=== PATIENT | female | born 1945 | race Caucasian/White ===

== ENCOUNTER → 2018-06-07 14:03 | Outpatient (CLI) | payer MEDICARE, MEDICAID, SELFPAY ==
--- NOTE | 2018-06-07 14:11 | NVE_ITS ---
Venous Exam Indications: 729.5 Pain in limb. IMPRESSIONS 1. There is no evidence of significant Reflux. 2. No evidence of deep or superficial vein thrombosis involving the left lower extremity Left lower extremity venous duplex evaluation. Doppler flow study including spectral analysis, color and chan scale imaging. Location: Vascular laboratory. Patient status: Outpatient. CRITICAL FINDINGS - Reported to: CHANTE - Read back and verified. - 06/07/18 - 0242 - NONE Tables: Venous flow and imaging: + +-------+ + Location Overall Flow properties + +-------+ + Left common femoral Patent Normal phasicity; spontaneous; normal augmentation; compressible + +-------+ + Left saphenofemoral junction Patent Compressible + +-------+ + Left profunda femoral Patent Compressible + +-------+ + Left femoral Patent Normal phasicity; spontaneous; normal augmentation; compressible + +-------+ + Left greater saphenous Patent Normal phasicity; spontaneous; normal augmentation; compressible + +-------+ + Left popliteal Patent Normal phasicity; spontaneous; normal augmentation; compressible + +-------+ + Left posterior tibial Patent Compressible + +-------+ + Left peroneal Patent Compressible + +-------+ + Left gastrocnemius Patent Compressible + +-------+ + Left soleal Patent Compressible + +-------+ + (Report amended ) Electronically signed by: Christophe Truong [id number]
--- NOTE | 2018-06-07 14:32 | XR_ITS ---
XR tibia fibula LT 2V CLINICAL INDICATION: ITS.REASON: LT LEG INJURY, SWELLING ORDERING PHYSICIAN: Lorraine Hunter PATIENT AGE: 72 years Comparison: None FINDINGS: No fracture or dislocation. IMPRESSION: Negative left tib-fib
== END ==
PROVIDERS: PCP Nurse Practitioner Family; Visit Provider Nurse Practitioner Family
DX: M79.604 Pain in right leg (principal); M79.89 Other specified soft tissue disorders; S89.92XA Unspecified injury of left lower leg, initial encounter
CPT/HCPCS: 73590; 93971

== ENCOUNTER 2019-01-04 19:35 | Inpatient (IN) ==
[2019-01-04 20:18] LABS: Basophils % 0.3 % (0.1-2.0); Eosinophils # 0.1 K/mm3 (0.0-0.4); Eosinophils % 0.6 % (0.1-12.0); Hematocrit 42.6 % (37.0-47.0); Hemoglobin 13.9 g/dL (12.2-16.2); Lymphocytes # 1.4 K/mm3 (0.7-4.5); Lymphocytes % 9.5 % (10-50); Mean Corpuscular HGB Conc 32.6 g/dL (31.8-35.4); Mean Corpuscular Hemoglobin 30.7 pg (27.0-31.2); Mean Corpuscular Volume 94.2 fl (81-99); Mean Platelet Volume 8.6 fl (7.4-10.4); Monocytes # 0.9 K/mm3 (0.1-1.0); Monocytes % 6.4 % (1.7-9.3); Neutrophils # 11.9 K/mm3 (1.8-7.8); Neutrophils % 83.2 % (37.0-80.0); Platelet Count 210 K/mm3 (142-424); Red Blood Count 4.52 M/mm3 (4.20-5.40); Red Cell Distribution Width 12.6 % (11.5-17.5); White Blood Count 14.3 K/mm3 (4.8-10.8)
[2019-01-04 20:30] LABS: Microscopic, Urine URINE MICROSCOPIC (MICROSCOPIC)
[2019-01-04 20:35] LABS: Appearance,Urine CLEAR (Clear); Bilirubin,Urine Negative (Negative); Blood, Urine Negative (Negative); Color,Urine YELLOW (Yellow); Glucose,Urine (UA) Negative (Negative); Ketones,Urine Negative (Negative); Leukocyte Esterase,Urine Negative (Negative); PH,Urine 6.5 (5.0-8.5); Protein,Urine Negative (Negative); Specific Gravity, Urine 1.015 (1.005-1.030); Urobilinogen,Urine 0.2 EU/dl (0.2)
[2019-01-04 20:35] LABS: Albumin Level 3.5 gm/dL (3.4-5.0); Albumin/Globulin Ratio 0.9 (1.1-1.8); Bilirubin,Total 0.5 mg/dL (0.2-1.0); C-Reactive Protein 4.4 mg/L (0.0-0.9); Calcium 8.7 mg/dL (8.5-10.1); Globulin 3.7 gm/dl (1.3-3.2); Total Protein,Serum 7.2 gm/dL (6.4-8.2)
[2019-01-04 20:48] LABS: Bacteria,Urine Trace /lpf; WBC,Urine Occasional #/hpf (0-3)
[2019-01-04 21:43] LABS: Erythrocyte Sedimentation Rate 33 mm/hr (0-30)
--- NOTE | 2019-01-04 21:52 | Emergency Department Note ---
ED Disposition Clinical Impression: Diverticulitis, jejunum, Tobacco use, Diverticulosis, AAA (abdominal aortic aneurysm) without rupture, Adrenal mass, left Cholelithiasis Qualifiers: Cholelithiasis location: gallbladder Cholecystitis presence: without cholecystitis Biliary obstruction: without biliary obstruction Qualified Cod e(s): K80.20 - Calculus of gallbladder without cholecystitis without obstruction Disposition: Admitted As Inpatient Condition on Discharge: Good Instructions: DI for Acute Abdomen Referrals: Neftali Quinn MD [Primary Care Provider] - - Critical Care Critical Care Time: No Attestation: On 01/04/19, the high probability of a clinically significant, sudden or life threatening deterioration of the following system(s) required my full and direct attention, intervention and personal management. The time I documented below is in addition to time spent performing reported procedures but includes the following listed in this critical care notation. Medical Decision Making - Medical Records Medical records reviewed: Yes: I reviewed the patient's medical records. - Nico Inquiry Pt receiving controlled substance: No Vital Signs: 01/04/19 19:36 01/04/19 20:32 01/04/19 21:32 Temperature 101.8 F H 100.8 F H Temperature Source Rectal Rectal Pulse Rate [Right] 90 71 78 Respiratory Rate 20 20 20 Blood Pressure [Right Arm] 110/67 115/73 116/68 Blood Pressure Mean [Right Arm] 81 87 84 02 Sat by Pulse Oximetry 94 L 87 L 99 Oxygen Delivery Method Room Air Nasal Cannula Oxygen Flow Rate (LPM) 2 - Lab Data Lab results reviewed: Yes: I reviewed the patient's lab results. Lab Results 01/04/19 20:01: WBC 14.3 H, RBC 4.52, Hgb 13.9, Hct 42.6, MCV 94.2, MCH 30.7, MCHC 32.6, RDW 12.6, Plt Count 210, MPV 8.6, Neut % (Auto) 83.2 H, Lymph % (Auto) 9.5 L, [place] % (Auto) 6.4, Eos % (Auto) 0.6, Baso % (Auto) 0.3, Neut # (Auto) 11.9 H, Lymph # (Auto) 1.4, [place] # (Auto) 0.9, Eos # (Auto) 0.1, Baso # (Auto) 0.0, ESR 33 H 01/04/19 20:01: Sodium 137, Potassium 4.0, Chloride 103, Carbon Dioxide 26, Anion Gap 12.0, BUN 11, Creatinine 0.87, Estimated Creat Clear 63, Estimated GFR 64, Est GFR ( Amer) 77, Glucose 131 H, Calcium 8.7, Total Bilirubin 0.5, AST 11 L, ALT 21, Alkaline Phosphatase 109, C-Reactive Protein 4.4 H, Total Protein 7.2, Albumin 3.5, Globulin 3.7 H, Albumin/Globulin Ratio 0.9 L, Amylase 48, Lipase 100 01/04/19 20:01: Lactate 1.3 01/04/19 20:01: Troponin I < 0.02 01/04/19 20:25: Urine Color Yellow, Urine Appearance Clear, Urine pH 6.5, Ur Specific [place] 1.015, Urine Protein Negative, Urine Glucose (UA) Negative, Urine Ketones Negative, Urine Blood Negative, Urine Nitrate Negative, Urine Bilirubin Negative, Urine Urobilinogen 0.2, Ur Leukocyte Esterase Negative, Urine WBC Occasional, Ur Squamous Epith Cells 3-5, Urine Bacteria Trace 01/04/19 22:15: Specimen Source R/r, O2 % 2, ABG pH 7.42, ABG pCO2 37.5, ABG pO2 91.8, ABG HCO3 23.5, ABG Total CO2 24.7, ABG O2 Saturation 97, ABG Base Excess - 1.1, Christophe Test Y Result diagrams: 01/04/19 20:01 01/04/19 20:01 Orders (Tests/Meds): ED MEDICATIONS Generic Name Dose Route Start Last Admin Trade Name Celia PRN Reason Stop Dose Admin Sodium Chloride 1,000 mls @ 999 mls/hr 01/04/19 20:00 01/04/19 20:26 Sod Chlor 0.9% 1000ml Bag IV 01/04/19 21:00 999 mls/hr .Q1H1M MANE Administration Levofloxacin/Dextrose 750 mg in 150 mls @ 100 mls/hr 01/04/19 22:15 Levofloxacin 750mg/150ml Premix IV 01/18/19 22:14 Q24H MANE Protocol Metronidazole 500 mg in 100 mls @ 100 mls/hr 01/04/19 22:15 Flagyl 500mg/100ml Ivpb IV 01/18/19 22:14 Q8H MANE Protocol Discontinued Medications Generic Name Dose Route Start Last Admin Trade Name Celia PRN Reason Stop Dose Admin Acetaminophen 650 mg 01/04/19 20:15 01/04/19 20:26 Acetaminophen 650mg Suppository RC 01/04/19 20:16 650 mg ONCE ONE Administration Ioversol 75 ml 01/04/19 21:30 01/04/19 21:31 Rad-Optiray 350 100ml Vial IV 01/04/19 21:31 75 ml ONCE ONE Administration Protocol Ketorolac Tromethamine 30 mg 01/04/19 21:29 01/04/19 21:29 Toradol 30mg/Ml Vial IV 01/04/19 21:30 30 mg ONCE ONE Administration Ondansetron HCl 4 mg 01/04/19 21:29 01/04/19 21:29 Zofran 4mg/2ml Vial IV 01/04/19 21:30 4 mg ONCE ONE Administration Sodium Chloride 10 ml 01/04/19 21:30 01/04/19 21:31 Rad-Saline Flush 10ml Syringe IV 01/04/19 21:31 10 ml ONCE ONE Administration ORDERS Category Date Time Status CT abdomen pelvis w con Stat Cat Scan 01/04/19 19:46 Taken XR chest portable Stat Exams 01/04/19 21:52 Taken Blood Culture Stat Micro 01/04/19 20:01 Received ABG [Arterial Blood Gas] Stat RT 01/04/19 21:56 Ordered ECG Request by /Morales Stat Y 01/04/19 21:52 Ordered - CT Data CT Scan: Abdomen, Pelvis Time Received: 21:[address] Reviewed: Yes: I have viewed the radiologist's interpretation Preliminary Findings: Abnormal (see report ) - ECG Data Tracing #1 Normal Sinus Rhythm: Yes Ischemic changes: non-specific ST-T wave changes - Physician Consults Physician Consulted: moise Reason -: Admission Additional Consult: sunitha Reason -: Pt condition Nausea/Vomiting/Diarrhea HPI - General Chief complaint: Abdominal Pain Stated complaint: Abdominal pain Time Seen by Provider: 01/04/19 20:30 Mode of Arrival: EMS Source of Information: Patient, Medical Record Limitations: No Limitations Description of Symptoms (Recalled from ER Triage Doc. by RN): Pt brought in for abdominal pain. Pt states she is having lower abdominal pain that radiates to her legs, pt also states she has had fatigue, denies NVD. - History of Present Illness HPI Narrative: upper abd pain with nausea over the last 2 days MD complaint: nausea, abdominal pain Onset (ago): day(s) Associated Abdominal Pain: Yes Location of pain: LUQ Severity: moderate Associated symptoms: denies other symptoms - Related Data Home Medications Medication Instructions Recorded Confirmed Aspirin [Aspir 81] 81 mg PO DAILY 01/04/19 01/04/19 Multivitamin [Multi-Vitamin Plain] 1 each PO DAILY 01/04/19 01/04/19 Allergies Allergy/AdvReac Type Severity Reaction Status Date / Time diphtheria toxoid,fluid Allergy Unknown Verified 05/25/18 15:27 [DIPHTHERIA TOXOID,FLUID] Penicillins [PENICILLINS] Allergy Unknown Verified 05/25/18 15:27 Sulfa (Sulfonamide Allergy Unknown Verified 05/25/18 15:27 Antibiotics) [SULFA (SULFONAMIDE ANTIBIOTICS)] tetanus and diphtheria Allergy Unknown Verified 05/25/18 15:27 toxoids [TETANUS & DIPHTHERIA TOXOIDS] [facility] History - Hepatitis A Screen Drug use history?: No High risk sexual behaviors?: No History of sexually transmitted infection?: No Currently employed?: No Childcare worker?: No Do you have indoor plumbing?: Yes Do you have electricity?: Yes Attestation statement:: This patient has been screened for Hepatitis A risk factors. I have reviewed the patient's past medical history: Yes Medical History: Reports:: Chronic Obstructive Pulmonary Disease (COPD), Urinary Tract Infection Denies:: Diabetes Mellitus Type 2, Hypertension Laterality Cases: Bilateral: Total Hip Replacement Other Surgeries: Yes: Appendectomy, Hysterectomy-Total - Social History Smoking Status: Current every day smoker Tobacco Type: cigarettes # Packs/Day (cigarettes): 50 Alcohol Intake: never Occupational Status: retired - Psychiatric History Expresses thoughts of harming self/others: None Suicide Plan Description: No Plan ROS Obtained: Yes All systems reviewed & no additional complaints - Constitutional Constitutional: Denies fever(s) - Eyes Eyes: Denies change in vision - ENT Ears, Nose, Mouth, and Throat: Denies sore throat - Cardiovascular Cardiovascular: Denies chest pain - Respiratory Respiratory: No cough - Gastrointestinal Gastrointestingal: Reports: as per HPI, abdominal pain, nausea. Denies: diarrhea - Genitourinary Female Genitourinary: Denies hematuria - Musculoskeletal Musculoskeletal: Denies joint pain - Integumentary/Breasts Skin/Breast: Denies rash - Neurologic Neurologic: Denies seizure-like activity Physical Exam - General General appearance: alert - Head Head exam: normocephalic - Eye Eye exam: Present: PERRL, EOMI. Absent: scleral icterus - ENT ENT exam: Present: mucous membranes dry - Neck Neck exam: Present: trachea midline - Respiratory Respiratory exam: Present: other (dec bs bilat ). Absent: respiratory distress - Cardiovascular Cardiovascular exam: Present: regular rate, systolic murmur, +S4 - Abdominal Exam Abdominal exam: Present: soft - Extremities Exam Extremities exam: Present: full ROM - Neurological Exam Neurological exam: Present: alert, oriented X3, CN II-XII intact - Psychiatric Psychiatric exam: Present: normal affect - Skin Skin exam: Absent: rash
[2019-01-04 22:17] LABS: ABG Base Excess -1.1 mmol/L (-2.4-2.3); ABG HCO3 23.5 mmhg (22.0-26.0); ABG Oxygen Saturation 97 % (90-100); ABG PCO2 37.5 mmhg (35.0-45.0); ABG PH 7.42 mmol/L (7.35-7.45); ABG PO2 91.8 mmhg (80-100); ABG TCO2 24.7 mmhg (23-27); Allen's Test Y; Oxygen 2 %
[2019-01-05 06:48] LABS: Anion Gap 10.7 mEq/L (5-15); Calcium 8.3 mg/dL (8.5-10.1); Potassium 4.7 mmoL/L (3.5-5.1)
[2019-01-05 07:00] LABS: Basophils % 0.2 % (0.1-2.0); Eosinophils # 0.1 K/mm3 (0.0-0.4); Eosinophils % 0.6 % (0.1-12.0); Hematocrit 38.9 % (37.0-47.0); Hemoglobin 12.6 g/dL (12.2-16.2); Lymphocytes # 1.7 K/mm3 (0.7-4.5); Lymphocytes % 12.1 % (10-50); Mean Corpuscular HGB Conc 32.4 g/dL (31.8-35.4); Mean Corpuscular Hemoglobin 30.6 pg (27.0-31.2); Mean Corpuscular Volume 94.7 fl (81-99); Mean Platelet Volume 8.5 fl (7.4-10.4); Monocytes % 6.9 % (1.7-9.3); Neutrophils # 11.1 K/mm3 (1.8-7.8); Neutrophils % 80.1 % (37.0-80.0); Platelet Count 175 K/mm3 (142-424); Red Blood Count 4.11 M/mm3 (4.20-5.40); Red Cell Distribution Width 12.5 % (11.5-17.5); White Blood Count 13.9 K/mm3 (4.8-10.8)
--- NOTE | 2019-01-05 07:00 | History & Physical Report ---
*Admission Date: 01/04/19 *Chief complaint: None *History of present illness: 73-year-old female presented to the emergency department after her neighbors contacted EMS as they believe the patient was confused. The story I get from the patient is that she was within her own home and the neighbors were mowing her lawn. Through her window it would appear that she was in a deep sleep. The neighbors woke her by knocking on her door and when the patient answered the door seemed very confused. She admits she has been experiencing a lot of confusion after sleeping. Neighbors made the decision to contact EMS. When patient arrived in the emergency department she was alert and oriented but did complain of abdominal pain. Further work-up in the ER revealed diverticulitis. Patient is recently been seen in the office over 30 pound weight loss as well as episodes of confusion. Patient admits to normal appetite without changes. Patient has an ongoing work-up to investigate her weight loss. Mental status testing performed in the office revealed normal cognition. [facility] History I have reviewed the patient's past medical history: Yes Medical History: Reports:: Chronic Obstructive Pulmonary Disease (COPD), Urinary Tract Infection Denies:: Cancer, Diabetes Mellitus Type 1, Diabetes Mellitus Type 2, Hypertension, MRSA *Have you ever received a pneumonia vaccine?: No (unknown) *Have you received a flu vaccine this season?: No (unknown) Other Medical History: Reports: Sinus Problems Laterality Cases: Bilateral: Total Hip Replacement Other Surgeries: Yes: Appendectomy, Hysterectomy-Total Amputation: No Fractures: No - *Social History Educational Level: Attended High School Smoking Status: Current every day smoker Tobacco Type: cigarettes # Packs/Day (cigarettes): 1 Alcohol Intake: never *Occupational Status:: retired Housing: apartment *Travel in the last 8 weeks: None - Psychiatric History Expresses thoughts of harming self/others: None Suicide Plan Description: No Plan Family Hx:: Cancer, Diabetes, Hypertension, Tuberculosis Review of Systems - Review of Systems Review of systems:: pertinent systems reviewed and negative unless documented below - Constitutional Denies body ache(s), Denies chills, Denies fatigue, Denies fever(s), Denies headache(s) - *Cardiovascular Denies chest pain, Denies chest pain at rest, Denies chest pain with activity - *Respiratory Denies change in phlegm color, Denies chest congestion, Denies cough - *Gastrointestinal Denies belching, Denies bloating - *Musculoskeletal Reports joint pain - *Neurologic Denies seizure-like activity Meds Home Medications Medication Instructions Recorded Confirmed Type Aspirin [Aspir 81] 81 mg PO DAILY 01/04/19 01/04/19 History Multivitamin [Multi-Vitamin Plain] 1 each PO DAILY 01/04/19 01/04/19 History Allergies Allergy/AdvReac Type Severity Reaction Status Date / Time diphtheria toxoid,fluid Allergy Unknown Verified 05/25/18 15:27 [DIPHTHERIA TOXOID,FLUID] Penicillins [PENICILLINS] Allergy Unknown Verified 05/25/18 15:27 Sulfa (Sulfonamide Allergy Unknown Verified 05/25/18 15:27 Antibiotics) [SULFA (SULFONAMIDE ANTIBIOTICS)] tetanus and diphtheria Allergy Unknown Verified 05/25/18 15:27 toxoids [TETANUS & DIPHTHERIA TOXOIDS] Exam Vital signs and Labs for Last 24 Hours: Temp Pulse Resp BP Pulse Ox 98 F 77 16 101/65 L 98 01/05/19 04:00 01/05/19 04:00 01/05/19 04:00 01/05/19 04:00 01/05/19 04:00 Laboratory Results - last 24 hr 01/04/19 20:01: WBC 14.3 H, RBC 4.52, Hgb 13.9, Hct 42.6, MCV 94.2, MCH 30.7, M CHC 32.6, RDW 12.6, Plt Count 210, MPV 8.6, Neut % (Auto) 83.2 H, Lymph % (Auto) 9.5 L, [place] % (Auto) 6.4, Eos % (Auto) 0.6, Baso % (Auto) 0.3, Neut # (Auto) 11.9 H, Lymph # (Auto) 1.4, [place] # (Auto) 0.9, Eos # (Auto) 0.1, Baso # (Auto) 0.0, ESR 33 H 01/04/19 20:01: Sodium 137, Potassium 4.0, Chloride 103, Carbon Dioxide 26, Anion Gap 12.0, BUN 11, Creatinine 0.87, Estimated Creat Clear 63, Estimated GFR 64, Est GFR ( Amer) 77, Glucose 131 H, Calcium 8.7, Total Bilirubin 0.5, AST 11 L, ALT 21, Alkaline Phosphatase 109, C-Reactive Protein 4.4 H, Total Protein 7.2, Albumin 3.5, Globulin 3.7 H, Albumin/Globulin Ratio 0.9 L, Amylase 48, Lipase 100 01/04/19 20:01: Lactate 1.3 01/04/19 20:01: Troponin I < 0.02 01/04/19 20:25: Urine Color Yellow, Urine Appearance Clear, Urine pH 6.5, Ur Specific [place] 1.015, Urine Protein Negative, Urine Glucose (UA) Negative, Urine Ketones Negative, Urine Blood Negative, Urine Nitrate Negative, Urine Bilirubin Negative, Urine Urobilinogen 0.2, Ur Leukocyte Esterase Negative, Urine WBC Occasional, Ur Squamous Epith Cells 3-5, Urine Bacteria Trace 01/04/19 22:15: Specimen Source R/r, O2 % 2, ABG pH 7.42, ABG pCO2 37.5, ABG pO2 91.8, ABG HCO3 23.5, ABG Total CO2 24.7, ABG O2 Saturation 97, ABG Base Excess - 1.1, Christophe Test Y 01/05/19 05:54: Sodium 139, Potassium 4.7, Chloride 106, Carbon Dioxide 27, Anion Gap 10.7, BUN 13, Creatinine 0.83, Estimated Creat Clear 49, Estimated GFR 67, Est GFR ( Amer) 82, Glucose 100 D, Calcium 8.3 L I & O for Last 24 hours: Intake & Output 01/02/19 01/03/19 01/04/19 01/05/19 11:59 11:59 11:59 11:59 Intake Total 1200 / 1200 Output Total 300 / 300 Balance 900 / 900 Weight 136 lb Narrative: Patient is awake. She is oriented to person, place, time. Facial exam reveals symmetric use of facial muscles with right eye appearing slightly swollen this morning compared to left. Oropharynx is moist and clear. Neck is without lymphadenopathy. Speech is fluent and clear. Lungs are clear. Heart has a regular rate and rhythm. Abdomen is soft with left upper and lower quadrant tenderness to palpation. Bowel sounds are decreased. Patient has active range of motion in all extremities. Assessment and Plan (1) Diverticulitis, jejunum Current visit: Yes Status: Acute Category: Medical Code(s): K57.12 - Diverticulitis of small intestine without perforation or abscess without bleed ing (2) Adrenal mass, left Current visit: Yes Status: Acute Category: Medical Code(s): E27.9 - Disorder of adrenal gland, unspecified (3) Cholelithiasis Current visit: Yes Status: Acute Qualifiers: Cholelithiasis location: gallbladder Cholecystitis presence: without cholecystitis Biliary obstruction: without biliary obstruction Qualified Code(s): K80.20 - Calculus of gallbladder without cholecystitis without obstruction Category: Medical Code(s): K80.20 - Calculus of gallbladder without cholecystitis without obstruction (4) Diverticulosis Current visit: Yes Status: Acute Category: Medical Code(s): K57.90 - Diverticulosis of intestine, part unspecified, without perforation or abscess without bleeding - Assessment and plan all Dx Assessment and Plan for all problems:: Patient has jejunal diverticulitis and has been started on appropriate antibiotics. We will start clear liquids as well. Surgical consult for this atypical form of diverticulitis
--- NOTE | 2019-01-05 07:22 | Consult Report ---
*Admission Date: 01/04/19 *History of present illness: This is a 73-year-old female seen in consultation from the service of Dr. Quinn after presenting overnight to the emergency department with confusion and abdominal pain. She had radiographic evidence of jejunal diverticulitis and was admitted for ongoing antibiotics and serial abdominal exams. She states that she "feels better right now". She continues to have some abdominal pain but states that "it is definitely better". Below is a forwarded copy of HPI from admission H&P: 73-year-old female presented to the emergency department after her neighbors contacted EMS as they believe the patient was confused. The story I get from the patient is that she was within her own home and the neighbors were mowing her lawn. Through her window it would appear that she was in a deep sleep. The neighbors woke her by knocking on her door and when the patient answered the door seemed very confused. She admits she has been experiencing a lot of confusion after sleeping. Neighbors made the decision to contact EMS. When patient arrived in the emergency department she was alert and oriented but did complain of abdominal pain. Further work-up in the ER revealed diverticulitis. Patient is recently been seen in the office over 30 pound weight loss as well as episodes of confusion. Patient admits to normal appetite without changes. Patient has an ongoing work-up to investigate her weight loss. Mental status testing performed in the office revealed normal cognition. Review of Systems - Constitutional Denies chills - *Cardiovascular Denies chest pain - *Respiratory Denies cough - *Gastrointestinal Reports abdominal pain - *Neurologic Reports confusion, Denies headache(s), Denies seizure-like activity - Psychiatric Denies anxiety - Hematologic/Lymphatic Denies easy bleeding H History Medical History: Reports:: Chronic Obstructive Pulmonary Disease (COPD), Urinary Tract Infection Denies:: Cancer, Diabetes Mellitus Type 1, Diabetes Mellitus Type 2, Hypertension, MRSA *Have you ever received a pneumonia vaccine?: No (unknown) *Have you received a flu vaccine this season?: No (unknown) Other Medical History: Reports: Sinus Problems Laterality Cases: Bilateral: Total Hip Replacement Other Surgeries: Yes: Appendectomy, Hysterectomy-Total Amputation: No Fractures: No - *Social History Educational Level: Attended High School Smoking Status: Current every day smoker Tobacco Type: cigarettes # Packs/Day (cigarettes): 1 Alcohol Intake: never *Occupational Status:: retired Housing: apartment *Travel in the last 8 weeks: None - Psychiatric History Expresses thoughts of harming self/others: None Suicide Plan Description: No Plan Family Hx:: Cancer, Diabetes, Hypertension, Tuberculosis Meds Home Medications Medication Instructions Recorded Confirmed Type Aspirin [Aspir 81] 81 mg PO DAILY 01/04/19 01/04/19 History Multivitamin [Multi-Vitamin Plain] 1 each PO DAILY 01/04/19 01/04/19 History Allergies Allergy/AdvReac Type Severity Reaction Status Date / Time diphtheria toxoid,fluid Allergy Unknown Verified 05/25/18 15:27 [DIPHTHERIA TOXOID,FLUID] Penicillins [PENICILLINS] Allergy Unknown Verified 05/25/18 15:27 Sulfa (Sulfonamide Allergy Unknown Verified 05/25/18 15:27 Antibiotics) [SULFA (SULFONAMIDE ANTIBIOTICS)] tetanus and diphtheria Allergy Unknown Verified 05/25/18 15:27 toxoids [TETANUS & DIPHTHERIA TOXOIDS] Exam Vital signs and Labs for Last 24 Hours: Temp Pulse Resp BP Pulse Ox 98 F 77 16 101/65 L 98 01/05/19 04:00 01/05/19 04:00 01/05/19 04:00 01/05/19 04:00 01/05/19 04:00 Laboratory Results - last 24 hr 01/04/19 20:01: WBC 14.3 H, RBC 4.52, Hgb 13.9, Hct 42.6, MCV 94.2, MCH 30.7, MCHC 32.6, RDW 12.6, Plt Count 210, MPV 8.6, Neut % (Auto) 83.2 H, Lymph % (Auto) 9.5 L, [place] % (Auto) 6.4, Eos % (Auto) 0.6, Baso % (Auto) 0.3, Neut # (Auto) 11.9 H, Lymph # (Auto) 1.4, [place] # (Auto) 0.9, Eos # (Auto) 0.1, Baso # (Auto) 0.0, ESR 33 H 01/04/19 20:01: Sodium 137, Potassium 4.0, Chloride 103, Carbon Dioxide 26, Anion Gap 12.0, BUN 11, Creatinine 0.87, Estimated Creat Clear 63, Estimated GFR 64, Est GFR ( Amer) 77, Glucose 131 H, Calcium 8.7, Total Bilirubin 0.5, AST 11 L, ALT 21, Alkaline Phosphatase 109, C-Reactive Protein 4.4 H, Total Protein 7.2, Albumin 3.5, Globulin 3.7 H, Albumin/Globulin Ratio 0.9 L, Amylase 48, Lipase 100 01/04/19 20:01: Lactate 1.3 01/04/19 20:01: Troponin I < 0.02 01/04/19 20:25: Urine Color Yellow, Urine Appearance Clear, Urine pH 6.5, Ur Specific [place] 1.015, Urine Protein Negative, Urine Glucose (UA) Negative, Urine Ketones Negative, Urine Blood Negative, Urine Nitrate Negative, Urine Bilirubin Negative, Urine Urobilinogen 0.2, Ur Leukocyte Esterase Negative, Urine WBC Occasional, Ur Squamous Epith Cells 3-5, Urine Bacteria Trace 01/04/19 22:15: Specimen Source R/r, O2 % 2, ABG pH 7.42, ABG pCO2 37.5, ABG pO2 91.8, ABG HCO3 23.5, ABG Total CO2 24.7, ABG O2 Saturation 97, ABG Base Excess -1.1, Christophe Test Y 01/05/19 05:54: WBC 13.9 H, RBC 4.11 L, Hgb 12.6, Hct 38.9, MCV 94.7, MCH 30.6, MCHC 32.4, RDW 12.5, Plt Count 175, MPV 8.5, Neut % (Auto) 80.1 H, Lymph % (Auto) 12.1, [place] % (Auto) 6.9, Eos % (Auto) 0.6, Baso % (Auto) 0.2, Neut # (Auto) 11.1 H, Lymph # (Auto) 1.7, [place] # (Auto) 1.0, Eos # (Auto) 0.1, Baso # (Auto) 0.0 01/05/19 05:54: Sodium 139, Potassium 4.7, Chloride 106, Carbon Dioxide 27, Anion Gap 10.7, BUN 13, Creatinine 0.83, Estimated Creat Clear 49, Estimated GFR 67, Est GFR ( Amer) 82, Glucose 100 D, Calcium 8.3 L I & O for Last 24 hours: Intake & Output 01/02/19 01/03/19 01/04/19 01/05/19 11:59 11:59 11:59 11:59 Intake Total 1200 / 1200 Output Total 300 / 300 Balance 900 / 900 Weight 136 lb - Constitutional no acute distress - *Routine Respiratory Exam Absent: respiratory distress - *Routine Cardiovascular Exam Present: RRR - *Routine Abdominal Exam Present: soft, tenderness. Absent: guarding Comments: Tenderness throughout mid abdomen Results - Labs 01/05/19 05:54 01/05/19 05:54 Laboratory Results - last 24 hr 01/04/19 20:01: WBC 14.3 H, RBC 4.52, Hgb 13.9, Hct 42.6, MCV 94.2, MCH 30.7, MCHC 32.6, RDW 12.6, Plt Count 210, MPV 8.6, Neut % (Auto) 83.2 H, Lymph % (Auto) 9.5 L, [place] % (Auto) 6.4, Eos % (Auto) 0.6, Baso % (Auto) 0.3, Neut # (Auto) 11.9 H, Lymph # (Auto) 1.4, [place] # (Auto) 0.9, Eos # (Auto) 0.1, Baso # (Auto) 0.0, ESR 33 H 01/04/19 20:01: Sodium 137, Potassium 4.0, Chloride 103, Carbon Dioxide 26, Anion Gap 12.0, BUN 11, Creatinine 0.87, Estimated Creat Clear 63, Estimated GFR 64, Est GFR ( Amer) 77, Glucose 131 H, Calcium 8.7, Total Bilirubin 0.5, AST 11 L, ALT 21, Alkaline Phosphatase 109, C-Reactive Protein 4.4 H, Total Protein 7.2, Albumin 3.5, Globulin 3.7 H, Albumin/Globulin Ratio 0.9 L, Amylase 48, Lipase 100 01/04/19 20:01: Lactate 1.3 01/04/19 20:01: Troponin I < 0.02 01/04/19 20:25: Urine Color Yellow, Urine Appearance Clear, Urine pH 6.5, Ur Specific [place] 1.015, Urine Protein Negative, Urine Glucose (UA) Negative, Urine Ketones Negative, Urine Blood Negative, Urine Nitrate Negative, Urine Bilirubin Negative, Urine Urobilinogen 0.2, Ur Leukocyte Esterase Negative, Urine WBC Occasional, Ur Squamous Epith Cells 3-5, Urine Bacteria Trace 01/04/19 22:15: Specimen Source R/r, O2 % 2, ABG pH 7.42, ABG pCO2 37.5, ABG pO2 91.8, ABG HCO3 23.5, ABG Total CO2 24.7, ABG O2 Saturation 97, ABG Base Excess - 1.1, Christophe Test Y 01/05/19 05:54: WBC 13.9 H, RBC 4.11 L, Hgb 12.6, Hct 38.9, MCV 94.7, MCH 30.6, MCHC 32.4, RDW 12.5, Plt Count 175, MPV 8.5, Neut % (Auto) 80.1 H, Lymph % (Auto) 12.1, [place] % (Auto) 6.9, Eos % (Auto) 0.6, Baso % (Auto) 0.2, Neut # (Auto) 11.1 H, Lymph # (Auto) 1.7, [place] # (Auto) 1.0, Eos # (Auto) 0.1, Baso # (Auto) 0.0 01/05/19 05:54: Sodium 139, Potassium 4.7, Chloride 106, Carbon Dioxide 27, Anion Gap 10.7, BUN 13, Creatinine 0.83, Estimated Creat Clear 49, Estimated GFR 67, Est GFR ( Amer) 82, Glucose 100 D, Calcium 8.3 L - Imaging CT scan - abdomen: report reviewed, image reviewed CT scan - pelvis: report reviewed, image reviewed Assessment and Plan (1) Diverticulitis, jejunum Current visit: Yes Status: Acute Category: Medical Code(s): K57.12 - Diverticulitis of small intestine without perforation or abscess without bleeding Continue antibiotics Limited clear liquids for now Serial abdominal exams Repeat CBC in a.m. (2) Adrenal mass, left Current visit: Yes Status: Acute Category: Medical Code(s): E27.9 - Disorder of adrenal gland, unspecified (3) Cholelithiasis Current visit: Yes Status: Acute Qualifiers: Cholelithiasis location: gallbladder Cholecystitis presence: without cholecystitis Biliary obstruction: without biliary obstruction Qualified Code(s): K80.20 - Calculus of gallbladder without cholecystitis without obstruction Category: Medical Code(s): K80.20 - Calculus of gallbladder without cholecystitis without obstruction (4) Diverticulosis Current visit: Yes Status: Acute Category: Medical Code(s): K57.90 - Diverticulosis of intestine, part unspecified, without perforation or abscess without bleeding
--- NOTE | 2019-01-05 07:58 | Pharmacy Consult Notes ---
[facility] Pharmacy VTE Monitoring - Patient Demographics Admission date: 01/04/19 Report Date: 01/05/19 Time: 07:57 Allergies/Adverse Reactions: Patient Allergies diphtheria toxoid,fluid [DIPHTHERIA TOXOID,FLUID] Allergy (Unknown, Verified 05/25/18 15:27) Penicillins [PENICILLINS] Allergy (Unknown, Verified 05/25/18 15:27) Sulfa (Sulfonamide Antibiotics) [SULFA (SULFONAMIDE ANTIBIOTICS)] Allergy (Unknown, Verified 05/25/18 15:27) tetanus and diphtheria toxoids [TETANUS & DIPHTHERIA TOXOIDS] Allergy (Unknown, Verified 05/25/18 15:27) Height: 1.63 m Weight: 61.689 kg Patient Problems: Current Active Problems (Updated 01/05/19 @ 07:02 by Neftali Quinn MD) Diverticulitis, jejunum (Acute) Tobacco use (Acute) Diverticulosis (Acute) Cholelithiasis (Acute) AAA (abdominal aortic aneurysm) without rupture (Acute) Adrenal mass, left (Acute) - VTE Risk Labs: VTE Related Lab Results Hgb 12.6 g/dL (12.2-16.2) 01/05/19 05:54 Hct 38.9 % (37.0-47.0) 01/05/19 05:54 Plt Count 175 K/mm3 (142-424) 01/05/19 05:54 BUN 13 mg/dL (7-18) 01/05/19 05:54 Creatinine 0.83 mg/dL (0.55-1.02) 01/05/19 05:54 Estimated Creat Clear 49 mL/min (50-200) 01/05/19 05:54 Was VTE Risk Assessment Performed: Yes VTE Risk Level: Moderate Risk Clinical Trial Participant: No - Prophylaxis VTE Prophylaxis Ordered?: Yes Types of VTE Prophylaxis: TEDS Knee High
--- NOTE | 2019-01-06 06:36 | Progress Note ---
Subjective Patient reports: still having pain (some increased pain overnight (she states it has "eased of some")) Exam Vital signs and Labs for Last 24 Hours: Temp Pulse Resp BP Pulse Ox 98.4 F 75 18 109/60 L 98 01/06/19 04:00 01/06/19 04:00 01/06/19 04:00 01/06/19 04:00 01/06/19 04:00 Laboratory Results - last 24 hr 01/05/19 05:54: WBC 13.9 H, RBC 4.11 L, Hgb 12.6, Hct 38.9, MCV 94.7, MCH 30.6, MCHC 32.4, RDW 12.5, Plt Count 175, MPV 8.5, Neut % (Auto) 80.1 H, Lymph % (Auto) 12.1, [place] % (Auto) 6.9, Eos % (Auto) 0.6, Baso % (Auto) 0.2, Neut # (Auto) 11.1 H, Lymph # (Auto) 1.7, [place] # (Auto) 1.0, Eos # (Auto) 0.1, Baso # (Auto) 0.0 01/05/19 05:54: Sodium 139, Potassium 4.7, Chloride 106, Carbon Dioxide 27, Anion Gap 10.7, BUN 13, Creatinine 0.83, Estimated Creat Clear 49, Estimated GFR 67, Est GFR ( Amer) 82, Glucose 100 D, Calcium 8.3 L I & O for Last 24 hours: Intake & Output 01/03/19 01/04/19 01/05/19 01/06/19 11:59 11:59 11:59 11:59 Intake Total 1300 / 1300 837 / 837 Output Total 300 / 300 650 / 650 Balance 1000 / 1000 187 / 187 Weight 136 lb - Constitutional no acute distress - *Routine Respiratory Exam Absent: respiratory distress - *Routine Cardiovascular Exam Present: RRR - *Routine Abdominal Exam Present: soft, tenderness, guarding Progress Note: A&P (1) Diverticulitis, jejunum Status: Acute Assessment and plan: increased pain overnight (somewhat "eased off now" per patient) flat and upright films NPO f/u pending AM labs continue serial abdominal exams Current Visit: Yes (2) Adrenal mass, left Status: Acute Current Visit: Yes (3) Cholelithiasis Status: Acute Current Visit: Yes (4) Diverticulosis Status: Acute Current Visit: Yes
[2019-01-06 07:08] LABS: Basophils % 0.2 % (0.1-2.0); Eosinophils # 0.1 K/mm3 (0.0-0.4); Eosinophils % 0.3 % (0.1-12.0); Hematocrit 35.2 % (37.0-47.0); Hemoglobin 11.7 g/dL (12.2-16.2); Lymphocytes # 1.5 K/mm3 (0.7-4.5); Lymphocytes % 9.8 % (10-50); Mean Corpuscular HGB Conc 33.2 g/dL (31.8-35.4); Mean Corpuscular Hemoglobin 31.4 pg (27.0-31.2); Mean Corpuscular Volume 94.7 fl (81-99); Mean Platelet Volume 8.5 fl (7.4-10.4); Monocytes % 6.5 % (1.7-9.3); Neutrophils # 12.5 K/mm3 (1.8-7.8); Neutrophils % 83.1 % (37.0-80.0); Platelet Count 172 K/mm3 (142-424); Red Blood Count 3.71 M/mm3 (4.20-5.40); Red Cell Distribution Width 12.6 % (11.5-17.5); White Blood Count 15.1 K/mm3 (4.8-10.8)
--- NOTE | 2019-01-06 07:10 | Progress Note ---
Internal Medicine - PN: Subj *Date: 01/06/19 *Time: 07:06 Interval history: Patient complains of feeling worse this morning. She has increased abdominal pain. Nursing staff reports patient has confusion after awakening from sleep that resolves after reorientation Exam Vital signs and Labs for Last 24 Hours: Temp Pulse Resp BP Pulse Ox 98.4 F 75 18 109/60 L 98 01/06/19 04:00 01/06/19 04:00 01/06/19 04:00 01/06/19 04:00 01/06/19 04:00 I & O for Last 24 hours: Intake & Output 01/03/19 01/04/19 01/05/19 01/06/19 11:59 11:59 11:59 11:59 Intake Total 1300 / 1300 837 / 837 Output Total 300 / 300 650 / 650 Balance 1000 / 1000 187 / 187 Weight 136 lb 134 lb Narrative: Lungs are clear to auscultation. Heart has a regular rate and rhythm. Abdomen is soft with epigastric and left upper quadrant tenderness to palpation worse than yesterday. Bowel sounds are decreased Assessment and Plan (1) Diverticulitis, jejunum Current visit: Yes Status: Acute Category: Medical Code(s): K57.12 - Diverticulitis of small intestine without perforation or abscess without bleeding (2) Adrenal mass, left Current visit: Yes Status: Acute Category: Medical Code(s): E27.9 - Disorder of adrenal gland, unspecified (3) Cholelithiasis Current visit: Yes Status: Acute Qualifiers: Cholelithiasis location: gallbladder Cholecystitis presence: without cho lecystitis Biliary obstruction: without biliary obstruction Qualified Code(s): K80.20 - Calculus of gallbladder without cholecystitis without obst ruction Category: Medical Code(s): K80.20 - Calculus of gallbladder without cholecystitis without obstruction (4) Diverticulosis Current visit: Yes Status: Acute Category: Medical Code(s): K57.90 - Diverticulosis of intestine, part unspecified, without perforation or abscess without bleeding - Assessment and plan all Dx Assessment and Plan for all problems:: Patient is seemingly worsened. Dr. Sandoval has made the patient n.p.o. and we will await labs this morning as well as a flat and upright abdominal film. There is potential for surgery
[2019-01-06 10:50] LABS: Lymphocytes % 10 % (10-50); Monocytes % 5 % (2-9); Neutrophils % 82 % (42-76); Total Cells Counted 100
--- NOTE | 2019-01-06 21:26 | Operative Note ---
Date of procedure: 01/06/19 Pre-op Diagnosis:: Jejunal diverticulitis Post-op Diagnosis:: Same Procedure performed:: Laparotomy with partial jejunal resection Surgeon:: Davin Mendiola MD FURNACE PROCESS SUPERVISOR:: Tj Cedillo Anesthesia: GETA Estimated blood loss (mL): 50 Operative findings:: Severe focal jejunal inflammation and changes consistent with contained per foration at site of large diverticulum Multiple additional jejunal diverticuli that were not inflamed Operative note:: After informed consent was obtained the patient was taken to the operating room and placed in the supine position. General anesthesia was induced and her abdomen was prepped and draped in a sterile fashion. A midline laparotomy incision was made above the umbilicus. Dense adhesions of the omentum were carefully taken down (dense adhesions projecting into the pelvis). Once the omentum was released and elevated the small bowel was carefully evaluated. Within the jejunum multiple diverticuli were noted. A large diverticulum was severely inflamed and phlegmonous changes were also noted. Severe inflammatory response and thickening throughout the mesentery also noted at this site. This area of severe inflammation showed changes consistent with contained perforation. The additional diverticuli that were seen were in fairly close proximity and the decision was made to proceed with resection of the large inflamed diverticulum and the 3 additional diverticulum. A MARIANA stapler was utilized to transect the jejunum proximal and distal to the area of concern. The intervening mesentery was then taken down and a clamp/cut/tie method utilizing Vicryl tie ligation. The specimen was passed off for pathologic evaluation. The 2 ends were then brought into side to side apposition and a stapled anastomosis was created utilizing a MARIANA stapler. The common opening was then closed with a TA stapler. Imbrication with 4-0 Nurolon at the "crotch" and had a few sites along the staple margin were then completed. The mesenteric defect was reapproximated with running 2-0 Vicryl. The entire abdominal cavity was thoroughly irrigated. No sign of injury or bleeding was noted. The nasogastric tube was confirmed to be in good position. Fascia was then reapproximated with #1 Novafil and skin was partially closed with interrupted 4- 0 nylon. The intervening areas were packed open with moistened Kerlix. Dressings were applied and the patient was transferred to recovery in stable condition. Condition: stable Disposition: PACU Specimens:: Partial jejunal resection (jejunal diverticulitis) Complications:: No immediate
--- NOTE | 2019-01-06 21:46 | Progress Note ---
[facility] Anesthesia Checklist - Patient Identification Patient Identification: Arm Band, Family, Verbal (Name & ) - Structural Data Admitted From: Inpatient Planned Operative Procedure/s: Exploratory laparotomy Consent for Planned Operative Procedure(s) Verified: Yes Verified Documents: Surgical Consent, History and Physical - NPO Status Verified Time NPO: 00:00 - Chart Verification Results Verified: CBC, BMP - Additional verifications Anesthesia Reactions: No - Airway Assessment C-Spine Mobility Assessed: Yes TMJ Mobility Assessed: Yes Dentition: Dentures-good fit (upper, lower poor dentition) - Neurological Assessment Level of Consciousness: Awake, Inappropriate, Disoriented Hx Seizures: No Numbness or tingling in extremities: No - Anesthesia Plan Anesthesia Risk discussed: Yes Anesthesia Plan: Verified ASA Class: III Anesthesia Type: General [facility] History I have reviewed the patient's past medical history: Yes Medical History: Reports:: Anxiety, Chronic Obstructive Pulmonary Disease (COPD), Urinary Tract Infection Denies:: Cancer, Diabetes Mellitus Type 1, Diabetes Mellitus Type 2, Hypertension, MRSA *Have you ever received a pneumonia vaccine?: No (unknown) *Have you received a flu vaccine this season?: No (unknown) Other Medical History: Reports: Sinus Problems, Other (left adrenal mass) Laterality Cases: Bilateral: Total Hip Replacement Other Surgeries: Yes: Appendectomy, Hysterectomy-Total Amputation: No Fractures: No - *Social History Educational Level: Attended High School Smoking Status: Current every day smoker Tobacco Type: cigarettes # Packs/Day (cigarettes): 1 Alcohol Intake: never *Occupational Status:: retired Housing: apartment *Travel in the last 8 weeks: None - Psychiatric History Expresses thoughts of harming self/others: None Suicide Plan Description: No Plan Family Hx:: Cancer, Diabetes, Hypertension, Tuberculosis
--- NOTE | 2019-01-06 21:47 | Progress Note ---
[facility] Anesthesia Record Part I Intake, IV Amount: 1,400 Estimated blood loss (mL): 120 Urine output (mL): 300 Blood Products used (#): none Blood Pressure: 145/84 SaO2: 96 Pulse Rate: 84 Respiratory Rate: 16 Temperature: 99.2 F Patient is:: Drowsy, Nasal O2, Stable Stable to PACU at:: 21:30
--- NOTE | 2019-01-06 21:48 | Progress Note ---
[facility] Anesthesia Record Part II Discharge Time: 22:00 Destination: Medical Surgical Department PACU nurse assessment reviewed?: Yes Patient Condition:: Good Anesthesia Complications:: None Swallowing reflex intact?: Yes Cyanosis?: No
[2019-01-07 07:08] LABS: Hematocrit 35.3 % (37.0-47.0); Hemoglobin 11.1 g/dL (12.2-16.2); Lymphocytes # 0.8 K/mm3 (0.7-4.5); Lymphocytes % 5.9 % (10-50); Mean Corpuscular HGB Conc 31.5 g/dL (31.8-35.4); Mean Corpuscular Hemoglobin 30.6 pg (27.0-31.2); Mean Corpuscular Volume 97.3 fl (81-99); Mean Platelet Volume 8.5 fl (7.4-10.4); Monocytes # 0.6 K/mm3 (0.1-1.0); Monocytes % 4.2 % (1.7-9.3); Neutrophils # 11.7 K/mm3 (1.8-7.8); Neutrophils % 89.8 % (37.0-80.0); Platelet Count 188 K/mm3 (142-424); Red Blood Count 3.62 M/mm3 (4.20-5.40); Red Cell Distribution Width 12.5 % (11.5-17.5)
--- NOTE | 2019-01-07 07:23 | Progress Note ---
Internal Medicine - PN: Subj *Date: 01/07/19 *Time: 07:20 Interval history: Patient is frustrated this morning by the presence of mittens being used his restraints on her. Postoperatively patient experienced some confusion. Maintenance of the NG tube is vital to her recovery and so the patient was placed in protective mittens. She is oriented this morning. Not only she frustrated by the mittens but through conversation it seems appear she does not understand the severity of her illness. Exam Vital signs and Labs for Last 24 Hours: Temp Pulse Resp BP Pulse Ox 98.3 F 96 H 20 130/76 96 01/07/19 04:00 01/07/19 04:00 01/07/19 04:00 01/07/19 04:00 01/07/19 04:00 Laboratory Results - last 24 hr 01/06/19 07:00: Total Counted 100, Neutrophils % (Manual) 82 H, Band Neutrophils % 2.0, Lymphocytes % (Manual) 10, Atypical Lymphs % 1.0, Monocytes % (Manual) 5, Platelet Estimate Normal 01/06/19 21:00: Urine Color Yellow, Urine Appearance Clear, Urine pH 6.0, Ur Specific [place] 1.020, Urine Protein Negative, Urine Glucose (UA) Negative, Urine Ketones 1+, Urine Blood Negative, Urine Nitrate Negative, Urine Bilirubin Negative, Urine Urobilinogen 0.2, Ur Leukocyte Esterase Negative, Urine WBC Occasional, Ur Squamous Epith Cells 5-10, Urine Bacteria Trace 01/07/19 06:50: WBC 13.0 H, RBC 3.62 L, Hgb 11.1 L, Hct 35.3 L, MCV 97.3, MCH 30.6, MCHC 31.5 L, RDW 12.5, Plt Count 188, MPV 8.5, Neut % (Auto) 89.8 H, Lymph % (Auto) 5.9 L, [place] % (Auto) 4.2, Eos % (Auto) 0.0 L, Baso % (Auto) 0.0 L, Neut # (Auto) 11.7 H, Lymph # (Auto) 0.8, [place] # (Auto) 0.6, Eos # (Auto) 0.0, Baso # (Auto) 0.0 I & O for Last 24 hours: Intake & Output 01/04/19 01/05/19 01/06/1901/07/19 11:59 11:59 11:59 11:59 Intake Total 1300 / 1300 2240 / 2240 2267 / 2267 Output Total 300 / 300 950 / 950 1350 / 1350 Balance 1000 / 1000 1290 / 1290 917 / 917 Weight 136 lb 134 lb Microbiology Reports for the Last 24 Hours: Microbiology 01/04/19 20:01 Blood Blood Culture - Preliminary NO GROWTH AFTER 48 HOURS 01/04/19 20:01 Blood Blood Culture - Preliminary NO GROWTH AFTER 48 HOURS Narrative: Patient is awake and alert. She is oriented to person place and time. Lungs are clear to auscultation. Heart has a regular rate and rhythm. Abdomen has an intact dressing. Bowel sounds are absent. Abdomen is soft with mild tenderness Assessment and Plan (1) Diverticulitis, jejunum Current visit: Yes Status: Acute Category: Medical Code(s): K57.12 - Diverticulitis of small intestine without perforation or abscess without bleeding (2) Adrenal mass, left Current visit: Yes Status: Acute Category: Medical Code(s): E27.9 - Disorder of adrenal gland, unspecified (3) Cholelithiasis Current visit: Yes Status: Acute Qualifiers: Cholelithiasis location: gallbladder Cholecystitis presence: without cholecystitis Biliary obstruction: without biliary obstruction Qualified Code(s): K80.20 - Calculus of gallbladder without cholecystitis without obstruction Category: Medical Code(s): K80.20 - Calculus of gallbladder without cholecystitis without obstruction (4) Diverticulosis Current visit: Yes Status: Acute Category: Medical Code(s): K57.90 - Diverticulosis of intestine, part unspecified, without perforation or abscess without bleeding - Assessment and plan all Dx Assessment and Plan for all problems:: Restraints will be removed. It was emphasized to the patient the need to maintain her NG tube and nursing staff will monitor this closely. It was explained to the patient that should she become confused and pull out IVs or NG tube that she will require some form of restraint to ensure her recovery
--- NOTE | 2019-01-07 07:26 | Progress Note ---
Subjective Narrative: somewhat confused this AM Exam Vital signs and Labs for Last 24 Hours: Temp Pulse Resp BP Pulse Ox 98.4 F 102 H 18 149/66 H 97 01/07/19 05:00 01/07/19 05:00 01/07/19 05:00 01/07/19 05:00 01/07/19 05:00 Laboratory Results - last 24 hr 01/06/19 07:00: Total Counted 100, Neutrophils % (Manual) 82 H, Band Neutrophils % 2.0, Lymphocytes % (Manual) 10, Atypical Lymphs % 1.0, Monocytes % (Manual) 5, Platelet Estimate Normal 01/06/19 21:00: Urine Color Yellow, Urine Appearance Clear, Urine pH 6.0, Ur Specific [place] 1.020, Urine Protein Negative, Urine Glucose (UA) Negative, Urine Ketones 1+, Urine Blood Negative, Urine Nitrate Negative, Urine Bilirubin Negative, Urine Urobilinogen 0.2, Ur Leukocyte Esterase Negative, Urine WBC Occasional, Ur Squamous Epith Cells 5-10, Urine Bacteria Trace 01/07/19 06:50: WBC 13.0 H, RBC 3.62 L, Hgb 11.1 L, Hct 35.3 L, MCV 97.3, MCH 30.6, MCHC 31.5 L, RDW 12.5, Plt Count 188, MPV 8.5, Neut % (Auto) 89.8 H, Lymph % (Auto) 5.9 L, [place] % (Auto) 4.2, Eos % (Auto) 0.0 L, Baso % (Auto) 0.0 L, Neut # (Auto) 11.7 H, Lymph # (Auto) 0.8, [place] # (Auto) 0.6, Eos # (Auto) 0.0, Baso # (Auto) 0.0 I & O for Last 24 hours: Intake & Output 01/04/19 01/05/19 01/06/19 01/07/19 11:59 11:59 11:59 11:59 Intake Total 1300 / 1300 2240 / 2240 2267 / 2267 Output Total 300 / 300 950 / 950 1350 / 1350 Balance 1000 / 1000 1290 / 1290 917 / 917 Weight 136 lb 134 lb Microbiology Reports for the Last 24 Hours: Microbiology 01/04/19 20:01 Blood Blood Culture - Preliminary NO GROWTH AFTER 48 HOURS 01/04/19 20:01 Blood Blood Culture - Preliminary NO GROWTH AFTER 48 HOURS - Constitutional no acute distress - *Routine Respiratory Exam Absent: respiratory distress - *Routine Cardiovascular Exam Present: tachycardia - *Routine Abdominal Exam Present: soft Progress Note: A&P (1) Diverticulitis, jejunum Status: Acute Assessment and plan: Somewhat confused status post laparotomy with partial jejunal resection. Follow-up pending labs Nasogastric decompression Dressing changes Current Visit: Yes (2) Adrenal mass, left Status: Acute Current Visit: Yes (3) Cholelithiasis Status: Acute Current Visit: Yes (4) Diverticulosis Status: Acute Current Visit: Yes
[2019-01-07 07:39] LABS: Anion Gap 12.7 mEq/L (5-15); Potassium 3.7 mmoL/L (3.5-5.1)
[2019-01-07 08:17] LABS: Lymphocytes % 8 % (10-50); Monocytes % 2 % (2-9); Neutrophils % 83 % (42-76); Total Cells Counted 100
[2019-01-07 08:18] LABS: RBC Morphology Normal
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
[2019-01-08 07:34] LABS: Basophils % 0.3 % (0.1-2.0); Eosinophils # 0.1 K/mm3 (0.0-0.4); Lymphocytes # 1.6 K/mm3 (0.7-4.5)
[2019-01-08 07:40] LABS: Anion Gap 14.4 mEq/L (5-15); Calcium 7.8 mg/dL (8.5-10.1); Potassium 3.4 mmoL/L (3.5-5.1)
[2019-01-08 07:55] LABS: Hematocrit 31.3 % (37.0-47.0); Lymphocytes % 16.1 % (10-50); Mean Corpuscular HGB Conc 30.6 g/dL (31.8-35.4); Mean Corpuscular Hemoglobin 29.8 pg (27.0-31.2); Mean Corpuscular Volume 97.3 fl (81-99); Mean Platelet Volume 8.6 fl (7.4-10.4); Monocytes # 0.6 K/mm3 (0.1-1.0); Monocytes % 6.4 % (1.7-9.3); Neutrophils # 7.6 K/mm3 (1.8-7.8); Neutrophils % 76.2 % (37.0-80.0); Platelet Count 195 K/mm3 (142-424); Red Blood Count 3.21 M/mm3 (4.20-5.40); Red Cell Distribution Width 12.8 % (11.5-17.5)
--- NOTE | 2019-01-08 07:58 | Progress Note ---
Subjective Patient reports: no new complaints (Remains somewhat confused) Exam Vital signs and Labs for Last 24 Hours: Temp Pulse Resp BP Pulse Ox 97.9 F 90 20 101/61 L 97 01/08/19 03:46 01/08/19 03:46 01/08/19 03:46 01/08/19 03:46 01/08/19 03:46 Laboratory Results - last 24 hr 01/07/19 06:50: Total Counted 100, Neutrophils % (Manual) 83 H, Band Neutrophils % 4.0, Lymphocytes % (Manual) 8 L, Monocytes % (Manual) 2, Metamyelocytes % 3.0 H, Platelet Estimate Normal, RBC Morphology Normal 01/08/19 06:12: Sodium 142, Potassium 3.4 L, Chloride 109 H, Carbon Dioxide 22, Anion Gap 14.4, BUN 11, Creatinine 0.63, Estimated Creat Clear 48, Estimated GFR 93, Est GFR ( Amer) 112 D, Glucose 79 D, Calcium 7.8 L I & O for Last 24 hours: Intake & Output 01/05/19 01/06/19 01/07/19 01/08/19 11:59 11:59 11:59 11:59 Intake Total 1300 / 1300 2240 / 2240 2517 / 2517 1062 / 1062 Output Total 300 / 300 950 / 950 1350 / 1350 575 / 575 Balance 1000 / 1000 1290 / 1290 1167 / 1167 487 / 487 Weight 136 lb 134 lb Narrative: Nasogastric tube replaced yesterday evening secondary to patient removing - Constitutional no acute distress - *Routine Respiratory Exam Absent: respiratory distress - *Routine Cardiovascular Exam Present: RRR - *Routine Abdominal Exam Present: soft Comments: Dressings intact. No spreading cellulitis. Progress Note: A&P (1) Diverticulitis, jejunum Status: Acute Assessment and plan: Stable postoperative day 2 status post partial jejunal resection. Continue nasogastric decompression DC Mccoy (Mccoy catheter maintained during initial postoperative day secondary to a combination of need for very strict I's and O's in combination with patient's confusion/poor mobility) Increase ambulation Current Visit: Yes (2) Adrenal mass, left Status: Acute Current Visit: Yes (3) Cholelithiasis Status: Acute Current Visit: Yes (4) Diverticulosis Status: Acute Current Visit: Yes
[2019-01-08 07:59] LABS: Hemoglobin 9.6 g/dL (12.2-16.2)
[2019-01-08 14:19] LABS: Hematocrit 29.1 % (37.0-47.0); Hemoglobin 9.6 g/dL (12.2-16.2)
--- NOTE | 2019-01-08 14:29 | Progress Note ---
Internal Medicine - PN: Subj *Date: 01/08/19 *Time: 14:28 Exam Vital signs and Labs for Last 24 Hours: Temp Pulse Resp BP Pulse Ox 98.1 F 90 17 101/63 L 98 01/08/19 08:00 01/08/19 08:00 01/08/19 08:00 01/08/19 08:00 01/08/19 08:00 Laboratory Results - last 24 hr 01/08/19 06:12: WBC 10.0, RBC 3.21 L, Hgb 9.6 L D, Hct 31.3 L, MCV 97.3, MCH 29.8, MCHC 30.6 L, RDW 12.8, Plt Count 195, MPV 8.6, Neut % (Auto) 76.2, Lymph % (Auto) 16.1, [place] % (Auto) 6.4, Eos % (Auto) 1.0, Baso % (Auto) 0.3, Neut # (Auto) 7.6, Lymph # (Auto) 1.6, [place] # (Auto) 0.6, Eos # (Auto) 0.1, Baso # (Auto) 0.0 01/08/19 06:12: Sodium 142, Potassium 3.4 L, Chloride 109 H, Carbon Dioxide 22, Anion Gap 14.4, BUN 11, Creatinine 0.63, Estimated Creat Clear 48, Estimated GFR 93, Est GFR ( Amer) 112 D, Glucose 79 D, Calcium 7.8 L 01/08/19 14:07: Hgb 9.6 L, Hct 29.1 L I & O for Last 24 hours: Intake & Output 01/05/19 01/06/19 01/07/19 01/08/19 23:59 23:59 23:59 23:59 Intake Total 1087 / 1087 3520 / 3520 350 / 350 1262 / 1262 Output Total 600 / 600 1150 / 1150 1400 / 1400 25 / 25 Balance 487 / 487 2370 / 2370 -1050 / -1050 1237 / 1237 Weight 61.689 kg 60.781 kg Assessment and Plan (1) Diverticulitis, jejunum Current visit: Yes Status: Acute Category: Medical Code(s): K57.12 - Diverticulitis of small intestine without perforation or abscess without bleeding (2) Adrenal mass, left Current visit: Yes Status: Acute Category: Medical Code(s): E27.9 - Disorder of adrenal gland, unspecified (3) Cholelithiasis Current visit: Yes Status: Acute Qualifiers: Cholelithiasis location: gallbladder Cholecystitis presence: without cholecystitis Biliary obstruction: without biliary obstruction Qualified Code(s): K80.20 - Calculus of gallbladder without cholecystitis without obstruction Category: Medical Code(s): K80.20 - Calculus of gallbladder without cholecystitis without obstruction (4) Diverticulosis Current visit: Yes Status: Acute Category: Medical Code(s): K57.90 - Diverticulosis of intestine, part unspecified, without perforation or abscess without bleeding The patient's infection will respond to the chosen ABx?: Yes Is the patient receiving the right drug, dose, and route?: Yes Could a more targeted ABx be ordered?: No
[2019-01-09 07:30] LABS: Basophils % 0.3 % (0.1-2.0); Eosinophils # 0.3 K/mm3 (0.0-0.4); Eosinophils % 3.3 % (0.1-12.0); Hematocrit 31.9 % (37.0-47.0); Hemoglobin 10.4 g/dL (12.2-16.2); Lymphocytes # 2.1 K/mm3 (0.7-4.5); Lymphocytes % 20.7 % (10-50); Mean Corpuscular HGB Conc 32.7 g/dL (31.8-35.4); Mean Corpuscular Hemoglobin 31.3 pg (27.0-31.2); Mean Corpuscular Volume 95.6 fl (81-99); Mean Platelet Volume 8.1 fl (7.4-10.4); Monocytes # 0.5 K/mm3 (0.1-1.0); Neutrophils # 7.2 K/mm3 (1.8-7.8); Neutrophils % 70.8 % (37.0-80.0); Platelet Count 229 K/mm3 (142-424); Red Blood Count 3.34 M/mm3 (4.20-5.40); Red Cell Distribution Width 12.7 % (11.5-17.5); White Blood Count 10.1 K/mm3 (4.8-10.8)
[2019-01-09 08:11] LABS: Calcium 7.9 mg/dL (8.5-10.1)
--- NOTE | 2019-01-09 08:22 | Progress Note ---
Subjective Patient reports: feels better (slightly less confused this AM) Exam Vital signs and Labs for Last 24 Hours: Temp Pulse Resp BP Pulse Ox 98.3 F 69 15 113/61 94 L 01/09/19 07:43 01/09/19 07:43 01/09/19 07:43 01/09/19 07:43 01/09/19 07:43 Laboratory Results - last 24 hr 01/08/19 14:07: Hgb 9.6 L, Hct 29.1 L 01/09/19 07:24: WBC 10.1, RBC 3.34 L, Hgb 10.4 L, Hct 31.9 L, MCV 95.6, MCH 31.3 H, MCHC 32.7, RDW 12.7, Plt Count 229, MPV 8.1, Neut % (Auto) 70.8, Lymph % (Auto) 20.7, [place] % (Auto) 5.0, Eos % (Auto) 3.3, Baso % (Auto) 0.3, Neut # (Auto) 7.2, Lymph # (Auto) 2.1, [place] # (Auto) 0.5, Eos # (Auto) 0.3, Baso # (Auto) 0.0 01/09/19 07:24: Sodium 143, Potassium 4.0, Chloride 110 H, Carbon Dioxide 18 L, Anion Gap 19.0 H, BUN 13, Creatinine 0.60, Estimated Creat Clear 48, Estimated GFR 98, Est GFR ( Amer) 119, Glucose 76, Calcium 7.9 L I & O for Last 24 hours: Intake & Output 01/06/19 01/07/19 01/08/19 01/09/19 11:59 11:59 11:59 11:59 Intake Total 2240 / 2240 2517 / 2517 1512 / 1512 2595 / 2595 Output Total 950 / 950 1350 / 1350 575 / 575 100 / 100 Balance 1290 / 1290 1167 / 1167 937 / 937 2495 / 2495 Weight 134 lb - Constitutional no acute distress - *Routine Respiratory Exam Absent: respiratory distress - *Routine Cardiovascular Exam Present: RRR - *Routine Abdominal Exam Present: soft Comments: dressing intact. no spreading cellulitis. Progress Note: A&P (1) Diverticulitis, jejunum Status: Acute Assessment and plan: slowly improving s/p partial jejunal resection continue NG increase ambulation Current Visit: Yes (2) Adrenal mass, left Status: Acute Current Visit: Yes (3) Cholelithiasis Status: Acute Current Visit: Yes (4) Diverticulosis Status: Acute Current Visit: Yes
--- NOTE | 2019-01-09 08:29 | Progress Note ---
Internal Medicine - PN: Subj *Date: 01/09/19 *Time: 08:27 Interval history: Patient has done fairly well overnight. Has minimal abdominal pain. Please see surgical notes. Exam Vital signs and Labs for Last 24 Hours: Temp Pulse Resp BP Pulse Ox 98.3 F 69 15 113/61 94 L 01/09/19 07:43 01/09/19 07:43 01/09/19 07:43 01/09/19 07:43 01/09/19 07:43 Laboratory Results - last 24 hr 01/08/19 14:07: Hgb 9.6 L, Hct 29.1 L 01/09/19 07:24: WBC 10.1, RBC 3.34 L, Hgb 10.4 L, Hct 31.9 L, MCV 95.6, MCH 31.3 H, MCHC 32.7, RDW 12.7, Plt Count 229, MPV 8.1, Neut % (Auto) 70.8, Lymph % (Auto) 20.7, [place] % (Auto) 5.0, Eos % (Auto) 3.3, Baso % (Auto) 0.3, Neut # (Auto) 7.2, Lymph # (Auto) 2.1, [place] # (Auto) 0.5, Eos # (Auto) 0.3, Baso # (Auto) 0.0 01/09/19 07:24: Sodium 143, Potassium 4.0, Chloride 110 H, Carbon Dioxide 18 L, Anion Gap 19.0 H, BUN 13, Creatinine 0.60, Estimated Creat Clear 48, Estimated GFR 98, Est GFR ( Amer) 119, Glucose 76, Calcium 7.9 L I & O for Last 24 hours: Intake & Output 01/06/19 01/07/19 01/08/19 01/09/19 11:59 11:59 11:59 11:59 Intake Total 2240 / 2240 2517 / 2517 1512 / 1512 2595 / 2595 Output Total 950 / 950 1350 / 1350 575 / 575 100 / 100 Balance 1290 / 1290 1167 / 1167 937 / 937 2495 / 2495 Weight 134 lb Narrative: Patient responds appropriately to questions, is minimally disoriented to time, understands place and person. Anterior lung [place] are clear, some splinting pain with deep inspiration. Heart rate regular. Abdomen soft, bowel sounds noted. No edema noted. NG tube in good position. Assessment and Plan (1) Diverticulitis, jejunum Current visit: Yes Status: Acute Category: Medical Code(s): K57.12 - Diverticulitis of small intestine without perforation or abscess without bleeding (2) Adrenal mass, left Current visit: Yes Status: Acute Category: Medical Code(s): E27.9 - Disorder of adrenal gland, unspecified (3) Cholelithiasis Current visit: Yes Status: Acute Qualifiers: Cholelithiasis location: gallbladder Cholecystitis presence: without cholecystitis Biliary obstruction: without biliary obstruction Qualified Code(s): K80.20 - Calculus of gallbladder without cholecystitis without obstruction Category: Medical Code(s): K80.20 - Calculus of gallbladder without cholecystitis without obstruction (4) Diverticulosis Current visit: Yes Status: Acute Category: Medical Code(s): K57.90 - Diverticulosis of intestine, part unspecified, without perforation or abscess without bleeding - Assessment and plan all Dx Assessment and Plan for all problems:: Overall seems to be doing well. We will begin incentive spirometry today. Hold aspirin p.o. at this point given her NG tube status.
[2019-01-10 06:41] LABS: Basophils % 0.5 % (0.1-2.0); Eosinophils # 0.4 K/mm3 (0.0-0.4); Eosinophils % 4.3 % (0.1-12.0); Hematocrit 30.4 % (37.0-47.0); Hemoglobin 9.8 g/dL (12.2-16.2); Lymphocytes # 1.7 K/mm3 (0.7-4.5); Lymphocytes % 19.7 % (10-50); Mean Corpuscular HGB Conc 32.2 g/dL (31.8-35.4); Mean Corpuscular Hemoglobin 30.8 pg (27.0-31.2); Mean Corpuscular Volume 95.7 fl (81-99); Monocytes # 0.5 K/mm3 (0.1-1.0); Monocytes % 6.4 % (1.7-9.3); Neutrophils # 5.8 K/mm3 (1.8-7.8); Neutrophils % 69.1 % (37.0-80.0); Platelet Count 223 K/mm3 (142-424); Red Blood Count 3.17 M/mm3 (4.20-5.40); Red Cell Distribution Width 12.9 % (11.5-17.5); White Blood Count 8.4 K/mm3 (4.8-10.8)
[2019-01-10 06:49] LABS: Anion Gap 16.6 mEq/L (5-15); Calcium 7.8 mg/dL (8.5-10.1); Potassium 3.6 mmoL/L (3.5-5.1)
--- NOTE | 2019-01-10 07:27 | Progress Note ---
Internal Medicine - PN: Subj *Date: 01/10/19 *Time: 07:25 Interval history: Patient tells me this morning she does not feel as good as she thinks she should feel. She complains of a lot of aches and pains in the hips and lower back but not in the abdomen. NG tube remains in place. Exam Vital signs and Labs for Last 24 Hours: Temp Pulse Resp BP Pulse Ox 98.5 F 72 20 117/68 97 01/10/19 04:00 01/10/19 04:00 01/10/19 04:00 01/10/19 04:00 01/10/19 04:00 Laboratory Results - last 24 hr 01/09/19 07:24: WBC 10.1, RBC 3.34 L, Hgb 10.4 L, Hct 31.9 L, MCV 95.6, MCH 31.3 H, MCHC 32.7, RDW 12.7, Plt Count 229, MPV 8.1, Neut % (Auto) 70.8, Lymph % (Auto) 20.7, [place] % (Auto) 5.0, Eos % (Auto) 3.3, Baso % (Auto) 0.3, Neut # (Auto) 7.2, Lymph # (Auto) 2.1, [place] # (Auto) 0.5, Eos # (Auto) 0.3, Baso # (Auto) 0.0 01/09/19 07:24: Sodium 143, Potassium 4.0, Chloride 110 H, Carbon Dioxide 18 L, Anion Gap 19.0 H, BUN 13, Creatinine 0.60, Estimated Creat Clear 48, Estimated GFR 98, Est GFR ( Amer) 119, Glucose 76, Calcium 7.9 L 01/10/19 06:02: WBC 8.4, RBC 3.17 L, Hgb 9.8 L, Hct 30.4 L, MCV 95.7, MCH 30.8, MCHC 32.2, RDW 12.9, Plt Count 223, MPV 8.0, Neut % (Auto) 69.1, Lymph % (Auto) 19.7, [place] % (Auto) 6.4, Eos % (Auto) 4.3, Baso % (Auto) 0.5, Neut # (Auto) 5.8, Lymph # (Auto) 1.7, [place] # (Auto) 0.5, Eos # (Auto) 0.4, Baso # (Auto) 0.0 01/10/19 06:02: Sodium 145, Potassium 3.6, Chloride 112 H, Carbon Dioxide 20 L, Anion Gap 16.6 H, BUN 11, Creatinine 0.64, Estimated Creat Clear 52, Estimated GFR 91, Est GFR ( Amer) 110, Glucose 83, Calcium 7.8 L I & O for Last 24 hours: Intake & Output 01/07/19 01/08/19 01/09/19 01/10/19 11:59 11:59 11:59 11:59 Intake Total 2517 / 2517 1512 / 1512 2845 / 2845 1913 / 1913 Output Total 1350 / 1350 575 / 575 150 / 150 1025 / 1025 Balance 1167 / 1167 937 / 937 2695 / 2695 888 / 888 Weight 145 lb 0.001 oz Microbiology Reports for the Last 24 Hours: Microbiology 01/04/19 20:01 Blood Blood Culture - Final NO GROWTH AFTER 5 DAYS 01/04/19 20:01 Blood Blood Culture - Final NO GROWTH AFTER 5 DAYS Narrative: Patient appears comfortable. She was asleep when I entered the room and upon awakening seems rather anxious. Lungs are clear to auscultation. Heart has a regular rate and rhythm. Abdomen is soft and nontender. Assessment and Plan (1) Diverticulitis, jejunum Current visit: Yes Status: Acute Category: Medical Code(s): K57.12 - Diverticulitis of small intestine without perforation or abscess without bleeding (2) Adrenal mass, left Current visit: Yes Status: Acute Category: Medical Code(s): E27.9 - Disorder of adrenal gland, unspecified (3) Cholelithiasis Current visit: Yes Status: Acute Qualifiers: Cholelithiasis location: gallbladder Cholecystitis presence: without cholecystitis Biliary obstruction: without biliary obstruction Qualified Code(s): K80.20 - Calculus of gallbladder without cholecystitis without obstruction Category: Medical Code(s): K80.20 - Calculus of gallbladder without cholecystitis without obstruction (4) Diverticulosis Current visit: Yes Status: Acute Category: Medical Code(s): K57.90 - Diverticulosis of intestine, part unspecified, without perforation or abscess without bleeding (5) Postoperative anemia Current visit: Yes Status: Acute Category: Medical Code(s): D64.9 - Anemia, unspecified - Assessment and plan all Dx Assessment and Plan for all problems:: Add PT eval today as I think patient's body aches are coming from her inactivity postoperatively. Patient's postop anemia has improved
--- NOTE | 2019-01-10 08:27 | Progress Note ---
Subjective Patient reports: voiding w/o difficulty, no flatus (sitting on BSC) Exam Vital signs and Labs for Last 24 Hours: Temp Pulse Resp BP Pulse Ox 98.2 F 67 18 121/62 97 01/10/19 07:35 01/10/19 07:35 01/10/19 07:35 01/10/19 07:35 01/10/19 07:35 Laboratory Results - last 24 hr 01/10/19 06:02: WBC 8.4, RBC 3.17 L, Hgb 9.8 L, Hct 30.4 L, MCV 95.7, MCH 30.8, MCHC 32.2, RDW 12.9, Plt Count 223, MPV 8.0, Neut % (Auto) 69.1, Lymph % (Auto) 19.7, [place] % (Auto) 6.4, Eos % (Auto) 4.3, Baso % (Auto) 0.5, Neut # (Auto) 5.8, Lymph # (Auto) 1.7, [place] # (Auto) 0.5, Eos # (Auto) 0.4, Baso # (Auto) 0.0 01/10/19 06:02: Sodium 145, Potassium 3.6, Chloride 112 H, Carbon Dioxide 20 L, Anion Gap 16.6 H, BUN 11, Creatinine 0.64, Estimated Creat Clear 52, Estimated GFR 91, Est GFR ( Amer) 110, Glucose 83, Calcium 7.8 L I & O for Last 24 hours: Intake & Output 01/07/19 01/08/19 01/09/19 01/10/19 11:59 11:59 11:59 11:59 Intake Total 2517 / 2517 1512 / 1512 2845 / 2845 191 / 1913 Output Total 1350 / 1350 575 / 575 150 / 150 1025 / 1025 Balance 1167 / 1167 937 / 937 2695 / 2695 888 / 888 Weight 145 lb 0.001 oz Microbiology Reports for the Last 24 Hours: Microbiology 01/04/19 20:01 Blood Blood Culture - Final NO GROWTH AFTER 5 DAYS 01/04/19 20:01 Blood Blood Culture - Final NO GROWTH AFTER 5 DAYS - Constitutional no acute distress - *Routine Respiratory Exam Absent: respiratory distress - *Routine Cardiovascular Exam Present: RRR - *Routine Abdominal Exam Present: soft (dressings intact. no erythema.) Progress Note: A&P (1) Diverticulitis, jejunum Status: Acute Assessment and plan: stable s/p partial jejunal resection await return of bowel function PT/OT Current Visit: Yes (2) Adrenal mass, left Status: Acute Current Visit: Yes (3) Cholelithiasis Status: Acute Current Visit: Yes (4) Diverticulosis Status: Acute Current Visit: Yes (5) Postoperative anemia Status: Acute Current Visit: Yes
--- NOTE | 2019-01-11 07:09 | Progress Note ---
Subjective Narrative: Patient reportedly passing flatus and had some bowel movement "smear". 210cc output from NG over past 24 hours. Exam Vital signs and Labs for Last 24 Hours: Temp Pulse Resp BP Pulse Ox 97.9 F 87 18 155/86 H 97 01/11/19 04:00 01/11/19 04:00 01/11/19 04:00 01/11/19 04:00 01/11/19 04:00 Laboratory Results - last 24 hr 01/10/19 06:02: Sodium 145, Potassium 3.6, Chloride 112 H, Carbon Dioxide 20 L, Anion Gap 16.6 H, BUN 11, Creatinine 0.64, Estimated Creat Clear 52, Estimated GFR 91, Est GFR ( Amer) 110, Glucose 83, Calcium 7.8 L I & O for Last 24 hours: Intake & Output 01/08/19 01/09/19 01/10/19 01/11/19 11:59 11:59 11:59 11:59 Intake Total 1512 / 1512 2845 / 2845 2163 / 2163 2727 / 2727 Output Total 575 / 575 150 / 150 1220 / 1220 1135 / 1135 Balance 937 / 937 2695 / 2695 943 / 943 1592 / 1592 Weight 145 lb 0.001 oz 145 lb 3 oz - *Routine Abdominal Exam Present: soft Comments: Wound clean Progress Note: A&P (1) Diverticulitis, jejunum Status: Acute Current Visit: Yes (2) Adrenal mass, left Status: Acute Current Visit: Yes (3) Cholelithiasis Status: Acute Current Visit: Yes (4) Diverticulosis Status: Acute Current Visit: Yes (5) Postoperative anemia Status: Acute Current Visit: Yes Assessment and Plan for All Diagnoses:: TYSON NG. Ice chips. Patient may have chewing gum.
--- NOTE | 2019-01-11 07:20 | Progress Note ---
Internal Medicine - PN: Subj *Date: 01/11/19 *Time: 07:18 Interval history: Patient has no complaints this morning. She reports her pain is controlled and her night went well. Nursing notes report the patient had some mild complaints of pain overnight. medical library assistant confirms that patient has had some flatus but no true bowel movement. Patient denies hunger or nausea. She is hopeful of having the NG tube removed. Exam Vital signs and Labs for Last 24 Hours: Temp Pulse Resp BP Pulse Ox 97.9 F 87 18 155/86 H 97 01/11/19 04:00 01/11/19 04:00 01/11/19 04:00 01/11/19 04:00 01/11/19 04:00 I & O for Last 24 hours: Intake & Output 01/08/19 01/09/19 01/10/19 01/11/19 11:59 11:59 11:59 11:59 Intake Total 1512 / 1512 2845 / 2845 2163 / 2163 2727 / 2727 Output Total 575 / 575 150 / 150 1220 / 1220 1135 / 1135 Balance 937 / 937 2695 / 2695 943 / 943 1592 / 1592 Weight 145 lb 0.001 oz 145 lb 3 oz Narrative: Patient is sitting up in the chair and appears well. NG is in place. Lungs remain clear. Heart has a regular rate and rhythm. Abdomen is soft and bowel sounds are present this morning Assessment and Plan (1) Diverticulitis, jejunum Current visit: Yes Status: Acute Category: Medical Code(s): K57.12 - Diverticulitis of small intestine without perforation or abscess without bleeding (2) Adrenal mass, left Current visit: Yes Status: Acute Category: Medical Code(s): E27.9 - Disorder of adrenal gland, unspecified (3) Cholelithiasis Current visit: Yes Status: Acute Qualifiers: Cholelithiasis location: gallbladder Cholecystitis presence: without cholecystitis Biliary obstruction: without biliary obstruction Qualified Code(s): K80.20 - Calculus of gallbladder without cholecystitis without obstruction Category: Medical Code(s): K80.20 - Calculus of gallbladder without cholecystitis without obstruction (4) Diverticulosis Current visit: Yes Status: Acute Category: Medical Code(s): K57.90 - Diverticulosis of intestine, part unspecified, without perforation or abscess without bleeding (5) Postoperative anemia Current visit: Yes Status: Acute Category: Medical Code(s): D64.9 - Anemia, unspecified - Assessment and plan all Dx Assessment and Plan for all problems:: 1. I have explained to the patient that surgical service will make the decision regarding the NG tube 2. Patient expresses a desire to go home but I have explained to her I believe that is not in the best interest of her health and she needs to transition to home [facility] facility. Care management will begin the process as there is a chance that she could be discharged by the end of the week. 3. Increase ambulation. 4. Change fluids to D5 half-normal saline with some potassium
[2019-01-11 07:28] LABS: Basophils # 0.1 K/mm3 (0-0.2); Basophils % 0.6 % (0.1-2.0); Eosinophils # 0.5 K/mm3 (0.0-0.4); Hematocrit 32.9 % (37.0-47.0); Hemoglobin 10.6 g/dL (12.2-16.2); Lymphocytes # 1.7 K/mm3 (0.7-4.5); Lymphocytes % 20.9 % (10-50); Mean Corpuscular HGB Conc 32.1 g/dL (31.8-35.4); Mean Corpuscular Hemoglobin 30.6 pg (27.0-31.2); Mean Corpuscular Volume 95.4 fl (81-99); Mean Platelet Volume 7.9 fl (7.4-10.4); Monocytes # 0.6 K/mm3 (0.1-1.0); Monocytes % 7.5 % (1.7-9.3); Neutrophils # 5.4 K/mm3 (1.8-7.8); Neutrophils % 65.1 % (37.0-80.0); Platelet Count 227 K/mm3 (142-424); Red Blood Count 3.45 M/mm3 (4.20-5.40); Red Cell Distribution Width 12.8 % (11.5-17.5); White Blood Count 8.3 K/mm3 (4.8-10.8)
[2019-01-11 07:31] LABS: Anion Gap 14.2 mEq/L (5-15); Calcium 7.9 mg/dL (8.5-10.1); Potassium 3.2 mmoL/L (3.5-5.1)
--- NOTE | 2019-01-12 06:57 | Progress Note ---
Subjective Narrative: Patient complains of some pain. Mostly back and some abdominal pain. Exam Vital signs and Labs for Last 24 Hours: Temp Pulse Resp BP Pulse Ox 98.5 F 84 18 147/83 H 98 01/11/19 16:00 01/11/19 21:25 01/11/19 21:25 01/11/19 16:00 01/11/19 21:25 Laboratory Results - last 24 hr 01/11/19 06:32: WBC 8.3, RBC 3.45 L, Hgb 10.6 L, Hct 32.9 L, MCV 95.4, MCH 30.6, MCHC 32.1, RDW 12.8, Plt Count 227, MPV 7.9, Neut % (Auto) 65.1, Lymph % (Auto) 20.9, [place] % (Auto) 7.5, Eos % (Auto) 6.0, Baso % (Auto) 0.6, Neut # (Auto) 5.4, Lymph # (Auto) 1.7, [place] # (Auto) 0.6, Eos # (Auto) 0.5 H, Baso # (Auto) 0.1 01/11/19 06:32: Sodium 144, Potassium 3.2 L, Chloride 109 H, Carbon Dioxide 24, Anion Gap 14.2, BUN 8 D, Creatinine 0.62, Estimated Creat Clear 52, Estimated GFR 94, Est GFR ( Amer) 114, Glucose 80, Calcium 7.9 L I & O for Last 24 hours: Intake & Output 01/09/19 01/10/19 01/11/19 01/12/19 11:59 11:59 11:59 11:59 Intake Total 2845 / 2845 2163 / 2163 2977 / 2977 2188 / 2188 Output Total 150 / 150 1220 / 1220 1485 / 1485 400 / 400 Balance 2695 / 2695 943 / 943 1492 / 1492 1788 / 1788 Weight 145 lb 0.001 oz 141 lb 2 oz - *Routine Abdominal Exam Present: soft, tenderness Progress Note: A&P (1) Diverticulitis, jejunum Status: Acute Current Visit: Yes (2) Adrenal mass, left Status: Acute Current Visit: Yes (3) Cholelithiasis Status: Acute Current Visit: Yes (4) Diverticulosis Status: Acute Current Visit: Yes (5) Postoperative anemia Status: Acute Current Visit: Yes Assessment and Plan for All Diagnoses:: Continue NPO for now. If continues with abdominal pain may perform imaging.
[2019-01-12 07:10] LABS: Basophils # 0.1 K/mm3 (0-0.2); Basophils % 0.6 % (0.1-2.0); Eosinophils # 0.5 K/mm3 (0.0-0.4); Eosinophils % 5.4 % (0.1-12.0); Hematocrit 31.9 % (37.0-47.0); Hemoglobin 10.5 g/dL (12.2-16.2); Lymphocytes # 1.2 K/mm3 (0.7-4.5); Lymphocytes % 14.7 % (10-50); Mean Corpuscular HGB Conc 32.9 g/dL (31.8-35.4); Mean Corpuscular Volume 94.3 fl (81-99); Mean Platelet Volume 7.7 fl (7.4-10.4); Monocytes # 0.6 K/mm3 (0.1-1.0); Monocytes % 7.5 % (1.7-9.3); Neutrophils # 6.1 K/mm3 (1.8-7.8); Neutrophils % 71.8 % (37.0-80.0); Platelet Count 246 K/mm3 (142-424); Red Blood Count 3.39 M/mm3 (4.20-5.40); White Blood Count 8.5 K/mm3 (4.8-10.8)
[2019-01-12 07:18] LABS: Anion Gap 9.6 mEq/L (5-15); Potassium 3.6 mmoL/L (3.5-5.1)
--- NOTE | 2019-01-12 07:33 | Progress Note ---
Internal Medicine - PN: Subj *Date: 01/12/19 *Time: 07:29 Interval history: Patient complains of back pain this morning. She admits her back pain is not really new as she has long-standing back pain and has had prior surgeries. She also complains of abdominal discomfort but admits that its discomfort around the lower abdomen and she has concerns about her bladder. She has had prior bladder surgery to "lift the bladder". She describes incontinence overnight. She denies dysuria. She has not had any fevers. Exam Vital signs and Labs for Last 24 Hours: Temp Pulse Resp BP Pulse Ox 98.5 F 84 18 147/83 H 98 01/11/19 16:00 01/11/19 21:25 01/11/19 21:25 01/11/19 16:00 01/11/19 21:25 Laboratory Results - last 24 hr 01/11/19 06:32: WBC 8.3, RBC 3.45 L, Hgb 10.6 L, Hct 32.9 L, MCV 95.4, MCH 30.6, MCHC 32.1, RDW 12.8, Plt Count 227, MPV 7.9, Neut % (Auto) 65.1, Lymph % (Auto) 20.9, [place] % (Auto) 7.5, Eos % (Auto) 6.0, Baso % (Auto) 0.6, Neut # (Auto) 5.4, Lymph # (Auto) 1.7, [place] # (Auto) 0.6, Eos # (Auto) 0.5 H, Baso # (Auto) 0.1 01/11/19 06:32: Sodium 144, Potassium 3.2 L, Chloride 109 H, Carbon Dioxide 24, Anion Gap 14.2, BUN 8 D, Creatinine 0.62, Estimated Creat Clear 52, Estimated GFR 94, Est GFR ( Amer) 114, Glucose 80, Calcium 7.9 L 01/12/19 06:49: WBC 8.5, RBC 3.39 L, Hgb 10.5 L, Hct 31.9 L, MCV 94.3, MCH 31.0, MCHC 32.9, RDW 13.0, Plt Count 246, MPV 7.7, Neut % (Auto) 71.8, Lymph % (Auto) 14.7, [place] % (Auto) 7.5, Eos % (Auto) 5.4, Baso % (Auto) 0.6, Neut # (Auto) 6.1, Lymph # (Auto) 1.2, [place] # (Auto) 0.6, Eos # (Auto) 0.5 H, Baso # (Auto) 0.1 01/12/19 06:49: Sodium 144, Potassium 3.6, Chloride 109 H, Carbon Dioxide 29 D, Anion Gap 9.6, BUN 5 L D, Creatinine 0.55, Estimated Creat Clear 51, Estimated GFR 108, Est GFR ( Amer) 131, Glucose 122 H, Calcium 8.0 L I & O for Last 24 hours: Intake & Output 01/09/19 01/10/19 01/11/19 01/12/19 11:59 11:59 11:59 11:59 Intake Total 2845 / 2845 2163 / 2163 2977 / 2977 2188 / 2188 Output Total 150 / 150 1220 / 1220 1485 / 1485 400 / 400 Balance 2695 / 2695 943 / 943 1492 / 1492 1788 / 1788 Weight 145 lb 0.001 oz 141 lb 2 oz Narrative: Patient awakens easily from sleep. Lungs are clear. Heart has a regular rate and rhythm. Back exam reveals no midline or paraspinal tenderness. There is no sacral tenderness. Abdomen is soft and nontender with hypoactive bowel sounds. Abdomen is not distended. Assessment and Plan (1) Diverticulitis, jejunum Current visit: Yes Status: Acute Category: Medical Code(s): K57.12 - Diverticulitis of small intestine without perforation or abscess without bleeding (2) Adrenal mass, left Current visit: Yes Status: Acute Category: Medical Code(s): E27.9 - Disorder of adrenal gland, unspecified (3) Cholelithiasis Current visit: Yes Status: Acute Qualifiers: Cholelithiasis location: gallbladder Cholecystitis presence: without cholecystitis Biliary obstruction: without biliary obstruction Qualified Code(s): K80.20 - Calculus of gallbladder without cholecystitis without obstruction Category: Medical Code(s): K80.20 - Calculus of gallbladder without cholecystitis without obstruction (4) Diverticulosis Current visit: Yes Status: Acute Category: Medical Code(s): K57.90 - Diverticulosis of intestine, part unspecified, without perforation or abscess without bleeding (5) Postoperative anemia Current visit: Yes Status: Acute Category: Medical Code(s): D64.9 - Anemia, unspecified - Assessment and plan all Dx Assessment and Plan for all problems:: 1. Check urinalysis 2. Continue PT OT today 3. Patient ambulated quite well yesterday this may explain some of her back pain as she had essentially been bedbound for the last week. 4. Care management is [facility].
--- NOTE | 2019-01-13 07:07 | Progress Note ---
Internal Medicine - PN: Subj *Date: 01/13/19 *Time: 07:02 Interval history: Patient continues to complain of vague, poorly localized abdominal discomfort. This morning she tells me she had some left-sided pain earlier this morning when her dressing was being changed. At the time of interview however her pain is not present. Nursing staff reports patient has complained of pain that seems to migrate around the abdomen and torso. Patient is unsure of flatus and denies bowel movement. She is ambulating well. Her diet was advanced to clear liquids which she tolerated without increase in pain or nausea Exam Vital signs and Labs for Last 24 Hours: Temp Pulse Resp BP Pulse Ox 98.3 F 64 15 109/66 L 94 L 01/13/19 04:00 01/13/19 04:00 01/13/19 04:00 01/13/19 04:00 01/13/19 04:00 Laboratory Results - last 24 hr 01/12/19 06:49: WBC 8.5, RBC 3.39 L, Hgb 10.5 L, Hct 31.9 L, MCV 94.3, MCH 31.0, MCHC 32.9, RDW 13.0, Plt Count 246, MPV 7.7, Neut % (Auto) 71.8, Lymph % (Auto) 14.7, [place] % (Auto) 7.5, Eos % (Auto) 5.4, Baso % (Auto) 0.6, Neut # (Auto) 6.1, Lymph # (Auto) 1.2, [place] # (Auto) 0.6, Eos # (Auto) 0.5 H, Baso # (Auto) 0.1 01/12/19 06:49: Sodium 144, Potassium 3.6, Chloride 109 H, Carbon Dioxide 29 D, Anion Gap 9.6, BUN 5 L D, Creatinine 0.55, Estimated Creat Clear 51, Estimated GFR 108, Est GFR ( Amer) 131, Glucose 122 H, Calcium 8.0 L I & O for Last 24 hours: Intake & Output 01/10/19 01/11/19 01/12/19 01/13/19 11:59 11:59 11:59 11:59 Intake Total 2163 / 2163 2977 / 2977 2438 / 2438 2263 / 2263 Output Total 1220 / 1220 1485 / 1485 400 / 400 400 / 400 Balance 943 / 943 1492 / 1492 2037 / 2037 1863 / 1863 Weight 145 lb 0.001 oz 141 lb 2 oz 142 lb Narrative: Patient is awake and alert. She is oriented to person and place. Heart has a regular rate and rhythm. Lungs are clear. Abdomen is soft with decreased bowel sounds Assessment and Plan (1) Diverticulitis, jejunum Current visit: Yes Status: Acute Category: Medical Code(s): K57.12 - Diverticulitis of small intestine without perforation or abscess without bleeding (2) Adrenal mass, left Current visit: Yes Status: Acute Category: Medical Code(s): E27.9 - Disorder of adrenal gland, unspecified (3) Cholelithiasis Current visit: Yes Status: Acute Qualifiers: Cholelithiasis location: gallbladder Cholecystitis presence: without cholecystitis Biliary obstruction: without biliary obstruction Qualified Code(s): K80.20 - Calculus of gallbladder without cholecystitis without obstruction Category: Medical Code(s): K80.20 - Calculus of gallbladder without cholecystitis without obstruction (4) Diverticulosis Current visit: Yes Status: Acute Category: Medical Code(s): K57.90 - Diverticulosis of intestine, part unspecified, without perforation or abscess without bleeding (5) Postoperative anemia Current visit: Yes Status: Acute Category: Medical Code(s): D64.9 - Anemia, unspecified - Assessment and plan all Dx Assessment and Plan for all problems:: No change in plan of care at this time.
--- NOTE | 2019-01-13 07:52 | Progress Note ---
Subjective Narrative: Patient does have some complaints of vague abdominal discomfort. She is taking clear liquids without issue. She states that she wants more hot tea throughout the day. Exam Vital signs and Labs for Last 24 Hours: Temp Pulse Resp BP Pulse Ox 98.3 F 64 15 109/66 L 94 L 01/13/19 04:00 01/13/19 04:00 01/13/19 04:00 01/13/19 04:00 01/13/19 04:00 I & O for Last 24 hours: Intake & Output 01/10/19 01/11/19 01/12/19 01/13/19 11:59 11:59 11:59 11:59 Intake Total 2163 / 2163 2977 / 2977 2438 / 2438 2263 / 2263 Output Total 1220 / 1220 1485 / 1485 400 / 400 400 / 400 Balance 943 / 943 1492 / 1492 2038 / 2038 1863 / 1863 Weight 145 lb 0.001 oz 141 lb 2 oz 142 lb - *Routine Abdominal Exam Present: soft, normoactive bowel sounds Progress Note: A&P (1) Diverticulitis, jejunum Status: Acute Current Visit: Yes (2) Adrenal mass, left Status: Acute Current Visit: Yes (3) Cholelithiasis Status: Acute Current Visit: Yes (4) Diverticulosis Status: Acute Current Visit: Yes (5) Postoperative anemia Status: Acute Current Visit: Yes Assessment and Plan for All Diagnoses:: Advance diet
[2019-01-13 08:17] LABS: Basophils % 0.5 % (0.1-2.0); Eosinophils # 0.5 K/mm3 (0.0-0.4); Eosinophils % 6.3 % (0.1-12.0); Hematocrit 34.2 % (37.0-47.0); Hemoglobin 11.5 g/dL (12.2-16.2); Lymphocytes % 25.2 % (10-50); Mean Corpuscular HGB Conc 33.5 g/dL (31.8-35.4); Mean Corpuscular Hemoglobin 31.2 pg (27.0-31.2); Mean Platelet Volume 7.6 fl (7.4-10.4); Monocytes # 0.5 K/mm3 (0.1-1.0); Monocytes % 5.9 % (1.7-9.3); Neutrophils # 4.9 K/mm3 (1.8-7.8); Neutrophils % 62.1 % (37.0-80.0); Platelet Count 285 K/mm3 (142-424); Red Blood Count 3.67 M/mm3 (4.20-5.40); Red Cell Distribution Width 13.1 % (11.5-17.5)
[2019-01-13 08:25] LABS: Anion Gap 8.7 mEq/L (5-15); Calcium 8.3 mg/dL (8.5-10.1); Potassium 3.7 mmoL/L (3.5-5.1)
--- NOTE | 2019-01-14 06:54 | Progress Note ---
Subjective Narrative: Complains mainly of low back pain. Exam Vital signs and Labs for Last 24 Hours: Temp Pulse Resp BP Pulse Ox 98.0 F 70 18 124/72 97 01/14/19 04:00 01/14/19 04:00 01/14/19 04:00 01/14/19 04:00 01/14/19 04:00 Laboratory Results - last 24 hr 01/13/19 07:58: WBC 8.0, RBC 3.67 L, Hgb 11.5 L, Hct 34.2 L, MCV 93.0, MCH 31.2, MCHC 33.5, RDW 13.1, Plt Count 285, MPV 7.6, Neut % (Auto) 62.1, Lymph % (Auto) 25.2, [place] % (Auto) 5.9, Eos % (Auto) 6.3, Baso % (Auto) 0.5, Neut # (Auto) 4.9, Lymph # (Auto) 2.0, [place] # (Auto) 0.5, Eos # (Auto) 0.5 H, Baso # (Auto) 0.0 01/13/19 07:58: Sodium 145, Potassium 3.7, Chloride 110 H, Carbon Dioxide 30, Anion Gap 8.7, BUN 2 L D, Creatinine 0.61, Estimated Creat Clear 51, Estimated GFR 96, Est GFR ( Amer) 116, Glucose 124 H, Calcium 8.3 L I & O for Last 24 hours: Intake & Output 01/11/19 01/12/19 01/13/19 01/14/19 11:59 11:59 11:59 11:59 Intake Total 2977 / 2977 2438 / 2438 3053 / 3053 1460 / 1460 Output Total 1485 / 1485 400 / 400 600 / 600 200 / 200 Balance 1492 / 1492 2038 / 2038 2453 / 2453 1260 / 1260 Weight 141 lb 2 oz 142 lb 144 lb 1 oz - *Routine Abdominal Exam Present: soft Comments: Wound clean. Progress Note: A&P (1) Diverticulitis, jejunum Status: Acute Current Visit: Yes (2) Adrenal mass, left Status: Acute Current Visit: Yes (3) Cholelithiasis Status: Acute Current Visit: Yes (4) Diverticulosis Status: Acute Current Visit: Yes (5) Postoperative anemia Status: Acute Current Visit: Yes Assessment and Plan for All Diagnoses:: Advance diet.
--- NOTE | 2019-01-14 07:20 | Progress Note ---
Internal Medicine - PN: Subj *Date: 01/14/19 *Time: 07:18 Interval history: Patient complains of back pain in the lower back. This seems to be a recurring complaint. She has had prior lumbar surgeries. In regards to her abdomen she denies any nausea or pain with full liquid diet. She has been ambulating well. Exam Vital signs and Labs for Last 24 Hours: Temp Pulse Resp BP Pulse Ox 98.0 F 70 18 124/72 97 01/14/19 04:00 01/14/19 04:00 01/14/19 04:00 01/14/19 04:00 01/14/19 04:00 Laboratory Results - last 24 hr 01/13/19 07:58: WBC 8.0, RBC 3.67 L, Hgb 11.5 L, Hct 34.2 L, MCV 93.0, MCH 31.2, MCHC 33.5, RDW 13.1, Plt Count 285, MPV 7.6, Neut % (Auto) 62.1, Lymph % (Auto) 25.2, [place] % (Auto) 5.9, Eos % (Auto) 6.3, Baso % (Auto) 0.5, Neut # (Auto) 4.9, Lymph # (Auto) 2.0, [place] # (Auto) 0.5, Eos # (Auto) 0.5 H, Baso # (Auto) 0.0 01/13/19 07:58: Sodium 145, Potassium 3.7, Chloride 110 H, Carbon Dioxide 30, Anion Gap 8.7, BUN 2 L D, Creatinine 0.61, Estimated Creat Clear 51, Estimated GFR 96, Est GFR ( Amer) 116, Glucose 124 H, Calcium 8.3 L I & O for Last 24 hours: Intake & Output 01/11/19 01/12/19 01/13/19 01/14/19 11:59 11:59 11:59 11:59 Intake Total 2977 / 2977 2438 / 2438 3053 / 3053 1460 / 1460 Output Total 1485 / 1485 400 / 400 600 / 600 200 / 200 Balance 1492 / 1492 2038 / 2038 2453 / 2453 1260 / 1260 Weight 141 lb 2 oz 142 lb 144 lb 1 oz Narrative: She is in no distress. Lungs are clear. Heart has regular rate and rhythm. Abdomen is soft with suprapubic fullness and tenderness. Assessment and Plan (1) Diverticulitis, jejunum Current visit: Yes Status: Acute Category: Medical Code(s): K57.12 - Diverticulitis of small intestine without perforation or abscess without bleeding (2) Adrenal mass, left Current visit: Yes Status: Acute Category: Medical Code(s): E27.9 - Disorder of adrenal gland, unspecified (3) Cholelithiasis Current visit: Yes Status: Acute Qualifiers: Cholelithiasis location: gallbladder Cholecystitis presence: without cholecystitis Biliary obstruction: without biliary obstruction Qualified Code(s): K80.20 - Calculus of gallbladder without cholecystitis without obstruction Category: Medical Code(s): K80.20 - Calculus of gallbladder without cholecystitis without obstruction (4) Diverticulosis Current visit: Yes Status: Acute Category: Medical Code(s): K57.90 - Diverticulosis of intestine, part unspecified, without perforation or abscess without bleeding (5) Postoperative anemia Current visit: Yes Status: Acute Category: Medical Code(s): D64.9 - Anemia, unspecified (6) Urinary retention Current visit: Yes Status: Suspected Category: Medical Code(s): R33.9 - Retention of urine, unspecified - Assessment and plan all Dx Assessment and Plan for all problems:: 1. Advance diet 2. Bladder scan for postvoid residual. I suspect patient is retaining urine and will need catheterization
[2019-01-14 08:28] LABS: Microscopic, Urine URINE MICROSCOPIC (MICROSCOPIC)
[2019-01-14 08:32] LABS: Appearance,Urine SL CLOUDY (Clear); Bilirubin,Urine Negative (Negative); Blood, Urine Negative (Negative); Color,Urine YELLOW (Yellow); Glucose,Urine (UA) Negative (Negative); Ketones,Urine Negative (Negative); Leukocyte Esterase,Urine Negative (Negative); Protein,Urine Negative (Negative); Urobilinogen,Urine 0.2 EU/dl (0.2)
[2019-01-14 08:44] LABS: Bacteria,Urine Trace /lpf; Squamous Epithelial Cell,Urine TNTC #/hpf (0-5)
--- NOTE | 2019-01-15 07:03 | Discharge Summary ---
General - General Admission date:: 01/04/19 Discharge date: 01/15/19 HPI HPI: 73-year-old female presented to the emergency department after her neighbors contacted EMS as they believe the patient was confused. The story I get from the patient is that she was within her own home and the neighbors were mowing her lawn. Through her window it would appear that she was in a deep sleep. The neighbors woke her by knocking on her door and when the patient answered the door seemed very confused. She admits she has been experiencing a lot of confusion after sleeping. Neighbors made the decision to contact EMS. When patient arrived in the emergency department she was alert and oriented but did complain of abdominal pain. Further work-up in the ER revealed jejunal diverticulitis. Patient is recently been seen in the office over 30 pound weight loss as well as episodes of confusion. Patient admits to normal appetite without changes. Patient has an ongoing work-up to investigate her weight loss. Mental status testing performed in the office revealed normal cognition. Hospital Course Hospital Course: Patient was admitted and placed on Flagyl and Levaquin to treat her jejunal diverticulitis. On the morning of the patient was started on clear liquids which she tolerated without nausea or vomiting. However by the patient's abdominal pain had worsened. Decision was made to proceed with surgery. On January 06 patient was taken to the operating room by Dr. Mendioal who performed jejunal resection with reanastomosis. Postoperatively patient progressed as expected. NG tube remained in place for several days to avoid injury to the re-anastomosis. Once NG tube was removed diet was very cautiously advanced under the supervision of surgical service. Over the course of 4 days patient was transitioned to a bland diet. Ultimate goal would be back to a regular diet and this will be accomplished as the patient transitions to rehab facility. For patient's diverticulitis she was maintained on Levaquin and Flagyl during the entire hospitalization. She will have completed a course of antibiotics and no antibiotics are needed at discharge. Patient developed urinary retention on 2 occasions postoperatively. This is not a postoperative complication but patient admits that she has had young ongoing urinary issues for years. Patient is performed self-catheterization in the past. Patient was started on a low-dose of bethanechol at discharge. She will take bethanechol 10 mg 3 times daily. Patient was counseled that diarrhea can be a side effect of this medicine. On the day of discharge patient's lungs were clear. Her heart had a regular rate and rhythm. Her abdomen was soft and nontender with active bowel sounds. Patient is requiring surgical incision to be packed. This will need to continue at senior care facility until wound is healed by secondary intention. Because of the extensive nature of the patient's surgery and I do not believe patient will be adequately able to care for herself at discharge senior care facility was investigated. Patient was accepted [facility] where she will rehabilitate. Family has raised concerns about patient's ability to care for herself in the long-term and her stay could become permanent. Patient had a left adrenal mass on her original CT scan that is going to require follow-up noncontrasted CT scan. This can be performed as an outpatient. Mental status: Average Prognosis: Good Rehab potential: Good Objective Vital signs: Temp Pulse Resp BP Pulse Ox 98.0 F 68 18 116/58 L 94 L 01/15/19 04:00 01/15/19 04:00 01/15/19 04:00 01/15/19 04:00 01/15/19 04:00 - *Routine Abdominal Exam Present: soft Results Labs on day of discharge: Labs from last 24 hours 01/14/19 08:15 Urine Color Yellow Urine Appearance Sl cloudy Urine pH 7.0 Ur Specific [place] 1.010 Urine Protein Negative Urine Glucose (UA) Negative Urine Ketones Negative Urine Blood Negative Urine Nitrate Negative Urine Bilirubin Negative Urine Urobilinogen 0.2 Ur Leukocyte Esterase Negative Urine RBC None Urine WBC None Ur Squamous Epith Cells Tntc Urine Bacteria Trace DS: Diagnosis - Discharge Diagnosis (1) Diverticulitis, jejunum Status: Acute (2) Adrenal mass, left Status: Acute (3) Cholelithiasis Status: Acute (4) Diverticulosis Status: Acute (5) Postoperative anemia Status: Acute (6) Urinary retention Status: Suspected Discharge Plan - Patient Discharge Instructions ACTIVITY: Continue current activity DIET: advance to your usual diet Patient Instructions: Small Bowel Resection, Nicotine Addiction, DI for Small Bowel Resection, DI for Diverticulitis, How to Prevent Falls, DI for Surgical Site Infection - Follow up Plan Follow up with: Davin Mendiola MD [Staff Physician] - 1 week Disposition: [facility] Home Medications: Home Medications Medication Instructions Recorded Confirmed Type Aspirin [Aspir 81] 81 mg PO DAILY 01/04/19 01/04/19 History Multivitamin [Multi-Vitamin Plain] 1 each PO DAILY 01/04/19 01/04/19 History Docusate Sodium [Colace] 100 mg PO DAILY #30 cap 01/14/19 Rx Hydrocodone/Acetaminophen [[place] 1 each PO Q6HP PRN #60 tab 01/14/19 Rx 5-325 Tablet] Prescriptions/Medication Reconciliation: New Docusate Sodium [Colace] 100 mg PO DAILY #30 cap Bethanechol Chloride [Urecholine 10mg tablet] 10 mg PO TID #0 tablet Hydrocodone/Acetaminophen [[place] 5-325 Tablet] 1 each PO Q6HP PRN #60 tab PRN Reason: Moderate To Severe Pain Continued Multivitamin [Multi-Vitamin Plain] 1 each PO DAILY Aspirin [Aspir 81] 81 mg PO DAILY
== END 2019-01-15 10:35 | DRG 331 ==
LOC: ER 19:35 → ICU 22:28 → 2ND 01-07 03:37
PROVIDERS: ADMIT Internal Medicine Adolescent Medicine; ATTEND Family Medicine
CPT/HCPCS: 36415; 71010; 71045; 74021; 74022; 74177; 80048; 80053; 81001; 82150; 82803; 83605; 83690; 84484; 85007; 85014; 85018; 85025; 85651; 86140; 87040; 88307; 93005; 96365; 96367; 96375; 97110; 97116; 97162; 97530; 99285; J1335; J1956; J2405; Q9967

== ENCOUNTER 2019-01-27 10:18 | Emergency (ER) | payer MEDICARE, SELFPAY ==
[2019-01-27] VITALS (7 sets, daily range): BP systolic 107–153; BP diastolic 71–84; PULSE 60–69; RESP 16–20; TEMP 36.6–36.7; O2SAT 96–98; BMI 29.1
--- NOTE | 2019-01-27 10:22 | CT_ITS ---
CT abdomen pelvis w con CLINICAL INDICATION: Lower abdominal pain ITS.REASON: abdomen pain ORDERING PHYSICIAN: Dom Escamilla MD PATIENT AGE: 73 years COMPARISON: 01/04/2019 TECHNIQUE: Axial images obtained with sagittal and coronal reformats. All CT scans at the facility use one or more dose reduction, viz: automated exposure control, ma/kV adjustment per patient size (including targeted exams where dose is matched to indication, i.e. head), or iterative reconstruction technique. PROCEDURE: Oral Contrast: Gastroview IV Contrast: 75 mL's Optiray 350. FINDINGS: Minimal atelectatic changes in the left lower lobe. The liver, spleen, and right adrenal gland, kidneys, and pancreas have an unremarkable appearance. There is a 2 cm gallstone present within a mildly distended gallbladder. There is also mild dilatation of the intrahepatic biliary radicles. This was present on the previous exam. Left adrenal mass is once again noted at 2.8 cm unchanged. There has been interval small bowel surgery with partial jejunectomy. There are few small areas of increased density within the mesentery is at the surgical bed cyst with postsurgical changes. No drainable fluid collections are evident. There is mild thickening of the splenic flexure of the colon and there is a moderate amount of retained colonic feces throughout the colon. And diverticulosis noted involving the colon No intestinal obstruction or free air. There is distention of the urinary bladder. Bilateral hip prosthesis are present with significant artifact within the lower pelvis. Postsurgical changes anterior abdominal wall. IMPRESSION: 1. Status post left partial jejunectomy with postsurgical changes in the mesentery is. No abscess. No intestinal obstruction or free air. 2. Possible colitis of the splenic flexure 3. Colonic diverticulosis. No evidence of diverticulitis. 4. Distended urinary bladder. 5. Standing gallbladder with gallstones and mild biliary dilatation
--- NOTE | 2019-01-27 10:23 | HMH.EDABDPAI ---
ED Disposition Clinical Impression: Abdominal pain, History of laparotomy Disposition: Xfer SNF Condition on Discharge: Good Instructions: DI for Acute Abdomen Additional Instructions: follow up with Dr. Mendiola, schedule appt for later this week per his request. Catheter is to stay until Thursday per Dr. Pineda Time of Disposition: 14:41 - Critical Care Critical Care Time: No Attestation: On , the high probability of a clinically significant, sudden or life threatening deterioration of the following system(s) required my full and direct attention, intervention and personal management. The time I documented below is in addition to time spent performing reported procedures but includes the following listed in this critical care notation. Medical Decision Making - Medical Records Medical records reviewed: Yes: I reviewed the patient's medical records. - Nico Inquiry Pt receiving controlled substance: No Nico was queried for this patient: No Vital Signs: 01/27/19 10:19 01/27/19 10:51 01/27/19 11:49 Temperature 98.1 F Temperature Source Oral Pulse Rate [Left Radial] 67 68 64 Respiratory Rate 20 16 Blood Pressure [Right Arm] 153/79 H 134/83 107/73 L Blood Pressure Mean [Right Arm] 103 100 84 Blood Pressure Source [Right Arm] Automatic Cuff Automatic Cuff Automatic Cuff Blood Pressure Position [Right Arm] Sitting Sitting Sitting 02 Sat by Pulse Oximetry 98 96 98 Oxygen Delivery Method Room Air Room Air 01/27/19 13:02 Temperature Temperature Source Pulse Rate [Left Radial] 60 Respiratory Rate 16 Blood Pressure [Right Arm] 145/72 H Blood Pressure Mean [Right Arm] 96 Blood Pressure Source [Right Arm] Automatic Cuff Blood Pressure Position [Right Arm] Sitting 02 Sat by Pulse Oximetry 98 Oxygen Delivery Method Room Air - Lab Data Lab results reviewed: Yes: I reviewed the patient's lab results. Lab Results 01/27/19 10:35: WBC 7.5, RBC 3.80 L, Hgb 11.8 L, Hct 35.7 L, MCV 94.0, MCH 31.1, MCHC 33.1, RDW 14.1, Plt Count 215, MPV 8.2, Neut % (Auto) 71.2, Lymph % (Auto) 19.0, [place]wey % (Auto) 4.7, Eos % (Auto) 4.6, Baso % (Auto) 0.5, Neut # (Auto) 5.3, Lymph # (Auto) 1.4, [place]wey # (Auto) 0.4, Eos # (Auto) 0.4, Baso # (Auto) 0.0 01/27/19 10:35: Sodium 142, Potassium 4.0, Chloride 108 H, Carbon Dioxide 27, Anion Gap 11.0, BUN 15, Creatinine 0.77, Estimated Creat Clear 63, Estimated GFR 73, Est GFR ( Amer) 89, Glucose 88, Calcium 8.9, Total Bilirubin 0.4, AST 11 L, ALT 18, Alkaline Phosphatase 79, Total Protein 6.3 L, Albumin 2.9 L, Globulin 3.4 H, Albumin/Globulin Ratio 0.9 L, Lipase 93 01/27/19 10:40: Urine Color Yellow, Urine Appearance Sl cloudy, Urine pH 6.0, Ur Specific [place] 1.020, Urine Protein Negative, Urine Glucose (UA) Negative, Urine Ketones Negative, Urine Blood Negative, Urine Nitrate Negative, Urine Bilirubin Negative, Urine Urobilinogen 0.2, Ur Leukocyte Esterase 1+ A, Urine RBC None, Urine WBC 5-10, Ur Squamous Epith Cells 3-5, Urine Bacteria 3+ Result diagrams: 01/27/19 10:35 01/27/19 10:35 Orders (Tests/Meds): ED MEDICATIONS Discontinued Medications Generic Name Dose Route Start Last Admin Trade Name Celia PRN Reason Stop Dose Admin Diatrizoate Meglum/Diatrizoate Sod 30 ml 01/27/19 10:22 01/27/19 10:48 Gastrografin 66%-10% 30ml PO 01/27/19 10:23 30 ml ONCE ONE Administration Ioversol 75 ml 01/27/19 13:01 01/27/19 13:02 Rad-Optiray 350 100ml Vial IV 01/27/19 13:02 75 ml ONCE ONE Administration Protocol Sodium Chloride 10 ml 01/27/19 13:01 01/27/19 13:02 Rad-Saline Flush 10ml Syringe IV 01/27/19 13:02 10 ml ONCE ONE Administration ORDERS Category Date Time Status Urine Culture Stat Micro 01/27/19 10:40 Received Abdominal Pain HPI - General Chief Complaint: Abdominal Pain Stated Complaint: abd pain Time Seen by Provider: 01/27/19 10:23 Mode of Arrival: EMS Source of Information: Patient, EMS Limitations: No Limitations
--- NOTE | 2019-01-27 10:26 | ED_ITS ---
ED Disposition Clinical Impression: Abdominal pain, History of laparotomy Disposition: Xfer SNF Condition on Discharge: Good Instructions: DI for Acute Abdomen Additional Instructions: follow up with Dr. Mendiola, schedule appt for later this week per his request. Catheter is to stay until Thursday per Dr. Pineda Time of Disposition: 14:41 - Critical Care Critical Care Time: No Attestation: On , the high probability of a clinically significant, sudden or life threatening deterioration of the following system(s) required my full and direct attention, intervention and personal management. The time I documented below is in addition to time spent performing reported procedures but includes the following listed in this critical care notation. Medical Decision Making - Medical Records Medical records reviewed: Yes: I reviewed the patient's medical records. - Nico Inquiry Pt receiving controlled substance: No Nico was queried for this patient: No Vital Signs: 01/27/19 10:19 01/27/19 10:51 01/27/19 11:49 Temperature 98.1 F Temperature Source Oral Pulse Rate [Left Radial] 67 68 64 Respiratory Rate 20 16 Blood Pressure [Right Arm] 153/79 H 134/83 107/73 L Blood Pressure Mean [Right Arm] 103 100 84 Blood Pressure Source [Right Arm] Automatic Cuff Automatic Cuff Automatic Cuff Blood Pressure Position [Right Arm] Sitting Sitting Sitting 02 Sat by Pulse Oximetry 98 96 98 Oxygen Delivery Method Room Air Room Air 01/27/19 13:02 Temperature Temperature Source Pulse Rate [Left Radial] 60 Respiratory Rate 16 Blood Pressure [Right Arm] 145/72 H Blood Pressure Mean [Right Arm] 96 Blood Pressure Source [Right Arm] Automatic Cuff Blood Pressure Position [Right Arm] Sitting 02 Sat by Pulse Oximetry 98 Oxygen Delivery Method Room Air - Lab Data Lab results reviewed: Yes: I reviewed the patient's lab results. Lab Results 01/27/19 10:35: WBC 7.5, RBC 3.80 L, Hgb 11.8 L, Hct 35.7 L, MCV 94.0, MCH 31.1, MCHC 33.1, RDW 14.1, Plt Count 215, MPV 8.2, Neut % (Auto) 71.2, Lymph % (Auto) 19.0, [place] % (Auto) 4.7, Eos % (Auto) 4.6, Baso % (Auto) 0.5, Neut # (Auto) 5.3, Lymph # (Auto) 1.4, Dixon # (Auto) 0.4, Eos # (Auto) 0.4, Baso # (Auto) 0.0 01/27/19 10:35: Sodium 142, Potassium 4.0, Chloride 108 H, Carbon Dioxide 27, Anion Gap 11.0, BUN 15, Creatinine 0.77, Estimated Creat Clear 63, Estimated GFR 73, Est GFR ( Amer) 89, Glucose 88, Calcium 8.9, Total Bilirubin 0.4, AST 11 L, ALT 18, Alkaline Phosphatase 79, Total Protein 6.3 L, Albumin 2.9 L, Globulin 3.4 H, Albumin/Globulin Ratio 0.9 L, Lipase 93 01/27/19 10:40: Urine Color Yellow, Urine Appearance Sl cloudy, Urine pH 6.0, Ur Specific [place] 1.020, Urine Protein Negative, Urine Glucose (UA) Negative, Urine Ketones Negative, Urine Blood Negative, Urine Nitrate Negative, Urine Bilirubin Negative, Urine Urobilinogen 0.2, Ur Leukocyte Esterase 1+ A, Urine RBC None, Urine WBC 5-10, Ur Squamous Epith Cells 3-5, Urine Bacteria 3+ Result diagrams: 01/27/19 10:35 01/27/19 10:35 Orders (Tests/Meds): ED MEDICATIONS Discontinued Medications Generic Name Dose Route Start Last Admin Trade Name Freq PRN Reason Stop Dose Admin
[2019-01-27 10:51] LABS: Microscopic, Urine URINE MICROSCOPIC (MICROSCOPIC)
[2019-01-27 10:55] LABS: Basophils % 0.5 % (0.1-2.0); Eosinophils # 0.4 K/mm3 (0.0-0.4); Eosinophils % 4.6 % (0.1-12.0); Hematocrit 35.7 % (37.0-47.0); Hemoglobin 11.8 g/dL (12.2-16.2); Lymphocytes # 1.4 K/mm3 (0.7-4.5); Mean Corpuscular HGB Conc 33.1 g/dL (31.8-35.4); Mean Corpuscular Hemoglobin 31.1 pg (27.0-31.2); Mean Platelet Volume 8.2 fl (7.4-10.4); Monocytes # 0.4 K/mm3 (0.1-1.0); Monocytes % 4.7 % (1.7-9.3); Neutrophils # 5.3 K/mm3 (1.8-7.8); Neutrophils % 71.2 % (37.0-80.0); Platelet Count 215 K/mm3 (142-424); Red Cell Distribution Width 14.1 % (11.5-17.5); White Blood Count 7.5 K/mm3 (4.8-10.8)
[2019-01-27 10:56] LABS: Appearance,Urine SL CLOUDY (Clear); Bilirubin,Urine Negative (Negative); Blood, Urine Negative (Negative); Color,Urine YELLOW (Yellow); Glucose,Urine (UA) Negative (Negative); Ketones,Urine Negative (Negative); Leukocyte Esterase,Urine 1+ (Negative); Nitrate,Urine Negative (Negative); Protein,Urine Negative (Negative); Urobilinogen,Urine 0.2 EU/dl (0.2)
--- NOTE | 2019-01-27 10:56 | PC.NURSE ---
pt finished po contrast
[2019-01-27 11:08] LABS: Alanine Aminotransferase 18 U/L (12-78); Albumin Level 2.9 gm/dL (3.4-5.0); Albumin/Globulin Ratio 0.9 (1.1-1.8); Alkaline Phosphatase 79 U/L (46-116); Aspartate Amino Transferase 11 U/L (15-37); Bilirubin,Total 0.4 mg/dL (0.2-1.0); Blood Urea Nitrogen 15 mg/dL (7-18); Calcium 8.9 mg/dL (8.5-10.1); Carbon Dioxide 27 mmol/L (21.0-32.0); Chloride 108 mmol/L (98-107); Creatinine Clearance Estimated 63 mL/min (50-200); Creatinine,Serum 0.77 mg/dL (0.55-1.02); Estimated Glomerular Filt Rate 73 ml/min (>60); GFR (African American) 89 ML/MIN (>60); Globulin 3.4 gm/dl (1.3-3.2); Glucose 88 mg/dL (74-106); Lipase 93 u/L (73-393); Sodium 142 mmol/L (136-145); Total Protein,Serum 6.3 gm/dL (6.4-8.2)
[2019-01-27 11:22] LABS: Bacteria,Urine 3+ /lpf
--- NOTE | 2019-01-27 11:30 | PC.NURSE ---
pt's daughter called regarding pt. updated on plan of care
--- NOTE | 2019-01-27 14:10 | PC.NURSE ---
dr carlson return call
--- NOTE | 2019-01-27 14:17 | PC.NURSE ---
pt up to bathroom ambulatory pt voided 400cc urine
--- NOTE | 2019-01-27 14:31 | PC.NURSE ---
aponte placed with 600cc urine return
--- NOTE | 2019-01-27 14:49 | PC.NURSE ---
report called to [facility]i
--- NOTE | 2019-01-27 15:28 | PC.NURSE ---
nathant here to moss picker pt and take back to [facility]
== END 2019-01-27 15:31 ==
PROVIDERS: Emergency Provider Emergency Medicine; PCP Emergency Medicine
DX: R10.84 Generalized abdominal pain (principal); Z98.890 Other specified postprocedural states; J44.9 Chronic obstructive pulmonary disease, unspecified; F41.9 Anxiety disorder, unspecified; F17.210 Nicotine dependence, cigarettes, uncomplicated; Z96.641 Presence of right artificial hip joint; Z96.642 Presence of left artificial hip joint; Z88.0 Allergy status to penicillin; Z88.2 Allergy status to sulfonamides; Z88.7 Allergy status to serum and vaccine
CPT/HCPCS: 74177; 80053; 81001; 83690; 85025; 87086; 93005; 99284; Q9967

== ENCOUNTER → 2019-03-05 00:07 | Outpatient (CLI) | payer MEDICARE, SELFPAY ==
[2019-03-05 00:20] LABS: Microscopic, Urine URINE MICROSCOPIC (MICROSCOPIC)
[2019-03-05 00:28] LABS: Appearance,Urine CLOUDY (Clear); Bilirubin,Urine Negative (Negative); Blood, Urine Negative (Negative); Color,Urine YELLOW (Yellow); Glucose,Urine (UA) Negative (Negative); Ketones,Urine Negative (Negative); Leukocyte Esterase,Urine TRACE (Negative); Nitrate,Urine Negative (Negative); PH,Urine 8.5 (5.0-8.5); Protein,Urine TRACE (Negative); Specific Gravity, Urine 1.015 (1.005-1.030)
[2019-03-05 00:32] LABS: Amorphous Sediment,Urine 4+ /lpf
== END ==
PROVIDERS: Visit Provider Emergency Medicine
DX: R10.9 Unspecified abdominal pain (principal); N39.0 Urinary tract infection, site not specified
CPT/HCPCS: 81001; 87086; 87088; 87186

== ENCOUNTER → 2019-05-23 08:53 | Outpatient (CLI) | payer MEDICARE, MEDICAID, SELFPAY ==
--- NOTE | 2019-05-23 08:57 | MM_ITS ---
PROCEDURE: MM DIG SCREENING MAMM BI W/CAD Patient Age:73Y CLINICAL INDICATION: screening 73-year-old. No hormones. No new complaints. Previous total hysterectomy. Family history. Noncontributory COMPARISON: No exams were available for comparison patient does not recall were previous studies were performed. If you do have any information regarding central be glad to contact the facility in attempt to obtain prior studies TECHNIQUE: Standard CC and MLO images were obtained. R2 CAD reviewed. Additional CC view right breast FINDINGS: Numerous a dense linear benign secretory appearing calcifications bilaterally, slightly more evident on the right. No branching forms. No pleomorphic calcifications. I believe these apparent secretory calcifications can be followed with reasonable safety. I would recommended bilateral follow-up not over 1 year to better confirm stability of these benign-appearing calcifications. .. No dominant mass nor suspicious densities otherwise. Minimal fibroglandular elements throughout both breast; with minimal asymmetry . Bilateral follow-up 1 year adequate IMPRESSION: No prior studies current leak available for comparison... If any prior studies can obtained we glad to compare them Bilateral follow-up 1 year recommended, should be encouraged/emphasized to confirm stability benign-appearing secretory calcifications bilaterally most evident right breast No mass lesions BI-RAD Category: 2 Benign Finding(s) FOLLOW-UP: 1YR 1 Year Follow-up (A letter has been sent to the patient regarding results of the study.) Dictated by: Lance Sawyer MD 05/25/2019 08:09 Electronically signed by Lance Sawyer MD in [facility] 05/25/2019 08:09
== END ==
PROVIDERS: PCP Emergency Medicine; Visit Provider Emergency Medicine
DX: Z12.31 Encounter for screening mammogram for malignant neoplasm of breast (principal)
CPT/HCPCS: 77067

== ENCOUNTER → 2019-07-07 08:45 | Outpatient (CLI) | payer MEDICARE, MEDICAID, SELFPAY ==
--- NOTE | 2019-07-07 08:47 | CT_ITS ---
PROCEDURE: CT ABDOMEN WO/W CON CLINICAL HISTORY: f/u adrenal mass The follow-up left adrenal mass COMPARISON: CXR CHEST(2 VIEWS-NOT PORTABLE) from 06/13/[address] abdomen pelvis w con from 01/27/2019 TECHNIQUE: 75 mL Optiray 350 the Axial images obtained with sagittal and coronal reformats. All CT scans at the facility use one or more dose reduction, viz: automated exposure control, ma/kV adjustment per patient size (including targeted exams where dose is matched to indication, i.e. head), or iterative reconstruction technique. FINDINGS: Pre and post enhanced images are performed. There is a 2.9 cm left adrenal mass. This measures -10 Hounsfield units on the unenhanced images. Immediate post enhanced density is 46 Hounsfield units. 15 minutes washout density is 5 Hounsfield units. This is consistent with an adenoma. This is not significantly changed. There is a small right adrenal nodule measuring near water density at 1 cm and is not significantly changed also consistent with an adenoma the There are mild atelectatic changes in left lung base. Coronary artery calcifications are present. There is a small hiatal hernia. There is a prominent gallstone. The spleen, pancreas, and kidneys have an unremarkable appearance.. There is a large duodenal diverticulum. There are post surgical changes of the small bowel in the left lower quadrant with dilatation of the anastomotic segments. No upstream dilatation evident. No intestinal obstruction or free air. There are small parapelvic renal cyst on both sides evident on the delayed images. There is mild dilatation of the infrarenal abdominal aorta measuring up to 2.5 cm with atherosclerotic changes of the aortoiliac vessels. There are postsurgical changes of the lumbar spine at the L5 level. IMPRESSION: 1. No change in the left adrenal mass with imaging characteristics consistent with an adenoma. Small right adrenal adenoma also noted unchanged. 2. Cholelithiasis. 3. Other nonacute findings as described above. The Dictated by: Christophe Truong MD 07/08/2019 12:45 Electronically signed by Christophe Truong MD in [place] 07/08/2019 12:45
[2019-07-07 09:22] LABS: Blood Urea Nitrogen 22 mg/dL (7-18); Creatinine,Serum 0.93 mg/dL (0.55-1.02); Estimated Glomerular Filt Rate 59 ml/min (>60); GFR (African American) 72 ML/MIN (>60)
== END ==
PROVIDERS: PCP Emergency Medicine; Visit Provider Emergency Medicine
DX: E27.9 Disorder of adrenal gland, unspecified (principal); D44.12 Neoplasm of uncertain behavior of left adrenal gland
CPT/HCPCS: 36415; 74170; 82565; 84520; Q9967

== ENCOUNTER → 2019-10-07 10:47 | Outpatient (CLI) | payer MEDICARE, MEDICAID, SELFPAY | PROVIDERS: Visit Provider Emergency Medicine | DX: Z20.828 Contact with and (suspected) exposure to other viral communicable diseases (principal) | CPT/HCPCS: 87275; 87276 ==

== ENCOUNTER → 2019-12-12 10:35 | Outpatient (CLI) | payer MEDICARE, MEDICAID, SELFPAY ==
--- NOTE | 2019-12-12 10:42 | US_ITS ---
PROCEDURE: US THYROID CLINICAL INDICATION: LT THYROID NODULE COMPARISON: THY US THYROID from 03/23/2013 FINDINGS: Right lobe is 3.2 x 1 2 x 1 1 cm. There is a mixed cystic nodule at in region. The left lobe is 3 x 1 x 0.4 cm. Mixed nodules present in the upper pole at 7 by mm. There is a solid nodule the lower pole at 18 x 16 mm not significantly changed. Nodule is fairly well-circumscribed. IMPRESSION: Stable bilateral appearance of the thyroid gland. Dominant nodule on the left is not appear significantly changed Dictated by: Christophe Truong MD 12/13/2019 18:24 Electronically signed by Christophe Truong MD in [facility] 12/13/2019 18:24
== END ==
PROVIDERS: PCP Emergency Medicine; Visit Provider Emergency Medicine
DX: E04.1 Nontoxic single thyroid nodule (principal)
CPT/HCPCS: 76536

== ENCOUNTER → 2019-12-13 08:56 | Outpatient (CLI) | payer MEDICARE, MEDICAID, SELFPAY ==
--- NOTE | 2019-12-13 09:01 | MR_ITS ---
PROCEDURE: MR LUMBAR SPINE WO CON CLINICAL INDICATION: LOW BACK PAIN Low back pain with bilateral leg pain with numbness and tingling COMPARISON: [facility] [place] MRI-L-SPINE W/WO from 01/02/2014 TECHNIQUE: Standard multiplanar multiecho sequences are performed without contrast. 3-D MIP and myelographic images are also rendered and reviewed FINDINGS: There is normal alignment. Spinal cord ends at the T11-T12 level. There is mild lumbar scoliosis convex left T10-T11: Degenerative disc disease with small right paracentral and foraminal disc protrusion with mild right lateral recess narrowing. T11-T12: Unremarkable. T12-L1: Degenerate disc disease with bulging disc with mild facet hypertrophic change with mild bilateral lateral recess narrowing. L1-L2: Degenerate disc disease with mild bulging disc along with facet and ligamentum hypertrophy and mild bilateral lateral recess narrowing right greater than left. There is small central disc protrusion slightly eccentric toward the left. L2-L3: Degenerate disc disease with bulging disc along with facet and ligamentum hypertrophy causing moderate to severe bilateral lateral recess and foraminal narrowing with canal stenosis. The facet hypertrophic changes worse compared to the previous exam with worsening bilateral lateral recess narrowing and narrowing of the canal L3-L4: Degenerate disc disease with bulging disc along with moderate to severe facet and ligamentum hypertrophy with moderate to severe bilateral lateral recess and foraminal narrowing along with canal stenosis which is worse when compared to the previous exam. L4-5: Degenerate disc disease with bulging disc with moderate to severe facet and ligamentum hypertrophy along with moderate to severe bilateral lateral recess and foraminal narrowing. There is transverse narrowing of the canal at 6 mm slightly worse compared to the previous exam. There is a small left foraminal disc protrusion with minimal inferior extrusion which is better detected on the sagittal images contributing to moderate to severe foraminal narrowing L5-S1: Degenerate disc disease along with facet and ligamentum hypertrophy with prior laminectomy with moderate bilateral foraminal narrowing. No extruded herniated disc evident. IMPRESSION: Multilevel lumbar spondylosis with disc disease with bulging disc and facet and ligamentum hypertrophy with levels of canal stenosis and moderate to severe bilateral lateral recess and foraminal narrowing. These findings are somewhat progressed compared to the previous exam. Please see above for detailed description at each level. Dictated by: Christophe Truong MD 12/14/2019 13:36 Electronically signed by Christophe Truong MD in [place] 12/14/2019 13:36
== END ==
PROVIDERS: PCP Emergency Medicine; Visit Provider Emergency Medicine
DX: M54.5 Low back pain (principal)
CPT/HCPCS: 72148; 76376

== ENCOUNTER → 2019-12-22 10:43 | Outpatient (CLI) | payer MEDICARE, MEDICAID, SELFPAY ==
--- NOTE | 2019-12-22 10:52 | CA_ITS ---
APPROVED REPORT EXAM: Comprehensive 2D, Doppler, and color-flow Echocardiogram Dimension [employer] Supervisor: Tiera Lott RVT Ht: 5 ft 2 in Wt: 170lbs BSA: 1.78 BP: 146/78 mmHg Indications: Chest Pain, Congestive Heart Failure,Smoker TDS-PT KEPT MOVING DURING EXAM, PT ON BACK 2D Dimensions LVOT 1.52 cm (M/F) 1.5-2.5 M-Mode Dimensions RVDd 2.25 cm (0.9-2.6) LVDd 4.26 cm (3.5-5.7) LVDs 3.00 cm (3.5-5.7) IVSd 1.18 cm (0.6-1.1) PWd 0.68 cm (0.6-1.1) EF (Teich) 56.90% FS 29.60% EDV (Teich) 81.30 mL ESV (Teich) 35.00 mL LV Diastology E/A Ratio 0.66 Mitral Valve MV A Velocity 61.00 (40-130 cm/s) Left Ventricle Left atrium is mildly enlarged, left ventricle is normal size, mild concentric left ventricular hypertrophy, visually estimated ejection fraction 55% with no regional wall motion abnormality, grade 1 diastolic dysfunction seen without tissue Doppler evidence of raise left atrial pressure. Right Ventricle Right atrium and right ventricular normal size and contractility. Aortic Valve Aortic valve is thickened and calcified leaflet chordae display good mobility, there is no aortic stenosis, there is trace aortic insufficiency. Mitral Valve Mitral valve leaflets are minimally thickened, there is no mitral stenosis, there is mild mitral regurgitation. Tricuspid Valve Tricuspid valve is grossly normal, there is mild tricuspid regurgitation tricuspid regurgitation jet velocity is inadequate for calculation of the right ventricular systolic pressure. Pulmonic Valve Pulmonic valve is poorly visualized. Great Vessels Aortic root is normal size. Pericardium No significant pericardial effusion noted. Conclusion 1. Mildly enlarged left atrium, normal left ventricular size, mild concentric left ventricular hypertrophy, visually estimated ejection fraction 55% with no regional wall motion abnormality, grade 1 diastolic dysfunction seen without tissue Doppler evidence of raise left atrial pressure. 2. Thickened and calcified aortic valve without aortic stenosis, there is trace aortic insufficiency. 3. Mild mitral and tricuspid regurgitation. 4. No significant pericardial effusion noted. Electronically signed by : Bart Gonzalez, 12/22/2019 12:07:21
== END ==
PROVIDERS: PCP Emergency Medicine; Visit Provider Emergency Medicine
DX: R07.9 Chest pain, unspecified (principal)
CPT/HCPCS: 93306

== ENCOUNTER → 2019-12-23 19:15 | Outpatient (CLI) | payer MEDICARE, MEDICAID, SELFPAY ==
[2019-12-23 19:44] LABS: Creatine Kinase 381 U/L (30-135)
[2019-12-23 19:58] LABS: Troponin I < 0.01 ng/ml (0.00-0.034)
== END ==
PROVIDERS: Visit Provider Emergency Medicine
DX: R07.9 Chest pain, unspecified (principal)
CPT/HCPCS: 82550; 84484

== ENCOUNTER → 2019-12-26 12:50 | Outpatient (POV) | payer MEDICARE, MEDICAID, SELFPAY ==
--- NOTE | 2019-12-26 14:13 | HMH.PMCON ---
Assessment and Plan (1) Spinal stenosis, lumbar region with neurogenic claudication Current visit: Yes Status: Chronic Category: Medical Code(s): M48.062 - Spinal stenosis, lumbar region with neurogenic claudication (2) Degenerative disc disease Current visit: Yes Status: Chronic Qualifiers: Spinal region: lumbar Qualified Code(s): M51.36 - Other intervertebral disc degeneration, lumbar region Category: Medical - Assessment and plan all Dx Assessment and Plan for all problems:: We will plan L4-L5 lumbar epidural steroid injection and epidurogram. This will help determine if she is a mild candidate. I explained the procedures with the patient she understands this. I also provided education in regards to it. Patient's been instructed to call the office if she has any issues prior to her next appointment. We specifically discussed risk factors for Covid-19 including age, heart or lung disease, diabetes, immunosuppression and travel. We also discussed that NSAIDs may worsen Covid-19 infection symptoms and that they should not be used to treat Covid-19 symptoms. Patient was also informed that corticosteroids in any form oral or injectable will decrease immune response and may increase risk of Covid-[address] Azevedo has reviewed this patient's chart and this note and agrees with plan of care. Patient has been instructed to call the office if they have any issues prior to the next appointment. HPI - Data of Consult Consult date: 12/26/19 Requesting Physician: Jania Diaz APRN Primary Care Provider: Dom Pineda MD - Consult Narrative Reason for consult: Back pain and left leg pain History of present illness: Ms. Bae is a 74 year old female who presents today for consultation in regard to her low back and left leg pain. Patient has had pain for quite some time however recently she is fallen which is exacerbated her pain. Patient states that she has difficulty with standing and walking and finds herself leaning forward. She has an MRI showing degenerative disc disease, bulging disc and ligamentum flavum hypertrophy. Patient and I discussed an epidural injection we also briefly discussed the potential mild procedure. Patient rates her pain today a 9 out of 10. Patient states that activity all activity increases pain while nothing truly decreases it. She has numbness and tingling mostly in her left leg however it is bilateral at some points. CC: Jania Diaz APRN [facility] History I have reviewed the patient's past medical history: Yes Medical History: Reports:: Aneurysm (ABDOMINAL), Anxiety, Chronic Obstructive Pulmonary Disease (COPD), Hypertension, Urinary Tract Infection Denies:: Cancer, Diabetes Mellitus Type 1, Diabetes Mellitus Type 2, MRSA, Seizures *Have you ever received a pneumonia vaccine?: Yes *Have you received a flu vaccine this season?: Yes Other Medical History: Reports: Anemia, Arthritis, Sinus Problems, Other Laterality Cases: Bilateral: ACL Repair, Total Hip Replacement Other Surgeries: Yes: Appendectomy, Colonoscopy, Colon Resection, Hysterectomy-Total, Other Amputation: No Fractures: No - *Social History Smoking Status: Never smoker Tobacco Type: cigarettes # Packs/Day (cigarettes): 1 Alcohol Intake: never Alcohol Intake Frequency:: other Substance Use Type: denies use *Occupational Status:: other Housing: house Household Members: other *Travel in the last 8 weeks: None - Psychiatric History Pschychiatric History:: Reports:: Anxiety Family Hx:: Cancer, Diabetes, Hypertension, Tuberculosis Review of Systems - Review of Systems ROS General: no recent weight change, no fever, no sleep disturbances Respiratory: no cough, no shortness of air, no recurring pulmonary infections Cardiovascular/Peripheral Vascular: No chest pain, No palpitations, no edema, no shortness of breath. Gastrointestinal: no new onset incontinence, normal bowel moveme
== END ==
PROVIDERS: PCP Emergency Medicine; Visit Provider Clinical Nurse Specialist Family Health
DX: M48.062 Spinal stenosis, lumbar region with neurogenic claudication (principal); M51.36 Other intervertebral disc degeneration, lumbar region
CPT/HCPCS: 99202

== ENCOUNTER → 2020-01-06 08:17 | Day surgery (SDC) | payer MEDICARE, MEDICAID, SELFPAY ==
[2020-01-06 08:30] LABS: Adenovirus,PCR Not Detected (NotDetected); Bordetella Pertussis Not Detected (NotDetected); Chlamydophila Pneumoniae, PCR Not Detected (NotDetected); Coronavirus 19, PCR Not Detected (NotDetected); Coronavirus 229E Not Detected (NotDetected); Coronavirus NL63 Not Detected (NotDetected); Coronavirus OC43 Not Detected (NotDetected); Coronovirus HKU1,PCR Not Detected (NotDetected); Human Metapneumovirus Not Detected (NotDetected); Influenza A, PCR Not Detected (NotDetected); Influenza AH1, 2009 Not Detected (NotDetected); Influenza AH1, PCR Not Detected (NotDetected); Influenza AH3,PCR Not Detected (NotDetected); Influenza B, PCR Not Detected (NotDetected); Mycoplasma Pneumoniae, PCR Not Detected (NotDected); Parainfluenza 1, PCR Not Detected (NotDetected); Parainfluenza 2, PCR Not Detected (NotDetected); Parainfluenza 3, PCR Not Detected (NotDetected); Parainfluenza 4, PCR Not Detected (NotDetected); Respiratory Syncytial Virus Not Detected (NotDetected); Rhinovirus/Enterovirus Not Detected (NotDetected)
[2020-01-06 08:59] LABS: Basophils # 0.1 K/mm3 (0-0.2); Basophils % 1.4 % (0.1-2.0); Eosinophils # 0.3 K/mm3 (0.0-0.4); Eosinophils % 3.4 % (0.1-12.0); Hemoglobin 12.8 g/dL (12.2-16.2); Lymphocytes # 1.7 K/mm3 (0.7-4.5); Lymphocytes % 17.8 % (10-50); Mean Corpuscular HGB Conc 30.5 g/dL (31.8-35.4); Mean Corpuscular Hemoglobin 30.6 pg (27.0-31.2); Mean Corpuscular Volume 100.5 fl (81-99); Monocytes # 0.4 K/mm3 (0.1-1.0); Neutrophils # 7.1 K/mm3 (1.8-7.8); Neutrophils % 73.5 % (37.0-80.0); Platelet Count 233 K/mm3 (142-424); Red Blood Count 4.18 M/mm3 (4.20-5.40); Red Cell Distribution Width 13.4 % (11.5-17.5); White Blood Count 9.7 K/mm3 (4.8-10.8)
[2020-01-06 09:47] LABS: Erythrocyte Sedimentation Rate 20 mm/hr (0-30)
[2020-01-06 10:46] LABS: Chloride 104 mmol/L (98-107); Potassium 4.1 mmoL/L (3.5-5.1); Sodium 141 mmol/L (136-145)
[2020-01-06 10:48] LABS: Blood Urea Nitrogen 16 mg/dl (7-17); Estimated Glomerular Filt Rate 82 ml/min (>60); GFR (African American) 99 ML/MIN (>60)
[2020-01-06 10:49] LABS: Alanine Aminotransferase 20 U/L (12-78); Albumin Level 4.1 g/dl (3.5-5.0); Alkaline Phosphatase 88 U/L (38-126); Anion Gap 12.1 mEq/L (5-15); Aspartate Amino Transferase 27 U/L (14-36); Bilirubin,Indirect 0.3 mg/dL (0.0-0.9); Bilirubin,Total 0.3 mg/dl (0.2-1.3); Bilirubin,Unconjugated 0.5 mg/dL (0.0-1.1); Calcium 9.7 mg/dl (8.4-10.2); Carbon Dioxide 29 mmol/L (22.0-30.0); Chol/HDL Ratio 2.4 (1-3.5); Cholesterol 192 mg/dl (140-200); Creatine Kinase 173 U/L (30-135); Glucose 151 mg/dl (74-100); HDL Cholesterol 79 mg/dl (40-60); Total Protein,Serum 6.5 g/dl (6.3-8.2); Triglycerides 103 mg/dl (30-150); VLDL Cholesterol 21 mg/dL (0-40)
[2020-01-06 11:01] LABS: Direct LDL Cholesterol 114.84 mg/dL (100-129)
== END ==
PROVIDERS: Urology; PCP Emergency Medicine; Visit Provider Anesthesiology
DX: G57.90 Unspecified mononeuropathy of unspecified lower limb (principal); I35.1 Nonrheumatic aortic (valve) insufficiency; I51.89 Other ill-defined heart diseases; I71.4 Abdominal aortic aneurysm, without rupture; I73.9 Peripheral vascular disease, unspecified; I77.9 Disorder of arteries and arterioles, unspecified; L81.9 Disorder of pigmentation, unspecified; M79.606 Pain in leg, unspecified; R06.00 Dyspnea, unspecified; R07.9 Chest pain, unspecified; R26.2 Difficulty in walking, not elsewhere classified; R94.31 Abnormal electrocardiogram [ECG] [EKG]; Z72.0 Tobacco use
CPT/HCPCS: 36415; 80048; 80061; 80076; 82550; 85025; 85651; 87581; 87633; 87798

== ENCOUNTER → 2020-01-09 06:41 | Outpatient (CLI) | payer MEDICARE, MEDICAID, SELFPAY ==
--- NOTE | 2020-01-09 06:43 | CA_ITS ---
APPROVED REPORT Exam: Pharmacologic Technologist: Ele Cheung Ht: 5 ft 3 in Wt: 160 lbs BSA: 1.76 m2 HR: 79 bpm BP: 168/95 mmHg Indications: Chest pain, Shortness of Breath, Claudication Medical History Medications: Aspirin,,,,, Hydrocodone,,,,, Gabapentin,,,,, Citalopram,,,,, DONEPEZIL,,,,, DOcusate,,,,, MeMANTINE,,,,, Multivitamin,,,,, BeTHANECHOL,,,,, Stress Test Details Test: LEXISCAN HR Resting HR: 72 bpm Max Heart Rate (APMHR): 146 bpm Max HR Achieved: 111 bpm Target HR (85% APMHR): 124 bpm % of APMHR: 76 Recovery HR: 104 bpm BP Resting BP: 168.0/95.0 mmHg Max BP: 168.0/95.0 mmHg Recovery BP: 162.0/89.0 mmHg ECG Clinical Exercise duration: 04:00 min Highest Stage Achieved: Stress ECG Conclusion Resting ECG: Sinus rhythm Lexiscan portion complted. Patient complained of nausea and stomach cramps during peak infusion. Symptoms: Nausea and stomach cramping during peak infusion. Resolved in recovery. No chest pain. No shortness of breath. Arrhythmias/Ectopy: Occasional PAC ST-T Changes: Less than 1.[address] depression. Conclusion: Images to follow Test Summary REST . . . . . . . Resting REST 02:26 . . 72 . 168/ 95 . . Stage 1 . . . . . . . Myoview Injected Stage 1 01:00 . . 90 . . . . Stage 2 01:00 . . 101 . . . . Stage 3 01:00 . . 102 . 136/ 80 . . Stage 4 01:00 . . 111 . 156/ 90 . Stop exercise at 04:00 RECOVERY 01:00 . . 100 . . . . RECOVERY 02:00 . . 104 . 162/ 98 . . RECOVERY 03:00 . . 104 . 162/ 98 . . RECOVERY 04:00 . . 101 . 144/107 . . RECOVERY 05:00 . . 94 . 144/107 . . RECOVERY 05:23 . . 103 . 162/ 89 . . Electronically signed by : Bart Gonzalez, 01/09/2020 20:12:00
--- NOTE | 2020-01-09 06:43 | NM_ITS ---
APPROVED REPORT Exam: Nuclear Stress Test Indication: Chest pain, SOB, Tobacco use, Family history Patient Location: Outpatient Stress Tech: Ele Cheung NM Tech:Ya Pal, ARRT, RT (R)(N) Ht: 5 ft 3 in Wt: 160 lbs Bra Size: 34D HR: 79 bpm BP: 168/95 mmHg BSA: 1.76 m2 BMI: 28.3 History: Chest pain, SOB, Tobacco use, Family history Procedure: Patient received a 0.4 mg of intravenous Lexiscan, resting heart rate 79 bpm, resting blood pressure 168/95 mmHg, with Lexiscan maximum heart rate achived was 109 bpm which is Less than 85 % of the maximum predicted heart rate and blood pressure was 156/90 mmHg. With Lexiscan, patient denied any complaint of chest pain. Electrocardiogram Resting electrocardiogram shows sinus rhythm, with Lexiscan there is less than 1.[address] segment depression noted from the baseline EKG. The EKG portion of the Lexiscan Myoview is nondiagnostic. Cardiac Stress and Resting SPECT Images: Cardiac Stress and Resting SPECT images were obtained using technetium 99m Myoview 32.4 mCi stress and 10.13 mCi at rest. Gated SPECT with analysis of segmental wall motion and calculation of the ejection fraction. Stress and resting SPECT images show decrease tracer activity in the anterior, septal septal wall and apical wall. Which improves on the resting images suggestive of reversible ischemia, computer derived ejection fraction is over 65% with no regional wall motion abnormality, right ventricle is normal size and contractility. Conclusion: 1. The EKG portion of the Lexiscan Myoview is nondiagnostic. 2. Scintigraphic evidence of mild reversible ischemia involving the anterior, septal and apical wall. Computer derived ejection fraction is over 65% with no regional wall motion abnormality, right ventricle is normal size and contractility. 3. Abnormal Lexiscan Myoview study, the study is technically limited due to patient's body habitus. Electronically signed by : Bart Gonzalez, 01/09/2020 20:15:10
--- NOTE | 2020-01-09 09:10 | HMH.ITSHM ---
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 []HYDROCODONE ROBAFEN ASA BETHANECHOL CITALOPRAM DOCUSATE DONEPEZIL GABAPENTIN MEMANTINE
== END ==
PROVIDERS: PCP Emergency Medicine; Visit Provider Urology
DX: G57.90 Unspecified mononeuropathy of unspecified lower limb (principal); I35.1 Nonrheumatic aortic (valve) insufficiency; I71.4 Abdominal aortic aneurysm, without rupture; I73.9 Peripheral vascular disease, unspecified; I77.9 Disorder of arteries and arterioles, unspecified; L81.9 Disorder of pigmentation, unspecified; M79.606 Pain in leg, unspecified; R06.00 Dyspnea, unspecified; R07.9 Chest pain, unspecified; R26.2 Difficulty in walking, not elsewhere classified; R94.31 Abnormal electrocardiogram [ECG] [EKG]; Z72.0 Tobacco use
CPT/HCPCS: 78452; 93017; 93923; A9502; J2785

== ENCOUNTER 2020-01-24 08:40 | Day surgery (SDC) | payer MEDICARE, MEDICAID, SELFPAY ==
[2020-01-24] VITALS (14 sets, daily range): BP systolic 122–172; BP diastolic 68–103; PULSE 51–68; RESP 16–18; TEMP 36.7; O2SAT 92–99; BMI 28.3
--- NOTE | 2020-01-24 | IR_ITS ---
APPROVED REPORT Patient Location: Outpatient PROCEDURES Selective coronary angiogram Drug-eluting stent deployment to the proximal dominant circumflex artery INDICATION Coronary artery disease, Angina pectoris, Abnormal Myoview Informed consent was obtained prior to the procedure. COMPLICATIONS NONE Estimated Blood Loss: LESS THAN 10 ML TECHNIQUE One percent lidocaine used to anesthetize the right anterior aspect of the wrist. The right radial artery was accessed via the Seldinger technique. A 6 Cuban sheath was placed in the right radial artery. 2.5 mg of verapamil, 800 mcg of nitroglycerin, 1mg Lidocaine and 5000 U Heparin were given through the arterial sheath. The trap catheter was also used to perform left heart catheterization, left ventriculogram and selective coronary angiogram. At the end the diagnostic angiogram therapeutic heparin was administered and a JL4 guide catheter was used to intubate the left main artery. A BMW wire was placed distally in the circumflex artery and a 3.5 x 12 mm resolute shane stent was deployed at 20 amanda reducing the severe stenosis to 0%. MAXWELL-3 flow was present before and after the procedure. At the end of the procedure the apparatus was removed the sheath was removed good hemostasis was achieved using Perclose device patient was transferred to the postop holding area in stable condition ANGIOGRAPHIC RESULTS The left anterior descending artery Originates in the left coronary cusp with its own separate ostium. The vessel has ostial 20% stenosis mid vessel 10 to 20% stenoses The circumflex artery Originates in the left coronary cusp with its own separate ostium and has very proximal eccentric 30% stenosis with a focal concentric 70% stenosis immediately proximal to 2 large first and second obtuse marginal arteries. The 2 obtuse marginal arteries have mild 10% luminal irregularities The right coronary artery Is a small nondominant vessel and normal The MCCARTNEY ventriculogram reveals Not obtained The left ventricular end-diastolic pressure Not measured IMPRESSION Severe single-vessel coronary disease as described above Successful stenting of the functionally proximal dominant circumflex artery reducing severe stenosis to 0% with one drug-eluting stent PLAN 1. Brilinta and aspirin 2. LDL less than 55 3. Cardiac rehabilitation 4. Avoidance of tobacco products 5. Risk factor modification Electronically signed by : Chip Lord, 01/24/2020 12:19:23
[2020-01-24 09:21] LABS: Basophils # 0.3 K/mm3 (0-0.2); Basophils % 2.9 % (0.1-2.0); Eosinophils # 0.5 K/mm3 (0.0-0.4); Eosinophils % 4.1 % (0.1-12.0); Hematocrit 42.1 % (37.0-47.0); Hemoglobin 13.9 g/dL (12.2-16.2); Lymphocytes # 2.5 K/mm3 (0.7-4.5); Lymphocytes % 22.2 % (10-50); Mean Corpuscular HGB Conc 33.1 g/dL (31.8-35.4); Mean Corpuscular Hemoglobin 32.2 pg (27.0-31.2); Mean Corpuscular Volume 97.2 fl (81-99); Mean Platelet Volume 8.5 fl (7.4-10.4); Monocytes # 0.6 K/mm3 (0.1-1.0); Monocytes % 4.9 % (1.7-9.3); Neutrophils # 7.4 K/mm3 (1.8-7.8); Neutrophils % 65.9 % (37.0-80.0); Platelet Count 252 K/mm3 (142-424); Red Blood Count 4.33 M/mm3 (4.20-5.40); Red Cell Distribution Width 13.4 % (11.5-17.5); White Blood Count 11.3 K/mm3 (4.8-10.8)
[2020-01-24 09:24] LABS: Chloride 106 mmol/L (98-107); Potassium 4.6 mmoL/L (3.5-5.1); Sodium 140 mmol/L (136-145)
[2020-01-24 09:27] LABS: Anion Gap 10.6 mEq/L (5-15); Carbon Dioxide 28 mmol/L (22.0-30.0)
[2020-01-24 09:28] LABS: Calcium 10.2 mg/dl (8.4-10.2); Glucose 108 mg/dl (74-100)
[2020-01-24 09:32] LABS: Blood Urea Nitrogen 21 mg/dl (7-17); Creatinine Clearance Estimated 57 mL/min (50-200); Estimated Glomerular Filt Rate 61 ml/min (>60); GFR (African American) 74 ML/MIN (>60)
[2020-01-24 13:36] LABS: CATHL Activated Clotting Time 287 SEC (74-125)
--- NOTE | 2020-01-24 15:48 | HMH.PHACLD ---
Mary Bae has received discharge medication counseling on the following medications: PATIENT IS [facility] PATIENT. DOES NOT TAKE CARE OF OWN MEDICATIONS. PATIENT ALREADY TAKING ASPIRIN 81 MG DAILY AND METOPROLOL SUCCINATE 25 MG DAILY. MD STARTING BRILINTA 90 MG BID, RAMIPRIL 5 MG DAILY, AND ATORVASTATIN 40 MG HS.
== END 2020-01-24 15:29 | disposition home health service (06) ==
LOC: CATHLAB 08:43
PROVIDERS: PCP Emergency Medicine; Visit Provider Internal Medicine
DX: R94.39 Abnormal result of other cardiovascular function study (principal); I25.118 Atherosclerotic heart disease of native coronary artery with other forms of angina pectoris; I11.0 Hypertensive heart disease with heart failure; I50.30 Unspecified diastolic (congestive) heart failure; I35.1 Nonrheumatic aortic (valve) insufficiency; I71.4 Abdominal aortic aneurysm, without rupture; Z72.0 Tobacco use; I70.203 Unspecified atherosclerosis of native arteries of extremities, bilateral legs; Z79.82 Long term (current) use of aspirin; Z79.01 Long term (current) use of anticoagulants; Z79.899 Other long term (current) drug therapy; Z88.0 Allergy status to penicillin; Z88.2 Allergy status to sulfonamides; Z88.7 Allergy status to serum and vaccine
CPT/HCPCS: 80048; 85025; 85347; 92928; 93458; 99152; C1725; C1769; C1876; C9600; J1644; J2405; Q9967

== ENCOUNTER 2020-04-05 09:31 | Emergency (ER) | payer MEDICARE, MEDICAID, SELFPAY ==
[2020-04-05 09:22] VITALS: BP 114/70; PULSE 64; RESP 18; O2SAT 94; BMI 29.2
[2020-04-05 09:26] VITALS: BMI 29.2
--- NOTE | 2020-04-05 09:27 | CT_ITS ---
PROCEDURE: CT CERVICAL SPINE WO CON CLINICAL INDICATION: fall Neck injury with pain, contusion/abrasion or hematoma, cervical sprain/strain the COMPARISON: CT CT CERVICAL SPINE WO CON from 12/07/2019 TECHNIQUE: Axial images obtained with sagittal and coronal reformats. All CT scans at the facility use one or more dose reduction, viz: automated exposure control, ma/kV adjustment per patient size (including targeted exams where dose is matched to indication, i.e. head), or iterative reconstruction technique. Axial spiral CT scanning performed of the cervical spine beginning at the base of the skull and continuing to the upper T-spine. 3-D multiplanar reconstruction with 3-D manipulation of volumetric data set in image rendering was completed by the radiologist and/or technologist with the supervision of the radiologist on independent workstation. FINDINGS: There is normal alignment. No fracture or dislocation. C2-C3: Degenerate disc disease. C3-C4: Degenerate disc disease with narrowing of the canal C4-C5: Degenerate disc disease with bilateral foraminal narrowing from facet and uncovertebral hypertrophy with narrowing of the canal. C5-C6: Degenerate disc disease with mild bilateral foraminal narrowing. C6-C7: Degenerate disc disease with mild left foraminal narrowing. Lung apices are clear. Incidental note is made of a 17 mm hypodense thyroid nodule on the left IMPRESSION: No acute fracture. Multilevel cervical spondylosis as detailed above. 17 mm hypodense left thyroid nodule. Nonemergent ultrasound may provide further evaluation Dictated b Christophe Truong MD 04/05/2020 12:16 Christophe Truong MD in [facility] 04/05/2020 12:16
--- NOTE | 2020-04-05 09:27 | XR_ITS ---
PROCEDURE: XR CHEST AP CLINICAL HISTORY: fall Posttraumatic pain COMPARISON: CR CXR CHEST(2 VIEWS-NOT PORTABLE) from 06/13/2017 CR Chest from 04/10/2019 CR XR CHEST AP from 12/07/2019 FINDINGS: The cardiomediastinal silhouette and pulmonary vascularity are within normal limits. There is some patchy density noted in the left mid lung which may be due to an area of atelectasis or patchy infiltrate versus developing fibrosis. Upright follow-up PA and lateral chest suggested. There is subacromial stenosis on the right with superior elevation of the right humeral head consistent with sequela from rotator cuff tear. No acute bony abnormalities. IMPRESSION: Patchy density left midlung which could be due to an area of atelectasis/infiltrate or fibrosis. Severe right subacromial stenosis with superior elevation of the right humeral head consistent rotator cuff tear Dictated b Christophe Truong MD 04/05/2020 12:39 Christophe Truong MD in [facility] 04/05/2020 12:39
--- NOTE | 2020-04-05 09:28 | ECG_ITS ---
APPROVED REPORT Exam: Resting ECG HR:63 bpm ECG Measurements Heart Rate 63 AXES RI 122 P 47 QRSd 78 QRS 6 QT 432 T 56 QTc 442 <Conclusion> Normal sinus rhythm Left atrial abnormality Late r wave progression - previously noted Abnormal ECG Electronically signed by : Neftali Avalos, 04/07/2020 08:30:01
--- NOTE | 2020-04-05 09:33 | CT_ITS ---
PROCEDURE: CT HEAD/BRAIN WO CON CLINICAL INDICATION: fall Head injury with headache/pain, contusion, abrasion or hematoma, bleeding from the back of the head COMPARISON: CT CT HEAD/BRAIN WO CON from 12/07/2019 TECHNIQUE: Axial images obtained. All CT scans at the facility use one or more dose reduction, viz: automated exposure control, ma/kV adjustment per patient size (including targeted exams where dose is matched to indication, i.e. head), or iterative reconstruction technique. FINDINGS: No midline shift or mass effect is evident. There is atrophy with periventricular ischemic gliotic changes. There is a carotid stent in place within the cavernous and suprasellar portion of the right ICA. There are some encephalomalacia changes along the distal aspect of the stent. Subcutaneous soft tissue swelling is present along the vertex posteriorly. No calvarial fracture. IMPRESSION: No acute intracranial findings. Carotid stent present on the right Soft tissue swelling of the scalp posteriorly at the vertex Dictated b Christophe Truong MD 04/05/2020 12:13 Christophe Truong MD in [facility] 04/05/2020 12:13
--- NOTE | 2020-04-05 09:36 | CT_ITS ---
PROCEDURE: CT HIP RT WO CON CLINICAL HISTORY: fall Ago couple ER 3 posttraumatic pain COMPARISON: CT ABDPELW CT abdomen pelvis w con from 01/27/2019 TECHNIQUE: Axial images obtained with sagittal and coronal reformats. All CT scans at the facility use one or more dose reduction, viz: automated exposure control, ma/kV adjustment per patient size (including targeted exams where dose is matched to indication, i.e. head), or iterative reconstruction technique. FINDINGS: Total right hip prosthesis is present and in good position. No obvious fracture or dislocation. There is considerable artifact from the prosthesis. No obvious soft tissue mass or hematoma. Air Brake Rigger image shows degenerative changes of the lumbar spine and a 2.3 cm gallstone. IMPRESSION: Total right hip prosthesis in place. No evidence of acute fracture Dictated b Christophe Truong MD 04/05/2020 12:19 Christophe Truong MD in [facility] 04/05/2020 12:19
[2020-04-05 09:37] LABS: Basophils # 0.1 K/mm3 (0-0.2); Basophils % 0.8 % (0.1-2.0); Eosinophils # 0.5 K/mm3 (0.0-0.4); Eosinophils % 4.1 % (0.1-12.0); Hematocrit 40.7 % (37.0-47.0); Hemoglobin 13.8 g/dL (12.2-16.2); Lymphocytes # 2.6 K/mm3 (0.7-4.5); Lymphocytes % 22.9 % (10-50); Mean Corpuscular Hemoglobin 32.8 pg (27.0-31.2); Mean Corpuscular Volume 96.5 fl (81-99); Mean Platelet Volume 8.5 fl (7.4-10.4); Monocytes # 0.6 K/mm3 (0.1-1.0); Neutrophils # 7.6 K/mm3 (1.8-7.8); Neutrophils % 67.2 % (37.0-80.0); Platelet Count 258 K/mm3 (142-424); Red Blood Count 4.21 M/mm3 (4.20-5.40); Red Cell Distribution Width 13.7 % (11.5-17.5); White Blood Count 11.3 K/mm3 (4.8-10.8)
--- NOTE | 2020-04-05 09:38 | XR_ITS ---
PROCEDURE: XR ANKLE RT 2V CLINICAL INDICATION: fall COMPARISON: No exams were available for comparison FINDINGS: No obvious fracture or dislocation. Prominent calcaneal spur IMPRESSION: No acute findings. Dictated b Christophe Truong MD 04/05/2020 12:37 Christophe Truong MD in [facility] 04/05/2020 12:37
--- NOTE | 2020-04-05 09:38 | XR_ITS ---
PROCEDURE: XR ANKLE LT 2V CLINICAL INDICATION: fall Posttraumatic pain COMPARISON: No exams were available for comparison FINDINGS: No obvious fracture or dislocation. IMPRESSION: No acute findings. Dictated b Christophe Truong MD 04/05/2020 12:36 Christophe Truong MD in [facility] 04/05/2020 12:36
--- NOTE | 2020-04-05 09:40 | HMH.EDFALL ---
ED Disposition Clinical Impression: Urinary tract infection Qualifiers: Urinary tract infection type: acute cystitis Hematuria presence: with hematuria Qualified Code(s): N30.01 - Acute cystitis with hematuria Laceration of scalp Qualifiers: Encounter type: initial encounter Qualified Code(s): S01.01XA - Laceration without foreign body of scalp, initial encounter Disposition: Home, Self-Care Condition on Discharge: Fair Instructions: How to Prevent Falls Additional Instructions: CBC is normal electrolytes are normal troponin is normal urine analysis does show UTI with 4+ bacteria 2+ leukocyte esterase and 20-50 WBCs we have given 500 mg of IV Levaquin plan is to discharge her home on Levaquin for 7 more days urine culture has also been ordered we did a CT of the head and it shows no acute findings CT of the pelvis shows no acute findings CT of the C-spine shows no acute findings we also did x-rays bilaterally of her ankles and these do not show any acute findings finally the lacerations on her scalp will be stapled and that she can return back to the [facility]. Please have carlos manuel removed in 7-10 days Prescriptions: levoFLOXacin [Levaquin 500mg tab] 500 mg PO DAILY #7 tab Transmission Status: Pending to [facility] Time of Disposition: 12:47 - Critical Care Critical Care Time: No Attestation: On , the high probability of a clinically significant, sudden or life threatening deterioration of the following system(s) required my full and direct attention, intervention and personal management. The time I documented below is in addition to time spent performing reported procedures but includes the following listed in this critical care notation. Medical Decision Making - Medical Records Medical records reviewed: Yes: I reviewed the patient's medical records. MR Giordano: Is a 74-year-old female who lives at the [facility] and fell this morning, the nurses at the [facility] stare she probably tripped and fell did not complain of any dizziness prior to falling, past history significant for dementia COPD and frequent UTIs; she has been at the [facility] for about a year it appears she does have a couple lacerations on her scalp, is awake and alert but does appear to have dementia. Patient and note that her vital signs are stable CBC is normal electrolytes are normal troponin is normal urine analysis does show UTI with 4+ bacteria 2+ leukocyte esterase and 20-50 WBCs we have given 500 mg of IV Levaquin plan is to discharge her home on Levaquin for 7 more days urine culture has also been ordered we did a CT of the head and it shows no acute findings CT of the pelvis shows no acute findings CT of the C-spine shows no acute findings we also did x-rays bilaterally of her ankles and these do not show any acute findings finally the lacerations on her scalp will be stapled and that she can return back to the [facility] - Nico Inquiry Pt receiving controlled substance: No Vital Signs: 04/05/20 09:22 04/05/20 10:16 Pulse Rate [Radial] 64 57 L Respiratory Rate 18 Blood Pressure [Right Arm] 114/70 114/65 Blood Pressure Mean [Right Arm] 84 81 Blood Pressure Source [Right Arm] Automatic Cuff Automatic Cuff Blood Pressure Position [Right Arm] Sitting Supine 02 Sat by Pulse Oximetry 94 L 95 Oxygen Delivery Method Room Air Room Air - Lab Data Lab results reviewed: Yes: I reviewed the patient's lab results. Lab Results 04/05/20 09:25: WBC 11.3 H, RBC 4.21, Hgb 13.8, Hct 40.7, MCV 96.5, MCH 32.8 H, MCHC 34.0, RDW 13.7, Plt Count 258, MPV 8.5, Neut % (Auto) 67.2, Lymph % (Auto) 22.9, Harper % (Auto) 5.0, Eos % (Auto) 4.1, Baso % (Auto) 0.8, Neut # (Auto) 7.6, Lymph # (Auto) 2.6, Harper # (Auto) 0.6, Eos # (Auto) 0.5 H, Baso # (Auto) 0.1 04/05/20 09:25: Sodium 143, Potassium 4.4, Chloride 106, Carbon Dioxide 27, Anion Gap 14.4, BUN 16, Creatinine 0.90, Estimated Creat Clear 57, Estimated GFR 61, Est GFR
[2020-04-05 09:41] LABS: Anion Gap 14.4 mEq/L (5-15); Blood Urea Nitrogen 16 mg/dl (7-17); Calcium 9.9 mg/dl (8.4-10.2); Carbon Dioxide 27 mmol/L (22.0-30.0); Chloride 106 mmol/L (98-107); Creatinine Clearance Estimated 57 mL/min (50-200); Estimated Glomerular Filt Rate 61 ml/min (>60); GFR (African American) 74 ML/MIN (>60); Glucose 110 mg/dl (74-100); Potassium 4.4 mmoL/L (3.5-5.1); Sodium 143 mmol/L (136-145)
--- NOTE | 2020-04-05 09:43 | CT_ITS ---
PROCEDURE: CT HIP LT WO CON CLINICAL HISTORY: fall Posttraumatic pain COMPARISON: CT CT HIP RT WO CON from 04/05/2020 TECHNIQUE: Axial images obtained with sagittal and coronal reformats. All CT scans at the facility use one or more dose reduction, viz: automated exposure control, ma/kV adjustment per patient size (including targeted exams where dose is matched to indication, i.e. head), or iterative reconstruction technique. FINDINGS: There is a total left hip prosthesis present which is in good position. No acute fracture or dislocation is evident. Considerable artifact is present from the prosthesis. Incidental note is made of colonic diverticulosis. No obvious soft tissue hematomas of the imaged area. IMPRESSION: Left hip prosthesis in place. No acute fracture. Dictated b Christophe Truong MD 04/05/2020 12:21 Christophe Truong MD in [facility] 04/05/2020 12:21
[2020-04-05 09:55] LABS: Troponin I < 0.01 ng/ml (0.00-0.034)
[2020-04-05 10:00] LABS: Microscopic, Urine URINE MICROSCOPIC (MICROSCOPIC)
[2020-04-05 10:01] LABS: Appearance,Urine CLOUDY (Clear); Bilirubin,Urine Negative (Negative); Blood, Urine 3+ (Negative); Color,Urine BROWN (Yellow); Glucose,Urine (UA) Negative (Negative); Ketones,Urine Negative (Negative); Leukocyte Esterase,Urine 2+ (Negative); Nitrate,Urine Negative (Negative); PH,Urine 8.5 (5.0-8.5); Protein,Urine 2+ (Negative); Urobilinogen,Urine 0.2 EU/dl (0.2)
[2020-04-05 10:16] VITALS: BP 114/65; PULSE 57; O2SAT 95
[2020-04-05 10:25] LABS: Bacteria,Urine 4+ /lpf; WBC,Urine 20-50 #/hpf (0-3)
--- NOTE | 2020-04-05 11:42 | PC.NURSE ---
pt back from CT
--- NOTE | 2020-04-05 13:20 | PC.NURSE ---
report called to YAMINI Restrepo at [facility].
[2020-04-05 13:32] VITALS: BP 113/81; PULSE 77; O2SAT 98
[2020-04-05 13:47] VITALS: BP 115/79; PULSE 68; RESP 15; TEMP 36.8; O2SAT 96
[2020-04-05 14:32] VITALS: BP 123/56; PULSE 87; RESP 16; TEMP 36.6; O2SAT 98
== END 2020-04-05 14:34 | disposition home or self-care (01) ==
PROVIDERS: Emergency Provider Emergency Medicine
DX: S01.01XA Laceration without foreign body of scalp, initial encounter (principal); W01.10XA Fall on same level from slipping, tripping and stumbling with subsequent striking against unspecified object, initial encounter; Y92.129 Unspecified place in nursing home as the place of occurrence of the external cause; N30.01 Acute cystitis with hematuria; J44.9 Chronic obstructive pulmonary disease, unspecified; I25.10 Atherosclerotic heart disease of native coronary artery without angina pectoris; F03.90 Unspecified dementia, unspecified severity, without behavioral disturbance, psychotic disturbance, mood disturbance, and anxiety; F17.210 Nicotine dependence, cigarettes, uncomplicated; F41.8 Other specified anxiety disorders; Z79.899 Other long term (current) drug therapy; Z88.0 Allergy status to penicillin; Z88.2 Allergy status to sulfonamides; Z88.5 Allergy status to narcotic agent; Z88.7 Allergy status to serum and vaccine
CPT/HCPCS: 12032; 70450; 71045; 72125; 73600; 73700; 80048; 81001; 84484; 85025; 87086; 87088; 87186; 93005; 96365; 96375; 99285; J1956

== ENCOUNTER 2020-04-07 09:52 | Inpatient (IN) | payer MEDICARE, MEDICAID, SELFPAY ==
[2020-04-07] VITALS (11 sets, daily range): BP systolic 85–100; BP diastolic 51–62; PULSE 59–97; RESP 13–17; TEMP 36.6–36.9; O2SAT 95–99; BMI 23.3; BMI 25.0; BMI 24.7
--- NOTE | 2020-04-07 09:57 | XR_ITS ---
PROCEDURE: XR CHEST AP CLINICAL HISTORY: weakness COMPARISON: CR Chest from 04/10/2019 CR XR CHEST AP from 12/07/2019 CR XR CHEST AP from 04/05/2020 FINDINGS: The cardiomediastinal silhouette and pulmonary vascularity are within normal limits. The lungs are clear without infiltrates, suspicious nodules, or pleural effusions. No acute bony abnormalities. IMPRESSION: No acute findings. Dictated b Christophe Truong MD 04/07/2020 12:49 Christophe Truong MD in [facility] 04/07/2020 12:49
--- NOTE | 2020-04-07 09:57 | CT_ITS ---
PROCEDURE: CT HEAD/BRAIN WO CON CLINICAL INDICATION: AMS/weakness Altered mental status, altered level of consciousness, confusion, disorientation COMPARISON: CT CT HEAD/BRAIN WO CON from 12/07/[address] HEAD/BRAIN WO CON from 04/05/2020 TECHNIQUE: Axial images obtained. All CT scans at the facility use one or more dose reduction, viz: automated exposure control, ma/kV adjustment per patient size (including targeted exams where dose is matched to indication, i.e. head), or iterative reconstruction technique. FINDINGS: No midline shift, mass effect, intracranial hemorrhage, hydrocephalus, or extra-axial fluid collection is evident. There is generalized atrophy with hypoattenuation of the periventricular white matter consistent with microangiopathic changes.. Carotid stent is present in the cavernous and suprasellar portion of the right ICA. Skin clips are present in the vertex region of the scalp posteriorly. The calvarium has an unremarkable appearance. No mastoid effusion. No sinus air-fluid level. IMPRESSION: No acute intracranial finding Dictated b Christophe Truong MD 04/07/2020 12:08 Christophe Truong MD in [place] 04/07/2020 12:08
--- NOTE | 2020-04-07 10:10 | HMH.EDGENADL ---
ED Disposition Clinical Impression: REED (acute kidney injury) Hematuria Qualifiers: Hematuria type: gross Qualified Code(s): R31.0 - Gross hematuria UTI (urinary tract infection) Qualifiers: Urinary tract infection type: acute cystitis Hematuria presence: with hematuria Qualified Code(s): N30.01 - Acute cystitis with hematuria Disposition: Admitted As Inpatient Condition on Discharge: Good Time of Disposition: 12:26 - Critical Care Critical Care Time: No Attestation: On , the high probability of a clinically significant, sudden or life threatening deterioration of the following system(s) required my full and direct attention, intervention and personal management. The time I documented below is in addition to time spent performing reported procedures but includes the following listed in this critical care notation. Medical Decision Making - Medical Records Medical records reviewed: Yes: I reviewed the patient's medical records. MR Comment: 74-year-old female presents to the emergency department due to hematuria. She has complained of intermittent abdominal pain and has had gross hematuria today, was started on Levaquin yesterday for urinary tract infection prior to developing hematuria. Blood pressures been in the 80's-90s with good map. Further evaluation including labs, urine, and reassess. On reassessment, patient remained stable. She was given a gram of ceftriaxone after arrival due to white blood cell count and tachycardia. She is also given fluids. Will be admitted for further evaluation and treatment. - Nico Inquiry Pt receiving controlled substance: No Vital Signs: 04/07/20 09:57 04/07/20 10:22 04/07/20 10:52 Temperature 98.5 F Temperature Source Rectal Pulse Rate Pulse Rate [Right] 64 64 59 L Respiratory Rate 16 16 16 Blood Pressure Blood Pressure [Right Arm] 87/54 L 85/51 L 88/59 L Blood Pressure Mean [Right Arm] 65 62 68 Blood Pressure Source Blood Pressure Source [Right Arm] Automatic Cuff Automatic Cuff Automatic Cuff Blood Pressure Position Blood Pressure Position [Right Arm] Sitting Sitting Sitting 02 Sat by Pulse Oximetry 96 99 99 Oxygen Delivery Method Room Air Room Air 04/07/20 11:52 04/07/20 12:22 04/07/20 12:28 Temperature Temperature Source Pulse Rate Pulse Rate [Right] 65 65 64 Respiratory Rate 16 16 16 Blood Pressure Blood Pressure [Right Arm] 100/56 L 95/60 L 100/61 L Blood Pressure Mean [Right Arm] 70 71 74 Blood Pressure Source Blood Pressure Source [Right Arm] Automatic Cuff Automatic Cuff Automatic Cuff Blood Pressure Position Blood Pressure Position [Right Arm] Sitting Sitting Sitting 02 Sat by Pulse Oximetry 99 98 98 Oxygen Delivery Method Room Air 04/07/20 12:29 04/07/20 12:56 Temperature 98.5 F 98.5 F Temperature Source Rectal Temporal Artery Scan Pulse Rate 63 75 Pulse Rate [Right] Respiratory Rate 16 16 Blood Pressure 100/60 L 100/61 L Blood Pressure [Right Arm] Blood Pressure Mean [Right Arm] Blood Pressure Source Automatic Cuff Automatic Cuff Blood Pressure Source [Right Arm] Blood Pressure Position Sitting Sitting Blood Pressure Position [Right Arm] 02 Sat by Pulse Oximetry Oxygen Delivery Method Room Air Room Air - Lab Data Lab Results 04/07/20 10:12: Urine Color Red, Urine Appearance Cloudy, Urine pH 7.0, Ur Specific [place] 1.010, Urine Protein 3+, Urine Glucose (UA) 1+, Urine Ketones 2+, Urine Blood 3+, Urine Nitrate Positive, Urine Bilirubin 3+ A, Urine Urobilinogen >=8.0, Ur Leukocyte Esterase 3+ A, Urine RBC Tntc, Urine WBC 20-50, Ur Squamous Epith Cells 3-5, Urine Bacteria 3+ 04/07/20 10:12: WBC 17.9 H D, RBC 3.15 L D, Hgb 10.3 L, Hct 30.2 L, MCV 96.0, MCH 32.8 H, MCHC 34.1, RDW 13.8, Plt Count 247, MPV 8.5, Neut % (Auto) 77.8, Lymph % (Auto) 15.5, Moody % (Auto) 4.6, Eos % (Auto) 1.6, Baso % (Auto) 0.4, Neut # (Auto) 14.0 H, Lymph # (Auto) 2.8, Moody # (Auto) 0.8, Eos # (Auto) 0.3, Baso # (
--- NOTE | 2020-04-07 10:16 | CT_ITS ---
PROCEDURE: CT ABDOMEN PELVIS W CON CLINICAL INDICATION: abd pain Abdominal pain with hematuria COMPARISON: CT ABDPELW CT abdomen pelvis w con from 01/27/[address] ABDOMEN WO/W CON from 07/07/[address] HIP LT WO CON from 04/05/2020 TECHNIQUE: IV Contrast: 75ML OPTIRAY 350 Oral Contrast None Axial images obtained with sagittal and coronal reformats. All CT scans at the facility use one or more dose reduction, viz: automated exposure control, ma/kV adjustment per patient size (including targeted exams where dose is matched to indication, i.e. head), or iterative reconstruction technique. FINDINGS: LOWER THORAX: Mild atelectatic changes in the lung bases. Coronary artery calcifications. ABDOMEN & PELVIS: The liver, spleen, and pancreas have an unremarkable appearance. There is a 2 cm gallstone in the fundus of the gallbladder. There is bilateral adrenal enlargement left greater than right with the left adrenal gland measuring up to 2.9 cm consistent with an adenoma from a previous exam. There is mild enlargement of the right adrenal gland unchanged. There is mild bilateral hydronephrosis and hydroureter. A Mccoy catheter is present with diffuse heterogeneous density within the urinary bladder with some gas also noted along the wall of the urinary bladder anteriorly. Some of this gas could actually be within the wall of the urinary bladder. There are bladder diverticula noted anteriorly and superiorly. There is mild thickening of the urinary bladder wall. No intestinal obstruction or free air. There is mild ectasia of the infrarenal abdominal aorta measuring up to 2.6 cm. No evidence of appendicitis. There is diffuse colonic diverticulosis of the descending and sigmoid colon. No evidence of diverticulitis. There is significant artifact from bilateral hip prosthesis. No definite acute bony anomalies. IMPRESSION: 1. Urinary bladder has an abnormal appearance with heterogeneous areas of increased density consistent with blood within the urinary bladder. The wall of the urinary bladder is slightly thickened with some gas along or within the wall anteriorly raising the suspicion for emphysematous cystitis. A Mccoy catheter is present. There is mild dilatation of the renal collecting system on both sides. 2. Diffuse colonic diverticulosis without diverticulitis. 3. Bilateral enlarged adrenal glands not significantly changed Dictated b Christophe Truong MD 04/07/2020 12:21 Christophe Truong MD in [place] 04/07/2020 12:21
[2020-04-07 10:23] LABS: Basophils # 0.1 K/mm3 (0-0.2); Basophils % 0.4 % (0.1-2.0); Eosinophils # 0.3 K/mm3 (0.0-0.4); Eosinophils % 1.6 % (0.1-12.0); Hematocrit 30.2 % (37.0-47.0); Hemoglobin 10.3 g/dL (12.2-16.2); Lymphocytes # 2.8 K/mm3 (0.7-4.5); Lymphocytes % 15.5 % (10-50); Mean Corpuscular HGB Conc 34.1 g/dL (31.8-35.4); Mean Corpuscular Hemoglobin 32.8 pg (27.0-31.2); Mean Platelet Volume 8.5 fl (7.4-10.4); Monocytes # 0.8 K/mm3 (0.1-1.0); Monocytes % 4.6 % (1.7-9.3); Neutrophils % 77.8 % (37.0-80.0); Platelet Count 247 K/mm3 (142-424); Red Blood Count 3.15 M/mm3 (4.20-5.40); Red Cell Distribution Width 13.8 % (11.5-17.5); White Blood Count 17.9 K/mm3 (4.8-10.8)
[2020-04-07 10:26] LABS: Chloride 104 mmol/L (98-107); Potassium 3.7 mmoL/L (3.5-5.1); Sodium 139 mmol/L (136-145)
[2020-04-07 10:29] LABS: Alanine Aminotransferase 16 U/L (12-78); Albumin Level 3.6 g/dl (3.5-5.0); Albumin/Globulin Ratio 1.3 (1.1-1.8); Alkaline Phosphatase 91 U/L (38-126); Anion Gap 13.7 mEq/L (5-15); Aspartate Amino Transferase 24 U/L (14-36); Bilirubin,Total 0.4 mg/dl (0.2-1.3); Blood Urea Nitrogen 34 mg/dl (7-17); Carbon Dioxide 25 mmol/L (22.0-30.0); Creatinine Clearance Estimated 38 mL/min (50-200); Estimated Glomerular Filt Rate 37 ml/min (>60); GFR (African American) 44 ML/MIN (>60); Globulin 2.8 g/dL (1.3-3.2); Total Protein,Serum 6.4 g/dl (6.3-8.2)
[2020-04-07 10:30] LABS: Calcium 9.4 mg/dl (8.4-10.2); Glucose 99 mg/dl (74-100)
[2020-04-07 10:33] LABS: MANUAL DIFFERENTIAL MANUAL DIFFERENTIAL (MANUAL DIFF)
[2020-04-07 10:37] LABS: Adenovirus,PCR Not Detected (NotDetected); Bordetella Pertussis Not Detected (NotDetected); Chlamydophila Pneumoniae, PCR Not Detected (NotDetected); Coronavirus 19, PCR Not Detected (NotDetected); Coronavirus 229E Not Detected (NotDetected); Coronavirus NL63 Not Detected (NotDetected); Coronavirus OC43 Not Detected (NotDetected); Coronovirus HKU1,PCR Not Detected (NotDetected); Human Metapneumovirus Not Detected (NotDetected); Influenza A, PCR Not Detected (NotDetected); Influenza AH1, 2009 Not Detected (NotDetected); Influenza AH1, PCR Not Detected (NotDetected); Influenza AH3,PCR Not Detected (NotDetected); Influenza B, PCR Not Detected (NotDetected); Mycoplasma Pneumoniae, PCR Not Detected (NotDetected); Parainfluenza 1, PCR Not Detected (NotDetected); Parainfluenza 2, PCR Not Detected (NotDetected); Parainfluenza 3, PCR Not Detected (NotDetected); Parainfluenza 4, PCR Not Detected (NotDetected); Respiratory Syncytial Virus Not Detected (NotDetected); Rhinovirus/Enterovirus Not Detected (NotDetected)
[2020-04-07 10:40] LABS: Lymphocytes % 23 % (10-50); Monocytes % 1 % (2-9); Neutrophils % 76 % (42-76); Total Cells Counted 100
[2020-04-07 10:41] LABS: Platelet Estimate Normal; RBC Morphology Normal
[2020-04-07 10:49] LABS: Microscopic, Urine URINE MICROSCOPIC (MICROSCOPIC)
[2020-04-07 11:02] LABS: Appearance,Urine CLOUDY (Clear); Blood, Urine 3+ (Negative); Color,Urine RED (Yellow); Glucose,Urine (UA) 1+ (Negative); Ketones,Urine 2+ (Negative); Leukocyte Esterase,Urine 3+ (Negative); Nitrate,Urine POSITIVE (Negative); Protein,Urine 3+ (Negative); Urobilinogen,Urine >=8.0 EU/dl (0.2)
[2020-04-07 11:03] LABS: Bilirubin,Urine 3+ (Negative)
[2020-04-07 11:04] LABS: RBC,Urine TNTC #/hpf (0-3); WBC,Urine 20-50 #/hpf (0-3)
[2020-04-07 11:05] LABS: Bacteria,Urine 3+ /lpf
--- NOTE | 2020-04-07 11:05 | PC.NURSE ---
Pt left for CT
[2020-04-07 11:18] LABS: Lactic Acid 1.4 mmol/L (0.7-2.1)
--- NOTE | 2020-04-07 11:34 | PC.NURSE ---
Pt returned from CT
--- NOTE | 2020-04-07 12:52 | PC.NURSE ---
pt arrived to the floor at this time via stretcher
--- NOTE | 2020-04-07 14:19 | HMH.PHAINT ---
HOME MEDICATIONS RECONCILED FROM PRISON OCT.
--- NOTE | 2020-04-07 14:21 | P.CONPHA_ITS ---
[facility] Pharmacy VTE Monitoring - Patient Demographics Admission date: 04/07/20 Report Date: 04/07/20 Time: 14:21 Allergies/Adverse Reactions: Patient Allergies diphtheria toxoid,fluid [DIPHTHERIA TOXOID,FLUID] Allergy (Unknown, Verified 04/07/20 10:27) Unknown allergy reaction Penicillins [PENICILLINS] Allergy (Unknown, Verified 04/07/20 10:27) Unknown allergy reaction Sulfa (Sulfonamide Antibiotics) [SULFA (SULFONAMIDE ANTIBIOTICS)] Allergy (Unknown, Verified 04/07/20 10:27) Unknown allergy reaction tetanus and diphtheria toxoids [TETANUS & DIPHTHERIA TOXOIDS] Allergy (Unknown, Verified 04/07/20 10:27) Unknown allergy reaction codeine Allergy (Verified 04/07/20 10:27) Unknown allergy reaction morphine Allergy (Verified 04/07/20 10:27) Unknown allergy reaction Height: 1.68 m Weight: 69.456 kg Patient Problems: Current Active Problems Urinary tract infection (Acute) Hematuria (Acute) REED (acute kidney injury) (Acute) - VTE Risk Labs: VTE Related Lab Results Hgb 10.3 g/dL (12.2-16.2) L 04/07/20 10:12 Hct 30.2 % (37.0-47.0) L 04/07/20 10:12 Plt Count 247 K/mm3 (142-424) 04/07/20 10:12 BUN 34 mg/dl (7-17) H D 04/07/20 10:12 Creatinine 1.40 mg/dl (0.52-1.04) H D 04/07/20 10:12 Estimated Creat Clear 38 mL/min (50-200) 04/07/20 10:12 - Prophylaxis VTE Prophylaxis Ordered?: Yes Types of VTE Prophylaxis: TEDS Knee High Location of Applied Device: Bilateral Lower Extremeties
--- NOTE | 2020-04-07 16:27 | HMH.HP ---
*Admission Date: 04/07/20 *Chief complaint: abd pain *History of present illness: 74-year-old female with a history of dementia, COPD presents the emergency department from [facility] due to hematuria found in depends this am at long term. She states that she has had a little pain in her abdomen, is not bothering her at this time, but has occasionally hurt and she has a history of urinary tract infections. She denies a history of kidney stones. She denies any nausea or vomiting. No known fevers. No other known symptoms or concerns at this time. Started On Levaquin yesterday for urinary tract infection per EMS. pt admitted for uti. [facility] History I have reviewed the patient's past medical history: Yes Medical History: Reports:: Aneurysm, Anxiety, Cancer, Chronic Obstructive Pulmonary Disease (COPD), Coronary Artery Disease, Dementia, Depression, Hypertension, Migraine, Urinary Tract Infection Denies:: Diabetes Mellitus Type 1, Diabetes Mellitus Type 2, Internal Pacemaker, MRSA, Seizures *Have you ever received a pneumonia vaccine?: Yes *Have you received a flu vaccine this season?: Yes Other Medical History: Reports: Anemia, Arthritis, Sinus Problems, Other (bipolar) Laterality Cases: Bilateral: ACL Repair, Total Hip Replacement Other Surgeries: Yes: Appendectomy, Cardiac Catheterization, Colonoscopy, Colon Resection, Coronary Stent, Hysterectomy-Total, Other (rt hip replacement). No: Pacemaker Amputation: No Fractures: No - *Social History Last grade of school completed: 11th or 12th Smoking Status: Never smoker Tobacco Type: cigarettes # Packs/Day (cigarettes): 1 #Yrs smoked (if former smoker): 60 Alcohol Intake: never Alcohol Intake Frequency:: other Substance Use Type: denies use *Occupational Status:: disabled Housing: long term Household Members: other *Travel in the last 8 weeks: None - Psychiatric History Pschychiatric History:: Reports:: Anxiety, Depression Family Hx:: Heart Attack, Hypertension Review of Systems - Review of Systems Review of systems:: pertinent systems reviewed and negative unless documented below - Constitutional Denies fatigue, Denies weight loss - Eyes Denies change in vision - ENT Denies bleeding gums, Denies neck pain - *Cardiovascular Denies chest pain at rest - *Respiratory Denies chest congestion - *Gastrointestinal Denies bloating, Denies nausea, Denies vomiting - *Genitourinary Reports pelvic pain, Reports urinary incontinence, Reports urinary urgency, Reports vaginal discharge - *Musculoskeletal Denies joint pain - Integumentary/Breasts Denies bleeding lesions, Denies rash - *Neurologic Denies abnormal hearing, Denies dizziness - Psychiatric Denies lack of enjoyment, Denies behavioral changes - Hematologic/Lymphatic Denies enlarged lymph nodes - Allergic/Immunologic Denies itchy eyes Meds Home Medications Medication Instructions Recorded Confirmed Type Multivitamin [Multi-Vitamin Plain] 1 each PO DAILY 01/04/19 04/07/20 History Hydrocodone/Acetaminophen [Kelly 1 each PO Q6HP PRN #60 tab 01/14/19 04/07/20 Rx 5-325 Tablet] Bethanechol Chloride [Urecholine 10 mg PO TID 01/27/19 04/07/20 History 10mg tablet] docusate sodium 100 mg capsule 250 mg PO DAILY cap 01/02/20 04/07/20 History donepezil 10 mg tablet 10 mg PO DAILY tab 01/02/20 04/07/20 History gabapentin 400 mg capsule 400 mg PO TID cap 01/02/20 04/07/20 History ibuprofen 400 mg tablet 400 mg PO Q6H PRN tab 01/02/20 04/07/20 History citalopram 20 mg tablet 30 mg PO DAILY tab 01/18/20 04/07/20 History memantine 10 mg tablet 10 mg PO BID tab 01/18/20 04/07/20 History Atorvastatin Calcium [Atorvastatin 40 mg PO HS 01/24/20 04/07/20 History 40mg Tab] Ticagrelor [Brilinta 90mg Tablet] 90 mg PO BID 01/24/20 04/07/20 History ramipriL [Altace 5mg capsule] 5 mg PO DAILY 01/24/20 04/07/20 History acetaminophen 500 mg tablet 500 mg PO TID PRN 02/29/20 04/07/20 History Aspir
[2020-04-08 04:00] VITALS: BP 85/52; PULSE 69; RESP 16; TEMP 37; O2SAT 93
[2020-04-08 07:39] LABS: Basophils # 0.1 K/mm3 (0-0.2); Basophils % 0.3 % (0.1-2.0); Eosinophils # 0.2 K/mm3 (0.0-0.4); Eosinophils % 0.9 % (0.1-12.0); Lymphocytes # 2.5 K/mm3 (0.7-4.5); Lymphocytes % 14.6 % (10-50); Mean Corpuscular HGB Conc 32.9 g/dL (31.8-35.4); Mean Corpuscular Hemoglobin 32.3 pg (27.0-31.2); Mean Corpuscular Volume 97.9 fl (81-99); Mean Platelet Volume 8.4 fl (7.4-10.4); Monocytes # 0.8 K/mm3 (0.1-1.0); Monocytes % 4.8 % (1.7-9.3); Neutrophils # 13.4 K/mm3 (1.8-7.8); Neutrophils % 79.4 % (37.0-80.0); Platelet Count 200 K/mm3 (142-424); Red Blood Count 2.65 M/mm3 (4.20-5.40); Red Cell Distribution Width 13.8 % (11.5-17.5); White Blood Count 16.8 K/mm3 (4.8-10.8)
[2020-04-08 07:44] LABS: Hemoglobin 8.6 g/dL (12.2-16.2); MANUAL DIFFERENTIAL MANUAL DIFFERENTIAL (MANUAL DIFF)
[2020-04-08 07:45] LABS: Chloride 114 mmol/L (98-107)
[2020-04-08 07:46] LABS: Potassium 3.8 mmoL/L (3.5-5.1); Sodium 143 mmol/L (136-145)
[2020-04-08 07:49] LABS: Anion Gap 10.8 mEq/L (5-15); Blood Urea Nitrogen 20 mg/dl (7-17); Calcium 8.8 mg/dl (8.4-10.2); Carbon Dioxide 22 mmol/L (22.0-30.0); Creatinine Clearance Estimated 54 mL/min (50-200); Estimated Glomerular Filt Rate 61 ml/min (>60); GFR (African American) 74 ML/MIN (>60); Glucose 93 mg/dl (74-100)
[2020-04-08 07:55] LABS: Eosinophils % 1 % (0-3); Lymphocytes % 21 % (10-50); Monocytes % 2 % (2-9); Neutrophils % 76 % (42-76); Platelet Estimate Normal; RBC Morphology Normal; Total Cells Counted 100
[2020-04-08 08:00] VITALS: BP 81/44; PULSE 65; RESP 18; TEMP 37.7; O2SAT 96
[2020-04-08 09:00] VITALS: BP 90/55; TEMP 37.1
--- NOTE | 2020-04-08 09:12 | HMH.ACPN2 ---
Internal Medicine - PN: Subj *Date: 04/09/20 *Time: 00:43 Interval history: some better-still hematuria Exam Vital signs and Labs for Last 24 Hours: Temp Pulse Resp BP Pulse Ox 99.8 F H 65 18 81/44 L 96 04/08/20 08:00 04/08/20 08:00 04/08/20 08:00 04/08/20 08:00 04/08/20 08:00 Laboratory Results - last 24 hr 04/07/20 10:12: Urine Color Red, Urine Appearance Cloudy, Urine pH 7.0, Ur Specific [place] 1.010, Urine Protein 3+, Urine Glucose (UA) 1+, Urine Ketones 2+, Urine Blood 3+, Urine Nitrate Positive, Urine Bilirubin 3+ A, Urine Urobilinogen >=8.0, Ur Leukocyte Esterase 3+ A, Urine RBC Tntc, Urine WBC 20-50, Ur Squamous Epith Cells 3-5, Urine Bacteria 3+ 04/07/20 10:12: WBC 17.9 H D, RBC 3.15 L D, Hgb 10.3 L, Hct 30.2 L, MCV 96.0, MCH 32.8 H, MCHC 34.1, RDW 13.8, Plt Count 247, MPV 8.5, Neut % (Auto) 77.8, Lymph % (Auto) 15.5, [place] % (Auto) 4.6, Eos % (Auto) 1.6, Baso % (Auto) 0.4, Neut # (Auto) 14.0 H, Lymph # (Auto) 2.8, Stewart # (Auto) 0.8, Eos # (Auto) 0.3, Baso # (Auto) 0.1, Total Counted 100, Neutrophils % (Manual) 76, Lymphocytes % (Manual) 23, Monocytes % (Manual) 1 L, Platelet Estimate Normal, RBC Morphology Normal 04/07/20 10:12: Sodium 139, Potassium 3.7, Chloride 104, Carbon Dioxide 25, Anion Gap 13.7, BUN 34 H D, Creatinine 1.40 H D, Estimated Creat Clear 38, Estimated GFR 37 L, Est GFR ( Amer) 44 L D, Glucose 99, Calcium 9.4, Total Bilirubin 0.4, AST 24, ALT 16, Alkaline Phosphatase 91, Total Protein 6.4, Albumin 3.6, Globulin 2.8, Albumin/Globulin Ratio 1.3 04/07/20 10:30: Chlamy pneumoniae PCR Not detected, Adenovirus (PCR) Not detected, B. pertussis DNA (PCR) Not detected, Coronavirus OC43 (PCR) Not detected, Coronavirus HKU1 (PCR) Not detected, Coronavirus 229E (PCR) Not detected, COVID-19 PCR Not detected, Coronavirus NL63 (PCR) Not detected, Human Metapneumovir PCR Not detected, Influenza A (H1) PCR Not detected, Influ A (H1N1/09) PCR Not detected, Influenza A (H3) PCR Not detected, Influenza Type A (PCR) Not detected, Influenza Type B (PCR) Not detected, M. pneumoniae (PCR) Not detected, Parainfluenza 1 (PCR) Not detected, Parainfluenza 2 (PCR) Not detected, Parainfluenza 3 (PCR) Not detected, Parainfluenza 4 (PCR) Not detected, RSV (PCR) Not detected, Entero/Rhino (PCR) Not detected 04/07/20 11:00: Lactate 1.4 04/07/20 11:00: Blood Type O Positive, Antibody Screen Negative 04/08/20 07:00: WBC 16.8 H, RBC 2.65 L, Hgb 8.6 L D, Hct 26.0 L, MCV 97.9, MCH 32.3 H, MCHC 32.9, RDW 13.8, Plt Count 200, MPV 8.4, Neut % (Auto) 79.4, Lymph % (Auto) 14.6, Stewart % (Auto) 4.8, Eos % (Auto) 0.9, Baso % (Auto) 0.3, Neut # (Auto) 13.4 H, Lymph # (Auto) 2.5, Stewart # (Auto) 0.8, Eos # (Auto) 0.2, Baso # (Auto) 0.1, Total Counted 100, Neutrophils % (Manual) 76, Lymphocytes % (Manual) 21, Monocytes % (Manual) 2, Eosinophils % (Manual) 1, Platelet Estimate Normal, RBC Morphology Normal 04/08/20 07:00: Sodium 143, Potassium 3.8, Chloride 114 H, Carbon Dioxide 22, Anion Gap 10.8, BUN 20 H D, Creatinine 0.90 D, Estimated Creat Clear 54, Estimated GFR 61, Est GFR ( Amer) 74 D, Glucose 93, Calcium 8.8 I & O for Last 24 hours: Intake & Output 04/05/20 04/06/20 04/07/20 04/08/20 11:59 11:59 11:59 11:59 Intake Total 980 / 980 Output Total 600 / 600 Balance 380 / 380 Weight 150 lb 153 lb 2 oz - Constitutional no acute distress - *Routine HEENT Exam Head: Present: normocephalic Eye: Present: EOMI, PERRL ENT: Present: mucous membranes dry - *Routine Neck Exam Present: supple. Absent: JVD - *Routine Respiratory Exam Present: decreased breath sounds - *Routine Cardiovascular Exam Present: RRR, murmur - *Routine Abdominal Exam Present: soft - *Routine Extremities Exam Absent: calf tenderness - *Routine Skin Exam Present: intact - *Routine Neurological Exam Present: alert, CN II-XII intact - Routine Psychiatric Exam Present: cooperative Assessment and Plan (1) Hematuria Current visit:
--- NOTE | 2020-04-08 09:22 | HMH.PHAINT ---
MED REC-MED LIST COMPARED TO FILL HX.
--- NOTE | 2020-04-08 09:22 | HMH.PHAVTE ---
[facility] Pharmacy VTE Monitoring - Patient Demographics Admission date: 04/08/20 Report Date: 04/08/20 Time: :22 Allergies/Adverse Reactions: Patient Allergies diphtheria toxoid,fluid [DIPHTHERIA TOXOID,FLUID] Allergy (Unknown, Verified 04/07/20 10:27) Unknown allergy reaction Penicillins [PENICILLINS] Allergy (Unknown, Verified 04/07/20 10:27) Unknown allergy reaction Sulfa (Sulfonamide Antibiotics) [SULFA (SULFONAMIDE ANTIBIOTICS)] Allergy (Unknown, Verified 04/07/20 10:27) Unknown allergy reaction tetanus and diphtheria toxoids [TETANUS & DIPHTHERIA TOXOIDS] Allergy (Unknown, Verified 04/07/20 10:27) Unknown allergy reaction codeine Allergy (Verified 04/07/20 10:) Unknown allergy reaction morphine Allergy (Verified 04/07/20 10:) Unknown allergy reaction Height: 1.68 m Weight: 69.456 kg Patient Problems: Current Active Problems Urinary tract infection (Acute) Hematuria (Acute) REED (acute kidney injury) (Acute) Anemia (Acute) Emphysematous cystitis (Acute) - VTE Risk Labs: VTE Related Lab Results Hgb 8.6 g/dL (12.2-16.2) L D 04/08/20 07:00 Hct 26.0 % (37.0-47.0) L 04/08/20 07:00 Plt Count 200 K/mm3 (142-424) 04/08/20 07:00 BUN 20 mg/dl (7-17) H D 04/08/20 07:00 Creatinine 0.90 mg/dl (0.52-1.04) D 04/08/20 07:00 Estimated Creat Clear 54 mL/min (50-200) 04/08/20 07:00 Was VTE Risk Assessment Performed: Yes VTE Score: 3 VTE Risk Level: Low Risk - Prophylaxis Types of VTE Prophylaxis: TEDS Knee High (EDE HOSE ORDERED) Location of Applied Device: Bilateral Lower Extremeties
--- NOTE | 2020-04-08 10:47 | PC.NURSE ---
Rounded w/ Dr. Edwin CORNEJO will recheck H/H later today. IV antibiotics to be changed to Invanz.
[2020-04-08 15:49] VITALS: BP 108/61; PULSE 65; RESP 18; TEMP 37.2; O2SAT 98
--- NOTE | 2020-04-08 17:34 | PC.NURSE ---
Pt has been confused this shift and is only oriented to person. Pt has had frequent episodes of crying and SOA that appears as a result of anxiety. Pt has also complained of lower back pain and a headache. Contacted Dr. Avalos (call or contact centre manager for Dr. Pineda) and received orders for PO Tylenol and IV Ativan. 1 dose of Ativan and 1 dose of Tylenol has been given thus far. Pt is currently resting peacefully in bed and reports that her back pain has gone away for the moment . F/C is patent and draining at bedside to gravity with no kinks/occlusions. Urine is noted to be dark red in color. No BM this shift. 20 G peripheral IV in the LT AC is patent and SL. B/P has been slightly low today, but all other VS are stable. Bed safety alarm is on. Call light within reach. Will continue to monitor.
[2020-04-08 20:00] VITALS: BP 111/56; PULSE 69; RESP 16; TEMP 36.7; O2SAT 100
[2020-04-08 20:53] LABS: Basophils # 0.1 K/mm3 (0-0.2); Basophils % 0.4 % (0.1-2.0); Eosinophils # 0.3 K/mm3 (0.0-0.4); Eosinophils % 2.1 % (0.1-12.0); Lymphocytes # 2.9 K/mm3 (0.7-4.5); Lymphocytes % 21.5 % (10-50); Mean Corpuscular HGB Conc 34.3 g/dL (31.8-35.4); Mean Corpuscular Hemoglobin 32.8 pg (27.0-31.2); Mean Corpuscular Volume 95.7 fl (81-99); Mean Platelet Volume 9.2 fl (7.4-10.4); Monocytes # 0.7 K/mm3 (0.1-1.0); Monocytes % 4.9 % (1.7-9.3); Neutrophils # 9.6 K/mm3 (1.8-7.8); Neutrophils % 71.1 % (37.0-80.0); Platelet Count 197 K/mm3 (142-424); Red Blood Count 2.75 M/mm3 (4.20-5.40); White Blood Count 13.4 K/mm3 (4.8-10.8)
[2020-04-08 20:56] LABS: Hematocrit 26.3 % (37.0-47.0)
[2020-04-09] VITALS (16 sets, daily range): BP systolic 107–157; BP diastolic 61–89; PULSE 60–93; RESP 16–20; TEMP 36.7–37.3; O2SAT 94–98; BMI 24.8
--- NOTE | 2020-04-09 01:23 | PC.NURSE ---
Addendum entered by Maliha Toribio RN 04/09/20 01:27: correction, 250 mL collected after irrigation not 500 mL Original Note: pt complained of urge to urinate, output in bag was dorene blood, saline flush used to irrigate catheter, large clots present, approximately 500 mL collected after irrigation
--- NOTE | 2020-04-09 03:39 | PC.NURSE ---
YAMINI from [place] called YAMINI Fleming for update on pt at this time.
[2020-04-09 06:15] LABS: Basophils # 0.1 K/mm3 (0-0.2); Basophils % 0.6 % (0.1-2.0); Eosinophils # 0.5 K/mm3 (0.0-0.4); Eosinophils % 4.6 % (0.1-12.0); Hematocrit 25.5 % (37.0-47.0); Hemoglobin 8.4 g/dL (12.2-16.2); Lymphocytes # 2.4 K/mm3 (0.7-4.5); Lymphocytes % 23.8 % (10-50); Mean Corpuscular Hemoglobin 32.1 pg (27.0-31.2); Mean Corpuscular Volume 97.2 fl (81-99); Mean Platelet Volume 8.7 fl (7.4-10.4); Monocytes # 0.5 K/mm3 (0.1-1.0); Monocytes % 5.3 % (1.7-9.3); Neutrophils # 6.5 K/mm3 (1.8-7.8); Neutrophils % 65.8 % (37.0-80.0); Platelet Count 192 K/mm3 (142-424); Red Blood Count 2.63 M/mm3 (4.20-5.40); Red Cell Distribution Width 13.8 % (11.5-17.5); White Blood Count 9.9 K/mm3 (4.8-10.8)
[2020-04-09 06:28] LABS: Chloride 114 mmol/L (98-107); Potassium 3.5 mmoL/L (3.5-5.1); Sodium 143 mmol/L (136-145)
[2020-04-09 06:31] LABS: Anion Gap 9.5 mEq/L (5-15); Blood Urea Nitrogen 16 mg/dl (7-17); Calcium 8.8 mg/dl (8.4-10.2); Carbon Dioxide 23 mmol/L (22.0-30.0); Creatinine Clearance Estimated 55 mL/min (50-200); Estimated Glomerular Filt Rate 82 ml/min (>60); GFR (African American) 99 ML/MIN (>60); Glucose 90 mg/dl (74-100)
--- NOTE | 2020-04-09 09:25 | HMH.ACPN2 ---
Internal Medicine - PN: Subj *Date: 04/09/20 *Time: 08:30 Interval history: pt states she states she is feeling bad. still having bloody urine. Exam Vital signs and Labs for Last 24 Hours: Temp Pulse Resp BP Pulse Ox 98.4 F 64 20 126/65 96 04/09/20 07:29 04/09/20 07:29 04/09/20 07:29 04/09/20 07:29 04/09/20 07:29 Laboratory Results - last 24 hr 04/08/20 20:40: WBC 13.4 H, RBC 2.75 L, Hgb 9.0 L, Hct 26.3 L, MCV 95.7, MCH 32.8 H, MCHC 34.3, RDW 14.0, Plt Count 197, MPV 9.2, Neut % (Auto) 71.1, Lymph % (Auto) 21.5, [place] % (Auto) 4.9, Eos % (Auto) 2.1, Baso % (Auto) 0.4, Neut # (Auto) 9.6 H, Lymph # (Auto) 2.9, [place] # (Auto) 0.7, Eos # (Auto) 0.3, Baso # (Auto) 0.1 04/09/20 05:51: WBC 9.9 D, RBC 2.63 L, Hgb 8.4 L, Hct 25.5 L, MCV 97.2, MCH 32.1 H, MCHC 33.0, RDW 13.8, Plt Count 192, MPV 8.7, Neut % (Auto) 65.8, Lymph % (Auto) 23.8, [place] % (Auto) 5.3, Eos % (Auto) 4.6, Baso % (Auto) 0.6, Neut # (Auto) 6.5, Lymph # (Auto) 2.4, [place] # (Auto) 0.5, Eos # (Auto) 0.5 H, Baso # (Auto) 0.1 04/09/20 05:51: Sodium 143, Potassium 3.5, Chloride 114 H, Carbon Dioxide 23, Anion Gap 9.5, BUN 16, Creatinine 0.70 D, Estimated Creat Clear 55, Estimated GFR 82, Est GFR ( Amer) 99 D, Glucose 90, Calcium 8.8 I & O for Last 24 hours: Intake & Output 04/06/20 04/07/20 04/08/20 04/09/20 11:59 11:59 11:59 11:59 Intake Total 1220 / 1220 1396 / 1396 Output Total 600 / 600 1220 / 1220 Balance 620 / 620 176 / 176 Weight 150 lb 153 lb 2 oz 154 lb 9 oz Microbiology Reports for the Last 24 Hours: Microbiology 04/07/20 10:12 Urine,Catheterized Urine Culture - Preliminary NO GROWTH AFTER 24 HOURS - Constitutional no acute distress, chronically ill appearing - *Routine HEENT Exam Head: Present: normocephalic Eye: Present: PERRL ENT: Present: mucous membranes moist - *Routine Neck Exam Present: supple. Absent: lymphadenopathy - *Routine Respiratory Exam Present: CTA bilaterally - *Routine Cardiovascular Exam Present: RRR - *Routine Abdominal Exam Present: soft, normoactive bowel sounds, tenderness - *Routine Exam Comments: aponte at bedside draining bloody urine - *Routine Extremities Exam Present: normal capillary refill. Absent: cyanosis, clubbing, edema - *Routine Skin Exam Present: warm. Absent: rash - *Routine Neurological Exam Present: alert, oriented X3 - Routine Psychiatric Exam Present: normal affect Assessment and Plan (1) Hematuria Current visit: Yes Status: Acute Qualifiers: Hematuria type: gross Qualified Code(s): R31.0 - Gross hematuria Category: Medical Code(s): R31.9 - Hematuria, unspecified (2) Urinary tract infection Current visit: Yes Status: Acute Qualifiers: Urinary tract infection type: acute cystitis Hematuria presence: with hematuria Qualified Code(s): N30.01 - Acute cystitis with hematuria Category: Medical Code(s): N39.0 - Urinary tract infection, site not specified (3) Diverticulosis Current visit: No Status: Chronic Category: Medical Code(s): K57.90 - Diverticulosis of intestine, part unspecified, without perforation or abscess without bleeding (4) Anemia Current visit: Yes Status: Acute Qualifiers: Anemia type: unspecified type Qualified Code(s): D64.9 - Anemia, unspecified Category: Medical Code(s): D64.9 - Anemia, unspecified (5) Emphysematous cystitis Current visit: Yes Status: Acute Category: Medical Code(s): N30.80 - Other cystitis without hematuria (6) REED (acute kidney injury) Current visit: Yes Status: Acute Category: Medical Code(s): N17.9 - Acute kidney failure, unspecified - Assessment and plan all Dx Assessment and Plan for all problems:: rounded with dr llamas all orders per farhad
--- NOTE | 2020-04-09 10:12 | PC.NURSE ---
Dr. Stafford here to see pt and ordered to place a 22 czech cath to cbi, and cefdinir 300 mg po bid. Have called to verify that he wants iv rocephin d/cd at approx 1000, awaiting cb at this time, spoke with lili.
--- NOTE | 2020-04-09 16:37 | HMH.CONS ---
*Admission Date: 04/08/20 *Reason for consult:: Gross hematuria *History of present illness: Patient is a 74-year-old white female referred by Dr. Pineda for gross hematuria. Patient presented to the hospital on April 07 for the complaint of gross hematuria. States some intermittent abdominal discomfort and was started on Levaquin April 06 for urinary tract infection. Patient admitted for further assessment. She is a resident of [facility]. Her urinalysis did show 3+ leukocyte esterase 3+ bacteria blood culture reported as negative that 2 days. If she was started on an antibiotic the day before this potentially be the cause for negative culture. Patient's white count was 17.9 thousand and her creatinine is 1.4 on admission. These have normalized. CT scan was performed at her admission there is a 2 cm gallstone as well as bilateral adrenal adenomas. There is mild bilateral hydronephrosis and hydroureter. Mccoy catheter was present at the time. There was some mild thickening of the urinary bladder wall. Patient is a reasonable historian. There is no other family members in the room at the time of exam examination. [facility] History Medical History: Reports:: Aneurysm, Anxiety, Cancer, Chronic Obstructive Pulmonary Disease (COPD), Coronary Artery Disease, Dementia, Depression, Hypertension, Migraine, Urinary Tract Infection Denies:: Diabetes Mellitus Type 1, Diabetes Mellitus Type 2, Internal Pacemaker, MRSA, Seizures *Have you ever received a pneumonia vaccine?: Yes *Have you received a flu vaccine this season?: Yes Other Medical History: Reports: Anemia, Arthritis, Sinus Problems, Other (bipolar) Laterality Cases: Bilateral: ACL Repair, Total Hip Replacement Other Surgeries: Yes: Appendectomy, Cardiac Catheterization, Colonoscopy, Colon Resection, Coronary Stent, Hysterectomy-Total, Other (rt hip replacement). No: Pacemaker Amputation: No Fractures: No - *Social History Last grade of school completed: 11th or 12th Smoking Status: Never smoker Tobacco Type: cigarettes # Packs/Day (cigarettes): 1 #Yrs smoked (if former smoker): 60 Alcohol Intake: never Alcohol Intake Frequency:: other Substance Use Type: denies use *Occupational Status:: disabled Housing: residential Household Members: other *Travel in the last 8 weeks: None - Psychiatric History Pschychiatric History:: Reports:: Anxiety, Depression Family Hx:: Heart Attack, Hypertension Review of Systems - Review of Systems Review of systems:: pertinent systems reviewed and negative unless documented below - *Neurologic Denies abnormal hearing, Denies behavioral changes, Denies dizziness Meds Home Medications Medication Instructions Recorded Confirmed Type Multivitamin [Multi-Vitamin Plain] 1 each PO DAILY 01/04/19 04/07/20 History Hydrocodone/Acetaminophen [[place] 1 each PO Q6HP PRN #60 tab 01/14/19 04/07/20 Rx 5-325 Tablet] Bethanechol Chloride [Urecholine 10 mg PO TID 01/27/19 04/07/20 History 10mg tablet] docusate sodium 100 mg capsule 250 mg PO DAILY cap 01/02/20 04/07/20 History donepezil 10 mg tablet 10 mg PO DAILY tab 01/02/20 04/07/20 History gabapentin 400 mg capsule 400 mg PO TID cap 01/02/20 04/07/20 History ibuprofen 400 mg tablet 400 mg PO Q6H PRN tab 01/02/20 04/07/20 History citalopram 20 mg tablet 20 mg PO DAILY tab 01/18/20 04/08/20 History memantine 10 mg tablet 10 mg PO BID tab 01/18/20 04/07/20 History Atorvastatin Calcium [Atorvastatin 40 mg PO HS 01/24/20 04/07/20 History 40mg Tab] Ticagrelor [Brilinta 90mg Tablet] 90 mg PO BID 01/24/20 04/07/20 History ramipriL [Altace 5mg capsule] 5 mg PO DAILY 01/24/20 04/07/20 History acetaminophen 500 mg tablet 500 mg PO TIDP PRN 02/29/20 04/08/20 History Aspirin [Aspirin 81mg chewable 81 mg PO DAILY 04/07/20 04/07/20 History tab] Cyanocobalamin (Vitamin B-12) 1,000 mcg PO DAILY 04/07/20 04/07/20 History [Vitamin B-12 1000mcg Tablet] Guaifenesin/Dextromethorphan 10 ml PO Q
[2020-04-09 17:10] LABS: Hematocrit 31.6 % (37.0-47.0)
[2020-04-09 17:17] LABS: Hemoglobin 11.2 g/dL (12.2-16.2)
--- NOTE | 2020-04-09 19:53 | PC.NURSE ---
Spoke with PARMINDER, and YAMINI romero did as well and she did give permission for pt to have unit of blood. Pt has required ativan x 1. Cont bladder irrigation continues at this time. Have noted some lg clots. CB in reach. Pt was alert more this am, but has became more confused this evening. Has required redirection. Bed alarm on for safety purposes.
[2020-04-10] VITALS: BP 121/81; PULSE 69; RESP 16; TEMP 36.9; O2SAT 100
--- NOTE | 2020-04-10 03:02 | PC.NURSE ---
A&O TO NAME, BIRTHDAY, AND YEAR. PT HAS TOLERATED ROOM AIR WELL THROUGHOUT SHIFT. RESPIRATIONS REGULAR AND UNLABORED. LUNG SOUNDS BILATERALLY CLEAR. NO COUGH NOTED. HAND MARBLE SUPERVISOR EQUAL. REGULAR HEART RATE. +2 PULSES NOTED THROUGHOUT. NO EDEMA NOTED. ACTIVE BOWEL SOUNDS HEARD IN ALL 4 QUADRANTS. SOFT NONTENDER ABDOMEN. 2 SOFT BM NOTED THIS SHIFT. NO REPORTS OF PAIN THUS FAR. CONTINUOUS BLADDER IRRIGATION NOTED. NO KINKS NOTED. GARZA WAS CLOGGED AT BEGINNING OF SHIFT. GARZA HAD TO BE CHANGED FROM 22FR TO 26FR, PT TOLERATED WELL. SINCE THEN URINE IS FLOWING BETTER AND STAYING CLEAR TO LIGHT PINK. WILL CONTINUE TO MONITOR. STRICT I&O IN PLACE WITH THAT. NO KINKS NOTED. SMALL BLOOD CLOTS PASSED AT BEGINNING OF SHIFT AND SMALL PARTICLES NOTED SINCE THEN. PT HAS PULLED OUT IV TWICE THIS SHIFT AND A NEW WAS WAS INSERTED EACH TIME. TOLERATED WELL. NS INFUSING AT 100ML/HR. BED ALARM IN PLACE TO PROMOTE SAFETY. PT MOVES INDEPENDENTLY IN BED. PT IS CURRENTLY RESTING IN BED WITH CALL LIGHT WITHIN REACH. BED IN LOWEST POSITION. VSS. NO CONCERNS AT THIS TIME. WILL CONTINUE TO MONITOR.
[2020-04-10 03:42] VITALS: BP 142/72; PULSE 69; RESP 16; TEMP 36.9; O2SAT 96
[2020-04-10 05:00] VITALS: BMI 25.7
[2020-04-10 07:43] LABS: Basophils # 0.1 K/mm3 (0-0.2); Basophils % 0.8 % (0.1-2.0); Eosinophils # 0.5 K/mm3 (0.0-0.4); Eosinophils % 4.5 % (0.1-12.0); Lymphocytes # 2.1 K/mm3 (0.7-4.5); Mean Corpuscular HGB Conc 32.5 g/dL (31.8-35.4); Mean Corpuscular Hemoglobin 30.8 pg (27.0-31.2); Mean Corpuscular Volume 94.9 fl (81-99); Mean Platelet Volume 8.5 fl (7.4-10.4); Monocytes # 0.5 K/mm3 (0.1-1.0); Monocytes % 4.6 % (1.7-9.3); Neutrophils % 69.1 % (37.0-80.0); Platelet Count 208 K/mm3 (142-424); Red Blood Count 3.17 M/mm3 (4.20-5.40); Red Cell Distribution Width 15.3 % (11.5-17.5); White Blood Count 10.1 K/mm3 (4.8-10.8)
[2020-04-10 07:44] LABS: Hemoglobin 9.8 g/dL (12.2-16.2)
[2020-04-10 08:00] VITALS: BP 121/74; PULSE 63; RESP 18; TEMP 36.7; O2SAT 99
[2020-04-10 08:07] LABS: Chloride 114 mmol/L (98-107); Sodium 142 mmol/L (136-145)
[2020-04-10 08:08] LABS: Potassium 3.5 mmoL/L (3.5-5.1)
[2020-04-10 08:10] LABS: Blood Urea Nitrogen 11 mg/dl (7-17); Creatinine Clearance Estimated 57 mL/min (50-200); Estimated Glomerular Filt Rate 98 ml/min (>60); GFR (African American) 118 ML/MIN (>60)
[2020-04-10 08:11] LABS: Anion Gap 9.5 mEq/L (5-15); Calcium 8.5 mg/dl (8.4-10.2); Carbon Dioxide 22 mmol/L (22.0-30.0); Glucose 82 mg/dl (74-100)
--- NOTE | 2020-04-10 08:48 | HMH.ACPN2 ---
Internal Medicine - PN: Subj *Date: 04/10/20 *Time: 09:23 Interval history: 74-year-old female patient resting quietly in bed, awakens easily to verbal stimuli. She reports she does feel a little bit worse today, she is more tired and refusing to eat breakfast. She was reminded of importance of nourishment. Urology seen yesterday and a three-way Mccoy was started, urine is pale yellow this morning with no visible evidence of hematuria. Cefdinir p.o. was suggested and started Exam Vital signs and Labs for Last 24 Hours: Temp Pulse Resp BP Pulse Ox 98.1 F 63 18 121/74 99 04/10/20 08:00 04/10/20 08:00 04/10/20 08:00 04/10/20 08:00 04/10/20 08:00 Laboratory Results - last 24 hr 04/07/20 11:00: Blood Type O Positive, Antibody Screen Negative, Crossmatch (AHG) See Detail 04/09/20 12:17: Blood Type Confirm O Positive 04/09/20 17:00: Hgb 11.2 L D, Hct 31.6 L 04/10/20 06:50: WBC 10.1, RBC 3.17 L, Hgb 9.8 L D, Hct 30.0 L, MCV 94.9, MCH 30.8, MCHC 32.5, RDW 15.3, Plt Count 208, MPV 8.5, Neut % (Auto) 69.1, Lymph % (Auto) 21.0, [place] % (Auto) 4.6, Eos % (Auto) 4.5, Baso % (Auto) 0.8, Neut # (Auto) 7.0, Lymph # (Auto) 2.1, [place] # (Auto) 0.5, Eos # (Auto) 0.5 H, Baso # (Auto) 0.1 04/10/20 06:50: Sodium 142, Potassium 3.5, Chloride 114 H, Carbon Dioxide 22, Anion Gap 9.5, BUN 11 D, Creatinine 0.60, Estimated Creat Clear 57, Estimated GFR 98, Est GFR ( Amer) 118, Glucose 82, Calcium 8.5 I & O for Last 24 hours: Intake & Output 04/07/20 04/08/20 04/09/20 04/10/20 23:59 23:59 23:59 23:59 Intake Total 0 / 0 1680 / 1680 1706 / 1706 2825 / 2825 Output Total 1200 / 1220 620 / 620 4350 / 4350 Balance 0 / 0 480 / 460 1086 / 1086 -1525 / -1525 Weight 153 lb 2 oz 154 lb 9 oz 160 lb 7 oz Microbiology Reports for the Last 24 Hours: Microbiology 04/07/20 11:00 Blood Blood Culture - Preliminary NO GROWTH AFTER 48 HOURS 04/07/20 11:00 Blood Blood Culture - Preliminary NO GROWTH AFTER 48 HOURS 04/07/20 10:12 Urine,Catheterized Urine Culture - Final NO GROWTH AFTER 48 HOURS - Constitutional no acute distress - *Routine HEENT Exam Head: Present: normocephalic ENT: Present: mucous membranes dry - *Routine Neck Exam Present: trachea midline. Absent: JVD, tracheal deviation - *Routine Respiratory Exam Present: CTA bilaterally. Absent: accessory muscle use - *Routine Cardiovascular Exam Present: RRR - *Routine Abdominal Exam Present: soft, normoactive bowel sounds. Absent: tenderness, firm - *Routine Extremities Exam Present: pulses intact. Absent: calf tenderness - *Routine Skin Exam Present: intact, warm. Absent: erythema - *Routine Neurological Exam Present: alert, oriented X3 - Routine Psychiatric Exam Present: normal affect Assessment and Plan (1) Hematuria Current visit: Yes Status: Acute Qualifiers: Hematuria type: gross Qualified Code(s): R31.0 - Gross hematuria Category: Medical Code(s): R31.9 - Hematuria, unspecified (2) Urinary tract infection Current visit: Yes Status: Acute Qualifiers: Urinary tract infection type: acute cystitis Hematuria presence: with hematuria Qualified Code(s): N30.01 - Acute cystitis with hematuria Category: Medical Code(s): N39.0 - Urinary tract infection, site not specified (3) Diverticulosis Current visit: No Status: Chronic Category: Medical Code(s): K57.90 - Diverticulosis of intestine, part unspecified, without perforation or abscess without bleeding (4) Anemia Current visit: Yes Status: Acute Qualifiers: Anemia type: unspecified type Qualified Code(s): D64.9 - Anemia, unspecified Category: Medical Code(s): D64.9 - Anemia, unspecified (5) Emphysematous cystitis Current visit: Yes Status: Acute Category: Medical Code(s): N30.80 - Other cystitis without hematuria (6) REED
--- NOTE | 2020-04-10 09:19 | SW/DCPLANNER ---
Addendum entered by Symone Weaver 04/11/20 14:02: Patient is NEGATIVE and will discharge back to [facility] today. Addendum entered by Symone Weaver 04/11/20 10:29: I have informed Zoila that pending negative COVID results this patient will discharge back today. Original Note: This patient currently resides at [facility]. I have spoke with Zoila at [facility] and she has stated this patient is ICF level of care. I will continue to follow up with Zoila until patient is ready for discharge.
--- OUTSIDE RECORDS SUMMARY | 2020-04-10 12:09 | XMS_ITS | Continuity of Care Document ---
:1945 Author Organization [facility] Address [address] [facility] Phone Care Team Providers Name Role Phone Katerine Pineda Primary Care Provider Black Attending Provider Pop Attending Provider Pop Primary Care Provider Katerine Pineda Attending Provider Rowell-Fearis Attending Provider Pavharshil Attending Provider Fryman Attending Provider PCP Primary Care Provider Unavailable Nydia Attending Provider Allergies, Adverse Reactions, Alerts Allergen Type Severity Reaction Last Verified Status Updated diphtheria Allergy Unknown Unknown April 07, Yes Active toxoid,fluid allergy 2019
--- NOTE | 2020-04-10 12:57 | HMH.CONFU ---
Internal Medicine - PN: Subj *Date: 04/10/20 *Time: 12:57 Interval history: Patient denies any problems overnight. Her urine is clear on the minimal continuous bladder irrigation. Nursing staff did hand irrigate some clots out overnight. Exam Vital signs and Labs for Last 24 Hours: Temp Pulse Resp BP Pulse Ox 98.1 F 63 18 121/74 99 04/10/20 08:00 04/10/20 08:00 04/10/20 08:00 04/10/20 08:00 04/10/20 08:00 Laboratory Results - last 24 hr 04/07/20 11:00: Blood Type O Positive, Antibody Screen Negative, Crossmatch (AHG) See Detail 04/09/20 17:00: Hgb 11.2 L D, Hct 31.6 L 04/10/20 06:50: WBC 10.1, RBC 3.17 L, Hgb 9.8 L D, Hct 30.0 L, MCV 94.9, MCH 30.8, MCHC 32.5, RDW 15.3, Plt Count 208, MPV 8.5, Neut % (Auto) 69.1, Lymph % (Auto) 21.0, [place] % (Auto) 4.6, Eos % (Auto) 4.5, Baso % (Auto) 0.8, Neut # (Auto) 7.0, Lymph # (Auto) 2.1, [place] # (Auto) 0.5, Eos # (Auto) 0.5 H, Baso # (Auto) 0.1 04/10/20 06:50: Sodium 142, Potassium 3.5, Chloride 114 H, Carbon Dioxide 22, Anion Gap 9.5, BUN 11 D, Creatinine 0.60, Estimated Creat Clear 57, Estimated GFR 98, Est GFR ( Amer) 118, Glucose 82, Calcium 8.5 I & O for Last 24 hours: Intake & Output 04/07/20 04/08/20 04/09/20 04/10/20 23:59 23:59 23:59 23:59 Intake Total 0 / 0 1680 / 1680 1706 / 1706 2825 / 2825 Output Total 1200 / 1220 620 / 620 4350 / 4350 Balance 0 / 0 480 / 460 1086 / 1086 -1525 / -1525 Weight 69.456 kg 70.108 kg 72.773 kg Microbiology Reports for the Last 24 Hours: Microbiology 04/07/20 11:00 Blood Blood Culture - Preliminary NO GROWTH AFTER 48 HOURS 04/07/20 11:00 Blood Blood Culture - Preliminary NO GROWTH AFTER 48 HOURS 04/07/20 10:12 Urine,Catheterized Urine Culture - Final NO GROWTH AFTER 48 HOURS Narrative: Well-nourished white female no apparent distress Pupils equal round react light Head is normocephalic Neck is symmetric Normal respiratory effort Abdomen soft nondistended Assessment and Plan (1) Hematuria Current visit: Yes Status: Acute Qualifiers: Hematuria type: gross Qualified Code(s): R31.0 - Gross hematuria Category: Medical Code(s): R31.9 - Hematuria, unspecified Urine has cleared on the continuous bladder irrigation and irrigation of clots from the bladder. Likely source is cystitis from a bacterial infection. Recent urinalysis consistent with an infection but the culture was negative. This may have been because she reportedly was started on an antibiotic the day before she resented to the hospital. We are going to stop the bladder irrigation today and her Mccoy catheter may be removed prior to discharge if it remains clear to pink. She should continue a week of the cefdinir. I will plan on seeing her back in a week or 2 for recheck of her urine. (2) Urinary tract infection Current visit: Yes Status: Acute Qualifiers: Urinary tract infection type: acute cystitis Hematuria presence: with hematuria Qualified Code(s): N30.01 - Acute cystitis with hematuria Category: Medical Code(s): N39.0 - Urinary tract infection, site not specified (3) Diverticulosis Current visit: No Status: Chronic Category: Medical Code(s): K57.90 - Diverticulosis of intestine, part unspecified, without perforation or abscess without bleeding (4) Anemia Current visit: Yes Status: Acute Qualifiers: Anemia type: unspecified type Qualified Code(s): D64.9 - Anemia, unspecified Category: Medical Code(s): D64.9 - Anemia, unspecified (5) Emphysematous cystitis Current visit: Yes Status: Acute Category: Medical Code(s): N30.80 - Other cystitis without hematuria (6) REED (acute kidney injury) Current visit: Yes Status: Acute Category: Medical Code(s): N17.9 - Acute kidney failure, unspecified
[2020-04-10 15:37] VITALS: BP 101/69; PULSE 60; RESP 17; TEMP 37.3; O2SAT 93
--- NOTE | 2020-04-10 19:46 | PC.NURSE ---
Pt has been pleasent this shift with intermittent confusion episodes. CB in reach. No c/o at this time. Dr. Stafford did see pt and order to stop CBI and plug third port. Urine has been pink tinged, Dr Stafford aware of this. NAD. VSS.
[2020-04-10 20:00] VITALS: BP 108/66; PULSE 61; RESP 16; TEMP 37; O2SAT 93; O2SAT 95
[2020-04-11 04:00] VITALS: BP 130/70; PULSE 60; RESP 18; TEMP 36.7; O2SAT 96
[2020-04-11 05:00] VITALS: BMI 25.4
--- NOTE | 2020-04-11 05:07 | PC.NURSE ---
Pt remains confused at times throughout the shift. Pt is alert to self. Pt will wake up and state she needs to go the BR. Pt c/o an urge to void multiple times. Mccoy irrigated at these times and small clots produced w/ subsequent relief of urge to void. Urine remains clear and yellow this shift. IV to right upper arm infiltrated, IV removed and arm elevated on pillow. New IV access established.
[2020-04-11 07:27] LABS: Basophils # 0.1 K/mm3 (0-0.2); Basophils % 0.5 % (0.1-2.0); Eosinophils # 0.4 K/mm3 (0.0-0.4); Eosinophils % 3.8 % (0.1-12.0); Hematocrit 30.6 % (37.0-47.0); Hemoglobin 10.1 g/dL (12.2-16.2); Lymphocytes # 2.6 K/mm3 (0.7-4.5); Lymphocytes % 22.3 % (10-50); Mean Corpuscular Hemoglobin 31.6 pg (27.0-31.2); Mean Corpuscular Volume 95.7 fl (81-99); Mean Platelet Volume 8.8 fl (7.4-10.4); Monocytes # 0.5 K/mm3 (0.1-1.0); Monocytes % 4.7 % (1.7-9.3); Neutrophils # 7.9 K/mm3 (1.8-7.8); Neutrophils % 68.7 % (37.0-80.0); Platelet Count 219 K/mm3 (142-424); Red Cell Distribution Width 15.2 % (11.5-17.5); White Blood Count 11.4 K/mm3 (4.8-10.8)
[2020-04-11 07:32] LABS: Chloride 111 mmol/L (98-107); Potassium 3.2 mmoL/L (3.5-5.1); Sodium 141 mmol/L (136-145)
[2020-04-11 07:35] LABS: Anion Gap 10.2 mEq/L (5-15); Blood Urea Nitrogen 9 mg/dl (7-17); Calcium 8.7 mg/dl (8.4-10.2); Carbon Dioxide 23 mmol/L (22.0-30.0); Creatinine Clearance Estimated 56 mL/min (50-200); Estimated Glomerular Filt Rate 98 ml/min (>60); GFR (African American) 118 ML/MIN (>60); Glucose 94 mg/dl (74-100)
[2020-04-11 08:00] VITALS: BP 157/75; PULSE 60; RESP 18; TEMP 36.9; O2SAT 100
--- NOTE | 2020-04-11 08:59 | HMH.DCSUM ---
General - General Admission date:: 04/09/20 Discharge date: 04/11/20 HPI HPI: 74-year-old female with a history of dementia, COPD presents the emergency department from [facility] due to hematuria found in depends this am at long term. She states that she has had a little pain in her abdomen, is not bothering her at this time, but has occasionally hurt and she has a history of urinary tract infections. She denies a history of kidney stones. She denies any nausea or vomiting. No known fevers. No other known symptoms or concerns at this time. Started On Levaquin yesterday for urinary tract infection per EMS. pt admitted for uti. Hospital Course Hospital Course: 74-year-old female patient resting quietly in bed she reports she does feel little better today. Mccoy is draining clear yellow urine. Discussed discharge back to [place] today, patient is agreeable to this. Patient with a history of dementia, COPD presented to the emergency department by EMS from [facility] with large amounts of blood found in depends at long term. She did complain of slight abdominal pain and she does have a history of UTIs. She denied nausea or vomiting, no fevers. She was started on Levaquin the day before for UTI per squad Urology seen and recommended a continuous bladder irrigation after Mccoy revealed large amounts of blood in urine. Bladder irrigation ran for approximately 24 hours urine clear to pale yellow urology has recommended moving Mccoy and seeing patient in office in 1 to 2 weeks. Urine culture came back negative, urology believes this is possibly being started on antibiotic prior to being admitted to hospital recommended continuing with antibiotic for 7 days During her stay patient hemoglobin was 8 4 she did receive 1 unit of packed blood cells currently H/H 10.1/30.6, no other visible signs of bleeding noted. On admission BUN 34 and creatinine 1.4 after fluids BUN currently 9 and creatinine 0.[address] 04/05/20: FINDINGS: No midline shift, mass effect, intracranial hemorrhage, hydrocephalus, or extra-axial fluid collection is evident. There is generalized atrophy with hypoattenuation of the periventricular white matter consistent with microangiopathic changes.. Carotid stent is present in the cavernous and suprasellar portion of the right ICA. Skin clips are present in the vertex region of the scalp posteriorly. The calvarium has an unremarkable appearance. No mastoid effusion. No sinus air-fluid level. IMPRESSION: No acute intracranial finding Dictated b Truong Abd/Pelvic CT 04/07/20: IMPRESSION: 1. Urinary bladder has an abnormal appearance with heterogeneous areas of increased density consistent with blood within the urinary bladder. The wall of the urinary bladder is slightly thickened with some gas along or within the wall anteriorly raising the suspicion for emphysematous cystitis. A Mccoy catheter is present. There is mild dilatation of the renal collecting system on both sides. 2. Diffuse colonic diverticulosis without diverticulitis. 3. Bilateral enlarged adrenal glands not significantly changed Dictated b Alexi, Chest x-ray is normal no acute findings 1. Continue cefdinir 300 mg twice daily x5 days 2. We will discharge back to [place] today 3. Follow-up with urology in 1 to 2 weeks Objective Vital signs: Temp Pulse Resp BP Pulse Ox 98.4 F 60 18 157/75 H 100 04/11/20 08:00 04/11/20 08:00 04/11/20 08:00 04/11/20 08:00 04/11/20 08:00 no acute distress - *Routine HEENT Exam Head: Present: normocephalic. Absent: tenderness of temporal artery ENT: Present: mucous membranes moist. Absent: sinus tenderness - *Routine Neck Exam Present: trachea midline. Absent: JVD, tracheal deviation - *Routine Respiratory Exam Present: CTA bilaterally. Absent: accessory muscle use - *Routine Cardiovascular Exam Present: RRR - *Routin
--- NOTE | 2020-04-11 09:06 | PC.NURSE ---
KAYLA SIMS DC'D @ 0890 PER ORDERS. PT THEN ASSISTED W/ AMBULATION IN ROOM AND IS CURRENTLY SITTING UP TO CHAIR. PT TOLERATED ACTIVITY WELL. SAFETY IN PLACE, CALL LESLIE W/IN REACH.
--- NOTE | 2020-04-11 10:36 | HMH.PTEV ---
Physical Therapy Evaluation Rehab PT IP Evaluation Start: 04/11/20 08:55 Freq: ONCE Status: Active Protocol: Document 04/11/20 10:33 PWLEELA (Rec: 04/11/20 10:36 PWLEELA [id number]) Subjective/History History History This is the initial IP PT evaluation for Mary Bae . Pt was admitted to [facility] thru ER from SNF in [place]. Pt was briought to ER due to large amount of hematuria in depends brief. Subjective Subjective no complaints from pt Rehab PT IP Eval Objective Appearance Patient Behavior Appropriate,Cooperative Patient Orientation Person,Place,Year Difficulty following instructions none Speech Pattern Clear Ambulation Patient Able to Ambulate Yes Ambulation Observation IP General Gait Pattern Observation Shuffling Step Ambulation Distance (feet) 50 Ambulation Assistive Device None Ambulation Ability Contact Guard/Hand Hold Balance Ability to Arise Able, uses arms to help Sitting Balance Steady, safe Standing Balance Narrow stance w/o support Dynamic Sitting Balance Ability Good Dynamic Standing Balance Ability Fair Transfers Bed Transfer Ability Independent Chair Transfer Ability Independent Sit to Stand Bed Transfer Ability Independent Sit to Stand Chair Transfer Ability Independent Rehab PT IP prob,goals,plan Problems Date of Evaluation: 04/11/20 Rehab Potential Rehab Potential Innapropriate for Skilled Therapy Discharge Plan PT Discharge Plan Pt to be dc'd to [facility] home/PC appt. 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 G -code Required Yes Eval Complexity Eval Charge Codes 31653 - Low Complexity G Codes PT Current Status Mobility PT Current Status Modifier CI-At least 1% but less than 20% impaired, limited or restricted PT Goal Status Mobility PT Goal Status Modifer CI-At least 1% but less than 20% impaired, limited or restricted PHYSICIAN CERTIFICATION: I certify the specified therapy services for Mary Bae are required, authorized, and reviewed every 30 days.
[2020-04-11 10:55] LABS: POC Glucose,Bedside 97 (70-110)
--- NOTE | 2020-04-11 11:02 | HMH.OTEV ---
OT Inpatient Evaluation Rehab OT IP Evaluation Start: 04/11/20 08:57 Freq: ONCE Status: Complete Protocol: Document 04/11/20 10:02 SANTIAGO (Rec: 04/11/20 10:05 SANTIAGO [id number]) Rehab OT IP Assessment Subjective History 74 year old female presented to ER by EMS from [facility] on 04/09/20 2* large amount of hematuria found in depends. Finding were: hematuria and UTI with antibiotics provided for the next 7 days. Patient possibly being d/c this date back to [facility]. Aneurysm, Anxiety, Cancer , Chronic Obstructive Pulmonary Disease (COPD), Coronary Artery Disease, Dementia, Depression, Hypertension, Migraine, Urinary Tract Infection. Subjective I'm feeling pretty good today . Objective Patient Orientation Person,Place,Name,Birthday, Year Upper Extremity Gross ROM WNL Transfer Training Sit/Stand Transfer Assist Level Supervision/Stand by Chair Transfer Technique Sit to/from Ambulatory Chair Transfer Assistive Devices Standard Walker Rehab OT IP prob,goals,plan Problems Date of Evaluation: 04/11/20 OT IP Problems Bed Mobility,Transfers,Balance ,Self care,Safety Rehab Potential Rehab Potential Good Equipment Needs Assistive Devices Standard Walker Plan OT intervention Plan Bed Mobility,Transfers,Balance ,Self care,Safety,Therapeutic Exercise OT Plan Frequency Daily Duration LOS Discharge Goals Bed Mobility Ability Standby Assistance Sit to Stand Chair Transfer Ability Independent Chair Transfer Ability Independent Chair Transfer Technique Sit to/from Ambulatory Chair Transfer Assistive Devices Rolling Walker Self care skills fully toilet trained Feeding Ability Assist with Tray Set Up Lower Body Dressing Ability Standby Assistance Upper Body Dressing Ability Standby Assistance Bathing Ability Standby Assistance Performing Toilet Hygiene Ability Standby Assistance Overall Commode/Toilet Transfer Ability Standby Assistance Commode/Toilet Transfer Technique Sit to/from Ambulatory Co
--- NOTE | 2020-04-11 12:01 | PC.NURSE ---
DETAILED REPORT CALLED TO BHUMI AT [facility]. STATES THEY WILL BE SENDING STAFF OVER W/ THE [facility] TO GET PT.
--- NOTE | 2020-04-11 13:43 | PC.NURSE ---
ATTEMPTED TO CONTACT PT'S DAUGHTER TO MAKE AWARE OF DC BACK TO [place].
--- NOTE | 2020-04-11 14:03 | PC.NURSE ---
PT'S COVID TEST IS NEGATIVE, [facility] NOTIFIED OF RESULTS AND WILL BE COMING TO GET PT.
== END 2020-04-11 14:30 | DRG 690 ==
LOC: ER 10:22 → 2ND 12:26
PROVIDERS: Nurse Practitioner Family; Admitting Provider Emergency Medicine; Emergency Provider Emergency Medicine; PCP Emergency Medicine; Visit Provider Emergency Medicine
DX: N30.01 Acute cystitis with hematuria (principal); N17.9 Acute kidney failure, unspecified; J44.9 Chronic obstructive pulmonary disease, unspecified; I25.10 Atherosclerotic heart disease of native coronary artery without angina pectoris; I10 Essential (primary) hypertension; Z95.5 Presence of coronary angioplasty implant and graft; K57.30 Diverticulosis of large intestine without perforation or abscess without bleeding; Z88.0 Allergy status to penicillin; Z88.2 Allergy status to sulfonamides; Z88.7 Allergy status to serum and vaccine; Z88.5 Allergy status to narcotic agent; Z79.899 Other long term (current) drug therapy; Z79.82 Long term (current) use of aspirin
CPT/HCPCS: 36415; 70450; 71045; 74177; 80048; 80053; 81001; 82962; 83605; 85007; 85014; 85018; 85025; 86850; 87040; 87086; 87581; 87633; 87798; 96365; 96367; 97161; 97165; 97530; 99285; G0378; J1335; P9016; Q9967; U0003

== ENCOUNTER 2020-04-13 06:32 | Observation (INO) | payer MEDICARE, MEDICAID, SELFPAY ==
[2020-04-13] VITALS (33 sets, daily range): BP systolic 91–130; BP diastolic 49–90; PULSE 55–82; RESP 12–18; TEMP 6.1–43; O2SAT 92–99; BMI 25.4; BMI 28.9
[2020-04-13 07:14] LABS: Microscopic, Urine URINE MICROSCOPIC (MICROSCOPIC)
[2020-04-13 07:15] LABS: Basophils # 0.1 K/mm3 (0-0.2); Basophils % 0.8 % (0.1-2.0); Eosinophils # 0.8 K/mm3 (0.0-0.4); Eosinophils % 6.7 % (0.1-12.0); Hemoglobin 9.7 g/dL (12.2-16.2); Lymphocytes # 2.3 K/mm3 (0.7-4.5); Lymphocytes % 19.9 % (10-50); Mean Corpuscular HGB Conc 33.4 g/dL (31.8-35.4); Mean Corpuscular Hemoglobin 32.1 pg (27.0-31.2); Mean Corpuscular Volume 96.3 fl (81-99); Mean Platelet Volume 8.4 fl (7.4-10.4); Monocytes # 0.5 K/mm3 (0.1-1.0); Monocytes % 4.4 % (1.7-9.3); Neutrophils # 7.8 K/mm3 (1.8-7.8); Neutrophils % 68.3 % (37.0-80.0); Platelet Count 285 K/mm3 (142-424); Red Blood Count 3.01 M/mm3 (4.20-5.40); Red Cell Distribution Width 15.3 % (11.5-17.5); White Blood Count 11.5 K/mm3 (4.8-10.8)
--- NOTE | 2020-04-13 07:19 | HMH.EDUROGF ---
ED Disposition Clinical Impression: Hematuria Qualifiers: Hematuria type: gross Qualified Code(s): R31.0 - Gross hematuria Anemia Qualifiers: Anemia type: unspecified type Qualified Code(s): D64.9 - Anemia, unspecified Disposition: Admitted as Observation Condition on Discharge: Fair Instructions: DI for Urinary Tract Infection (UTI), DI for Urinary Tract Infection in Children Referrals: Dom Pineda MD [Primary Care Provider] - - Critical Care Critical Care Time: No Attestation: On 04/13/20, the high probability of a clinically significant, sudden or life threatening deterioration of the following system(s) required my full and direct attention, intervention and personal management. The time I documented below is in addition to time spent performing reported procedures but includes the following listed in this critical care notation. Medical Decision Making - Medical Records Medical records reviewed: Yes: I reviewed the patient's medical records. - Nico Inquiry Pt receiving controlled substance: No Vital Signs: 04/13/20 06:30 04/13/20 07:00 Temperature 97.7 F Temperature Source Oral Pulse Rate [Left Radial] 66 60 Respiratory Rate 16 18 Blood Pressure [Right Arm] 104/62 L 98/65 L Blood Pressure Mean [Right Arm] 76 76 Blood Pressure Source [Right Arm] Automatic Cuff Automatic Cuff Blood Pressure Position [Right Arm] Sitting Supine 02 Sat by Pulse Oximetry 98 98 Oxygen Delivery Method Room Air Room Air - Lab Data Lab results reviewed: Yes: I reviewed the patient's lab results. Lab Results 04/13/20 07:02: WBC 11.5 H, RBC 3.01 L, Hgb 9.7 L, Hct 29.0 L, MCV 96.3, MCH 32.1 H, MCHC 33.4, RDW 15.3, Plt Count 285 D, MPV 8.4, Neut % (Auto) 68.3, Lymph % (Auto) 19.9, [place] % (Auto) 4.4, Eos % (Auto) 6.7, Baso % (Auto) 0.8, Neut # (Auto) 7.8, Lymph # (Auto) 2.3, [place] # (Auto) 0.5, Eos # (Auto) 0.8 H, Baso # (Auto) 0.1 04/13/20 07:02: Sodium 143, Potassium 3.0 L, Chloride 113 H, Carbon Dioxide 22, Anion Gap 11.0, BUN 9, Creatinine 0.70, Estimated Creat Clear 56, Estimated GFR 82, Est GFR ( Amer) 99, Glucose 98, Calcium 8.9, Total Bilirubin 0.3, AST 33, ALT 19, Alkaline Phosphatase 96, C-Reactive Protein 7.1 H, Total Protein 5.8 L, Albumin 3.3 L, Globulin 2.5, Albumin/Globulin Ratio 1.3 04/13/20 07:10: Urine Color Red, Urine Appearance Cloudy, Urine pH 7.0, Ur Specific [place] 1.020, Urine Protein 3+, Urine Glucose (UA) Negative, Urine Ketones Negative, Urine Blood 3+, Urine Nitrate Positive, Urine Bilirubin Negative, Urine Urobilinogen 1.0, Ur Leukocyte Esterase Trace, Urine RBC Tntc, Urine WBC 20-50, Ur Squamous Epith Cells 10-20, Urine Bacteria 2+ Result diagrams: 04/13/20 07:02 04/13/20 07:02 Orders (Tests/Meds): ED MEDICATIONS Generic Name Dose Route Start Last Admin Trade Name Freq PRN Reason Stop Dose Admin Sodium Chloride 1,000 mls @ 100 mls/hr 04/13/20 07:30 04/13/20 07:27 Sod Chlor 0.9% 1000ml Bag IV 05/13/20 07:29 100 mls/hr .Q10H MANE Administration ORDERS Category Date Time Status Erythrocyte Sedimentation Rate Stat Lab 04/13/20 07:02 Received Full Resp Panel (COVID)(INPT) Routine Lab 04/13/20 07:36 Ordered Urine Culture Stat Micro 04/13/20 07:10 Received - Physician Consults Physician Consulted: nathaly Reason -: Pt condition Female Urogenital HPI - General Chief complaint: Urogenital-Female Stated complaint: blood in urine, passing large blood clots Time Seen by Provider: 04/13/20 07:00 Mode of Arrival: EMS Source of Information: Patient, EMS, Medical Record Limitations: No Limitations Description of Symptoms (Recalled from ER Triage Doc. by RN): per vivi report when staff went to change pt this morning they found her bed saturated in blood. pt nurse stated the pt was passing large clots on of which was the size of 3 fists. on arrival pt is alert and and oriented to self and place and complains of an aching feeling in her pelvis. - Histor
[2020-04-13 07:24] LABS: Appearance,Urine CLOUDY (Clear); Blood, Urine 3+ (Negative); Color,Urine RED (Yellow); Glucose,Urine (UA) Negative (Negative); Ketones,Urine Negative (Negative); Leukocyte Esterase,Urine TRACE (Negative); Nitrate,Urine POSITIVE (Negative); Protein,Urine 3+ (Negative)
[2020-04-13 07:25] LABS: Chloride 113 mmol/L (98-107); Sodium 143 mmol/L (136-145)
[2020-04-13 07:28] LABS: Alanine Aminotransferase 19 U/L (12-78); Albumin Level 3.3 g/dl (3.5-5.0); Albumin/Globulin Ratio 1.3 (1.1-1.8); Alkaline Phosphatase 96 U/L (38-126); Aspartate Amino Transferase 33 U/L (14-36); Bilirubin,Total 0.3 mg/dl (0.2-1.3); Blood Urea Nitrogen 9 mg/dl (7-17); Carbon Dioxide 22 mmol/L (22.0-30.0); Creatinine Clearance Estimated 56 mL/min (50-200); Estimated Glomerular Filt Rate 82 ml/min (>60); GFR (African American) 99 ML/MIN (>60); Globulin 2.5 g/dL (1.3-3.2); Total Protein,Serum 5.8 g/dl (6.3-8.2)
[2020-04-13 07:29] LABS: Calcium 8.9 mg/dl (8.4-10.2); Glucose 98 mg/dl (74-100)
[2020-04-13 07:29] LABS: Bilirubin,Urine Negative (Negative)
[2020-04-13 07:31] LABS: Bacteria,Urine 2+ /lpf; RBC,Urine TNTC #/hpf (0-3); WBC,Urine 20-50 #/hpf (0-3)
[2020-04-13 07:34] LABS: C-Reactive Protein 7.1 mg/L (0-4)
--- NOTE | 2020-04-13 07:46 | PC.NURSE ---
pt assigned to Room 200 per cleaner housekeeping admission information relayed to registration staff rochelle
--- NOTE | 2020-04-13 07:46 | PC.NURSE ---
lab at for covid swab for admission.
[2020-04-13 07:50] LABS: Adenovirus,PCR Not Detected (NotDetected); Bordetella Pertussis Not Detected (NotDetected); Chlamydophila Pneumoniae, PCR Not Detected (NotDetected); Coronavirus 19, PCR Not Detected (NotDetected); Coronavirus 229E Not Detected (NotDetected); Coronavirus NL63 Not Detected (NotDetected); Coronavirus OC43 Not Detected (NotDetected); Coronovirus HKU1,PCR Not Detected (NotDetected); Human Metapneumovirus Not Detected (NotDetected); Influenza A, PCR Not Detected (NotDetected); Influenza AH1, 2009 Not Detected (NotDetected); Influenza AH1, PCR Not Detected (NotDetected); Influenza AH3,PCR Not Detected (NotDetected); Influenza B, PCR Not Detected (NotDetected); Mycoplasma Pneumoniae, PCR Not Detected (NotDetected); Parainfluenza 1, PCR Not Detected (NotDetected); Parainfluenza 2, PCR Not Detected (NotDetected); Parainfluenza 3, PCR Not Detected (NotDetected); Parainfluenza 4, PCR Not Detected (NotDetected); Respiratory Syncytial Virus Not Detected (NotDetected); Rhinovirus/Enterovirus Not Detected (NotDetected)
[2020-04-13 08:04] LABS: Erythrocyte Sedimentation Rate 67 mm/hr (0-30)
--- NOTE | 2020-04-13 08:20 | HMH.HP ---
*Admission Date: 04/13/20 *Chief complaint: hematuria *History of present illness: 74-year-old female admitted with gross hematuria last week returned to ed with c/o of hematuria. during last admission Hematuria cleared with continuous bladder irrigation and she was discharged home however the hematuria has recurred and she returned to ed. pt was placed on bladder irrigation, her urine remained clear and she was discharged back to her nursing facility but she had recurrent hematuria and was scheduled for cystoscopy on Thursday. Pt admitted for consult and gross hematuria [facility] History I have reviewed the patient's past medical history: Yes Medical History: Reports:: Aneurysm, Anxiety, Cancer, Chronic Obstructive Pulmonary Disease (COPD), Coronary Artery Disease, Dementia, Depression, Hypertension, Migraine, Urinary Tract Infection Denies:: Diabetes Mellitus Type 1, Diabetes Mellitus Type 2, Internal Pacemaker, MRSA, Seizures *Have you ever received a pneumonia vaccine?: Yes *Have you received a flu vaccine this season?: Yes Other Medical History: Reports: Anemia, Arthritis, Sinus Problems, Other (bipolar) Laterality Cases: Bilateral: ACL Repair, Total Hip Replacement Other Surgeries: Yes: Appendectomy, Cardiac Catheterization, Colonoscopy, Colon Resection, Coronary Stent, Hysterectomy-Total, Other (rt hip replacement). No: Pacemaker Amputation: No Fractures: No - *Social History Smoking Status: Never smoker Tobacco Type: cigarettes # Packs/Day (cigarettes): 1 #Yrs smoked (if former smoker): 60 Alcohol Intake: never Alcohol Intake Frequency:: other Substance Use Type: denies use *Occupational Status:: disabled Housing: jail Household Members: other *Travel in the last 8 weeks: None - Psychiatric History Pschychiatric History:: Reports:: Anxiety, Depression Family Hx:: Heart Attack, Hypertension Review of Systems - Review of Systems Review of systems:: pertinent systems reviewed and negative unless documented below - Constitutional Reports fatigue, Reports weakness, Denies body ache(s) - Eyes Denies change in vision - ENT Denies abnormal hearing, Denies sore throat, Denies other - *Cardiovascular Denies chest pain at rest, Denies leg sores - *Respiratory Denies chest congestion, Denies shortness of breath with activity - *Gastrointestinal Denies coffee ground vomit, Denies nausea, Denies vomiting - *Genitourinary Reports blood in urine, Reports other - *Musculoskeletal Denies joint pain - Integumentary/Breasts Denies bleeding lesions - *Neurologic Denies abnormal hearing, Denies seizure-like activity - Psychiatric Denies lack of enjoyment - Endocrine Denies excessive sweating - Hematologic/Lymphatic Denies enlarged lymph nodes Meds Home Medications Medication Instructions Recorded Confirmed Type Multivitamin [Multi-Vitamin Plain] 1 each PO DAILY 01/04/19 04/13/20 History Hydrocodone/Acetaminophen [[place] 1 each PO Q6HP PRN #60 tab 01/14/19 04/13/20 Rx 5-325 Tablet] Bethanechol Chloride [Urecholine 10 mg PO TID 01/27/19 04/13/20 History 10mg tablet] donepezil 10 mg tablet 10 mg PO DAILY tab 01/02/20 04/13/20 History gabapentin 400 mg capsule 400 mg PO TID cap 01/02/20 04/13/20 History ibuprofen 400 mg tablet 400 mg PO Q6HP PRN tab 01/02/20 04/13/20 History memantine 10 mg tablet 10 mg PO BID tab 01/18/20 04/13/20 History Atorvastatin Calcium [Lipitor 40mg 40 mg PO DAILY 01/24/20 04/13/20 History Tab] Ticagrelor [Brilinta 90mg 90 mg PO BID 01/24/20 04/13/20 History Tablet] ramipriL [Altace 5mg capsule] 5 mg PO DAILY 01/24/20 04/13/20 History acetaminophen 500 mg tablet 500 mg PO Q4HP PRN 02/29/20 04/13/20 History Aspirin [Aspirin 81mg chewable 81 mg PO DAILY 04/07/20 04/13/20 History tab] Cyanocobalamin (Vitamin B-12) 1,000 mcg PO DAILY 04/07/20 04/13/20 History [Vitamin B-12 1000mcg Tablet] Guaifenesin/Dextromethorphan 10 ml PO Q6HP PRN 04/07/2004/13
--- NOTE | 2020-04-13 08:26 | PC.NURSE ---
pt to be scheduled for cystoscopy per Lisset on second floor. Pt will remain NPO per Dr Pineda.
--- NOTE | 2020-04-13 09:23 | PC.NURSE ---
Princess Leigh Rn called lab to see how much longer on the COVID swab. lab stated that there was around 60 minutes still left of the test because the test had previously failed . Notified supervisor housecleaner notified of delay and issue with the covid test.
--- NOTE | 2020-04-13 10:37 | SW/DCPLANNER ---
This patient currently resides at [facility] level of care per Zoila. I will continue to follow up with Zoila until patient is medically stable for discharge.
--- NOTE | 2020-04-13 11:09 | PC.NURSE ---
Dr. Stafford's office called @ 8:23 this am to let us know that he will be taking this pt for her cystoscopy today. Pt. remains NPO.
--- NOTE | 2020-04-13 14:15 | P.PN_ITS ---
[facility] Anesthesia Checklist - Patient Identification Patient Identification: Arm Band - Structural Data Admitted From: Inpatient Planned Operative Procedure/s: cystoscopy Consent for Planned Operative Procedure(s) Verified: Yes Verified Documents: Surgical Consent, History and Physical - NPO Status Verified Time NPO: 00:00 - Additional verifications Anesthesia Reactions: No - Airway Assessment C-Spine Mobility Assessed: Yes (mp2) TMJ Mobility Assessed: Yes Dentition: Good Dentition - Neurological Assessment Level of Consciousness: Awake, Alert - Anesthesia Plan Anesthesia Risk discussed: Yes Anesthesia Plan: Verified ASA Class: III Anesthesia Type: General [facility] History I have reviewed the patient's past medical history: Yes Medical History: Reports:: Aneurysm, Anxiety, Chronic Obstructive Pulmonary Disease (COPD), Coronary Artery Disease, Dementia, Depression, Hyperlipidemia, Hypertension, Migraine, Urinary Tract Infection Denies:: Cancer, Diabetes Mellitus Type 1, Diabetes Mellitus Type 2, Internal Pacemaker, MRSA, Seizures *Have you ever received a pneumonia vaccine?: Yes *Have you received a flu vaccine this season?: Yes Other Medical History: Reports: Anemia, Arthritis, Sinus Problems, Other (bipolar) Anesthesia experience/problems:: nac Laterality Cases: Bilateral: ACL Repair, Total Hip Replacement Other Surgeries: Yes: Appendectomy, Cardiac Catheterization, Colonoscopy, Colon Resection, Coronary Stent, Hysterectomy-Total, Other (rt hip replacement). No: Pacemaker Amputation: No Fractures: No - *Social History Last grade of school completed: 11th or 12th Smoking Status: Never smoker Tobacco Type: cigarettes # Packs/Day (cigarettes): 1 #Yrs smoked (if former smoker): 60 Alcohol Intake: never Alcohol Intake Frequency:: other Substance Use Type: denies use *Occupational Status:: retired Housing: detention Household Members: other *Travel in the last 8 weeks: None - Psychiatric History Pschychiatric History:: Reports:: Anxiety, Depression Family Hx:: Unable to obtain
--- NOTE | 2020-04-13 14:16 | P.PN_ITS ---
[facility] Anesthesia Record Part I Intake, IV Amount: 1,000 Estimated blood loss (mL): 0 Urine output (mL): 0 Blood Pressure: 110/63 SaO2: 92 Pulse Rate: 61 Respiratory Rate: 16 Temperature: 97.1 F Patient is:: Drowsy, Stable (1410)
--- NOTE | 2020-04-13 14:52 | HMH.PHAINT ---
MEDICATION RECONCILIATION COMPLETED ON PATIENT USING MAR FROM LONG TERM. -JEB HOBSON, TAVOND
--- NOTE | 2020-04-13 14:54 | P.CONPHA_ITS ---
[facility] Pharmacy VTE Monitoring - Patient Demographics Admission date: 04/13/20 Report Date: 04/13/20 Time: 14:54 Allergies/Adverse Reactions: Patient Allergies diphtheria toxoid,fluid [DIPHTHERIA TOXOID,FLUID] Allergy (Unknown, Verified 04/13/20 06:51) Unknown allergy reaction Penicillins [PENICILLINS] Allergy (Unknown, Verified 04/13/20 06:51) Unknown allergy reaction Sulfa (Sulfonamide Antibiotics) [SULFA (SULFONAMIDE ANTIBIOTICS)] Allergy (Unknown, Verified 04/13/20 06:51) Unknown allergy reaction tetanus and diphtheria toxoids [TETANUS & DIPHTHERIA TOXOIDS] Allergy (Unknown, Verified 04/13/20 06:51) Unknown allergy reaction codeine Allergy (Verified 04/13/20 06:51) Unknown allergy reaction morphine Allergy (Verified 04/13/20 06:51) Unknown allergy reaction Height: 1.57 m Weight: 71.72 kg Patient Problems: Current Active Problems Hematuria (Acute) Anemia (Acute) - VTE Risk Labs: VTE Related Lab Results Hgb 9.7 g/dL (12.2-16.2) L 04/13/20 07:02 Hct 29.0 % (37.0-47.0) L 04/13/20 07:02 Plt Count 285 K/mm3 (142-424) D 04/13/20 07:02 BUN 9 mg/dl (7-17) 04/13/20 07:02 Creatinine 0.70 mg/dl (0.52-1.04) 04/13/20 07:02 Estimated Creat Clear 56 mL/min (50-200) 04/13/20 07:02 VTE Score: 3 VTE Risk Level: Low Risk - Prophylaxis VTE Prophylaxis Ordered?: Yes Types of VTE Prophylaxis: IPCS Thigh High Location of Applied Device: Bilateral Lower Extremeties - VTE Diagnosis Confirmed Treatment or plan recommended: Continue Current Treatment
[2020-04-13 15:46] LABS: Basophils # 0.1 K/mm3 (0-0.2); Monocytes # 0.3 K/mm3 (0.1-1.0); Red Blood Count 2.74 M/mm3 (4.20-5.40); Red Cell Distribution Width 15.5 % (11.5-17.5)
[2020-04-13 15:55] LABS: Basophils % 0.6 % (0.1-2.0); Eosinophils # 0.3 K/mm3 (0.0-0.4); Eosinophils % 3.4 % (0.1-12.0); Hematocrit 26.4 % (37.0-47.0); Lymphocytes # 1.2 K/mm3 (0.7-4.5); Lymphocytes % 12.8 % (10-50); Mean Corpuscular HGB Conc 33.1 g/dL (31.8-35.4); Mean Corpuscular Hemoglobin 31.9 pg (27.0-31.2); Mean Corpuscular Volume 96.5 fl (81-99); Mean Platelet Volume 8.8 fl (7.4-10.4); Monocytes % 2.6 % (1.7-9.3); Neutrophils # 7.8 K/mm3 (1.8-7.8); Neutrophils % 80.6 % (37.0-80.0); Platelet Count 221 K/mm3 (142-424); White Blood Count 9.7 K/mm3 (4.8-10.8)
[2020-04-13 15:56] LABS: Hemoglobin 8.7 g/dL (12.2-16.2)
--- NOTE | 2020-04-13 16:41 | HMH.OPNOTE ---
Date of procedure: 04/13/20 Pre-op Diagnosis:: Gross hematuria Post-op Diagnosis:: Gross hematuria secondary to bladder clots Procedure performed:: Cystoscopy with clot evacuation Surgeon:: Braxton Stafford MD [employer]IFICIAL [employer]ERRY MAKER:: Seun Wall Anesthesia: GETYun Estimated blood loss (mL): 0 Clinical Note:: 74-year-old white female admitted with gross hematuria last week. Hematuria cleared with continuous bladder irrigation and she was discharged home however the hematuria has recurred and she presents for urologic evaluation. Operative findings:: Large amount of bladder clot noted in the bladder. No evidence of bladder tumor or hemorrhagic cystitis. Operative note:: Patient taken to the operating room after informed consent was obtained. Was placed on the operating table in the supine position and general anesthesia administered. Preoperative antibiotics and sequential compression devices placed. She was then placed into the dorsal lithotomy position prepped draped in a standard surgical fashion. 22 Den passed into the urethra there is noted to be a large amount of clot in the bladder. The Urovac was used to evacuate some of the clot but was felt that we needed a bigger lumen scope so the 22 Cymraes was removed and our 28 Cymraes resectoscope sheath was placed into the urethra with use of the obturator. We then irrigated the bladder with the Urovac again and large amount of clot was obtained. Once all the clot was removed we looked in with use of the resectoscope and the bladder was thoroughly examined. There is no evidence of any bladder tumors or hemorrhagic cystitis. An obvious cause for bleeding was not found. Small area at the bladder neck at the 6 o'clock position was fulgurated is a little bleeding was noted from there but may have been traumatic from the scope. Ureteral orifices in their normal anatomic position with clear reflux of urine. Scope removed and a 22 Cymraes three-way catheter placed to continuous bladder irrigation. Patient tolerated well discharged to recovery in stable condition. Condition: stable Disposition: PACU Specimens:: None Complications:: None
--- NOTE | 2020-04-13 16:56 | HMH.CONS ---
*Admission Date: 04/13/20 *Reason for consult:: Recurrent gross hematuria *History of present illness: 74-year-old white female with recurrent gross hematuria. She was seen last week with gross hematuria and it cleared with continuous bladder irrigation and hand irrigation. Her urine remained clear and she was discharged back to her nursing facility but she had recurrent hematuria and was scheduled for cystoscopy on Thursday but came to emergency room last evening and was admitted. Previous CT scan is shown no evidence of hydronephrosis or stones. I have discussed proceeding with cystoscopy today with the patient and she is amenable. [facility] History Medical History: Reports:: Aneurysm, Anxiety, Chronic Obstructive Pulmonary Disease (COPD), Coronary Artery Disease, Dementia, Depression, Hyperlipidemia, Hypertension, Migraine, Urinary Tract Infection Denies:: Cancer, Diabetes Mellitus Type 1, Diabetes Mellitus Type 2, Internal Pacemaker, MRSA, Seizures *Have you ever received a pneumonia vaccine?: Yes *Have you received a flu vaccine this season?: Yes Other Medical History: Reports: Anemia, Arthritis, Sinus Problems, Other (bipolar) Anesthesia experience/problems:: nac Laterality Cases: Bilateral: ACL Repair, Total Hip Replacement Other Surgeries: Yes: Appendectomy, Cardiac Catheterization, Colonoscopy, Colon Resection, Coronary Stent, Hysterectomy-Total, Other (rt hip replacement). No: Pacemaker Amputation: No Fractures: No - *Social History Last grade of school completed: 11th or 12th Smoking Status: Never smoker Tobacco Type: cigarettes # Packs/Day (cigarettes): 1 #Yrs smoked (if former smoker): 60 Alcohol Intake: never Alcohol Intake Frequency:: other Substance Use Type: denies use *Occupational Status:: retired Housing: halfway Household Members: other *Travel in the last 8 weeks: None - Psychiatric History Pschychiatric History:: Reports:: Anxiety, Depression Family Hx:: Unable to obtain Review of Systems - Review of Systems Review of systems:: pertinent systems reviewed and negative unless documented below - *Neurologic Denies seizure-like activity Meds Home Medications Medication Instructions Recorded Confirmed Type Multivitamin [Multi-Vitamin Plain] 1 each PO DAILY 01/04/19 04/13/20 History Hydrocodone/Acetaminophen [[place] 1 each PO Q6HP PRN #60 tab 01/14/19 04/13/20 Rx 5-325 Tablet] Bethanechol Chloride [Urecholine 10 mg PO TID 01/27/19 04/13/20 History 10mg tablet] donepezil 10 mg tablet 10 mg PO DAILY tab 01/02/20 04/13/20 History gabapentin 400 mg capsule 400 mg PO TID cap 01/02/20 04/13/20 History ibuprofen 400 mg tablet 400 mg PO Q6HP PRN tab 01/02/20 04/13/20 History memantine 10 mg tablet 10 mg PO BID tab 01/18/20 04/13/20 History Atorvastatin Calcium [Lipitor 40mg 40 mg PO DAILY 01/24/20 04/13/20 History Tab] Ticagrelor [Brilinta 90mg 90 mg PO BID 01/24/20 04/13/20 History Tablet] ramipriL [Altace 5mg capsule] 5 mg PO DAILY 01/24/20 04/13/20 History acetaminophen 500 mg tablet 500 mg PO Q4HP PRN 02/29/20 04/13/20 History Aspirin [Aspirin 81mg chewable 81 mg PO DAILY 04/07/20 04/13/20 History tab] Cyanocobalamin (Vitamin B-12) 1,000 mcg PO DAILY 04/07/20 04/13/20 History [Vitamin B-12 1000mcg Tablet] Guaifenesin/Dextromethorphan 10 ml PO Q6HP PRN 04/07/20 04/13/20 History [Robafen-Dm Syrup] Metoprolol Succinate [Metoprolol 25 mg PO DAILY 04/07/20 04/13/20 History Succinate 25mg Tablet*] Citalopram Hydrobromide 30 mg PO DAILY 04/08/20 04/13/20 History [Citalopram 10mg Tablet] Cefdinir [Omnicef 300mg Capsule] 300 mg PO BID 04/13/20 04/13/20 History Docusate Sodium [Stool Softener] 250 mg PO DAILY 04/13/20 04/13/20 History Allergies Allergy/AdvReac Type Severity Reaction Status Date / Time diphtheria toxoid,fluid Allergy Unknown Unknown Verified 04/13/20 06:51 [DIPHTHERIA TOXOID,FLUID] allergy reaction Penicillins [PENICILLINS] Allergy U
[2020-04-13 17:47] LABS: Basophils % 0.3 % (0.1-2.0); Eosinophils # 0.1 K/mm3 (0.0-0.4); Hematocrit 27.6 % (37.0-47.0); Hemoglobin 9.1 g/dL (12.2-16.2); Mean Corpuscular Hemoglobin 31.5 pg (27.0-31.2); Mean Corpuscular Volume 95.7 fl (81-99); Mean Platelet Volume 8.7 fl (7.4-10.4); Monocytes # 0.2 K/mm3 (0.1-1.0); Monocytes % 1.6 % (1.7-9.3); Neutrophils # 9.4 K/mm3 (1.8-7.8); Platelet Count 261 K/mm3 (142-424); Red Blood Count 2.89 M/mm3 (4.20-5.40); Red Cell Distribution Width 15.5 % (11.5-17.5); White Blood Count 10.7 K/mm3 (4.8-10.8)
[2020-04-13 17:50] LABS: MANUAL DIFFERENTIAL MANUAL DIFFERENTIAL (MANUAL DIFF)
[2020-04-13 17:53] LABS: Anion Gap 9.3 mEq/L (5-15); Blood Urea Nitrogen 7 mg/dl (7-17); Calcium 8.3 mg/dl (8.4-10.2); Carbon Dioxide 25 mmol/L (22.0-30.0); Chloride 111 mmol/L (98-107); Creatinine Clearance Estimated 56 mL/min (50-200); Estimated Glomerular Filt Rate 121 ml/min (>60); GFR (African American) 146 ML/MIN (>60); Glucose 115 mg/dl (74-100); Potassium 3.3 mmoL/L (3.5-5.1); Sodium 142 mmol/L (136-145)
--- NOTE | 2020-04-13 17:54 | HMH.ANESII ---
[facility] Anesthesia Record Part II Discharge Time: 14:46 Destination: Medical Surgical Department PACU nurse assessment reviewed?: Yes Patient Condition:: Good Anesthesia Complications:: None Swallowing reflex intact?: Yes Cyanosis?: No Blood Pressure: 118/61 Pulse Rate: 64 Temperature: 97.5 F Mental Status: Alert & Oriented Pain level:: 0 Nausea and/or vomitting:: None Intake, IV Amount: 0
[2020-04-13 18:19] LABS: Eosinophils % 1 % (0-3); Lymphocytes % 12 % (10-50); Monocytes % 1 % (2-9); Neutrophils % 86 % (42-76); Platelet Estimate Normal; RBC Morphology Normal; Total Cells Counted 100
[2020-04-14] VITALS (19 sets, daily range): BP systolic 96–131; BP diastolic 56–77; PULSE 57–75; RESP 16–18; TEMP 36.4–36.8; O2SAT 93–98; BMI 30.9
--- NOTE | 2020-04-14 04:31 | PC.NURSE ---
NO ACUTE CHANGES NOTED FROM PREVIOUS SHIFT. PT IS A&O X4 ANSWERS ALL QUESTIONS APPROPRIATELY WHEN ASKED, BUT DOES INTERMITTENTLY GET CONFUSED T/O SHIFT. TOLERATED INFUSION OF 2 UNITS OF PRBC WELL WITH NO COMPLICATIONS THUS FAR. B/P REMAINS HYPOTENSIVE AT TIMES (MAP REMAINS GREATER THAN 65) , PT ASYMPTOMATIC. PT NOTED LETHARGIC THIS SHIFT, STATES SHE HAS BEEN TIRED SINCE COMING BACK FROM [facility] TODAY . BILATERAL LUNGS NOTED CLEAR T/O UPON AUSCULTATION. TOLERATED RA WELL WITH NO SOA. CBI T/O SHIFT, URINE NOTED CLEAR TO LIGHT YELLOW IN COLOR. TOLERATED CBI WELL WITH NO COMPLAINTS. CATH SITE NOTED C/D/I. ADEQUATE URINE OUTPUT NOTED THUS FAR THIS SHIFT. DENIES BM TODAY. SCUDS TO BLE. NO EDEMA. DENIES PAIN. VSS. REMAINS SAFE. CALL LIGHT WITHIN REACH. WILL CONTINUE TO MONITOR.
[2020-04-14 07:04] LABS: Basophils % 0.4 % (0.1-2.0); Chloride 114 mmol/L (98-107); Eosinophils # 0.1 K/mm3 (0.0-0.4); Eosinophils % 0.9 % (0.1-12.0); Lymphocytes # 2.2 K/mm3 (0.7-4.5); Lymphocytes % 19.2 % (10-50); Mean Corpuscular HGB Conc 32.5 g/dL (31.8-35.4); Mean Corpuscular Hemoglobin 31.3 pg (27.0-31.2); Mean Corpuscular Volume 96.2 fl (81-99); Mean Platelet Volume 8.7 fl (7.4-10.4); Monocytes # 0.5 K/mm3 (0.1-1.0); Monocytes % 4.2 % (1.7-9.3); Neutrophils # 8.7 K/mm3 (1.8-7.8); Neutrophils % 75.4 % (37.0-80.0); Platelet Count 233 K/mm3 (142-424); Red Blood Count 3.33 M/mm3 (4.20-5.40); White Blood Count 11.6 K/mm3 (4.8-10.8)
[2020-04-14 07:05] LABS: Potassium 3.6 mmoL/L (3.5-5.1); Sodium 143 mmol/L (136-145)
[2020-04-14 07:07] LABS: Blood Urea Nitrogen 9 mg/dl (7-17); Creatinine Clearance Estimated 59 mL/min (50-200); Estimated Glomerular Filt Rate 98 ml/min (>60); GFR (African American) 118 ML/MIN (>60)
[2020-04-14 07:08] LABS: Anion Gap 7.6 mEq/L (5-15); Calcium 8.4 mg/dl (8.4-10.2); Carbon Dioxide 25 mmol/L (22.0-30.0); Glucose 92 mg/dl (74-100)
[2020-04-14 07:32] LABS: Hemoglobin 10.5 g/dL (12.2-16.2)
--- NOTE | 2020-04-14 07:40 | PC.NURSE ---
Carolee CAZARES CALLED AT 0740 THIS MORNING AND INSTRUCTED TO STOP CBI FOR ONE HOUR. IF URINE REMAINS CLEARS, REMOVE GARZA CATHETER AND HAVE DR. ROTHMAN DISCHARGE PT. URINE REMAINED CLEAR AND DR. CAZARES'S INSTRUCTIONS FOLLOWED
--- NOTE | 2020-04-14 08:19 | HMH.ACPN2 ---
Internal Medicine - PN: Subj *Date: 04/14/20 *Time: 08:19 Interval history: pt alert today - feels tired urine clear - dr andersen wants trial of no irrigation Exam Vital signs and Labs for Last 24 Hours: Temp Pulse Resp BP Pulse Ox 98.2 F 65 18 131/74 93 L 04/14/20 07:39 04/14/20 07:39 04/14/20 07:39 04/14/20 07:39 04/14/20 07:39 Laboratory Results - last 24 hr 04/13/20 07:45: Chlamy pneumoniae PCR Not detected, Adenovirus (PCR) Not detected, B. pertussis DNA (PCR) Not detected, Coronavirus OC43 (PCR) Not detected, Coronavirus HKU1 (PCR) Not detected, Coronavirus 229E (PCR) Not detected, COVID-19 PCR Not detected, Coronavirus NL63 (PCR) Not detected, Human Metapneumovir PCR Not detected, Influenza A (H1) PCR Not detected, Influ A (H1N1/09) PCR Not detected, Influenza A (H3) PCR Not detected, Influenza Type A (PCR) Not detected, Influenza Type B (PCR) Not detected, M. pneumoniae (PCR) Not detected, Parainfluenza 1 (PCR) Not detected, Parainfluenza 2 (PCR) Not detected, Parainfluenza 3 (PCR) Not detected, Parainfluenza 4 (PCR) Not detected, RSV (PCR) Not detected, Entero/Rhino (PCR) Not detected 04/13/20 15:38: WBC 9.7, RBC 2.74 L, Hgb 8.7 L D, Hct 26.4 L, MCV 96.5, MCH 31.9 H, MCHC 33.1, RDW 15.5, Plt Count 221, MPV 8.8, Neut % (Auto) 80.6 H, Lymph % (Auto) 12.8, Collin % (Auto) 2.6, Eos % (Auto) 3.4, Baso % (Auto) 0.6, Neut # (Auto) 7.8, Lymph # (Auto) 1.2, [place]lin # (Auto) 0.3, Eos # (Auto) 0.3, Baso # (Auto) 0.1 04/13/20 17:24: WBC 10.7, RBC 2.89 L, Hgb 9.1 L, Hct 27.6 L, MCV 95.7, MCH 31.5 H, MCHC 33.0, RDW 15.5, Plt Count 261, MPV 8.7, Neut % (Auto) 88.0 H, Lymph % (Auto) 9.0 L, Collin % (Auto) 1.6 L, Eos % (Auto) 1.0, Baso % (Auto) 0.3, Neut # (Auto) 9.4 H, Lymph # (Auto) 1.0, Collin # (Auto) 0.2, Eos # (Auto) 0.1, Baso # (Auto) 0.0, Total Counted 100, Neutrophils % (Manual) 86 H, Lymphocytes % (Manual) 12, Monocytes % (Manual) 1 L, Eosinophils % (Manual) 1, Platelet Estimate Normal, RBC Morphology Normal 04/13/20 17:24: Sodium 142, Potassium 3.3 L, Chloride 111 H, Carbon Dioxide 25, Anion Gap 9.3, BUN 7, Creatinine 0.50 L D, Estimated Creat Clear 56, Estimated GFR 121, Est GFR ( Amer) 146 D, Glucose 115 H, Calcium 8.3 L 04/13/20 17:53: Blood Type O Positive, Antibody Screen Negative, Crossmatch (AHG) See Detail 04/14/20 06:50: WBC 11.6 H, RBC 3.33 L, Hgb 10.5 L D, Hct 32.0 L, MCV 96.2, MCH 31.3 H, MCHC 32.5, RDW 15.0, Plt Count 233, MPV 8.7, Neut % (Auto) 75.4, Lymph % (Auto) 19.2, Collin % (Auto) 4.2, Eos % (Auto) 0.9, Baso % (Auto) 0.4, Neut # (Auto) 8.7 H, Lymph # (Auto) 2.2, Collin # (Auto) 0.5, Eos # (Auto) 0.1, Baso # (Auto) 0.0 04/14/20 06:50: Sodium 143, Potassium 3.6, Chloride 114 H, Carbon Dioxide 25, Anion Gap 7.6, BUN 9 D, Creatinine 0.60, Estimated Creat Clear 59, Estimated GFR 98, Est GFR ( Amer) 118, Glucose 92, Calcium 8.4 I & O for Last 24 hours: Intake & Output 04/11/20 04/12/20 04/13/20 04/14/20 11:59 11:59 11:59 11:59 Intake Total 2571 / 2571 Output Total 2550 / 2550 Balance Weight 158 lb 1.848 oz 168 lb Microbiology Reports for the Last 24 Hours: Microbiology 04/13/20 07:10 Urine,Catheterized Urine Culture - Preliminary NO GROWTH AFTER 24 HOURS - Constitutional no acute distress, obese - *Routine HEENT Exam Head: Present: normocephalic Eye: Present: EOMI, PERRL ENT: Present: mucous membranes dry - *Routine Neck Exam Present: supple - *Routine Respiratory Exam Absent: respiratory distress - *Routine Cardiovascular Exam Present: RRR - *Routine Abdominal Exam Present: soft - *Routine Extremities Exam Present: full ROM - *Routine Skin Exam Present: intact - *Routine Neurological Exam Present: alert, CN II-XII intact - Routine Psychiatric Exam Present: normal affect Assessment and Plan (1) Anemia Current visit: Yes Status: Acute Qualifiers: Anemia type: other cause Other causes of anemia: other
--- NOTE | 2020-04-14 08:22 | [facility].DCSUM ---
General - General Admission date:: 04/13/20 Discharge date: 04/14/20 HPI HPI: 74-year-old female admitted with gross hematuria last week returned to ed with c/o of hematuria. during last admission Hematuria cleared with continuous bladder irrigation and she was discharged home however the hematuria has recurred and she returned to ed. pt was placed on bladder irrigation, her urine remained clear and she was discharged back to her nursing facility but she had recurrent hematuria and was scheduled for cystoscopy on Thursday. Pt admitted for consult and gross hematuria Hospital Course Hospital Course: pt has did well - feels tired but nikki diet and urine clear - pt was seen by dr [id number]-old white female with recurrent gross hematuria. She was seen last week with gross hematuria and it cleared with continuous bladder irrigation and hand irrigation. Her urine remained clear and she was discharged back to her nursing facility but she had recurrent hematuria and was scheduled for cystoscopy on Thursday but came to emergency room last evening and was admitted. Previous CT scan is shown no evidence of hydronephrosis or stones. I have discussed proceeding with cystoscopy today with the patient and she is amenable. pt had urology scope-re-op Diagnosis:: Gross hematuria Post-op Diagnosis:: Gross hematuria secondary to bladder clots Procedure performed:: Cystoscopy with clot evacuation Surgeon:: Braxton Andersen MD LEAN MAN[employer]URING ENGINEER:: Seun Wall Anesthesia: GETYun Estimated blood loss (mL): 0 Clinical Note:: 74-year-old white female admitted with gross hematuria last week. Hematuria cleared with continuous bladder irrigation and she was discharged home however the hematuria has recurred and she presents for urologic evaluation. Operative findings:: Large amount of bladder clot noted in the bladder. No evidence of bladder tumor or hemorrhagic cystitis. Operative note:: Patient taken to the operating room after informed consent was obtained. Was placed on the operating table in the supine position and general anesthesia administered. Preoperative antibiotics and sequential compression devices placed. She was then placed into the dorsal lithotomy position prepped draped in a standard surgical fashion. 22 Den passed into the urethra there is noted to be a large amount of clot in the bladder. The Urovac was used to evacuate some of the clot but was felt that we needed a bigger lumen scope so the 22 [place] was removed and our 28 Ugandan resectoscope sheath was placed into the urethra with use of the obturator. We then irrigated the bladder with the Urovac again and large amount of clot was obtained. Once all the clot was removed we looked in with use of the resectoscope and the bladder was thoroughly examined. There is no evidence of any bladder tumors or hemorrhagic cystitis. An obvious cause for bleeding was not found. Small area at the bladder neck at the 6 o'clock position was fulgurated is a little bleeding was noted from there but may have been traumatic from the scope. Ureteral orifices in their normal anatomic position with clear reflux of urine. Scope removed and a 22 Ugandan three-way catheter placed to continuous bladder irrigation. Patient tolerated well discharged to recovery in stable condition. Condition: stable pt will be d/c to [facility] and have close follow up and discussed with dr mali camacho to stop brilinta Objective Vital signs: Temp Pulse Resp BP Pulse Ox 98.2 F 65 18 131/74 93 L 04/14/20 07:39 04/14/20 07:39 04/14/20 07:39 04/14/20 07:39 04/14/20 07:39 no acute distress, obese - *Routine HEENT Exam Head: Present: normocephalic Eye: Present: EOMI, PERRL ENT: Present: mucous membranes dry - *Routine Neck Exam Present: supple - *Routine Respiratory Exam Absent: respiratory distress - *Routine Cardiovascular Exam Present: RRR - *Routine Abdominal Exam Present: soft - *Routin
== END 2020-04-14 10:55 ==
LOC: ER 07:46 → 2ND 07:53
PROVIDERS: Urology; Admitting Provider Emergency Medicine; Emergency Provider Emergency Medicine; PCP Emergency Medicine; Visit Provider Emergency Medicine
PROC: 0TJB8ZZ Inspection of Bladder, Via Natural or Artificial Opening Endoscopic (ICD-10-PCS; CPT 52000; principal; 2020-04-13 12:00)
DX: N02.9 Recurrent and persistent hematuria with unspecified morphologic changes (principal); D64.89 Other specified anemias; J44.9 Chronic obstructive pulmonary disease, unspecified; I10 Essential (primary) hypertension; E78.5 Hyperlipidemia, unspecified; I25.10 Atherosclerotic heart disease of native coronary artery without angina pectoris; Z95.5 Presence of coronary angioplasty implant and graft; Z88.2 Allergy status to sulfonamides; Z88.0 Allergy status to penicillin; Z88.7 Allergy status to serum and vaccine; Z88.8 Allergy status to other drugs, medicaments and biological substances; Z79.899 Other long term (current) drug therapy
CPT/HCPCS: 36430; 52001; 36415; 80048; 80053; 81001; 85007; 85025; 85651; 86140; 86850; 87086; 87581; 87633; 87798; 88305; 96365; 96367; 96374; 99284; G0378; J1956; J2405; P9016

== ENCOUNTER → 2020-05-24 13:06 | Outpatient (CLI) | payer MEDICARE, MEDICAID, SELFPAY ==
--- NOTE | 2020-05-24 13:12 | MM_ITS ---
PROCEDURE: MM DIG SCREENING MAMM BI W/CAD Referring Doctor: Dom Pineda Patient Age:74Y CLINICAL INDICATION: SCREENING 74-year-old but no hormones but no new complaints. Hysterectomy. The the COMPARISON: CT ABDPELW CT abdomen pelvis w con from 01/04/2019 MG MM DIG SCREENING MAMM BI W/CAD from 05/23/2019 TECHNIQUE: Standard CC and MLO images were obtained. R2 CAD reviewed. Bilateral digital breast tomosynthesis included. FINDINGS: [id number] residual fibroglandular elements but moderate fatty replacement. No dominant or suspicious new mass Right breast no new areas of significant concern. Again note benign-appearing secretory calcifications which appear similar to previous 2019 mammogram Left breast: Stable with no new areas of concern. Scattered benign calcifications similar to previous study. Bilateral follow-up 1 year recommended IMPRESSION: No new areas Of concern either breast: stable bilateral mammogram. Stable benign calcification bilateral Bilateral follow-up 1 year recommended BI-RAD Category: 2 Benign Finding(s) FOLLOW-UP: 1YR 1 Year Follow-up (A letter has been sent to the patient regarding results of the study.) Dictated by: Lance Sawyer MD 05/29/2020 12:32 Lance Sawyer MD in [place] 05/29/2020 12:32
== END ==
PROVIDERS: PCP Emergency Medicine; Visit Provider Emergency Medicine
DX: Z12.31 Encounter for screening mammogram for malignant neoplasm of breast (principal)
CPT/HCPCS: 77063; 77067

== ENCOUNTER 2020-08-28 23:24 | Emergency (ER) | payer MEDICARE, MEDICAID, SELFPAY ==
--- NOTE | 2020-08-28 23:22 | ECG_ITS ---
APPROVED REPORT Exam: Resting ECG HR:61 bpm ECG Measurements Heart Rate 61 AXES TX 154 P 47 QRSd 66 QRS 18 QT 430 T 53 QTc 432 Conclusion Normal sinus rhythm with sinus arrhythmia Normal ECG Electronically signed by : Neftali Avalos, 08/29/2020 20:47:14
[2020-08-28 23:25] VITALS: BP 114/80; PULSE 64; RESP 18; TEMP 36.9; O2SAT 96; BMI 30.9
--- NOTE | 2020-08-28 23:32 | XR_ITS ---
PROCEDURE: XR CHEST PORTABLE CLINICAL HISTORY: weakness COMPARISON: CR XR CHEST AP from 12/07/2019 CR XR CHEST AP from 04/05/2020 CR XR CHEST AP from 04/07/2020 FINDINGS: The cardiomediastinal silhouette and pulmonary vascularity are within normal limits. The lungs are clear without infiltrates, suspicious nodules, or pleural effusions. No acute bony abnormalities. There prominent degenerate changes of both shoulders with subacromial stenosis most marked on the right side. IMPRESSION: No acute findings. Dictated by: Dr. Jeremy Dawson MD 08/29/2020 08:20 Dr. Jeremy Dawson MD in [place] 08/29/2020 08:20
--- NOTE | 2020-08-28 23:32 | CT_ITS ---
PROCEDURE: CT HEAD/BRAIN WO CON CLINICAL INDICATION: weakness COMPARISON: CT CT HEAD/BRAIN WO CON from 04/07/2020 TECHNIQUE: Axial images obtained. All CT scans at the facility use one or more dose reduction, viz: automated exposure control, ma/kV adjustment per patient size (including targeted exams where dose is matched to indication, i.e. head), or iterative reconstruction technique. FINDINGS: No midline shift, mass effect, intracranial hemorrhage, hydrocephalus, or extra-axial fluid collection is evident. Basilar cisterns, sylvian fissures and cortical sulci mildly. There are mild atrophic changes of the cerebellar hemispheres and there are periventricular hypodensities consistent with chronic ischemic white matter changes. There is a carotid stent in the cavernous sinus portion right internal carotid artery. Well. There is prominent hyperostosis frontalis interna.. No mastoid effusion. No sinus air-fluid level. IMPRESSION: Findings of mild to moderate cerebellar and cortical atrophy and mild chronic periventricular ischemic white matter changes, no acute intracranial pathology noted Dictated by: Dr. Jeremy Dawson MD 08/29/2020 08:16 Dr. Jeremy Dawson MD in [facility] 08/29/2020 08:16
--- NOTE | 2020-08-28 23:40 | [facility].EDGENADL ---
ED Disposition Clinical Impression: Weakness Disposition: Home, Self-Care Condition on Discharge: Good Instructions: DI for Chronic Pain -- Adult - Critical Care Critical Care Time: No Attestation: On , the high probability of a clinically significant, sudden or life threatening deterioration of the following system(s) required my full and direct attention, intervention and personal management. The time I documented below is in addition to time spent performing reported procedures but includes the following listed in this critical care notation. Medical Decision Making - Medical Records Medical records reviewed: Yes: I reviewed the patient's medical records. - Nico Inquiry Pt receiving controlled substance: No Vital Signs: 08/28/20 23:25 Temperature 98.5 F Temperature Source Oral Pulse Rate [Right] 64 Respiratory Rate 18 Blood Pressure [Right Arm] 114/80 Blood Pressure Mean [Right Arm] 91 Blood Pressure Source [Right Arm] Automatic Cuff Blood Pressure Position [Right Arm] Supine 02 Sat by Pulse Oximetry 96 Oxygen Delivery Method Room Air - Lab Data Lab Results 08/28/20 23:20: WBC 12.7 H, RBC 4.01 L, Hgb 12.6, Hct 38.2, MCV 95.2, MCH 31.5 H, MCHC 33.1, RDW 14.3, Plt Count 199, MPV 8.4, Neut % (Auto) 58.0, Lymph % (Auto) 30.0, Story % (Auto) 7.2, Eos % (Auto) 4.1, Baso % (Auto) 0.8, Neut # (Auto) 7.4, Lymph # (Auto) 3.8, Story # (Auto) 0.9, Eos # (Auto) 0.5 H, Baso # (Auto) 0.1 08/28/20 23:20: Sodium 133 L, Potassium 4.4, Chloride 100, Carbon Dioxide 27, Anion Gap 10.4, BUN 26 H, Creatinine 1.20 H, Estimated Creat Clear 52, Estimated GFR 44 L, Est GFR ( Amer) 53 L, Glucose 98, Calcium 9.7, Total Bilirubin 0.4, AST 28, ALT 15, Alkaline Phosphatase 178 H, Total Creatine Kinase 187 H, Troponin I < 0.01, Total Protein 7.1, Albumin 4.1, Globulin 3.0, Albumin/Globulin Ratio 1.4 Result diagrams: 08/28/20 23:20 08/28/20 23:20 Orders (Tests/Meds): ED MEDICATIONS Generic Name Dose Route Start Last Admin Trade Name Celia PRN Reason Stop Dose Admin Lactated Ringer's 1,000 mls @ 999 mls/hr 08/28/20 23:45 08/29/20 00:29 Lactated Ringer's 1000 Ml Bag IV 08/29/20 00:45 999 mls/hr .Q1H1M MANE Administration ORDERS Category Date Time Status CT head/brain wo con Stat Cat Scan 08/28/20 23:32 Ordered XR chest portable Stat Exams 08/28/20 23:32 Ordered Troponin I Q3H Lab 08/29/20 02:45 Ordered Troponin I Q3H Lab 08/29/20 05:45 Ordered UA [Urinalysis and Microscopic] Stat Lab 08/28/20 23:48 Ordered Medical Decision Narrative: Female with extensive past medical history presents for itchiness. Patient denies any pain anywhere no chest pain belly pain, asymptomatic otherwise. Vital signs on arrival are stable, no hypotension, tachycardia or hypoxemia. Patient satting well on room air. Patient had chest x-ray, CT head ordered, without contrast, patient had blood work ordered including CMP, CBC, troponin, EKG and urinalysis. EKG demonstrates no STEMI, normal sinus rhythm. Patient on repeat examination was found to have no clinically significant lab abnormalities, patient does not have any significant acute kidney injury, electrolytes are within normal limits, patient has mild AST and ALT elevation which she will need outpatient follow-up blood work for. Patient troponin is below limit, patient chest x-ray shows no focal consolidation, CT head demonstrates no bleeding or acute abnormality. Patient on reassessment was improved, patient was amenable to discharge back to assisted. Covid test was ordered prior to discharge for outpatient follow-up. General Adult HPI - General Stated complaint: aniety Time Seen by Provider: 08/28/20 23:41 Mode of Arrival: EMS Limitations: No Limitations Description of Symptoms (Recalled from ER Triage Doc. by RN): [facility] reports pt was c/o pain earlier and was given a PRN Lortab, then pt kept c/o of different pains and anxious, Pt here via EMS for assesment
[2020-08-28 23:44] LABS: Alanine Aminotransferase 15 U/L (12-78); Albumin Level 4.1 g/dl (3.5-5.0); Albumin/Globulin Ratio 1.4 (1.1-1.8); Alkaline Phosphatase 178 U/L (38-126); Anion Gap 10.4 mEq/L (5-15); Aspartate Amino Transferase 28 U/L (14-36); Bilirubin,Total 0.4 mg/dl (0.2-1.3); Blood Urea Nitrogen 26 mg/dl (7-17); Calcium 9.7 mg/dl (8.4-10.2); Carbon Dioxide 27 mmol/L (22.0-30.0); Chloride 100 mmol/L (98-107); Creatine Kinase 187 U/L (30-135); Creatinine Clearance Estimated 52 mL/min (50-200); Estimated Glomerular Filt Rate 44 ml/min (>60); GFR (African American) 53 ML/MIN (>60); Glucose 98 mg/dl (74-100); Potassium 4.4 mmoL/L (3.5-5.1); Sodium 133 mmol/L (136-145); Total Protein,Serum 7.1 g/dl (6.3-8.2)
[2020-08-28 23:53] LABS: Basophils # 0.1 K/mm3 (0-0.2); Basophils % 0.8 % (0.1-2.0); Eosinophils # 0.5 K/mm3 (0.0-0.4); Eosinophils % 4.1 % (0.1-12.0); Hematocrit 38.2 % (37.0-47.0); Hemoglobin 12.6 g/dL (12.2-16.2); Lymphocytes # 3.8 K/mm3 (0.7-4.5); Mean Corpuscular HGB Conc 33.1 g/dL (31.8-35.4); Mean Corpuscular Hemoglobin 31.5 pg (27.0-31.2); Mean Corpuscular Volume 95.2 fl (81-99); Mean Platelet Volume 8.4 fl (7.4-10.4); Monocytes # 0.9 K/mm3 (0.1-1.0); Monocytes % 7.2 % (1.7-9.3); Neutrophils # 7.4 K/mm3 (1.8-7.8); Platelet Count 199 K/mm3 (142-424); Red Blood Count 4.01 M/mm3 (4.20-5.40); Red Cell Distribution Width 14.3 % (11.5-17.5); White Blood Count 12.7 K/mm3 (4.8-10.8)
[2020-08-28 23:56] LABS: Troponin I < 0.01 ng/ml (0.00-0.034)
[2020-08-29 00:41] VITALS: BP 128/83; PULSE 66; RESP 18; O2SAT 96
[2020-08-29 02:17] VITALS: BP 118/70; PULSE 66; RESP 16; TEMP 36.9; O2SAT 96
[2020-08-30 11:00] LABS: Covid-19 Nasal PCR Sendout P&C Negative
== END 2020-08-29 02:22 | disposition home or self-care (01) ==
PROVIDERS: Emergency Provider Emergency Medicine; PCP Emergency Medicine
DX: Z20.828 Contact with and (suspected) exposure to other viral communicable diseases (principal); L29.9 Pruritus, unspecified; R53.83 Other fatigue; J44.9 Chronic obstructive pulmonary disease, unspecified; I50.9 Heart failure, unspecified; I25.10 Atherosclerotic heart disease of native coronary artery without angina pectoris; F03.90 Unspecified dementia, unspecified severity, without behavioral disturbance, psychotic disturbance, mood disturbance, and anxiety
CPT/HCPCS: 70450; 71045; 80053; 82550; 84484; 85025; 93005; 96365; 99284; U0004

== ENCOUNTER 2020-09-14 01:48 | Emergency (ER) | payer MEDICARE, MEDICAID, SELFPAY ==
[2020-09-14 01:49] VITALS: BP 108/73; PULSE 80; RESP 18; TEMP 37.4; O2SAT 96; BMI 27.1
--- NOTE | 2020-09-14 01:54 | [facility].EDGENADL ---
ED Disposition Clinical Impression: Fall Qualifiers: Encounter type: initial encounter Qualified Code(s): W19.XXXA - Unspecified fall, initial encounter Disposition: Xfer Other Condition on Discharge: Good Instructions: How to Prevent Falls Additional Instructions: Return if recurrent falls or any new/recurrent symptoms. Referrals: Dom Pineda MD [Primary Care Provider] - - Critical Care Critical Care Time: No Attestation: On 09/14/20, the high probability of a clinically significant, sudden or life threatening deterioration of the following system(s) required my full and direct attention, intervention and personal management. The time I documented below is in addition to time spent performing reported procedures but includes the following listed in this critical care notation. Medical Decision Making - Medical Records Medical records reviewed: Yes: I reviewed the patient's medical records. - [place] Inquiry Pt receiving controlled substance: No Vital Signs: 09/14/20 01:49 Temperature 99.4 F Temperature Source Oral Pulse Rate [Left Radial] 80 Respiratory Rate 18 Blood Pressure [Right Arm] 108/73 L Blood Pressure Mean [Right Arm] 84 Blood Pressure Source [Right Arm] Automatic Cuff Blood Pressure Position [Right Arm] Supine 02 Sat by Pulse Oximetry 96 Oxygen Delivery Method Nasal Cannula Oxygen Flow Rate (LPM) 2 - Lab Data Lab Results 09/14/20 02:08: WBC 7.9, RBC 3.94 L, Hgb 12.4, Hct 39.4, MCV 99.9 H, MCH 31.6 H, MCHC 31.6 L, RDW 13.9, Plt Count 163, MPV 8.9, Neut % (Auto) 73.3, Lymph % (Auto) 11.6, [place] % (Auto) 10.1 H, Eos % (Auto) 3.5, Baso % (Auto) 1.4, Neut # (Auto) 5.8, Lymph # (Auto) 0.9, [place] # (Auto) 0.8, Eos # (Auto) 0.3, Baso # (Auto) 0.1 09/14/20 02:08: Sodium 140, Potassium 4.3, Chloride 106, Carbon Dioxide 28, Anion Gap 10.3, BUN 17, Creatinine 1.20 H, Estimated Creat Clear 44, Estimated GFR 44 L, Est GFR ( Amer) 53 L, Glucose 101 H, Calcium 9.6, Total Bilirubin 0.4, Direct Bilirubin 0.3, Conjugated Bilirubin 0.0, Indirect Bilirubin 0.1, Unconjugated Bilirubin 0.2, AST 25, ALT 16, Alkaline Phosphatase 145 H, Troponin I < 0.01, Total Protein 7.1, Albumin 4.2 Result diagrams: 09/14/20 02:08 09/14/20 02:08 Orders (Tests/Meds): ORDERS Category Date Time Status CT cervical spine wo con Stat Cat Scan 09/14/20 02:[address] head/brain wo con Stat Cat Scan 09/14/20 02:[address] lumbar spine wo con Stat Cat Scan 09/14/20 02:13 Taken XR chest portable Stat Exams 09/14/20 02:13 Taken XR pelvis 1-2V Stat Exams 09/14/20 02:13 Taken Troponin I Q3H Lab 09/14/20 05:30 Ordered Troponin I Q3H Lab 09/14/20 08:30 Ordered Medical Decision Narrative: Patient presents to the emergency department after reported mechanical fall where she possibly hit her head and may or may not have lost consciousness. She does have history of dementia so difficult to elicit a clear history. At this time, she seems to be at her baseline mental status without any obvious signs of trauma to her head or neck. She endorses some dull neck pain but has no midline neck tenderness or any palpable step-offs or deformities. CT imaging of patient's head and neck will be obtained to ensure no acute ICH/fracture any cervical spine fracture or subluxation. Also, as the events surrounding her mechanical fall are unknown basic lab work be obtained to ensure no anemia versus electrolyte derangement versus any cardiac abnormalities. EKG obtained demonstrates no dysrhythmia. Cardiac enzyme test pending. CT head negative. CT cervical spine without cervical fracture or subluxation but chronic findings. Patient did complain of lower back pain so CT L-spine also obtained which demonstrates chronic changes without acute fracture. Lab work unremarkable. Pelvis/Chest radiographs w/o obvious bony injury. Patient continues to be at her baseline mental status without further complaints. I do believe she is safe to
[2020-09-14 02:12] VITALS: BMI 27.8
--- NOTE | 2020-09-14 02:13 | XR_ITS ---
PROCEDURE: XR CHEST PORTABLE CLINICAL HISTORY: fall Posttraumatic pain COMPARISON: CR XR CHEST AP from 04/05/2020 CR XR CHEST AP from 04/07/2020 CR XR CHEST PORTABLE from 08/28/2020 FINDINGS: Normal heart size. There is mild prominence of the aortic knob not significantly changed. The lungs are clear without infiltrates, suspicious nodules, or pleural effusions. Severe right-sided subacromial stenosis consistent with rotator cuff tear. IMPRESSION: No acute findings. Dictated by: Christophe Truong MD 09/14/2020 07:01 Christophe Truong MD in [facility] 09/14/2020 07:01
--- NOTE | 2020-09-14 02:13 | CT_ITS ---
PROCEDURE: CT LUMBAR SPINE WO CON CLINICAL HISTORY: fall Posttraumatic pain COMPARISON: No exams were available for comparison TECHNIQUE: Axial images obtained with sagittal and coronal reformats. All CT scans at the facility use one or more dose reduction, viz: automated exposure control, ma/kV adjustment per patient size (including targeted exams where dose is matched to indication, i.e. head), or iterative reconstruction technique. FINDINGS: There is multilevel lumbar spondylosis with degenerative disc disease at every level. There is mild lower lumbar scoliosis convex right T12-L1: Degenerative disc disease with endplate hypertrophic change. L1-L2: Degenerative disc disease with endplate hypertrophy. The small amount of gas is present in the right paracentral region of the disc space and could be within a extruded disc. L2-L3: Degenerative disc disease with endplate and facet and ligamentum hypertrophy with canal stenosis and bilateral lateral recess and foraminal narrowing. L3-L4: Degenerative disc disease with endplate hypertrophy along with facet ligamentum hypertrophy with bilateral lateral recess narrowing foraminal narrowing and canal stenosis. L4-5: Degenerative disc disease with postsurgical changes with prior laminectomy. Facet hypertrophic changes are present with bilateral lateral recess and foraminal narrowing. L5-S1: Degenerative disc disease with bilateral foraminal narrowing. There is diffuse osteopenia. A gallstone is noted which measures 2.5 cm. There is tortuosity of the abdominal aorta. Bladder diverticula are noted. IMPRESSION: 1. No acute fracture. 2. Multilevel lumbar spondylosis with canal stenosis lateral recess and foraminal narrowing. 3. Other nonacute findings as described above Dictated by: Christophe Truong MD 09/14/2020 07:26 Christophe Truong MD in [facility] 09/14/2020 07:26
--- NOTE | 2020-09-14 02:13 | CT_ITS ---
PROCEDURE: CT HEAD/BRAIN WO CON CLINICAL INDICATION: fall Head injury with headache/pain, contusion, abrasion or hematoma COMPARISON: CT CT HEAD/BRAIN WO CON from 08/28/2020 TECHNIQUE: Axial images obtained. All CT scans at the facility use one or more dose reduction, viz: automated exposure control, ma/kV adjustment per patient size (including targeted exams where dose is matched to indication, i.e. head), or iterative reconstruction technique. FINDINGS: No midline shift, mass effect, intracranial hemorrhage, hydrocephalus, or extra-axial fluid collection is evident. There is generalized atrophy with hypoattenuation of the periventricular white matter consistent with microangiopathic changes.. There is an internal carotid artery stent present on the right. The calvarium has an unremarkable appearance. No mastoid effusion. No sinus air-fluid level. IMPRESSION: No acute intracranial finding Dictated by: Christophe Truong MD 09/14/2020 07:09 Christophe Truong MD in [facility] 09/14/2020 07:09
--- NOTE | 2020-09-14 02:13 | CT_ITS ---
PROCEDURE: CT CERVICAL SPINE WO CON CLINICAL INDICATION: fall Neck injury with pain, contusion/abrasion or hematoma, cervical sprain/strain the COMPARISON: CT CT CERVICAL SPINE WO CON from 04/05/2020 TECHNIQUE: Axial images obtained with sagittal and coronal reformats. All CT scans at the facility use one or more dose reduction, viz: automated exposure control, ma/kV adjustment per patient size (including targeted exams where dose is matched to indication, i.e. head), or iterative reconstruction technique. Axial spiral CT scanning performed of the cervical spine beginning at the base of the skull and continuing to the upper T-spine. 3-D multiplanar reconstruction with 3-D manipulation of volumetric data set in image rendering was completed by the radiologist and/or technologist with the supervision of the radiologist on independent workstation. FINDINGS: Normal alignment. No acute fracture or dislocation. There is multilevel cervical spondylosis with degenerative disc disease and facet and uncovertebral hypertrophy with areas of foraminal narrowing. Lung apices are clear. There is a 1.7 x 1.1 cm low-dense left thyroid nodule. Ultrasound may provide further evaluation. There is mild rightward nasal septal deviation. IMPRESSION: 1. No acute fracture. 2. Multilevel cervical spondylosis. 3. 1.7 cm left thyroid nodule Dictated by: Christophe Truong MD 09/14/2020 07:11 Christophe Truong MD in [facility] 09/14/2020 07:11
--- NOTE | 2020-09-14 02:13 | XR_ITS ---
PROCEDURE: XR PELVIS 1-2V CLINICAL INDICATION: fall Posttraumatic pain COMPARISON: CR XR PELVIS 1-2V from 12/07/2019 TECHNIQUE: XR Pelvis AP View FINDINGS: No fracture or dislocation is evident. There are bilateral total hip prosthesis in place in good position. Bony spurring is noted along the lateral aspect of the acetabulum on the left. Lumbar scoliosis convex right with degenerative change. No lytic or blastic change. IMPRESSION: No acute findings. Dictated by: Christophe Truong MD 09/14/2020 07:00 Christophe Truong MD in [facility] 09/14/2020 07:00
[2020-09-14 02:29] LABS: Basophils # 0.1 K/mm3 (0-0.2); Basophils % 1.4 % (0.1-2.0); Eosinophils # 0.3 K/mm3 (0.0-0.4); Eosinophils % 3.5 % (0.1-12.0); Hematocrit 39.4 % (37.0-47.0); Hemoglobin 12.4 g/dL (12.2-16.2); Lymphocytes # 0.9 K/mm3 (0.7-4.5); Lymphocytes % 11.6 % (10-50); Mean Corpuscular HGB Conc 31.6 g/dL (31.8-35.4); Mean Corpuscular Hemoglobin 31.6 pg (27.0-31.2); Mean Corpuscular Volume 99.9 fl (81-99); Mean Platelet Volume 8.9 fl (7.4-10.4); Monocytes # 0.8 K/mm3 (0.1-1.0); Monocytes % 10.1 % (1.7-9.3); Neutrophils # 5.8 K/mm3 (1.8-7.8); Neutrophils % 73.3 % (37.0-80.0); Platelet Count 163 K/mm3 (142-424); Red Blood Count 3.94 M/mm3 (4.20-5.40); Red Cell Distribution Width 13.9 % (11.5-17.5); White Blood Count 7.9 K/mm3 (4.8-10.8)
[2020-09-14 02:30] LABS: Chloride 106 mmol/L (98-107); Potassium 4.3 mmoL/L (3.5-5.1); Sodium 140 mmol/L (136-145)
[2020-09-14 02:33] LABS: Alanine Aminotransferase 16 U/L (12-78); Albumin Level 4.2 g/dl (3.5-5.0); Alkaline Phosphatase 145 U/L (38-126); Anion Gap 10.3 mEq/L (5-15); Aspartate Amino Transferase 25 U/L (14-36); Bilirubin,Direct 0.3 mg/dl (0.0-0.4); Bilirubin,Indirect 0.1 mg/dL (0.0-0.9); Bilirubin,Total 0.4 mg/dl (0.2-1.3); Bilirubin,Unconjugated 0.2 mg/dL (0.0-1.1); Blood Urea Nitrogen 17 mg/dl (7-17); Calcium 9.6 mg/dl (8.4-10.2); Carbon Dioxide 28 mmol/L (22.0-30.0); Creatinine Clearance Estimated 44 mL/min (50-200); Estimated Glomerular Filt Rate 44 ml/min (>60); GFR (African American) 53 ML/MIN (>60); Glucose 101 mg/dl (74-100); Total Protein,Serum 7.1 g/dl (6.3-8.2)
[2020-09-14 02:45] LABS: Troponin I < 0.01 ng/ml (0.00-0.034)
[2020-09-14 03:26] VITALS: BP 126/84; PULSE 78; RESP 18; TEMP 37.2; O2SAT 94
== END 2020-09-14 03:53 | disposition other institution (70) ==
PROVIDERS: Emergency Provider Emergency Medicine; PCP Emergency Medicine
DX: S00.83XA Contusion of other part of head, initial encounter (principal); M54.5 Low back pain; F03.90 Unspecified dementia, unspecified severity, without behavioral disturbance, psychotic disturbance, mood disturbance, and anxiety; W01.0XXA Fall on same level from slipping, tripping and stumbling without subsequent striking against object, initial encounter; Y92.129 Unspecified place in nursing home as the place of occurrence of the external cause; I10 Essential (primary) hypertension; J44.9 Chronic obstructive pulmonary disease, unspecified; E78.5 Hyperlipidemia, unspecified; F17.210 Nicotine dependence, cigarettes, uncomplicated; Z79.899 Other long term (current) drug therapy; Z88.0 Allergy status to penicillin; Z88.2 Allergy status to sulfonamides; Z88.5 Allergy status to narcotic agent; Z88.7 Allergy status to serum and vaccine
CPT/HCPCS: 70450; 71045; 72125; 72131; 72170; 80048; 80076; 84484; 85025; 99283; U0004

== ENCOUNTER → 2020-09-14 08:44 | Outpatient (CLI) | payer MEDICARE, MEDICAID, SELFPAY ==
[2020-09-15 21:09] LABS: Covid-19 Nasal PCR Sendout P&C POSITIVE
== END ==
PROVIDERS: Visit Provider Nurse Practitioner Family
DX: R53.1 Weakness (principal)
CPT/HCPCS: U0004

== ENCOUNTER → 2020-10-07 23:59 | Outpatient (CLI) | payer MEDICARE, MEDICAID, SELFPAY ==
[2020-10-08 01:07] LABS: Microscopic, Urine URINE MICROSCOPIC (MICROSCOPIC)
[2020-10-08 01:25] LABS: Appearance,Urine TURBID (Clear); Bilirubin,Urine Negative (Negative); Blood, Urine TRACE-L (Negative); Color,Urine YELLOW (Yellow); Glucose,Urine (UA) Negative (Negative); Ketones,Urine TRACE (Negative); Leukocyte Esterase,Urine 3+ (Negative); Nitrate,Urine Negative (Negative); Protein,Urine 1+ (Negative); Urobilinogen,Urine 0.2 EU/dl (0.2)
[2020-10-08 01:35] LABS: Bacteria,Urine 4+ /lpf; WBC,Urine 20-50 #/hpf (0-3)
== END ==
PROVIDERS: PCP Emergency Medicine; Visit Provider Emergency Medicine
DX: R30.0 Dysuria (principal)
CPT/HCPCS: 81001; 87077; 87086; 87088

== ENCOUNTER 2020-10-28 23:57 | Emergency (ER) | payer MEDICARE, MEDICAID, SELFPAY ==
[2020-10-28 23:52] VITALS: BP 106/59; PULSE 57; RESP 16; TEMP 36.9; O2SAT 94; BMI 32.4
[2020-10-28 23:58] VITALS: BMI 32.3
--- NOTE | 2020-10-29 00:25 | HMH.EDGENADL ---
ED Disposition Clinical Impression: Encounter for medical screening examination Disposition: Home, Self-Care Condition on Discharge: Fair Instructions: How to Prevent Falls Referrals: Dom Pineda MD [Primary Care Provider] - Time of Disposition: 00:34 - Critical Care Critical Care Time: No Attestation: On 10/28/20, the high probability of a clinically significant, sudden or life threatening deterioration of the following system(s) required my full and direct attention, intervention and personal management. The time I documented below is in addition to time spent performing reported procedures but includes the following listed in this critical care notation. Medical Decision Making - Medical Records Medical records reviewed: Yes: I reviewed the patient's medical records. - Nico Inquiry Pt receiving controlled substance: No Vital Signs: 10/28/20 23:52 Temperature 98.5 F Temperature Source Oral Pulse Rate [Left Radial] 57 L Respiratory Rate 16 Blood Pressure [Left Arm] 106/59 L Blood Pressure Mean [Left Arm] 74 Blood Pressure Source [Left Arm] Automatic Cuff Blood Pressure Position [Left Arm] Supine 02 Sat by Pulse Oximetry 94 L Oxygen Delivery Method Room Air Orders (Tests/Meds): ORDERS Category Date Time Status CT head/brain wo con Stat Cat Scan 10/29/20 23:59 Taken XR chest AP Stat Exams 10/29/20 23:56 Taken XR pelvis 1-2V Stat Exams 10/29/20 23:56 Taken Medical Decision Narrative: In summary this is a 75-year-old female with history of vascular dementia presenting to the emergency department after a possible unwitnessed fall. Patient in no distress on arrival. No specific complaints. Medical screening exam performed. No tenderness on neck flexion or extension. Nontender to palpation diffusely over the chest, upper extremities, abdomen, lower extremities. Full range of motion at the hips and knees. Chest x-ray, pelvis x-ray, noncontrast head CT obtained. Imaging unremarkable. No obvious bony abnormalities. No subdural hematoma. No other intracranial abnormalities. On reassessment patient was resting comfortably in the emergency department. She had been able to sleep. Awoke easily. No further complaints. Stable for discharge. General Adult HPI - General Chief complaint: Fall Stated complaint: unwitnessed possible fall Time Seen by Provider: 10/29/20 00:05 Mode of Arrival: EMS Limitations: No Limitations Description of Symptoms (Recalled from ER Triage Doc. by RN): [place] reports pt was complaining of pain in her neck, back, arm, and leg from falling although pt does not get up without assistance usually and showed no signs of getting out of bed according to staff. EMS reports pt was laying in bed when they arrived and had no complaints of pain. Pt has full ROM to BUE and BLE. No complaints reported to staff. No signs of fall or injuries. Denies recent illness. HX limited due to dementia - History of Present Illness HPI narrative: 75-year-old female with history of vascular dementia presenting to the emergency department after possible unwitnessed fall. Patient was at her alf this evening when she called out from bed. Said she had fallen. She was back in the bed when staff came into the room. They do not believe that she would have the ability to get herself up by herself, but they are not sure. Patient complained of headache, back pain, pain in her extremities. When EMS arrived she had no complaints. On my evaluation patient denied headache, neck pain, chest pain, abdominal pain, pain in her arms or legs. No confusion, numbness, weakness, tingling. Patient does not take blood thinning medicines. - Related Data Home Medications Medication Instructions Recorded Confirmed Multivitamin [Multi-Vitamin Plain] 1 each PO DAILY 01/04/19 10/23/20 Bethanechol Chloride [Urecholine 10 mg PO TID 01/27/19 10/23/20 10mg tablet] donepezil 10 mg tablet 10 mg
[2020-10-29 01:11] VITALS: BP 124/78; PULSE 73; RESP 17; TEMP 36.7; O2SAT 98
--- NOTE | 2020-10-29 23:56 | XR_ITS ---
PROCEDURE: XR PELVIS 1-2V CLINICAL INDICATION: fall, unwitnessed Posttraumatic pain COMPARISON: CR XR PELVIS 1-2V from 12/07/2019 CR XR PELVIS 1-2V from 09/14/2020 TECHNIQUE: XR Pelvis AP View FINDINGS: No fracture or dislocation is evident. There are bilateral total hip prosthesis present. No fracture or dislocation apparent. Degenerative changes are present in the lower lumbar spine. There is mild bilateral acetabular protrusio No lytic or blastic change. IMPRESSION: No acute findings. Dictated by: Christophe Truong MD 10/29/2020 05:46 Christophe Truong MD in [place] 10/29/2020 05:46
--- NOTE | 2020-10-29 23:56 | XR_ITS ---
PROCEDURE: XR CHEST AP CLINICAL HISTORY: fall, unwitnessed COMPARISON: CR XR CHEST AP from 04/07/2020 CR XR CHEST PORTABLE from 08/28/2020 CR XR CHEST PORTABLE from 09/14/2020 FINDINGS: Mild cardiomegaly without failure. Mild prominence of the descending thoracic aorta not significantly changed. The lungs are clear without infiltrates, suspicious nodules, or pleural effusions. No acute bony abnormalities. IMPRESSION: No acute findings. Dictated by: Christophe Truong MD 10/29/2020 05:47 Christophe Truong MD in [place] 10/29/2020 05:47
--- NOTE | 2020-10-29 23:59 | CT_ITS ---
PROCEDURE: CT HEAD/BRAIN WO CON CLINICAL INDICATION: unwitnessed Fall, dementia COMPARISON: CT CT HEAD/BRAIN WO CON from 09/14/2020 TECHNIQUE: Axial images obtained. All CT scans at the facility use one or more dose reduction, viz: automated exposure control, ma/kV adjustment per patient size (including targeted exams where dose is matched to indication, i.e. head), or iterative reconstruction technique. FINDINGS: No midline shift, mass effect, intracranial hemorrhage, hydrocephalus, or extra-axial fluid collection is evident. There is generalized atrophy with hypoattenuation of the periventricular white matter consistent with microangiopathic changes. There is a right internal carotid artery stent. The calvarium has an unremarkable appearance. No mastoid effusion. There is mild mucosal thickening of the ethmoid sinuses. There is moderate rightward nasal septal deviation. IMPRESSION: No acute intracranial finding Dictated by: Christophe Truong MD 10/29/2020 06:08 Christophe Truong MD in [place] 10/29/2020 06:08
== END 2020-10-29 01:24 | disposition home or self-care (01) ==
PROVIDERS: Emergency Provider Emergency Medicine; PCP Emergency Medicine
DX: M54.2 Cervicalgia (principal); M54.5 Low back pain; W01.0XXA Fall on same level from slipping, tripping and stumbling without subsequent striking against object, initial encounter; Y92.129 Unspecified place in nursing home as the place of occurrence of the external cause; F03.90 Unspecified dementia, unspecified severity, without behavioral disturbance, psychotic disturbance, mood disturbance, and anxiety; I50.9 Heart failure, unspecified; J44.9 Chronic obstructive pulmonary disease, unspecified; I25.10 Atherosclerotic heart disease of native coronary artery without angina pectoris; I10 Essential (primary) hypertension; F41.8 Other specified anxiety disorders; Z79.899 Other long term (current) drug therapy; Z88.0 Allergy status to penicillin; Z88.2 Allergy status to sulfonamides; Z88.5 Allergy status to narcotic agent; Z88.7 Allergy status to serum and vaccine; E78.5 Hyperlipidemia, unspecified; F17.210 Nicotine dependence, cigarettes, uncomplicated
CPT/HCPCS: 70450; 71045; 72170; 99283

== ENCOUNTER 2020-10-31 13:49 | Emergency (ER) | payer MEDICARE, MEDICAID, SELFPAY ==
[2020-10-31 13:50] VITALS: BP 104/62; PULSE 76; RESP 18; TEMP 37.7; O2SAT 93; BMI 25.0
--- NOTE | 2020-10-31 13:54 | HMH.EDGENADL ---
ED Disposition Clinical Impression: Accident due to mechanical fall without injury Qualifiers: Encounter type: initial encounter Qualified Code(s): W19.XXXA - Unspecified fall, initial encounter Disposition: Xfer SNF Condition on Discharge: Good Instructions: How to Prevent Falls Additional Instructions: CT imaging of patient's head, cervical spine, thoracic spine, lumbar spine, and abdomen/pelvis obtained. No bony injuries noted the patient cervical spine/thoracic spine/lumbar spine. No intracranial abnormalities and CT abdomen/pelvis demonstrates no solid organ injury. Patient did have some right shoulder pain but x-ray demonstrates no right shoulder bony abnormality. At this time, concussion cannot be ruled out based on imaging. Patient should avoid activities that predispose to a second head injury over the next 1 to 2 weeks as well as any activities that exacerbate symptoms should be avoided. Patient should follow up with her primary care doctor for recheck within several days. She should be brought back to the emergency department if any new or recurrent symptoms prior to that time. Referrals: PCP,No [Primary Care Provider] - - Critical Care Critical Care Time: No Attestation: On 10/31/20, the high probability of a clinically significant, sudden or life threatening deterioration of the following system(s) required my full and direct attention, intervention and personal management. The time I documented below is in addition to time spent performing reported procedures but includes the following listed in this critical care notation. Medical Decision Making - Medical Records Medical records reviewed: Yes: I reviewed the patient's medical records. - Nico Inquiry Pt receiving controlled substance: No Vital Signs: 10/31/20 13:50 10/31/20 15:50 10/31/20 16:00 Temperature 99.8 F H Temperature Source Oral Pulse Rate [Left Radial] 76 75 69 Respiratory Rate 18 18 18 Blood Pressure [Right Arm] 104/62 L 116/57 L 120/71 Blood Pressure Mean [Right Arm] 76 76 87 Blood Pressure Source [Right Arm] Automatic Cuff Blood Pressure Position [Right Arm] Sitting 02 Sat by Pulse Oximetry 93 L 98 96 Oxygen Delivery Method Room Air 10/31/20 16:45 10/31/20 18:20 Temperature Temperature Source Pulse Rate [Left Radial] 67 69 Respiratory Rate 18 18 Blood Pressure [Right Arm] 126/61 125/69 Blood Pressure Mean [Right Arm] 82 87 Blood Pressure Source [Right Arm] Blood Pressure Position [Right Arm] 02 Sat by Pulse Oximetry 95 94 L Oxygen Delivery Method - Lab Data Lab Results 10/31/20 14:06: WBC 6.9, RBC 3.74 L, Hgb 11.8 L, Hct 37.9, MCV 101.4 H, MCH 31.5 H, MCHC 31.1 L, RDW 14.4, Plt Count 156, MPV 8.6, Neut % (Auto) 77.2, Lymph % (Auto) 13.6, [place] % (Auto) 6.1, Eos % (Auto) 2.2, Baso % (Auto) 1.0, Neut # (Auto) 5.3, Lymph # (Auto) 0.9, [place] # (Auto) 0.4, Eos # (Auto) 0.2, Baso # (Auto) 0.1 10/31/20 14:06: Sodium 142, Potassium 4.3, Chloride 110 H, Carbon Dioxide 26, Anion Gap 10.3, BUN 20 H, Creatinine 1.10 H, Estimated Creat Clear 51, Estimated GFR 48 L, Est GFR ( Amer) 59, Glucose 172 H, Calcium 9.1, Total Bilirubin 0.4, AST 25, ALT 17, Alkaline Phosphatase 138 H, Total Protein 6.9, Albumin 3.9, Globulin 3.0, Albumin/Globulin Ratio 1.3 Result diagrams: 10/31/20 14:06 10/31/20 14:06 Orders (Tests/Meds): ED MEDICATIONS Discontinued Medications Generic Name Dose Route Start Last Admin Trade Name Freq PRN Reason Stop Dose Admin Iopamidol 75 ml 10/31/20 15:35 10/31/20 15:35 Iopamidol-370 (76%);100ml Bottle IV 10/31/20 15:36 75 ml ONCE ONE Administration Sodium Chloride 10 ml 10/31/20 15:35 10/31/20 15:35 Sodium Chloride 0.9% 10ml Syr (Rad Only) IV 10/31/20 15:36 10 ml ONCE ONE Administration Medical Decision Narrative: Patient is a 75-year-old female presenting after mechanical fall. Patient assessed in typical ATLS fashion. C-collar applied upon ar
--- NOTE | 2020-10-31 13:59 | CT_ITS ---
PROCEDURE: CT THORACIC SPINE WO CON CLINICAL HISTORY: fall Posttraumatic pain COMPARISON: No exams were available for comparison TECHNIQUE: Axial images obtained with sagittal and coronal reformats. All CT scans at the facility use one or more dose reduction, viz: automated exposure control, ma/kV adjustment per patient size (including targeted exams where dose is matched to indication, i.e. head), or iterative reconstruction technique. FINDINGS: Generalized osteopenia with multilevel thoracic spondylosis. Mild upper thoracic curvature convex left and midthoracic curvature convex right. No acute fracture or dislocation. Incidental note made of cholelithiasis IMPRESSION: No acute fracture. Dictated by: Christophe Truong MD 10/31/2020 16:00 Christophe Truong MD in [place] 10/31/2020 16:00
--- NOTE | 2020-10-31 13:59 | XR_ITS ---
PROCEDURE: XR CHEST PORTABLE CLINICAL HISTORY: fall Posttraumatic pain COMPARISON: CR XR CHEST PORTABLE from 08/28/2020 CR XR CHEST PORTABLE from 09/14/2020 CR XR CHEST AP from 10/29/2020 FINDINGS: Mild cardiomegaly without failure. Garment artifact overlies the left hilum. The lungs are clear without infiltrates, suspicious nodules, or pleural effusions. Degenerative changes of the right shoulder with high-riding humeral head IMPRESSION: No acute findings. Dictated by: Christophe Truong MD 10/31/2020 16:12 Christophe Truong MD in [place] 10/31/2020 16:12
--- NOTE | 2020-10-31 13:59 | CT_ITS ---
PROCEDURE: CT LUMBAR SPINE WO CON CLINICAL HISTORY: fall Posttraumatic pain COMPARISON: CT CT LUMBAR SPINE WO CON from 09/14/2020 TECHNIQUE: Axial images obtained with sagittal and coronal reformats. All CT scans at the facility use one or more dose reduction, viz: automated exposure control, ma/kV adjustment per patient size (including targeted exams where dose is matched to indication, i.e. head), or iterative reconstruction technique. FINDINGS: Normal alignment. No acute fracture or dislocation. Mild upper lumbar curvature convex left and lower lumbar curvature convex right. Multilevel lumbar spondylosis with degenerative disc disease at multiple levels. There is facet and ligamentum hypertrophy at L3-L4 and L4-5 with canal stenosis. Prior laminectomy at L5. There is multilevel bilateral lateral recess and foraminal narrowing facet and ligamentum hypertrophy and bulging disc. There is also canal stenosis at L3-L4 with borderline canal stenosis at L2-L3 with bulging disc IMPRESSION: Lumbar spondylosis as described above, no acute fracture Dictated by: Christophe Truong MD 10/31/2020 16:02 Christophe Truong MD in [place] 10/31/2020 16:02
--- NOTE | 2020-10-31 13:59 | CT_ITS ---
PROCEDURE: CT CERVICAL SPINE WO CON CLINICAL INDICATION: fall Neck injury with pain, contusion/abrasion or hematoma, cervical sprain/strain the COMPARISON: CT CT CERVICAL SPINE WO CON from 09/14/2020 TECHNIQUE: Axial images obtained with sagittal and coronal reformats. All CT scans at the facility use one or more dose reduction, viz: automated exposure control, ma/kV adjustment per patient size (including targeted exams where dose is matched to indication, i.e. head), or iterative reconstruction technique. Axial spiral CT scanning performed of the cervical spine beginning at the base of the skull and continuing to the upper T-spine. 3-D multiplanar reconstruction with 3-D manipulation of volumetric data set in image rendering was completed by the radiologist and/or technologist with the supervision of the radiologist on independent workstation. FINDINGS: Normal alignment. No change multilevel cervical spondylosis with degenerative disc disease and facet and uncovertebral hypertrophy with multilevel lateral recess and foraminal narrowing. No change left thyroid nodule. Lung apices are clear IMPRESSION: Degenerative changes, no acute finding Dictated by: Christophe Truong MD 10/31/2020 15:57 Christophe Truong MD in [place] 10/31/2020 15:57
--- NOTE | 2020-10-31 13:59 | CT_ITS ---
PROCEDURE: CT HEAD/BRAIN WO CON CLINICAL INDICATION: fall Posttraumatic pain COMPARISON: CT CT HEAD/BRAIN WO CON from 10/29/2020 TECHNIQUE: Axial images obtained. All CT scans at the facility use one or more dose reduction, viz: automated exposure control, ma/kV adjustment per patient size (including targeted exams where dose is matched to indication, i.e. head), or iterative reconstruction technique. FINDINGS: No midline shift, mass effect, intracranial hemorrhage, hydrocephalus, or extra-axial fluid collection is evident. There is generalized atrophy with hypoattenuation of the periventricular white matter consistent with microangiopathic changes.. There is a stent present within the cavernous portion of the right internal carotid artery the calvarium has an unremarkable appearance. No mastoid effusion. No sinus air-fluid level. IMPRESSION: No change no acute finding Dictated by: Christophe Truong MD 10/31/2020 15:53 Christophe Truong MD in [place] 10/31/2020 15:53
--- NOTE | 2020-10-31 14:02 | CT_ITS ---
PROCEDURE: CT ABDOMEN PELVIS W CON CLINICAL INDICATION: fall Blunt trauma with injury and pain, contusion/abrasion or hematoma following injury COMPARISON: CT CT ABDOMEN PELVIS W CON from 04/07/2020 TECHNIQUE: IV Contrast: 75ML Isovue 370 Oral Contrast None Axial images obtained with sagittal and coronal reformats. All CT scans at the facility use one or more dose reduction, viz: automated exposure control, ma/kV adjustment per patient size (including targeted exams where dose is matched to indication, i.e. head), or iterative reconstruction technique. FINDINGS: Atelectatic changes are present in the lung bases. Cholelithiasis. Large stone is present in the gallbladder at 2.4 cm. The liver, spleen, and pancreas have an unremarkable appearance. There is a prominent duodenal diverticulum. There are bilateral adrenal masses left larger than right unchanged measuring up to 2.9 cm on the left. No renal or ureteral calculi. No hydronephrosis. There is tortuosity/ectasia of the abdominal aorta measuring up to 2.6 cm transverse previously measuring 2.4 cm. No intestinal obstruction or free air. Extensive artifact is present from bilateral hip prosthesis. There are small bladder diverticula noted. There is colonic diverticulosis but no evidence of diverticulitis. Obscuring fine detail the pelvis IMPRESSION: 1. No acute finding. 2. Colonic diverticulosis without diverticulitis. 3. Other nonemergent findings as detailed above. Dictated by: Christophe Truong MD 10/31/2020 16:09 Christophe Truong MD in [place] 10/31/2020 16:09
--- NOTE | 2020-10-31 14:17 | PC.NURSE ---
PLACED IN C COLAR UPON ARRIVAL TO ED PER MD VERBAL ORDER
[2020-10-31 14:23] LABS: Basophils # 0.1 K/mm3 (0-0.2); Eosinophils # 0.2 K/mm3 (0.0-0.4); Eosinophils % 2.2 % (0.1-12.0); Hematocrit 37.9 % (37.0-47.0); Hemoglobin 11.8 g/dL (12.2-16.2); Lymphocytes # 0.9 K/mm3 (0.7-4.5); Lymphocytes % 13.6 % (10-50); Mean Corpuscular HGB Conc 31.1 g/dL (31.8-35.4); Mean Corpuscular Hemoglobin 31.5 pg (27.0-31.2); Mean Corpuscular Volume 101.4 fl (81-99); Mean Platelet Volume 8.6 fl (7.4-10.4); Monocytes # 0.4 K/mm3 (0.1-1.0); Monocytes % 6.1 % (1.7-9.3); Neutrophils # 5.3 K/mm3 (1.8-7.8); Neutrophils % 77.2 % (37.0-80.0); Platelet Count 156 K/mm3 (142-424); Red Blood Count 3.74 M/mm3 (4.20-5.40); Red Cell Distribution Width 14.4 % (11.5-17.5); White Blood Count 6.9 K/mm3 (4.8-10.8)
[2020-10-31 14:33] LABS: Chloride 110 mmol/L (98-107); Potassium 4.3 mmoL/L (3.5-5.1); Sodium 142 mmol/L (136-145)
[2020-10-31 14:36] LABS: Alanine Aminotransferase 17 U/L (12-78); Albumin Level 3.9 g/dl (3.5-5.0); Albumin/Globulin Ratio 1.3 (1.1-1.8); Alkaline Phosphatase 138 U/L (38-126); Anion Gap 10.3 mEq/L (5-15); Aspartate Amino Transferase 25 U/L (14-36); Bilirubin,Total 0.4 mg/dl (0.2-1.3); Blood Urea Nitrogen 20 mg/dl (7-17); Carbon Dioxide 26 mmol/L (22.0-30.0); Creatinine Clearance Estimated 51 mL/min (50-200); Estimated Glomerular Filt Rate 48 ml/min (>60); GFR (African American) 59 ML/MIN (>60); Total Protein,Serum 6.9 g/dl (6.3-8.2)
[2020-10-31 14:37] LABS: Calcium 9.1 mg/dl (8.4-10.2); Glucose 172 mg/dl (74-100)
--- NOTE | 2020-10-31 15:16 | PC.NURSE ---
UNABLE TO OBTAIN VITALS. PT NOT IN ROOM AT THIS TIME
[2020-10-31 15:50] VITALS: BP 116/57; PULSE 75; RESP 18; O2SAT 98
[2020-10-31 16:00] VITALS: BP 120/71; PULSE 69; RESP 18; O2SAT 96
[2020-10-31 16:45] VITALS: BP 126/61; PULSE 67; RESP 18; O2SAT 95
[2020-10-31 18:20] VITALS: BP 125/69; PULSE 69; RESP 18; O2SAT 94
--- NOTE | 2020-10-31 18:25 | PC.NURSE ---
REPORT GIVEN TO [facility] SPOKE TO KEVIN
[2020-10-31 19:05] VITALS: BP 120/68; PULSE 68; RESP 18; TEMP 37.2; O2SAT 95
== END 2020-10-31 19:10 ==
PROVIDERS: Emergency Provider Emergency Medicine
DX: S00.83XA Contusion of other part of head, initial encounter (principal); W01.0XXA Fall on same level from slipping, tripping and stumbling without subsequent striking against object, initial encounter; Y92.129 Unspecified place in nursing home as the place of occurrence of the external cause; I10 Essential (primary) hypertension; I50.9 Heart failure, unspecified; J44.9 Chronic obstructive pulmonary disease, unspecified; I25.10 Atherosclerotic heart disease of native coronary artery without angina pectoris; F03.90 Unspecified dementia, unspecified severity, without behavioral disturbance, psychotic disturbance, mood disturbance, and anxiety; E78.5 Hyperlipidemia, unspecified; I73.9 Peripheral vascular disease, unspecified; F17.210 Nicotine dependence, cigarettes, uncomplicated; Z88.0 Allergy status to penicillin; Z88.2 Allergy status to sulfonamides; Z88.5 Allergy status to narcotic agent; Z88.7 Allergy status to serum and vaccine; Z79.899 Other long term (current) drug therapy
CPT/HCPCS: 70450; 71045; 72125; 72128; 72131; 74177; 80053; 85025; 99284; Q9967

== ENCOUNTER 2021-05-09 12:48 | Emergency (ER) | payer MEDICARE, MEDICAID, SELFPAY ==
[2021-05-09 12:48] VITALS: BP 101/60; PULSE 59; RESP 16; TEMP 37.2; O2SAT 94; BMI 29.0
--- NOTE | 2021-05-09 12:48 | ECG_ITS ---
APPROVED REPORT Exam: Resting ECG HR:59 bpm ECG Measurements Heart Rate 59 AXES MA 142 P 43 QRSd 64 QRS 10 QT 436 T 50 QTc 431 Conclusion Sinus bradycardia Otherwise normal ECG Electronically signed by : Neftali Avalos MD 05/12/2021 16:14:36
--- NOTE | 2021-05-09 12:56 | XR_ITS ---
PROCEDURE: XR CHEST PORTABLE CLINICAL HISTORY: WEAKNESS COMPARISON: CR XR CHEST PORTABLE from 09/14/2020 CR XR CHEST AP from 10/29/2020 CR XR CHEST PORTABLE from 10/31/2020 FINDINGS: Borderline cardiomegaly without failure. The lungs are clear without infiltrates, suspicious nodules, or pleural effusions. There is right-sided subacromial stenosis. There is nonspecific dysplastic change of the left humeral head. IMPRESSION: No acute findings. Dictated by: Christophe Truong MD 05/09/2021 13:23 Christophe Truong MD in [place] 05/09/2021 13:23
[2021-05-09 13:03] LABS: Basophils # 0.1 K/mm3 (0-0.2); Basophils % 0.8 % (0.1-2.0); Eosinophils # 0.3 K/mm3 (0.0-0.4); Eosinophils % 2.4 % (0.1-12.0); Hematocrit 44.7 % (37.0-47.0); Hemoglobin 14.1 g/dL (12.2-16.2); Lymphocytes # 2.4 K/mm3 (0.7-4.5); Lymphocytes % 22.5 % (10-50); Mean Corpuscular HGB Conc 31.6 g/dL (31.8-35.4); Mean Corpuscular Volume 101.3 fl (81-99); Mean Platelet Volume 9.2 fl (7.4-10.4); Monocytes # 0.7 K/mm3 (0.1-1.0); Monocytes % 6.5 % (1.7-9.3); Neutrophils # 7.3 K/mm3 (1.8-7.8); Neutrophils % 67.7 % (37.0-80.0); Platelet Count 258 K/mm3 (142-424); Red Blood Count 4.41 M/mm3 (4.20-5.40); Red Cell Distribution Width 13.4 % (11.5-17.5); White Blood Count 10.8 K/mm3 (4.8-10.8)
--- NOTE | 2021-05-09 13:04 | HMH.EDGENADL ---
ED Disposition Clinical Impression: Fatigue Qualifiers: Fatigue type: unspecified Qualified Code(s): R53.83 - Other fatigue Urinary tract infection Qualifiers: Urinary tract infection type: acute cystitis Hematuria presence: without hematuria Qualified Code(s): N30.00 - Acute cystitis without hematuria Disposition: Home, Self-Care Condition on Discharge: Good Instructions: DI for Urinary Tract Infection (UTI), DI for Fatigue Additional Instructions: You have been evaluated for body aches and fatigue. Diagnosed with a urinary tract infection. Please take antibiotics as prescribed. Follow-up with your primary care doctor. Return to the emergency department for any new or worsening symptoms. Prescriptions: cephALEXin [Cephalexin 500mg Tab] 500 mg PO Q6H #20 tab Transmission Status: Received by [facility] Referrals: Provider,Referral, [Primary Care Provider] - Time of Disposition: 15:23 - Critical Care Critical Care Time: No Attestation: On 05/09/21, the high probability of a clinically significant, sudden or life threatening deterioration of the following system(s) required my full and direct attention, intervention and personal management. The time I documented below is in addition to time spent performing reported procedures but includes the following listed in this critical care notation. Medical Decision Making - Medical Records Medical records reviewed: Yes: I reviewed the patient's medical records. - Nico Inquiry Pt receiving controlled substance: No Vital Signs: 05/09/21 12:48 Temperature 99 F Temperature Source Oral Pulse Rate [Radial] 59 L Respiratory Rate 16 Blood Pressure [Right Arm] 101/60 L Blood Pressure Mean [Right Arm] 73 Blood Pressure Position [Right Arm] Sitting 02 Sat by Pulse Oximetry 94 L Oxygen Delivery Method Room Air - Lab Data Lab Results 05/09/21 12:49: WBC 10.8, RBC 4.41, Hgb 14.1, Hct 44.7, MCV 101.3 H, MCH 32.0 H, MCHC 31.6 L, RDW 13.4, Plt Count 258, MPV 9.2, Neut % (Auto) 67.7, Lymph % (Auto) 22.5, [place] % (Auto) 6.5, Eos % (Auto) 2.4, Baso % (Auto) 0.8, Neut # (Auto) 7.3, Lymph # (Auto) 2.4, [place] # (Auto) 0.7, Eos # (Auto) 0.3, Baso # (Auto) 0.1 05/09/21 12:49: Sodium 141, Potassium 4.9, Chloride 105, Carbon Dioxide 30, Anion Gap 10.9, BUN 20 H, Creatinine 0.90, Estimated Creat Clear 63, Estimated GFR 61, Est GFR ( Amer) 74, Glucose 88, Calcium 9.2, Total Bilirubin 0.3, AST 29, ALT 16, Alkaline Phosphatase 138 H, Troponin I < 0.01, Total Protein 7.0, Albumin 4.0, Globulin 3.0, Albumin/Globulin Ratio 1.3 05/09/21 12:49: Total Creatine Kinase 57 05/09/21 13:30: Urine Color Yellow, Urine Appearance Cloudy, Urine pH 7.5, Ur Specific [place] 1.010, Urine Protein Negative, Urine Glucose (UA) Negative, Urine Ketones Negative, Urine Blood Negative, Urine Nitrate Negative, Urine Bilirubin Negative, Urine Urobilinogen 0.2, Ur Leukocyte Esterase 1+ A, Urine RBC None, Urine WBC 3-5, Ur Squamous Epith Cells None, Urine Bacteria 1+ 05/09/21 13:40: SARS-CoV-2 (PCR) Not detected, Influenza A Untype (PCR) Not detected, Influenza Type B (PCR) Not detected Result diagrams: 05/09/21 12:49 05/09/21 12:49 Orders (Tests/Meds): ORDERS Category Date Time Status Troponin I Q3H Lab 05/09/21 16:00 Received Troponin I Q3H Lab 05/09/21 19:00 Ordered Urine Culture Stat Micro 05/09/21 13:30 Received Medical Decision Narrative: In summary this is a 75-year-old female presenting to the emergency department with global weakness and body aches. Patient clinically stable on arrival. Vital signs within normal limits. Concern for COVID-19, anemia, dehydration. Will obtain CBC, CMP, chest x-ray, EKG, troponin profile, urinalysis. Initial laboratory results are reassuring. No leukocytosis. No renal insufficiency. No abnormality of glucose or electrolytes. Covid test is negative. Urinalysis shows 1+ leukoesterase and 3-5 white blood cells. This is not s
[2021-05-09 13:11] LABS: Alanine Aminotransferase 16 U/L (12-78); Albumin/Globulin Ratio 1.3 (1.1-1.8); Alkaline Phosphatase 138 U/L (38-126); Anion Gap 10.9 mEq/L (5-15); Aspartate Amino Transferase 29 U/L (14-36); Bilirubin,Total 0.3 mg/dl (0.2-1.3); Blood Urea Nitrogen 20 mg/dl (7-17); Calcium 9.2 mg/dl (8.4-10.2); Carbon Dioxide 30 mmol/L (22.0-30.0); Chloride 105 mmol/L (98-107); Creatinine Clearance Estimated 63 mL/min (50-200); Estimated Glomerular Filt Rate 61 ml/min (>60); GFR (African American) 74 ML/MIN (>60); Glucose 88 mg/dl (74-100); Potassium 4.9 mmoL/L (3.5-5.1); Sodium 141 mmol/L (136-145)
[2021-05-09 13:25] LABS: Troponin I < 0.01 ng/ml (0.00-0.034)
[2021-05-09 13:36] LABS: Microscopic, Urine URINE MICROSCOPIC (MICROSCOPIC)
[2021-05-09 13:39] LABS: Appearance,Urine CLOUDY (Clear); Bilirubin,Urine Negative (Negative); Blood, Urine Negative (Negative); Color,Urine YELLOW (Yellow); Glucose,Urine (UA) Negative (Negative); Ketones,Urine Negative (Negative); Leukocyte Esterase,Urine 1+ (Negative); Nitrate,Urine Negative (Negative); PH,Urine 7.5 (5.0-8.5); Protein,Urine Negative (Negative); Urobilinogen,Urine 0.2 EU/dl (0.2)
[2021-05-09 13:48] LABS: Bacteria,Urine 1+ /lpf
[2021-05-09 13:49] LABS: Creatine Kinase 57 U/L (30-135)
[2021-05-09 13:53] LABS: Coronavirus 19, PCR Not Detected (NotDetected); Influenza A, PCR Not Detected (NotDetected); Influenza B, PCR Not Detected (NotDetected)
--- NOTE | 2021-05-09 16:22 | PC.NURSE ---
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
[2021-05-09 16:33] LABS: Troponin I < 0.01 ng/ml (0.00-0.034)
[2021-05-09 17:05] VITALS: BP 157/87; PULSE 78; RESP 16; TEMP 36.6; O2SAT 97
== END 2021-05-09 17:08 | disposition home or self-care (01) ==
PROVIDERS: Emergency Provider Emergency Medicine
DX: N30.00 Acute cystitis without hematuria (principal); Z20.822 Contact with and (suspected) exposure to COVID-19; R53.83 Other fatigue; I10 Essential (primary) hypertension; J44.9 Chronic obstructive pulmonary disease, unspecified; I25.10 Atherosclerotic heart disease of native coronary artery without angina pectoris; E78.5 Hyperlipidemia, unspecified; Z88.0 Allergy status to penicillin; Z88.2 Allergy status to sulfonamides; Z88.7 Allergy status to serum and vaccine; Z79.899 Other long term (current) drug therapy
CPT/HCPCS: 71045; 80053; 81001; 82550; 84484; 85025; 87086; 87088; 93005; 99284; U0003

== ENCOUNTER → 2021-05-27 09:40 | Outpatient (CLI) | payer MEDICARE, MEDICAID, SELFPAY ==
--- NOTE | 2021-05-27 09:40 | MM_ITS ---
PROCEDURE: MM DIG SCREENING MAMM BI W/CAD Digital Breast Tomosynthesis Included CLINICAL INDICATION: screening There is no personal or family history of breast cancer. COMPARISON: MG MM DIG SCREENING MAMM BI W/CAD from 05/23/2019 MG MM DIG SCREENING MAMM BI W/CAD from 05/24/2020 TECHNIQUE: Standard CC and MLO images and 3D Tomosynthesis was obtained. R2 CAD reviewed. FINDINGS: The breasts are composed primarily of with minimal scattered fibroglandular densities seen throughout each breast. There is scattered benign-appearing calcifications in each breast. There is a mole marker each breast. CAD markings were reviewed and there are secondary to minimal arterial calcification. There is a small benign-appearing nodular density deep within the left breast medially and only definitely seen on the CC projection. This likely is an intramammary node however since it was not definitely seen previously recommend the patient return for spot compression CC view and ultrasound for additional evaluation. There are no suspicious microcalcifications. IMPRESSION: Fatty type breast parenchyma with possible new density left breast BI-RAD Category: FOLLOW-UP: IMM Immediate Follow-up Recommended (A letter has been sent to the patient regarding results of the study.) Dictated by: Dr. Jeremy Dawson MD 06/06/2021 13:55 Dr. Jeremy Dawson MD in [place] 06/06/2021 13:55
== END ==
PROVIDERS: PCP Emergency Medicine; Visit Provider Emergency Medicine
DX: Z12.31 Encounter for screening mammogram for malignant neoplasm of breast (principal)
CPT/HCPCS: 77063; 77067

== ENCOUNTER → 2021-07-09 13:38 | Outpatient (CLI) | payer MEDICARE, MEDICAID, SELFPAY ==
--- NOTE | 2021-07-09 13:38 | MM_ITS ---
PROCEDURE: REPEAT VIEW MM Digital Breast Tomosynthesis Included CLINICAL INDICATION: The patient returns for repeat views of the left breast COMPARISON: MG MM DIG SCREENING MAMM BI W/CAD from 05/27/2021 TECHNIQUE: Standard CC and MLO images and 3D Tomosynthesis was obtained. R2 CAD reviewed. FINDINGS: The small a possibly new nodular density deep within the inner quadrant left breast described on the mammogram report 05/27/2021 is secondary to a mole. Apparently the mole marker had fallen off at the time of the imaging of the CC view left breast. Repeat views on today's exam with the mole marker in place confirm this density to be secondary to the mole. Scattered benign-appearing microcalcifications are again seen throughout the breast, along with minimal arterial calcification. IMPRESSION: Fatty type breast parenchyma with no suspicious lesions seen BI-RAD Category: 2 Benign Finding(s) FOLLOW-UP: 1YR 1 Year Follow-up (A letter has been sent to the patient regarding results of the study.) Dictated by: Dr. Jeremy Dawson MD 07/12/2021 13:37 Dr. Jeremy Dawson MD in [place] 07/12/2021 13:37
== END ==
PROVIDERS: PCP Emergency Medicine; Visit Provider Nurse Practitioner Family
DX: R92.8 Other abnormal and inconclusive findings on diagnostic imaging of breast (principal)

== ENCOUNTER 2021-07-16 19:47 | Emergency (ER) | payer MEDICARE, MEDICAID, SELFPAY ==
[2021-07-16 19:46] VITALS: BP 105/65; PULSE 64; RESP 16; TEMP 37.5; O2SAT 97; BMI 29.7
--- NOTE | 2021-07-16 19:57 | XR_ITS ---
PROCEDURE INFORMATION: Exam: XR Chest Exam date and time: 07/16/2021 7:57 PM Age: 75 years old Clinical indication: Injury or trauma; Blunt trauma (contusions or hematomas); Patient HX: Syncopal episode with fall TECHNIQUE: Imaging protocol: XR of the chest. Views: 4 or more views. Total images: 1 COMPARISON: CR XR CHEST PORTABLE 05/09/2021 1:07 PM FINDINGS: Lungs: Pulmonary vasculature grossly normal. Patchy stranding in the left lung base which may relate to subsegmental atelectasis or scarring. Correlate clinically to exclude left basilar pneumonia. Pleural spaces: No pleural effusion. No pneumothorax. Heart/Mediastinum: Heart size normal. Vasculature: The aorta demonstrates mild ectasia/tortuosity and mild calcific atherosclerosis. Bones/joints: Osteopenia. No gross fractures are identified. 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 Chronic widening of the left AC joint unchanged. IMPRESSION: 1. No acute thoracic injuries are identified. 2. Patchy left basilar density which may relate to subsegmental atelectasis or scarring, correlate clinically to exclude left basilar infiltrate. 3. Osteopenia and chronic changes in the left shoulder girdle unchanged.
--- NOTE | 2021-07-16 19:57 | XR_ITS ---
PROCEDURE INFORMATION: Exam: XR Pelvis Exam date and time: 07/16/2021 7:57 PM Age: 75 years old Clinical indication: Injury or trauma; Blunt trauma (contusions or hematomas); Bilateral; Pelvic region; Patient HX: Syncopal episode with fall. TECHNIQUE: Imaging protocol: XR pelvis. Views: 1 or 2 view. Total images: 1 COMPARISON: CT ABDOMEN PELVIS W CON 10/31/2020 3:23 PM FINDINGS: Bones/joints: Osteopenia. Bilateral hip arthroplasties without evidence of acute hardware complication. No fractures are identified. No dislocation. Moderate lumbar spondylosis. Prior L5 laminectomy. SI joints and pubic symphysis are unremarkable. Soft tissues: No gross soft tissue abnormalities. IMPRESSION: No acute findings.
--- NOTE | 2021-07-16 19:57 | CT_ITS ---
PROCEDURE INFORMATION: Exam: CT Head Without Contrast Exam date and time: 07/16/2021 7:57 PM Age: 75 years old Clinical indication: Injury or trauma; Fall; Blunt trauma (contusions or hematomas) TECHNIQUE: Imaging protocol: Computed tomography of the head without contrast. Radiation optimization: All CT scans at this facility use at least one of these dose optimization techniques: automated exposure control; mA and/or kV adjustment per patient size (includes targeted exams where dose is matched to clinical indication); or iterative reconstruction. COMPARISON: CT HEAD/BRAIN WO CON 10/31/2020 3:09 PM FINDINGS: Tubes, catheters and devices: Right ICA stent is noted. Brain: Moderate chronic brain volume loss and chronic small vessel ischemic changes. Chronic left cerebellar hemisphere infarction. Cerebral ventricles: No ventriculomegaly. Paranasal sinuses: Visualized sinuses are unremarkable. No fluid levels. Mastoid air cells: Visualized mastoid air cells are well aerated. Bones/joints: Hyperostosis frontalis interna. Soft tissues: Unremarkable. IMPRESSION: No acute intracranial findings.
--- NOTE | 2021-07-16 19:57 | ECG_ITS ---
APPROVED REPORT Exam: Resting ECG HR:62 bpm ECG Measurements Heart Rate 62 AXES SD 144 P 55 QRSd 76 QRS 12 QT 420 T 46 QTc 426 Conclusion Normal sinus rhythm Normal ECG Electronically signed by : Neftali Avalos MD 07/18/2021 21:41:45
--- NOTE | 2021-07-16 19:57 | CT_ITS ---
PROCEDURE INFORMATION: Exam: CT Cervical Spine Without Contrast Exam date and time: 07/16/2021 7:57 PM Age: 75 years old Clinical indication: Injury or trauma; Fall; Blunt trauma TECHNIQUE: Imaging protocol: Computed tomography images of the cervical spine without contrast. Radiation optimization: All CT scans at this facility use at least one of these dose optimization techniques: automated exposure control; mA and/or kV adjustment per patient size (includes targeted exams where dose is matched to clinical indication); or iterative reconstruction. COMPARISON: CT CERVICAL SPINE WO CON 10/31/2020 3:09 PM FINDINGS: Bones/joints: No acute fracture. Normal alignment. Discs/Spinal canal/Neural foramina: Multilevel degenerative changes of the cervical spine producing multiple levels of mild spinal canal stenosis. Thyroid: There is a 1.8 cm left thyroid nodule. Lungs: Lung apices are normal. Soft tissues: Unremarkable. IMPRESSION: 1. No acute fracture or malalignment of the cervical spine. 2. There is a 1.8 cm left thyroid nodule. If not previously performed, follow-up ultrasound is recommended. COMMENTS: Consistent with the [employer]'s Incidental Findings Committee white paper (J Am Stewart Radiol 2015): In patients aged 35 years and older with an incidental thyroid nodule equal to or greater than 1.[address], MRI or extrathyroidal US, further evaluation with dedicated thyroid US is recommended for patients with normal life expectancy and without comorbidities. For smaller nodules without suspicious features, no further evaluation or follow up is recommended.
--- NOTE | 2021-07-16 19:57 | XR_ITS ---
PROCEDURE INFORMATION: Exam: XR Left Shoulder Exam date and time: 07/16/2021 7:57 PM Age: 75 years old Clinical indication: Injury or trauma; Blunt trauma (contusions or hematomas); Shoulder; Left; Patient HX: Syncopal episode with fall. TECHNIQUE: Imaging protocol: XR Left shoulder. Views: 2 or more views. Total images: 3 COMPARISON: CR XR CHEST PORTABLE 05/09/2021 1:07 PM FINDINGS: Bones/joints: Osteopenia. No fractures. No evidence of Leno humeral dislocation. Chronic widening of the left AC joint unchanged from 05/09/2021 measuring about 10 mm. 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 Soft tissues: Normal. IMPRESSION: 1. No acute findings. No significant change from 05/09/2021. 2. Chronic widening of the left AC joint unchanged, possibly chronic posttraumatic or postsurgical changes. 3. 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 4. Osteopenia.
[2021-07-16 20:00] VITALS: BP 106/66; PULSE 63; O2SAT 96
[2021-07-16 20:15] LABS: Microscopic, Urine URINE MICROSCOPIC (MICROSCOPIC)
[2021-07-16 20:18] LABS: Basophils # 0.1 K/mm3 (0-0.2); Basophils % 1.1 % (0.1-2.0); Eosinophils # 0.4 K/mm3 (0.0-0.4); Eosinophils % 3.5 % (0.1-12.0); Hematocrit 42.4 % (37.0-47.0); Hemoglobin 13.8 g/dL (12.2-16.2); Lymphocytes # 2.3 K/mm3 (0.7-4.5); Lymphocytes % 22.2 % (10-50); Mean Corpuscular HGB Conc 32.4 g/dL (31.8-35.4); Mean Corpuscular Hemoglobin 31.5 pg (27.0-31.2); Mean Corpuscular Volume 97.1 fl (81-99); Mean Platelet Volume 9.5 fl (7.4-10.4); Monocytes # 0.6 K/mm3 (0.1-1.0); Monocytes % 5.7 % (1.7-9.3); Neutrophils # 6.9 K/mm3 (1.8-7.8); Neutrophils % 67.6 % (37.0-80.0); Platelet Count 201 K/mm3 (142-424); Red Blood Count 4.36 M/mm3 (4.20-5.40); Red Cell Distribution Width 13.3 % (11.5-17.5); White Blood Count 10.3 K/mm3 (4.8-10.8)
[2021-07-16 20:19] LABS: Appearance,Urine CLEAR (Clear); Bilirubin,Urine Negative (Negative); Blood, Urine Negative (Negative); Color,Urine YELLOW (Yellow); Glucose,Urine (UA) Negative (Negative); Ketones,Urine TRACE (Negative); Leukocyte Esterase,Urine Negative (Negative); Nitrate,Urine POSITIVE (Negative); Protein,Urine Negative (Negative); Urobilinogen,Urine 0.2 EU/dl (0.2)
[2021-07-16 20:24] LABS: Anion Gap 11.4 mEq/L (5-15); Blood Urea Nitrogen 21 mg/dl (7-17); Calcium 9.2 mg/dl (8.4-10.2); Carbon Dioxide 26 mmol/L (22.0-30.0); Chloride 108 mmol/L (98-107); Creatinine Clearance Estimated 62 mL/min (50-200); Estimated Glomerular Filt Rate 54 ml/min (>60); GFR (African American) 65 ML/MIN (>60); Glucose 128 mg/dl (74-100); Potassium 4.4 mmoL/L (3.5-5.1); Sodium 141 mmol/L (136-145)
[2021-07-16 20:30] VITALS: BP 111/70; PULSE 63; O2SAT 98
[2021-07-16 20:32] LABS: Bacteria,Urine 4+ /lpf
[2021-07-16 20:39] LABS: Troponin I < 0.01 ng/ml (0.00-0.034)
--- NOTE | 2021-07-16 21:36 | HMH.EDFALL ---
ED Disposition Clinical Impression: Fall Qualifiers: Encounter type: initial encounter Qualified Code(s): W19.XXXA - Unspecified fall, initial encounter Head contusion Qualifiers: Encounter type: initial encounter Contusion of head detail: scalp Qualified Code(s): S00.03XA - Contusion of scalp, initial encounter Disposition: Home, Self-Care Condition on Discharge: Good Instructions: DI for Syncope in Adults (Fainting) Additional Instructions: resume prev orders Referrals: Dom Pineda MD [Primary Care Provider] - - Critical Care Critical Care Time: No Attestation: On 07/16/21, the high probability of a clinically significant, sudden or life threatening deterioration of the following system(s) required my full and direct attention, intervention and personal management. The time I documented below is in addition to time spent performing reported procedures but includes the following listed in this critical care notation. Medical Decision Making - Medical Records Medical records reviewed: Yes: I reviewed the patient's medical records. - Nico Inquiry Pt receiving controlled substance: No Vital Signs: 07/16/21 19:46 07/16/21 20:00 07/16/21 20:30 Temperature 99.5 F Temperature Source Oral Pulse Rate 63 63 Pulse Rate [Right Radial] 64 Respiratory Rate 16 Blood Pressure 106/66 L 111/70 Blood Pressure [Right Arm] 105/65 L Blood Pressure Mean 80 80 Blood Pressure Mean [Right Arm] 78 Blood Pressure Source [Right Arm] Automatic Cuff Blood Pressure Position [Right Arm] Supine 02 Sat by Pulse Oximetry 97 96 98 Oxygen Delivery Method Room Air - Lab Data Lab results reviewed: Yes: I reviewed the patient's lab results. Lab Results 07/16/21 19:54: WBC 10.3, RBC 4.36, Hgb 13.8, Hct 42.4, MCV 97.1, MCH 31.5 H, MCHC 32.4, RDW 13.3, Plt Count 201, MPV 9.5, Neut % (Auto) 67.6, Lymph % (Auto) 22.2, Hinds % (Auto) 5.7, Eos % (Auto) 3.5, Baso % (Auto) 1.1, Neut # (Auto) 6.9, Lymph # (Auto) 2.3, Hinds # (Auto) 0.6, Eos # (Auto) 0.4, Baso # (Auto) 0.1 07/16/21 19:54: Sodium 141, Potassium 4.4, Chloride 108 H, Carbon Dioxide 26, Anion Gap 11.4, BUN 21 H, Creatinine 1.00, Estimated Creat Clear 62, Estimated GFR 54 L, Est GFR ( Amer) 65, Glucose 128 H, Calcium 9.2, Troponin I < 0.01 07/16/21 20:07: Urine Color Yellow, Urine Appearance Clear, Urine pH 6.0, Ur Specific Sheridan 1.020, Urine Protein Negative, Urine Glucose (UA) Negative, Urine Ketones Trace, Urine Blood Negative, Urine Nitrate Positive, Urine Bilirubin Negative, Urine Urobilinogen 0.2, Ur Leukocyte Esterase Negative, Urine WBC 5-10, Ur Squamous Epith Cells 3-5, Urine Bacteria 4+ Result diagrams: 07/16/21 19:54 07/16/21 19:54 Orders (Tests/Meds): ORDERS Category Date Time Status Troponin I Q3H Lab 07/16/21 23:00 Ordered Troponin I Q3H Lab 07/17/21 02:00 Ordered Urine Culture Stat Micro 07/16/21 20:07 Received - Radiology Data #1 Image(s): Chest, Shoulder, Pelvis Image Reviewed: Yes I have reviewed radiologist's interpretation Preliminary Findings: No Fracture Seen - CT Data CT Scan: Head, C-Spine Time Received: 21:[address] Reviewed: Yes: I have viewed the radiologist's interpretation Preliminary Findings: No Fracture Seen - ECG Data Tracing #1 Normal Sinus Rhythm: Yes Ischemic changes: non-specific ST-T wave changes Medical Decision Narrative: stable labs and xrays Fall HPI - General Chief Complaint: Syncope Stated Complaint: Snycope Time Seen by Provider: 07/16/21 20:00 Mode of Arrival: EMS Source of Information: Patient, EMS, Medical Record Limitations: Altered Mental Status Description of Symptoms (Recalled from ER Triage Doc. by RN): [facility] reports pt fell from a standing position face first according to pt's roommate. Pt does not have any obvious injuries and only c/o pain to left shoulder. Pt has hx of dementia. At this time she is aware she fell and says he legs just
--- NOTE | 2021-07-16 21:42 | PC.NURSE ---
Calling [facility] for transport of pt to [place]
[2021-07-16 22:17] VITALS: BP 112/65; PULSE 55; RESP 16; TEMP 37.2; O2SAT 95
== END 2021-07-16 22:20 | disposition home or self-care (01) ==
PROVIDERS: Emergency Provider Emergency Medicine; PCP Emergency Medicine
DX: S00.03XA Contusion of scalp, initial encounter (principal); W01.0XXA Fall on same level from slipping, tripping and stumbling without subsequent striking against object, initial encounter; Y92.019 Unspecified place in single-family (private) house as the place of occurrence of the external cause; J44.9 Chronic obstructive pulmonary disease, unspecified; E78.5 Hyperlipidemia, unspecified; I10 Essential (primary) hypertension; I25.10 Atherosclerotic heart disease of native coronary artery without angina pectoris; F17.210 Nicotine dependence, cigarettes, uncomplicated; R55 Syncope and collapse; Z88.2 Allergy status to sulfonamides; Z88.0 Allergy status to penicillin; Z88.5 Allergy status to narcotic agent; N30.00 Acute cystitis without hematuria; B96.20 Unspecified Escherichia coli [E. coli] as the cause of diseases classified elsewhere
CPT/HCPCS: 70450; 71045; 72125; 72170; 73030; 80048; 81001; 84484; 85025; 87086; 87088; 87186; 93005; 96374; 99284

== ENCOUNTER → 2021-07-23 14:01 | Outpatient (CLI) | payer MEDICARE, MEDICAID, SELFPAY ==
--- NOTE | 2021-07-23 14:07 | US_ITS ---
PROCEDURE: US THYROID CLINICAL INDICATION: NODULE COMPARISON: US THY US THYROID from 03/23/2013 US US THYROID from 12/12/2019 FINDINGS: Right lobe: 3.1 x 1.2 x 0.9 cm. Spongiform nodule in the upper pole at 5 x 5 mm unchanged. Left lobe: 3.7 x 1.7 x 1.5 cm. Benign-appearing 8 mm cyst upper pole 18 x 15 mm solid-appearing isoechoic nodule in the lower pole with decreased echogenicity inferiorly and coarse calcification anteriorly overall not significantly changed dating back to 03/23/2013. Small spongiform nodules present in the mid polar region at 6 mm not significantly changed. Isthmus: Unremarkable Additional findings: IMPRESSION: Stable ultrasound appearance of the thyroid gland with no change in the bilateral nodules including the 18 mm dominant nodule on the left. A Dictated by: Christophe Truong MD 07/23/2021 17:53 Christophe Truong MD in [facility] 07/23/2021 17:53
== END ==
PROVIDERS: PCP Emergency Medicine; Visit Provider Emergency Medicine
DX: E04.1 Nontoxic single thyroid nodule (principal)
CPT/HCPCS: 76536

== ENCOUNTER 2021-09-07 16:19 | Emergency (ER) | payer MEDICARE, MEDICAID, SELFPAY ==
--- NOTE | 2021-09-07 16:24 | CT_ITS ---
PROCEDURE INFORMATION: Exam: CT Head Without Contrast Exam date and time: 09/07/2021 4:24 PM Age: 76 years old Clinical indication: Injury or trauma; Fall; Blunt trauma (contusions or hematomas); Without loss of consciousness; Injury date: 09/07/2021 TECHNIQUE: Imaging protocol: Computed tomography of the head without contrast. Radiation optimization: All CT scans at this facility use at least one of these dose optimization techniques: automated exposure control; mA and/or kV adjustment per patient size (includes targeted exams where dose is matched to clinical indication); or iterative reconstruction. COMPARISON: CT HEAD/BRAIN WO CON 07/16/2021 8:24 PM FINDINGS: Brain: Age related brain involution is present. No acute intracranial hemorrhage, mass effect, midline shift, or brain herniation. Diffuse subcortical and periventricular white matter hypodensities are most in favor with chronic small vessel disease. Cerebral ventricles: There is ex vacuo ventriculomegaly. Paranasal sinuses: Visualized sinuses are unremarkable. No fluid levels. Mastoid air cells: Visualized mastoid air cells are well aerated. Vasculature: Stable right intracranial carotid artery/right MCA stent. Intracranial atherosclerosis is present. Bones/joints: Unremarkable. No acute fracture. Soft tissues: Unremarkable. IMPRESSION: No acute intracranial pathology.
--- NOTE | 2021-09-07 16:24 | XR_ITS ---
PROCEDURE INFORMATION: Exam: XR Right Femur Exam date and time: 09/07/2021 4:24 PM Age: 76 years old Clinical indication: Injury or trauma; Fall; Blunt trauma; Hip; Right; Injury date: 09/07/21; Prior surgery; Surgery date: 6+ months; Surgery type: Thr TECHNIQUE: Imaging protocol: XR Right femur. Views: 2 views. COMPARISON: CR XR HIP RT 2-3V W/PELVIS 09/07/2021 4:32 PM FINDINGS: Bones/joints: Complete right hip arthroplasty. No evidence of hardware complications. Specifically, no evidence for hardware loosening or periprosthetic fractures. There is no evidence of acutely displaced fractures. There is no evidence of joint dislocation. No aggressive osseous lesions. Soft tissues: There is no significant soft tissue swelling. Vasculature: The vasculature demonstrates diffuse mild atherosclerotic calcification. IMPRESSION: No acute skeletal pathology or hardware complications.
--- NOTE | 2021-09-07 16:24 | XR_ITS ---
PROCEDURE INFORMATION: Exam: XR Right Hip Exam date and time: 09/07/2021 4:24 PM Age: 76 years old Clinical indication: Injury or trauma; Fall; Blunt trauma (contusions or hematomas); Right; Hip; Injury date: 09/07/21; Prior surgery; Surgery date: 6+ months; Surgery type: Thr TECHNIQUE: Imaging protocol: XR Right hip. Views: 2 or 3 views hip with pelvis when performed. COMPARISON: CR XR PELVIS 1-2V 07/16/2021 8:20 PM FINDINGS: Bones/joints: Bilateral complete hip arthroplasties. No evidence of hardware complications. Specifically, no evidence for hardware loosening or periprosthetic fractures. There is no evidence of acutely displaced fractures. There is no evidence of joint dislocation. No aggressive osseous lesions. Soft tissues: There is no significant soft tissue swelling. IMPRESSION: No acute skeletal pathology or hardware complications.
--- NOTE | 2021-09-07 16:25 | HMH.EDGENADL ---
ED Disposition Clinical Impression: Fall Qualifiers: Encounter type: initial encounter Qualified Code(s): W19.XXXA - Unspecified fall, initial encounter Closed head injury Qualifiers: Encounter type: initial encounter Qualified Code(s): S09.90XA - Unspecified injury of head, initial encounter Urinary tract infection Qualifiers: Urinary tract infection type: acute cystitis Hematuria presence: without hematuria Qualified Code(s): N30.00 - Acute cystitis without hematuria Disposition: Home, Self-Care Condition on Discharge: Fair Instructions: How to Prevent Falls, DI for Closed Head Injury, DI for Acute Cystitis Additional Instructions: You have been evaluated for fall, closed head injury. Please use care when standing and walking. Follow-up with your primary care doctor within 1 to 2 days for symptom recheck. Return to the emergency department for any new or worsening symptoms. Prescriptions: Nitrofurantoin Monohyd/M-Cryst [Nitrofurantoin Gonzales-Mcr 100 mg] 100 mg PO BID #10 cap Transmission Status: Received by [facility] Referrals: Dom Pindea MD [Primary Care Provider] - Time of Disposition: 17:26 - Critical Care Critical Care Time: No Attestation: On , the high probability of a clinically significant, sudden or life threatening deterioration of the following system(s) required my full and direct attention, intervention and personal management. The time I documented below is in addition to time spent performing reported procedures but includes the following listed in this critical care notation. Medical Decision Making - Medical Records Medical records reviewed: Yes: I reviewed the patient's medical records. - Nico Inquiry Pt receiving controlled substance: No Vital Signs: 09/07/21 16:27 Temperature 98 F Temperature Source Oral Pulse Rate [Left Radial] 62 Respiratory Rate 16 Blood Pressure [Right Arm] 101/62 L Blood Pressure Mean [Right Arm] 75 02 Sat by Pulse Oximetry 97 Oxygen Delivery Method Room Air - Lab Data Lab Results 09/07/21 17:19: Urine Color Yellow, Urine Appearance Turbid, Urine pH 9.0 H, Ur Specific [place]ynor 1.010, Urine Protein 2+, Urine Glucose (UA) Negative, Urine Ketones Negative, Urine Blood Trace-i, Urine Nitrate Negative, Urine Bilirubin Negative, Urine Urobilinogen 0.2, Ur Leukocyte Esterase 1+ A, Urine WBC 50-100, Ur Squamous Epith Cells 3-5, Triple Phos Crystals 2+, Urine Bacteria 4+ 09/07/21 17:19: WBC 12.5 H, RBC 4.01 L, Hgb 12.7, Hct 40.1, MCV 100.1 H, MCH 31.7 H, MCHC 31.7 L, RDW 13.4, Plt Count 266, MPV 9.6, Neut % (Auto) 70.8, Lymph % (Auto) 21.3, Gonzales % (Auto) 5.2, Eos % (Auto) 1.9, Baso % (Auto) 0.9, Neut # (Auto) 8.9 H, Lymph # (Auto) 2.7, Gonzales # (Auto) 0.7, Eos # (Auto) 0.2, Baso # (Auto) 0.1 09/07/21 17:19: Sodium 141, Potassium 4.9, Chloride 107, Carbon Dioxide 28, Anion Gap 10.9, BUN 32 H, Creatinine 1.30 H, Estimated Creat Clear 43, Estimated GFR 40 L, Est GFR ( Amer) 48 L, Glucose 119 H, Calcium 9.7, Total Bilirubin 0.4, AST 29, ALT 16, Alkaline Phosphatase 139 H, Total Protein 7.2, Albumin 4.2, Globulin 3.0, Albumin/Globulin Ratio 1.4 Result diagrams: 09/07/21 17:19 09/07/21 17:19 Orders (Tests/Meds): ED MEDICATIONS Generic Name Dose Route Start Last Admin Trade Name Freq PRN Reason Stop Dose Admin Ceftriaxone Sodium 1 gm/ 50 mls @ 100 mls/hr 09/07/21 18:00 09/07/21 18:04 Sodium Chloride IV 09/21/21 17:59 100 mls/hr Q24H MANE Administration ORDERS Category Date Time Status Urine Culture Stat Micro 09/07/21 17:19 Received ECG Request by /Morales Stat Y 09/07/21 16:29 Ordered - ECG Data Tracing #1 Sinus rhythm with ventricular rate of 62 beats minute. QRS 74, QTc 436. No ST segment changes. No arrhythmia. Medical Decision Narrative: In summary this is a 76-year-old female with history of dementia presenting to the emergency department with head injury and right hip pain after a fall. P
[2021-09-07 16:26] VITALS: BMI 27.8
[2021-09-07 16:27] VITALS: BP 101/62; PULSE 62; RESP 16; TEMP 36.6; O2SAT 97; BMI 27.8
--- NOTE | 2021-09-07 16:29 | ECG_ITS ---
APPROVED REPORT Exam: Resting ECG HR:62 bpm ECG Measurements Heart Rate 62 AXES AR 146 P 59 QRSd 74 QRS 25 QT 430 T 61 QTc 436 Conclusion Normal sinus rhythm Normal ECG Electronically signed by : Neftali Avalos MD 09/08/2021 09:00:12
--- NOTE | 2021-09-07 16:29 | XR_ITS ---
PROCEDURE INFORMATION: Exam: XR Chest Exam date and time: 09/07/2021 4:29 PM Age: 76 years old Clinical indication: Injury or trauma; Fall; Blunt trauma (contusions or hematomas); Injury date: 09/07/21 TECHNIQUE: Imaging protocol: XR of the chest. Views: 1 view. COMPARISON: CR XR CHEST AP 07/16/2021 8:20 PM FINDINGS: Airway: Patent Lungs: COPD/emphysema is appreciated. No acute interstitial or airspace disease. Pleural spaces: Unremarkable. No pleural effusion. No pneumothorax. Heart/Mediastinum: The heart is mildly enlarged. Vasculature: Tortuous and ectatic aorta. Calcified aortic knob. Bones/joints: Evidence for chronic right rotator cuff injury, as manifested by superior displacement of the humeral head in relation to the acromion. No acute skeletal abnormality or aggressive osseous lesion. IMPRESSION: No acute thoracic pathology identified.
[2021-09-07 17:29] LABS: Microscopic, Urine URINE MICROSCOPIC (MICROSCOPIC)
[2021-09-07 17:47] LABS: Appearance,Urine TURBID (Clear); Basophils # 0.1 K/mm3 (0-0.2); Basophils % 0.9 % (0.1-2.0); Bilirubin,Urine Negative (Negative); Blood, Urine TRACE-I (Negative); Color,Urine YELLOW (Yellow); Eosinophils # 0.2 K/mm3 (0.0-0.4); Eosinophils % 1.9 % (0.1-12.0); Glucose,Urine (UA) Negative (Negative); Hematocrit 40.1 % (37.0-47.0); Hemoglobin 12.7 g/dL (12.2-16.2); Ketones,Urine Negative (Negative); Leukocyte Esterase,Urine 1+ (Negative); Lymphocytes # 2.7 K/mm3 (0.7-4.5); Lymphocytes % 21.3 % (10-50); Mean Corpuscular HGB Conc 31.7 g/dL (31.8-35.4); Mean Corpuscular Hemoglobin 31.7 pg (27.0-31.2); Mean Corpuscular Volume 100.1 fl (81-99); Mean Platelet Volume 9.6 fl (7.4-10.4); Monocytes # 0.7 K/mm3 (0.1-1.0); Monocytes % 5.2 % (1.7-9.3); Neutrophils # 8.9 K/mm3 (1.8-7.8); Neutrophils % 70.8 % (37.0-80.0); Nitrate,Urine Negative (Negative); Platelet Count 266 K/mm3 (142-424); Protein,Urine 2+ (Negative); Red Blood Count 4.01 M/mm3 (4.20-5.40); Red Cell Distribution Width 13.4 % (11.5-17.5); Urobilinogen,Urine 0.2 EU/dl (0.2); White Blood Count 12.5 K/mm3 (4.8-10.8)
[2021-09-07 17:55] LABS: Alanine Aminotransferase 16 U/L (12-78); Albumin Level 4.2 g/dl (3.5-5.0); Albumin/Globulin Ratio 1.4 (1.1-1.8); Alkaline Phosphatase 139 U/L (38-126); Anion Gap 10.9 mEq/L (5-15); Aspartate Amino Transferase 29 U/L (14-36); Bilirubin,Total 0.4 mg/dl (0.2-1.3); Blood Urea Nitrogen 32 mg/dl (7-17); Calcium 9.7 mg/dl (8.4-10.2); Carbon Dioxide 28 mmol/L (22.0-30.0); Chloride 107 mmol/L (98-107); Creatinine Clearance Estimated 43 mL/min (50-200); Estimated Glomerular Filt Rate 40 ml/min (>60); GFR (African American) 48 ML/MIN (>60); Glucose 119 mg/dl (74-100); Potassium 4.9 mmoL/L (3.5-5.1); Sodium 141 mmol/L (136-145); Total Protein,Serum 7.2 g/dl (6.3-8.2)
[2021-09-07 17:56] LABS: Bacteria,Urine 4+ /lpf; Triple Phosphate Crystal,Urine 2+ /lpf; WBC,Urine 50-100 #/hpf (0-3)
[2021-09-07 19:00] VITALS: BP 152/97; O2SAT 95
[2021-09-07 19:33] VITALS: BP 117/79; PULSE 69; O2SAT 93
[2021-09-07 20:05] VITALS: BP 127/75; PULSE 70; RESP 16; TEMP 36.7; O2SAT 95
--- NOTE | 2021-09-07 20:10 | PC.NURSE ---
EMS notified that pt is ready to go back to [place], they are unable to transport at this time d/t other truck out on a run
--- NOTE | 2021-09-07 20:29 | PC.NURSE ---
walked pt to [facility] with 2x assist and she tolerated well with ambulation
== END 2021-09-07 23:23 | disposition home or self-care (01) ==
PROVIDERS: Emergency Provider Emergency Medicine; PCP Emergency Medicine
DX: S09.90XA Unspecified injury of head, initial encounter (principal); M25.551 Pain in right hip; W01.0XXA Fall on same level from slipping, tripping and stumbling without subsequent striking against object, initial encounter; Y92.122 Bedroom in nursing home as the place of occurrence of the external cause; I50.9 Heart failure, unspecified; I10 Essential (primary) hypertension; J44.9 Chronic obstructive pulmonary disease, unspecified; F03.90 Unspecified dementia, unspecified severity, without behavioral disturbance, psychotic disturbance, mood disturbance, and anxiety; F41.8 Other specified anxiety disorders; Z88.2 Allergy status to sulfonamides; Z88.7 Allergy status to serum and vaccine; Z88.5 Allergy status to narcotic agent; Z88.0 Allergy status to penicillin; Z79.899 Other long term (current) drug therapy
CPT/HCPCS: 70450; 71045; 73502; 73552; 80053; 81001; 85025; 87086; 87088; 87186; 93005; 96365; 99283; J0696

== ENCOUNTER 2021-10-02 05:44 | Emergency (ER) | payer MEDICARE, MEDICAID, SELFPAY ==
[2021-10-02 05:25] VITALS: BP 117/68; PULSE 68; RESP 18; TEMP 36.5; O2SAT 95; BMI 27.3
--- NOTE | 2021-10-02 05:38 | CT_ITS ---
PROCEDURE INFORMATION: Exam: CT Pelvis Without Contrast; Skeletal Exam date and time: 10/02/2021 5:38 AM Age: 76 years old Clinical indication: Injury or trauma; Fall; Prior surgery; Additional info: Fall, unwitnessed TECHNIQUE: Imaging protocol: Computed tomography images of the pelvis without contrast. Exam focused on the skeletal structures. Radiation optimization: All CT scans at this facility use at least one of these dose optimization techniques: automated exposure control; mA and/or kV adjustment per patient size (includes targeted exams where dose is matched to clinical indication); or iterative reconstruction. COMPARISON: CT ABDOMEN PELVIS W CON 10/31/2020 3:23 PM FINDINGS: Bladder: The bladder is distended. Bones/joints: The patient is status post bilateral hip arthroplasties. These appear to be in good position. The patient is diffusely osteopenic. Degenerative changes of the lumbar spine are noted. Soft tissues: Unremarkable. IMPRESSION: 1. No fracture or dislocation noted. 2. The patient is status post bilateral hip arthroplasty, this does cause beam hardening artifact in the pelvis limiting sensitivity.
--- NOTE | 2021-10-02 05:38 | CT_ITS ---
PROCEDURE INFORMATION: Exam: CT Head Without Contrast Exam date and time: 10/02/2021 5:38 AM Age: 76 years old Clinical indication: Injury or trauma; Fall; Additional info: Fall, unwitnessed TECHNIQUE: Imaging protocol: Computed tomography of the head without contrast. Radiation optimization: All CT scans at this facility use at least one of these dose optimization techniques: automated exposure control; mA and/or kV adjustment per patient size (includes targeted exams where dose is matched to clinical indication); or iterative reconstruction. COMPARISON: No relevant prior studies available. FINDINGS: Brain: Chronic microvascular ischemic disease without acute intraparenchymal hemorrhage and no obvious acute ischemic stroke. No intra-or extra-axial fluid collection, no supra-or infratentorial mass, no mass effect or midline shift. Cerebral ventricles: Mildly prominent ventricles, sulci and basal cisterns without evidence of hydrocephalus. Paranasal sinuses: Mild mucoperiosteal thickening in the visualized paranasal sinuses. Mastoid air cells: No mastoid effusion. Bones/joints: Hyperostosis frontalis interna. Soft tissues: NA IMPRESSION: 1. Chronic microvascular disease and generalized atrophy without acute intracranial abnormality. 2. No evidence of acute hemorrhage, mass lesion or obvious acute ischemic infarction.
--- NOTE | 2021-10-02 05:46 | CT_ITS ---
PROCEDURE INFORMATION: Exam: CT Cervical Spine Without Contrast Exam date and time: 10/02/2021 5:46 AM Age: 76 years old Clinical indication: Injury or trauma; Fall TECHNIQUE: Imaging protocol: Computed tomography images of the cervical spine without contrast. Radiation optimization: All CT scans at this facility use at least one of these dose optimization techniques: automated exposure control; mA and/or kV adjustment per patient size (includes targeted exams where dose is matched to clinical indication); or iterative reconstruction. COMPARISON: No relevant prior studies available. FINDINGS: Bones/joints: Coarse bony trabecular pattern suggestive of diffuse osteopenia. Loss of normal curvature of the spine with degenerative spondylolisthesis. No evidence of acute compression fracture or deformity. No discernible displaced fracture involving the vertebral bodies or their posterior elements. Facet joints are normally aligned without facetal dislocation or subluxation. No fracture of the dens, chronic degenerative changes at the lateral C1-C2 articulation, atlantooccipital joints and central atlantodental joint. Discs/Spinal canal/Neural foramina: Moderately advanced chronic degenerative changes in the cervical spine. Lungs: NA Soft tissues: Pre-and paravertebral soft tissues are grossly normal. Atherosclerotic calcification of the carotid arteries. Indeterminate LEFT thyroid nodule. IMPRESSION: Moderately advanced chronic degenerative changes without an acute cervical spine injury or abnormality. COMMENTS: Consistent with the [employer]'s Incidental Findings Committee white paper (J Am Stewart Radiol 2015): In patients aged 35 years and older with an incidental thyroid nodule equal to or greater than 1.[address], MRI or extrathyroidal US, further evaluation with dedicated thyroid US is recommended for patients with normal life expectancy and without comorbidities. For smaller nodules without suspicious features, no further evaluation or follow up is recommended.
--- NOTE | 2021-10-02 06:58 | HMH.EDFALL ---
ED Disposition Clinical Impression: Fall, Sprain and strain Disposition: Home, Self-Care Condition on Discharge: Good Additional Instructions: Please follow up with your primary care physician in 2-3 days for further management. Please use tylenol and ibuprofen for pain control. Recommend ambulating with assistance to avoid future falls and to walk with felder or walker. Please also discuss with assisted , physical therapy to help strengthen your your legs. Please return if you fall again, chest pain, abdominal pain, difficulty ambulating or any other concerning symptoms. Please also follow up with your PCP regarding incidental thyroid nodule and further management. Referrals: Dom Pineda MD [Primary Care Provider] - Time of Disposition: 05:45 - Critical Care Critical Care Time: No Attestation: On 10/02/21, the high probability of a clinically significant, sudden or life threatening deterioration of the following system(s) required my full and direct attention, intervention and personal management. The time I documented below is in addition to time spent performing reported procedures but includes the following listed in this critical care notation. Medical Decision Making - Medical Records Medical records reviewed: Yes: I reviewed the patient's medical records. - Nico Inquiry Pt receiving controlled substance: No Vital Signs: 10/02/21 05:25 10/02/21 07:02 Temperature 97.7 F Temperature Source Oral Pulse Rate [Left] 68 Respiratory Rate 18 Blood Pressure [Right Arm] 117/68 Blood Pressure Mean [Right Arm] 84 02 Sat by Pulse Oximetry 95 Oxygen Delivery Method Room Air - Lab Data Lab results reviewed: Yes: I reviewed the patient's lab results. Orders (Tests/Meds): ED MEDICATIONS Discontinued Medications Generic Name Dose Route Start Last Admin Trade Name Celia PRN Reason Stop Dose Admin Acetaminophen 500 mg 10/02/21 05:40 10/02/21 06:57 Acetaminophen 500mg Tab PO 10/02/21 05:41 500 mg ONCE ONE Administration Medical Decision Narrative: Miss Bae is a 76 yo female w/ multiple comorbidities including dementia confused at baseline and arthroplasty with chronic instability who presents to the ED for unwitnessed fall with associated (L) hip pain. Patient is neurovascularly intact and hemodynamically stable on arrival. No open lacerations or abrasions. Patient is well appearing. Moving all extremities. Patient able to bear weight on exam. Differentials to consider include: MSK, fractures, dislocations, acute intracranial hemorrhage, spinal injury. CT head, CT C spine and CT bony pelvis is negative for any acute pathology or fracture, incidental thyroid nodule seen, placed in discharge paperwork for assisted to fu on. Patient is given tylenol for pain control. Patient is discharged and assisted informed to allow patient to get up with assistance only to prevent recurrent falls, also PT/OT. Patient is discharged in stable condition. Fall HPI - General Chief Complaint: Fall Stated Complaint: fall Time Seen by Provider: 10/02/21 05:45 Mode of Arrival: EMS Source of Information: EMS, Medical Record Limitations: No Limitations Description of Symptoms (Recalled from ER Triage Doc. by RN): vivi reports that pt had an unwitnessed fall - History of Present Illness HPI Narrative: Miss Bae is a 76 yo female w/ PMH for dementia, confused at baseline, inbalance, hip arthroplastiy and multiple other comorbidities who presents to the ED for unwitnessed fall. Patient was found by nursing care facility staff on ground. Patient reports she is not sure if she hit her head, _LOC. Patient was able to bear weight following event, but reports (L) hip pain. Patient denies headache, neck pain, back pain, chest pain, abdominal pain or other extremity pain. No open lacerations or abrasions. Patient is confused at baseline, no worse than usual. No sensory or motor changes on exam. No blo
[2021-10-02 08:30] VITALS: BP 128/71; PULSE 60; RESP 18; TEMP 36.5; O2SAT 95
== END 2021-10-02 08:30 | disposition home or self-care (01) ==
PROVIDERS: Emergency Provider Student in an Organized Health Care Education/Training Program; PCP Emergency Medicine
DX: S73.102A Unspecified sprain of left hip, initial encounter (principal); W01.0XXA Fall on same level from slipping, tripping and stumbling without subsequent striking against object, initial encounter; Y92.129 Unspecified place in nursing home as the place of occurrence of the external cause; J44.9 Chronic obstructive pulmonary disease, unspecified; E78.5 Hyperlipidemia, unspecified; I25.10 Atherosclerotic heart disease of native coronary artery without angina pectoris; I10 Essential (primary) hypertension; F03.90 Unspecified dementia, unspecified severity, without behavioral disturbance, psychotic disturbance, mood disturbance, and anxiety; Z88.0 Allergy status to penicillin; Z88.2 Allergy status to sulfonamides; Z88.5 Allergy status to narcotic agent; Z88.7 Allergy status to serum and vaccine; Z79.899 Other long term (current) drug therapy
CPT/HCPCS: 70450; 72125; 72192; 99281

== ENCOUNTER → 2021-12-07 02:08 | Outpatient (CLI) | payer MEDICARE, MEDICAID, SELFPAY | PROVIDERS: Visit Provider Emergency Medicine | DX: Z01.812 Encounter for preprocedural laboratory examination (principal); Z11.52 Encounter for screening for COVID-19 | CPT/HCPCS: C9803; U0003; U0005 ==

== ENCOUNTER 2021-12-10 08:38 | Day surgery (SDC) | payer MEDICARE, MEDICAID, SELFPAY ==
[2021-12-10 09:00] VITALS: BP 98/53; PULSE 58; RESP 18; TEMP 36.2; O2SAT 97; BMI 29.0
[2021-12-10 10:42] VITALS: BP 111/74; PULSE 53; RESP 14; TEMP 36.8; O2SAT 96
== END 2021-12-10 10:54 | disposition home or self-care (01) ==
LOC: OR 08:43
PROVIDERS: PCP Emergency Medicine; Visit Provider Ophthalmology
DX: H25.813 Combined forms of age-related cataract, bilateral (principal); H02.831 Dermatochalasis of right upper eyelid; H02.834 Dermatochalasis of left upper eyelid; F41.9 Anxiety disorder, unspecified; J44.9 Chronic obstructive pulmonary disease, unspecified; Z72.0 Tobacco use; Z88.5 Allergy status to narcotic agent; Z88.0 Allergy status to penicillin; Z88.2 Allergy status to sulfonamides; Z88.7 Allergy status to serum and vaccine
CPT/HCPCS: 66984; V2632

== ENCOUNTER → 2021-12-22 12:03 | Outpatient (CLI) | payer MEDICARE, MEDICAID, SELFPAY | PROVIDERS: Visit Provider Emergency Medicine | DX: Z01.812 Encounter for preprocedural laboratory examination (principal); Z11.52 Encounter for screening for COVID-19 | CPT/HCPCS: C9803; U0003; U0005 ==

== ENCOUNTER 2021-12-24 08:59 | Day surgery (SDC) | payer MEDICARE, MEDICAID, SELFPAY ==
[2021-12-24 09:18] VITALS: BP 93/52; PULSE 61; RESP 18; TEMP 36.4; O2SAT 97; BMI 25.8
[2021-12-24 10:27] VITALS: RESP 16
[2021-12-24 10:43] VITALS: BP 127/72; PULSE 59; RESP 18; TEMP 36.1; O2SAT 96
[2021-12-24 10:57] VITALS: BP 127/72; PULSE 59; RESP 18; O2SAT 96
== END 2021-12-24 10:57 | disposition home or self-care (01) ==
PROVIDERS: PCP Emergency Medicine; Visit Provider Ophthalmology
DX: H25.813 Combined forms of age-related cataract, bilateral (principal); H02.831 Dermatochalasis of right upper eyelid; H02.834 Dermatochalasis of left upper eyelid; J44.9 Chronic obstructive pulmonary disease, unspecified; F41.9 Anxiety disorder, unspecified; Z72.0 Tobacco use; I25.10 Atherosclerotic heart disease of native coronary artery without angina pectoris; I73.9 Peripheral vascular disease, unspecified; I35.1 Nonrheumatic aortic (valve) insufficiency; I51.89 Other ill-defined heart diseases; Z88.0 Allergy status to penicillin; Z88.2 Allergy status to sulfonamides; H21.81 Floppy iris syndrome
CPT/HCPCS: 66982; V2632

== ENCOUNTER 2022-03-29 00:19 | Emergency (ER) | payer MEDICARE, MEDICAID, SELFPAY ==
[2022-03-29 00:19] VITALS: BP 122/77; PULSE 67; RESP 16; TEMP 36.8; O2SAT 96; BMI 23.8
--- NOTE | 2022-03-29 00:23 | XR_ITS ---
PROCEDURE INFORMATION: Exam: XR Chest Exam date and time: 03/29/2022 1:12 AM Age: 76 years old Clinical indication: Injury or trauma; Fall; Blunt trauma (contusions or hematomas) TECHNIQUE: Imaging protocol: Radiologic exam of the chest. Views: 1 view. COMPARISON: CR XR CHEST PORTABLE 09/07/2021 4:31 PM FINDINGS: Lungs: Mild widespread pulmonary reticular opacities in lungs correlate with atelectasis and scarring on CT. Pleural spaces: Unremarkable. No pleural effusion. No pneumothorax. Heart/Mediastinum: Borderline cardiomegaly. Enlarged pulmonary arteries likely represent chronic pulmonary arterial hypertension. Vasculature: Vascular calcifications. Bones/joints: Unremarkable. IMPRESSION: No acute intrathoracic organ injury.
--- NOTE | 2022-03-29 00:23 | CT_ITS ---
PROCEDURE INFORMATION: Exam: CT Cervical Spine Without Contrast Exam date and time: 03/29/2022 12:58 AM Age: 76 years old Clinical indication: Injury or trauma; Fall; Blunt trauma; Additional info: Fall, age >65 TECHNIQUE: Imaging protocol: Computed tomography of the cervical spine without contrast. Radiation optimization: All CT scans at this facility use at least one of these dose optimization techniques: automated exposure control; mA and/or kV adjustment per patient size (includes targeted exams where dose is matched to clinical indication); or iterative reconstruction. COMPARISON: CT CERVICAL SPINE WO CON 10/02/2021 5:47 AM FINDINGS: Bones/joints: No acute fracture. Normal alignment. Discs/Spinal canal/Neural foramina: Moderate to severe left neural foraminal stenosis from C3 to C7. Moderate right neural foraminal stenosis from C4-C6. Multilevel degenerative changes of the cervical spine producing multiple levels of mild and moderate spinal canal stenosis. Lungs: Bilateral apical scarring. Thyroid: Thyroid nodules measure up to 1.6 cm. Ultrasound has been performed previously. Follow-up imaging as previously indicated by patient's condition. Soft tissues: Unremarkable. IMPRESSION: No acute fracture or malalignment of the cervical spine. COMMENTS: Consistent with the [employer]'s Incidental Findings Committee white paper (J Am Stewart Radiol 2015): In patients aged 35 years and older with an incidental thyroid nodule equal to or greater than 1.[address], MRI or extrathyroidal US, further evaluation with dedicated thyroid US is recommended for patients with normal life expectancy and without comorbidities. For smaller nodules without suspicious features, no further evaluation or follow up is recommended.
--- NOTE | 2022-03-29 00:23 | CT_ITS ---
PROCEDURE INFORMATION: Exam: CT Head Without Contrast Exam date and time: 03/29/2022 12:55 AM Age: 76 years old Clinical indication: Injury or trauma; Fall; Blunt trauma (contusions or hematomas); Without loss of consciousness; Additional info: Fall, age >65 TECHNIQUE: Imaging protocol: Computed tomography of the head without contrast. Radiation optimization: All CT scans at this facility use at least one of these dose optimization techniques: automated exposure control; mA and/or kV adjustment per patient size (includes targeted exams where dose is matched to clinical indication); or iterative reconstruction. COMPARISON: CT HEAD/BRAIN WO CON 10/02/2021 5:47 AM FINDINGS: Brain: Moderate chronic brain volume loss and chronic small vessel ischemic changes. Cerebral ventricles: No ventriculomegaly. Paranasal sinuses: Visualized sinuses are unremarkable. No fluid levels. Mastoid air cells: Visualized mastoid air cells are well aerated. Orbital cavities: Status post bilateral cataract surgery. Bones/joints: Hyperostosis frontalis interna. Soft tissues: Unremarkable. Vasculature: Right ICA stent is noted. IMPRESSION: No acute intracranial findings.
--- NOTE | 2022-03-29 00:26 | CT_ITS ---
PROCEDURE INFORMATION: Exam: CT Thoracic Spine Without Contrast Exam date and time: 03/29/2022 1:01 AM Age: 76 years old Clinical indication: Injury or trauma; Fall; Blunt trauma (contusions or hematomas) TECHNIQUE: Imaging protocol: Computed tomography of the thoracic spine without contrast. Radiation optimization: All CT scans at this facility use at least one of these dose optimization techniques: automated exposure control; mA and/or kV adjustment per patient size (includes targeted exams where dose is matched to clinical indication); or iterative reconstruction. COMPARISON: CT CERVICAL SPINE WO CON 03/29/2022 12:58 AM FINDINGS: Bones/joints: No acute fracture. Normal alignment. Discs/Spinal canal/Neural foramina: No significant disc protrusion. No severe spinal canal stenosis. No significant neural foraminal narrowing. Soft tissues: Unremarkable. Vasculature: The aorta demonstrates moderate atherosclerotic disease. Lungs: Patchy posterior atelectasis and peripheral scarring in the lungs. Heart: Coronary artery calcifications. IMPRESSION: No acute fracture or malalignment of the thoracic spine.
--- NOTE | 2022-03-29 00:26 | CT_ITS ---
PROCEDURE INFORMATION: Exam: CT Lumbar Spine Without Contrast Exam date and time: 03/29/2022 1:04 AM Age: 76 years old Clinical indication: Injury or trauma; Fall; Blunt trauma (contusions or hematomas); Prior surgery; Surgery date: 6+ months; Surgery type: Total hip replacement TECHNIQUE: Imaging protocol: Computed tomography of the lumbar spine without contrast. Radiation optimization: All CT scans at this facility use at least one of these dose optimization techniques: automated exposure control; mA and/or kV adjustment per patient size (includes targeted exams where dose is matched to clinical indication); or iterative reconstruction. COMPARISON: CT LUMBAR SPINE WO CON 10/31/2020 3:18 PM FINDINGS: Bones/joints: No acute fracture. Normal alignment. Discs/Spinal canal/Neural foramina: No significant disc protrusion. No severe spinal canal stenosis. No significant neural foraminal narrowing. Lungs: Patchy posterior atelectasis and peripheral scarring in the lungs. Heart: Coronary artery calcifications. Vasculature: The aorta demonstrates moderate atherosclerotic disease. Soft tissues: Unremarkable. IMPRESSION: No acute fracture or malalignment of the thoracic spine.
[2022-03-29 00:30] VITALS: BP 130/78; PULSE 61; RESP 13; O2SAT 95
--- NOTE | 2022-03-29 00:59 | PC.NURSE ---
Pt gone to RAD
[2022-03-29 01:03] LABS: Basophils # 0.1 K/mm3 (0-0.2); Basophils % 1.4 % (0.1-2.0); Eosinophils # 0.3 K/mm3 (0.0-0.4); Hematocrit 42.2 % (37.0-47.0); Lymphocytes # 2.5 K/mm3 (0.7-4.5); Lymphocytes % 29.4 % (10-50); Mean Corpuscular HGB Conc 30.8 g/dL (31.8-35.4); Mean Corpuscular Hemoglobin 31.9 pg (27.0-31.2); Mean Corpuscular Volume 103.5 fl (81-99); Mean Platelet Volume 9.7 fl (7.4-10.4); Monocytes # 0.5 K/mm3 (0.1-1.0); Monocytes % 6.3 % (1.7-9.3); Neutrophils % 58.9 % (37.0-80.0); Platelet Count 189 K/mm3 (142-424); Red Blood Count 4.08 M/mm3 (4.20-5.40); White Blood Count 8.5 K/mm3 (4.8-10.8)
[2022-03-29 01:07] LABS: Chloride 111 mmol/L (98-107); Potassium 4.3 mmoL/L (3.5-5.1); Sodium 142 mmol/L (136-145)
[2022-03-29 01:10] LABS: Alanine Aminotransferase 21 U/L (12-78); Albumin Level 3.6 g/dl (3.5-5.0); Albumin/Globulin Ratio 1.3 (1.1-1.8); Alkaline Phosphatase 190 U/L (38-126); Anion Gap 6.3 mEq/L (5-15); Aspartate Amino Transferase 31 U/L (14-36); Blood Urea Nitrogen 26 mg/dl (7-17); Carbon Dioxide 29 mmol/L (22.0-30.0); Creatinine Clearance Estimated 41 mL/min (50-200); Estimated Glomerular Filt Rate 48 ml/min (>60); GFR (African American) 58 ML/MIN (>60); Globulin 2.7 g/dL (1.3-3.2); Total Protein,Serum 6.3 g/dl (6.3-8.2)
[2022-03-29 01:11] LABS: Bilirubin,Total < 0.1 mg/dl (0.2-1.3); Calcium 9.2 mg/dl (8.4-10.2); Glucose 106 mg/dl (74-100)
[2022-03-29 01:15] LABS: Activated Partial Thrombo Time 28.4 seconds (22.8-30.6); INR 0.96 (0.9-1.1); Prothrombin Time 10.9 seconds (10.1-12.5)
--- NOTE | 2022-03-29 01:15 | XR_ITS ---
PROCEDURE INFORMATION: Exam: XR Right Hip Exam date and time: 03/29/2022 1:15 AM Age: 76 years old Clinical indication: Injury or trauma; Fall; Blunt trauma (contusions or hematomas); Right; Prior surgery; Surgery date: 6+ months; Surgery type: Total hip replacement TECHNIQUE: Imaging protocol: Radiologic exam of the Right hip. Views: 2 or 3 views hip with pelvis when performed. COMPARISON: CT BONY PELVIS 10/02/2021 5:50 AM FINDINGS: Bones/joints: Status post total right hip arthroplasty. The hardware appears intact. No acute fracture or dislocation. Soft tissues: Unremarkable. IMPRESSION: No acute fracture or dislocation. If the patient is unable to bear weight, consider cross-sectional imaging to exclude occult fracture.
--- NOTE | 2022-03-29 01:16 | XR_ITS ---
PROCEDURE INFORMATION: Exam: XR Left Hip Exam date and time: 03/29/2022 1:14 AM Age: 76 years old Clinical indication: Injury or trauma; Fall; Blunt trauma (contusions or hematomas); Left; Prior surgery; Surgery date: 6+ months; Surgery type: Total hip replacement TECHNIQUE: Imaging protocol: Radiologic exam of the Left hip. Views: 2 or 3 views hip with pelvis when performed. COMPARISON: CT BONY PELVIS 10/02/2021 5:50 AM FINDINGS: Bones/joints: Status post total left hip arthroplasty. The hardware appears intact. No acute fracture or dislocation. Soft tissues: Unremarkable. IMPRESSION: No acute fracture or dislocation. If the patient is unable to bear weight, consider cross-sectional imaging to exclude occult fracture.
--- NOTE | 2022-03-29 01:33 | PC.NURSE ---
Pt back from RAD
--- NOTE | 2022-03-29 01:43 | HMH.EDGENADL ---
ED Disposition Clinical Impression: Fall from standing Disposition: Xfer SNF Condition on Discharge: Good Instructions: How to Prevent Falls Additional Instructions: Please follow-up with your primary care provider over the next 72 hours. Take Tylenol and ibuprofen at home as needed for pain. Return to the emergency department for any new or worsening symptoms. Referrals: Dom Pineda MD [Primary Care Provider] - - Critical Care Critical Care Time: No Attestation: On 03/29/22, the high probability of a clinically significant, sudden or life threatening deterioration of the following system(s) required my full and direct attention, intervention and personal management. The time I documented below is in addition to time spent performing reported procedures but includes the following listed in this critical care notation. Medical Decision Making - Nico Inquiry Pt receiving controlled substance: No Vital Signs: 03/29/22 00:19 03/29/22 02:22 Temperature 98.3 F 98.8 F Temperature Source Oral Oral Pulse Rate 88 Pulse Rate [Left Radial] 67 Respiratory Rate 16 16 Blood Pressure 147/90 H Blood Pressure [Right Radial Artery] 122/77 Blood Pressure Mean [Right Radial Artery] 92 Blood Pressure Source [Right Radial Artery] Automatic Cuff Blood Pressure Position Sitting Blood Pressure Position [Right Radial Artery] Sitting 02 Sat by Pulse Oximetry 96 Oxygen Delivery Method Room Air Room Air - Lab Data Lab Results 03/29/22 00:55: WBC 8.5, RBC 4.08 L, Hgb 13.0, Hct 42.2, MCV 103.5 H, MCH 31.9 H, MCHC 30.8 L, RDW 13.0, Plt Count 189, MPV 9.7, Neut % (Auto) 58.9, Lymph % (Auto) 29.4, Garrard % (Auto) 6.3, Eos % (Auto) 4.0, Baso % (Auto) 1.4, Neut # (Auto) 5.0, Lymph # (Auto) 2.5, Garrard # (Auto) 0.5, Eos # (Auto) 0.3, Baso # (Auto) 0.1 03/29/22 00:55: PT 10.9, INR 0.96, APTT 28.4 03/29/22 00:55: Sodium 142, Potassium 4.3, Chloride 111 H, Carbon Dioxide 29, Anion Gap 6.3, BUN 26 H, Creatinine 1.10 H, Estimated Creat Clear 41, Estimated GFR 48 L, Est GFR ( Amer) 58 L, Glucose 106 H, Calcium 9.2, Total Bilirubin < 0.1 L, AST 31, ALT 21, Alkaline Phosphatase 190 H, Total Protein 6.3, Albumin 3.6, Globulin 2.7, Albumin/Globulin Ratio 1.3 Result diagrams: 03/29/22 00:55 03/29/22 00:55 Orders (Tests/Meds): ED MEDICATIONS Generic Name Dose Route Start Last Admin Trade Name Freq PRN Reason Stop Dose Admin Sodium Chloride 10 ml 03/29/22 01:06 Sodium Chloride 0.9% 10ml Flush Syringe IV 04/28/22 01:05 NEEDED PRN Maintain IV Site Medical Decision Narrative: In summary, this patient is a 76-year-old female with history of dementia presenting to the emergency department following a witnessed ground-level fall. Differential diagnoses include head trauma, neck trauma, back trauma, polytrauma. The patient is clinically well-appearing on physical exam and is in no acute distress. Work-up including CT scan of the head without contrast, CT C/T/L-spine, chest x-ray, and pelvic/hip x-rays were obtained. Basic labs including CBC and BMP were obtained as well as coags. No other indication for labs or imaging based on exam or history at this time. On reassessment, the patient is resting comfortably. Labs do not demonstrate any concerning abnormalities. They appear to be around the patient's baseline. Imaging did not demonstrate any acute injuries. Patient was able to tolerate rolling in bed for a change without any pain or issues. No significant tenderness to palpation on repeat exam. She appears to be neurologically at her baseline. Given this, feel that she is appropriate for discharge. She was transported back to her care home facility in stable condition. General Adult HPI - General Chief complaint: Fall Stated complaint: Fall Time Seen by Provider: 03/29/22 00:25 Mode of Arrival: EMS Source of Information: EMS Limitations: DEMENTIA Description of Symptoms (Recalled from E
--- NOTE | 2022-03-29 01:57 | PC.NURSE ---
Pt cleaned up, brief changed, powder applied to red areas, and repositioned for comfort. No other needs at this time.
[2022-03-29 01:58] VITALS: BP 159/90; PULSE 61; RESP 12; O2SAT 99
[2022-03-29 02:00] VITALS: BP 147/90; PULSE 58; RESP 12; O2SAT 95
[2022-03-29 02:22] VITALS: BP 147/90; PULSE 88; RESP 16; TEMP 37.1; O2SAT 95
--- NOTE | 2022-03-29 02:32 | PC.NURSE ---
REPORT CALLED TO PIERRE BOSE. PT MADE AWARE OF PLAN TO RETURN TO ALF. PT DENIES PAIN. NO ACUTE DISTRESS NOTED.
--- NOTE | 2022-03-29 18:28 | ECG_ITS ---
APPROVED REPORT Exam: Resting ECG HR:63 bpm ECG Measurements Heart Rate 63 AXES KS 152 P 68 QRSd 77 QRS 39 QT 421 T 67 QTc 428 Conclusion SINUS RHYTHM NORMAL ECG UNCONFIRMED REPORT Electronically signed by : Neftali Avalos MD 03/30/2022 08:00:15
== END 2022-03-29 02:51 ==
PROVIDERS: Emergency Provider Emergency Medicine; PCP Emergency Medicine
DX: M54.9 Dorsalgia, unspecified (principal); W19.XXXA Unspecified fall, initial encounter; Y92.121 Bathroom in nursing home as the place of occurrence of the external cause; F03.90 Unspecified dementia, unspecified severity, without behavioral disturbance, psychotic disturbance, mood disturbance, and anxiety; Z79.82 Long term (current) use of aspirin
CPT/HCPCS: 70450; 71045; 72125; 72128; 72131; 73502; 80053; 85025; 85610; 85730; 93005

== ENCOUNTER 2022-03-29 17:44 | Emergency (ER) | payer MEDICARE, MEDICAID, SELFPAY ==
[2022-03-29 17:40] VITALS: BP 146/81; PULSE 63; RESP 16; TEMP 37; O2SAT 98; BMI 24.0
--- NOTE | 2022-03-29 18:29 | CT_ITS ---
PROCEDURE INFORMATION: Exam: CT Head Without Contrast Exam date and time: 03/29/2022 6:54 PM Age: 76 years old Clinical indication: Injury or trauma; Patient HX: New fall TECHNIQUE: Imaging protocol: Computed tomography of the head without contrast. Radiation optimization: All CT scans at this facility use at least one of these dose optimization techniques: automated exposure control; mA and/or kV adjustment per patient size (includes targeted exams where dose is matched to clinical indication); or iterative reconstruction. COMPARISON: CT HEAD/BRAIN WO CON 03/29/2022 12:55 AM FINDINGS: Brain: Mild diffuse cerebral atrophy is consistent with this patient's age. The cortical/white matter interfaces are preserved throughout the brain. The visualized basilar cisterns are patent. There is no evidence of acute hemorrhage within the brain parenchyma or the subarachnoid space. There is mild heterogeneity and patchy areas of bilateral decreased attenuation of the white matter consistent with chronic white matter ischemic change. There is no evidence of mass, mass effect or midline shift. Cerebral ventricles: The ventricular system is normal in size and distribution. Paranasal sinuses: See Nasal cavity finding. Mastoid air cells: The mastoid sinuses are normal. Orbital cavities: The orbits are normal. Nasal cavity: There is mild rightward nasal septal deviation with nasal septal spur formation. A trace amount of mucoperiosteal thickening involves the posterior left maxillary sinus. Bones/joints: Benign hyperostosis frontalis is present. There is no evidence of acute fracture. Soft tissues: No significant soft tissue edema. Vasculature: A right ICA stent is again noted. IMPRESSION: No acute intracranial abnormality. Stable exam.
--- NOTE | 2022-03-29 18:30 | CT_ITS ---
PROCEDURE INFORMATION: Exam: CT Cervical Spine Without Contrast Exam date and time: 03/29/2022 6:56 PM Age: 76 years old Clinical indication: Injury or trauma; Patient HX: New fall; Additional info: Neck pain TECHNIQUE: Imaging protocol: Computed tomography of the cervical spine without contrast. Radiation optimization: All CT scans at this facility use at least one of these dose optimization techniques: automated exposure control; mA and/or kV adjustment per patient size (includes targeted exams where dose is matched to clinical indication); or iterative reconstruction. COMPARISON: CT CERVICAL SPINE WO CON 03/29/2022 12:58 AM FINDINGS: Bones/joints: There is mild diffuse osteopenia. Vertebral body heights are preserved without compression fractures. There is slight anterior spondylolisthesis of C5 on C6, and C7 on T1. Alignment is otherwise intact from skull base to T1. The atlantooccipital articulations are preserved. The facet joints are appropriately aligned. The predental interval appears normal. Discs/Spinal canal/Neural foramina: The cervical spine demonstrates moderate discogenic and spondylitic degenerative changes at multiple levels. This is predominantly manifest by intervertebral disc space narrowing, endplate discogenic degenerative changes and marginal osteophytes. This is most prominent from C2-C3 C6, indicated C7-T1. There is [id number] bilateral neural foraminal narrowing at the C3-C4 level due to marginal osteophytes. There is severe neural foraminal narrowing at the C4-C5 level due to marginal osteophytes, greater on the left. There is severe neural foraminal narrowing at the C5-C6 level due to marginal osteophytes. There is severe left and moderate right neural foraminal narrowing at the C6-C7 level. There is moderate to severe left neural foraminal narrowing at the C7-T1 level. No large focal disc protrusion. There is mild central canal stenosis at the C3-C4 level. Mastoid air cells: The mastoid sinuses are normal. Lungs: The visualized portions of the lung apices are normal. Thyroid: 17 mm hypodensity in the left thyroid lobe with small punctate calcification is nonspecific. Vasculature: Stable right intracranial carotid artery/right SCA stent is again noted. The aorta demonstrates moderate atherosclerotic calcification. The ascending thoracic aorta is at the upper limits of normal measuring 3.6 x 3.7 cm. Soft tissues: No significant soft tissue edema. No focal hematomas. Other findings: The visualized portions of the sinuses are clear. IMPRESSION: 1. No acute posttraumatic osseous abnormality. 2. Moderate multilevel discogenic and spondylitic degenerative changes of the cervical spine. 3. Nonspecific 17 mm left thyroid hypodensity with small punctate calcification. This is stable since 10/02/2021. Correlate clinically.
--- NOTE | 2022-03-29 18:31 | HMH.EDFALL ---
ED Disposition Clinical Impression: Fall from chair, initial encounter Disposition: Home, Self-Care Condition on Discharge: Good Referrals: Provider,Referral, [Primary Care Provider] - - Critical Care Critical Care Time: No Attestation: On 03/29/22, the high probability of a clinically significant, sudden or life threatening deterioration of the following system(s) required my full and direct attention, intervention and personal management. The time I documented below is in addition to time spent performing reported procedures but includes the following listed in this critical care notation. Medical Decision Making - Nico Inquiry Pt receiving controlled substance: No Nico was queried for this patient: No Vital Signs: 03/29/22 17:40 Temperature 98.6 F Temperature Source Oral Pulse Rate [Radial] 63 Respiratory Rate 16 Blood Pressure [Right Radial Artery] 146/81 H Blood Pressure Mean [Right Radial Artery] 102 Blood Pressure Position [Right Radial Artery] Sitting 02 Sat by Pulse Oximetry 98 Oxygen Delivery Method Room Air - Lab Data Lab Results 03/29/22 18:48: Urine Color Yellow, Urine Appearance Sl cloudy, Urine pH >= 9.0 H, Ur Specific [place] 1.010, Urine Protein 1+, Urine Glucose (UA) Negative, Urine Ketones Negative, Urine Blood 2+, Urine Nitrate Negative, Urine Bilirubin Negative, Urine Urobilinogen 0.2, Ur Leukocyte Esterase 2+ A, Urine RBC 10-20, Urine WBC 5-10, Amorphous Sediment 2+, Urine Bacteria 2+ Orders (Tests/Meds): ED MEDICATIONS Discontinued Medications Generic Name Dose Route Start Last Admin Trade Name Freq PRN Reason Stop Dose Admin Ceftriaxone Sodium 1 gm 03/29/22 19:39 Ceftriaxone 1gm Vial IM 03/29/22 19:40 ONCE ONE ORDERS Category Date Time Status Urine Culture Stat Micro 03/29/22 18:48 Received Medical Decision Narrative: In review this is a 76-year-old female who presents with concern for fall. Hemodynamically stable and nontoxic-appearing. Physical exam shows the patient to continue to be at her reported baseline per her chart review. She does complain of some suprapubic tenderness but says that she does need to urinate. No definitive focal findings but with her history we will get a CT scan of the head and neck to evaluate for any injuries. These were negative for any acute findings. Urinalysis did show bacteria and leuk esterases but no nitrites. Due to this we will give her a dose of Rocephin here and have her PCP follow-up on her culture to see if she needs any additional treatment. At this point she is at her baseline and stable to be discharged back to her nursing facility. Return precautions given. Fall HPI - General Chief Complaint: Fall Stated Complaint: Fall Time Seen by Provider: 03/29/22 18:00 Mode of Arrival: EMS Limitations: No Limitations Description of Symptoms (Recalled from ER Triage Doc. by RN): to ed per squad pt resident [facility] sent for eval reports fell out of wheelchair. pt seen yesterday for same. pt with multiple c/o - History of Present Illness HPI Narrative: Patient is a 76-year-old female with a past medical history of dementia who presents [facility] She was just seen last night for evaluation after a fall as well. She was in her wheelchair when she fell out of bed earlier today. She cannot tell me why she fell out of it. She says that she is having pain all over . She also says that she is having some suprapubic pain but says that this is because she needs to urinate. She denies any fever or chills. Denies any chest pain. Denies any shortness of breath. Denies any headache. Denies any neck pain or numbness or tingling into her extremities. - Related Data Home Medications Medication Instructions Recorded Confirmed Multivitamin [Multi-Vitamin Plain] 1 each PO DAILY 01/04/19 03/29/22 Bethanechol Chloride [Urecholine 10 mg PO TID 01/27/19 03/29/22 1
--- NOTE | 2022-03-29 18:49 | PC.NURSE ---
PT TO CT AT THIS TIME
[2022-03-29 18:54] LABS: Microscopic, Urine URINE MICROSCOPIC (MICROSCOPIC)
--- NOTE | 2022-03-29 19:08 | PC.NURSE ---
PT back from CT
[2022-03-29 19:11] LABS: Appearance,Urine SL CLOUDY (Clear); Bilirubin,Urine Negative (Negative); Blood, Urine 2+ (Negative); Color,Urine YELLOW (Yellow); Glucose,Urine (UA) Negative (Negative); Ketones,Urine Negative (Negative); Leukocyte Esterase,Urine 2+ (Negative); Nitrate,Urine Negative (Negative); Protein,Urine 1+ (Negative); Urobilinogen,Urine 0.2 EU/dl (0.2)
[2022-03-29 19:16] LABS: PH,Urine >= 9.0 (5.0-8.5)
[2022-03-29 19:18] LABS: Amorphous Sediment,Urine 2+ /lpf; Bacteria,Urine 2+ /lpf
[2022-03-29 20:04] VITALS: BP 153/92; PULSE 83; RESP 16; TEMP 36.7; O2SAT 95
--- NOTE | 2022-03-29 20:11 | PC.NURSE ---
LARGE BOWEL MOVEMENT CLEANED. PT DENIES PAIN. NO ACUTE DISTRESS NOTED. PT AWARE OF PLAN TO RETURN TO ASSISTED.
== END 2022-03-29 21:46 | disposition home or self-care (01) ==
PROVIDERS: Emergency Provider Student in an Organized Health Care Education/Training Program
DX: N39.0 Urinary tract infection, site not specified (principal); B96.5 Pseudomonas (aeruginosa) (mallei) (pseudomallei) as the cause of diseases classified elsewhere; Z16.39 Resistance to other specified antimicrobial drug; R52 Pain, unspecified; W05.0XXA Fall from non-moving wheelchair, initial encounter; Y92.129 Unspecified place in nursing home as the place of occurrence of the external cause; Z79.82 Long term (current) use of aspirin; Z79.899 Other long term (current) drug therapy; Z88.0 Allergy status to penicillin; Z88.2 Allergy status to sulfonamides; D64.9 Anemia, unspecified; J44.9 Chronic obstructive pulmonary disease, unspecified; Z88.5 Allergy status to narcotic agent; Z88.7 Allergy status to serum and vaccine; F03.90 Unspecified dementia, unspecified severity, without behavioral disturbance, psychotic disturbance, mood disturbance, and anxiety; I10 Essential (primary) hypertension; E78.5 Hyperlipidemia, unspecified
CPT/HCPCS: 70450; 71045; 72125; 72128; 72131; 73502; 80053; 81001; 85025; 85610; 85730; 87086; 87186; 93005; 96372; 99284; J0696

== ENCOUNTER 2022-07-14 03:34 | Emergency (ER) | payer MEDICARE, MEDICAID, SELFPAY ==
[2022-07-14] VITALS (8 sets, daily range): BP systolic 99–121; BP diastolic 53–70; PULSE 51–70; RESP 14–20; TEMP 36.6–36.9; O2SAT 94–98; BMI 29.7; BMI 27.4
--- NOTE | 2022-07-14 03:38 | PC.NURSE ---
Dr. Pineda at
--- NOTE | 2022-07-14 03:52 | XR_ITS ---
PROCEDURE INFORMATION: Exam: XR Chest Exam date and time: 07/14/2022 4:10 AM Age: 76 years old Clinical indication: Injury or trauma; Other: Unwitnessed fall TECHNIQUE: Imaging protocol: Radiologic exam of the chest. Views: Single-view COMPARISON: CR XR CHEST PORTABLE 03/29/2022 1:12 AM FINDINGS: Lungs: Nonspecific bibasilar opacities, favoring atelectasis or pneumonia. Pleural spaces: No pleural effusion. No pneumothorax. Heart/Mediastinum: Unremarkable cardiomediastinal silhouette. Bones/joints: No acute osseous findings. IMPRESSION: Nonspecific bibasilar opacities, favoring atelectasis or pneumonia. Recommend imaging follow-up until complete resolution.
--- NOTE | 2022-07-14 03:52 | CT_ITS ---
PROCEDURE INFORMATION: Exam: CT Head Without Contrast Exam date and time: 07/14/2022 5:03 AM Age: 76 years old Clinical indication: Injury or trauma; Other: Unwitnessed fall TECHNIQUE: Imaging protocol: Computed tomography of the head without contrast. Radiation optimization: All CT scans at this facility use at least one of these dose optimization techniques: automated exposure control; mA and/or kV adjustment per patient size (includes targeted exams where dose is matched to clinical indication); or iterative reconstruction. COMPARISON: CT HEAD/BRAIN WO CON 03/29/2022 6:54 PM FINDINGS: Brain: There is diffuse cortical volume loss and hypoattenuation of the deep white matter. No evidence of acute intracranial hemorrhage. No acute cerebral edema, mass effect or shift. Cerebral ventricles: No ventriculomegaly. Paranasal sinuses: Visualized sinuses are unremarkable. No fluid levels. Mastoid air cells: Visualized mastoid air cells are well aerated. Bones/joints: Unremarkable. No acute fracture. Soft tissues: Unremarkable. IMPRESSION: No acute intracranial process. Diffuse cortical atrophy and chronic deep white matter small vessel disease.
--- NOTE | 2022-07-14 03:52 | CT_ITS ---
PROCEDURE INFORMATION: Exam: CT Cervical Spine Without Contrast Exam date and time: 07/14/2022 5:05 AM Age: 76 years old Clinical indication: Injury or trauma; Other: Unwitnessed fall TECHNIQUE: Imaging protocol: Computed tomography of the cervical spine without contrast. Radiation optimization: All CT scans at this facility use at least one of these dose optimization techniques: automated exposure control; mA and/or kV adjustment per patient size (includes targeted exams where dose is matched to clinical indication); or iterative reconstruction. COMPARISON: CT CERVICAL SPINE WO CON 03/29/2022 6:56 PM FINDINGS: Bones/joints: There is spondyloarthropathy. There is no acute fracture or dislocation. There are degenerative disc changes. Lungs: The lung apices demonstrate no acute process. Soft tissues: Unremarkable. IMPRESSION: No acute process or fracture. There is spondyloarthropathy and degenerative disc disease.
--- NOTE | 2022-07-14 03:52 | XR_ITS ---
PROCEDURE INFORMATION: Exam: XR Left Hip Exam date and time: 07/14/2022 4:12 AM Age: 76 years old Clinical indication: Injury or trauma; Other: Unwitnessed fall; Prior surgery; Surgery date: 6+ months; Surgery type: Total hip; Additional info: Fall, hip pain TECHNIQUE: Imaging protocol: Radiologic exam of the Left hip. Views: 2 or 3 views hip with pelvis when performed. COMPARISON: CR XR HIP LT 2-3V W/PELVIS 03/29/2022 1:14 AM FINDINGS: Bones/joints: Bilateral hip arthroplasty. No evidence of acute fracture. Soft tissues: Unremarkable. IMPRESSION: No evidence of acute fracture. If symptoms persist, correlate with CT
--- NOTE | 2022-07-14 04:03 | PC.NURSE ---
Pt gone to RAD for CT and Xray
[2022-07-14 04:46] LABS: Basophils # 0.1 K/mm3 (0-0.2); Basophils % 0.7 % (0.1-2.0); Eosinophils # 0.2 K/mm3 (0.0-0.4); Hematocrit 44.2 % (37.0-47.0); Lymphocytes # 1.6 K/mm3 (0.7-4.5); Lymphocytes % 13.2 % (10-50); Mean Corpuscular HGB Conc 31.7 g/dL (31.8-35.4); Mean Corpuscular Volume 97.9 fl (81-99); Mean Platelet Volume 9.3 fl (7.4-10.4); Monocytes # 0.6 K/mm3 (0.1-1.0); Monocytes % 4.9 % (1.7-9.3); Neutrophils # 9.6 K/mm3 (1.8-7.8); Neutrophils % 79.1 % (37.0-80.0); Platelet Count 176 K/mm3 (142-424); Red Blood Count 4.51 M/mm3 (4.20-5.40); Red Cell Distribution Width 13.4 % (11.5-17.5); White Blood Count 12.2 K/mm3 (4.8-10.8)
[2022-07-14 04:56] LABS: Chloride 109 mmol/L (98-107); Potassium 4.1 mmoL/L (3.5-5.1); Sodium 145 mmol/L (136-145)
[2022-07-14 04:58] LABS: Alanine Aminotransferase 17 U/L (12-78); Aspartate Amino Transferase 29 U/L (14-36); Blood Urea Nitrogen 25 mg/dl (7-17); Creatinine Clearance Estimated 46 mL/min (50-200); Estimated Glomerular Filt Rate 44 ml/min (>60); GFR (African American) 53 ML/MIN (>60)
[2022-07-14 04:59] LABS: Albumin/Globulin Ratio 1.5 (1.1-1.8); Alkaline Phosphatase 164 U/L (38-126); Anion Gap 12.1 mEq/L (5-15); Bilirubin,Total 0.3 mg/dl (0.2-1.3); Calcium 9.8 mg/dl (8.4-10.2); Carbon Dioxide 28 mmol/L (22.0-30.0); Globulin 2.7 g/dL (1.3-3.2); Glucose 102 mg/dl (74-100); Total Protein,Serum 6.7 g/dl (6.3-8.2)
[2022-07-14 05:03] LABS: Microscopic, Urine URINE MICROSCOPIC (MICROSCOPIC)
[2022-07-14 05:05] LABS: Appearance,Urine SL CLOUDY (Clear); Bilirubin,Urine Negative (Negative); Blood, Urine 3+ (Negative); Color,Urine YELLOW (Yellow); Glucose,Urine (UA) Negative (Negative); Ketones,Urine Negative (Negative); Leukocyte Esterase,Urine 1+ (Negative); Nitrate,Urine Negative (Negative); PH,Urine 5.5 (5.0-8.5); Protein,Urine 1+ (Negative); Specific Gravity, Urine >= 1.030 (1.005-1.030); Urobilinogen,Urine 0.2 EU/dl (0.2)
[2022-07-14 05:09] LABS: WBC,Urine 50-100 #/hpf (0-3)
--- NOTE | 2022-07-14 07:03 | HMH.EDFALL ---
Discharge Plan Disposition Patient Disposition: Xfer SNF Prescriptions Prescriptions: No Action donepezil 10 mg tablet 10 mg PO DAILY memantine 10 mg tablet 10 mg PO BID loperamide 2 mg capsule 2 mg PO Q4H PRN (Reason: LOOSE STOOLS) Rx Instructions: administer after each loose stool until symptoms controlled; do not exceed 8 mg per 24 hrs albuterol sulfate [Ventolin HFA] 90 mcg/actuation HFA aerosol inhaler 2 puff IH Q4-6H PRN (Reason: SHORTNESS OF AIR) metoprolol succinate 25 mg tablet extended release 24 hr 12.5 mg PO DAILY Qty: 30 5RF lorazepam 0.5 mg tablet 0.5 mg PO .COMPLEX Qty: 120 5RF Rx Instructions: 1 tablet QAM, 2 tablets @ noon & 1 tablet QHS gabapentin 400 mg capsule 400 mg PO TID Qty: 90 5RF multivitamin 1 EACH tablet 1 each PO DAILY atorvastatin 40 MG tablet 40 mg PO DAILY aspirin 81 MG tablet,chewable 81 mg PO DAILY citalopram 10 mg tablet 20 mg PO DAILY nitrofurantoin monohyd/m-cryst 100 MG capsule 100 mg PO BID bethanechol chloride 10 MG tablet 10 mg PO TID docusate sodium 250 mg capsule 100 mg PO DAILY Referrals Follow up/Referrals: Dom Pineda MD [Primary Care Provider] - See instructions Clinical Impressions Clinical Impression: Fall, Contusion of hip, right, Acute UTI (urinary tract infection) Instructions Patient Instructions: DI for Urinary Tract Infection (UTI) Discharge ED Provider: Dom Pineda Fall HPI General Chief Complaint: Fall Stated Complaint: Fall Time Seen by Provider: 07/14/22 05:05 Mode of Arrival: EMS Source of Information: EMS and Medical Record Limitations: Physical Limitations Description of Symptoms (Recalled from ER Triage Doc. by RN): pt was drowsy upon arrival pt report recieved per EMS pt found in bathroom floor after apparent fall. the longterm reported that she was found c/o right hip pain. EMS [facility] had no complaints of pain at the time of arrival. pt hard to rouse and pupils were pinpoint and nonreactive. pt oriented to self/birthdate and place History of Present Illness HPI Narrative: found on floor at [facility] - pt with no specific hx but has reported rt hip pain complaint: fall Onset (ago): hour(s) Fall from: standing Fall witnessed: no Place fall occurred: longterm/SNF Loss of consciousness: none Prolonged down time: no Context: history of frequent falls Location of injury - extremities: Right: thigh Severity: moderate Related Data Home Medications Medication Instructions Recorded Confirmed multivitamin 1 each PO DAILY Supplement 01/04/19 03/29/22 bethanechol chloride 10 mg tablet 10 mg PO TID URINARY RETENTION 01/27/19 03/29/22 donepezil 10 mg tablet 10 mg PO DAILY MEMORY 01/02/20 03/29/22 memantine 10 mg tablet 10 mg PO BID MEMORY 01/18/20 03/29/22 atorvastatin 40 mg tablet 40 mg PO DAILY Cholesterol 01/24/20 03/29/22 aspirin 81 mg chewable tablet 81 mg PO DAILY HEART HEALTH 04/07/20 03/29/22 citalopram 10 mg tablet 20 mg PO DAILY Depression 06/27/20 03/29/22 nitrofurantoin 100 mg PO BID . 12/10/21 03/29/22 monohydrate/macrocrystals 100 mg capsule albuterol sulfate 90 mcg/actuation 2 puff inhalation Q4-6H PRN 01/29/22 03/29/22 aerosol inhaler (Ventolin HFA) SHORTNESS OF AIR docusate sodium 250 mg capsule 100 mg PO DAILY STOOL SOFTNER 01/29/22 03/29/22 loperamide 2 mg capsule 2 mg PO Q4H PRN LOOSE STOOLS 01/29/22 03/29/22 Previous Rx's Medication Instructions Recorded lorazepam 0.5 mg tablet 0.5 mg PO .COMPLEX Anxiety #120 01/03/22 tabs metoprolol succinate 25 mg 12.5 mg PO DAILY High blood 01/29/22 tablet,extended release 24 hr pressure #30 tabs gabapentin 400 mg capsule 400 mg PO TID Pain #90 caps 03/18/22 Allergies Allergy/AdvReac Type Severity Reaction Status Date / Time diphtheria toxoid,fluid Allergy Unknown Unknown Verified 02/28/22 10:48 [DIPHTHERIA TO
--- NOTE | 2022-07-14 07:43 | PC.NURSE ---
called [facility] for transport
--- NOTE | 2022-07-14 07:47 | PC.NURSE ---
called report to barney at [facility]
== END 2022-07-14 08:51 ==
PROVIDERS: Emergency Provider Emergency Medicine; PCP Emergency Medicine
DX: N39.0 Urinary tract infection, site not specified (principal); M54.16 Radiculopathy, lumbar region; S70.01XA Contusion of right hip, initial encounter; R19.7 Diarrhea, unspecified; I71.40 Abdominal aortic aneurysm, without rupture, unspecified; E27.9 Disorder of adrenal gland, unspecified; K57.90 Diverticulosis of intestine, part unspecified, without perforation or abscess without bleeding; E66.9 Obesity, unspecified; F17.200 Nicotine dependence, unspecified, uncomplicated; Z79.51 Long term (current) use of inhaled steroids; Z79.82 Long term (current) use of aspirin; Z79.899 Other long term (current) drug therapy; Z88.0 Allergy status to penicillin; Z88.2 Allergy status to sulfonamides; Z88.5 Allergy status to narcotic agent; Z88.7 Allergy status to serum and vaccine; Z68.30 Body mass index [BMI] 30.0-30.9, adult; W19.XXXA Unspecified fall, initial encounter
CPT/HCPCS: 70450; 71045; 72125; 73502; 80053; 81001; 85025; 87086; 99285; J0696

== ENCOUNTER → 2022-07-25 10:26 | Outpatient (CLI) | payer MEDICARE, MEDICAID, SELFPAY ==
--- NOTE | 2022-07-25 10:33 | MM_ITS ---
PROCEDURE INFORMATION: Exam: MG Bilateral Screening 3D Mammography Exam date and time: 07/25/2022 10:34 AM Age: 77 years old Clinical indication: Screening examination TECHNIQUE: Imaging protocol: Bilateral Screening tomosynthesis and 2D mammography including computer-aided detection (CAD) when performed. COMPARISON: 1. MG REPEAT VIEW MM 07/09/2021 1:37 PM 2. MG MM DIG SCREENING MAMM BI W/CAD 05/27/2021 9:46 AM 3. MG MM DIG SCREENING MAMM BI W/CAD 05/24/2020 1:22 PM FINDINGS: MAMMOGRAPHY: Breast composition: There are scattered areas of fibroglandular density. Mass: No suspicious masses. Architectural distortion: No suspicious distortion. Calcifications: No suspicious calcifications. Asymmetric density: None. Skin thickening: None. Axillary adenopathy: None. IMPRESSION: No mammographic evidence of malignancy. Annual screening is recommended unless otherwise clinically indicated. ASSESSMENT: BI-RADS Category 1: Negative
== END ==
PROVIDERS: PCP Emergency Medicine; Visit Provider Emergency Medicine
DX: Z12.31 Encounter for screening mammogram for malignant neoplasm of breast (principal)
CPT/HCPCS: 77063; 77067

== ENCOUNTER 2022-10-06 05:41 | Emergency (ER) | payer MEDICARE, MEDICAID, SELFPAY ==
[2022-10-06 05:41] VITALS: BP 155/86; PULSE 50; RESP 14; TEMP 36.6; O2SAT 95; BMI 25.8
[2022-10-06 05:42] VITALS: BMI 25.8
--- NOTE | 2022-10-06 05:43 | XR_ITS ---
PROCEDURE INFORMATION: Exam: XR Right Hip Exam date and time: 10/06/2022 6:07 AM Age: 77 years old Clinical indication: Injury or trauma; Fall TECHNIQUE: Imaging protocol: Radiologic exam of the Right hip. Views: 2 or 3 views hip with pelvis when performed. COMPARISON: CR XR HIP RT 2-3V W/PELVIS 03/29/2022 1:15 AM FINDINGS: Bones/joints: Bilateral hip prostheses. No acute fracture, dislocation or osseous destructive process. Advanced degenerative changes in the lumbar spine. Soft tissues: No acute findings or radiopaque foreign body. IMPRESSION: 1. No acute findings. 2. Bilateral hip prostheses.
--- NOTE | 2022-10-06 05:43 | CT_ITS ---
PROCEDURE INFORMATION: Exam: CT Cervical Spine Without Contrast Exam date and time: 10/06/2022 6:06 AM Age: 77 years old Clinical indication: Injury or trauma; Fall TECHNIQUE: Imaging protocol: Computed tomography of the cervical spine without contrast. Radiation optimization: All CT scans at this facility use at least one of these dose optimization techniques: automated exposure control; mA and/or kV adjustment per patient size (includes targeted exams where dose is matched to clinical indication); or iterative reconstruction. Other protocol: This patient has received 9 known CTs and 0 known cardiac nuclear medicine studies in the 12 months prior to the current study. COMPARISON: CT CERVICAL SPINE WO CON 07/14/2022 5:05 AM FINDINGS: Bones/joints: No acute fracture. Facets are normally aligned. Multilevel advanced degenerative disc disease. No significant central canal stenosis. Degenerative neural foraminal narrowing bilaterally at C4-C5 and C5-C6 . Multilevel degenerative facet arthropathy. Lungs: No acute findings in the visualized lung apices. Soft tissues: No acute findings. IMPRESSION: 1. No acute findings in the cervical spine. 2. Multilevel advanced degenerative changes with associated neural foraminal narrowing at C4-C5 and C5-C6.
--- NOTE | 2022-10-06 05:43 | CT_ITS ---
PROCEDURE INFORMATION: Exam: CT Head Without Contrast Exam date and time: 10/06/2022 6:04 AM Age: 77 years old Clinical indication: Injury or trauma; Fall TECHNIQUE: Imaging protocol: Computed tomography of the head without contrast. Radiation optimization: All CT scans at this facility use at least one of these dose optimization techniques: automated exposure control; mA and/or kV adjustment per patient size (includes targeted exams where dose is matched to clinical indication); or iterative reconstruction. Other protocol: This patient has received 9 known CTs and 0 known cardiac nuclear medicine studies in the 12 months prior to the current study. COMPARISON: CT HEAD/BRAIN WO CON 07/14/2022 5:03 AM FINDINGS: Brain: No mass effect or midline shift. No intracranial hemorrhage. No evidence of acute territorial ischemia. Age related atrophic changes in the brain. There is moderate diffuse heterogeneity of the white matter attenuation, consistent with chronic white matter microvascular ischemic changes. Cerebral ventricles: No ventriculomegaly. Paranasal sinuses: No acute findings. No fluid levels. Mastoid air cells: No significant mastoid effusion. Bones/joints: No acute fracture. Soft tissues: No acute findings. Vasculature: Right MCA stent. IMPRESSION: No acute intracranial findings.
--- NOTE | 2022-10-06 05:43 | XR_ITS ---
PROCEDURE INFORMATION: Exam: XR Chest Exam date and time: 10/06/2022 6:07 AM Age: 77 years old Clinical indication: Injury or trauma; Fall TECHNIQUE: Imaging protocol: Radiologic exam of the chest. Views: 1 view. COMPARISON: CR XR CHEST AP 07/14/2022 4:10 AM FINDINGS: Lungs: No acute findings or consolidation. Pleural spaces: No pleural effusion. No pneumothorax. Heart/Mediastinum: No acute findings or cardiomegaly. Bones/joints: Advanced degenerative changes in the glenohumeral joints bilaterally. IMPRESSION: No acute cardiopulmonary findings.
[2022-10-06 06:10] VITALS: BP 170/74; PULSE 54; O2SAT 93
--- NOTE | 2022-10-06 06:22 | PC.NURSE ---
Pt resting in bed with eyes closed. Call light within reach.
[2022-10-06 06:31] VITALS: BP 143/90; PULSE 53; O2SAT 93
--- NOTE | 2022-10-06 06:32 | HMH.EDFALL ---
Discharge Plan Disposition Patient Disposition: Xfer SNF Chief Complaint: Fall Prescriptions Prescriptions: No Action donepezil 10 mg tablet 10 mg PO DAILY memantine 10 mg tablet 10 mg PO BID loperamide 2 mg capsule 2 mg PO Q4H PRN (Reason: LOOSE STOOLS) Rx Instructions: administer after each loose stool until symptoms controlled; do not exceed 8 mg per 24 hrs albuterol sulfate [Ventolin HFA] 90 mcg/actuation HFA aerosol inhaler 2 puff IH Q4-6H PRN (Reason: SHORTNESS OF AIR) metoprolol succinate 25 mg tablet extended release 24 hr 12.5 mg PO DAILY Qty: 30 5RF fluoxetine 40 mg capsule 40 mg PO DAILY acetaminophen 500 mg TABLET 500 mg PO PRN risperidone 0.5 mg tablet 0.5 mg PO HS lorazepam 0.5 mg tablet 0.5 mg PO .COMPLEX Qty: 120 5RF Rx Instructions: 1 tablet QAM, 2 tablets @ noon & 1 tablet QHS gabapentin 400 mg capsule 400 mg PO TID Qty: 90 5RF multivitamin 1 EACH tablet 1 each PO DAILY atorvastatin 40 MG tablet 40 mg PO DAILY aspirin 81 MG tablet,chewable 81 mg PO DAILY citalopram 10 mg tablet 20 mg PO DAILY nitrofurantoin monohyd/m-cryst 100 MG capsule 100 mg PO BID bethanechol chloride 10 MG tablet 10 mg PO TID docusate sodium 250 mg capsule 100 mg PO DAILY Referrals Follow up/Referrals: Dom Pineda MD [Primary Care Provider] - See instructions Clinical Impressions Clinical Impression: Fall, Head contusion, Contusion of hip, right Instructions Patient Instructions: How to Prevent Falls Discharge ED Provider: Edwin (ED)Dom Fall HPI General Chief Complaint: Fall Stated Complaint: fall Time Seen by Provider: 10/06/22 06:10 Mode of Arrival: EMS Source of Information: EMS and Medical Record Limitations: Altered Mental Status Description of Symptoms (Recalled from ER Triage Doc. by RN): per halfway pt fell and was found laying in the floor. pt c/o rt hip pain History of Present Illness HPI Narrative: [facility] reports fall and concerned about hip injury and head injury complaint: fall Onset (ago): hour(s) Fall from: standing Fall witnessed: no Place fall occurred: halfway/SNF Loss of consciousness: none Prolonged down time: no Context: tripped/slipped Location of injury - extremities: Right: thigh Severity: moderate Related Data Home Medications Medication Instructions Recorded Confirmed multivitamin 1 each PO DAILY Supplement 01/04/19 09/24/22 bethanechol chloride 10 mg tablet 10 mg PO TID URINARY RETENTION 01/27/19 09/24/22 donepezil 10 mg tablet 10 mg PO DAILY MEMORY 01/02/20 09/24/22 memantine 10 mg tablet 10 mg PO BID MEMORY 01/18/20 09/24/22 atorvastatin 40 mg tablet 40 mg PO DAILY Cholesterol 01/24/20 09/24/22 aspirin 81 mg chewable tablet 81 mg PO DAILY HEART HEALTH 04/07/20 09/24/22 citalopram 10 mg tablet 20 mg PO DAILY Depression 06/27/20 09/24/22 nitrofurantoin 100 mg PO BID . 12/10/21 09/24/22 monohydrate/macrocrystals 100 mg capsule albuterol sulfate 90 mcg/actuation 2 puff inhalation Q4-6H PRN 01/29/22 09/24/22 aerosol inhaler (Ventolin HFA) SHORTNESS OF AIR docusate sodium 250 mg capsule 100 mg PO DAILY STOOL SOFTNER 01/29/22 09/24/22 loperamide 2 mg capsule 2 mg PO Q4H PRN LOOSE STOOLS 01/29/22 09/24/22 acetaminophen 500 mg tablet 500 mg PO PRN 09/19/22 09/24/22 fluoxetine 40 mg capsule 40 mg PO DAILY 09/19/22 09/24/22 risperidone 0.5 mg tablet 0.5 mg PO HS 09/19/22 09/24/22 Previous Rx's Medication Instructions Recorded lorazepam 0.5 mg tablet 0.5 mg PO .COMPLEX Anxiety #120 01/03/22 tabs metoprolol succinate 25 mg 12.5 mg PO DAILY High blood 01/29/22 tablet,extended release 24 hr pressure #30 tabs gabapentin 400 mg capsule 400 mg PO TID Pain #90 caps 09/16/22 Allergies Allergy/AdvReac Type Severity Reaction Status Date / Time diphtheria toxoid,fluid Allergy Unknown Unknown Verified 09/24/22 05:42 [DIPHTHERIA
--- NOTE | 2022-10-06 08:07 | PC.NURSE ---
notified em[facility] of need of transport back to [facility]
--- NOTE | 2022-10-06 08:14 | PC.NURSE ---
report called to simi [facility] [place]
--- NOTE | 2022-10-06 08:48 | PC.NURSE ---
pt transferred to EMS stretcher from ED stretcher without complications
[2022-10-06 08:50] VITALS: BP 140/89; PULSE 55; RESP 18; TEMP 36.7; O2SAT 98
== END 2022-10-06 08:50 ==
PROVIDERS: Emergency Provider Emergency Medicine; PCP Emergency Medicine
DX: S00.83XA Contusion of other part of head, initial encounter (principal); S70.01XA Contusion of right hip, initial encounter; W19.XXXA Unspecified fall, initial encounter; I71.40 Abdominal aortic aneurysm, without rupture, unspecified; M54.50 Low back pain, unspecified; K57.90 Diverticulosis of intestine, part unspecified, without perforation or abscess without bleeding; F17.210 Nicotine dependence, cigarettes, uncomplicated; Z87.19 Personal history of other diseases of the digestive system
CPT/HCPCS: 70450; 71045; 72125; 73502; 99285

== ENCOUNTER 2022-10-31 13:49 | Emergency (ER) | payer MEDICARE, MEDICAID, SELFPAY ==
[2022-10-31 13:49] VITALS: BP 138/79; PULSE 57; RESP 16; TEMP 36.8; O2SAT 93; BMI 26.6
--- NOTE | 2022-10-31 13:58 | HMH.EDGENADL ---
Discharge Plan Disposition Patient Disposition: Home, Self-Care Condition: Good Prescriptions Prescriptions: No Action donepezil 10 mg tablet 10 mg PO DAILY memantine 10 mg tablet 10 mg PO BID loperamide 2 mg capsule 2 mg PO Q4H PRN (Reason: LOOSE STOOLS) Rx Instructions: administer after each loose stool until symptoms controlled; do not exceed 8 mg per 24 hrs albuterol sulfate [Ventolin HFA] 90 mcg/actuation HFA aerosol inhaler 2 puff IH Q4-6H PRN (Reason: SHORTNESS OF AIR) metoprolol succinate 25 mg tablet extended release 24 hr 12.5 mg PO DAILY Qty: 30 5RF fluoxetine 40 mg capsule 40 mg PO DAILY acetaminophen 500 mg TABLET 500 mg PO PRN risperidone 0.5 mg tablet 0.5 mg PO HS lorazepam 0.5 mg tablet 0.5 mg PO .COMPLEX Qty: 120 5RF Rx Instructions: 1 tablet QAM, 2 tablets @ noon & 1 tablet QHS gabapentin 400 mg capsule 400 mg PO TID Qty: 90 5RF multivitamin 1 EACH tablet 1 each PO DAILY atorvastatin 40 MG tablet 40 mg PO DAILY aspirin 81 MG tablet,chewable 81 mg PO DAILY citalopram 10 mg tablet 20 mg PO DAILY nitrofurantoin monohyd/m-cryst 100 MG capsule 100 mg PO BID bethanechol chloride 10 MG tablet 10 mg PO TID docusate sodium 250 mg capsule 100 mg PO DAILY Activity Restrictions/Add. Instructions Additional Instructions/Restrictions: Tylenol as needed for pain. Ice 20 minutes 4 times a day as needed for swelling. Additional instructions for HEAD INJURY: Return immediately if severe headache, vomiting, problems with vision or speech, numbness or weakness of the extremities, or severe neck pain. Clinical Impressions Clinical Impression: Closed fracture nasal bone, Laceration of nose, Fall Instructions Patient Instructions: DI for Nose Fracture, DI for Laceration Repair-Skin Glue, How to Prevent Falls, DI for Closed Head Injury Discharge ED Provider: Logan Priest General Adult HPI General Chief complaint: Fall Stated complaint: FALL Time Seen by Provider: 10/31/22 13:58 History of Present Illness HPI narrative: The patient is brought in by ambulance from a residential. She reportedly fell. Staff reported to our nurses that the patient has dementia and is normally wheelchair-bound. She tried to get up out of her wheelchair and fell face first. The patient states she does not remember the fall. She denies any pain including head or neck pain, chest, abdominal, back pain, hip pain. Related Data Home Medications Medication Instructions Recorded Confirmed multivitamin 1 each PO DAILY Supplement 01/04/19 09/24/22 bethanechol chloride 10 mg tablet 10 mg PO TID URINARY RETENTION 01/27/19 09/24/22 donepezil 10 mg tablet 10 mg PO DAILY MEMORY 01/02/20 09/24/22 memantine 10 mg tablet 10 mg PO BID MEMORY 01/18/20 09/24/22 atorvastatin 40 mg tablet 40 mg PO DAILY Cholesterol 01/24/20 09/24/22 aspirin 81 mg chewable tablet 81 mg PO DAILY HEART HEALTH 04/07/20 09/24/22 citalopram 10 mg tablet 20 mg PO DAILY Depression 06/27/20 09/24/22 nitrofurantoin 100 mg PO BID . 12/10/21 09/24/22 monohydrate/macrocrystals 100 mg capsule albuterol sulfate 90 mcg/actuation 2 puff inhalation Q4-6H PRN 01/29/22 09/24/22 aerosol inhaler (Ventolin HFA) SHORTNESS OF AIR docusate sodium 250 mg capsule 100 mg PO DAILY STOOL SOFTNER 01/29/22 09/24/22 loperamide 2 mg capsule 2 mg PO Q4H PRN LOOSE STOOLS 01/29/22 09/24/22 acetaminophen 500 mg tablet 500 mg PO PRN 09/19/22 09/24/22 fluoxetine 40 mg capsule 40 mg PO DAILY 09/19/22 09/24/22 risperidone 0.5 mg tablet 0.5 mg PO HS 09/19/22 09/24/22 Previous Rx's Medication Instructions Recorded lorazepam 0.5 mg tablet 0.5 mg PO .COMPLEX Anxiety #120 01/03/22 tabs metoprolol succinate 25 mg 12.5 mg PO DAILY High blood 01/29/22 tablet,extended release 24 hr pressure #30 tabs gabapentin 400 mg capsule 400 mg PO TID Pain #90 caps 09/16/22 Al
[2022-10-31 14:00] VITALS: BP 133/86; PULSE 57; O2SAT 94
--- NOTE | 2022-10-31 14:01 | XR_ITS ---
FINAL REPORT CLINICAL HISTORY: fall COMPARISON: 10/06/2022 FINDINGS: A portable view of the chest was obtained. Comparison is made to a prior exam dated 10/06/2022. The heart size is normal. The mediastinum is prominent but the patient is rotated. Lung volumes are low. Left basilar opacity is favored to be atelectasis. There is no pleural effusion or pneumothorax. IMPRESSION: Prominent mediastinum likely related to patient rotation. Recommend upright PA and lateral when patient able to tolerate. Left basilar opacity likely atelectasis. Reviewed, Interpreted and Dictated by Elda Romero MD Transcribed by Dorothy Asher Authenticated and [facility]
--- NOTE | 2022-10-31 14:01 | XR_ITS ---
FINAL REPORT CLINICAL HISTORY: fall COMPARISON: 10/06/2022 FINDINGS: SINGLE VIEW PELVIS: A single view of the pelvis was obtained. There are postoperative changes from bilateral hip arthroplasty. There is no acute osseous abnormality of the pelvis. The femoral hardware is not entirely included on this exam. Otherwise, the hip arthroplasties appear intact. IMPRESSION: No acute bony abnormality. Reviewed, Interpreted and Dictated by Elda Romero MD Transcribed by Dorothy Asher Authenticated and [facility]
--- NOTE | 2022-10-31 14:01 | CT_ITS ---
FINAL REPORT TECHNIQUE: Thin section axial images were obtained through the cervical spine without contrast. Multiplanar reconstruction images were obtained from the axial data. Exam was performed using dose reduction techniques. CLINICAL HISTORY: fall COMPARISON: 10/06/2022 FINDINGS: There is no acute fracture or acute malalignment of the cervical spine. There is no evidence of unilateral or bilateral facet lock. Vertebral body height is preserved. There is advanced multilevel degenerative disc disease which appears similar to the prior exam. No acute paraspinal abnormality is identified. IMPRESSION: 1. No acute osseous abnormality of the cervical spine. 2. Stable multilevel degenerative disc disease. Reviewed, Interpreted and Dictated by Elda Romero MD Transcribed by Amina Bustillo Authenticated and [facility]
--- NOTE | 2022-10-31 14:01 | CT_ITS ---
FINAL REPORT TECHNIQUE: Thin section axial images were obtained from skull base to vertex without contrast. Coronal reconstruction images were obtained from the axial data. Exam was performed using dose reduction technique. CLINICAL HISTORY: fall COMPARISON: 10/06/2022 FINDINGS: There is age-appropriate atrophy. There is no mass effect or midline shift. There is no intracranial hemorrhage. There is no hydrocephalus. Periventricular low density is likely related to changes of chronic small vessel ischemia. The basilar cisterns are preserved. The posterior fossa is without acute abnormality. There is soft tissue edema of the frontal scalp at the midline. Remain soft tissues are without acute abnormality. No acute osseous abnormality is identified. IMPRESSION: No acute intracranial abnormality. Atrophy and changes suggesting chronic small vessel ischemia. Reviewed, Interpreted and Dictated by Elda Romero MD Transcribed by Amina Bustillo Authenticated and [facility]
--- NOTE | 2022-10-31 14:05 | CT_ITS ---
FINAL REPORT TECHNIQUE: Thin section axial images were obtained through the face without contrast. Coronal reconstruction images are obtained from the axial data. CLINICAL HISTORY: fall FINDINGS: There is a fracture of the tip of the right nasal bone which is nondisplaced. No other fracture is identified. The paranasal sinuses are clear without air-fluid levels. The orbital rims are intact. No significant nasal septal deviation is identified. There is mild soft tissue edema over the bridge of the nose. Remaining soft tissues are within normal limits. IMPRESSION: Nondisplaced fracture of the tip of the right nasal bone. Reviewed, Interpreted and Dictated by Elda Romero MD Transcribed by Amina Bustillo Authenticated and [facility]
[2022-10-31 15:00] VITALS: BP 127/79; PULSE 55; O2SAT 93
[2022-10-31 15:30] VITALS: BP 118/55; PULSE 54; O2SAT 91
--- NOTE | 2022-10-31 15:58 | PC.NURSE ---
notified ems of need of transport back to [facility]
--- NOTE | 2022-10-31 16:00 | PC.NURSE ---
report called to YAMINI Jett at [place]
[2022-10-31 16:02] VITALS: BP 127/61; PULSE 56; RESP 17; TEMP 36.8; O2SAT 93
== END 2022-10-31 16:26 | disposition home or self-care (01) ==
PROVIDERS: Emergency Provider Emergency Medicine
DX: S02.2XXA Fracture of nasal bones, initial encounter for closed fracture (principal); S01.21XA Laceration without foreign body of nose, initial encounter; W19.XXXA Unspecified fall, initial encounter; K57.92 Diverticulitis of intestine, part unspecified, without perforation or abscess without bleeding; M54.50 Low back pain, unspecified; E66.9 Obesity, unspecified; F17.210 Nicotine dependence, cigarettes, uncomplicated; I71.40 Abdominal aortic aneurysm, without rupture, unspecified; D35.00 Benign neoplasm of unspecified adrenal gland
CPT/HCPCS: 12011; 70450; 70486; 71045; 72125; 72170; 99285

== ENCOUNTER → 2022-12-12 10:07 | Outpatient (CLI) | payer MEDICARE, MEDICAID, SELFPAY ==
--- NOTE | 2022-12-12 10:13 | XR_ITS ---
FINAL REPORT CLINICAL HISTORY: Pt fell x 1 wk ago, pain @ elbow w swelling FINDINGS: LEFT HUMERUS 2 views were obtained. There is a comminuted, intercondylar fracture of the distal humerus. There may be a separate fragment off the medial epicondyle. Degenerative changes are seen in the shoulder and elbow. IMPRESSION: Comminuted, intercondylar fracture of the distal humerus. Questionable separate fragment off the medial epicondyle. Reviewed, Interpreted and Dictated by Amrik Moore III, MD Transcribed by Gabi Pappas Authenticated and [facility]
--- NOTE | 2022-12-12 11:32 | CT_ITS ---
FINAL REPORT CLINICAL HISTORY: fracture LT ELBOW FINDINGS: CT LEFT ELBOW WITHOUT CONTRAST TECHNIQUE: Axial, reformatted, and 3D images were obtained of the left elbow. This study was performed with techniques to keep radiation doses as low as reasonably achievable, (ALARA). Individualized dose reduction techniques using automated exposure control or adjustment of mA and/or kV according to the patient's size were employed. FINDINGS: There is a comminuted, intertrochanteric fracture of the distal humerus. There is mild impaction of the fracture fragments. On the plain films, there appears to be a separate fragment of the medial epicondyle which is suboptimally visualized on the CT images. IMPRESSION: Comminuted, impacted, intertrochanteric fracture of the distal humerus with mild impaction of the fracture fragments. Reviewed, Interpreted and Dictated by Amrik Moore III, MD Transcribed by Gabi Pappas Authenticated and [facility]
== END ==
PROVIDERS: PCP Emergency Medicine; Visit Provider Orthopaedic Surgery
DX: M89.8X2 Other specified disorders of bone, upper arm (principal); M25.522 Pain in left elbow; S42.402A Unspecified fracture of lower end of left humerus, initial encounter for closed fracture
CPT/HCPCS: 73060; 73200

== ENCOUNTER 2022-12-16 01:15 | Emergency (ER) | payer MEDICARE, MEDICAID, SELFPAY ==
[2022-12-16] VITALS (7 sets, daily range): BP systolic 118–152; BP diastolic 72–96; PULSE 68–85; RESP 15–16; TEMP 36.7–36.8; O2SAT 92–98; BMI 28.3; BMI 29.2
--- NOTE | 2022-12-16 01:24 | CT_ITS ---
PROCEDURE INFORMATION: Exam: CT Cervical Spine Without Contrast Exam date and time: 12/16/2022 1:51 AM Age: 77 years old Clinical indication: Injury or trauma; Fall TECHNIQUE: Imaging protocol: Computed tomography of the cervical spine without contrast. Radiation optimization: All CT scans at this facility use at least one of these dose optimization techniques: automated exposure control; mA and/or kV adjustment per patient size (includes targeted exams where dose is matched to clinical indication); or iterative reconstruction. REPORTING DATA: Count of CT and Cardiac NM exams in prior 12 months: This patient has received 15 known CTs and 0 known cardiac nuclear medicine studies in the 12 months prior to the current study. COMPARISON: CT CERVICAL SPINE WO CON 10/31/2022 2:36 PM FINDINGS: Bones/joints: There is no evidence of acute cervical spine fracture or malalignment. There is advanced multilevel degenerative disc and facet disease. Mild spinal canal stenosis is noted at C5-C6. Neural foramina appear adequate throughout. Auditory system: Prominent cerumen noted in the external auditory canals bilaterally, right greater than left. Lungs: Clear lung apices. Esophagus: Esophagus is distended with ingested material extending to the C5 level. Thyroid: 1.5 cm left thyroid nodule. Vasculature: A right internal carotid artery stent is partly visualized. Soft tissues: Unremarkable. IMPRESSION: 1. No evidence of acute cervical spine fracture or traumatic malalignment. There is spinal stenosis at C5-C6. 2. Abnormal distension of the esophagus with ingested material. Esophageal stricture is not excluded. 3. 1.5 cm left thyroid nodule could be further evaluated with ultrasound on a nonemergent basis. COMMENTS: Consistent with the [employer]'s Incidental Findings Committee white paper (J Am Stewart Radiol 2015): In patients aged 35 years and older with an incidental thyroid nodule equal to or greater than 1.[address], MRI or extrathyroidal US, further evaluation with dedicated thyroid US is recommended for patients with normal life expectancy and without comorbidities. For smaller nodules without suspicious features, no further evaluation or follow up is recommended.
--- NOTE | 2022-12-16 01:24 | CT_ITS ---
PROCEDURE INFORMATION: Exam: CT Head Without Contrast Exam date and time: 12/16/2022 1:51 AM Age: 77 years old Clinical indication: Injury or trauma; Fall TECHNIQUE: Imaging protocol: Computed tomography of the head without contrast. Radiation optimization: All CT scans at this facility use at least one of these dose optimization techniques: automated exposure control; mA and/or kV adjustment per patient size (includes targeted exams where dose is matched to clinical indication); or iterative reconstruction. REPORTING DATA: Count of CT and Cardiac NM exams in prior 12 months: This patient has received 15 known CTs and 0 known cardiac nuclear medicine studies in the 12 months prior to the current study. COMPARISON: CT HEAD/BRAIN WO CON 10/31/2022 2:32 PM FINDINGS: Brain: Normal. No hemorrhage. Unremarkable white matter. No mass effect. Cerebral ventricles: No ventriculomegaly. Paranasal sinuses: Visualized sinuses are unremarkable. No fluid levels. Mastoid air cells: Visualized mastoid air cells are well aerated. Bones/joints: Unremarkable. No acute fracture. Soft tissues: Left parietal scalp hematoma. Vasculature: Right internal carotid artery stent. Dolichoectasia of the right MCA. IMPRESSION: 1. No evidence of acute intracranial hemorrhage, mass effect, or edema. 2. Left parietal scalp hematoma.
--- NOTE | 2022-12-16 01:25 | XR_ITS ---
PROCEDURE INFORMATION: Exam: XR Chest Exam date and time: 12/16/2022 1:49 AM Age: 77 years old Clinical indication: Injury or trauma; Fall; Blunt trauma (contusions or hematomas) TECHNIQUE: Imaging protocol: Radiologic exam of the chest. Views: 1 view. COMPARISON: CR XR CHEST AP 10/31/2022 2:31 PM FINDINGS: Lungs: Clear, symmetrically inflated lungs. Pleural spaces: No pleural effusion. No pneumothorax. Heart/Mediastinum: Cardiac silhouette is normal in size for technique. Vasculature: Tortuous calcified aorta is unchanged from prior. Bones/joints: Advanced bilateral shoulder arthropathy. No displaced rib fractures are evident. IMPRESSION: 1. No displaced fractures are evident. No pneumothorax. New line tortuous calcified aorta. 2. Advanced shoulder arthropathy.
--- NOTE | 2022-12-16 01:25 | XR_ITS ---
PROCEDURE INFORMATION: Exam: XR Pelvis Exam date and time: 12/16/2022 1:49 AM Age: 77 years old Clinical indication: Injury or trauma; Fall; Blunt trauma (contusions or hematomas); Does not apply; Pelvic region; Prior surgery TECHNIQUE: Imaging protocol: Radiologic exam of the pelvis. Views: 1 or 2 view. COMPARISON: CR XR PELVIS 1-2V 10/31/2022 2:31 PM FINDINGS: Tubes, catheters and devices: Bilateral prosthetic hips are noted. Bones/joints: No displaced fractures are visible. Suboptimal film technique limits sensitivity. Soft tissues: Unremarkable. IMPRESSION: No convincing acute fracture.
--- NOTE | 2022-12-16 01:28 | XR_ITS ---
PROCEDURE INFORMATION: Exam: XR Left Humerus Exam date and time: 12/16/2022 1:49 AM Age: 77 years old Clinical indication: Injury or trauma; Blunt trauma (contusions or hematomas); Arm, upper; Left; Patient HX: HX previous fall with FX, arm in splint. TECHNIQUE: Imaging protocol: Radiologic exam of the left humerus. Views: 2 or more views. COMPARISON: CR XR HUMERUS LT 12/12/2022 10:20 AM FINDINGS: Bones/joints: Transverse supracondylar fracture noted. Soft tissues: Left upper extremity is immobilized in composite splint material, obscuring soft tissue planes. IMPRESSION: Immobilized transverse fracture of the distal humeral metaphysis.
--- NOTE | 2022-12-16 01:28 | XR_ITS ---
PROCEDURE INFORMATION: Exam: XR Left Elbow Exam date and time: 12/16/2022 1:49 AM Age: 77 years old Clinical indication: Injury or trauma; Blunt trauma (contusions or hematomas); Elbow; Left; Patient HX: HX previous fall with FX, arm in splint. TECHNIQUE: Imaging protocol: Radiologic exam of the left elbow. Views: 3 or more views. COMPARISON: CT ELBOW LT WO CON 12/12/2022 11:35 AM FINDINGS: Tubes, catheters and devices: Extremity is immobilized in composite cast material. Bones/joints: Transverse supracondylar fracture demonstrates mild dorsal angulation. Soft tissues: Normal. IMPRESSION: Immobilized supracondylar fracture.
--- NOTE | 2022-12-16 01:28 | XR_ITS ---
PROCEDURE INFORMATION: Exam: XR Left Forearm Exam date and time: 12/16/2022 1:49 AM Age: 77 years old Clinical indication: Injury or trauma; Blunt trauma (contusions or hematomas); Arm, lower; Left; Patient HX: HX previous fall with FX, arm in splint. TECHNIQUE: Imaging protocol: Radiologic exam of the left forearm. Views: 2 views. COMPARISON: CT ELBOW LT WO CON 12/12/2022 11:35 AM FINDINGS: Tubes, catheters and devices: Extremity is immobilized in composite cast material. Bones/joints: There is a supracondylar humeral fracture which is partly visualized. Posterior angulation of the humerus is noted at the fracture site. Radius and ulna appear intact. Advanced 1st carpometacarpal arthropathy. Soft tissues: Obscured. IMPRESSION: Immobilized left upper extremity with angulated supracondylar fracture.
--- NOTE | 2022-12-16 02:59 | HMH.EDFALL ---
Discharge Plan Disposition Patient Disposition: Home, Self-Care Chief Complaint: Fall Prescriptions Prescriptions: No Action donepezil 10 mg tablet 10 mg PO DAILY memantine 10 mg tablet 10 mg PO BID loperamide 2 mg capsule 2 mg PO Q4H PRN (Reason: LOOSE STOOLS) Rx Instructions: administer after each loose stool until symptoms controlled; do not exceed 8 mg per 24 hrs albuterol sulfate [Ventolin HFA] 90 mcg/actuation HFA aerosol inhaler 2 puff IH Q4-6H PRN (Reason: SHORTNESS OF AIR) metoprolol succinate 25 mg tablet extended release 24 hr 12.5 mg PO DAILY Qty: 30 5RF fluoxetine 40 mg capsule 40 mg PO DAILY acetaminophen 500 mg TABLET 500 mg PO PRN risperidone 0.5 mg tablet 0.5 mg PO HS lorazepam 0.5 mg tablet 0.5 mg PO .COMPLEX Qty: 120 5RF Rx Instructions: 1 tablet QAM, 2 tablets @ noon & 1 tablet QHS gabapentin 400 mg capsule 400 mg PO TID Qty: 90 5RF multivitamin 1 EACH tablet 1 each PO DAILY atorvastatin 40 MG tablet 40 mg PO DAILY aspirin 81 MG tablet,chewable 81 mg PO DAILY citalopram 10 mg tablet 20 mg PO DAILY nitrofurantoin monohyd/m-cryst 100 MG capsule 100 mg PO BID bethanechol chloride 10 MG tablet 10 mg PO TID docusate sodium 250 mg capsule 100 mg PO DAILY Referrals Follow up/Referrals: Dom Pineda MD [Primary Care Provider] - See instructions Clinical Impressions Clinical Impression: Fall, Contusion of head Instructions Patient Instructions: How to Prevent Falls Discharge ED Provider: Edwin (ED)Dom Fall HPI General Chief Complaint: Fall Stated Complaint: Fall, hit head no LOC Time Seen by Provider: 12/16/22 02:59 Mode of Arrival: EMS Source of Information: Patient, EMS and Medical Record Limitations: No Limitations Description of Symptoms (Recalled from ER Triage Doc. by RN): 77 YO FEMALE PRESENTS WITH CHIEF COMPLAINT OF S/P FALL WITH CONTUSION TO OCCIPITAL AREA OF HEAD. NO LOC. NO LACERATION. History of Present Illness HPI Narrative: fell at [facility], [facility]1983 with head injury complaint: fall Onset (ago): hour(s) Fall from: out of bed Fall witnessed: yes, by bystander Place [facility] Loss of consciousness: none Prolonged down time: no Context: history of frequent falls Location of injury: head Severity: moderate Associated symptoms (after fall): denies Related Data Home Medications Medication Instructions Recorded Confirmed multivitamin 1 each PO DAILY Supplement 01/04/19 12/12/22 bethanechol chloride 10 mg tablet 10 mg PO TID URINARY RETENTION 01/27/19 12/12/22 donepezil 10 mg tablet 10 mg PO DAILY MEMORY 01/02/20 12/12/22 memantine 10 mg tablet 10 mg PO BID MEMORY 01/18/20 12/12/22 atorvastatin 40 mg tablet 40 mg PO DAILY Cholesterol 01/24/20 12/12/22 aspirin 81 mg chewable tablet 81 mg PO DAILY HEART HEALTH 04/07/20 12/12/22 citalopram 10 mg tablet 20 mg PO DAILY Depression 06/27/20 12/12/22 nitrofurantoin 100 mg PO BID . 12/10/21 12/12/22 monohydrate/macrocrystals 100 mg capsule albuterol sulfate 90 mcg/actuation 2 puff inhalation Q4-6H PRN 01/29/22 12/12/22 aerosol inhaler (Ventolin HFA) SHORTNESS OF AIR docusate sodium 250 mg capsule 100 mg PO DAILY STOOL SOFTNER 01/29/22 12/12/22 loperamide 2 mg capsule 2 mg PO Q4H PRN LOOSE STOOLS 01/29/22 12/12/22 acetaminophen 500 mg tablet 500 mg PO PRN 09/19/22 12/12/22 fluoxetine 40 mg capsule 40 mg PO DAILY 09/19/22 12/12/22 risperidone 0.5 mg tablet 0.5 mg PO HS 09/19/22 12/12/22 Previous Rx's Medication Instructions Recorded lorazepam 0.5 mg tablet 0.5 mg PO .COMPLEX Anxiety #120 01/03/22 tabs metoprolol succinate 25 mg 12.5 mg PO DAILY High blood 01/29/22 tablet,extended release 24 hr pressure #30 tabs gabapentin 400 mg capsule 400 mg PO TID Pain #90 caps 09/16/22 Allergies Allergy/AdvReac Type Severity Reaction Status Date / Time diphtheria toxoid,fluid All
== END 2022-12-16 03:56 | disposition home or self-care (01) ==
PROVIDERS: Emergency Provider Emergency Medicine; PCP Emergency Medicine
DX: S00.93XA Contusion of unspecified part of head, initial encounter (principal); Z87.891 Personal history of nicotine dependence; W06.XXXA Fall from bed, initial encounter
CPT/HCPCS: 70450; 71045; 72125; 72170; 73060; 73080; 73090; 99284; 99285

== ENCOUNTER 2023-01-05 19:41 | Emergency (ER) | payer MEDICARE, MEDICAID, SELFPAY ==
[2023-01-05] VITALS (8 sets, daily range): BP systolic 91–146; BP diastolic 44–70; PULSE 68–81; RESP 19; TEMP 36.6; O2SAT 94–98; BMI 27.8
--- NOTE | 2023-01-05 19:41 | CT_ITS ---
PROCEDURE INFORMATION: Exam: CT Cervical Spine Without Contrast Exam date and time: 01/05/2023 8:09 PM Age: 77 years old Clinical indication: Injury or trauma; Fall; Blunt trauma TECHNIQUE: Imaging protocol: Computed tomography of the cervical spine without contrast. Radiation optimization: All CT scans at this facility use at least one of these dose optimization techniques: automated exposure control; mA and/or kV adjustment per patient size (includes targeted exams where dose is matched to clinical indication); or iterative reconstruction. REPORTING DATA: Count of CT and Cardiac NM exams in prior 12 months: This patient has received 16 known CTs and 0 known cardiac nuclear medicine studies in the 12 months prior to the current study. COMPARISON: CT CERVICAL SPINE WO CON 12/16/2022 1:51 AM FINDINGS: Bones/joints: No acute fracture. Normal alignment. Multilevel degenerative disc disease with multilevel disc osteophyte complexes and facet joint arthropathy resulting in neuroforaminal and central canal narrowing. Multilevel anterior bridging osteophyte formation. Lungs: Lung apices are normal. Soft tissues: Unremarkable. IMPRESSION: Severe multilevel degenerative disc disease but no acute fracture or malalignment appreciated
--- NOTE | 2023-01-05 19:41 | CT_ITS ---
PROCEDURE INFORMATION: Exam: CT Head Without Contrast Exam date and time: 01/05/2023 8:06 PM Age: 77 years old Clinical indication: Injury or trauma; Fall; Blunt trauma (contusions or hematomas) TECHNIQUE: Imaging protocol: Computed tomography of the head without contrast. Radiation optimization: All CT scans at this facility use at least one of these dose optimization techniques: automated exposure control; mA and/or kV adjustment per patient size (includes targeted exams where dose is matched to clinical indication); or iterative reconstruction. REPORTING DATA: Count of CT and Cardiac NM exams in prior 12 months: This patient has received 16 known CTs and 0 known cardiac nuclear medicine studies in the 12 months prior to the current study. COMPARISON: CT HEAD/BRAIN WO CON 12/16/2022 1:51 AM FINDINGS: Brain: No acute intracranial hemorrhage.. There is mild diffuse heterogeneity of the white matter attenuation, consistent with chronic white matter ischemic changes. Mild cerebral atrophy Cerebral ventricles: No ventriculomegaly. Paranasal sinuses: Visualized sinuses are unremarkable. No fluid levels. Mastoid air cells: Visualized mastoid air cells are well aerated. Bones/joints: Benign hyperostosis frontalis is present. Soft tissues: Unremarkable. IMPRESSION: No acute intracranial hemorrhage..
--- NOTE | 2023-01-05 19:41 | XR_ITS ---
PROCEDURE INFORMATION: Exam: XR Pelvis Exam date and time: 01/05/2023 8:26 PM Age: 77 years old Clinical indication: Injury or trauma; Fall; Blunt trauma (contusions or hematomas); Does not apply; Pelvic region TECHNIQUE: Imaging protocol: Radiologic exam of the pelvis. Views: 1 or 2 view. COMPARISON: CR XR PELVIS 1-2V 12/16/2022 1:49 AM FINDINGS: Bones/joints: Bilateral hip arthroplasty devices in place. No hardware complications. No acute fracture. Soft tissues: Unremarkable. IMPRESSION: No acute findings.
--- NOTE | 2023-01-05 19:43 | XR_ITS ---
PROCEDURE INFORMATION: Exam: XR Chest Exam date and time: 01/05/2023 8:26 PM Age: 77 years old Clinical indication: Injury or trauma; Fall; Blunt trauma (contusions or hematomas) TECHNIQUE: Imaging protocol: Radiologic exam of the chest. Views: 1 view. COMPARISON: CR XR CHEST PORTABLE 12/16/2022 1:49 AM FINDINGS: Lungs: Mild haziness in the left lower lobe could reflect atelectasis or developing pneumonia. Pleural spaces: Unremarkable. No pleural effusion. No pneumothorax. Heart/Mediastinum: Unremarkable. No cardiomegaly. Bones/joints: Unremarkable. IMPRESSION: Atelectasis versus developing pneumonia in the left lower lobe
[2023-01-05 20:05] LABS: Basophils # 0.1 K/mm3 (0-0.2); Basophils % 0.5 % (0.1-2.0); Eosinophils # 0.4 K/mm3 (0.0-0.4); Eosinophils % 3.6 % (0.1-12.0); Hematocrit 37.1 % (37.0-47.0); Hemoglobin 11.9 g/dL (12.2-16.2); Lymphocytes # 2.1 K/mm3 (0.7-4.5); Lymphocytes % 19.9 % (10-50); Mean Corpuscular HGB Conc 32.2 g/dL (31.8-35.4); Mean Corpuscular Hemoglobin 30.6 pg (27.0-31.2); Mean Corpuscular Volume 95.1 fl (81-99); Mean Platelet Volume 8.9 fl (7.4-10.4); Monocytes # 0.9 K/mm3 (0.1-1.0); Monocytes % 8.2 % (1.7-9.3); Neutrophils # 7.1 K/mm3 (1.8-7.8); Neutrophils % 67.8 % (37.0-80.0); Platelet Count 248 K/mm3 (142-424); Red Cell Distribution Width 13.9 % (11.5-17.5); White Blood Count 10.4 K/mm3 (4.8-10.8)
[2023-01-05 20:22] LABS: Chloride 101 mmol/L (98-107); Sodium 140 mmol/L (136-145)
[2023-01-05 20:24] LABS: Alanine Aminotransferase 25 U/L (12-78); Aspartate Amino Transferase 36 U/L (14-36); Blood Urea Nitrogen 32 mg/dl (7-17); Creatinine Clearance Estimated 47 mL/min (50-200); Estimated Glomerular Filt Rate 48 ml/min (>60); GFR (African American) 58 ML/MIN (>60)
[2023-01-05 20:25] LABS: Albumin Level 3.5 g/dl (3.5-5.0); Albumin/Globulin Ratio 1.2 (1.1-1.8); Alkaline Phosphatase 208 U/L (38-126); Bilirubin,Total 0.2 mg/dl (0.2-1.3); Calcium 8.6 mg/dl (8.4-10.2); Carbon Dioxide 29 mmol/L (22.0-30.0); Globulin 2.9 g/dL (1.3-3.2); Glucose 124 mg/dl (74-100); Total Protein,Serum 6.4 g/dl (6.3-8.2)
[2023-01-05 20:37] LABS: Troponin I < 0.01 ng/ml (0.00-0.034)
--- NOTE | 2023-01-05 20:47 | XR_ITS ---
PROCEDURE INFORMATION: Exam: XR Left Humerus Exam date and time: 01/05/2023 9:09 PM Age: 77 years old Clinical indication: Injury or trauma; Fall; Blunt trauma (contusions or hematomas); Arm, upper; Patient HX: HX of fracture, left arm in cast TECHNIQUE: Imaging protocol: Radiologic exam of the left humerus. Views: 2 or more views. COMPARISON: CR XR HUMERUS LT 12/16/2022 1:49 AM FINDINGS: Bones/joints: There is a comminuted distal humerus fracture with a fracture also through the medial epicondyle. No intra-articular extension. No additional fracture . Anterior inferior glenohumeral joint dislocation is also suspected. Soft tissues: Normal. IMPRESSION: 1. Anterior inferior glenohumeral joint dislocation is suspected. 2. Distal humerus fracture.
--- NOTE | 2023-01-05 20:59 | PC.NURSE ---
patient back in room from [facility] at this time.
--- NOTE | 2023-01-05 21:40 | XR_ITS ---
PROCEDURE INFORMATION: Exam: XR Left Shoulder Exam date and time: 01/05/2023 10:01 PM Age: 77 years old Clinical indication: Abnormal findings; Abnormal imaging study of the limbs; Left humerus; Additional info: Shoulder TECHNIQUE: Imaging protocol: Radiologic exam of the left shoulder. Views: 2 or more views. COMPARISON: CR XR SHOULDER LT MIN 2V 07/16/2021 8:20 PM FINDINGS: Bones/joints: Suspect anterior inferior glenohumeral dislocation. No fracture Soft tissues: Normal. IMPRESSION: Suspect anterior inferior glenohumeral dislocation. No fracture
--- NOTE | 2023-01-05 21:41 | HMH.EDFALL ---
Discharge Plan Disposition Patient Disposition: Xfer Other Condition: Fair Prescriptions Prescriptions: No Action donepezil 10 mg tablet 10 mg PO DAILY memantine 10 mg tablet 10 mg PO BID loperamide 2 mg capsule 2 mg PO Q4H PRN (Reason: LOOSE STOOLS) Rx Instructions: administer after each loose stool until symptoms controlled; do not exceed 8 mg per 24 hrs albuterol sulfate [Ventolin HFA] 90 mcg/actuation HFA aerosol inhaler 2 puff IH Q4-6H PRN (Reason: SHORTNESS OF AIR) metoprolol succinate 25 mg tablet extended release 24 hr 12.5 mg PO DAILY Qty: 30 5RF fluoxetine 40 mg capsule 40 mg PO DAILY acetaminophen 500 mg TABLET 500 mg PO PRN risperidone 0.5 mg tablet 0.5 mg PO HS lorazepam 0.5 mg tablet 0.5 mg PO .COMPLEX Qty: 120 5RF Rx Instructions: 1 tablet QAM, 2 tablets @ noon & 1 tablet QHS gabapentin 400 mg capsule 400 mg PO TID Qty: 90 5RF tramadol 50 mg tablet 50 mg PO TID PRN (Reason: pain) Qty: 90 2RF multivitamin 1 EACH tablet 1 each PO DAILY atorvastatin 40 MG tablet 40 mg PO DAILY aspirin 81 MG tablet,chewable 81 mg PO DAILY citalopram 10 mg tablet 20 mg PO DAILY nitrofurantoin monohyd/m-cryst 100 MG capsule 100 mg PO BID bethanechol chloride 10 MG tablet 10 mg PO TID docusate sodium 250 mg capsule 100 mg PO DAILY Referrals Follow up/Referrals: Dom Pineda MD [Primary Care Provider] - See instructions Clinical Impressions Clinical Impression: Dislocation closed, shoulder, Fracture of distal end of humerus Stand Alone Forms Stand Alone Forms: Transfer Record - ED Discharge ED Provider: Carly Serrano HPI General Chief Complaint: Fall Stated Complaint: fall Time Seen by Provider: 01/05/23 20:30 Mode of Arrival: EMS Limitations: No Limitations Description of Symptoms (Recalled from ER Triage Doc. by RN): fall where patient reveals she slipped off the bed. right forearm s/t,previous cast in place to left arm for previous fracture froma fall. patient denies loc. unwitnessed. History of Present Illness HPI Narrative: Patient is a 77-year female who is here secondary to fall. Patient apparently had an unwitnessed fall at the correction. According to with the patient states she slipped out of bed. She was found on the floor. Patient complains of being very fatigued and weak. She has nothing focal that she complains about. She does not complain of a headache neck pain chest abdominal pain or upper or lower back pain. She does have pain in her left arm where she broke her humerus. No other extremity injury. She has history of dementia history is limited but she is able to answer questions in terms of what happened. However at other times she does get confused. MD complaint: fall Onset (ago): hour(s) Fall from: out of bed Fall witnessed: no Place fall occurred: correction/SNF Loss of consciousness: none Prolonged down time: no Symptoms prior to fall: none Associated symptoms (after fall): denies Related Data Home Medications Medication Instructions Recorded Confirmed multivitamin 1 each PO DAILY Supplement 01/04/19 12/12/22 bethanechol chloride 10 mg tablet 10 mg PO TID URINARY RETENTION 01/27/19 12/12/22 donepezil 10 mg tablet 10 mg PO DAILY MEMORY 01/02/20 12/12/22 memantine 10 mg tablet 10 mg PO BID MEMORY 01/18/20 12/12/22 atorvastatin 40 mg tablet 40 mg PO DAILY Cholesterol 01/24/20 12/12/22 aspirin 81 mg chewable tablet 81 mg PO DAILY HEART HEALTH 04/07/20 12/12/22 citalopram 10 mg tablet 20 mg PO DAILY Depression 06/27/20 12/12/22 nitrofurantoin 100 mg PO BID . 12/10/21 12/12/22 monohydrate/macrocrystals 100 mg capsule albuterol sulfate 90 mcg/actuation 2 puff inhalation Q4-6H PRN 01/29/22 12/12/22 aerosol inhaler (Ventolin HFA) SHORTNESS OF AIR docusate sodium 250 mg capsule 100 mg PO DAILY STOOL SOFTNER 01/29/22 12/12/22 tyler
--- NOTE | 2023-01-05 22:19 | PC.NURSE ---
paged dr Phelan @ this time
--- NOTE | 2023-01-05 22:20 | PC.NURSE ---
on phone with dr Phelan
--- NOTE | 2023-01-05 22:35 | PC.NURSE ---
called [facility] for Ortho Consult they will call us back at this time
--- NOTE | 2023-01-05 22:45 | PC.NURSE ---
Called pt's daughter and PARMINDER Monzon and gave pt updated
--- NOTE | 2023-01-05 23:41 | PC.NURSE ---
pt's poa and daughter Na has been updated that pt has been accepted and will be transfer to [facility]
[2023-01-05 23:45] LABS: Troponin I < 0.01 ng/ml (0.00-0.034)
[2023-01-06 01:13] VITALS: BP 135/72; PULSE 71; RESP 15; TEMP 36.7; O2SAT 98
== END 2023-01-06 01:41 | disposition other institution (70) ==
PROVIDERS: Emergency Provider Emergency Medicine; PCP Emergency Medicine
DX: S42.402A Unspecified fracture of lower end of left humerus, initial encounter for closed fracture (principal); S43.015A Anterior dislocation of left humerus, initial encounter; W06.XXXA Fall from bed, initial encounter; Z87.891 Personal history of nicotine dependence
CPT/HCPCS: 36415; 70450; 71045; 72125; 72170; 73030; 73060; 80053; 84484; 85025; 99285; 99291

== ENCOUNTER 2023-01-14 17:58 | Emergency (ER) | payer MEDICARE, MEDICAID, SELFPAY ==
[2023-01-14 17:58] VITALS: BP 142/81; PULSE 65; RESP 18; TEMP 36.6; O2SAT 97; BMI 25.7
--- NOTE | 2023-01-14 18:11 | PC.NURSE ---
pt is laying in bed resting, tap garces at bedside
[2023-01-14 18:30] VITALS: BP 137/76; PULSE 65; O2SAT 96
--- NOTE | 2023-01-14 19:04 | XR_ITS ---
PROCEDURE INFORMATION: Exam: XR Left Elbow Exam date and time: 01/14/2023 7:08 PM Age: 77 years old Clinical indication: Pain; Elbow; Left; Additional info: Left arm pain TECHNIQUE: Imaging protocol: Radiologic exam of the left elbow. Views: 3 or more views. COMPARISON: CR XR ELBOW LT MIN 3V 16/12/2022 01:49 FINDINGS: Bones/joints: Periosteal reaction around the distal humeral fracture. No significant change interval change in position of bones. Overlying splinting material obscures finer detail of bone and soft tissue. Soft tissues: Unremarkable. IMPRESSION: Overlying splinting material obscures finer detail of bone and soft tissue. Within the limitations of the study, there are no new fractures.
--- NOTE | 2023-01-14 19:04 | XR_ITS ---
PROCEDURE INFORMATION: Exam: XR Left Shoulder Exam date and time: 01/14/2023 7:08 PM Age: 77 years old Clinical indication: Injury or trauma; Fall; Blunt trauma (contusions or hematomas); Shoulder; Left; Additional info: Fall, shoulder pain TECHNIQUE: Imaging protocol: Radiologic exam of the left shoulder. Views: 2 or more views. COMPARISON: CR XR SHOULDER RT MIN 2V 04/04/2023 22:01 FINDINGS: Bones/joints: There is widening of acromioclavicular joint. Distal clavicle is mildly inferior relative to the acromion process. The humeral head overlaps with the glenoid on multiple images. Soft tissues: Normal. Other findings: Evaluation is limited due to difficulty positioning the patient. IMPRESSION: 1. Evaluation is limited due to difficulty positioning the patient. Within the limitations of the study, there may be anterior subluxation or dislocation of the humeral head. 2. There is widening of acromioclavicular joint. Distal clavicle is mildly inferior relative to the acromion process. This is most likely a chronic AC joint injury. Please correlate with point tenderness.
--- NOTE | 2023-01-14 19:04 | HMH.EDGENADL ---
Discharge Plan Disposition Patient Disposition: er [facility] Chief Complaint: Fall Prescriptions Prescriptions: No Action donepezil 10 mg tablet 10 mg PO DAILY memantine 10 mg tablet 10 mg PO BID loperamide 2 mg capsule 2 mg PO Q4H PRN (Reason: LOOSE STOOLS) Rx Instructions: administer after each loose stool until symptoms controlled; do not exceed 8 mg per 24 hrs albuterol sulfate [Ventolin HFA] 90 mcg/actuation HFA aerosol inhaler 2 puff IH Q4-6H PRN (Reason: SHORTNESS OF AIR) metoprolol succinate 25 mg tablet extended release 24 hr 12.5 mg PO DAILY Qty: 30 5RF fluoxetine 40 mg capsule 40 mg PO DAILY acetaminophen 500 mg TABLET 500 mg PO PRN risperidone 0.5 mg tablet 0.5 mg PO HS lorazepam 0.5 mg tablet 0.5 mg PO .COMPLEX Qty: 120 5RF Rx Instructions: 1 tablet QAM, 2 tablets @ noon & 1 tablet QHS gabapentin 400 mg capsule 400 mg PO TID Qty: 90 5RF tramadol 50 mg tablet 50 mg PO TID PRN (Reason: pain) Qty: 90 2RF multivitamin 1 EACH tablet 1 each PO DAILY atorvastatin 40 MG tablet 40 mg PO DAILY aspirin 81 MG tablet,chewable 81 mg PO DAILY citalopram 10 mg tablet 20 mg PO DAILY nitrofurantoin monohyd/m-cryst 100 MG capsule 100 mg PO BID bethanechol chloride 10 MG tablet 10 mg PO TID docusate sodium 250 mg capsule 100 mg PO DAILY Clinical Impressions Clinical Impression: Dislocation closed, shoulder, Fall, Anterior subluxation of shoulder Instructions Patient Instructions: Shoulder Instability Discharge ED Provider: Carlito Garcia General Adult HPI <Carlito Garcia MD - Last Filed: 01/14/23 19:27> General Chief complaint: Fall Stated complaint: fall Time Seen by Provider: 01/14/23 20:00 Mode of Arrival: EMS Source of Information: Patient and EMS Limitations: No Limitations Description of Symptoms (Recalled from ER Triage Doc. by RN): Patient fell getting out of bed. Per EMS patient has complained of left arm pain and right wrist pain. History of Present Illness HPI narrative: Patient presents to the emergency department after reportedly falling after getting out of bed. The patient reportedly hurt her left arm and right wrist. The patient recently broke her left arm. No other significant information is known Related Data Home Medications Medication Instructions Recorded Confirmed multivitamin 1 each PO DAILY Supplement 01/04/19 12/12/22 bethanechol chloride 10 mg tablet 10 mg PO TID URINARY RETENTION 01/27/19 12/12/22 donepezil 10 mg tablet 10 mg PO DAILY MEMORY 01/02/20 12/12/22 memantine 10 mg tablet 10 mg PO BID MEMORY 01/18/20 12/12/22 atorvastatin 40 mg tablet 40 mg PO DAILY Cholesterol 01/24/20 12/12/22 aspirin 81 mg chewable tablet 81 mg PO DAILY HEART HEALTH 04/07/20 12/12/22 citalopram 10 mg tablet 20 mg PO DAILY Depression 06/27/20 12/12/22 nitrofurantoin 100 mg PO BID . 12/10/21 12/12/22 monohydrate/macrocrystals 100 mg capsule albuterol sulfate 90 mcg/actuation 2 puff inhalation Q4-6H PRN 01/29/22 12/12/22 aerosol inhaler (Ventolin HFA) SHORTNESS OF AIR docusate sodium 250 mg capsule 100 mg PO DAILY STOOL SOFTNER 01/29/22 12/12/22 loperamide 2 mg capsule 2 mg PO Q4H PRN LOOSE STOOLS 01/29/22 12/12/22 acetaminophen 500 mg tablet 500 mg PO PRN 09/19/22 12/12/22 fluoxetine 40 mg capsule 40 mg PO DAILY 09/19/22 12/12/22 risperidone 0.5 mg tablet 0.5 mg PO HS 09/19/22 12/12/22 Previous Rx's Medication Instructions Recorded lorazepam 0.5 mg tablet 0.5 mg PO .COMPLEX Anxiety #120 01/03/22 tabs metoprolol succinate 25 mg 12.5 mg PO DAILY High blood 01/29/22 tablet,extended release 24 hr pressure #30 tabs gabapentin 400 mg capsule 400 mg PO TID Pain #90 caps 09/16/22 tramadol 50 mg tablet 50 mg PO TID PRN pain #90 tabs 12/31/22 Allergies Allergy/AdvReac Type Severity Reaction Status Date / Time diphtheria toxoid,fluid Allergy Unknown Unknown Verif
--- NOTE | 2023-01-14 19:25 | XR_ITS ---
PROCEDURE INFORMATION: Exam: XR Right Wrist Exam date and time: 01/14/2023 7:44 PM Age: 77 years old Clinical indication: Injury or trauma; Fall; Blunt trauma (contusions or hematomas); Wrist; Right TECHNIQUE: Imaging protocol: Radiologic exam of the right wrist. Views: 3 or more views. COMPARISON: No relevant prior studies available. FINDINGS: Bones/joints: Widening of the scapholunate interval. Osteoarthrosis of the thumb carpometacarpal joint. Soft tissues: Unremarkable. IMPRESSION: Widening of the scapholunate interval. This could represent chronic wrist injury and/or instability.
--- NOTE | 2023-01-14 19:25 | CT_ITS ---
PROCEDURE INFORMATION: Exam: CT Head Without Contrast Exam date and time: 01/14/2023 7:44 PM Age: 77 years old Clinical indication: Injury or trauma; Fall; Blunt trauma (contusions or hematomas); Consciousness not specified TECHNIQUE: Imaging protocol: Computed tomography of the head without contrast. Radiation optimization: All CT scans at this facility use at least one of these dose optimization techniques: automated exposure control; mA and/or kV adjustment per patient size (includes targeted exams where dose is matched to clinical indication); or iterative reconstruction. REPORTING DATA: Count of CT and Cardiac NM exams in prior 12 months: This patient has received 18 known CTs and 0 known cardiac nuclear medicine studies in the 12 months prior to the current study. COMPARISON: CT HEAD/BRAIN WO CON 04/04/2023 20:06 FINDINGS: Brain: Moderate chronic brain volume loss and chronic small vessel ischemic changes. Cerebral ventricles: No ventriculomegaly. Paranasal sinuses: Visualized sinuses are unremarkable. No fluid levels. Mastoid air cells: Visualized mastoid air cells are well aerated. Orbital cavities: Status post bilateral cataract surgery. Bones/joints: Hyperostosis frontalis interna. Soft tissues: Unremarkable. Vasculature: Right internal carotid arterial stent. IMPRESSION: No acute intracranial findings.
[2023-01-14 19:36] VITALS: BP 137/80; PULSE 62; O2SAT 96
[2023-01-14 20:00] VITALS: BP 122/79; PULSE 63; O2SAT 97
--- NOTE | 2023-01-14 20:21 | PC.NURSE ---
Dr. Pineda at
--- NOTE | 2023-01-14 20:29 | PC.NURSE ---
Spoke with pt daughter, Na, and gave pt update
[2023-01-14 20:30] VITALS: BP 139/79; PULSE 64; O2SAT 100
--- NOTE | 2023-01-14 20:30 | PC.NURSE ---
Called [facility] spoke with Amara in medical records per pt records
--- NOTE | 2023-01-14 20:48 | PC.NURSE ---
Received pt records from
--- NOTE | 2023-01-14 21:03 | XR_ITS ---
PROCEDURE INFORMATION: Exam: XR Left Shoulder Exam date and time: 01/14/2023 9:04 PM Age: 77 years old Clinical indication: Abnormal findings; Abnormal imaging study of the limbs; Lt shoulder; Additional info: Post reduction TECHNIQUE: Imaging protocol: Radiologic exam of the left shoulder. Views: 1 view. COMPARISON: CR XR SHOULDER LT MIN 2V 14/01/2023 19:08 FINDINGS: Bones/joints: Based on the single image provided, there is less anterior subluxation of the humeral head compared to prior study. Heart/Mediastinum: Probable cardiomegaly. Vasculature: Vascular calcifications. Soft tissues: Normal. IMPRESSION: Based on the single image provided, there is less anterior subluxation of the humeral head compared to prior study.
--- NOTE | 2023-01-14 21:05 | PC.NURSE ---
Physician assisted with attempting to maneuver patients shoulder back into place.
--- NOTE | 2023-01-14 21:25 | CT_ITS ---
PROCEDURE INFORMATION: Exam: CT Left Upper Extremity Without Contrast, Shoulder Exam date and time: 01/14/2023 9:38 PM Age: 77 years old Clinical indication: Abnormal findings; Abnormal imaging study of the limbs; Shoulder; Additional info: Fall TECHNIQUE: Imaging protocol: Computed tomography of the left upper extremity without contrast. Exam focused on the shoulder. Radiation optimization: All CT scans at this facility use at least one of these dose optimization techniques: automated exposure control; mA and/or kV adjustment per patient size (includes targeted exams where dose is matched to clinical indication); or iterative reconstruction. REPORTING DATA: Count of CT and Cardiac NM exams in prior 12 months: This patient has received 18 known CTs and 0 known cardiac nuclear medicine studies in the 12 months prior to the current study. COMPARISON: CR XR SHOULDER LT 1V 14/01/2023 21:04 FINDINGS: Bones/joints: The left glenoid is significantly remodeled and buttressing likely related to chronic arthritis. Moderate-sized glenohumeral joint effusion. There is anterior angulation of the glenoid likely related to chronic remodeling. There appears to be calcifications of the posterior aspect of the bursal sac near the inferior glenoid. Superior subluxation of humeral head likely due to chronic rotator cuff tear. The humeral head rests between the coracoid process and glenoid. Soft tissues: Normal. Vasculature: The aorta demonstrates severe atherosclerotic disease. IMPRESSION: The anterior subluxation of the humeral head seen on radiographs is a chronic finding related to bony remodeling of the shoulder as a result of arthritis. No acute fractures.
[2023-01-14 22:47] VITALS: BP 139/79; PULSE 64; RESP 16; TEMP 37.1; O2SAT 100
== END 2023-01-14 23:07 ==
PROVIDERS: Emergency Provider Emergency Medicine; PCP Emergency Medicine
DX: F17.210 Nicotine dependence, cigarettes, uncomplicated (principal); S43.015A Anterior dislocation of left humerus, initial encounter; W06.XXXA Fall from bed, initial encounter
CPT/HCPCS: 23650; 70450; 73020; 73030; 73080; 73110; 73200; 99284; 99285

== ENCOUNTER 2023-02-15 06:03 | Emergency (ER) | payer MEDICARE, MEDICAID, SELFPAY ==
--- NOTE | 2023-02-15 05:36 | ECG_ITS ---
APPROVED REPORT Exam: Resting ECG HR:60 bpm ECG Measurements Heart Rate 60 AXES IN 156 P 72 QRSd 82 QRS 37 QT 420 T 52 QTc 420 Conclusion SINUS RHYTHM NORMAL ECG UNCONFIRMED REPORT Electronically signed by : Neftali Avalos MD 02/16/2023 07:49:18
[2023-02-15 05:37] VITALS: BP 105/73; PULSE 59; RESP 16; TEMP 36.6; O2SAT 94; BMI 27.4
--- NOTE | 2023-02-15 06:13 | CT_ITS ---
PROCEDURE INFORMATION: Exam: CT Abdomen And Pelvis With Contrast Exam date and time: 02/15/2023 6:50 AM Age: 77 years old Clinical indication: Injury or trauma; Fall; Additional info: Fall with back injury TECHNIQUE: Imaging protocol: Computed tomography of the abdomen and pelvis with contrast. Radiation optimization: All CT scans at this facility use at least one of these dose optimization techniques: automated exposure control; mA and/or kV adjustment per patient size (includes targeted exams where dose is matched to clinical indication); or iterative reconstruction. Contrast material: ISOVUE; Contrast volume: 75 ml; Contrast route: IV; REPORTING DATA: Count of CT and Cardiac NM exams in prior 12 months: This patient has received 20 known CTs and 0 known cardiac nuclear medicine studies in the 12 months prior to the current study. COMPARISON: CR XR PELVIS 1-2V 01/05/2023 8:26 PM FINDINGS: Coronary arteries: Coronary atherosclerosis. Liver: Normal. No mass. Gallbladder and bile ducts: A large stone is seen in the gallbladder. Pancreas: Normal. No ductal dilation. Spleen: Normal. No splenomegaly. Adrenal glands: Normal. No mass. Kidneys and ureters: Normal. No hydronephrosis. Stomach and bowel: Prior small bowel anastomosis is seen in the mid abdomen. Appendix: No evidence of appendicitis. Intraperitoneal space: Unremarkable. No free air. No significant fluid collection. Vasculature: Ectasia of the abdominal aorta is present maximum diameter 2.6 cm. Lymph nodes: Unremarkable. No enlarged lymph nodes. Urinary bladder: Concentric diffuse bladder wall thickening is noted. Reproductive: Unremarkable as visualized. Bones/joints: The patient is status post bilateral hip arthroplasty. Diffuse osteopenia. Diffuse degenerative disc disease of the lumbar spine. Soft tissues: Unremarkable. IMPRESSION: 1. No acute traumatic injury identified. 2. Coronary atherosclerosis. 3. Cholelithiasis. 4. Prior abdominal surgery with small bowel anastomosis. 5. Ectasia of the abdominal aorta.
--- NOTE | 2023-02-15 06:13 | CT_ITS ---
PROCEDURE INFORMATION: Exam: CT Head Without Contrast Exam date and time: 02/15/2023 6:40 AM Age: 77 years old Clinical indication: Injury or trauma; Fall; Additional info: Fall with back injury TECHNIQUE: Imaging protocol: Computed tomography of the head without contrast. Radiation optimization: All CT scans at this facility use at least one of these dose optimization techniques: automated exposure control; mA and/or kV adjustment per patient size (includes targeted exams where dose is matched to clinical indication); or iterative reconstruction. REPORTING DATA: Count of CT and Cardiac NM exams in prior 12 months: This patient has received 20 known CTs and 0 known cardiac nuclear medicine studies in the 12 months prior to the current study. COMPARISON: CT HEAD/BRAIN WO CON 01/14/2023 7:44 PM FINDINGS: Brain: There is diffuse prominence of the cerebral sulci, cisterns, and ventricles consistent with atrophy. No intra or extra-axial fluid collections are noted. No mass or mass effect is seen. Periventricular white matter hypoattenuation is seen consistent with small vessel chronic ischemic changes. Cerebral ventricles: No ventriculomegaly. Paranasal sinuses: Visualized sinuses are unremarkable. No fluid levels. Mastoid air cells: Visualized mastoid air cells are well aerated. Bones/joints: Unremarkable. No acute fracture. Soft tissues: Unremarkable. IMPRESSION: No acute process noted.
--- NOTE | 2023-02-15 06:13 | XR_ITS ---
PROCEDURE INFORMATION: Exam: XR Pelvis Exam date and time: 02/15/2023 6:52 AM Age: 77 years old Clinical indication: Injury or trauma; Fall; Blunt trauma (contusions or hematomas); Pelvic region; Prior surgery; Surgery date: 6+ months; Surgery type: Bilateral hip replacements; Additional info: Fall-- also has a CT of abd/ pelvis TECHNIQUE: Imaging protocol: Radiologic exam of the pelvis. Views: 1 or 2 view. COMPARISON: CT ABDOMEN PELVIS W CON 02/15/2023 6:50 AM FINDINGS: Bones/joints: Status post bilateral hip arthroplasty. No bony fracture or malalignment noted. Soft tissues: Unremarkable. Vasculature: Some intravenous contrast is seen in the distal ureters which appear nonobstructed. IMPRESSION: Postoperative changes. No acute fracture or dislocation noted.
--- NOTE | 2023-02-15 06:13 | CT_ITS ---
PROCEDURE INFORMATION: Exam: CT Cervical Spine Without Contrast Exam date and time: 02/15/2023 6:42 AM Age: 77 years old Clinical indication: Injury or trauma; Fall; Additional info: Fall with back injury TECHNIQUE: Imaging protocol: Computed tomography of the cervical spine without contrast. Radiation optimization: All CT scans at this facility use at least one of these dose optimization techniques: automated exposure control; mA and/or kV adjustment per patient size (includes targeted exams where dose is matched to clinical indication); or iterative reconstruction. REPORTING DATA: Count of CT and Cardiac NM exams in prior 12 months: This patient has received 20 known CTs and 0 known cardiac nuclear medicine studies in the 12 months prior to the current study. COMPARISON: CT CERVICAL SPINE WO CON 01/05/2023 8:09 PM FINDINGS: Bones/joints: Diffuse cervical spondylosis is noted. Hypertrophic changes of the facet present bilaterally. Discs/Spinal canal/Neural foramina: Narrowing of multiple intervertebral disc spaces are seen. Moderate neural foraminal narrowing is also noted. Lungs: Lung apices are normal. Vasculature: No obvious traumatic injury is seen. Carotid atherosclerosis is present. Soft tissues: Unremarkable. IMPRESSION: 1. No evidence of acute traumatic injury. 2. Diffuse cervical spondylosis. 3. Carotid atherosclerosis is present.
--- NOTE | 2023-02-15 06:13 | XR_ITS ---
PROCEDURE INFORMATION: Exam: XR Chest Exam date and time: 02/15/2023 6:52 AM Age: 77 years old Clinical indication: Injury or trauma; Fall; Blunt trauma (contusions or hematomas) TECHNIQUE: Imaging protocol: Radiologic exam of the chest. Views: 1 view. COMPARISON: CR XR CHEST AP 01/05/2023 8:26 PM FINDINGS: Lungs: Unremarkable. No consolidation. Pleural spaces: No pneumothorax noted. Heart/Mediastinum: Cardiomegaly. Tortuosity of the thoracic aorta. Bones/joints: The patient is diffusely osteopenic. IMPRESSION: No acute process identified.
--- NOTE | 2023-02-15 06:13 | XR_ITS ---
PROCEDURE INFORMATION: Exam: XR Left Hand Exam date and time: 02/15/2023 6:52 AM Age: 77 years old Clinical indication: Injury or trauma; Fall; Blunt trauma (contusions or hematomas); Hand; Left TECHNIQUE: Imaging protocol: Radiologic exam of the left hand. Views: 3 or more views. COMPARISON: CR XR FOREARM LT 2V 12/16/2022 1:49 AM FINDINGS: Bones/joints: Diffuse osteopenia. Osteoarthritic degenerative changes most prominently in the distal interphalangeal joint spaces is well as the 1st carpometacarpal joint. No fracture identified. Soft tissues: Normal. IMPRESSION: Osteopenia and diffuse degenerative changes without acute fracture or dislocation.
--- NOTE | 2023-02-15 06:14 | CT_ITS ---
PROCEDURE INFORMATION: Exam: CT Thoracic Spine Without Contrast Exam date and time: 02/15/2023 6:45 AM Age: 77 years old Clinical indication: Injury or trauma; Fall TECHNIQUE: Imaging protocol: Computed tomography of the thoracic spine without contrast. Radiation optimization: All CT scans at this facility use at least one of these dose optimization techniques: automated exposure control; mA and/or kV adjustment per patient size (includes targeted exams where dose is matched to clinical indication); or iterative reconstruction. REPORTING DATA: Count of CT and Cardiac NM exams in prior 12 months: This patient has received 20 known CTs and 0 known cardiac nuclear medicine studies in the 12 months prior to the current study. COMPARISON: CT CERVICAL SPINE WO CON 02/15/2023 6:42 AM FINDINGS: Bones/joints: No acute fracture. Normal alignment. No significant disc bulge or herniation. No severe spinal canal stenosis. No significant neural foraminal narrowing. Soft tissues: Unremarkable. IMPRESSION: Unremarkable CT Spine.
--- NOTE | 2023-02-15 06:14 | XR_ITS ---
PROCEDURE INFORMATION: Exam: XR Left Knee Exam date and time: 02/15/2023 6:52 AM Age: 77 years old Clinical indication: Injury or trauma; Fall; Blunt trauma; Knee; Left TECHNIQUE: Imaging protocol: Radiologic exam of the left knee. Views: 3 views. COMPARISON: US CA venous doppler LE 06/07/2018 2:29 PM FINDINGS: Bones/joints: Normal. Soft tissues: Normal. IMPRESSION: No acute findings.
--- NOTE | 2023-02-15 06:14 | CT_ITS ---
PROCEDURE INFORMATION: Exam: CT Lumbar Spine Without Contrast Exam date and time: 02/15/2023 6:48 AM Age: 77 years old Clinical indication: Injury or trauma; Fall TECHNIQUE: Imaging protocol: Computed tomography of the lumbar spine without contrast. Radiation optimization: All CT scans at this facility use at least one of these dose optimization techniques: automated exposure control; mA and/or kV adjustment per patient size (includes targeted exams where dose is matched to clinical indication); or iterative reconstruction. REPORTING DATA: Count of CT and Cardiac NM exams in prior 12 months: This patient has received 20 known CTs and 0 known cardiac nuclear medicine studies in the 12 months prior to the current study. COMPARISON: CT THORACIC SPINE WO CON 02/15/2023 6:45 AM FINDINGS: Bones/joints: Diffuse degenerative changes are seen throughout consistent with degenerative disc disease. Significant narrowing of the intervertebral disc spaces with vacuum disc phenomena are seen in all of the lumbar interspaces. Marginal osteophytes are present. Hypertrophic changes of the facets are seen. Bilateral neural foraminal narrowing is noted. Vasculature: Tortuosity of the abdominal aorta is seen consistent with diffuse aortic ectasia. Soft tissues: Unremarkable. IMPRESSION: 1. No acute traumatic injury identified. 2. Moderate to severe degenerative disc disease.
[2023-02-15 06:20] LABS: Basophils # 0.1 K/mm3 (0-0.2); Basophils % 0.6 % (0.1-2.0); Eosinophils # 0.5 K/mm3 (0.0-0.4); Eosinophils % 5.4 % (0.1-12.0); Hematocrit 40.1 % (37.0-47.0); Hemoglobin 12.5 g/dL (12.2-16.2); Lymphocytes # 2.5 K/mm3 (0.7-4.5); Lymphocytes % 27.1 % (10-50); Mean Corpuscular HGB Conc 31.2 g/dL (31.8-35.4); Mean Corpuscular Hemoglobin 29.6 pg (27.0-31.2); Mean Platelet Volume 9.3 fl (7.4-10.4); Monocytes # 0.7 K/mm3 (0.1-1.0); Monocytes % 7.7 % (1.7-9.3); Neutrophils # 5.4 K/mm3 (1.8-7.8); Neutrophils % 59.2 % (37.0-80.0); Platelet Count 214 K/mm3 (142-424); Red Blood Count 4.22 M/mm3 (4.20-5.40); Red Cell Distribution Width 13.7 % (11.5-17.5); White Blood Count 9.1 K/mm3 (4.8-10.8)
[2023-02-15 06:23] LABS: Chloride 106 mmol/L (98-107); Potassium 4.4 mmoL/L (3.5-5.1); Sodium 144 mmol/L (136-145)
[2023-02-15 06:25] LABS: Alanine Aminotransferase 22 U/L (12-78); Aspartate Amino Transferase 26 U/L (14-36); Blood Urea Nitrogen 28 mg/dl (7-17); Creatinine Clearance Estimated 56 mL/min (50-200); Estimated Glomerular Filt Rate 61 ml/min (>60); GFR (African American) 73 ML/MIN (>60)
[2023-02-15 06:26] LABS: Albumin Level 3.6 g/dl (3.5-5.0); Albumin/Globulin Ratio 1.2 (1.1-1.8); Alkaline Phosphatase 171 U/L (38-126); Anion Gap 12.4 mEq/L (5-15); Bilirubin,Total 0.2 mg/dl (0.2-1.3); Calcium 9.2 mg/dl (8.4-10.2); Carbon Dioxide 30 mmol/L (22.0-30.0); Globulin 3.1 g/dL (1.3-3.2); Glucose 94 mg/dl (74-100); Total Protein,Serum 6.7 g/dl (6.3-8.2)
[2023-02-15 06:38] LABS: Troponin I < 0.01 ng/ml (0.00-0.034)
--- NOTE | 2023-02-15 07:00 | PC.NURSE ---
Assumed patient care
--- NOTE | 2023-02-15 07:10 | PC.NURSE ---
Rounded on patient; cleaned patient and changed bed sheets. Offered patient warm blankets and a pillow. Call garces within reach
[2023-02-15 07:29] LABS: Microscopic, Urine URINE MICROSCOPIC (MICROSCOPIC)
[2023-02-15 07:30] VITALS: BP 133/72; PULSE 63; RESP 18; O2SAT 94
[2023-02-15 07:30] LABS: Appearance,Urine CLOUDY (Clear); Bilirubin,Urine Negative (Negative); Blood, Urine 1+ (Negative); Color,Urine YELLOW (Yellow); Glucose,Urine (UA) Negative (Negative); Ketones,Urine Negative (Negative); Leukocyte Esterase,Urine 3+ (Negative); Nitrate,Urine Negative (Negative); Protein,Urine 1+ (Negative); Specific Gravity, Urine 1.015 (1.005-1.030); Urobilinogen,Urine 0.2 EU/dl (0.2)
--- NOTE | 2023-02-15 07:38 | HMH.EDFALL ---
Discharge Plan Disposition Patient Disposition: Xfer [facility] Prescriptions Prescriptions: New cephalexin [cephalexin] 500 mg capsule 500 mg PO TID Qty: 21 0RF No Action donepezil 10 mg tablet 10 mg PO DAILY memantine 10 mg tablet 10 mg PO BID loperamide 2 mg capsule 2 mg PO Q4H PRN (Reason: LOOSE STOOLS) Rx Instructions: administer after each loose stool until symptoms controlled; do not exceed 8 mg per 24 hrs albuterol sulfate [Ventolin HFA] 90 mcg/actuation HFA aerosol inhaler 2 puff IH Q4-6H PRN (Reason: SHORTNESS OF AIR) metoprolol succinate 25 mg tablet extended release 24 hr 12.5 mg PO DAILY Qty: 30 5RF fluoxetine 40 mg capsule 40 mg PO DAILY acetaminophen 500 mg TABLET 500 mg PO NEEDED PRN (Reason: Pain) risperidone 0.5 mg tablet 0.5 mg PO HS lorazepam 0.5 mg tablet 0.5 mg PO .COMPLEX Qty: 120 5RF Rx Instructions: 1 tablet QAM, 2 tablets @ noon & 1 tablet QHS gabapentin 400 mg capsule 400 mg PO TID Qty: 90 5RF tramadol 50 mg tablet 50 mg PO TID PRN (Reason: pain) Qty: 90 2RF multivitamin 1 EACH tablet 1 each PO DAILY atorvastatin 40 MG tablet 40 mg PO DAILY aspirin 81 MG tablet,chewable 81 mg PO DAILY nitrofurantoin monohyd/m-cryst 100 MG capsule 100 mg PO BID bethanechol chloride 10 MG tablet 10 mg PO TID docusate sodium 250 mg capsule 100 mg PO DAILY Referrals Follow up/Referrals: Dom Pineda MD [Primary Care Provider] - See instructions Clinical Impressions Clinical Impression: Fall, Acute UTI (urinary tract infection) Instructions Patient Instructions: DI for Urinary Tract Infection (UTI) Discharge ED Provider: Edwin (ED)Dom Fall HPI General Chief Complaint: Fall Stated Complaint: unwitnessed fall Time Seen by Provider: 02/15/23 06:20 Mode of Arrival: EMS Source of Information: Patient, EMS and Medical Record Limitations: No Limitations Description of Symptoms (Recalled from ER Triage Doc. by RN): about an hour ago the pt was found sitting on her floor unable to get up. pt has since been c/o L knee pain. pt has an abraision to her upper back. pt is a poor historian due to baseline dementia. History of Present Illness HPI Narrative: unwitnessed fall at [facility] complaint: fall Onset (ago): hour(s) Fall from: chair Fall witnessed: no Place fall occurred: halfway/[facility]NF Loss of consciousness: none Prolonged down time: no Context: history of frequent falls Severity: moderate Associated symptoms (after fall): denies Related Data Home Medications Medication Instructions Recorded Confirmed multivitamin 1 each PO DAILY Supplement 01/04/19 12/12/22 bethanechol chloride 10 mg tablet 10 mg PO TID URINARY RETENTION 01/27/19 12/12/22 donepezil 10 mg tablet 10 mg PO DAILY MEMORY 01/02/20 12/12/22 memantine 10 mg tablet 10 mg PO BID MEMORY 01/18/20 12/12/22 atorvastatin 40 mg tablet 40 mg PO DAILY Cholesterol 01/24/20 12/12/22 aspirin 81 mg chewable tablet 81 mg PO DAILY HEART HEALTH 04/07/20 12/12/22 nitrofurantoin 100 mg PO BID . 12/10/21 12/12/22 monohydrate/macrocrystals 100 mg capsule albuterol sulfate 90 mcg/actuation 2 puff inhalation Q4-6H PRN 01/29/22 12/12/22 aerosol inhaler (Ventolin HFA) SHORTNESS OF AIR docusate sodium 250 mg capsule 100 mg PO DAILY STOOL SOFTNER 01/29/22 12/12/22 loperamide 2 mg capsule 2 mg PO Q4H PRN LOOSE STOOLS 01/29/22 12/12/22 acetaminophen 500 mg tablet 500 mg PO NEEDED PRN Pain 09/19/22 12/12/22 fluoxetine 40 mg capsule 40 mg PO DAILY Depression 09/19/22 12/12/22 risperidone 0.5 mg tablet 0.5 mg PO HS behavior 09/19/22 12/12/22 Previous Rx's Medication Instructions Recorded lorazepam 0.5 mg tablet 0.5 mg PO .COMPLEX Anxiety #120 01/03/22 tabs metoprolol succinate 25 mg 12.5 mg PO DAILY High blood 01/29/22 tablet,extended release 24 hr pressure #30 tabs gabapentin 400 mg capsule 400 mg PO TID Pain
[2023-02-15 07:44] LABS: Bacteria,Urine 4+ /lpf; WBC,Urine 20-50 #/hpf (0-3)
[2023-02-15 08:00] VITALS: BP 141/88; PULSE 50; RESP 18; O2SAT 95
--- NOTE | 2023-02-15 08:30 | PC.NURSE ---
Called report to Maliha ely Marianna
[2023-02-15 08:35] VITALS: BP 98/59; PULSE 65; RESP 14; O2SAT 97
--- NOTE | 2023-02-15 08:37 | PC.NURSE ---
Called and spoke to Stephon at [facility] for transport
[2023-02-15 09:00] VITALS: BP 93/56; PULSE 58; RESP 20; O2SAT 97
[2023-02-15 09:51] VITALS: BP 93/56; PULSE 65; RESP 16; TEMP 36.6; O2SAT 97
== END 2023-02-15 09:52 ==
PROVIDERS: Emergency Provider Emergency Medicine; PCP Emergency Medicine
DX: M25.562 Pain in left knee (principal); S20.419A Abrasion of unspecified back wall of thorax, initial encounter; F03.90 Unspecified dementia, unspecified severity, without behavioral disturbance, psychotic disturbance, mood disturbance, and anxiety; I71.40 Abdominal aortic aneurysm, without rupture, unspecified; W19.XXXA Unspecified fall, initial encounter
CPT/HCPCS: 70450; 71045; 72125; 72128; 72131; 72170; 73130; 73562; 74177; 80053; 81001; 84484; 85025; 87086; 87088; 87186; 93005; 99285; J0696; Q9967

== ENCOUNTER → 2023-04-04 19:18 | Outpatient (CLI) | payer MEDICARE, MEDICAID, SELFPAY ==
[2023-04-04 20:09] LABS: Microscopic, Urine URINE MICROSCOPIC (MICROSCOPIC)
[2023-04-04 20:56] LABS: Appearance,Urine CLEAR (Clear); Bilirubin,Urine Negative (Negative); Blood, Urine TRACE-I (Negative); Color,Urine YELLOW (Yellow); Glucose,Urine (UA) Negative (Negative); Ketones,Urine Negative (Negative); Leukocyte Esterase,Urine 3+ (Negative); Nitrate,Urine POSITIVE (Negative); Protein,Urine 1+ (Negative); Urobilinogen,Urine 0.2 EU/dl (0.2)
[2023-04-04 21:26] LABS: PH,Urine >= 9.0 (5.0-8.5)
[2023-04-04 21:37] LABS: Bacteria,Urine 4+ /lpf; RBC,Urine Occasional #/hpf (0-3)
== END ==
PROVIDERS: PCP Emergency Medicine; Visit Provider Emergency Medicine
DX: R31.0 Gross hematuria (principal); B96.4 Proteus (mirabilis) (morganii) as the cause of diseases classified elsewhere
CPT/HCPCS: 81001; 87086; 87088; 87186

== ENCOUNTER 2023-04-29 18:48 | Emergency (ER) | payer MEDICARE, MEDICAID, SELFPAY ==
[2023-04-29] VITALS (8 sets, daily range): BP systolic 120–149; BP diastolic 68–85; PULSE 57–64; RESP 12–22; TEMP 36.6; O2SAT 94–98; BMI 28.2
--- NOTE | 2023-04-29 18:50 | XR_ITS ---
PROCEDURE INFORMATION: Exam: XR Left Shoulder Exam date and time: 04/29/2023 6:56 PM Age: 77 years old Clinical indication: Injury or trauma; Fall; Blunt trauma (contusions or hematomas); Shoulder; Left TECHNIQUE: Imaging protocol: Radiologic exam of the left shoulder. Views: 2 or more views. COMPARISON: CT SHOULDER LT WO CON 01/14/2023 9:38 PM FINDINGS: Bones/joints: Anterior subluxation/dislocation of the humeral head. No identifiable acute fracture. Chronic bony remodeling of the glenoid. Acromioclavicular joint arthrosis. Soft tissues: Normal. IMPRESSION: Anterior shoulder subluxation/dislocation. No identifiable acute fracture.
--- NOTE | 2023-04-29 19:39 | HMH.EDGENADL ---
Discharge Plan Disposition Patient Disposition: Home Health Service Condition: Good Prescriptions Prescriptions: No Action donepezil 10 mg tablet 10 mg PO DAILY memantine 10 mg tablet 10 mg PO BID loperamide 2 mg capsule 2 mg PO Q4H PRN (Reason: LOOSE STOOLS) Rx Instructions: administer after each loose stool until symptoms controlled; do not exceed 8 mg per 24 hrs albuterol sulfate [Ventolin HFA] 90 mcg/actuation HFA aerosol inhaler 2 puff IH Q4-6H PRN (Reason: SHORTNESS OF AIR) metoprolol succinate 25 mg tablet extended release 24 hr 12.5 mg PO DAILY Qty: 30 5RF fluoxetine 40 mg capsule 40 mg PO DAILY acetaminophen 500 mg TABLET 500 mg PO NEEDED PRN (Reason: Pain) risperidone 0.5 mg tablet 0.5 mg PO HS lorazepam 0.5 mg tablet 0.5 mg PO .COMPLEX Qty: 120 5RF Rx Instructions: 1 tablet QAM, 2 tablets @ noon & 1 tablet QHS tramadol 50 mg tablet 50 mg PO TID PRN (Reason: pain) Qty: 90 2RF gabapentin 400 mg capsule 400 mg PO TID Qty: 90 5RF multivitamin 1 EACH tablet 1 each PO DAILY atorvastatin 40 MG tablet 40 mg PO DAILY aspirin 81 MG tablet,chewable 81 mg PO DAILY nitrofurantoin monohyd/m-cryst 100 MG capsule 100 mg PO BID bethanechol chloride 10 MG tablet 10 mg PO TID docusate sodium 250 mg capsule 100 mg PO DAILY Referrals Follow up/Referrals: Dom Pineda MD [Primary Care Provider] - See instructions Clinical Impressions Clinical Impression: Acute pain of left shoulder Discharge ED Provider: Pedro Almodovar General Adult HPI General Chief complaint: Extremity Injury, Upper Stated complaint: fall Time Seen by Provider: 04/29/23 19:33 Mode of Arrival: EMS Source of Information: EMS Limitations: No Limitations Description of Symptoms (Recalled from ER Triage Doc. by RN): Presents to ED after [facility] a [facility]. Obvious deformity to LUE. Patient denies any pain at this time. According to prison patient has a :chronic dislocated left shoulder denies LOC or head injury+PMS History of Present Illness HPI narrative: Patient presents for evaluation of fall out of bed at prison onto right shoulder. Patient denies any head injury, complains of acute on chronic left shoulder pain with, per chart review, history of chronic dislocation. She denies any loss of consciousness, describes mild pain of left shoulder, nonradiating, no previous therapies, denies blood thinner usage. No pain elsewhere, denies any neck pain, denies any back pain, denies any chest pain or palpitations. Patient was in her previous state of health prior to onset of symptoms. Related Data Home Medications Medication Instructions Recorded Confirmed multivitamin 1 each PO DAILY Supplement 01/04/19 04/15/23 bethanechol chloride 10 mg tablet 10 mg PO TID URINARY RETENTION 01/27/19 04/15/23 donepezil 10 mg tablet 10 mg PO DAILY MEMORY 01/02/20 04/15/23 memantine 10 mg tablet 10 mg PO BID MEMORY 01/18/20 04/15/23 atorvastatin 40 mg tablet 40 mg PO DAILY Cholesterol 01/24/20 04/15/23 aspirin 81 mg chewable tablet 81 mg PO DAILY HEART HEALTH 04/07/20 04/15/23 nitrofurantoin 100 mg PO BID . 12/10/21 04/15/23 monohydrate/macrocrystals 100 mg capsule albuterol sulfate 90 mcg/actuation 2 puff inhalation Q4-6H PRN 01/29/22 04/15/23 aerosol inhaler (Ventolin HFA) SHORTNESS OF AIR docusate sodium 250 mg capsule 100 mg PO DAILY STOOL SOFTNER 01/29/22 04/15/23 loperamide 2 mg capsule 2 mg PO Q4H PRN LOOSE STOOLS 01/29/22 04/15/23 acetaminophen 500 mg tablet 500 mg PO NEEDED PRN Pain 09/19/22 04/15/23 fluoxetine 40 mg capsule 40 mg PO DAILY Depression 09/19/22 04/15/23 risperidone 0.5 mg tablet 0.5 mg PO HS behavior 09/19/22 12/12/22 Previous Rx's Medication Instructions Recorded lorazepam 0.5 mg tablet 0.5 mg PO .COMPLEX Anxiety #120 01/03/22 tabs metoprolol succinate 25 m
--- NOTE | 2023-04-29 19:50 | PC.NURSE ---
Rounded on patient; call garces within reach. Patient received fentanyl MD notified
--- NOTE | 2023-04-29 20:06 | PC.NURSE ---
MD attempted to place left shoulder back in place which was unsuccessful
--- NOTE | 2023-04-29 20:07 | PC.NURSE ---
placed on 2L NC post Fentanyl administration. Room air patient was sat'ing 85%. 2L NC patient is now sat'ing at 98%
--- NOTE | 2023-04-29 20:13 | XR_ITS ---
PROCEDURE INFORMATION: Exam: XR Left Humerus Exam date and time: 04/29/2023 8:42 PM Age: 77 years old Clinical indication: Injury or trauma; Fall; Blunt trauma (contusions or hematomas); Elbow; Left; Additional info: Pain after fall TECHNIQUE: Imaging protocol: Radiologic exam of the left humerus. Views: 2 or more views. COMPARISON: CR XR HUMERUS LT 01/05/2023 9:09 PM FINDINGS: Bones/joints: Redemonstration of anteriorly subluxed humeral head. Chronic bony remodeling of the bony glenoid. Unchanged alignment of a prior intercondylar fracture demonstrating partial healing bony bridging. No new acute fracture. Soft tissues: Normal. IMPRESSION: 1. Redemonstration of anteriorly subluxed humeral head. 2. 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
--- NOTE | 2023-04-29 20:15 | XR_ITS ---
PROCEDURE INFORMATION: Exam: XR Left Elbow Exam date and time: 04/29/2023 8:42 PM Age: 77 years old Clinical indication: Injury or trauma; Fall; Blunt trauma (contusions or hematomas); Elbow; Left; Additional info: Pain after fall TECHNIQUE: Imaging protocol: Radiologic exam of the left elbow. Views: 3 or more views. COMPARISON: CR XR ELBOW LT MIN 3V 01/14/2023 7:08 PM FINDINGS: Bones/joints: Unchanged alignment of a prior intercondylar fracture demonstrating partial healing bony bridging. No new acute fracture. No joint effusion. Soft tissues: Normal. IMPRESSION: Unchanged alignment of a prior intracondylar fracture with findings concerning for delayed union. No new fracture.
[2023-04-29 20:19] LABS: Basophils % 0.5 % (0.1-2.0); Eosinophils # 0.5 K/mm3 (0.0-0.4); Eosinophils % 5.9 % (0.1-12.0); Hematocrit 39.7 % (37.0-47.0); Hemoglobin 12.6 g/dL (12.2-16.2); Lymphocytes # 1.9 K/mm3 (0.7-4.5); Lymphocytes % 22.7 % (10-50); Mean Corpuscular HGB Conc 31.6 g/dL (31.8-35.4); Mean Corpuscular Hemoglobin 29.7 pg (27.0-31.2); Mean Corpuscular Volume 93.9 fl (81-99); Mean Platelet Volume 10.8 fl (7.4-10.4); Monocytes # 0.8 K/mm3 (0.1-1.0); Neutrophils # 5.2 K/mm3 (1.8-7.8); Neutrophils % 61.9 % (37.0-80.0); Platelet Count 156 K/mm3 (142-424); Red Blood Count 4.23 M/mm3 (4.20-5.40); Red Cell Distribution Width 14.6 % (11.5-17.5); White Blood Count 8.4 K/mm3 (4.8-10.8)
[2023-04-29 20:25] LABS: Alanine Aminotransferase 21 U/L (12-78); Albumin Level 3.8 g/dl (3.5-5.0); Albumin/Globulin Ratio 1.2 (1.1-1.8); Alkaline Phosphatase 182 U/L (38-126); Anion Gap 12.5 mEq/L (5-15); Aspartate Amino Transferase 29 U/L (14-36); Bilirubin,Total 0.1 mg/dl (0.2-1.3); Blood Urea Nitrogen 35 mg/dl (7-17); Carbon Dioxide 29 mmol/L (22.0-30.0); Chloride 106 mmol/L (98-107); Creatinine Clearance Estimated 49 mL/min (50-200); Estimated Glomerular Filt Rate 44 ml/min (>60); GFR (African American) 53 ML/MIN (>60); Globulin 3.2 g/dL (1.3-3.2); Glucose 90 mg/dl (74-100); Potassium 4.5 mmoL/L (3.5-5.1); Sodium 143 mmol/L (136-145)
--- NOTE | 2023-04-29 21:49 | PC.NURSE ---
spoke with Siobhan from [facility] about patient coming back to facility
--- NOTE | 2023-04-29 21:51 | PC.NURSE ---
[facility] EMS call ed for transfer back to [place]
--- NOTE | 2023-04-29 22:17 | PC.NURSE ---
cleaned patient up and placed patient in new gown with clean sheets with a brief prior to transfer
== END 2023-04-29 22:17 | disposition home health service (06) ==
PROVIDERS: Emergency Provider Emergency Medicine; PCP Emergency Medicine
DX: M25.512 Pain in left shoulder (principal); W06.XXXA Fall from bed, initial encounter; I71.40 Abdominal aortic aneurysm, without rupture, unspecified
CPT/HCPCS: 73030; 73060; 73080; 80053; 85025; 96374; 99285

== ENCOUNTER 2023-05-09 00:48 | Emergency (ER) | payer MEDICARE, MEDICAID, SELFPAY ==
[2023-05-09 00:48] VITALS: BP 137/77; PULSE 66; RESP 16; TEMP 36.5; O2SAT 96; BMI 28.0
[2023-05-09 01:00] VITALS: BP 141/82; PULSE 65; O2SAT 96
--- NOTE | 2023-05-09 01:19 | CT_ITS ---
PROCEDURE INFORMATION: Exam: CT Cervical Spine Without Contrast Exam date and time: 05/09/2023 1:36 AM Age: 77 years old Clinical indication: Injury or trauma; Fall TECHNIQUE: Imaging protocol: Computed tomography of the cervical spine without contrast. Radiation optimization: All CT scans at this facility use at least one of these dose optimization techniques: automated exposure control; mA and/or kV adjustment per patient size (includes targeted exams where dose is matched to clinical indication); or iterative reconstruction. REPORTING DATA: Count of CT and Cardiac NM exams in prior 12 months: This patient has received 19 known CTs and 0 known cardiac nuclear medicine studies in the 12 months prior to the current study. COMPARISON: CT CERVICAL SPINE WO CON 02/15/2023 6:42 AM FINDINGS: Bones/joints: Diffuse cervical spondylosis is noted. Hypertrophic changes of the facet present bilaterally. Discs/Spinal canal/Neural foramina: Narrowing of multiple intervertebral disc spaces are seen. Moderate neural foraminal narrowing is also noted. Lungs: Lung apices are normal. Vasculature: No obvious traumatic injury is seen. Carotid atherosclerosis is present. Soft tissues: Unremarkable. IMPRESSION: 1. No evidence of acute traumatic injury. 2. Diffuse cervical spondylosis. 3. Carotid atherosclerosis is present.
--- NOTE | 2023-05-09 01:19 | XR_ITS ---
PROCEDURE INFORMATION: Exam: XR Pelvis Exam date and time: 05/09/2023 1:23 AM Age: 77 years old Clinical indication: Injury or trauma; Fall TECHNIQUE: Imaging protocol: Radiologic exam of the pelvis. Views: 1 or 2 view. COMPARISON: CR XR HIP RT 2-3V W/PELVIS 09/07/2021 4:32 PM FINDINGS: Bones/joints: Status post bilateral hip arthroplasty. No evidence of dislocation is identified. Degenerative changes of the lumbar spine. Soft tissues: Unremarkable. IMPRESSION: No evidence of fracture or dislocation.
--- NOTE | 2023-05-09 01:19 | CT_ITS ---
PROCEDURE INFORMATION: Exam: CT Head Without Contrast Exam date and time: 05/09/2023 1:34 AM Age: 77 years old Clinical indication: Injury or trauma; Fall TECHNIQUE: Imaging protocol: Computed tomography of the head without contrast. Radiation optimization: All CT scans at this facility use at least one of these dose optimization techniques: automated exposure control; mA and/or kV adjustment per patient size (includes targeted exams where dose is matched to clinical indication); or iterative reconstruction. REPORTING DATA: Count of CT and Cardiac NM exams in prior 12 months: This patient has received 19 known CTs and 0 known cardiac nuclear medicine studies in the 12 months prior to the current study. COMPARISON: CT HEAD/BRAIN WO CON 02/15/2023 6:40 AM FINDINGS: Brain: There is diffuse prominence of the cerebral sulci, cisterns, and ventricles consistent with atrophy. No intra or extra-axial fluid collections are noted. No mass or mass effect is seen. Periventricular white matter hypoattenuation is seen consistent with small vessel chronic ischemic changes. Cerebral ventricles: No ventriculomegaly. Paranasal sinuses: Visualized sinuses are unremarkable. No fluid levels. Mastoid air cells: Visualized mastoid air cells are well aerated. Bones/joints: Unremarkable. No acute fracture. Soft tissues: Unremarkable. IMPRESSION: No acute intracranial abnormality.
--- NOTE | 2023-05-09 01:19 | XR_ITS ---
PROCEDURE INFORMATION: Exam: XR Chest Exam date and time: 05/09/2023 1:23 AM Age: 77 years old Clinical indication: Injury or trauma; Fall TECHNIQUE: Imaging protocol: Radiologic exam of the chest. Views: 1 view. COMPARISON: CR XR CHEST PORTABLE 02/15/2023 6:52 AM FINDINGS: Lungs: The lungs are hyperlucent consistent with COPD. No focal infiltrates. Pleural spaces: Unremarkable. No pleural effusion. No pneumothorax. Heart/Mediastinum: Mild cardiomegaly. Bones/joints: Degenerative changes of the shoulders are present bilaterally not significantly changed from prior.. IMPRESSION: COPD. No acute process identified.
--- NOTE | 2023-05-09 01:22 | HMH.EDGENADL ---
Discharge Plan Disposition Patient Disposition: Xfer Other Condition: Good Prescriptions Prescriptions: New cefadroxil 1 gram tablet 1,000 mg PO DAILY 10 Days Qty: 10 0RF cefadroxil 1 gram tablet 1,000 mg PO DAILY 5 Days Qty: 5 0RF No Action donepezil 10 mg tablet 10 mg PO DAILY memantine 10 mg tablet 10 mg PO BID loperamide 2 mg capsule 2 mg PO Q4H PRN (Reason: LOOSE STOOLS) Rx Instructions: administer after each loose stool until symptoms controlled; do not exceed 8 mg per 24 hrs albuterol sulfate [Ventolin HFA] 90 mcg/actuation HFA aerosol inhaler 2 puff IH Q4-6H PRN (Reason: SHORTNESS OF AIR) metoprolol succinate 25 mg tablet extended release 24 hr 12.5 mg PO DAILY Qty: 30 5RF fluoxetine 40 mg capsule 40 mg PO DAILY acetaminophen 500 mg TABLET 500 mg PO NEEDED PRN (Reason: Pain) risperidone 0.5 mg tablet 0.5 mg PO HS lorazepam 0.5 mg tablet 0.5 mg PO .COMPLEX Qty: 120 5RF Rx Instructions: 1 tablet QAM, 2 tablets @ noon & 1 tablet QHS tramadol 50 mg tablet 50 mg PO TID PRN (Reason: pain) Qty: 90 2RF gabapentin 400 mg capsule 400 mg PO TID Qty: 90 5RF multivitamin 1 EACH tablet 1 each PO DAILY atorvastatin 40 MG tablet 40 mg PO DAILY aspirin 81 MG tablet,chewable 81 mg PO DAILY nitrofurantoin monohyd/m-cryst 100 MG capsule 100 mg PO BID bethanechol chloride 10 MG tablet 10 mg PO TID docusate sodium 250 mg capsule 100 mg PO DAILY Referrals Follow up/Referrals: Provider,Referral, MD [Primary Care Provider] - See instructions Activity Restrictions/Add. Instructions Additional Instructions/Restrictions: Urine was consistent with infection. No evidence of trauma on CT and x-rays. Please take cefadroxil as prescribed for 5 days for treatment of UTI. Clinical Impressions Clinical Impression: Fall, UTI (urinary tract infection) Discharge ED Provider: Jesus Lynch Adult HPI General Chief complaint: Fall Stated complaint: fall Time Seen by Provider: 05/09/23 00:49 Mode of Arrival: EMS Source of Information: EMS Limitations: No Limitations Description of Symptoms (Recalled from ER Triage Doc. by RN): Patient not voicing any complaints at this time. intermediate staff reports unwitnessed fall, no LOC. Patient complains of no pain at this time. Patient has chronic dislocated left shoulder. History of Present Illness HPI narrative: 77-year-old female, assisted resident, history of frequent falls, presents after apparent fall at nursing facility. Patient is sleeping but arousable on exam. She reports no significant pain at this time. She is oriented to person place and situation. She is not sure if she is on blood thinners. She reports that she does not remember the events of the fall. Related Data Home Medications Medication Instructions Recorded Confirmed multivitamin 1 each PO DAILY Supplement 01/04/19 04/15/23 bethanechol chloride 10 mg tablet 10 mg PO TID URINARY RETENTION 01/27/19 04/15/23 donepezil 10 mg tablet 10 mg PO DAILY MEMORY 01/02/20 04/15/23 memantine 10 mg tablet 10 mg PO BID MEMORY 01/18/20 04/15/23 atorvastatin 40 mg tablet 40 mg PO DAILY Cholesterol 01/24/20 04/15/23 aspirin 81 mg chewable tablet 81 mg PO DAILY HEART HEALTH 04/07/20 04/15/23 nitrofurantoin 100 mg PO BID . 12/10/21 04/15/23 monohydrate/macrocrystals 100 mg capsule albuterol sulfate 90 mcg/actuation 2 puff inhalation Q4-6H PRN 01/29/22 04/15/23 aerosol inhaler (Ventolin HFA) SHORTNESS OF AIR docusate sodium 250 mg capsule 100 mg PO DAILY STOOL SOFTNER 01/29/22 04/15/23 loperamide 2 mg capsule 2 mg PO Q4H PRN LOOSE STOOLS 01/29/22 04/15/23 acetaminophen 500 mg tablet 500 mg PO NEEDED PRN Pain 09/19/22 04/15/23 fluoxetine 40 mg capsule 40 mg PO DAILY Depression 09/19/22 04/15/23 risperidone 0.5 mg tablet 0.5 mg PO HS behavior 09/19/22 12/12/22 Previous Rx's
[2023-05-09 01:25] LABS: Basophils # 0.1 K/mm3 (0-0.2); Basophils % 0.7 % (0.1-2.0); Eosinophils # 0.6 K/mm3 (0.0-0.4); Eosinophils % 6.6 % (0.1-12.0); Hematocrit 40.3 % (37.0-47.0); Hemoglobin 12.1 g/dL (12.2-16.2); Lymphocytes # 1.9 K/mm3 (0.7-4.5); Lymphocytes % 22.5 % (10-50); Mean Corpuscular HGB Conc 30.1 g/dL (31.8-35.4); Mean Corpuscular Hemoglobin 28.6 pg (27.0-31.2); Mean Platelet Volume 8.8 fl (7.4-10.4); Monocytes # 0.6 K/mm3 (0.1-1.0); Monocytes % 7.5 % (1.7-9.3); Neutrophils # 5.2 K/mm3 (1.8-7.8); Neutrophils % 62.7 % (37.0-80.0); Platelet Count 190 K/mm3 (142-424); Red Blood Count 4.24 M/mm3 (4.20-5.40); Red Cell Distribution Width 14.8 % (11.5-17.5); White Blood Count 8.3 K/mm3 (4.8-10.8)
[2023-05-09 01:26] LABS: Chloride 107 mmol/L (98-107); Potassium 4.9 mmoL/L (3.5-5.1); Sodium 144 mmol/L (136-145)
[2023-05-09 01:29] LABS: Alanine Aminotransferase 23 U/L (12-78); Albumin Level 3.5 g/dl (3.5-5.0); Albumin/Globulin Ratio 1.1 (1.1-1.8); Alkaline Phosphatase 207 U/L (38-126); Anion Gap 10.9 mEq/L (5-15); Aspartate Amino Transferase 30 U/L (14-36); Bilirubin,Total 0.2 mg/dl (0.2-1.3); Blood Urea Nitrogen 35 mg/dl (7-17); Carbon Dioxide 31 mmol/L (22.0-30.0); Creatinine Clearance Estimated 49 mL/min (50-200); Estimated Glomerular Filt Rate 44 ml/min (>60); GFR (African American) 53 ML/MIN (>60); Globulin 3.1 g/dL (1.3-3.2); Total Protein,Serum 6.6 g/dl (6.3-8.2)
[2023-05-09 01:30] LABS: Calcium 9.6 mg/dl (8.4-10.2); Glucose 103 mg/dl (74-100)
[2023-05-09 02:10] LABS: Microscopic, Urine URINE MICROSCOPIC (MICROSCOPIC)
[2023-05-09 02:11] LABS: Appearance,Urine SL CLOUDY (Clear); Bilirubin,Urine Negative (Negative); Blood, Urine 1+ (Negative); Color,Urine YELLOW (Yellow); Glucose,Urine (UA) Negative (Negative); Ketones,Urine Negative (Negative); Leukocyte Esterase,Urine 2+ (Negative); Nitrate,Urine POSITIVE (Negative); Protein,Urine Negative (Negative); Specific Gravity, Urine 1.015 (1.005-1.030); Urobilinogen,Urine 0.2 EU/dl (0.2)
[2023-05-09 02:22] LABS: Bacteria,Urine 3+ /lpf; RBC,Urine Occasional #/hpf (0-3); Squamous Epithelial Cell,Urine Occasional #/hpf (0-5); WBC,Urine TNTC #/hpf (0-3)
--- NOTE | 2023-05-09 02:38 | PC.NURSE ---
rounded on patient at this time.
[2023-05-09 02:45] VITALS: PULSE 66; O2SAT 97
[2023-05-09 03:00] VITALS: PULSE 65; O2SAT 97
[2023-05-09 03:17] VITALS: BP 138/79; PULSE 63; TEMP 36.3; O2SAT 96
--- NOTE | 2023-05-09 04:00 | PC.NURSE ---
EMS notified of need for transport
[2023-05-09 04:03] VITALS: BP 120/78; PULSE 62; RESP 18; TEMP 36.3; O2SAT 98
--- NOTE | 2023-05-13 16:20 | PC.NURSE ---
reviewed pt's positive urine culture with Dr. Butcher. pt antibiotic switched to Macrobid at this time. Notified YAMINI Walter at [facility] of change in medication
== END 2023-05-09 05:41 | disposition other institution (70) ==
PROVIDERS: Emergency Provider Emergency Medicine
DX: N39.0 Urinary tract infection, site not specified (principal); R29.6 Repeated falls; W19.XXXA Unspecified fall, initial encounter; I71.40 Abdominal aortic aneurysm, without rupture, unspecified
CPT/HCPCS: 70450; 71045; 72125; 72170; 80053; 81001; 85025; 87086; 87088; 87186; 99285

== ENCOUNTER → 2023-07-03 23:37 | Outpatient (CLI) | payer MEDICARE, MEDICAID, SELFPAY ==
[2023-07-03 23:48] LABS: Microscopic, Urine URINE MICROSCOPIC (MICROSCOPIC)
[2023-07-04 00:03] LABS: Appearance,Urine CLOUDY (Clear); Bilirubin,Urine Negative (Negative); Blood, Urine TRACE-I (Negative); Color,Urine YELLOW (Yellow); Glucose,Urine (UA) Negative (Negative); Ketones,Urine TRACE (Negative); Leukocyte Esterase,Urine 2+ (Negative); Nitrate,Urine POSITIVE (Negative); Protein,Urine Negative (Negative); Specific Gravity, Urine 1.025 (1.005-1.030); Urobilinogen,Urine 0.2 EU/dl (0.2)
[2023-07-04 00:29] LABS: Bacteria,Urine 3+ /lpf; RBC,Urine Occasional #/hpf (0-3); Squamous Epithelial Cell,Urine Occasional #/hpf (0-5)
== END ==
PROVIDERS: PCP Emergency Medicine; Visit Provider Emergency Medicine
DX: R30.0 Dysuria (principal); R10.0 Acute abdomen
CPT/HCPCS: 81001; 87086

== ENCOUNTER 2023-07-16 21:47 | Emergency (ER) | payer MEDICARE, MEDICAID, SELFPAY ==
--- NOTE | 2023-07-16 21:59 | HMH.EDGENADL ---
Discharge Plan Disposition Patient Disposition: Home, Self-Care Chief Complaint: Fall Prescriptions Prescriptions: No Action donepezil 10 mg tablet 10 mg PO DAILY memantine 10 mg tablet 10 mg PO BID loperamide 2 mg capsule 2 mg PO Q4H PRN (Reason: LOOSE STOOLS) Rx Instructions: administer after each loose stool until symptoms controlled; do not exceed 8 mg per 24 hrs albuterol sulfate [Ventolin HFA] 90 mcg/actuation HFA aerosol inhaler 2 puff IH Q4-6H PRN (Reason: SHORTNESS OF AIR) metoprolol succinate 25 mg tablet extended release 24 hr 12.5 mg PO DAILY Qty: 30 5RF fluoxetine 40 mg capsule 40 mg PO DAILY acetaminophen 500 mg TABLET 500 mg PO NEEDED PRN (Reason: Pain) risperidone 0.5 mg tablet 0.5 mg PO HS gabapentin 600 mg tablet 600 mg PO BID Qty: 60 2RF tramadol 50 mg tablet 50 mg PO TID PRN (Reason: pain) Qty: 90 2RF lorazepam [Ativan] 1 mg tablet 1 mg PO TID Qty: 90 5RF multivitamin 1 EACH tablet 1 each PO DAILY atorvastatin 40 MG tablet 40 mg PO DAILY aspirin 81 MG tablet,chewable 81 mg PO DAILY nitrofurantoin monohyd/m-cryst 100 MG capsule 100 mg PO BID bethanechol chloride 10 MG tablet 10 mg PO TID docusate sodium 250 mg capsule 100 mg PO DAILY cefadroxil 1 gram tablet 1,000 mg PO DAILY 10 Days Qty: 10 0RF cefadroxil 1 gram tablet 1,000 mg PO DAILY 5 Days Qty: 5 0RF nitrofurantoin monohyd/m-cryst [Macrobid] 100 mg capsule 100 mg PO BID 5 Days Qty: 10 0RF Rx Instructions: must administer with a meal/food Clinical Impressions Clinical Impression: Encounter for medical assessment Discharge ED Provider: Quirino Galloway General Adult HPI General Chief complaint: Fall Stated complaint: fall with tailbone and hip saenz Time Seen by Provider: 07/16/23 21:59 History of Present Illness HPI narrative: Patient is a 77-year-old female with past medical history of multiple comorbidities, advanced dementia oriented only to self who presents to the emergency department after being found down. Patient lives at long-term care facility where her bed is approximately 4 to 5 inches off of the floor, due to her being found off of her bed onto the floor out of protocol they referred her here for continued evaluation. Related Data Home Medications Medication Instructions Recorded Confirmed multivitamin 1 each PO DAILY Supplement 01/04/19 04/15/23 bethanechol chloride 10 mg tablet 10 mg PO TID URINARY RETENTION 01/27/19 04/15/23 donepezil 10 mg tablet 10 mg PO DAILY MEMORY 01/02/20 04/15/23 memantine 10 mg tablet 10 mg PO BID MEMORY 01/18/20 04/15/23 atorvastatin 40 mg tablet 40 mg PO DAILY Cholesterol 01/24/20 04/15/23 aspirin 81 mg chewable tablet 81 mg PO DAILY HEART HEALTH 04/07/20 04/15/23 nitrofurantoin 100 mg PO BID . 12/10/21 04/15/23 monohydrate/macrocrystals 100 mg capsule albuterol sulfate 90 mcg/actuation 2 puff inhalation Q4-6H PRN 01/29/22 04/15/23 aerosol inhaler (Ventolin HFA) SHORTNESS OF AIR docusate sodium 250 mg capsule 100 mg PO DAILY STOOL SOFTNER 01/29/22 04/15/23 loperamide 2 mg capsule 2 mg PO Q4H PRN LOOSE STOOLS 01/29/22 04/15/23 acetaminophen 500 mg tablet 500 mg PO NEEDED PRN Pain 09/19/22 04/15/23 fluoxetine 40 mg capsule 40 mg PO DAILY Depression 09/19/22 04/15/23 risperidone 0.5 mg tablet 0.5 mg PO HS behavior 09/19/22 12/12/22 Previous Rx's Medication Instructions Recorded metoprolol succinate 25 mg 12.5 mg PO DAILY High blood 01/29/22 tablet,extended release 24 hr pressure #30 tabs cefadroxil 1 gram tablet 1,000 mg PO DAILY 10 days #10 tabs 05/09/23 cefadroxil 1 gram tablet 1,000 mg PO DAILY 5 days #5 tabs 05/09/23 nitrofurantoin 100 mg PO BID 5 days #10 caps 05/13/23 monohydrate/macrocrystals 100 mg capsule (Macrobid) gabapentin 600 mg tablet 600 mg PO BID #60 tabs 06/18/23 lorazepam 1 mg tablet (Ativan) 1 mg PO TID #90 tabs
--- NOTE | 2023-07-16 22:32 | PC.NURSE ---
called [facility] for pickup and transfer back to [facility]. spoke with mert espinal-p
[2023-07-16 22:33] VITALS: BP 142/70; PULSE 73; RESP 16; TEMP 36.7; O2SAT 97
== END 2023-07-16 23:01 | disposition home or self-care (01) ==
PROVIDERS: Emergency Provider Emergency Medicine
DX: F03.90 Unspecified dementia, unspecified severity, without behavioral disturbance, psychotic disturbance, mood disturbance, and anxiety (principal); Z04.3 Encounter for examination and observation following other accident; W06.XXXA Fall from bed, initial encounter
CPT/HCPCS: 99282

== ENCOUNTER 2023-07-23 18:51 | Observation (INO) | payer MEDICARE, MEDICAID, SELFPAY ==
[2023-07-23 18:51] VITALS: BP 122/70; PULSE 55; RESP 20; TEMP 34.9; O2SAT 98; BMI 31.1
--- NOTE | 2023-07-23 18:59 | XR_ITS ---
PROCEDURE INFORMATION: Exam: XR Chest Exam date and time: 07/23/2023 7:37 PM Age: 77 years old Clinical indication: Other: AMS; Additional info: Fall TECHNIQUE: Imaging protocol: Radiologic exam of the chest. Views: 1 view. COMPARISON: CR XR CHEST PORTABLE 05/09/2023 1:23 AM FINDINGS: Lungs: Left lower lobe atelectasis versus pneumonia. No consolidation. Pleural spaces: Unremarkable. No pleural effusion. No pneumothorax. Heart/Mediastinum: Unremarkable. No cardiomegaly. Bones/joints: Degenerative changes bilateral shoulders. IMPRESSION: No left lower lobe atelectasis versus pneumonia.
--- NOTE | 2023-07-23 18:59 | CT_ITS ---
PROCEDURE INFORMATION: Exam: CT Head Without Contrast Exam date and time: 07/23/2023 7:34 PM Age: 77 years old Clinical indication: Altered mental status/memory loss; Additional info: AMS TECHNIQUE: Imaging protocol: Computed tomography of the head without contrast. Radiation optimization: All CT scans at this facility use at least one of these dose optimization techniques: automated exposure control; mA and/or kV adjustment per patient size (includes targeted exams where dose is matched to clinical indication); or iterative reconstruction. REPORTING DATA: Count of CT and Cardiac NM exams in prior 12 months: This patient has received 19 known CTs and 0 known cardiac nuclear medicine studies in the 12 months prior to the current study. COMPARISON: CT HEAD/BRAIN WO CON 05/09/2023 1:34 AM FINDINGS: Brain: Atrophy and chronic small vessel ischemic changes. No hemorrhage. No mass effect or midline shift. Right ICA supraclinoid and infra clinoid stent graft. Cerebral ventricles: No ventriculomegaly. Paranasal sinuses: Visualized sinuses are unremarkable. No fluid levels. Mastoid air cells: Visualized mastoid air cells are well aerated. Bones/joints: Unremarkable. No acute fracture. Soft tissues: Unremarkable. IMPRESSION: Chronic changes in the brain but no acute intracranial abnormality.
--- NOTE | 2023-07-23 19:01 | HMH.EDGENADL ---
Discharge Plan Disposition Patient Disposition: Admitted Condition: Fair Chief Complaint: Urogenital-Female Clinical Impressions Clinical Impression: Sepsis Discharge ED Provider: Billie Oswald General Adult HPI General Chief complaint: Urogenital-Female Stated complaint: ams Time Seen by Provider: 07/23/23 18:52 History of Present Illness HPI narrative: Patient has a PMHx significant for AAA under surveillance, DM, HTN, advanced dementia who presents to the ED from longterm for further management of altered mental status. Per EMS report and longterm report, the patient has been lethargic all day long, unresponsive, and has basically been in bed all day long. [facility] staff attempted to get the patient into a wheelchair to get her active, but the patient does remain somnolent and unresponsive in the wheelchair and thus decided call EMS. Patient was recently seen on the and was diagnosed with UTI discharged with Macrobid. On arrival to the ED, the patient was GCS of 11, hypothermic to 94 degrees, and had foul-smelling urine odor from diaper. Related Data Home Medications Medication Instructions Recorded Confirmed multivitamin 1 each PO DAILY Supplement 01/04/19 04/15/23 bethanechol chloride 10 mg tablet 10 mg PO TID URINARY RETENTION 01/27/19 04/15/23 donepezil 10 mg tablet 10 mg PO DAILY MEMORY 01/02/20 04/15/23 memantine 10 mg tablet 10 mg PO BID MEMORY 01/18/20 04/15/23 atorvastatin 40 mg tablet 40 mg PO DAILY Cholesterol 01/24/20 04/15/23 aspirin 81 mg chewable tablet 81 mg PO DAILY HEART HEALTH 04/07/20 04/15/23 nitrofurantoin 100 mg PO BID . 12/10/21 04/15/23 monohydrate/macrocrystals 100 mg capsule albuterol sulfate 90 mcg/actuation 2 puff inhalation Q4-6H PRN 01/29/22 04/15/23 aerosol inhaler (Ventolin HFA) SHORTNESS OF AIR docusate sodium 250 mg capsule 100 mg PO DAILY STOOL SOFTNER 01/29/22 04/15/23 loperamide 2 mg capsule 2 mg PO Q4H PRN LOOSE STOOLS 01/29/22 04/15/23 acetaminophen 500 mg tablet 500 mg PO NEEDED PRN Pain 09/19/22 04/15/23 fluoxetine 40 mg capsule 40 mg PO DAILY Depression 09/19/22 04/15/23 risperidone 0.5 mg tablet 0.5 mg PO HS behavior 09/19/22 12/12/22 Previous Rx's Medication Instructions Recorded metoprolol succinate 25 mg 12.5 mg PO DAILY High blood 01/29/22 tablet,extended release 24 hr pressure #30 tabs cefadroxil 1 gram tablet 1,000 mg PO DAILY 10 days #10 tabs 05/09/23 cefadroxil 1 gram tablet 1,000 mg PO DAILY 5 days #5 tabs 05/09/23 nitrofurantoin 100 mg PO BID 5 days #10 caps 05/13/23 monohydrate/macrocrystals 100 mg capsule (Macrobid) gabapentin 600 mg tablet 600 mg PO BID #60 tabs 06/18/23 lorazepam 1 mg tablet (Ativan) 1 mg PO TID #90 tabs 07/09/23 tramadol 50 mg tablet 50 mg PO TID PRN pain #90 tabs 07/09/23 Allergies Allergy/AdvReac Type Severity Reaction Status Date / Time diphtheria toxoid,fluid Allergy Unknown Unknown Verified 04/15/23 09:35 [DIPHTHERIA TOXOID,FLUID] allergy reaction Penicillins [PENICILLINS] Allergy Unknown Unknown Verified 04/15/23 09:35 allergy reaction Sulfa (Sulfonamide Allergy Unknown Unknown Verified 04/15/23 09:35 Antibiotics) allergy [SULFA (SULFONAMIDE reaction ANTIBIOTICS)] tetanus and diphtheria Allergy Unknown Unknown Verified 04/15/23 09:35 toxoids allergy [TETANUS & DIPHTHERIA reaction TOXOIDS] codeine Allergy Unknown Verified 04/15/23 09:35 allergy reaction morphine Allergy Unknown Verified 04/15/23 09:35 allergy reaction PFSH PFS Disclaimer: The information contained in this section may have been updated after the patient was seen, as this information can be updated by other users. Medical History AAA (abdominal aortic aneurysm) without rupture Adrenal mass, left Diverticulosis Lumbar radicular pain Obesity (BMI 30.0-34.9) Tobacco use Surgical History Histor
[2023-07-23 19:05] LABS: Microscopic, Urine URINE MICROSCOPIC (MICROSCOPIC)
[2023-07-23 19:08] LABS: Appearance,Urine CLEAR (Clear); Bilirubin,Urine Negative (Negative); Blood, Urine 1+ (Negative); Color,Urine YELLOW (Yellow); Glucose,Urine (UA) Negative (Negative); Ketones,Urine Negative (Negative); Leukocyte Esterase,Urine 2+ (Negative); Nitrate,Urine Negative (Negative); Protein,Urine 3+ (Negative)
[2023-07-23 19:12] LABS: WBC,Urine 20-50 #/hpf (0-3)
[2023-07-23 19:13] LABS: Amorphous Sediment,Urine 1+ /lpf; Bacteria,Urine 3+ /lpf; RBC,Urine Occasional #/hpf (0-3); Squamous Epithelial Cell,Urine Occasional #/hpf (0-5)
[2023-07-23 19:24] LABS: Coronavirus 19, PCR Not Detected (NotDetected); Influenza A, PCR Not Detected (NotDetected); Influenza B, PCR Not Detected (NotDetected)
--- NOTE | 2023-07-23 19:26 | PC.NURSE ---
Called lab to collect second set of blood cultures
[2023-07-23 19:28] LABS: VBG Base Excess 0.4 mmol/L (-2.4-2.3); VBG HCO3 27.6 mmol/L (23-30); VBG Oxygen Saturation 66.6 % (50-70); VBG PH 7.25 mmol/L (7.31-7.41); VBG PO2 39.3 mmol/L (28-40); VBG Total CO2 29.6 mmol/L (23-27)
--- NOTE | 2023-07-23 19:30 | PC.NURSE ---
Martinez from the lab called with critical values. Ph-7.25 Co2- 64 Bicarb- 27.6. advised.CR
[2023-07-23 19:33] LABS: Chloride 111 mmol/L (98-107); Sodium 147 mmol/L (136-145)
[2023-07-23 19:36] LABS: Alanine Aminotransferase 41 U/L (12-78); Albumin Level 3.8 g/dl (3.5-5.0); Albumin/Globulin Ratio 1.2 (1.1-1.8); Alkaline Phosphatase 162 U/L (38-126); Aspartate Amino Transferase 66 U/L (14-36); Bilirubin,Total 0.3 mg/dl (0.2-1.3); Blood Urea Nitrogen 39 mg/dl (7-17); Calcium 8.9 mg/dl (8.4-10.2); Carbon Dioxide 31 mmol/L (22.0-30.0); Creatinine Clearance Estimated 49 mL/min (50-200); Estimated Glomerular Filt Rate 40 ml/min (>60); GFR (African American) 48 ML/MIN (>60); Globulin 3.3 g/dL (1.3-3.2); Glucose 120 mg/dl (74-100); Lipase 282 U/L (23-300); Total Protein,Serum 7.1 g/dl (6.3-8.2)
[2023-07-23 19:37] LABS: Lactic Acid 1.6 mmol/L (0.7-2.1)
[2023-07-23 19:47] LABS: Basophils # 0.1 K/mm3 (0-0.2); Basophils % 0.6 % (0.1-2.0); Eosinophils # 0.8 K/mm3 (0.0-0.4); Eosinophils % 8.6 % (0.1-12.0); Hematocrit 39.3 % (37.0-47.0); Hemoglobin 12.3 g/dL (12.2-16.2); Lymphocytes % 20.8 % (10-50); Mean Corpuscular HGB Conc 31.3 g/dL (31.8-35.4); Mean Corpuscular Hemoglobin 30.3 pg (27.0-31.2); Mean Platelet Volume 9.6 fl (7.4-10.4); Monocytes # 0.7 K/mm3 (0.1-1.0); Monocytes % 7.1 % (1.7-9.3); Neutrophils # 6.1 K/mm3 (1.8-7.8); Platelet Count 179 K/mm3 (142-424); Red Blood Count 4.05 M/mm3 (4.20-5.40); Red Cell Distribution Width 14.6 % (11.5-17.5); White Blood Count 9.7 K/mm3 (4.8-10.8)
[2023-07-23 19:50] LABS: Troponin I < 0.01 ng/ml (0.00-0.034)
--- NOTE | 2023-07-23 20:14 | PC.NURSE ---
Spoke to admitting for OBS/Hospitalist/UTI/211 admission
--- NOTE | 2023-07-23 20:34 | EXP.HP ---
History of Present Illness *Admission Date: 07/23/23 *History of present illness: This is a 77yo female with PMHx significant for AAA under surveillance, DM, HTN, advanced dementia, unknown baseline who was brought in by EMS from [facility] for further management of altered mental status. History obatined from ER provider documentation and Per EMS report along with [facility] report since patient are non cooperative and has been lethargic and unresponsive. [facility] staff reported last seen normal yesterday. today they attempted to get the patient into a wheelchair to get her active, but the patient does remain somnolent and unresponsive in the wheelchair and thus decided call EMS. Patient was recently seen on the and was diagnosed with UTI discharged with Macrobid. On arrival to the ED, the patient was GCS of 11, hypothermic to 94 degrees, and had foul-smelling urine odor. Admitted for treatment and management. [facility] Disclaimer: The information contained in this section may have been updated after the patient was seen, as this information can be updated by other users. Medical History AAA (abdominal aortic aneurysm) without rupture Adrenal mass, left Diverticulosis Lumbar radicular pain Obesity (BMI 30.0-34.9) Tobacco use Surgical History History of laparotomy Social History (Updated 07/23/23 @ 22:28 by Radha Martino RN) Smoking Status: Never smoker alcohol intake: never substance use type: denies use current occupational status: disabled Travel in the last 8 weeks: None household members: other housing: assisted living facility current occupational exposures/hazards: No caffeine: Yes Review of Systems Review of Systems Review of systems:: unable to obtain Meds Home Medications and Allergies Home Medications Medication Instructions Recorded Confirmed Type donepezil 10 mg tablet 10 mg PO DAILY Memory 01/02/20 07/23/23 History atorvastatin 40 mg tablet 40 mg PO DAILY Cholesterol 01/24/20 07/23/23 History aspirin 81 mg chewable tablet 81 mg PO DAILY Heart health 04/07/20 07/23/23 History albuterol sulfate 90 mcg/actuation 2 puff inhalation Q6HP PRN 01/29/22 07/24/23 History aerosol inhaler (Ventolin HFA) Shortness Of Breath loperamide 2 mg capsule 2 mg PO Q4HP PRN Diarrhea 01/29/22 07/24/23 History metoprolol succinate 25 mg 12.5 mg PO DAILY High blood 01/29/22 07/23/23 Rx tablet,extended release 24 hr pressure #30 tabs acetaminophen 500 mg tablet 500 mg PO Q4HP PRN Mild Pain 09/19/22 07/24/23 History (Scale Score 1-4) risperidone 0.5 mg tablet 1 mg PO HS Restless Leg(S) 09/19/22 07/24/23 History gabapentin 600 mg tablet 600 mg PO BID #60 tabs 06/18/23 07/23/23 Rx bethanechol chloride 25 mg tablet 25 mg PO TID Urinary Retention 07/23/23 07/24/23 History fluoxetine 40 mg capsule 40 mg PO DAILY Mood 07/23/23 07/24/23 History memantine 28 mg capsule 28 mg PO DAILY Memory 07/23/23 07/24/23 History sprinkle,extended release 24hr cranberry 400 mg capsule 800 mg PO DAILY Supplement 07/24/23 07/24/23 History docusate sodium 100 mg capsule 100 mg PO BID Constipation 07/24/23 07/24/23 History ertapenem 1 gram solution for 1 g IM Q24H 6 days #6 ea 07/24/23 Rx injection lorazepam 1 mg tablet (Ativan) 1 mg PO TID Anxiety 07/24/23 07/23/23 History ondansetron 4 mg disintegrating 4 mg PO Q6HP PRN Nausea And 07/24/23 07/24/23 History tablet Vomiting risperidone 0.5 mg tablet 0.5 mg PO DAILY Mood 07/24/23 07/24/23 History New Prescriptions to Start Prescriptions: Willian Patel Allergies Allergy/AdvReac Type Severity Reaction Status Date / Time diphtheria toxoid,fluid Allergy Unknown Unknown Verified 04/15/23 09:35 [DIPHTHERIA TOXOID,FLUID] allergy reaction Penicillins [PENICILLINS] Allergy Unknown Unknown Verified 04/15/23 09:35 allergy reaction Sulfa (Sulfonamide Allerg
[2023-07-23 20:39] VITALS: BP 97/46; PULSE 55; RESP 18; TEMP 35.4; O2SAT 95
--- NOTE | 2023-07-23 20:39 | PC.NURSE ---
called report to bari kaplan on 2nd floor and answered all questions.
--- NOTE | 2023-07-23 21:33 | PC.NURSE ---
Pt arrived to floor via stretcher @ 7600
[2023-07-23 21:35] VITALS: BP 103/57; PULSE 51; RESP 16; TEMP 35.6; O2SAT 93
[2023-07-23 21:44] VITALS: BP 103/57; PULSE 52; RESP 16; TEMP 37; O2SAT 89; BMI 29.7
--- NOTE | 2023-07-23 21:46 | PC.NURSE ---
AT 2038 CASSANDRA/CHARGE NURSE RECEIVED PHONE REPORT FROM ANAM RN/ED NURSE. 77 YO FEMALE FROM [facility] ESSENTIALLY UNRESPONSIVE IN THE ED. ADMISSION DX: UTI. PATIENT ARRIVED ON THE FLOOR VIA STRETCHER AT 2129.
[2023-07-23 22:16] VITALS: O2SAT 89
[2023-07-23 22:55] LABS: Troponin I < 0.01 ng/ml (0.00-0.034)
[2023-07-24 04:00] VITALS: BMI 29.7
[2023-07-24 05:30] VITALS: BP 99/59; PULSE 52; RESP 16; TEMP 36.4; O2SAT 91
--- NOTE | 2023-07-24 05:37 | PC.NURSE ---
PATIENT MORE RESPONSIVE THAN EARLIER. REQUIRES TURNING Q 2 HRS BY STAFF. OCCASSIONAL SOFT MUMBLING RESPONSE TO QUESTIONS. FSBS THIS AM WAS 91.
[2023-07-24 05:59] LABS: POC Glucose,Bedside 91 (70-110)
[2023-07-24 07:03] LABS: Basophils # 0.1 K/mm3 (0-0.2); Basophils % 0.6 % (0.1-2.0); Eosinophils # 0.9 K/mm3 (0.0-0.4); Eosinophils % 9.9 % (0.1-12.0); Hematocrit 37.1 % (37.0-47.0); Hemoglobin 11.7 g/dL (12.2-16.2); Lymphocytes # 1.6 K/mm3 (0.7-4.5); Lymphocytes % 18.9 % (10-50); Mean Corpuscular HGB Conc 31.5 g/dL (31.8-35.4); Mean Corpuscular Hemoglobin 30.4 pg (27.0-31.2); Mean Corpuscular Volume 96.5 fl (81-99); Mean Platelet Volume 10.5 fl (7.4-10.4); Monocytes # 0.5 K/mm3 (0.1-1.0); Monocytes % 6.3 % (1.7-9.3); Neutrophils # 5.6 K/mm3 (1.8-7.8); Neutrophils % 64.3 % (37.0-80.0); Platelet Count 161 K/mm3 (142-424); Red Blood Count 3.84 M/mm3 (4.20-5.40); Red Cell Distribution Width 14.5 % (11.5-17.5); White Blood Count 8.7 K/mm3 (4.8-10.8)
[2023-07-24 07:07] LABS: Alanine Aminotransferase 34 U/L (12-78); Albumin Level 3.4 g/dl (3.5-5.0); Albumin/Globulin Ratio 1.1 (1.1-1.8); Alkaline Phosphatase 185 U/L (38-126); Anion Gap 7.3 mEq/L (5-15); Aspartate Amino Transferase 55 U/L (14-36); Bilirubin,Total 0.3 mg/dl (0.2-1.3); Blood Urea Nitrogen 32 mg/dl (7-17); Calcium 8.4 mg/dl (8.4-10.2); Carbon Dioxide 26 mmol/L (22.0-30.0); Chloride 114 mmol/L (98-107); Creatinine Clearance Estimated 60 mL/min (50-200); Estimated Glomerular Filt Rate 61 ml/min (>60); GFR (African American) 73 ML/MIN (>60); Glucose 83 mg/dl (74-100); Potassium 4.3 mmoL/L (3.5-5.1); Sodium 143 mmol/L (136-145); Total Protein,Serum 6.4 g/dl (6.3-8.2)
[2023-07-24 07:23] VITALS: BP 109/65; PULSE 54; RESP 18; TEMP 36.4; O2SAT 95
--- NOTE | 2023-07-24 09:16 | P.CONPHA_ITS ---
Pharmacy Intervention Comments: MEDICATION RECONCILIATION COMPLETED ON PATIENT USING MAR FROM ALF. -JEB HOBSON, TAVOND
--- NOTE | 2023-07-24 09:16 | HMH.PHAINT1 ---
Pharmacy Intervention Comments: MEDICATION RECONCILIATION COMPLETED ON PATIENT USING MAR FROM [facility]. -JEB HOBSON, TAVOND
--- NOTE | 2023-07-24 10:06 | CARE MANAGER ---
Addendum entered by Pao Giordano RN 07/24/23 13:21: Zoila aware patient will discharge back to [place] today. Original Note: Patient currently resides at [facility] level of care. Faxed update and spoke with Zoila.
--- NOTE | 2023-07-24 11:37 | EXP.DC.SUM ---
General Admission date:: 07/23/23 Discharge date: 07/24/23 HPI HPI HPI: This is a 77yo female with PMHx significant for AAA under surveillance, DM, HTN, advanced dementia, unknown baseline who was brought in by EMS from [facility] for further management of altered mental status. History obatined from ER provider documentation and Per EMS report along with snf report since patient are non cooperative and has been lethargic and unresponsive. [facility] staff reported last seen normal yesterday. today they attempted to get the patient into a wheelchair to get her active, but the patient does remain somnolent and unresponsive in the wheelchair and thus decided call EMS. Patient was recently seen on the and was diagnosed with UTI discharged with Macrobid. On arrival to the ED, the patient was GCS of 11, hypothermic to 94 degrees, and had foul-smelling urine odor. Admitted for treatment and management. Hospital Course Hospital Course Hospital Course: 77yo female with PMHx significant for AAA under surveillance, DM, HTN, advanced dementia, unknown baseline who was brought in by EMS from [facility] for further management of altered mental status. patient has been under PO treatment with Macrobid since the Jul. today on arrival visible unresponsive, GCS of 11, hypothermic to 94 degrees, and had foul-smelling urine odor. Started on broadspectrum abx with Vanco and cefepime. Culture obtained and pending. Urinalysis was notable for leukocytes and nitrites. Initial VBG was notable for hypercapnic respiratory acidosis with CO2 of 64, pH of 7.25. patient also presented with mild REED. CT of head negative for acute intracraneal process. significant ischemic degeneration. Imaging reviewed along with the CXR. Discussed with ER provider. Agreed for admission. Patient showing an admit by morning. Given previous cultures, antibiotics were transitioned to ertapenem. Given her improvement mentation, appears back to baseline. Tolerating p.o. intake. Stable for discharge back to nursing facility to continue antibiotic course. Problems addressed as follows: -Acute AMS likely secondary to sepsis secondary to UTI: Patient admitted for monitoring overnight. Started on broad-spectrum antibiotics. Urinalysis grossly abnormal. Previous urine cultures with Morganella, Citrobacter, Proteus which were all sensitive to ertapenem. Transition to ertapenem and received first dose on 07/24. Will continue 7-day course with 1 g IM daily. Urine culture still pending at time of discharge. We will continue to monitor and adjust antibiotics if necessary. Patient had improvement in mentation by morning. Tolerating p.o. intake. Stable for discharge back to nursing facility. -REED on CKD: Creatinine improved by morning, BUN 32 and creatinine of 0.9. Recommend repeat CBC and CMP in 1 week. Stable for discharge back to nursing facility Exam Data for Last 24 hours Vital signs and Labs for Last 24 Hours: Temp Pulse Resp BP Pulse Ox O2 Del Method 97.6 F 54 L 18 109/65 L 95 Room Air 07/24/23 07:23 07/24/23 07:23 07/24/23 07:23 07/24/23 07:23 07/24/23 07:23 07/24/23 09:00 Laboratory Results - last 24 hr 07/23/23 18:59: VBG pH 7.25 L, VBG pCO2 64.0 H, VBG pO2 39.3, VBG HCO3 27.6, VBG Total CO2 29.6 H, VBG O2 Saturation 66.6, VBG Base Excess 0.4, SARS-CoV-2 (PCR) Not detected, Influenza A Untype (PCR) Not detected, Influenza Type B (PCR) Not detected 07/23/23 19:00: Urine Color Yellow, Urine Appearance Clear, Urine pH 8.0, Ur Specific Costa 1.020, Urine Protein 3+, Urine Glucose (UA) Negative, Urine Ketones Negative, Urine Blood 1+, Urine Nitrate Negative, Urine Bilirubin Negative, Urine Urobilinogen 1.0, Ur Leukocyte Esterase 2+ A, Urine RBC Occasional, Urine WBC 20-50, Ur Squamous Epith Cells Occasional, Amorphous Sediment 1+, Urine Bacteria 3+ 07/23/23 19:17: WBC 9.7, RBC 4.05 L, Hgb 12.3, Hct 39.3, MCV 97.0, MCH 30.3, MCHC 31.3 L, RDW 14.6
[2023-07-24 12:16] LABS: POC Glucose,Bedside 112 (70-110)
--- NOTE | 2023-07-31 15:56 | PC.NURSE ---
urine culture shows providencia stuartii, pot was given vanc, cefepime, admitted to 2nd and DC with invanc IM. Dr. ROLAND aware, no further action
== END 2023-07-24 15:21 ==
LOC: ER 18:57 → 2ND 20:27
PROVIDERS: Nurse Practitioner Family; Admitting Provider Internal Medicine Adolescent Medicine; Emergency Provider Emergency Medicine; PCP Emergency Medicine; Visit Provider Internal Medicine Adolescent Medicine
DX: G93.41 Metabolic encephalopathy (principal); N39.0 Urinary tract infection, site not specified; N17.9 Acute kidney failure, unspecified; N18.31 Chronic kidney disease, stage 3a; I25.10 Atherosclerotic heart disease of native coronary artery without angina pectoris; I71.40 Abdominal aortic aneurysm, without rupture, unspecified; E78.2 Mixed hyperlipidemia; I12.9 Hypertensive chronic kidney disease with stage 1 through stage 4 chronic kidney disease, or unspecified chronic kidney disease; E11.22 Type 2 diabetes mellitus with diabetic chronic kidney disease; Z79.899 Other long term (current) drug therapy
CPT/HCPCS: 36415; 70450; 71045; 80053; 81001; 82803; 82962; 83605; 83690; 84484; 85025; 87040; 87086; 87636; 99285; G0378; J1335

== ENCOUNTER 2023-08-25 20:27 | Emergency (ER) | payer MEDICARE, MEDICAID, SELFPAY ==
[2023-08-25 20:27] VITALS: BP 153/82; PULSE 54; RESP 16; TEMP 36.6; O2SAT 97; BMI 31.1
--- NOTE | 2023-08-25 20:41 | XR_ITS ---
PROCEDURE INFORMATION: Exam: XR Chest Exam date and time: 08/25/2023 9:29 PM Age: 78 years old Clinical indication: Injury or trauma; Fall; Blunt trauma (contusions or hematomas); Additional info: Fall from bed TECHNIQUE: Imaging protocol: Radiologic exam of the chest. Views: 1 view. COMPARISON: CR XR CHEST PORTABLE 07/23/2023 7:37 PM FINDINGS: Lungs: Stable scarring and reticular opacities throughout both lungs. No airspace disease. Pleural spaces: No pleural effusion. No pneumothorax. Heart/Mediastinum: Cardiac silhouette is normal in size for technique. Vasculature: Tortuous calcified aorta. Bones/joints: Advanced bilateral shoulder arthropathy. No displaced fractures are appreciated but there is limited plain film sensitivity for nondisplaced fractures. IMPRESSION: No displaced fractures are visible, but there is limited plain film sensitivity for nondisplaced fractures. No evidence of pneumothorax.
--- NOTE | 2023-08-25 20:41 | XR_ITS ---
PROCEDURE INFORMATION: Exam: XR Pelvis Exam date and time: 08/25/2023 9:29 PM Age: 78 years old Clinical indication: Injury or trauma; Fall; Blunt trauma (contusions or hematomas); Does not apply; Pelvic region; Additional info: Fall from bed TECHNIQUE: Imaging protocol: Radiologic exam of the pelvis. Views: 1 or 2 view. 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 Bones/joints: Subjective bony demineralization. No displaced fractures are evident. There is moderate lower lumbar degenerative change with probable L5 laminectomy defect. Bilateral sacroiliac osteoarthritis. Soft tissues: Unremarkable. IMPRESSION: No displaced fractures are evident.
--- NOTE | 2023-08-25 20:41 | CT_ITS ---
PROCEDURE INFORMATION: Exam: CT Head Without Contrast Exam date and time: 08/25/2023 9:27 PM Age: 78 years old Clinical indication: Injury or trauma; Fall; Additional info: Fall from bed TECHNIQUE: Imaging protocol: Computed tomography of the head without contrast. Radiation optimization: All CT scans at this facility use at least one of these dose optimization techniques: automated exposure control; mA and/or kV adjustment per patient size (includes targeted exams where dose is matched to clinical indication); or iterative reconstruction. REPORTING DATA: Count of CT and Cardiac NM exams in prior 12 months: This patient has received 20 known CTs and 0 known cardiac nuclear medicine studies in the 12 months prior to the current study. COMPARISON: CT HEAD/BRAIN WO CON 07/23/2023 7:34 PM FINDINGS: Brain: No hemorrhage. Diffuse white matter disease with cerebral volume. No mass effect. Preserved chan-white interfaces. Cerebral ventricles: No ventriculomegaly. Paranasal sinuses: Visualized sinuses are unremarkable. No fluid levels. Mastoid air cells: Visualized mastoid air cells are well aerated. Bones/joints: Hyperostosis frontalis interna. Soft tissues: Left frontal scalp hematoma. Vasculature: Stented right carotid artery siphon. IMPRESSION: 1. Left frontal scalp hematoma. 2. No evidence of acute intracranial hemorrhage, mass effect, or edema. Greater than expected involutional change for age.
--- NOTE | 2023-08-25 20:41 | CT_ITS ---
PROCEDURE INFORMATION: Exam: CT Cervical Spine Without Contrast Exam date and time: 08/25/2023 9:29 PM Age: 78 years old Clinical indication: Injury or trauma; Fall; Additional info: Fall from bed TECHNIQUE: Imaging protocol: Computed tomography of the cervical spine without contrast. Radiation optimization: All CT scans at this facility use at least one of these dose optimization techniques: automated exposure control; mA and/or kV adjustment per patient size (includes targeted exams where dose is matched to clinical indication); or iterative reconstruction. REPORTING DATA: Count of CT and Cardiac NM exams in prior 12 months: This patient has received 20 known CTs and 0 known cardiac nuclear medicine studies in the 12 months prior to the current study. COMPARISON: CT CERVICAL SPINE WO CON 05/09/2023 1:36 AM FINDINGS: Bones/joints: No evidence of acute cervical spine fracture or traumatic malalignment. Moderate degenerative disc and facet disease is noted throughout the cervical spine. There is mild left neural foraminal stenosis at C4-C5. Spinal canal and neural foramina appear adequate otherwise. Upper thoracic levoscoliosis. Pharynx: Normal fossa of Rosenmuller. Normal tonsillar pillars. Larynx: Normal epiglottis. Symmetric vocal folds. Lungs: Clear lung apices. Thyroid: Homogeneous thyroid. Vasculature: Moderate calcific plaque noted at the aortic arch. Soft tissues: Unremarkable. IMPRESSION: No evidence of acute cervical spine fracture or malalignment. Adequate spinal canal.
[2023-08-25 21:01] VITALS: BP 138/75; PULSE 55; O2SAT 96
--- NOTE | 2023-08-25 21:32 | PC.NURSE ---
Lac kit and lidocaine at bedside
[2023-08-25 22:00] VITALS: BP 157/77; PULSE 55; O2SAT 95
--- NOTE | 2023-08-25 22:03 | PC.NURSE ---
Cleaned laceration. Damp 4x4 placed back on patient's head.
[2023-08-25 22:31] VITALS: BP 157/64; PULSE 57; RESP 16; O2SAT 97
[2023-08-25 23:00] VITALS: BP 149/72; PULSE 57; RESP 15; O2SAT 97
--- NOTE | 2023-08-25 23:22 | HMH.EDGENADL ---
Discharge Plan Disposition Chief Complaint: Fall Prescriptions Prescriptions: No Action donepezil 10 mg tablet 10 mg PO DAILY albuterol sulfate [Ventolin HFA] 90 mcg/actuation HFA aerosol inhaler 2 puff IH Q6HP PRN (Reason: Shortness Of Breath) metoprolol succinate 25 mg tablet extended release 24 hr 12.5 mg PO DAILY Qty: 30 5RF gabapentin 600 mg tablet 600 mg PO BID Qty: 60 2RF acetaminophen 500 mg tablet 500 mg PO Q4HP PRN (Reason: Mild Pain (Scale Score 1-4)) Gaviscon 95-358 mg/15 mL suspension 30 ml PO .q4hrs PRN loperamide 2 mg capsule 2 mg PO QID PRN (Reason: Diarrhea) Rx Instructions: administer after each loose stool until symptoms controlled; do not exceed 8 mg per 24 hrs Robafen DM 5-50 mg/5 mL liquid 10 ml PO Q6H PRN (Reason: cough/congestion) acetaminophen [Acetaminophen Extra Strength] 500 mg tablet 500 mg PO TID cranberry extract 425 mg capsule 425 mg PO DAILY Rx Instructions: administer with a meal nitrofurantoin macrocrystal 50 mg capsule 50 mg PO DAILY Rx Instructions: must administer with a meal/food risperidone 0.5 mg tablet 0.5 mg PO QAM risperidone 0.5 mg tablet 0.5 mg PO HS multivitamin Tablet 1 tab PO DAILY atorvastatin 40 MG tablet 40 mg PO DAILY aspirin 81 MG tablet,chewable 81 mg PO DAILY fluoxetine 40 mg capsule 40 mg PO DAILY bethanechol chloride 25 mg tablet 25 mg PO TID memantine 28 mg capsule,sprinkle,ER 24hr 28 mg PO DAILY docusate sodium 100 mg Capsule 100 mg PO BID ondansetron 4 mg Tablet,Disintegrating 4 mg PO Q6HP PRN (Reason: Nausea And Vomiting) lorazepam [Ativan] 1 mg tablet 1 mg PO TID Referrals Follow up/Referrals: Provider,Referral, MD [Primary Care Provider] - See instructions Discharge ED Provider: Stacy Butcher General Adult HPI General Chief complaint: Fall Stated complaint: stroke symptoms Time Seen by Provider: 08/25/23 20:40 Mode of Arrival: Wheelchair Source of Information: EMS Limitations: Physical Limitations Description of Symptoms (Recalled from ER Triage Doc. by RN): Pt brought in by EMS from [facility] after taking a fall this evening from her wheelchair. Pt suffered a laceration to her left forehead. Pt has hx of dementia and AMS. pt is alert to self at this time. Pupils equal and reactive. No blood thinners, daily aspirin. History of Present Illness HPI narrative: This patient is a 78-year-old female with history of severe dementia, hypertension, hyperlipidemia, CAD, PAD, aortic insufficiency presented to the emergency department for evaluation with concern for a fall from her wheelchair that happened just prior to arrival. No loss of consciousness noted. Patient is on aspirin and medical record review but I do not appreciate any anticoagulation. Patient does not contribute to history at this time, as she is somnolent and has h/o dementia. She will respond to repetitive stimuli and state her name, but is otherwise not oriented. Related Data Home Medications Medication Instructions Recorded Confirmed donepezil 10 mg tablet 10 mg PO DAILY Memory 01/02/20 07/23/23 atorvastatin 40 mg tablet 40 mg PO DAILY Cholesterol 01/24/20 07/23/23 aspirin 81 mg chewable tablet 81 mg PO DAILY Heart health 04/07/20 07/23/23 albuterol sulfate 90 mcg/actuation 2 puff inhalation Q6HP PRN 01/29/22 07/24/23 aerosol inhaler (Ventolin HFA) Shortness Of Breath bethanechol chloride 25 mg tablet 25 mg PO TID Urinary Retention 07/23/23 07/24/23 fluoxetine 40 mg capsule 40 mg PO DAILY Mood 07/23/23 07/24/23 memantine 28 mg capsule 28 mg PO DAILY Memory 07/23/23 07/24/23 sprinkle,extended release 24hr docusate sodium 100 mg capsule 100 mg PO BID Constipation 07/24/23 07/24/23 lorazepam 1 mg tablet (Ativan) 1 mg PO TID Anxiety 07/24/23 07/23/23 ondansetron 4 mg disintegrating 4 mg PO Q6HP PRN Nausea And 11
[2023-08-25 23:30] VITALS: BP 147/85; PULSE 57; RESP 15; O2SAT 97
--- NOTE | 2023-08-25 23:30 | PC.NURSE ---
I spoke with Doris the nurse at [facility] to clarify pts baseline mental status. I was told that the pt is only alert to self and many times thinks she is 9 years old waiting for a bus and her parents. Pt intermittently is hard to arouse.
--- NOTE | 2023-08-25 23:59 | PC.NURSE ---
EMS notified of need for transport
[2023-08-26] VITALS: BP 155/86; PULSE 64; RESP 16; O2SAT 97
--- NOTE | 2023-08-26 00:02 | PC.NURSE ---
Report called to [facility] to Siobhan [facility], EMS in route to transport pt back to her home
[2023-08-26 00:46] VITALS: BP 150/77; PULSE 60; RESP 18; TEMP 36.8
== END 2023-08-26 02:27 ==
PROVIDERS: Emergency Provider Emergency Medicine; PCP Internal Medicine
DX: R40.0 Somnolence (principal); F03.90 Unspecified dementia, unspecified severity, without behavioral disturbance, psychotic disturbance, mood disturbance, and anxiety; I10 Essential (primary) hypertension; E78.5 Hyperlipidemia, unspecified; I25.10 Atherosclerotic heart disease of native coronary artery without angina pectoris; I73.9 Peripheral vascular disease, unspecified; W18.30XA Fall on same level, unspecified, initial encounter; I71.40 Abdominal aortic aneurysm, without rupture, unspecified; S01.81XA Laceration without foreign body of other part of head, initial encounter
CPT/HCPCS: 12013; 70450; 71045; 72125; 72170; 99285

== ENCOUNTER 2023-08-28 21:01 | Emergency (ER) | payer MEDICARE, MEDICAID, SELFPAY ==
[2023-08-28 20:59] VITALS: BP 108/58; PULSE 71; RESP 16; TEMP 36.8; O2SAT 95; BMI 29.0
[2023-08-28 21:00] VITALS: BP 115/51; PULSE 65; O2SAT 96
--- NOTE | 2023-08-28 21:01 | CT_ITS ---
PROCEDURE INFORMATION: Exam: CT Head Without Contrast Exam date and time: 08/28/2023 9:14 PM Age: 78 years old Clinical indication: Injury or trauma; Fall; Blunt trauma (contusions or hematomas); Additional info: Unwitnessed fall TECHNIQUE: Imaging protocol: Computed tomography of the head without contrast. Total images: 277 Radiation optimization: All CT scans at this facility use at least one of these dose optimization techniques: automated exposure control; mA and/or kV adjustment per patient size (includes targeted exams where dose is matched to clinical indication); or iterative reconstruction. REPORTING DATA: Count of CT and Cardiac NM exams in prior 12 months: This patient has received 22 known CTs and 0 known cardiac nuclear medicine studies in the 12 months prior to the current study. COMPARISON: CT HEAD/BRAIN WO CON 08/25/2023 9:27 PM FINDINGS: Brain: No acute intracranial hemorrhage, midline shift, or mass. Mild to moderate cortical and cerebellar atrophy. Moderate periventricular and scattered subcortical white matter hypodensity compatible with remote small vessel ischemic change. Lal-white interface is maintained. Basilar cisterns are preserved. 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 Remote ischemic changes central karen. Cerebral ventricles: No ventriculomegaly. Paranasal sinuses: Minor mucosal thickening bilateral maxillary sinuses and ethmoid air cells. No air-fluid levels. Mastoid air cells: Visualized mastoid air cells are well aerated. Orbital cavities: Status post bilateral orbital lens replacement. Bones/joints: Osteopenia with hyperostosis of the frontal calvarium. Soft tissues: Left frontal scalp hematoma similar prior exam. Vasculature: Status post right intracranial internal carotid artery stent. Stable ectasia of the right middle cerebral artery. IMPRESSION: 1. No acute intracranial process. 2. Stable chronic findings. 3. Similar left frontal scalp hematoma. 4. Overall, no significant change from August 25, 2023.
--- NOTE | 2023-08-28 21:01 | XR_ITS ---
PROCEDURE INFORMATION: Exam: XR Chest Exam date and time: 08/28/2023 9:18 PM Age: 78 years old Clinical indication: Injury or trauma; Fall; Blunt trauma (contusions or hematomas); Additional info: Unwitnessed fall TECHNIQUE: Imaging protocol: Radiologic exam of the chest. Views: 1 view. COMPARISON: CR XR CHEST PORTABLE 08/25/2023 9:29 PM FINDINGS: Lungs: Unremarkable. No consolidation. Pleural spaces: Unremarkable. No pleural effusion. No pneumothorax. Heart/Mediastinum: Stable mediastinal prominence compatible with aortic tortuosity and/or ectasia. Bones/joints: Moderate degenerative changes of the spine and shoulders. IMPRESSION: No acute interval change. Stable chronic findings as noted.
--- NOTE | 2023-08-28 21:01 | CT_ITS ---
PROCEDURE INFORMATION: Exam: CT Cervical Spine Without Contrast Exam date and time: 08/28/2023 9:14 PM Age: 78 years old Clinical indication: Injury or trauma; Fall; Blunt trauma; Additional info: Unwitnessed fall TECHNIQUE: Imaging protocol: Computed tomography of the cervical spine without contrast. Total images: 546 Radiation optimization: All CT scans at this facility use at least one of these dose optimization techniques: automated exposure control; mA and/or kV adjustment per patient size (includes targeted exams where dose is matched to clinical indication); or iterative reconstruction. REPORTING DATA: Count of CT and Cardiac NM exams in prior 12 months: This patient has received 22 known CTs and 0 known cardiac nuclear medicine studies in the 12 months prior to the current study. COMPARISON: CT CERVICAL SPINE WO CON 08/25/2023 9:29 PM FINDINGS: Bones/joints: Osteopenia. Straightened cervical lordosis with broad-based rotary dextrocurvature. Vertebral body height is maintained. Stable minor anterolisthesis C7-T1. Base of the dens and the C1 and C2 articulations are preserved with moderate degenerative arthropathy and mild chondrocalcinosis. The cervicooccipital junction is intact. Facet joints are appropriately aligned with moderate degenerative facet joint spondylosis throughout. Posterior elements are intact. Severe degenerative disc disease throughout all cervical levels. Multilevel posterior projecting disc osteophyte complex. Limited assessment spinal canal contents secondary to attenuation artifact. No concerning bone lesions. Prevertebral and retropharyngeal spaces: No prevertebral soft tissue swelling. Lungs: Lung apices are clear. Thyroid: 17 mm left thyroid nodule with peripheral calcification. Atrophic thyroid gland. Vasculature: Mild calcifications bilateral carotid and vertebral arteries. Soft tissues: Unremarkable soft tissues of the neck. IMPRESSION: 1. No acute cervical fracture or traumatic subluxation. 2. Straightened cervical lordosis with broad-based rotary dextrocurvature from position or muscle spasm/torticollis. 3. Severe degenerative changes 4. Stable anterolisthesis C7-T1 most likely degenerative 5. Stable left thyroid nodule. Consider follow-up nonemergent ultrasound if not previously assessed. COMMENTS: Consistent with the [employer]'s Incidental Findings Committee white paper (J Am Stewart Radiol 2015): In patients aged 35 years and older with an incidental thyroid nodule equal to or greater than 1.[address], MRI or extrathyroidal US, further evaluation with dedicated thyroid US is recommended for patients with normal life expectancy and without comorbidities. For smaller nodules without suspicious features, no further evaluation or follow up is recommended.
--- NOTE | 2023-08-28 21:01 | XR_ITS ---
PROCEDURE INFORMATION: Exam: XR Left Humerus Exam date and time: 08/28/2023 9:18 PM Age: 78 years old Clinical indication: Injury or trauma; Fall; Blunt trauma (contusions or hematomas); Arm, upper; Left; Additional info: Unwitnessed fall TECHNIQUE: Imaging protocol: Radiologic exam of the left humerus. Views: 2 or more views. COMPARISON: CR XR HUMERUS LT 04/29/2023 8:42 PM FINDINGS: Bones/joints: Stable anterior dislocation of the left humeral head. Ununited intercondylar fracture of the distal left humerus again noted. No acute fracture evident. Soft tissues: Normal. IMPRESSION: No definite acute fracture. Chronic appearing intercondylar fracture of the distal humerus and glenohumeral dislocation.
--- NOTE | 2023-08-28 21:01 | XR_ITS ---
PROCEDURE INFORMATION: Exam: XR Pelvis Exam date and time: 08/28/2023 9:18 PM Age: 78 years old Clinical indication: Injury or trauma; Fall; Blunt trauma (contusions or hematomas); Bilateral; Pelvic region; Additional info: Unwitnessed fall TECHNIQUE: Imaging protocol: Radiologic exam of the pelvis. Views: 1 or 2 view. COMPARISON: CR XR PELVIS 1-2V 08/25/2023 9:29 PM FINDINGS: Bones/joints: Bilateral hip prostheses. No evidence of hardware failure or loosening. Moderate degenerative changes in the lumbar spine. Protrusio deformity of the bilateral acetabula. No acute fracture. Soft tissues: Unremarkable. IMPRESSION: Stable chronic findings. No acute fracture evident.
--- NOTE | 2023-08-28 21:07 | ED_ITS ---
Discharge Plan Disposition Patient Disposition: Home, Self-Care Prescriptions Prescriptions: No Action donepezil 10 mg tablet 10 mg PO DAILY albuterol sulfate [Ventolin HFA] 90 mcg/actuation HFA aerosol inhaler 2 puff IH Q6HP PRN (Reason: Shortness Of Breath) metoprolol succinate 25 mg tablet extended release 24 hr 12.5 mg PO DAILY Qty: 30 5RF gabapentin 600 mg tablet 600 mg PO BID Qty: 60 2RF acetaminophen 500 mg tablet 500 mg PO Q4HP PRN (Reason: Mild Pain (Scale Score 1-4)) Gaviscon 95-358 mg/15 mL suspension 30 ml PO .q4hrs PRN loperamide 2 mg capsule 2 mg PO QID PRN (Reason: Diarrhea) Rx Instructions: administer after each loose stool until symptoms controlled; do not exceed 8 mg per 24 hrs Robafen DM 5-50 mg/5 mL liquid 10 ml PO Q6H PRN (Reason: cough/congestion) acetaminophen [Acetaminophen Extra Strength] 500 mg tablet 500 mg PO TID cranberry extract 425 mg capsule 425 mg PO DAILY Rx Instructions: administer with a meal nitrofurantoin macrocrystal 50 mg capsule 50 mg PO DAILY Rx Instructions: must administer with a meal/food risperidone 0.5 mg tablet 0.5 mg PO QAM risperidone 0.5 mg tablet 0.5 mg PO HS multivitamin Tablet 1 tab PO DAILY atorvastatin 40 MG tablet 40 mg PO DAILY aspirin 81 MG tablet,chewable 81 mg PO DAILY fluoxetine 40 mg capsule 40 mg PO DAILY bethanechol chloride 25 mg tablet 25 mg PO TID memantine 28 mg capsule,sprinkle,ER 24hr 28 mg PO DAILY docusate sodium 100 mg Capsule 100 mg PO BID ondansetron 4 mg Tablet,Disintegrating 4 mg PO Q6HP PRN (Reason: Nausea And Vomiting) lorazepam [Ativan] 1 mg tablet 1 mg PO TID Referrals Follow up/Referrals: Jamil Saez DO [Staff Physician] - See instructions Activity Restrictions/Add. Instructions Additional Instructions/Restrictions: No acute traumatic injury noted. 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 Please follow-up with our orthopedic surgeon regarding these chronic abnormalities. Clinical Impressions Clinical Impression: Falls, Bruise of face, Superficial bruising of chest wall, Anterior subluxation of left shoulder, Closed fracture of humerus with nonunion Discharge ED Provider: Phyllis Rg General Adult HPI General Chief complaint: Fall Stated complaint: fall Time Seen by Provider: 08/28/23 21:01 Mode of Arrival: EMS Limitations: advanced dementia Description of Symptoms (Recalled from ER Triage Doc. by RN): [facility], pt took fall from her wheelchair. Fall was unwitnessed. Pt c omplains of aching all over body. Small abrasion to right calf, old bruising from laceration to forehead 3 days ago. History of Present Illness HPI narrative: Patient is a 78-year-old female who is a regular visitor to our emergency department for frequent falls presents today with another unwitnessed fall. She was found on the left side of her body. She has some chronic bruising on her face chest from old falls. She also has a history of a distal humerus fracture in March of this year and [facility] that she may have [facility] onto that left side where she had a previous injury. Patient is unable to provide any other significant history. She denies any pain to us. History is limited secondary to her mental status which according to the team here who knows her is at her baseline. Related Data Home Medications Medication Instructions Recorded Confirmed donepezil 10 mg tablet 10 mg PO DAILY Memory 01/02/20 07/23/23 atorvastatin 40 mg tablet 40 mg PO DAILY Cholesterol 01/24/20 07/23/23 aspirin 81 mg chewable tablet 81 mg PO DAILY Heart health 04/07/20 07/23/23 albuterol sulfate 90 mcg/actuation 2 puff inhalation Q6HP PRN 01/29/22 07/24/23 aerosol inhaler (Ventolin HFA) Shortness Of Breath bethanechol chloride 25 mg tablet 25 mg PO TID Urinary Retention 07/23/23 07/24/23 fluoxetine 40 mg capsule 40 mg PO DAILY Mood 07/23/23 07/24/23 memantine 28 mg capsule 28 mg PO DAILY Memory 07/23/23 07/24/23 sprinkle,extended release 24hr docusate sodium 100 mg capsule 100 mg PO BID Constipation 07/24/23 07/24/23 lorazepam 1 mg tablet (Ativan) 1 mg PO TID Anxiety 07/24/23 07/23/23 ondansetron 4 mg disintegrating 4 mg PO Q6HP PRN Nausea And 07/24/23 07/24/23 tablet Vomiting acetaminophen 500 mg tablet 500 mg PO Q4HP PRN Mild Pain 08/06/23 (Scale Score 1-4) acetaminophen 500 mg tablet 500 mg PO TID 08/06/23 (Acetaminophen Extra Strength) aluminum hydrox-magnesium carb 95 30 ml PO .q4hrs PRN 08/06/23 mg-358 mg/15 mL oral suspension (Gaviscon) cranberry extract 425 mg capsule 425 mg PO DAILY 08/06/23 dextromethorphan 5 mg-guaifenesin 10 ml PO Q6H PRN cough/congestion 08/06/23 50 mg/5 mL oral liquid (Robafen DM) loperamide 2 mg capsule 2 mg PO QID PRN Diarrhea 08/06/23 multivitamin 1 tab PO DAILY 08/06/23 nitrofurantoin macrocrystal 50 mg 50 mg PO DAILY 08/06/23 capsule risperidone 0.5 mg tablet 0.5 mg PO HS 08/06/23 risperidone 0.5 mg tablet 0.5 mg PO QAM Mood 08/06/23 Previous Rx's Medication Instructions Recorded metoprolol succinate 25 mg 12.5 mg PO DAILY High blood 01/29/22 tablet,extended release 24 hr pressure #30 tabs gabapentin 600 mg tablet 600 mg PO BID #60 tabs 06/18/23 Allergies Allergy/AdvReac Type Severity Reaction Status Date / Time diphtheria toxoid,fluid Allergy Unknown Unknown Verified 04/15/23 09:35 [DIPHTHERIA TOXOID,FLUID] allergy reaction Penicillins [PENICILLINS] Allergy Unknown Unknown Verified 04/15/23 09:35 allergy reaction Sulfa (Sulfonamide Allergy Unknown Unknown Verified 04/15/23 09:35 Antibiotics) allergy [SULFA (SULFONAMIDE reaction ANTIBIOTICS)] tetanus and diphtheria Allergy Unknown Unknown Verified 04/15/23 09:35 toxoids allergy [TETANUS & DIPHTHERIA reaction TOXOIDS] codeine Allergy Unknown Verified 04/15/23 09:35 allergy reaction morphine Allergy Unknown Verified 04/15/23 09:35 allergy reaction PFSH PFSH Disclaimer: The information contained in this section may have been updated after the patient was seen, as this information can be updated by other users. Medical History AAA (abdominal aortic aneurysm) without rupture Adrenal mass, left Anxiety disorder, unspecified Bilateral primary osteoarthritis of hip Bipolar disorder, current episode mixed, unspecified Cerebral aneurysm, nonruptured Dementia in other diseases classified elsewhere, unspecified severity, with other behavioral disturbance Diverticulosis Lumbar radicular pain Obesity (BMI 30.0-34.9) Other dislocation of left shoulder joint, initial encounter Pathological fracture, left shoulder, initial encounter for fracture Tobacco use Vitamin B12 deficiency anemia, unspecified Surgical History History of laparotomy Social History Smoking Status: Unknown if ever smoked alcohol intake: never substance use type: denies use current occupational status: disabled Travel in the last 8 weeks: None household members: other housing: assisted living facility current occupational exposures/hazards: No caffeine: Yes ROS Obtained: Yes All systems reviewed & no additional complaints except as documented Physical Exam General General appearance: alert Head Head exam: atraumatic (Extensive bruising around the left periorbital region and left side of the face appears to be old ecchymosis) Neck Neck exam: Absent tenderness Chest Chest inspection: Present normal inspection and other (Old ecchymosis in the middle aspect of central aspect of the chest); Absent tenderness Respiratory Respiratory exam: Present normal lung sounds bilaterally; Absent respiratory distress Cardiovascular Cardiovascular exam: Present regular rate and normal rhythm Abdominal Exam Abdominal exam: Present soft; Absent distention Extremities Exam Extremities exam: Present other (Full range of motion no evidence of any soft tissue deformities or pain with palpation throughout all long bones) Neurological Exam Neurological exam: Present alert Medical Decision Making Nico Inquiry Pt receiving controlled substance: No Vital Signs: 08/28/23 20:59 08/28/23 21:00 Temperature 98.2 F Temperature Source Oral Pulse Rate 65 Pulse Rate [Left] 71 Respiratory Rate 16 Blood Pressure 115/51 L Blood Pressure [Right Arm] 108/58 L Blood Pressure Mean [Right Arm] 74 Blood Pressure Source [Right Arm] Automatic Cuff Blood Pressure Position [Right Arm] Supine 02 Sat by Pulse Oximetry 95 96 Oxygen Delivery Method Nasal Cannula Room Air Oxygen Flow Rate (LPM) 2 Orders (Tests/Meds): ORDERS Category Date Time Status CT cervical spine wo con Stat Cat Scan 08/28/23 21:[address] head/brain wo con Stat Cat Scan 08/28/23 21:01 Completed Chest XR AP view [XR chest AP] Stat Exams 08/28/23 21:01 Completed Humerus XR left [XR humerus LT] Stat Exams 08/28/23 21:01 Completed XR pelvis 1-2V Stat Exams 08/28/23 21:01 Completed Medical Decision Narrative: 78-year-old female who was found onto her left side with [facility] presents to the emergency department. She is unable to provide good history given her mental status which is at her baseline. She has obvious evidence of ecchymosis from recent falls is tough to tell what is acute and what not at this point. She denies any pain has no tenderness on any of my exam. Will get a left humerus x-ray chest and pelvis x-ray CT scan of the head and cervical spine. CT scans performed of the patient's head and cervical spine x-rays performed of the patient's chest left humerus and pelvis. I presented with the patient CT scan of the head and cervical spine do not see any acute abnormalities no intracranial hemorrhaging no fractures dislocation of cervical spine etc. Regarding the patient's chest x-ray there is an anterior subluxed left humeral head no other acute abnormality noted on chest x-ray. Pelvis x-ray no acute fractures or dislocations noted bilateral hip prosthesis appear to be intact. Regarding the left humerus there is a chronic nonunion fracture of the distal humerus on the left side and the left anterior subluxation which appears to be dislocated however this is the same radiographic appearance that has been for months on this left shoulder. There are CT scans in the past demonstrating that this is actually anterior subluxation not true dislocation this is been treated nonoperatively and appears the same as it has for several months will not attempt a reduction in the emergency department for that reason. Awaiting radiology reads. Reassessment 10:11 PM radiology reads consistent with my above reads. Specifically the left shoulder left humerus are chronic findings as stated above. No emergent intervention needed. Orthopedic referral has been placed for the nonunion and the chronically subluxated left shoulder. Critical Care Critical Care Time Critical Care Time: No
--- NOTE | 2023-08-28 22:11 | PC.NURSE ---
Spoke to Jacklyn with EMS to advise pt is ready for tx back to [place]. She advised other truck is still at so it will be a few hours.
--- NOTE | 2023-08-28 22:20 | PC.NURSE ---
called report to Siobhan at [facility]
[2023-08-28 23:14] VITALS: BP 115/51; PULSE 65; RESP 16; TEMP 36.6; O2SAT 96
== END 2023-08-28 23:16 | disposition home or self-care (01) ==
PROVIDERS: Emergency Provider Student in an Organized Health Care Education/Training Program; PCP Internal Medicine
DX: S43.015A Anterior dislocation of left humerus, initial encounter (principal); S20.219A Contusion of unspecified front wall of thorax, initial encounter; S00.12XA Contusion of left eyelid and periocular area, initial encounter; V00.811A Fall from moving wheelchair (powered), initial encounter; F03.90 Unspecified dementia, unspecified severity, without behavioral disturbance, psychotic disturbance, mood disturbance, and anxiety
CPT/HCPCS: 70450; 71045; 72125; 72170; 73060; 99285

== ENCOUNTER → 2023-08-29 07:17 | Outpatient (CLI) | payer MEDICARE, MEDICAID, SELFPAY ==
[2023-08-29 07:26] LABS: Microscopic, Urine URINE MICROSCOPIC (MICROSCOPIC)
[2023-08-29 07:29] LABS: Appearance,Urine CLOUDY (Clear); Bilirubin,Urine Negative (Negative); Blood, Urine Negative (Negative); Color,Urine YELLOW (Yellow); Glucose,Urine (UA) Negative (Negative); Ketones,Urine Negative (Negative); Leukocyte Esterase,Urine 1+ (Negative); Nitrate,Urine Negative (Negative); PH,Urine 5.5 (5.0-8.5); Protein,Urine Negative (Negative); Specific Gravity, Urine 1.025 (1.005-1.030); Urobilinogen,Urine 0.2 EU/dl (0.2)
[2023-08-29 07:41] LABS: Bacteria,Urine 4+ /lpf; WBC,Urine 20-50 #/hpf (0-3)
== END ==
LOC: LAB.DROPOF 07:19
PROVIDERS: PCP Internal Medicine; Visit Provider Internal Medicine
DX: R10.9 Unspecified abdominal pain (principal); R30.0 Dysuria; B95.2 Enterococcus as the cause of diseases classified elsewhere
CPT/HCPCS: 81001; 87086

== ENCOUNTER 2023-09-28 21:21 | Emergency (ER) | payer MEDICARE, MEDICAID, SELFPAY ==
[2023-09-28 21:21] VITALS: BP 135/72; PULSE 57; RESP 17; TEMP 36.5; O2SAT 94; BMI 29.0
--- NOTE | 2023-09-28 21:57 | ED_ITS ---
Discharge Plan Disposition Patient Disposition: Home, Self-Care Prescriptions Prescriptions: No Action donepezil 10 mg tablet 10 mg PO DAILY albuterol sulfate [Ventolin HFA] 90 mcg/actuation HFA aerosol inhaler 2 puff IH Q6HP PRN (Reason: Shortness Of Breath) metoprolol succinate 25 mg tablet extended release 24 hr 12.5 mg PO DAILY Qty: 30 5RF acetaminophen 500 mg tablet 500 mg PO Q4HP PRN (Reason: Mild Pain (Scale Score 1-4)) Gaviscon 95-358 mg/15 mL suspension 30 ml PO .q4hrs PRN loperamide 2 mg capsule 2 mg PO QID PRN (Reason: Diarrhea) Rx Instructions: administer after each loose stool until symptoms controlled; do not exceed 8 mg per 24 hrs Robafen DM 5-50 mg/5 mL liquid 10 ml PO Q6H PRN (Reason: cough/congestion) acetaminophen [Acetaminophen Extra Strength] 500 mg tablet 500 mg PO TID cranberry extract 425 mg capsule 425 mg PO DAILY Rx Instructions: administer with a meal nitrofurantoin macrocrystal 50 mg capsule 50 mg PO DAILY Rx Instructions: must administer with a meal/food risperidone 0.5 mg tablet 0.5 mg PO QAM risperidone 0.5 mg tablet 0.5 mg PO HS multivitamin Tablet 1 tab PO DAILY lorazepam [Ativan] 1 mg tablet 1 mg PO TID Qty: 90 0RF gabapentin 600 mg tablet 600 mg PO BID Qty: 60 2RF atorvastatin 40 MG tablet 40 mg PO DAILY aspirin 81 MG tablet,chewable 81 mg PO DAILY fluoxetine 40 mg capsule 40 mg PO DAILY bethanechol chloride 25 mg tablet 25 mg PO TID memantine 28 mg capsule,sprinkle,ER 24hr 28 mg PO DAILY docusate sodium 100 mg Capsule 100 mg PO BID ondansetron 4 mg Tablet,Disintegrating 4 mg PO Q6HP PRN (Reason: Nausea And Vomiting) Activity Restrictions/Add. Instructions Additional Instructions/Restrictions: No evidence on physical exam of any traumatic injuries. Therefore no diagnostic testing or imaging was warranted from emergency standpoint. Also no new or different symptoms preceded this to our knowledge further supporting no emergency testing needed medical screening exam was performed no emergent medical condition was identified. Please send the patient back to the emergency department if there were other emergent concerns. Clinical Impressions Clinical Impression: Encounter for medical screening examination Discharge ED Provider: Phyllis Rg General Adult HPI General Chief complaint: Fall Stated complaint: FALL,RIGHT HIP PAIN Time Seen by Provider: 09/28/23 21:50 Mode of Arrival: EMS Source of Information: Patient, EMS and Medical Record Limitations: Altered Mental Status Description of Symptoms (Recalled from ER Triage Doc. by RN): [facility] staff contacted EMS for unwitnessed fall. Patient found in floor sitting in apparent urine. Patient unable to verbalize any pain or discomfort at this time. History of Present Illness HPI narrative: Patient is a 78-year-old female who is normally wheelchair-bound able to communicate with me who presents from [facility] after being found next to her wheelchair. She did have some urinary incontinence at that time. There were no preceding symptoms such as fever or changes in mental status any other symptoms they were just concerned about possible injuries to our knowledge. The patient is able to articulate to me that she has no pain and that she does not believe she has any injuries. Related Data Home Medications Medication Instructions Recorded Confirmed donepezil 10 mg tablet 10 mg PO DAILY Memory 01/02/20 07/23/23 atorvastatin 40 mg tablet 40 mg PO DAILY Cholesterol 01/24/20 07/23/23 aspirin 81 mg chewable tablet 81 mg PO DAILY Heart health 04/07/20 07/23/23 albuterol sulfate 90 mcg/actuation 2 puff inhalation Q6HP PRN 01/29/22 07/24/23 aerosol inhaler (Ventolin HFA) Shortness Of Breath bethanechol chloride 25 mg tablet 25 mg PO TID Urinary Retention 07/23/23 07/24/23 fluoxetine 40 mg capsule 40 mg PO DAILY Mood 07/23/23 07/24/23 memantine 28 mg capsule 28 mg PO DAILY Memory 07/23/23 07/24/23 sprinkle,extended release 24hr docusate sodium 100 mg capsule 100 mg PO BID Constipation 07/24/23 07/24/23 ondansetron 4 mg disintegrating 4 mg PO Q6HP PRN Nausea And 07/24/23 07/24/23 tablet Vomiting acetaminophen 500 mg tablet 500 mg PO Q4HP PRN Mild Pain 08/06/23 (Scale Score 1-4) acetaminophen 500 mg tablet 500 mg PO TID 08/06/23 (Acetaminophen Extra Strength) aluminum hydrox-magnesium carb 95 30 ml PO .q4hrs PRN 08/06/23 mg-358 mg/15 mL oral suspension (Gaviscon) cranberry extract 425 mg capsule 425 mg PO DAILY 08/06/23 dextromethorphan 5 mg-guaifenesin 10 ml PO Q6H PRN cough/congestion 08/06/23 50 mg/5 mL oral liquid (Robafen DM) loperamide 2 mg capsule 2 mg PO QID PRN Diarrhea 08/06/23 multivitamin 1 tab PO DAILY 08/06/23 nitrofurantoin macrocrystal 50 mg 50 mg PO DAILY 08/06/23 capsule risperidone 0.5 mg tablet 0.5 mg PO HS 08/06/23 risperidone 0.5 mg tablet 0.5 mg PO QAM Mood 08/06/23 Previous Rx's Medication Instructions Recorded metoprolol succinate 25 mg 12.5 mg PO DAILY High blood 01/29/22 tablet,extended release 24 hr pressure #30 tabs gabapentin 600 mg tablet 600 mg PO BID #60 tabs 09/10/23 lorazepam 1 mg tablet (Ativan) 1 mg PO TID Anxiety #90 tabs 09/10/23 Allergies Allergy/AdvReac Type Severity Reaction Status Date / Time diphtheria toxoid,fluid Allergy Unknown Unknown Verified 04/15/23 09:35 [DIPHTHERIA TOXOID,FLUID] allergy reaction Penicillins [PENICILLINS] Allergy Unknown Unknown Verified 04/15/23 09:35 allergy reaction Sulfa (Sulfonamide Allergy Unknown Unknown Verified 04/15/23 09:35 Antibiotics) allergy [SULFA (SULFONAMIDE reaction ANTIBIOTICS)] tetanus and diphtheria Allergy Unknown Unknown Verified 04/15/23 09:35 toxoids allergy [TETANUS & DIPHTHERIA reaction TOXOIDS] codeine Allergy Unknown Verified 04/15/23 09:35 allergy reaction morphine Allergy Unknown Verified 04/15/23 09:35 allergy reaction PFSH PFSH Disclaimer: The information contained in this section may have been updated after the patient was seen, as this information can be updated by other users. Medical History AAA (abdominal aortic aneurysm) without rupture Adrenal mass, left Anxiety disorder, unspecified Bilateral primary osteoarthritis of hip Bipolar disorder, current episode mixed, unspecified Cerebral aneurysm, nonruptured Dementia in other diseases classified elsewhere, unspecified severity, with other behavioral disturbance Diverticulosis Lumbar radicular pain Obesity (BMI 30.0-34.9) Other dislocation of left shoulder joint, initial encounter Pathological fracture, left shoulder, initial encounter for fracture Tobacco use Vitamin B12 deficiency anemia, unspecified Surgical History History of laparotomy Social History Smoking Status: Unknown if ever smoked alcohol intake: never substance use type: denies use current occupational status: disabled Travel in the last 8 weeks: None household members: other housing: assisted living facility current occupational exposures/hazards: No caffeine: Yes ROS Obtained: Yes All systems reviewed & no additional complaints except as documented Physical Exam General General appearance: alert and in no apparent distress Head Head exam: atraumatic and normocephalic Eye Eye exam: Present normal appearance and PERRL ENT ENT exam: Present normal exam Neck Neck exam: Present normal inspection and full ROM; Absent tenderness Chest Chest inspection: Present normal inspection; Absent symmetric chest wall rise Respiratory Respiratory exam: Present normal lung sounds bilaterally; Absent respiratory di stress Cardiovascular Cardiovascular exam: Present regular rate and normal rhythm Abdominal Exam Abdominal exam: Present soft; Absent distention or tenderness Extremities Exam Extremities exam: Present other (All extremities palpated and examined unclot hed, there are no evidence of ecchymosis tenderness swelling erythema etc.) Neurological Exam Neurological exam: Present alert (Answering questions appropriately at her baseline according to nurses know her well) Medical Decision Making Nico Inquiry Pt receiving controlled substance: No Vital Signs: 09/28/23 21:21 Temperature 97.7 F Temperature Source Oral Pulse Rate [Left Radial] 57 L Respiratory Rate 17 Blood Pressure [Right Arm] 135/72 Blood Pressure Mean [Right Arm] 93 Blood Pressure Source [Right Arm] Automatic Cuff Blood Pressure Position [Right Arm] Sitting 02 Sat by Pulse Oximetry 94 L Oxygen Delivery Method Room Air Medical Decision Narrative: Is a 78-year-old female sent in for a suppose a fall. There is no evidence of any trauma at all on physical exam. She also states that she did not have any injuries and has no pain. No indication and specifically no evidence of anything that would be focal from a diagnostic standpoint occluding imaging. She also had no preceding symptoms to our knowledge prior to this episode what ever led to her being next to her wheelchair. She is at her neurologic baseline according to the nurses who know her well. She does not appear septic she is afebrile vital signs are stable she has no tenderness and no other complaints. There is no indication for nonspecific diagnostic workup in this particular patient medical screening exam has been done alf has been told to center back with any other focal emergent complaints. She was discharged in stable condition. Critical Care Critical Care Time Critical Care Time: No
--- NOTE | 2023-09-28 21:57 | PC.NURSE ---
Performed pericare and changed sheets and brief. Patient able to assist with rolling side to side.
[2023-09-28 22:00] VITALS: BP 134/89; PULSE 55; O2SAT 95
--- NOTE | 2023-09-28 22:02 | PC.NURSE ---
Nurse report to Siobhan at [facility].
[2023-09-28 22:19] VITALS: BP 134/75; PULSE 95; RESP 18; TEMP 36.5; O2SAT 94
--- NOTE | 2023-09-28 22:23 | PC.NURSE ---
contacted EMS for transport
--- NOTE | 2023-09-28 22:33 | PC.NURSE ---
ems present at bedside
--- NOTE | 2023-10-05 20:38 | PC.NURSE ---
notified Dr Rg of abnormal urine culture. pt was prescribed cefdinir. No new orders
== END 2023-09-28 22:42 | disposition home or self-care (01) ==
PROVIDERS: Emergency Provider Student in an Organized Health Care Education/Training Program; PCP Internal Medicine
DX: M25.551 Pain in right hip (principal); R32 Unspecified urinary incontinence; M16.0 Bilateral primary osteoarthritis of hip; I71.40 Abdominal aortic aneurysm, without rupture, unspecified; I67.1 Cerebral aneurysm, nonruptured; F03.90 Unspecified dementia, unspecified severity, without behavioral disturbance, psychotic disturbance, mood disturbance, and anxiety; W05.0XXA Fall from non-moving wheelchair, initial encounter
CPT/HCPCS: 99283

== ENCOUNTER 2023-09-29 22:01 | Emergency (ER) | payer MEDICARE, MEDICAID, SELFPAY ==
[2023-09-29 22:00] VITALS: BP 148/72; PULSE 66; RESP 20; O2SAT 95
[2023-09-29 22:01] VITALS: BP 148/72; PULSE 89; RESP 18; TEMP 36.6; O2SAT 98; BMI 29.0
--- NOTE | 2023-09-29 22:04 | CT_ITS ---
PROCEDURE INFORMATION: Exam: CT Head Without Contrast Exam date and time: 09/29/2023 10:14 PM Age: 78 years old Clinical indication: Other: Bruise; Additional info: Facial bruise, fall from [place] TECHNIQUE: Imaging protocol: Computed tomography of the head without contrast. Total images: 289 Radiation optimization: All CT scans at this facility use at least one of these dose optimization techniques: automated exposure control; mA and/or kV adjustment per patient size (includes targeted exams where dose is matched to clinical indication); or iterative reconstruction. COMPARISON: CT HEAD/BRAIN WO CON 08/28/2023 9:14 PM FINDINGS: Brain: No acute intracranial hemorrhage, midline shift, or mass. Mild to moderate cortical and cerebellar atrophy. Mild periventricular and scattered subcortical white matter hypodensity compatible with remote small vessel ischemic changes. Lal-white interface is maintained. Basilar cisterns are preserved. Additional remote deep white matter ischemic changes within the right external capsule and central karen. Cerebral ventricles: No ventriculomegaly. Paranasal sinuses: Minor mucosal thickening scattered ethmoid air cells and base of the bilateral maxillary sinuses. No air-fluid levels. Mastoid air cells: Visualized mastoid air cells are well aerated. Orbital cavities: Status post bilateral orbital lens replacement. Bones/joints: Osteopenia. Hyperostosis of the calvarium. No skull fracture. Soft tissues: Minor soft tissue swelling left frontal scalp, improved from August 28, 2023. No hematoma. Vasculature: Intravascular stent right intracranial internal carotid artery. Stable ectasia of the right MCA. Moderate calcification left intracranial internal carotid artery. IMPRESSION: 1. No acute intracranial process. 2. Stable chronic findings. 3. Overall, no significant change from August 28, 2023.
--- NOTE | 2023-09-29 22:09 | ED_ITS ---
Discharge Plan Disposition Patient Disposition: Still a Patient Prescriptions Prescriptions: New cefdinir 300 mg capsule 300 mg PO BID 10 Days Qty: 20 0RF No Action donepezil 10 mg tablet 10 mg PO DAILY albuterol sulfate [Ventolin HFA] 90 mcg/actuation HFA aerosol inhaler 2 puff IH Q6HP PRN (Reason: Shortness Of Breath) metoprolol succinate 25 mg tablet extended release 24 hr 12.5 mg PO DAILY Qty: 30 5RF acetaminophen 500 mg tablet 500 mg PO Q4HP PRN (Reason: Mild Pain (Scale Score 1-4)) Gaviscon 95-358 mg/15 mL suspension 30 ml PO .q4hrs PRN loperamide 2 mg capsule 2 mg PO QID PRN (Reason: Diarrhea) Rx Instructions: administer after each loose stool until symptoms controlled; do not exceed 8 mg per 24 hrs Robafen DM 5-50 mg/5 mL liquid 10 ml PO Q6H PRN (Reason: cough/congestion) acetaminophen [Acetaminophen Extra Strength] 500 mg tablet 500 mg PO TID cranberry extract 425 mg capsule 425 mg PO DAILY Rx Instructions: administer with a meal nitrofurantoin macrocrystal 50 mg capsule 50 mg PO DAILY Rx Instructions: must administer with a meal/food risperidone 0.5 mg tablet 0.5 mg PO QAM risperidone 0.5 mg tablet 0.5 mg PO HS multivitamin Tablet 1 tab PO DAILY lorazepam [Ativan] 1 mg tablet 1 mg PO TID Qty: 90 0RF gabapentin 600 mg tablet 600 mg PO BID Qty: 60 2RF atorvastatin 40 MG tablet 40 mg PO DAILY aspirin 81 MG tablet,chewable 81 mg PO DAILY fluoxetine 40 mg capsule 40 mg PO DAILY bethanechol chloride 25 mg tablet 25 mg PO TID memantine 28 mg capsule,sprinkle,ER 24hr 28 mg PO DAILY docusate sodium 100 mg Capsule 100 mg PO BID ondansetron 4 mg Tablet,Disintegrating 4 mg PO Q6HP PRN (Reason: Nausea And Vomiting) Referrals Follow up/Referrals: Provider,Referral, MD [Primary Care Provider] - See instructions Clinical Impressions Clinical Impression: Fall, Facial bruising, Acute UTI Discharge ED Provider: Phyllis Rg General Adult HPI General Chief complaint: Fall Stated complaint: fall w/head injury; uti symptoms Time Seen by Provider: 09/29/23 22:10 History of Present Illness HPI narrative: Patient is a 78-year-old female very well-known to our emergency department presents today after a questionable fall found next to her bed or wheelchair the thought was that she was possibly trying to get to the bathroom to use the bathroom but was found down. No definitive trauma today. She has had foul- smelling urine for an extended period time. She has had many abnormal urinalyses in the past. She has not had however any fever any changes in mental status to our knowledge and has had no other signs or symptoms of urinary tract infection other than a questionable foul smell. However her daughter called and states that she believes she is acting differently and that when she is try to get up to go to the bathroom more frequently that this is when she falls more often so she believes she is having different symptoms. She was seen yesterday with similar symptoms did not have any signs or symptoms of trauma no workup was done yesterday. Her daughter specifically asked today that we check a urinalysis. Related Data Home Medications Medication Instructions Recorded Confirmed donepezil 10 mg tablet 10 mg PO DAILY Memory 01/02/20 07/23/23 atorvastatin 40 mg tablet 40 mg PO DAILY Cholesterol 01/24/20 07/23/23 aspirin 81 mg chewable tablet 81 mg PO DAILY Heart health 04/07/20 07/23/23 albuterol sulfate 90 mcg/actuation 2 puff inhalation Q6HP PRN 01/29/22 07/24/23 aerosol inhaler (Ventolin HFA) Shortness Of Breath bethanechol chloride 25 mg tablet 25 mg PO TID Urinary Retention 07/23/23 07/24/23 fluoxetine 40 mg capsule 40 mg PO DAILY Mood 07/23/23 07/24/23 memantine 28 mg capsule 28 mg PO DAILY Memory 07/23/23 07/24/23 sprinkle,extended release 24hr docusate sodium 100 mg capsule 100 mg PO BID Constipation 07/24/23 07/24/23 ondansetron 4 mg disintegrating 4 mg PO Q6HP PRN Nausea And 07/24/23 07/24/23 tablet Vomiting acetaminophen 500 mg tablet 500 mg PO Q4HP PRN Mild Pain 08/06/23 (Scale Score 1-4) acetaminophen 500 mg tablet 500 mg PO TID 08/06/23 (Acetaminophen Extra Strength) aluminum hydrox-magnesium carb 95 30 ml PO .q4hrs PRN 08/06/23 mg-358 mg/15 mL oral suspension (Gaviscon) cranberry extract 425 mg capsule 425 mg PO DAILY 08/06/23 dextromethorphan 5 mg-guaifenesin 10 ml PO Q6H PRN cough/congestion 08/06/23 50 mg/5 mL oral liquid (Robafen DM) loperamide 2 mg capsule 2 mg PO QID PRN Diarrhea 08/06/23 multivitamin 1 tab PO DAILY 08/06/23 nitrofurantoin macrocrystal 50 mg 50 mg PO DAILY 08/06/23 capsule risperidone 0.5 mg tablet 0.5 mg PO HS 08/06/23 risperidone 0.5 mg tablet 0.5 mg PO QAM Mood 08/06/23 Previous Rx's Medication Instructions Recorded metoprolol succinate 25 mg 12.5 mg PO DAILY High blood 01/29/22 tablet,extended release 24 hr pressure #30 tabs gabapentin 600 mg tablet 600 mg PO BID #60 tabs 09/10/23 lorazepam 1 mg tablet (Ativan) 1 mg PO TID Anxiety #90 tabs 09/10/23 cefdinir 300 mg capsule 300 mg PO BID 10 days #20 caps 09/29/23 Allergies Allergy/AdvReac Type Severity Reaction Status Date / Time diphtheria toxoid,fluid Allergy Unknown Unknown Verified 04/15/23 09:35 [DIPHTHERIA TOXOID,FLUID] allergy reaction Penicillins [PENICILLINS] Allergy Unknown Unknown Verified 04/15/23 09:35 allergy reaction Sulfa (Sulfonamide Allergy Unknown Unknown Verified 04/15/23 09:35 Antibiotics) allergy [SULFA (SULFONAMIDE reaction ANTIBIOTICS)] tetanus and diphtheria Allergy Unknown Unknown Verified 04/15/23 09:35 toxoids allergy [TETANUS & DIPHTHERIA reaction TOXOIDS] codeine Allergy Unknown Verified 04/15/23 09:35 allergy reaction morphine Allergy Unknown Verified 04/15/23 09:35 allergy reaction PFSH PFSH Disclaimer: The information contained in this section may have been updated after the patient was seen, as this information can be updated by other users. Medical History AAA (abdominal aortic aneurysm) without rupture Adrenal mass, left Anxiety disorder, unspecified Bilateral primary osteoarthritis of hip Bipolar disorder, current episode mixed, unspecified Cerebral aneurysm, nonruptured Dementia in other diseases classified elsewhere, unspecified severity, with other behavioral disturbance Diverticulosis Lumbar radicular pain Obesity (BMI 30.0-34.9) Other dislocation of left shoulder joint, initial encounter Pathological fracture, left shoulder, initial encounter for fracture Tobacco use Vitamin B12 deficiency anemia, unspecified Surgical History History of laparotomy Social History Smoking Status: Unknown if ever smoked alcohol intake: never substance use type: denies use current occupational status: disabled Travel in the last 8 weeks: None household members: other housing: assisted living facility current occupational exposures/hazards: No caffeine: Yes ROS Obtained: Yes All systems reviewed & no additional complaints except as documented Physical Exam General General appearance: alert Head Head exam: other (Left zygomatic bruise) Neck Neck exam: Absent tenderness Respiratory Respiratory exam: Present normal lung sounds bilaterally Cardiovascular Cardiovascular exam: Present regular rate Abdominal Exam Abdominal exam: Present soft; Absent distention or tenderness Neurological Exam Neurological exam: Present alert (Interactive with me answering questions denies any pain) Medical Decision Making Nico Inquiry Pt receiving controlled substance: No Nico was queried for this patient: No Vital Signs: 09/29/23 22:01 Temperature 97.8 F Temperature Source Oral Pulse Rate [Left Radial] 89 Respiratory Rate 18 Blood Pressure [Right Arm] 148/72 H Blood Pressure Mean [Right Arm] 97 Blood Pressure Source [Right Arm] Automatic Cuff Blood Pressure Position [Right Arm] Sitting 02 Sat by Pulse Oximetry 98 Oxygen Delivery Method Room Air Lab Data Lab Results 09/29/23 22:34: Urine Color Yellow, Urine Appearance Cloudy, Urine pH 8.5, Ur Specific [place] 1.015, Urine Protein 2+, Urine Glucose (UA) Negative, Urine Ketones Negative, Urine Blood Trace-i, Urine Nitrate Negative, Urine Bilirubin Negative, Urine Urobilinogen 0.2, Ur Leukocyte Esterase 2+ A Orders (Tests/Meds): ORDERS Category Date Time Status CT head/brain wo con Stat Cat Scan 09/29/23 22:04 Completed UA [Urinalysis and Microscopic] Stat Lab 09/29/23 22:34 Received Medical Decision Narrative: 78-year-old female presenting today after a questionable fall she does have a bruise on her face today we will get a CT scan of her head. No other signs or symptoms of trauma. Regarding the urinary tract infection. She has chronic abnormal urines and the presence of a bacteria or abnormal urinalyses does not necessarily imply that the patient has an infection. She has no other signs and symptoms of infection including fever changes in mental status etc. However her daughter states that she believes she is acting differently and that she may have some dysuria because she is trying to the bathroom more frequently and this is when she falls her daughter specifically requests that we check urinalysis. I told her I am certain that her urinalysis will be abnormal and that the presence of an abnormal urine test should not change or keep the [facility] from treating urinary tract infections in the future. 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 She still would like for us to go ahead and test and treat. Therefore antibiotic will be sent to her pharmacy and she will follow-up if her [facility] physician regarding this. CT scan performed I personally interpreted which does not show any acute intracranial abnormalities this also consistent with radiology read. Critical Care Critical Care Time Critical Care Time: No
--- NOTE | 2023-09-29 22:10 | PC.NURSE ---
Bed bath for patient, linen change, gown change.
[2023-09-29 22:31] VITALS: BP 133/71; PULSE 60; RESP 18; O2SAT 95
[2023-09-29 22:38] LABS: Microscopic, Urine URINE MICROSCOPIC (MICROSCOPIC)
[2023-09-29 22:46] LABS: Appearance,Urine CLOUDY (Clear); Bilirubin,Urine Negative (Negative); Blood, Urine TRACE-I (Negative); Color,Urine YELLOW (Yellow); Glucose,Urine (UA) Negative (Negative); Ketones,Urine Negative (Negative); Leukocyte Esterase,Urine 2+ (Negative); Nitrate,Urine Negative (Negative); PH,Urine 8.5 (5.0-8.5); Protein,Urine 2+ (Negative); Specific Gravity, Urine 1.015 (1.005-1.030); Urobilinogen,Urine 0.2 EU/dl (0.2)
[2023-09-29 23:00] VITALS: BP 144/85; PULSE 61; RESP 20; O2SAT 94
[2023-09-29 23:02] VITALS: BP 144/85; PULSE 89; RESP 19; TEMP 36.6; O2SAT 99
--- NOTE | 2023-09-29 23:02 | PC.NURSE ---
Called [facility] and gave report to Doris.
[2023-09-29 23:06] LABS: Bacteria,Urine 4+ /lpf; RBC,Urine Occasional #/hpf (0-3)
== END 2023-09-30 00:38 | disposition still patient (30) ==
PROVIDERS: Emergency Provider Student in an Organized Health Care Education/Training Program
DX: S00.12XA Contusion of left eyelid and periocular area, initial encounter (principal); N39.0 Urinary tract infection, site not specified; I71.40 Abdominal aortic aneurysm, without rupture, unspecified; I67.1 Cerebral aneurysm, nonruptured; M16.0 Bilateral primary osteoarthritis of hip; W17.89XA Other fall from one level to another, initial encounter
CPT/HCPCS: 70450; 81001; 87086; 99284

== ENCOUNTER 2023-10-04 12:11 | Emergency (ER) | payer MEDICARE, MEDICAID, SELFPAY ==
[2023-10-04 12:11] VITALS: BP 94/69; PULSE 55; RESP 16; TEMP 36.6; O2SAT 95; BMI 31.1
--- NOTE | 2023-10-04 12:12 | XR_ITS ---
PROCEDURE INFORMATION: Exam: XR Pelvis Exam date and time: 10/04/2023 12:37 PM Age: 78 years old Clinical indication: Injury or trauma; Fall; Blunt trauma (contusions or hematomas); Bilateral; Hip; Additional info: Fall, forehead laceration, >65 TECHNIQUE: Imaging protocol: Radiologic exam of the pelvis. Views: 1 or 2 view. COMPARISON: CR XR PELVIS 1-2V 08/28/2023 9:18 PM FINDINGS: Bones/joints: Status post bilateral hip arthroplasties. Protrusion deformity of the acetabula is unchanged. Overlying bowel gas obscures the assessment of the sacral structures. Questionable fracture along the left parasymphyseal superior pubic tubercle. Soft tissues: Unremarkable. IMPRESSION: Questionable fracture along the left parasymphyseal superior pubic tubercle.
--- NOTE | 2023-10-04 12:12 | CT_ITS ---
PROCEDURE INFORMATION: Exam: CT Head Without Contrast Exam date and time: 10/04/2023 12:36 PM Age: 78 years old Clinical indication: Injury or trauma; Fall; Blunt trauma (contusions or hematomas); Additional info: Fall, forehead laceration, >65 TECHNIQUE: Imaging protocol: Computed tomography of the head without contrast. Radiation optimization: All CT scans at this facility use at least one of these dose optimization techniques: automated exposure control; mA and/or kV adjustment per patient size (includes targeted exams where dose is matched to clinical indication); or iterative reconstruction. COMPARISON: CT HEAD/BRAIN WO CON 09/29/2023 10:14 PM FINDINGS: Brain: Chronic small vessel ischemic disease. No acute intracranial hemorrhage. Cerebral ventricles: Mildly prominent ventricles and sulci, consistent with mild cerebral atrophy. Paranasal sinuses: Visualized sinuses are unremarkable. No fluid levels. Mastoid air cells: Visualized mastoid air cells are well aerated. Bones/joints: Hyperostosis frontalis. No acute fracture. Soft tissues: [id number] soft tissue swelling and laceration overlying left frontal bone and left orbit. IMPRESSION: 1. No acute fracture. [id number] soft tissue swelling and laceration overlying left frontal bone and left orbit. 2. Mildly prominent ventricles and sulci, consistent with mild cerebral atrophy. 3. Chronic small vessel ischemic disease.
--- NOTE | 2023-10-04 12:12 | XR_ITS ---
PROCEDURE INFORMATION: Exam: XR Right Knee Exam date and time: 10/04/2023 12:40 PM Age: 78 years old Clinical indication: Injury or trauma; Fall; Blunt trauma; Knee; Right; Additional info: Fall, forehead laceration, >65 TECHNIQUE: Imaging protocol: Radiologic exam of the right knee. Views: 3 views. COMPARISON: No relevant prior studies available. FINDINGS: Bones/joints: There are mild degenerative changes of the knee joint, predominantly involving the medial joint compartment. No visible fracture or dislocation. No joint effusion Soft tissues: Normal. IMPRESSION: No visible fracture or dislocation.
--- NOTE | 2023-10-04 12:12 | XR_ITS ---
PROCEDURE INFORMATION: Exam: XR Chest Exam date and time: 10/04/2023 12:35 PM Age: 78 years old Clinical indication: Injury or trauma; Fall; Blunt trauma (contusions or hematomas); Additional info: Fall, forehead laceration, >65 TECHNIQUE: Imaging protocol: Radiologic exam of the chest. Views: 1 view. COMPARISON: CR XR CHEST AP 08/28/2023 9:18 PM FINDINGS: Lungs: 2.2 cm calcification in the right upper lobe. Subpleural reticulation with lower lobe gradient favored represent interstitial changes.No evidence of pneumonia or interstitial edema. Pleural spaces: Unremarkable. No pleural effusion. No pneumothorax. Heart/Mediastinum: Cardiomegaly noted. Bones/joints: No visible acute fracture. Osteoarthritis of the glenohumeral joints bilaterally. IMPRESSION: 1. Subpleural reticulation with lower lobe gradient favored represent interstitial changes. No evidence of pneumonia or interstitial edema. 2. No visible acute fracture.
--- NOTE | 2023-10-04 12:12 | XR_ITS ---
PROCEDURE INFORMATION: Exam: XR Right Tibia and Fibula Exam date and time: 10/04/2023 12:41 PM Age: 78 years old Clinical indication: Injury or trauma; Fall; Blunt trauma; Lower leg; Right; Additional info: Fall, forehead laceration, >65 TECHNIQUE: Imaging protocol: Radiologic exam of the right tibia and fibula. Views: 2 views. COMPARISON: CR XR KNEE RT 3V 10/04/2023 12:40 PM FINDINGS: Bones/joints: No visible fracture or dislocation. Soft tissues: Normal. IMPRESSION: No visible fracture or dislocation.
--- NOTE | 2023-10-04 12:12 | XR_ITS ---
PROCEDURE INFORMATION: Exam: XR Left Knee Exam date and time: 10/04/2023 12:48 PM Age: 78 years old Clinical indication: Injury or trauma; Fall; Blunt trauma; Knee; Left; Additional info: Fall, forehead laceration, >65 TECHNIQUE: Imaging protocol: Radiologic exam of the left knee. Views: 3 views. COMPARISON: No relevant prior studies available. FINDINGS: Bones/joints: Mild knee joint effusion. Moderate soft tissue swelling along the medial aspect of knee. No acute fracture. Moderate medial femorotibial degenerative joint disease. Soft tissues: See Bones/joints finding. Vasculature: Vascular calcifications. IMPRESSION: No acute fracture. Mild knee joint effusion. Moderate soft tissue swelling along the medial aspect of knee. Moderate medial femorotibial degenerative joint disease.
--- NOTE | 2023-10-04 12:12 | CT_ITS ---
PROCEDURE INFORMATION: Exam: CT Cervical Spine Without Contrast Exam date and time: 10/04/2023 12:37 PM Age: 78 years old Clinical indication: Injury or trauma; Fall; Blunt trauma; Additional info: Fall, forehead laceration, >65 TECHNIQUE: Imaging protocol: Computed tomography of the cervical spine without contrast. Radiation optimization: All CT scans at this facility use at least one of these dose optimization techniques: automated exposure control; mA and/or kV adjustment per patient size (includes targeted exams where dose is matched to clinical indication); or iterative reconstruction. COMPARISON: CT CERVICAL SPINE WO CON 08/28/2023 9:14 PM FINDINGS: Bones/joints: No acute fracture. Moderate to severe multilevel degenerative disc disease of the cervical spine. No subluxation or dislocation. Prevertebral and retropharyngeal spaces: No prevertebral soft tissue swelling. Lungs: Mosaic attenuation in the partially visualized lung apices, nonspecific, but can be seen in setting of pulmonary edema. Thyroid: There is a 2 cm left thyroid nodule, with a focal calcification. Correlate with nonurgent thyroid ultrasound for further evaluation. Vasculature: Aortic atherosclerosis. No aneurysm. Soft tissues: Unremarkable. IMPRESSION: 1. No acute fracture. Moderate to severe multilevel degenerative disc disease of the cervical spine. 2. There is a 2 cm left thyroid nodule, with a focal calcification. Correlate with nonurgent thyroid ultrasound for further evaluation. 3. Mosaic attenuation in the partially visualized lung apices, nonspecific, but can be seen in setting of pulmonary edema. COMMENTS: Consistent with the [employer] [place] [employer]'s Incidental Findings Committee white paper (J Am Stewart Radiol 2015): In patients aged 35 years and older with an incidental thyroid nodule equal to or greater than 1.[address], MRI or extrathyroidal US, further evaluation with dedicated thyroid US is recommended for patients with normal life expectancy and without comorbidities. For smaller nodules without suspicious features, no further evaluation or follow up is recommended.
[2023-10-04 12:29] VITALS: BP 100/64; PULSE 47; O2SAT 93
--- NOTE | 2023-10-04 12:32 | PC.NURSE ---
Pt gone to RAD via stretcher
--- NOTE | 2023-10-04 12:32 | HMH.EDGENADL ---
Discharge Plan Disposition Patient Disposition: Xfer [facility] Condition: Good Prescriptions Prescriptions: No Action donepezil 10 mg tablet 10 mg PO DAILY albuterol sulfate [Ventolin HFA] 90 mcg/actuation HFA aerosol inhaler 2 puff IH Q6HP PRN (Reason: Shortness Of Breath) metoprolol succinate 25 mg tablet extended release 24 hr 12.5 mg PO DAILY Qty: 30 5RF acetaminophen 500 mg tablet 500 mg PO Q4HP PRN (Reason: Mild Pain (Scale Score 1-4)) Gaviscon 95-358 mg/15 mL suspension 30 ml PO .q4hrs PRN loperamide 2 mg capsule 2 mg PO QID PRN (Reason: Diarrhea) Rx Instructions: administer after each loose stool until symptoms controlled; do not exceed 8 mg per 24 hrs Robafen DM 5-50 mg/5 mL liquid 10 ml PO Q6H PRN (Reason: cough/congestion) acetaminophen [Acetaminophen Extra Strength] 500 mg tablet 500 mg PO TID cranberry extract 425 mg capsule 425 mg PO DAILY Rx Instructions: administer with a meal nitrofurantoin macrocrystal 50 mg capsule 50 mg PO DAILY Rx Instructions: must administer with a meal/food risperidone 0.5 mg tablet 0.5 mg PO QAM risperidone 0.5 mg tablet 0.5 mg PO HS multivitamin Tablet 1 tab PO DAILY lorazepam [Ativan] 1 mg tablet 1 mg PO TID Qty: 90 0RF gabapentin 600 mg tablet 600 mg PO BID Qty: 60 2RF atorvastatin 40 MG tablet 40 mg PO DAILY aspirin 81 MG tablet,chewable 81 mg PO DAILY cefdinir 300 mg capsule 300 mg PO BID 10 Days Qty: 20 0RF fluoxetine 40 mg capsule 40 mg PO DAILY bethanechol chloride 25 mg tablet 25 mg PO TID memantine 28 mg capsule,sprinkle,ER 24hr 28 mg PO DAILY docusate sodium 100 mg Capsule 100 mg PO BID ondansetron 4 mg Tablet,Disintegrating 4 mg PO Q6HP PRN (Reason: Nausea And Vomiting) Referrals Follow up/Referrals: Provider,Referral, MD [Primary Care Provider] - See instructions Activity Restrictions/Add. Instructions Additional Instructions/Restrictions: You were evaluated in the emergency department today. Please keep the wound clean and dry. Monitor for any signs of infection. You may apply antibiotic ointment if you desire. Return to the emergency department for new or worsening symptoms. Clinical Impressions Clinical Impression: Fall, Forehead laceration, Thyroid nodule Instructions Patient Instructions: How to Prevent Falls Discharge ED Provider: Stacy Butcher General Adult HPI General Chief complaint: Fall Stated complaint: fall Time Seen by Provider: 10/04/23 12:12 Mode of Arrival: EMS Source of Information: Patient Limitations: No Limitations Description of Symptoms (Recalled from ER Triage Doc. by RN): Per [facility] patient fell from standing striking her head. Patient complaint of right lower leg pain and right hip pain. Laceration noted to forhead. History of Present Illness HPI narrative: This patient is a 78-year-old female with a history of hypertension, hyperlipidemia, CAD, PAD, dementia, and general debility presenting from nursing facility after mechanical ground-level fall. Patient has frequent falls and has been evaluated here in the emergency department for such in the past. She has not been ambulating, but today she tried to get up out of her wheelchair and walk. She fell forward, hitting her face on the ground. No loss of consciousness noted. History is obtained from EMS as well as nursing facility report. History is difficult to obtain from patient given her baseline dementia. She does state that her legs hurt, with notable bruising to her knees and right lower nation from the fall. Related Data Home Medications Medication Instructions Recorded Confirmed donepezil 10 mg tablet 10 mg PO DAILY Memory 01/02/20 07/23/23 atorvastatin 40 mg tablet 40 mg PO DAILY Cholesterol 01/24/20 07/23/23 aspirin 81 mg chewable tablet 81 mg PO DAILY Heart health 04/07/20 07/23/23 albuterol sulfate 90 mcg/actuation 2 puff inhalation Q6HP PRN 01/29/22 07/24/23 aerosol inhaler (Ventolin HFA) Shortness Of Breath bethanechol chloride 25 mg tablet 25 mg PO TID Urinary Retention 07/23/23 07/24/23 fluoxetine 40 mg capsule 40 mg PO DAILY Mood 07/23/23 07/24/23 memantine 28 mg capsule 28 mg PO DAILY Memory 07/23/23 07/24/23 sprinkle,extended release 24hr docusate sodium 100 mg capsule 100 mg PO BID Constipation 07/24/23 07/24/23 ondansetron 4 mg disintegrating 4 mg PO Q6HP PRN Nausea And 07/24/23 07/24/23 tablet Vomiting acetaminophen 500 mg tablet 500 mg PO Q4HP PRN Mild Pain 08/06/23 (Scale Score 1-4) acetaminophen 500 mg tablet 500 mg PO TID 08/06/23 (Acetaminophen Extra Strength) aluminum hydrox-magnesium carb 95 30 ml PO .q4hrs PRN 08/06/23 mg-358 mg/15 mL oral suspension (Gaviscon) cranberry extract 425 mg capsule 425 mg PO DAILY 08/06/23 dextromethorphan 5 mg-guaifenesin 10 ml PO Q6H PRN cough/congestion 08/06/23 50 mg/5 mL oral liquid (Robafen DM) loperamide 2 mg capsule 2 mg PO QID PRN Diarrhea 08/06/23 multivitamin 1 tab PO DAILY 08/06/23 nitrofurantoin macrocrystal 50 mg 50 mg PO DAILY 08/06/23 capsule risperidone 0.5 mg tablet 0.5 mg PO HS 08/06/23 risperidone 0.5 mg tablet 0.5 mg PO QAM Mood 08/06/23 Previous Rx's Medication Instructions Recorded metoprolol succinate 25 mg 12.5 mg PO DAILY High blood 01/29/22 tablet,extended release 24 hr pressure #30 tabs gabapentin 600 mg tablet 600 mg PO BID #60 tabs 09/10/23 lorazepam 1 mg tablet (Ativan) 1 mg PO TID Anxiety #90 tabs 09/10/23 cefdinir 300 mg capsule 300 mg PO BID 10 days #20 caps 09/29/23 Allergies Allergy/AdvReac Type Severity Reaction Status Date / Time diphtheria toxoid,fluid Allergy Unknown Unknown Verified 04/15/23 09:35 [DIPHTHERIA TOXOID,FLUID] allergy reaction Penicillins [PENICILLINS] Allergy Unknown Unknown Verified 04/15/23 09:35 allergy reaction Sulfa (Sulfonamide Allergy Unknown Unknown Verified 04/15/23 09:35 Antibiotics) allergy [SULFA (SULFONAMIDE reaction ANTIBIOTICS)] tetanus and diphtheria Allergy Unknown Unknown Verified 04/15/23 09:35 toxoids allergy [TETANUS & DIPHTHERIA reaction TOXOIDS] codeine Allergy Unknown Verified 04/15/23 09:35 allergy reaction morphine Allergy Unknown Verified 04/15/23 09:35 allergy reaction PFSH PFSH Disclaimer: The information contained in this section may have been updated after the patient was seen, as this information can be updated by other users. Medical History AAA (abdominal aortic aneurysm) without rupture Adrenal mass, left Anxiety disorder, unspecified Bilateral primary osteoarthritis of hip Bipolar disorder, current episode mixed, unspecified Cerebral aneurysm, nonruptured Dementia in other diseases classified elsewhere, unspecified severity, with other behavioral disturbance Diverticulosis Lumbar radicular pain Obesity (BMI 30.0-34.9) Other dislocation of left shoulder joint, initial encounter Pathological fracture, left shoulder, initial encounter for fracture Tobacco use Vitamin B12 deficiency anemia, unspecified Surgical History History of laparotomy Social History Smoking Status: Current every day smoker tobacco type: cigarettes packs per day: 1 alcohol intake: never substance use type: denies use current occupational status: disabled Travel in the last 8 weeks: None household members: other housing: assisted living facility current occupational exposures/hazards: No caffeine: Yes ROS Obtained: Yes All systems reviewed & no additional complaints except as documented Physical Exam General General appearance: alert and in no apparent distress Head Head exam: normocephalic and other (very superficial linear abrasion to the center of the forehead) Eye Eye exam: Present normal appearance, PERRL and EOMI ENT ENT exam: Present normal exam, normal oropharynx, mucous membranes moist and normal external ear exam Neck Neck exam: Present normal inspection, full ROM and trachea midline; Absent tenderness Chest Chest inspection: Present normal inspection and symmetric chest wall rise; Absent tenderness Respiratory Respiratory exam: Present normal lung sounds bilaterally; Absent respiratory distress, wheezes, stridor or accessory muscle use Cardiovascular Cardiovascular exam: Present regular rate and normal rhythm Abdominal Exam Abdominal exam: Present soft; Absent distention, tenderness or guarding Extremities Exam Extremities exam: Present full ROM, tenderness (TTP of both knees, bruising/abrasion to b/l knees and the R lower leg. Intact ROM) and normal capillary refill; Absent edema Back Exam Back exam: Present normal inspection and full ROM; Absent tenderness Neurological Exam Neurological exam: Present alert and CN II-XII intact; Absent oriented X3 or motor sensory deficit Psychiatric Psychiatric exam: Present normal affect and normal mood Skin Skin exam: Present warm and dry Medical Decision Making Medical Records Medical records reviewed: Yes I reviewed the patient's medical records. Nico Inquiry Pt receiving controlled substance: No Vital Signs: 10/04/23 12:11 Temperature 97.9 F Temperature Source Oral Pulse Rate [Radial] 55 L Respiratory Rate 16 Blood Pressure [Right Arm] 94/69 L Blood Pressure Mean [Right Arm] 77 Blood Pressure Source [Right Arm] Automatic Cuff Blood Pressure Position [Right Arm] Supine 02 Sat by Pulse Oximetry 95 Oxygen Delivery Method Room Air Lab Data Lab results reviewed: Yes I reviewed the patient's lab results. Orders (Tests/Meds): ORDERS Category Date Time Status CT bony pelvis Stat Cat Scan 10/04/23 13:[address] cervical spine wo con Stat Cat Scan 10/04/23 12:[address] head/brain wo con Stat Cat Scan 10/04/23 12:12 Completed XR chest portable Stat Exams 10/04/23 12:12 Completed XR knee LT 3V Stat Exams 10/04/23 12:12 Completed XR knee RT 3V Stat Exams 10/04/23 12:12 Completed XR pelvis 1-2V Stat Exams 10/04/23 12:12 Completed XR tibia fibula RT 2V Stat Exams 10/04/23 12:12 Completed Medical Decision Narrative: In summary, this patient is a 78-year-old female presenting to the Emergency Department for evaluation of mechanical ground-level fall with abrasion to her head, bruising to her knees, bruising to her right nation. Differential diagnoses considered include but are not limited to laceration, abrasion, fracture, intracranial hemorrhage, polytrauma. Ruling out the most morbid conditions drove assessment. On exam, the patient is well-appearing. She is at her neurological baseline with reassuring vital signs on cardiac telemetry. She has a superficial linear abrasion to the forehead that does not require repair as well as bruising to both knees and bruising to her right nation. X-rays of the injured areas and CT scan of her head and neck were ordered. On reassessment, the patient is resting comfortably and remains at her neurologic baseline with reassuring vital signs on cardiac telemetry. I independently interpreted x-ray and CT prior to radiology read and noted no obvious acute intracranial injury, however patient does have significant degenerative change to her pelvis and cannot exclude fracture on x-ray. Given this, CT of the bony pelvis was ordered. This did not demonstrate any acute fractures per radiology read. Given reassuring workup and exam, feel the patient is appropriate for discharge back to her retirement facility. Patient was discharged in stable condition after all questions were answered and report was called. She was transported by EMS. Critical Care Critical Care Time Critical Care Time: No
--- NOTE | 2023-10-04 12:42 | PC.NURSE ---
Spoke with pt daughter, Na, to give update. Advised we would call back later when her scan results are back.
--- NOTE | 2023-10-04 13:04 | PC.NURSE ---
Pt returned from RAD
--- NOTE | 2023-10-04 13:18 | CT_ITS ---
PROCEDURE INFORMATION: Exam: CT Pelvis Without Contrast; Skeletal Exam date and time: 10/04/2023 1:38 PM Age: 78 years old Clinical indication: Injury or trauma; Fall; Blunt trauma (contusions or hematomas); Bilateral; Pelvic region; Patient HX: Patient had questionable finding by [facility]rad radiologist. CT scan done for radiologist. ; Additional info: Questionable pubic ramus FX on XR TECHNIQUE: Imaging protocol: Computed tomography of the pelvis without contrast. Exam focused on the skeleton. Radiation optimization: All CT scans at this facility use at least one of these dose optimization techniques: automated exposure control; mA and/or kV adjustment per patient size (includes targeted exams where dose is matched to clinical indication); or iterative reconstruction. COMPARISON: CT ABDOMEN PELVIS W CON 02/15/2023 6:50 AM FINDINGS: Bones/joints: Bilateral hip arthroplasties. Protrusion deformity of the bilateral acetabula noted. There is diffuse sclerosis along the pubic symphysis. Mild buckling of the left parasymphyseal superior pubic ramus is identified but likely sequela of prior injury. This correlates with prior radiographic finding. Multilevel degenerative changes of the included spine. No visible fracture or dislocation. Soft tissues: Unremarkable. IMPRESSION: 1. There is diffuse sclerosis along the pubic symphysis. Mild buckling of the left parasymphyseal superior pubic ramus is re-identified, but favored chronic sequela of prior injury. This correlates with prior radiographic finding. 2. No visible fracture or dislocation.
[2023-10-04 13:30] VITALS: BP 112/77; PULSE 45; O2SAT 94
[2023-10-04 14:00] VITALS: BP 133/63; PULSE 48; O2SAT 94
[2023-10-04 14:30] VITALS: BP 115/72; PULSE 50; O2SAT 95
--- NOTE | 2023-10-04 14:38 | PC.NURSE ---
Notified EMS pt is ready to return to [facility]
[2023-10-04 15:08] VITALS: BP 115/72; PULSE 50; RESP 16; TEMP 36.6; O2SAT 95
== END 2023-10-04 15:09 ==
PROVIDERS: Emergency Provider Emergency Medicine
DX: S01.81XA Laceration without foreign body of other part of head, initial encounter (principal); S80.01XA Contusion of right knee, initial encounter; S80.02XA Contusion of left knee, initial encounter; S80.11XA Contusion of right lower leg, initial encounter; F03.90 Unspecified dementia, unspecified severity, without behavioral disturbance, psychotic disturbance, mood disturbance, and anxiety; F17.210 Nicotine dependence, cigarettes, uncomplicated; E04.1 Nontoxic single thyroid nodule; W18.30XA Fall on same level, unspecified, initial encounter
CPT/HCPCS: 70450; 71045; 72125; 72170; 72192; 73562; 73590; 99285

== ENCOUNTER 2023-10-14 13:06 | Outpatient (CLI) | payer MEDICARE, MEDICAID, SELFPAY ==
--- NOTE | 2023-10-14 13:07 | US_ITS ---
FINAL REPORT CLINICAL HISTORY: new left thyroid nodule seen on CT cervical spine COMPARISON: None FINDINGS: THYROID ULTRASOUND: The right lobe of the thyroid measures 1.9 x 1.1 x 1.3 cm in size. There are several small nodules in the right lobe, the largest measuring 8 x 5 x 4 mm in size, spongiform, a TI-RADS category 1 nodule. The left lobe of the thyroid measures 3.4 x 1.7 x 1.4 cm in size. There is a dominant nodule in the lower pole of the left thyroid gland, measuring 18 x 16 x 12 mm in size, with punctate calcification, solid, hypoechoic, a TI-RADS category 5 nodule. The isthmus of the thyroid measures 2.7 mm in thickness without evidence of focal mass. IMPRESSION: Dominant nodule in the left lobe of the thyroid gland, as described a TI-RADS category 5 nodule. This TI-RADS category suggest ultrasound-guided needle biopsy for further evaluation. Reviewed, Interpreted and Dictated by Amrik Moore III, MD Transcribed by Yvette Matos Authenticated and [facility]
== END 2023-10-14 23:59 ==
PROVIDERS: PCP Internal Medicine; Visit Provider Nurse Practitioner Family
DX: E04.1 Nontoxic single thyroid nodule (principal)
CPT/HCPCS: 76536

== ENCOUNTER 2023-10-21 09:07 | Outpatient (CLI) | payer MEDICARE, MEDICAID, SELFPAY ==
--- NOTE | 2023-10-21 09:07 | US_ITS ---
FINAL REPORT CLINICAL HISTORY: Thyroid nodule FINDINGS: Ultrasound guided thyroid biopsy. HISTORY: Thyroid mass. Attending radiologist: Dr. Berg Physician Rustic Fence Builder: Torin Perez PA-C PROCEDURE: After informed consent was obtained and a time-out was performed, the patient was prepped and draped in usual sterile fashion over the left neck. Utilizing local anesthesia and sterile technique with a 25-gauge needle, access to lesion was obtained. Three passes were made under direct ultrasound guidance. The patient received no conscious sedation. The patient tolerated procedure well and left the department in good condition. IMPRESSION: Status post ultrasound guided biopsy of thyroid without immediate complication. Films reviewed , interpreted and dictated by Dr. Berg. Transcribed by Lance Perez PA-C. Reviewed, Interpreted and Dictated by Ulysses Berg MD Transcribed by SANTIAGO Wilkerson Authenticated and [facility]
== END 2023-10-21 23:59 ==
LOC: RAD 09:07
PROVIDERS: PCP Internal Medicine; Visit Provider Internal Medicine
DX: E04.1 Nontoxic single thyroid nodule (principal)
CPT/HCPCS: 10005; 76536; 76942

== ENCOUNTER 2024-01-25 20:43 | Emergency (ER) | payer MEDICARE, MEDICAID, SELFPAY ==
[2024-01-25 20:43] VITALS: BP 151/67; PULSE 63; RESP 20; TEMP 37; O2SAT 95; BMI 29.9
--- NOTE | 2024-01-25 20:48 | ED_ITS ---
<Statement entered by Phyllis Rg MD - 01/25/24 23:02> I was consulted by the FLYNN, and we discussed the complexity of the problems being addressed. I approved the treatment and management plan for this patient's care in the emergency department, thus performing a substantive portion of the medical decision making. Phyllis Rg MD, ELIZABET, FACEP Discharge Plan Disposition Patient Disposition: Xfer SNF Condition: Good Prescriptions Prescriptions: No Action donepezil 10 mg tablet 10 mg PO DAILY albuterol sulfate [Ventolin HFA] 90 mcg/actuation HFA aerosol inhaler 2 puff IH Q6HP PRN (Reason: Shortness Of Breath) metoprolol succinate 25 mg tablet extended release 24 hr 12.5 mg PO DAILY Qty: 30 5RF acetaminophen 500 mg tablet 500 mg PO Q4HP PRN (Reason: Mild Pain (Scale Score 1-4)) Gaviscon 95-358 mg/15 mL suspension 30 ml PO .q4hrs PRN loperamide 2 mg capsule 2 mg PO QID PRN (Reason: Diarrhea) Rx Instructions: administer after each loose stool until symptoms controlled; do not exceed 8 mg per 24 hrs Robafen DM 5-50 mg/5 mL liquid 10 ml PO Q6H PRN (Reason: cough/congestion) acetaminophen [Acetaminophen Extra Strength] 500 mg tablet 500 mg PO TID cranberry extract 425 mg capsule 425 mg PO DAILY Rx Instructions: administer with a meal multivitamin Tablet 1 tab PO DAILY lorazepam [Ativan] 1 mg tablet 1 mg PO TID Qty: 90 0RF risperidone 0.5 mg tablet 0.5 mg PO BID levofloxacin 500 mg tablet 500 mg PO DAILY 7 Days Qty: 7 0RF gabapentin 600 mg tablet 600 mg PO BID Qty: 60 2RF atorvastatin 40 MG tablet 40 mg PO DAILY aspirin 81 MG tablet,chewable 81 mg PO DAILY fluoxetine 40 mg capsule 40 mg PO DAILY bethanechol chloride 25 mg tablet 25 mg PO TID memantine 28 mg capsule,sprinkle,ER 24hr 28 mg PO DAILY docusate sodium 100 mg Capsule 100 mg PO BID ondansetron 4 mg Tablet,Disintegrating 4 mg PO Q6HP PRN (Reason: Nausea And Vomiting) Referrals Follow up/Referrals: Chip Clark DO [Primary Care Provider] - See instructions Activity Restrictions/Add. Instructions Additional Instructions/Restrictions: Follow-up with your PCP return to ER as needed for any worsening signs or symptoms including intractable headache tractable nausea vomiting or change in level of consciousness as needed. Clinical Impressions Clinical Impression: Fall Discharge ED Provider: Phyllis Rg General Adult HPI General Chief complaint: Fall Stated complaint: fell out of wheelchair at 2014, hit head on door Time Seen by Provider: 01/25/24 20:48 History of Present Illness HPI narrative: Patient presents from her detention facility after falling out of her wheelchair. Patient at baseline has dementia and is a poor historian. Repor tedly patient fell out of her wheelchair striking her head in an unknown fashion against a doorway. She did not lose consciousness and apparently has no apparent injury although patient cannot give a reliable history. Related Data Home Medications Medication Instructions Recorded Confirmed donepezil 10 mg tablet 10 mg PO DAILY Memory 01/02/20 01/12/24 atorvastatin 40 mg tablet 40 mg PO DAILY Cholesterol 01/24/20 01/12/24 aspirin 81 mg chewable tablet 81 mg PO DAILY Heart health 04/07/20 01/12/24 albuterol sulfate 90 mcg/actuation 2 puff inhalation Q6HP PRN 01/29/22 01/12/24 aerosol inhaler (Ventolin HFA) Shortness Of Breath bethanechol chloride 25 mg tablet 25 mg PO TID Urinary Retention 07/23/23 01/12/24 fluoxetine 40 mg capsule 40 mg PO DAILY Mood 07/23/23 01/12/24 memantine 28 mg capsule 28 mg PO DAILY Memory 07/23/23 01/12/24 sprinkle,extended release 24hr docusate sodium 100 mg capsule 100 mg PO BID Constipation 07/24/23 01/12/24 ondansetron 4 mg disintegrating 4 mg PO Q6HP PRN Nausea And 07/24/23 01/12/24 tablet Vomiting acetaminophen 500 mg tablet 500 mg PO Q4HP PRN Mild Pain 08/06/23 01/12/24 (Scale Score 1-4) acetaminophen 500 mg tablet 500 mg PO TID 08/06/23 01/12/24 (Acetaminophen Extra Strength) aluminum hydrox-magnesium carb 95 30 ml PO .q4hrs PRN 08/06/23 01/12/24 mg-358 mg/15 mL oral suspension (Gaviscon) cranberry extract 425 mg capsule 425 mg PO DAILY 08/06/23 01/12/24 dextromethorphan 5 mg-guaifenesin 10 ml PO Q6H PRN cough/congestion 08/06/23 01/12/24 50 mg/5 mL oral liquid (Robafen DM) loperamide 2 mg capsule 2 mg PO QID PRN Diarrhea 08/06/23 01/12/24 multivitamin 1 tab PO DAILY 08/06/23 01/12/24 risperidone 0.5 mg tablet 0.5 mg PO BID Mood 10/19/23 01/12/24 Previous Rx's Medication Instructions Recorded metoprolol succinate 25 mg 12.5 mg (1/2 x 25 mg) PO DAILY 01/29/22 tablet,extended release 24 hr High blood pressure #30 tabs lorazepam 1 mg tablet (Ativan) 1 mg PO TID Anxiety #90 tabs 09/10/23 levofloxacin 500 mg tablet 500 mg PO DAILY 7 days #7 tabs 10/20/23 gabapentin 600 mg tablet 600 mg PO BID #60 tabs 12/11/23 Allergies Allergy/AdvReac Type Severity Reaction Status Date / Time diphtheria toxoid,fluid Allergy Unknown Unknown Verified 01/05/24 14:38 [DIPHTHERIA TOXOID,FLUID] allergy reaction Penicillins [PENICILLINS] Allergy Unknown Unknown Verified 01/05/24 14:38 allergy reaction Sulfa (Sulfonamide Allergy Unknown Unknown Verified 01/05/24 14:38 Antibiotics) allergy [SULFA (SULFONAMIDE reaction ANTIBIOTICS)] tetanus and diphtheria Allergy Unknown Unknown Verified 01/05/24 14:38 toxoids allergy [TETANUS & DIPHTHERIA reaction TOXOIDS] codeine Allergy Unknown Verified 01/05/24 14:38 allergy reaction morphine Allergy Unknown Verified 01/05/24 14:38 allergy reaction PFSH [facility] Disclaimer: The information contained in this section may have been updated after the patient was seen, as this information can be updated by other users. Medical History Bilateral primary osteoarthritis of hip Cerebral aneurysm, nonruptured Vitamin B12 deficiency anemia, unspecified Anxiety disorder, unspecified Dementia in other diseases classified elsewhere, unspecified severity, with other behavioral disturbance Other dislocation of left shoulder joint, initial encounter Pathological fracture, left shoulder, initial encounter for fracture Bipolar disorder, current episode mixed, unspecified Obesity (BMI 30.0-34.9) Lumbar radicular pain Adrenal mass, left AAA (abdominal aortic aneurysm) without rupture Diverticulosis Tobacco use Surgical History History of laparotomy Social History Smoking Status: Former smoker tobacco type: cigarettes packs per day: 1 alcohol intake: never substance use type: denies use current occupational status: disabled Travel in the last 8 weeks: None household members: other housing: assisted living facility current occupational exposures/hazards: No caffeine: Yes ROS Obtained: Yes Systems reviewed as appropriate & no additional complaints except as documented Physical Exam General General appearance: alert and in no apparent distress Head Head exam: atraumatic and normal inspection Eye Eye exam: Present normal appearance, PERRL and EOMI ENT ENT exam: Present normal exam and normal oropharynx Neck Neck exam: Present normal inspection and full ROM; Absent tenderness Chest Chest inspection: Present normal inspection and symmetric chest wall rise Respiratory Respiratory exam: Present normal lung sounds bilaterally Cardiovascular Cardiovascular exam: Present regular rate and normal rhythm Abdominal Exam Abdominal exam: Present soft and normal bowel sounds; Absent tenderness Extremities Exam Extremities exam: Present normal inspection and full ROM Back Exam Back exam: Present normal inspection and full ROM; Absent tenderness Neurological Exam Neurological exam: Present alert and CN II-XII intact; Absent oriented X3 (Pa tient is only oriented to self) Psychiatric Psychiatric exam: Present normal affect (Baseline) and normal mood (Baseline) Skin Skin exam: Present warm and dry Medical Decision Making Medical Records Medical records reviewed: Yes I reviewed the patient's medical records. Nico Inquiry Pt receiving controlled substance: No Vital Signs: 01/25/24 20:43 Temperature 98.6 F Temperature Source Oral Pulse Rate [Right Radial] 63 Respiratory Rate 20 Blood Pressure [Right Arm] 151/67 H Blood Pressure Mean [Right Arm] 95 02 Sat by Pulse Oximetry 95 Oxygen Delivery Method Room Air Orders (Tests/Meds): ORDERS Category Date Time Status CT cervical spine wo con Stat Cat Scan 01/25/24 21:[address] head/brain wo con Stat Cat Scan 01/25/24 21:08 Completed Medical Decision Narrative: In summary patient is a 78-year-old female who presents to the emergency department for evaluation of possible head injury after a fall out of her wheelchair. Patient is hemodynamically stable upon arrival, febrile. Physical exam is unremarkable and nonfocal however patient is unreliable historian she has no focal neurologic deficits all of her extremities are intact grossly to exam with full range of motion and patient patient is oriented only to self but is awake and interactive. Differential diagnosis includes contusion versus intracranial hemorrhage versus fracture of the skull or C-spine etc. Initial workup will be conducted with CT scans of the head and neck. Initial interventions include offering the patient nonsteroidal medications however she denies any pain. Initial workup reviewed by me and my informal review of her CT scan shows. Upon repeat evaluation patient continues to be at her baseline with no neurologic deficits. Given this patient is appropriate for discharge back to her detention facility. Critical Care Critical Care Time Critical Care Time: No
--- NOTE | 2024-01-25 21:08 | CT_ITS ---
PROCEDURE INFORMATION: Exam: CT Head Without Contrast Exam date and time: 01/25/2024 9:27 PM Age: 78 years old Clinical indication: Injury or trauma; Other: Pain after fall; Additional info: Trauma, critical injury suspected TECHNIQUE: Imaging protocol: Computed tomography of the head without contrast. Radiation optimization: All CT scans at this facility use at least one of these dose optimization techniques: automated exposure control; mA and/or kV adjustment per patient size (includes targeted exams where dose is matched to clinical indication); or iterative reconstruction. COMPARISON: CT HEAD/BRAIN WO CON 10/04/2023 12:36 PM FINDINGS: Brain: No evidence for intracranial hemorrhage, mass lesions or acute stroke. Intracranial vascular calcifications. Mild small vessel ischemic change in the periventricular white matter. Small old right external capsule lacunar infarcts similar to 10/04/2023. Cerebral ventricles: No ventriculomegaly. Pituitary gland and sella: Negative Paranasal sinuses: Visualized sinuses are unremarkable. No fluid levels. Mastoid air cells: Visualized mastoid air cells are well aerated. Orbital cavities: Bilateral cataract extractions. 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 Soft tissues: Unremarkable. Vasculature: Right cavernous and supraclinoid internal carotid artery indwelling Pipeline stent. Other findings: Mild generalized atrophy. IMPRESSION: 1. No evidence for intracranial hemorrhage, mass lesions or acute stroke. 2. Intracranial vascular calcifications. 3. Mild generalized atrophy. 4. Mild small vessel ischemic change in the periventricular white matter. 5. Right cavernous and supraclinoid internal carotid artery indwelling Pipeline stent. 6. Small old right external capsule lacunar infarcts similar to 10/04/2023. 7. 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
--- NOTE | 2024-01-25 21:08 | CT_ITS ---
PROCEDURE INFORMATION: Exam: CT Cervical Spine Without Contrast Exam date and time: 01/25/2024 9:29 PM Age: 78 years old Clinical indication: Injury or trauma; Other: Pain after fall; Additional info: Trauma, critical injury suspected TECHNIQUE: Imaging protocol: Computed tomography of the cervical spine without contrast. Radiation optimization: All CT scans at this facility use at least one of these dose optimization techniques: automated exposure control; mA and/or kV adjustment per patient size (includes targeted exams where dose is matched to clinical indication); or iterative reconstruction. COMPARISON: CT CERVICAL SPINE WO CON 10/04/2023 12:37 PM FINDINGS: Bones: Spine alignment is normal. No fracture or bone destruction. Severe osteopenia. Subtle fractures may be missed. Multilevel degenerative disc disease at all cervical levels with disc space narrowing and small disc osteophyte complexes. [id number] multilevel facet arthropathy. Cervical left vertebral calcifications. Brain: Intracranial vascular calcifications. Lungs: Lung apices are normal. Vasculature: Carotid calcifications. Indwelling right cavernous and supraclinoid internal carotid pipeline stent. Soft tissues: Unremarkable. IMPRESSION: 1. Spine alignment is normal. 2. No fracture or bone destruction. 3. Severe osteopenia. Subtle fractures may be missed. 4. Multilevel degenerative disc disease at all cervical levels with disc space narrowing and small disc osteophyte complexes. 5. [id number] multilevel facet arthropathy. 6. Intracranial vascular calcifications. 7. Carotid calcifications. 8. Cervical left vertebral calcifications. 9. Indwelling right cavernous and supraclinoid internal carotid pipeline stent.
[2024-01-25 22:30] VITALS: BP 125/75; PULSE 79; RESP 15; TEMP 36.8; O2SAT 98
== END 2024-01-25 22:38 ==
PROVIDERS: Emergency Provider Student in an Organized Health Care Education/Training Program; PCP Internal Medicine
DX: Z04.3 Encounter for examination and observation following other accident (principal); W05.0XXA Fall from non-moving wheelchair, initial encounter
CPT/HCPCS: 70450; 72125; 99285

== ENCOUNTER 2024-05-30 15:02 | Inpatient (IN) | payer MEDICARE, MEDICAID, SELFPAY ==
[2024-05-30] VITALS (7 sets, daily range): BP systolic 101–150; BP diastolic 67–95; PULSE 51–59; RESP 9–20; TEMP 36.2–36.7; O2SAT 84–99; BMI 32.5; BMI 32.1
--- NOTE | 2024-05-30 15:00 | HMH.EDGENADL ---
Discharge Plan Disposition Patient Disposition: Admitted Condition: Fair Clinical Impressions Clinical Impression: Gross hematuria, Bladder mass Discharge ED Provider: Andrea Dunham General Adult HPI <SANTIAGO Veras - Last Filed: 05/30/24 23:17> General Chief complaint: Vaginal Bleeding Stated complaint: Vaginal Bleeding Time Seen by Provider: 05/30/24 15:07 History of Present Illness HPI narrative: Patient presents from a local alf for initially a chief complaint of vaginal bleeding. Patient is a resident of a local alf and was reportedly found with fresh blood from her vagina. She was sent for evaluation. Patient at baseline has dementia and is unaware of any complaints. She currently is sleeping soundly due to disrupted sleep wake cycles. She apparently was up all night. 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 She has no known history of vaginal bleeding previously. Most of the information comes from her daughter who I spoke with by phone. She denies any fever chills hemoptysis hematochezia melena nausea vomiting diarrhea. Related Data Home Medications ?Medication ?Instructions ?Recorded ?Confirmed donepezil 10 mg tablet 10 mg PO DAILY 01/02/20 05/31/24 atorvastatin 40 mg tablet 40 mg PO DAILY Cholesterol 01/24/20 05/31/24 albuterol sulfate 90 mcg/actuation 2 puff inhalation Q6HP PRN 01/29/22 05/31/24 aerosol inhaler (Ventolin HFA) Shortness Of Breath bethanechol chloride 25 mg tablet 25 mg PO TID Urinary Retention 07/23/23 05/31/24 fluoxetine 40 mg capsule 40 mg PO DAILY Anxiety 07/23/23 05/31/24 memantine 28 mg capsule 28 mg PO DAILY 07/23/23 05/31/24 sprinkle,extended release 24hr docusate sodium 100 mg capsule 100 mg PO BID 07/24/23 05/31/24 acetaminophen 500 mg tablet 500 mg PO TID 08/06/23 05/31/24 cranberry extract 425 mg capsule 850 mg PO DAILY 08/06/23 05/31/24 loperamide 2 mg capsule 2 mg PO QID PRN Diarrhea 08/06/23 05/31/24 multivitamin 1 tab PO DAILY 08/06/23 05/31/24 risperidone 0.5 mg tablet 0.5 mg PO BID Mood 10/19/23 05/31/24 Previous Rx's ?Medication ?Instructions ?Recorded gabapentin 600 mg tablet 600 mg PO BID #60 tabs 02/22/24 aspirin 81 mg chewable tablet 81 mg PO DAILY #90 tabs 05/05/24 (Aspirin Childrens) lorazepam 1 mg tablet 1 mg PO BID #60 tabs 05/19/24 Allergies Allergy/AdvReac Type Severity Reaction Status Date / Time diphtheria toxoid,fluid Allergy Unknown Unknown Verified 04/18/24 10:15 [DIPHTHERIA TOXOID,FLUID] allergy reaction Penicillins [PENICILLINS] Allergy Unknown Unknown Verified 04/18/24 10:15 allergy reaction Sulfa (Sulfonamide Allergy Unknown Unknown Verified 04/18/24 10:15 Antibiotics) allergy [SULFA (SULFONAMIDE reaction ANTIBIOTICS)] tetanus and diphtheria Allergy Unknown Unknown Verified 04/18/24 10:15 toxoids allergy [TETANUS & DIPHTHERIA reaction TOXOIDS] codeine Allergy Unknown Verified 04/18/24 10:15 allergy reaction morphine Allergy Unknown Verified 04/18/24 10:15 allergy reaction <SANTIAGO Veras - Last Filed: 05/30/24 23:17> ROS Obtained: Yes Systems reviewed as appropriate & no additional complaints except as documented Physical Exam <SANTIAGO Veras - Last Filed: 05/30/24 23:17> General General appearance: in no apparent distress Respiratory Respiratory exam: Present normal lung sounds bilaterally Cardiovascular Cardiovascular exam: Present regular rate Bimanual exam: Present other (Patient has fresh blood and clot in the vaginal introitus) Neurological Exam Neurological exam: Present alert (Patient is now alert after her nap but not oriented to place or circumstance) and CN II-XII intact Medical Decision Making <SANTIAGO Veras - Last Filed: 05/30/24 23:17> Medical Records Medical records reviewed: Yes I reviewed the patient's medical records. Screening: Per USPSTF and CDC recommendations, given the prevalence of disease in our region, it is our hospital?s policy to screen for HIV and viral Hepatitis for all patients aged 18 and over and those with ongoing risk factors. Nico Inquiry Pt receiving controlled substance: No Vital Signs: 05/30/24 15:02 05/30/24 15:30 05/30/24 16:00 Temperature 98.0 F Temperature Source Axillary Pulse Rate 56 L 53 L Pulse Rate [Right Radial] 51 L Respiratory Rate 20 9 L Blood Pressure 121/83 107/69 L Blood Pressure [Right Arm] 121/77 Blood Pressure Mean [Right Arm] 91 Blood Pressure Source [Right Arm] 02 Sat by Pulse Oximetry 97 84 L 96 Oxygen Delivery Method Room Air Room Air 05/30/24 16:30 05/30/24 17:00 05/30/24 22:20 Temperature 97.1 F L Temperature Source Oral Pulse Rate 59 L 51 L Pulse Rate [Right Radial] 56 L Respiratory Rate 10 L 12 16 Blood Pressure 121/74 101/67 L Blood Pressure [Right Arm] 150/95 H Blood Pressure Mean [Right Arm] 113 Blood Pressure Source [Right Arm] Automatic Cuff 02 Sat by Pulse Oximetry 95 94 L 99 Oxygen Delivery Method Room Air Room Air Room Air 05/30/24 22:23 Temperature 98.0 F Temperature Source Pulse Rate 55 L Pulse Rate [Right Radial] Respiratory Rate 20 Blood Pressure 110/70 Blood Pressure [Right Arm] Blood Pressure Mean [Right Arm] Blood Pressure Source [Right Arm] 02 Sat by Pulse Oximetry Oxygen Delivery Method Room Air Lab Data Lab results reviewed: Yes I reviewed the patient's lab results. Lab Results 05/30/24 13:30: Urine Color Red, Urine Appearance Turbid, Urine pH 8.0, Ur Specific [place] 1.010, Urine Protein 3+ A, Urine Glucose (UA) 1+, Urine Ketones 3+, Urine Blood 3+ A, Urine Nitrate Positive, Urine Bilirubin 3+ A, Urine Urobilinogen >=8.0, Ur Leukocyte Esterase 3+ A, Urine RBC Tntc, Urine WBC 3-5, Ur Squamous Epith Cells None, Urine Bacteria Trace 05/30/24 15:00: WBC 7.3, RBC 3.88 L, Hgb 12.1 L, Hct 39.7, MCV 102.2 H, MCH 31.2, MCHC 30.5 L, RDW 14.6, Plt Count 156, MPV 10.3, Neut % (Auto) 62.1, Lymph % (Auto) 25.4, Pratt % (Auto) 7.9, Eos % (Auto) 3.7, Baso % (Auto) 0.9, Neut # (Auto) 4.6, Lymph # (Auto) 1.9, Pratt # (Auto) 0.6, Eos # (Auto) 0.3, Baso # (Auto) 0.1, PT 10.9, INR 0.97, Sodium 140, Potassium 4.9, Chloride 106, Carbon Dioxide 28, Anion Gap 10.9, BUN 23 H, Creatinine 0.90, Estimated Creat Clear 61, Estimated GFR 61, Est GFR ( Amer) 73, Glucose 94, Calcium 9.5, Total Bilirubin 0.6, AST 53 H, ALT 39, Alkaline Phosphatase 167 H, Total Protein 7.2, Albumin 4.0, Globulin 3.2, Albumin/Globulin Ratio 1.3 05/31/24 00:04: Hgb 12.0 L, Hct 39.9 05/31/24 05:46: POC Glucose 77 05/31/24 06:38: WBC 8.1, RBC 3.43 L, Hgb 10.8 L, Hct 34.7 L, MCV 101.2 H, MCH 31.5 H, MCHC 31.1 L, RDW 14.7, Plt Count 166, MPV 9.4, Neut % (Auto) 70.4, Lymph % (Auto) 19.1, Pratt % (Auto) 6.4, Eos % (Auto) 3.1, Baso % (Auto) 0.9, Neut # (Auto) 5.7, Lymph # (Auto) 1.6, Pratt # (Auto) 0.5, Eos # (Auto) 0.3, Baso # (Auto) 0.1, Sodium 141, Potassium 4.1, Chloride 108 H, Carbon Dioxide 28, Anion Gap 9.1, BUN 19 H, Creatinine 0.80, Estimated Creat Clear 60, Estimated GFR 69, Est GFR ( Amer) 84, Glucose 74 D, Lactate 0.7, Calcium 9.4, TSH 3.15, Cortisol 12.8 05/31/24 06:38 05/31/24 06:38 Orders (Tests/Meds): ED MEDICATIONS Discontinued Medications Generic Name Dose Route Start Last Admin Trade Name Freq PRN Reason Stop Dose Admin Acetaminophen 650 mg 05/30/24 21:56 05/31/24 01:43 Acetaminophen 325mg Tab PO 06/29/24 21:55 650 mg Q4HP PRN Administration Fever or Mild Pain (1-3) Aspirin 81 mg 05/31/24 09:00 05/31/24 08:26 Aspirin 81mg Chewable Tablet PO 06/30/24 08:59 Not Given DAILY [facility] Atorvastatin Calcium 40 mg 05/31/24 21:00 Atorvastatin 40mg Tablet PO 06/30/24 20:59 HS [facility] Belladonna Alkaloids/Opium 1 each 05/30/24 19:31 05/30/24 20:09 Belladonna & Opium (30mg) Supp. #15a RC 05/30/24 19:32 Not Given ONCE ONE Haloperidol Lactate 5 mg 05/30/24 19:46 05/30/24 20:10 Haloperidol Lactate 5 Mg/Ml Vial IV 05/30/24 19:47 5 mg ONCE ONE Administration Lactated Ringer's 1,000 mls @ 999 mls/hr 05/30/24 15:05 05/30/24 15:12 Lactated Ringer's 1000 Ml Bag IV 05/30/24 16:05 999 mls/hr .Q1H1M ONE Administration Ceftriaxone Sodium 2 gm/ 100 mls @ 200 mls/hr 05/30/24 17:46 05/30/24 18:06 Sodium Chloride IV 05/30/24 18:15 200 mls/hr ONCE ONE Administration Lactated Ringer's 1,000 mls @ 50 mls/hr 05/30/24 22:15 05/30/24 23:16 Lactated Ringer's 1000 Ml Bag IV 06/29/24 22:14 50 mls/hr .Q20H MANE Administration Cefepime HCl 2 gm/ Sodium 100 mls @ 200 mls/hr 05/30/24 23:45 05/31/24 08:19 Chloride IV 06/09/24 23:44 200 mls/hr Q8H MANE Administration Meropenem 1 gm/ Sodium 100 mls @ 100 mls/hr 05/31/24 10:15 05/31/24 11:02 Chloride IV 06/10/24 10:14 100 mls/hr Q8H MANE Administration Vancomycin/PEG/NADA/Lysine/Water 1.5 gm in 300 mls @ 150 mls/hr 05/31/24 10:30 05/31/24 12:19 Vancomycin 1.5gm/300ml (Peg) Premix IV 05/31/24 12:29 150 mls/hr ONCE ONE Administration Vancomycin/PEG/NADA/Lysine/Water 1.25 gm in 250 mls @ 125 mls/hr 06/01/24 10:30 Vancomycin 1.25gm/250ml (Peg) Premix IV 06/11/24 10:29 Q24H MANE Norepinephrine/Dextrose 8 mg in 250 mls @ 3.75 mls/hr 05/31/24 11:31 Norepinephrine 8mg/250ml-D5w Premix IV 06/30/24 11:30 .Q24H MANE Protocol 2 MCG/MIN Sodium Chloride 1,000 mls @ 125 mls/hr 05/31/24 13:00 Sod Chlor 0.9% 1000ml Bag IV 05/31/24 20:59 .Q8H ONE Iopamidol 75 ml 05/30/24 18:08 05/30/24 18:09 Iopamidol-370 (76%);100ml Bottle IV 05/30/24 18:09 75 ml ONCE ONE Administration Miscellaneous 1 each 05/31/24 10:15 05/31/24 12:20 Vancomycin Consult Request NOTAPPLIC 06/30/24 10:14 Not Given CONSULT PHARMACY [facility] Nicotine 21 mg 05/31/24 00:04 Nicotine 21mg/24hr Patch TD 06/30/24 00:03 DAILYP PRN Nicotine Cravings Ondansetron HCl 4 mg 05/30/24 21:56 Ondansetron 4mg/2ml Vial IV 06/29/24 21:55 Q8HP PRN Nausea Sodium Chloride 10 ml 05/30/24 18:08 05/30/24 18:09 Sodium Chloride 0.9% 10ml Syr (Rad Only) IV 06/29/24 18:07 10 ml NEEDED PRN Administration Maintain IV Site Sodium Chloride 10 ml 05/30/24 22:02 Sodium Chloride 0.9% 10ml Flush Syringe IV 06/29/24 22:01 NEEDED PRN Maintain IV Site ORDERS Category Date Time Status CT abdomen pelvis w con Stat Cat Scan 05/30/24 17:[address] chest wo con Stat Cat Scan 05/31/24 10:21 Completed Basic Metabolic Panel AMLAB Lab 05/31/24 06:38 Completed CBC w/Auto Diff [Complete Blood Count Auto Diff] Stat Lab 05/30/24 15:00 Completed CMP [Comprehensive Metabolic Panel] Stat Lab 05/30/24 15:00 Completed Complete Blood Count Auto Diff AMLAB Lab 05/31/24 06:38 Completed Cortisol Stat Lab 05/31/24 06:38 Completed Hemoglobin and Hematocrit Routine Lab 05/30/24 23:51 Completed INR [Prothrombin Time INR] Stat Lab 05/30/24 15:00 Completed Lactic Acid Routine Lab 05/31/24 06:38 Completed POC Glucose,Bedside Routine Lab 05/31/24 05:46 Completed TSH [Thyroid Stimulating Hormone] Routine Lab 05/31/24 06:38 Completed UA [Urinalysis and Microscopic] Stat Lab 05/30/24 13:30 Completed Blood Culture Routine Micro 05/30/24 23:59 Results Urine Culture Stat Micro 05/30/24 13:30 Completed US Pelvic Stat Ultrasound 05/30/24 15:05 Completed Medical Decision Narrative: In summary patient is a 78-year-old female who presents to the emergency department for evaluation of initially what appeared to be vaginal bleeding. Patient is hemodynamically stable upon arrival, afebrile. Physical exam reveals no abdominal tenderness but she does have fresh blood in the vaginal introitus with remainder physical exam nonfocal. Differential diagnosis includes dysfunctional uterine bleeding versus mass. Initial workup will be conducted with hematologic labs transvaginal ultrasound. Initial interventions include crystalloid bolus initial workup reviewed by me shows that her hemoglobin is currently stable at 12 however transvaginal ultrasound shows in fact that the blood is coming from the urethra and on exam shows a very thick-walled bladder with what appears to be clot and a mass seen by Dr. Dunham. Given this I had an interactive discussion with the patient's daughter who is also her power of reservation clerk and she requested transfer to [facility] or see [facility]. Given that I had an interactive discussion initially with [facility] however they have no beds and would be waitlisted. Given that I had an interactive discussion with the [facility] transfer center and urology recommended follow-up in clinic in 1 month. Given that I had interactive discussion with Dr. Marquez behind the electromedical service engineer at the alf who stated that he would attempt to contact urology in [place] tomorrow where the daughter works. However I then attempted to irrigate the bladder as she started leaking blood and urine around the small Mccoy catheter. I then placed a 16 Turkmen three-way bladder irrigation catheter and was able to initiate continuous bladder irrigation. Unfortunately we do not have a true hematuria catheter available to place. I was unable to aspirate clot but through manipulation able to get CBI going. Given that had another interactive discussion with the [facility] and she has been waitlisted and has been accepted by Dr. Evans. I also spoke with urology who recommended continuing CBI. Given that I had interactive discussion with our hospitalist who is agreed for admission until bed availability at [facility]. Thus he will be admitted for further evaluation and care. <Andrea Dunham MD - Last Filed: 06/01/24 15:25> Vital Signs: 05/30/24 15:02 05/30/24 15:30 05/30/24 16:00 Temperature 98.0 F Temperature Source Axillary Pulse Rate 56 L 53 L Pulse Rate [Right Radial] 51 L Respiratory Rate 20 9 L Blood Pressure 121/83 107/69 L Blood Pressure [Right Arm] 121/77 Blood Pressure Mean [Right Arm] 91 Blood Pressure Source [Right Arm] 02 Sat by Pulse Oximetry 97 84 L 96 Oxygen Delivery Method Room Air Room Air 05/30/24 16:30 05/30/24 17:00 05/30/24 22:20 Temperature 97.1 F L Temperature Source Oral Pulse Rate 59 L 51 L Pulse Rate [Right Radial] 56 L Respiratory Rate 10 L 12 16 Blood Pressure 121/74 101/67 L Blood Pressure [Right Arm] 150/95 H Blood Pressure Mean [Right Arm] 113 Blood Pressure Source [Right Arm] Automatic Cuff 02 Sat by Pulse Oximetry 95 94 L 99 Oxygen Delivery Method Room Air Room Air Room Air 05/30/24 22:23 Temperature 98.0 F Temperature Source Pulse Rate 55 L Pulse Rate [Right Radial] Respiratory Rate 20 Blood Pressure 110/70 Blood Pressure [Right Arm] Blood Pressure Mean [Right Arm] Blood Pressure Source [Right Arm] 02 Sat by Pulse Oximetry Oxygen Delivery Method Room Air Lab Data Lab Results 05/30/24 13:30: Urine Color Red, Urine Appearance Turbid, Urine pH 8.0, Ur Specific [place] 1.010, Urine Protein 3+ A, Urine Glucose (UA) 1+, Urine Ketones 3+, Urine Blood 3+ A, Urine Nitrate Positive, Urine Bilirubin 3+ A, Urine Urobilinogen >=8.0, Ur Leukocyte Esterase 3+ A, Urine RBC Tntc, Urine WBC 3-5, Ur Squamous Epith Cells None, Urine Bacteria Trace 05/30/24 15:00: WBC 7.3, RBC 3.88 L, Hgb 12.1 L, Hct 39.7, MCV 102.2 H, MCH 31.2, MCHC 30.5 L, RDW 14.6, Plt Count 156, MPV 10.3, Neut % (Auto) 62.1, Lymph % (Auto) 25.4, Pratt % (Auto) 7.9, Eos % (Auto) 3.7, Baso % (Auto) 0.9, Neut # (Auto) 4.6, Lymph # (Auto) 1.9, Pratt # (Auto) 0.6, Eos # (Auto) 0.3, Baso # (Auto) 0.1, PT 10.9, INR 0.97, Sodium 140, Potassium 4.9, Chloride 106, Carbon Dioxide 28, Anion Gap 10.9, BUN 23 H, Creatinine 0.90, Estimated Creat Clear 61, Estimated GFR 61, Est GFR ( Amer) 73, Glucose 94, Calcium 9.5, Total Bilirubin 0.6, AST 53 H, ALT 39, Alkaline Phosphatase 167 H, Total Protein 7.2, Albumin 4.0, Globulin 3.2, Albumin/Globulin Ratio 1.3 05/31/24 00:04: Hgb 12.0 L, Hct 39.9 05/31/24 05:46: POC Glucose 77 05/31/24 06:38: WBC 8.1, RBC 3.43 L, Hgb 10.8 L, Hct 34.7 L, MCV 101.2 H, MCH 31.5 H, MCHC 31.1 L, RDW 14.7, Plt Count 166, MPV 9.4, Neut % (Auto) 70.4, Lymph % (Auto) 19.1, Pratt % (Auto) 6.4, Eos % (Auto) 3.1, Baso % (Auto) 0.9, Neut # (Auto) 5.7, Lymph # (Auto) 1.6, Pratt # (Auto) 0.5, Eos # (Auto) 0.3, Baso # (Auto) 0.1, Sodium 141, Potassium 4.1, Chloride 108 H, Carbon Dioxide 28, Anion Gap 9.1, BUN 19 H, Creatinine 0.80, Estimated Creat Clear 60, Estimated GFR 69, Est GFR ( Amer) 84, Glucose 74 D, Lactate 0.7, Calcium 9.4, TSH 3.15, Cortisol 12.8 Orders (Tests/Meds): ED MEDICATIONS Discontinued Medications Generic Name Dose Route Start Last Admin Trade Name Freq PRN Reason Stop Dose Admin Acetaminophen 650 mg 05/30/24 21:56 05/31/24 01:43 Acetaminophen 325mg Tab PO 06/29/24 21:55 650 mg Q4HP PRN Administration Fever or Mild Pain (1-3) Aspirin 81 mg 05/31/24 09:00 05/31/24 08:26 Aspirin 81mg Chewable Tablet PO 06/30/24 08:59 Not Given DAILY [facility] Atorvastatin Calcium 40 mg 05/31/24 21:00 Atorvastatin 40mg Tablet PO 06/30/24 20:59 HS [facility] Belladonna Alkaloids/Opium 1 each 05/30/24 19:31 05/30/24 20:09 Belladonna & Opium (30mg) Supp. #15a RC 05/30/24 19:32 Not Given ONCE ONE Haloperidol Lactate 5 mg 05/30/24 19:46 05/30/24 20:10 Haloperidol Lactate 5 Mg/Ml Vial IV 05/30/24 19:47 5 mg ONCE ONE Administration Lactated Ringer's 1,000 mls @ 999 mls/hr 05/30/24 15:05 05/30/24 15:12 Lactated Ringer's 1000 Ml Bag IV 05/30/24 16:05 999 mls/hr .Q1H1M ONE Administration Ceftriaxone Sodium 2 gm/ 100 mls @ 200 mls/hr 05/30/24 17:46 05/30/24 18:06 Sodium Chloride IV 05/30/24 18:15 200 mls/hr ONCE ONE Administration Lactated Ringer's 1,000 mls @ 50 mls/hr 05/30/24 22:15 05/30/24 23:16 Lactated Ringer's 1000 Ml Bag IV 06/29/24 22:14 50 mls/hr .Q20H MANE Administration Cefepime HCl 2 gm/ Sodium 100 mls @ 200 mls/hr 05/30/24 23:45 05/31/24 08:19 Chloride IV 06/09/24 23:44 200 mls/hr Q8H MANE Administration Meropenem 1 gm/ Sodium 100 mls @ 100 mls/hr 05/31/24 10:15 05/31/24 11:02 Chloride IV 06/10/24 10:14 100 mls/hr Q8H MANE Administration Vancomycin/PEG/NADA/Lysine/Water 1.5 gm in 300 mls @ 150 mls/hr 05/31/24 10:30 05/31/24 12:19 Vancomycin 1.5gm/300ml (Peg) Premix IV 05/31/24 12:29 150 mls/hr ONCE ONE Administration Vancomycin/PEG/NADA/Lysine/Water 1.25 gm in 250 mls @ 125 mls/hr 06/01/24 10:30 Vancomycin 1.25gm/250ml (Peg) Premix IV 06/11/24 10:29 Q24H MANE Norepinephrine/Dextrose 8 mg in 250 mls @ 3.75 mls/hr 05/31/24 11:31 Norepinephrine 8mg/250ml-D5w Premix IV 06/30/24 11:30 .Q24H MANE Protocol 2 MCG/MIN Sodium Chloride 1,000 mls @ 125 mls/hr 05/31/24 13:00 Sod Chlor 0.9% 1000ml Bag IV 05/31/24 20:59 .Q8H ONE Iopamidol 75 ml 05/30/24 18:08 05/30/24 18:09 Iopamidol-370 (76%);100ml Bottle IV 05/30/24 18:09 75 ml ONCE ONE Administration Miscellaneous 1 each 05/31/24 10:15 05/31/24 12:20 Vancomycin Consult Request NOTAPPLIC 06/30/24 10:14 Not Given CONSULT PHARMACY [facility]E Nicotine 21 mg 05/31/24 00:04 Nicotine 21mg/24hr Patch TD 06/30/24 00:03 DAILYP PRN Nicotine Cravings Ondansetron HCl 4 mg 05/30/24 21:56 Ondansetron 4mg/2ml Vial IV 06/29/24 21:55 Q8HP PRN Nausea Sodium Chloride 10 ml 05/30/24 18:08 05/30/24 18:09 Sodium Chloride 0.9% 10ml Syr (Rad Only) IV 06/29/24 18:07 10 ml NEEDED PRN Administration Maintain IV Site Sodium Chloride 10 ml 05/30/24 22:02 Sodium Chloride 0.9% 10ml Flush Syringe IV 06/29/24 22:01 NEEDED PRN Maintain IV Site ORDERS Category Date Time Status CT abdomen pelvis w con Stat Cat Scan 05/30/24 17:[address] chest wo con Stat Cat Scan 05/31/24 10:21 Completed Basic Metabolic Panel AMLAB Lab 05/31/24 06:38 Completed CBC w/Auto Diff [Complete Blood Count Auto Diff] Stat Lab 05/30/24 15:00 Completed CMP [Comprehensive Metabolic Panel] Stat Lab 05/30/24 15:00 Completed Complete Blood Count Auto Diff AMLAB Lab 05/31/24 06:38 Completed Cortisol Stat Lab 05/31/24 06:38 Completed Hemoglobin and Hematocrit Routine Lab 05/30/24 23:51 Completed INR [Prothrombin Time INR] Stat Lab 05/30/24 15:00 Completed Lactic Acid Routine Lab 05/31/24 06:38 Completed POC Glucose,Bedside Routine Lab 05/31/24 05:46 Completed TSH [Thyroid Stimulating Hormone] Routine Lab 05/31/24 06:38 Completed UA [Urinalysis and Microscopic] Stat Lab 05/30/24 13:30 Completed Blood Culture Routine Micro 05/30/24 23:59 Results Urine Culture Stat Micro 05/30/24 13:30 Completed US Pelvic Stat Ultrasound 05/30/24 15:05 Completed Medical Decision Narrative: In summary patient is a 78-year-old female who presents to the emergency department for evaluation of initially what appeared to be vaginal bleeding. Patient is hemodynamically stable upon arrival, afebrile. Physical exam reveals no abdominal tenderness but she does have fresh blood in the vaginal introitus with remainder physical exam nonfocal. Differential diagnosis includes dysfunctional uterine bleeding versus mass. Initial workup will be conducted with hematologic labs transvaginal ultrasound. Initial interventions include crystalloid bolus initial workup reviewed by me shows that her hemoglobin is currently stable at 12 however transvaginal ultrasound shows in fact that the blood is coming from the urethra and on exam shows a very thick-walled bladder with what appears to be clot and a mass seen by Dr. Dunham. Given this I had an interactive discussion with the patient's daughter who is also her power of reservation clerk and she requested transfer to [facility] or see [facility]. Given that I had an interactive discussion initially with [facility] however they have no beds and would be waitlisted. Given that I had an interactive discussion with the [facility] center and urology recommended follow-up in clinic in 1 month. Given that I had interactive discussion with Dr. Marquez behind the electromedical service engineer at the alf who stated that he would attempt to contact urology in [place] tomorrow where the daughter works. However I then attempted to irrigate the bladder as she started leaking blood and urine around the small Mccoy catheter. I then placed a 16 Turkmen three-way bladder irrigation catheter and was able to initiate continuous bladder irrigation. Unfortunately we do not have a true hematuria catheter available to place. I was unable to aspirate clot but through manipulation able to get CBI going. Given that had another interactive discussion with the [facility] and she has been waitlisted and has been accepted by Dr. Evans. I also spoke with urology who recommended continuing CBI. Given that I had interactive discussion with our hospitalist who is agreed for admission until bed availability at [facility]. Thus he will be admitted for further evaluation and care. I was consulted by the FLYNN, and we discussed the complexity of the problems being addressed. I approved the treatment and management plan for this patient's care in the Emergency Department, thus performing a substantive portion of the medical decision making. Andrae Dunham MD Critical Care <SANTIAGO Veras - Last Filed: 05/30/24 23:17> Critical Care Time Critical Care Time: No
--- NOTE | 2024-05-30 15:05 | US_ITS ---
PROCEDURE INFORMATION: Exam: US Pelvis, Complete, Non-Obstetric Exam date and time: 05/30/2024 3:18 PM Age: 78 years old Clinical indication: Bladder; Other: Blood; Additional info: Vaginal bleeding TECHNIQUE: Imaging protocol: Transabdominal pelvic nonobstetric ultrasound. Complete exam. Real time ultrasound with image documentation. COMPARISON: CT [facility]ONY PELVIS 10/04/2023 1:38 PM FINDINGS: Uterus: The uterus is not visualized. Right ovary/adnexa: The right ovary is not seen due to overlying bowel gas. Left ovary/adnexa: The left ovary is not seen due to overlying bowel gas. Intraperitoneal space: No intraperitoneal fluid. Urinary bladder: There is a Mccoy catheter in place within a collapsed urinary bladder. The urinary bladder is somewhat thick-walled IMPRESSION: 1. Collapsed urinary bladder with Mccoy catheter in place. Bladder wall is not well evaluated but underlying mass cannot be excluded. 2. Nonvisualization of the uterus and ovaries.
[2024-05-30] MEDS: LACTATED RINGERS 1000ML 1,000 ML 999 ML IV (15:12)
[2024-05-30 15:14] LABS: Chloride 106 mmol/L (98-107); Potassium 4.9 mmoL/L (3.5-5.1); Sodium 140 mmol/L (136-145)
[2024-05-30 15:16] LABS: Basophils # 0.1 K/mm3 (0-0.2); Basophils % 0.9 % (0.1-2.0); Eosinophils # 0.3 K/mm3 (0.0-0.4); Eosinophils % 3.7 % (0.1-12.0); Hematocrit 39.7 % (37.0-47.0); Hemoglobin 12.1 g/dL (12.2-16.2); Lymphocytes # 1.9 K/mm3 (0.7-4.5); Lymphocytes % 25.4 % (10-50); Mean Corpuscular HGB Conc 30.5 g/dL (31.8-35.4); Mean Corpuscular Hemoglobin 31.2 pg (27.0-31.2); Mean Corpuscular Volume 102.2 fl (81-99); Mean Platelet Volume 10.3 fl (7.4-10.4); Monocytes # 0.6 K/mm3 (0.1-1.0); Monocytes % 7.9 % (1.7-9.3); Neutrophils # 4.6 K/mm3 (1.8-7.8); Neutrophils % 62.1 % (37.0-80.0); Platelet Count 156 K/mm3 (142-424); Red Blood Count 3.88 M/mm3 (4.20-5.40); Red Cell Distribution Width 14.6 % (11.5-17.5); White Blood Count 7.3 K/mm3 (4.8-10.8)
[2024-05-30 15:17] LABS: Alanine Aminotransferase 39 U/L (12-78); Albumin/Globulin Ratio 1.3 (1.1-1.8); Alkaline Phosphatase 167 U/L (38-126); Anion Gap 10.9 mEq/L (5-15); Aspartate Amino Transferase 53 U/L (14-36); Bilirubin,Total 0.6 mg/dl (0.2-1.3); Blood Urea Nitrogen 23 mg/dl (7-17); Carbon Dioxide 28 mmol/L (22.0-30.0); Creatinine Clearance Estimated 61 mL/min (50-200); Estimated Glomerular Filt Rate 61 ml/min (>60); GFR (African American) 73 ML/MIN (>60); Globulin 3.2 g/dL (1.3-3.2); Total Protein,Serum 7.2 g/dl (6.3-8.2)
[2024-05-30 15:18] LABS: Calcium 9.5 mg/dl (8.4-10.2); Glucose 94 mg/dl (74-100)
[2024-05-30 15:20] LABS: INR 0.97 (0.9-1.1); Prothrombin Time 10.9 seconds (10.1-12.5)
[2024-05-30 15:56] LABS: Microscopic, Urine URINE MICROSCOPIC (MICROSCOPIC)
--- NOTE | 2024-05-30 16:03 | PC.NURSE ---
LVM on patient POA (daughter) and then contact patient son in law, pt daughter did call back
--- NOTE | 2024-05-30 16:08 | PC.NURSE ---
ER PA on the phone with daughter
--- NOTE | 2024-05-30 16:13 | PC.NURSE ---
PT family wishes for patient to be transferred to [facility] for further eval
--- NOTE | 2024-05-30 16:18 | PC.NURSE ---
Called [facility] about possible transfer of the pt. Advised that they have no beds at this time. CR
[2024-05-30 16:21] LABS: Appearance,Urine TURBID (Clear); Blood, Urine 3+ (Negative); Color,Urine RED (Yellow); Glucose,Urine (UA) 1+ (Negative); Ketones,Urine 3+ (Negative); Leukocyte Esterase,Urine 3+ (Negative); Nitrate,Urine POSITIVE (Negative); Protein,Urine 3+ (Negative); Urobilinogen,Urine >=8.0 EU/dl (0.2)
--- NOTE | 2024-05-30 16:22 | PC.NURSE ---
Called [facility] about possible transfer of the pt. [facility] to call back with information. TOMASA
[2024-05-30 16:24] LABS: Bilirubin,Urine 3+ (Negative)
--- NOTE | 2024-05-30 16:26 | PC.NURSE ---
[facility] call back, speaking with Torin at this time. CR
[2024-05-30 16:29] LABS: Bacteria,Urine Trace /lpf; RBC,Urine TNTC #/hpf (0-3)
--- NOTE | 2024-05-30 16:59 | PC.NURSE ---
Called [facility] about possible transfer. Awaiting callback. CR
--- NOTE | 2024-05-30 17:47 | CT_ITS ---
PROCEDURE INFORMATION: Exam: CT Abdomen And Pelvis With Contrast Exam date and time: 05/30/2024 6:04 PM Age: 78 years old Clinical indication: Other: Hematuria; Additional info: Gross hematuria, new TECHNIQUE: Imaging protocol: Computed tomography of the abdomen and pelvis with contrast. Radiation optimization: All CT scans at this facility use at least one of these dose optimization techniques: automated exposure control; mA and/or kV adjustment per patient size (includes targeted exams where dose is matched to clinical indication); or iterative reconstruction. Contrast material: ISOVUE; Contrast volume: 75 ml; Contrast route: IV; COMPARISON: CT BONY PELVIS 12/01/2023 13:38 FINDINGS: Tubes, catheters and devices: Urinary bladder is catheterized. Lungs: Mild scarring and atelectasis in the lower lungs. Coronary arteries: Coronary artery calcifications. Liver: Normal. No mass. Gallbladder and biliary ducts: Cholelithiasis. Pancreas: Normal. No ductal dilation. Spleen: Normal. No splenomegaly. Adrenal glands: Unchanged 2.5 cm left adrenal nodule. Unchanged 1.4 cm right adrenal nodule. Kidneys and ureters: Mild bilateral renal scarring. Stomach and bowel: Duodenal diverticula. Severe sigmoid diverticulosis without diverticulitis. Small bowel diverticulosis without diverticulitis. Appendix: No evidence of appendicitis. Intraperitoneal space: Unremarkable. No free air. No significant fluid collection. Vasculature: The arteries demonstrate severe atherosclerotic disease. Unruptured 3 cm infrarenal abdominal aortic aneurysm extending to the bifurcation but not involving the common iliac arteries. Lymph nodes: Unremarkable. No enlarged lymph nodes. Urinary bladder: Urinary bladder diverticula. Irregular urinary bladder wall thickening with surrounding edema. Reproductive: Status post hysterectomy. Bones/joints: Status post total bilateral hip arthroplasty. The hardware appears intact. Old bilateral rib fractures. The lumbar spine demonstrates moderate degenerative changes at multiple levels. Soft tissues: Small anterior abdominal wall fat containing hernias. There is a healed anterior abdominal wall incision. IMPRESSION: 1. Irregular urinary bladder wall thickening with surrounding edema. Infection versus malignancy would be most likely. 2. Cholelithiasis.
--- NOTE | 2024-05-30 17:56 | PC.NURSE ---
PT TO CT
[2024-05-30] MEDS: CEFTRIAXONE SODIUM 2 GM in 0.9 % SODIUM CHLORIDE 100 ML IV (18:06)
[2024-05-30] MEDS: SODIUM CHLORIDE 0.9% 10ML SYR (RAD ONLY) 10 ML IV (18:09)
[2024-05-30] MEDS: IOPAMIDOL-370 (76%);100ML BOTTLE 75 ML IV (18:09)
[2024-05-30] MEDS: HALOPERIDOL LACTATE 5 MG/ML VIAL IV (20:10)
--- NOTE | 2024-05-30 20:45 | PC.NURSE ---
spoke to [facility] re transfer to med surg floor, awaiting return call
--- NOTE | 2024-05-30 21:38 | PC.NURSE ---
pt is admitted per hospital medicine, supervisor [employer] made aware, and bed request placed
--- NOTE | 2024-05-30 21:48 | PC.NURSE ---
follow up call placed to [facility], hospitalist busy at this time, they will call when available
--- NOTE | 2024-05-30 22:06 | PC.NURSE ---
called report to michelle kaplan on 2nd floor and answered all questions
--- NOTE | 2024-05-30 22:11 | EXP.HP ---
History of Present Illness *Admission Date: 05/30/24 *Reason for visit:: Gross hematuria requiring continuous bladder irrigation *History of present illness: Mary Bae is a 78-year-old female with a medical history significant for CAD s/p SHELTON, PAD, AAA, chronic venous insufficiency, current tobacco use, prior UTIs, dementia presented to the ED from nursing facility what was thought to be vaginal bleeding but instead turned out to be hematuria. Patient was somnolent during interview around midnight, but alert and responding to most questions. Patient states symptoms of gross hematuria began yesterday. She states she has had these episodes before that self resolved but cannot recall when. She also endorses several week onset of dysuria, but has not told the nursing facility. Endorses suprapubic pain. Workup in the ED significant for UA positive for 3+ protein, blood, bilirubin, leukocyte esterase, nitrite. WBC 7.3, hemoglobin 12.1. CT abdomen/pelvis revealed irregular urinary bladder wall thickening with surrounding edema and malignancy cannot be ruled out. Mccoy was initially placed however patient continues to have gross hematuria with blood clots. Mccoy was replaced with continuous bladder irrigation. Patient is currently waitlisted at [facility] for urology services as this facility does not have inpatient urology. Case was discussed with ED provider and decision was made to admit patient for persistent gross hematuria requiring continuous bladder irrigation. Meds Home Medications and Allergies Home Medications ?Medication ?Instructions ?Recorded ?Confirmed ?Type donepezil 10 mg tablet 10 mg PO DAILY 01/02/20 05/31/24 History atorvastatin 40 mg tablet 40 mg PO DAILY Cholesterol 01/24/20 05/31/24 History albuterol sulfate 90 mcg/actuation 2 puff inhalation Q6HP PRN 01/29/22 05/31/24 History aerosol inhaler (Ventolin HFA) Shortness Of Breath bethanechol chloride 25 mg tablet 25 mg PO TID Urinary Retention 07/23/23 05/31/24 History fluoxetine 40 mg capsule 40 mg PO DAILY Anxiety 07/23/23 05/31/24 History memantine 28 mg capsule 28 mg PO DAILY 07/23/23 05/31/24 History sprinkle,extended release 24hr docusate sodium 100 mg capsule 100 mg PO BID 07/24/23 05/31/24 History acetaminophen 500 mg tablet 500 mg PO TID 08/06/23 05/31/24 History cranberry extract 425 mg capsule 850 mg PO DAILY 08/06/23 05/31/24 History loperamide 2 mg capsule 2 mg PO QID PRN Diarrhea 08/06/23 05/31/24 History multivitamin 1 tab PO DAILY 08/06/23 05/31/24 History risperidone 0.5 mg tablet 0.5 mg PO BID Mood 10/19/23 05/31/24 History gabapentin 600 mg tablet 600 mg PO BID #60 tabs 02/22/24 05/31/24 Rx aspirin 81 mg chewable tablet 81 mg PO DAILY #90 tabs 05/05/24 05/31/24 Rx (Aspirin Childrens) lorazepam 1 mg tablet 1 mg PO BID #60 tabs 05/19/24 05/31/24 Rx New Prescriptions to Start Prescriptions: Allergies Allergy/AdvReac Type Severity Reaction Status Date / Time diphtheria toxoid,fluid Allergy Unknown Unknown Verified 04/18/24 10:15 [DIPHTHERIA TOXOID,FLUID] allergy reaction Penicillins [PENICILLINS] Allergy Unknown Unknown Verified 04/18/24 10:15 allergy reaction Sulfa (Sulfonamide Allergy Unknown Unknown Verified 04/18/24 10:15 Antibiotics) allergy [SULFA (SULFONAMIDE reaction ANTIBIOTICS)] tetanus and diphtheria Allergy Unknown Unknown Verified 04/18/24 10:15 toxoids allergy [TETANUS & DIPHTHERIA reaction TOXOIDS] codeine Allergy Unknown Verified 04/18/24 10:15 allergy reaction morphine Allergy Unknown Verified 04/18/24 10:15 allergy reaction Exam Data for Last 24 hours Vital signs and Labs for Last 24 Hours: Temp Pulse Resp BP Pulse Ox O2 Del Method 98.0 F 51 L 12 101/67 L 94 L Room Air 05/30/24 15:02 05/30/24 17:00 05/30/24 17:00 05/30/24 17:00 05/30/24 17:00 05/30/24 17:00 Laboratory Results - last 24 hr 05/30/24 13:30: Urine Color Red, Urine Appearance Turbid, Urine pH 8.0, Ur Specific [place] 1.010, Urine Protein 3+ A, Urine Glucose (UA) 1+, Urine Ketones 3+, Urine Blood 3+ A, Urine Nitrate Positive, Urine Bilirubin 3+ A, Urine Urobilinogen >=8.0, Ur Leukocyte Esterase 3+ A, Urine RBC Tntc, Urine WBC 3-5, Ur Squamous Epith Cells None, Urine Bacteria Trace 05/30/24 15:00: WBC 7.3, RBC 3.88 L, Hgb 12.1 L, Hct 39.7, MCV 102.2 H, MCH 31.2, MCHC 30.5 L, RDW 14.6, Plt Count 156, MPV 10.3, Neut % (Auto) 62.1, Lymph % (Auto) 25.4, [place] % (Auto) 7.9, Eos % (Auto) 3.7, Baso % (Auto) 0.9, Neut # (Auto) 4.6, Lymph # (Auto) 1.9, [place] # (Auto) 0.6, Eos # (Auto) 0.3, Baso # (Auto) 0.1, PT 10.9, INR 0.97, Sodium 140, Potassium 4.9, Chloride 106, Carbon Dioxide 28, Anion Gap 10.9, BUN 23 H, Creatinine 0.90, Estimated Creat Clear 61, Estimated GFR 61, Est GFR ( Amer) 73, Glucose 94, Calcium 9.5, Total Bilirubin 0.6, AST 53 H, ALT 39, Alkaline Phosphatase 167 H, Total Protein 7.2, Albumin 4.0, Globulin 3.2, Albumin/Globulin Ratio 1.3 I & O for Last 24 hours: Intake & Output 05/27/24 05/28/24 05/29/24 05/30/24 23:59 23:59 23:59 23:59 Weight 83.189 kg Constitutional Constitutional: no acute distress *Routine HEENT Exam Head: Present normocephalic Eye: Present EOMI and PERRL ENT: Present mucous membranes moist *Routine Neck Exam Neck: Present supple; Absent lymphadenopathy *Routine Respiratory Exam Respiratory: Present wheezes; Absent CTA bilaterally Comments: Mild bilateral wheezing. *Routine Cardiovascular Exam Cardiovascular: Present RRR *Routine Abdominal Exam Abdominal: Present soft, normoactive bowel sounds and tenderness Comments: Moderate suprapubic tenderness to palpation. *Routine Rectal Exam Rectal:: deferred *Routine Genitalia Exam Genitalia:: deferred *Routine Extremities Exam Extremities: Absent cyanosis, clubbing or edema *Routine Skin Exam Skin: Present warm; Absent rash *Routine Neurological Exam Neurological: Present alert and oriented X3 Assessment and Plan *Assessment and plan (1) Gross hematuria: Status: Acute Category: Medical Code(s): R31.0 - Gross hematuria (2) Bladder mass: Status: Acute Category: Medical Code(s): N32.89 - Other specified disorders of bladder (3) Urinary tract infection: Status: Resolved Qualifiers: Hematuria presence: without hematuria Urinary tract infection type: acute cystitis Qualified Code(s): N30.00 - Acute cystitis without hematuria Category: Medical Code(s): N39.0 - Urinary tract infection, site not specified Plan Mary Bae is a 78-year-old female with a medical history significant for CAD s/p SHELTON, PAD, AAA, chronic venous insufficiency, current tobacco use, prior UTIs, dementia presented to the ED from nursing facility what was thought to be vaginal bleeding but instead turned out to be hematuria. Patient was somnolent during interview around midnight, but alert and responding to most questions. Patient states symptoms of gross hematuria began yesterday. She states she has had these episodes before that self resolved but cannot recall when. She also endorses several week onset of dysuria, but has not told the nursing facility. Endorses suprapubic pain. Workup in the ED significant for UA positive for 3+ protein, blood, bilirubin, leukocyte esterase, nitrite. WBC 7.3, hemoglobin 12.1. CT abdomen/pelvis revealed irregular urinary bladder wall thickening with surrounding edema and malignancy cannot be ruled out. Mccoy was initially placed however patient continues to have gross hematuria with blood clots. Mccoy was replaced with continuous bladder irrigation. Patient is currently waitlisted at [facility] for urology services as this facility does not have inpatient urology. Case was discussed with ED provider and decision was made to admit patient for persistent gross hematuria requiring continuous bladder irrigation. #Gross hematuria #Bladder wall thickening #UTI ? Patient reports several week onset of dysuria, and 2-day onset of gross hematuria. ? Has had UTIs in the past, and also states that she has had gross hematuria in the past that self resolved. ? Currently hemodynamically stable. No concerns for sepsis at this time. ? Initial UA positive for 3+ protein, blood, bilirubin, leukocyte esterase, nitrite. ? Previous urine cultures revealed multidrug-resistant organisms, most recent 05/09/2023 showed Citrobacter farmeri resistant to ceftriaxone but sensitive to cefepime. ? CT abdomen/pelvis revealed irregular urinary bladder wall thickening with surrounding edema and malignancy cannot be ruled out. ? Given that patient has a longstanding current smoker, malignancy cannot be ruled out. However, there does seem to be a superimposed UTI at the very least. ? Cefepime day 1/7. Ceftriaxone given in the ED but patient previously resistant. ? Follow-up urine cultures. ? Gross hematuria improvement with continuous bladder irrigation. Plan to discontinue in the morning if resolved. ? Patient will need close follow-up with urology upon discharge. Chronic problems: #CAD, PAD ? Aspirin, statin. #Current tobacco smoker ? Nicotine patch as needed. #Dementia ? Resume home medications once reconciled. #Obesity ? Complicates care for patient. CODE STATUS: Full code DVT prophylaxis: SCDs.
--- NOTE | 2024-05-30 22:19 | PC.NURSE ---
pt arrived to floor at this time
[2024-05-30] MEDS: LACTATED RINGERS 1000ML 1,000 ML 50 ML IV (23:16)
[2024-05-31] VITALS (12 sets, daily range): BP systolic 94–150; BP diastolic 45–95; PULSE 56–80; RESP 15–18; TEMP 33.7–37.3; O2SAT 91–99
[2024-05-31] MEDS: CEFEPIME HCL 2 GM in 0.9 % SODIUM CHLORIDE 100 ML IV ×2 (00:08→08:19)
[2024-05-31 00:27] LABS: Hematocrit 39.9 % (37.0-47.0)
[2024-05-31] MEDS: ACETAMINOPHEN 325MG TAB 650 MG PO (01:43)
[2024-05-31 05:57] LABS: POC Glucose,Bedside 77 (70-110)
[2024-05-31 07:16] LABS: Basophils # 0.1 K/mm3 (0-0.2); Basophils % 0.9 % (0.1-2.0); Eosinophils # 0.3 K/mm3 (0.0-0.4); Eosinophils % 3.1 % (0.1-12.0); Hematocrit 34.7 % (37.0-47.0); Hemoglobin 10.8 g/dL (12.2-16.2); Lymphocytes # 1.6 K/mm3 (0.7-4.5); Lymphocytes % 19.1 % (10-50); Mean Corpuscular HGB Conc 31.1 g/dL (31.8-35.4); Mean Corpuscular Hemoglobin 31.5 pg (27.0-31.2); Mean Corpuscular Volume 101.2 fl (81-99); Mean Platelet Volume 9.4 fl (7.4-10.4); Monocytes # 0.5 K/mm3 (0.1-1.0); Monocytes % 6.4 % (1.7-9.3); Neutrophils # 5.7 K/mm3 (1.8-7.8); Neutrophils % 70.4 % (37.0-80.0); Platelet Count 166 K/mm3 (142-424); Red Blood Count 3.43 M/mm3 (4.20-5.40); Red Cell Distribution Width 14.7 % (11.5-17.5); White Blood Count 8.1 K/mm3 (4.8-10.8)
[2024-05-31 07:40] LABS: Lactic Acid 0.7 mmol/L (0.7-2.1)
[2024-05-31 07:41] LABS: Chloride 108 mmol/L (98-107); Potassium 4.1 mmoL/L (3.5-5.1); Sodium 141 mmol/L (136-145)
[2024-05-31 07:44] LABS: Anion Gap 9.1 mEq/L (5-15); Blood Urea Nitrogen 19 mg/dl (7-17); Calcium 9.4 mg/dl (8.4-10.2); Carbon Dioxide 28 mmol/L (22.0-30.0); Creatinine Clearance Estimated 60 mL/min (50-200); Estimated Glomerular Filt Rate 69 ml/min (>60); GFR (African American) 84 ML/MIN (>60); Glucose 74 mg/dl (74-100)
--- NOTE | 2024-05-31 07:51 | SW/DCPLANNER ---
This patient currently resides at [facility] level of care. I will continue to follow up w/ Colleen until patient is medically stable for discharge. Discharge date is unknown at this time.
[2024-05-31 08:14] LABS: Thyroid Stimulating Hormone 3.15 uIU/mL (0.465-4.68)
--- NOTE | 2024-05-31 08:57 | P.CONPHA_ITS ---
Pharmacy Intervention Comments: Home medication list verified using MAR from [facility].
--- NOTE | 2024-05-31 10:21 | CT_ITS ---
FINAL REPORT TECHNIQUE: Axial images were obtained through the chest without contrast. Reconstructed images were obtained and reviewed. This study was performed with techniques to keep radiation doses as low as reasonably achievable (ALARA). Individualized dose reduction techniques using automated exposure control or adjustment of mA and/or kV according to the patient's size were employed. CLINICAL HISTORY: hypothermia, hypotension FINDINGS: There is a low-attenuation focus in the lower pole of the left thyroid lobe measuring 1.6 cm. There is dense vascular calcification of the aortic arch. The heart size is normal. There is no pericardial or pleural effusion. No suspicious infiltrate or nodule identified. Pleural and parenchymal scarring is identified. There are advanced changes of osteoarthritis of both shoulders. Limited images of the upper abdomen reveal sludge in the gallbladder. There are bilateral adrenal masses. Left adrenal mass measures 2.1 cm with a mean attenuation value 11 Hounsfield units, probably related to adenoma. IMPRESSION: Chronic changes in the lungs. Gallbladder sludge. Bilateral adrenal adenomas. Reviewed, Interpreted and Dictated by Ulysses Berg MD Transcribed by Lucina Retana Authenticated and [facility]
--- NOTE | 2024-05-31 10:21 | P.CONPHA_ITS ---
Pharmacy Consult Date: 05/31/24 Time: 10:21 Referring provider: DR. MCNAMARA Reason for Consult:: VANCOMYCIN DOSING CONSULT Allergies Allergy/AdvReac Type Severity Reaction Status Date / Time diphtheria toxoid,fluid Allergy Unknown Unknown Verified 04/18/24 10:15 [DIPHTHERIA TOXOID,FLUID] allergy reaction Penicillins [PENICILLINS] Allergy Unknown Unknown Verified 04/18/24 10:15 allergy reaction Sulfa (Sulfonamide Allergy Unknown Unknown Verified 04/18/24 10:15 Antibiotics) allergy [SULFA (SULFONAMIDE reaction ANTIBIOTICS)] tetanus and diphtheria Allergy Unknown Unknown Verified 04/18/24 10:15 toxoids allergy [TETANUS & DIPHTHERIA reaction TOXOIDS] codeine Allergy Unknown Verified 04/18/24 10:15 allergy reaction morphine Allergy Unknown Verified 04/18/24 10:15 allergy reaction Home Medications ?Medication ?Instructions ?Recorded ?Confirmed ?Type donepezil 10 mg tablet 10 mg PO DAILY 01/02/20 05/31/24 History atorvastatin 40 mg tablet 40 mg PO DAILY Cholesterol 01/24/20 05/31/24 History albuterol sulfate 90 mcg/actuation 2 puff inhalation Q6HP PRN 01/29/22 05/31/24 History aerosol inhaler (Ventolin HFA) Shortness Of Breath bethanechol chloride 25 mg tablet 25 mg PO TID Urinary Retention 07/23/23 05/31/24 History fluoxetine 40 mg capsule 40 mg PO DAILY Anxiety 07/23/23 05/31/24 History memantine 28 mg capsule 28 mg PO DAILY 07/23/23 05/31/24 History sprinkle,extended release 24hr docusate sodium 100 mg capsule 100 mg PO BID 07/24/23 05/31/24 History acetaminophen 500 mg tablet 500 mg PO TID 08/06/23 05/31/24 History cranberry extract 425 mg capsule 850 mg PO DAILY 08/06/23 05/31/24 History loperamide 2 mg capsule 2 mg PO QID PRN Diarrhea 08/06/23 05/31/24 History multivitamin 1 tab PO DAILY 08/06/23 05/31/24 History risperidone 0.5 mg tablet 0.5 mg PO BID Mood 10/19/23 05/31/24 History gabapentin 600 mg tablet 600 mg PO BID #60 tabs 02/22/24 05/31/24 Rx aspirin 81 mg chewable tablet 81 mg PO DAILY #90 tabs 05/05/24 05/31/24 Rx (Aspirin Childrens) lorazepam 1 mg tablet 1 mg PO BID #60 tabs 05/19/24 05/31/24 Rx New Prescriptions to Start Prescriptions: Height: 1.6 m Weight: 82.4 kg Laboratory Results:: Laboratory Results - last 24 hr 05/30/24 13:30: Urine Color Red, Urine Appearance Turbid, Urine pH 8.0, Ur Specific [place] 1.010, Urine Protein 3+ A, Urine Glucose (UA) 1+, Urine Ketones 3+, Urine Blood 3+ A, Urine Nitrate Positive, Urine Bilirubin 3+ A, Urine Urobilinogen >=8.0, Ur Leukocyte Esterase 3+ A, Urine RBC Tntc, Urine WBC 3-5, Ur Squamous Epith Cells None, Urine Bacteria Trace 05/30/24 15:00: WBC 7.3, RBC 3.88 L, Hgb 12.1 L, Hct 39.7, MCV 102.2 H, MCH 31.2, MCHC 30.5 L, RDW 14.6, Plt Count 156, MPV 10.3, Neut % (Auto) 62.1, Lymph % (Auto) 25.4, [place] % (Auto) 7.9, Eos % (Auto) 3.7, Baso % (Auto) 0.9, Neut # (Auto) 4.6, Lymph # (Auto) 1.9, [place] # (Auto) 0.6, Eos # (Auto) 0.3, Baso # (Auto) 0.1, PT 10.9, INR 0.97, Sodium 140, Potassium 4.9, Chloride 106, Carbon Dioxide 28, Anion Gap 10.9, BUN 23 H, Creatinine 0.90, Estimated Creat Clear 61, Estimated GFR 61, Est GFR ( Amer) 73, Glucose 94, Calcium 9.5, Total Bilirubin 0.6, AST 53 H, ALT 39, Alkaline Phosphatase 167 H, Total Protein 7.2, Albumin 4.0, Globulin 3.2, Albumin/Globulin Ratio 1.3 05/31/24 00:04: Hgb 12.0 L, Hct 39.9 05/31/24 05:46: POC Glucose 77 05/31/24 06:38: WBC 8.1, RBC 3.43 L, Hgb 10.8 L, Hct 34.7 L, MCV 101.2 H, MCH 31.5 H, MCHC 31.1 L, RDW 14.7, Plt Count 166, MPV 9.4, Neut % (Auto) 70.4, Lymph % (Auto) 19.1, [place] % (Auto) 6.4, Eos % (Auto) 3.1, Baso % (Auto) 0.9, Neut # (Auto) 5.7, Lymph # (Auto) 1.6, [place] # (Auto) 0.5, Eos # (Auto) 0.3, Baso # (Auto) 0.1, Sodium 141, Potassium 4.1, Chloride 108 H, Carbon Dioxide 28, Anion Gap 9.1, BUN 19 H, Creatinine 0.80, Estimated Creat Clear 60, Estimated GFR 69, Est GFR ( Amer) 84, Glucose 74 D, Lactate 0.7, Calcium 9.4, TSH 3.15 Medical History: Medical History Thyroid nodule 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 [place] Fracture of tubercle of left pubis Diastolic dysfunction Ambulatory dysfunction Peripheral arterial occlusive disease Bilateral primary osteoarthritis of hip Cerebral aneurysm, nonruptured Vitamin B12 deficiency anemia, unspecified Anxiety disorder, unspecified Dementia in other diseases classified elsewhere, unspecified severity, with other behavioral disturbance Bipolar disorder, current episode mixed, unspecified Obesity (BMI 30.0-34.9) Lumbar radicular pain Adrenal mass, left AAA (abdominal aortic aneurysm) without rupture Diverticulosis Tobacco use Assessment and Plan Assessment and plan all Dx Assessment and Plan for all problems:: Pharmacokinetic dosing service Objective: Age: 78 yo Serum creatinine: 0.8 mg/dL Height: 63.0 Inches Weight (kg): 82.4 Diagnosis: UTI Assessment: IBW (kg): 52.40 Dosing wt(kg): 82.4 Estimated Creatinine clearance (ml/min): 47.9 CRCL method: Cockcroft and Gault using ibw(default). Drug selected: Vancomycin Loading dose (mg): 1500 MG Vd (liters): 57.7 (factor used: 0.7 L/kg) Matti (hr-1): 0.044 Half life (hrs): 15.75 CLvanco=?? 2.539 L/hr Recommended dose: 1250 mg Interval: 24 hrs Infusion time (hrs): 2.0 Predicted peak (mcg/mL): 31.8 Predicted trough (mcg/mL): 12.08 Total body weight is being used for vancomycin dosing. Recommendations: Give Vancomycin 1250 mg q 24 hrs with an expected Cpeak of 31.8 mcg/ml and an expected Ctrough of 12.08 mcg/ml TO START 06/01/24, ONE TIME LOADING DOSE OF VANCOMYCIN 1500 MG IV GIVEN 05/31/24 AT 10:30 AUC 0-24 /KIAN Data: KIAN 0.5 mcg/mL:?? AUC/KIAN:? 984.6 KIAN 1.0 mcg/mL:?? AUC/KIAN:? 492.3 --------- KIAN 1.5 mcg/mL:?? AUC/KIAN:? 328.2 KIAN 2.0 mcg/mL:?? AUC/KIAN:? 246.2 Thank you for the consult
[2024-05-31] MEDS: MEROPENEM 1 GM in 0.9 % SODIUM CHLORIDE 100 ML IV (11:02)
--- NOTE | 2024-05-31 11:17 | PC.NURSE ---
Arrived in pt room due to tech notifying this RN of bp of 64/32. when arrived to room pt was difficult to arouse, requiring sternal rub to contribute to conversation. pt refused to open eyes. Reassessed BP in rt arm with a result of 69/45. assessed L arm with result of 74/47 and L forearm with result of 86/50. MD notified of pt condition. MD arrived to assess pt and gave verbal order to bolus 1L LR. pt asked if SOB and pt responded sometimes . BP was checked again with datascope with results: 81/59, 86/53, 86/27, 95/34 in varying locations including left upper arm, rt upper arm and left wrist. BP would not take on lower extremities. BP taken manually with result of 90/52. MD was in room for all these readings. MD gave verbal order to move pt to stepdown and scan bladder due to lack of urine output. MD inquired about code status and was made aware of Full Code status. Bladder scan complete showing 0-5ml. An additional IV was started in the RT AC. Legs were elevated and SCUDS applied. ABX hung per mar and pt switched to NS @ 125. Report given to YAMINI SHEEHAN.
[2024-05-31] MEDS: VANCOMYCIN/WATER FOR INJ (PEG) 1.5 GM/300 ML PIGGYBACK IV (12:19)
--- NOTE | 2024-05-31 13:15 | PC.NURSE ---
Received call that pt has bed at [facility]. Accepting MD is Kirby. Pt will go to room 105. Call back # [phone]
--- NOTE | 2024-05-31 13:37 | P.DS_ITS ---
General Admission date:: 05/31/24 HPI HPI HPI: Mary Bae is a 78-year-old female with a medical history significant for CAD s/p SHELTON, PAD, AAA, chronic venous insufficiency, current tobacco use, prior UTIs, dementia presented to the ED from nursing facility what was thought to be vaginal bleeding but instead turned out to be hematuria. Patient was somnolent during interview around midnight, but alert and responding to most questions. Patient states symptoms of gross hematuria began yesterday. She states she has had these episodes before that self resolved but cannot recall when. She also endorses several week onset of dysuria, but has not told the nursing facility. Endorses suprapubic pain. Workup in the ED significant for UA positive for 3+ protein, blood, bilirubin, leukocyte esterase, nitrite. WBC 7.3, hemoglobin 12.1. CT abdomen/pelvis revealed irregular urinary bladder wall thickening with surrounding edema and malignancy cannot be ruled out. Mccoy was initially placed however patient continues to have gross hematuria with blood clots. Mccoy was replaced with continuous bladder irrigation. Patient is currently waitlisted at [facility] for urology services as this facility does not have inpatient urology. Case was discussed with ED provider and decision was made to admit patient for persistent gross hematuria requiring continuous bladder irrigation. Hospital Course Hospital Course Hospital Course: Mary Bae is a 78-year-old female with a medical history significant for CAD s/p SHELTON, PAD, AAA, chronic venous insufficiency, current tobacco use, prior UTIs, dementia presented to the ED from nursing facility what was thought to be vaginal bleeding but instead turned out to be hematuria. Patient was somnolent during interview around midnight, but alert and responding to most questions. Patient states symptoms of gross hematuria began yesterday. She states she has had these episodes before that self resolved but cannot recall when. She also endorses several week onset of dysuria, but has not told the nursing facility. Endorses suprapubic pain. Workup in the ED significant for UA positive for 3+ protein, blood, bilirubin, leukocyte esterase, nitrite. WBC 7.3, hemoglobin 12.1. CT abdomen/pelvis revealed irregular urinary bladder wall thickening with surrounding edema and malignancy cannot be ruled out. Mccoy was initially placed however patient continues to have gross hematuria with blood clots. Mccoy was replaced with continuous bladder irrigation. Patient is currently waitlisted at [facility] for urology services as this facility does not have inpatient urology. Case was discussed with ED provider and decision was made to admit patient for persistent gross hematuria requiring continuous bladder irrigation. #Acute metabolic encephalopathy #UTI #Gross hematuria #Irregular bladder wall thickening concerning for malignancy ? Patient reported several week onset of dysuria, and 2-day onset of gross hematuria. ? Has had UTIs in the past, and also states that she has had gross hematuria in the past that self resolved. ? Initial UA positive for 3+ protein, blood, bilirubin, leukocyte esterase, nitrite. ? Previous urine cultures revealed multidrug-resistant organisms, most recent 05/09/2023 showed Citrobacter farmeri resistant to ceftriaxone but sensitive to cefepime. ? CT abdomen/pelvis revealed irregular urinary bladder wall thickening with surrounding edema and malignancy cannot be ruled out. ? Given that patient has a longstanding current smoker, malignancy cannot be ruled out. However, there does seem to be a superimposed UTI at the very least. ? However, overnight patient became hypothermic which was responsive to Van hugger that was able to be weaned in the morning. She also became hypotensive requiring aggressive IV fluid resuscitation, also improved. ? No leukocytosis to date. ? She also began having clear bladder irrigation and thus Mccoy was removed in the setting of UTI. Patient has not made much urine since then, but continues to have blood-tinged urine output. Bladder scan also did not reveal retention. Hemoglobin stable at 10.8. ? Broad-spectrum antibiotics with vancomycin, meropenem were started after patient became hypothermic, hypotensive overnight. Cefepime discontinued ? Preliminary urine cultures revealed significant gram-negative rods. Blood cultures have not resulted yet. ? Given decompensation in the setting of persistent gross hematuria in the se tting of possible underlying malignancy, hypothermia, hypotension decision was made to transfer patient to facility with inpatient urology service. ? Dr. Orr with [facility] graciously accepted patient for transfer. Patient is currently somnolent, but arousable and answers most questions appropriately. No focal neurological deficits. Chronic problems: #CAD, PAD ? Aspirin, statin. #Current tobacco smoker ? Nicotine patch as needed. #Dementia ? Resume home medications once reconciled. #Obesity ? Complicates care for patient. Exam Data for Last 24 hours Vital signs and Labs for Last 24 Hours: Temp Pulse Resp BP Pulse Ox O2 Del Method 99.2 F 69 18 95/54 L 93 L Room Air 05/31/24 12:00 05/31/24 13:00 05/31/24 13:00 05/31/24 13:00 05/31/24 13:00 05/31/24 13:00 Laboratory Results - last 24 hr 05/30/24 13:30: Urine Color Red, Urine Appearance Turbid, Urine pH 8.0, Ur Specific [place] 1.010, Urine Protein 3+ A, Urine Glucose (UA) 1+, Urine Ketones 3+, Urine Blood 3+ A, Urine Nitrate Positive, Urine Bilirubin 3+ A, Urine Urobilinogen >=8.0, Ur Leukocyte Esterase 3+ A, Urine RBC Tntc, Urine WBC 3-5, Ur Squamous Epith Cells None, Urine Bacteria Trace 05/30/24 15:00: WBC 7.3, RBC 3.88 L, Hgb 12.1 L, Hct 39.7, MCV 102.2 H, MCH 31.2, MCHC 30.5 L, RDW 14.6, Plt Count 156, MPV 10.3, Neut % (Auto) 62.1, Lymph % (Auto) 25.4, [place] % (Auto) 7.9, Eos % (Auto) 3.7, Baso % (Auto) 0.9, Neut # (Auto) 4.6, Lymph # (Auto) 1.9, [place] # (Auto) 0.6, Eos # (Auto) 0.3, Baso # (Auto) 0.1, PT 10.9, INR 0.97, Sodium 140, Potassium 4.9, Chloride 106, Carbon Dioxide 28, Anion Gap 10.9, BUN 23 H, Creatinine 0.90, Estimated Creat Clear 61, Estimated GFR 61, Est GFR ( Amer) 73, Glucose 94, Calcium 9.5, Total Bilirubin 0.6, AST 53 H, ALT 39, Alkaline Phosphatase 167 H, Total Protein 7.2, Albumin 4.0, Globulin 3.2, Albumin/Globulin Ratio 1.3 05/31/24 00:04: Hgb 12.0 L, Hct 39.9 05/31/24 05:46: POC Glucose 77 05/31/24 06:38: WBC 8.1, RBC 3.43 L, Hgb 10.8 L, Hct 34.7 L, MCV 101.2 H, MCH 31.5 H, MCHC 31.1 L, RDW 14.7, Plt Count 166, MPV 9.4, Neut % (Auto) 70.4, Lymph % (Auto) 19.1, [place] % (Auto) 6.4, Eos % (Auto) 3.1, Baso % (Auto) 0.9, Neut # (Auto) 5.7, Lymph # (Auto) 1.6, [place] # (Auto) 0.5, Eos # (Auto) 0.3, Baso # (Auto) 0.1, Sodium 141, Potassium 4.1, Chloride 108 H, Carbon Dioxide 28, Anion Gap 9.1, BUN 19 H, Creatinine 0.80, Estimated Creat Clear 60, Estimated GFR 69, Est GFR ( Amer) 84, Glucose 74 D, Lactate 0.7, Calcium 9.4, TSH 3.15 I & O for Last 24 hours: Intake & Output 05/28/24 05/29/24 05/30/24 05/31/24 23:59 23:59 23:59 23:59 Intake Total 7750 / 7750 2816 / 2816 Output Total 6000 / 6000 1750 / 1750 Balance 1750 / 1750 1066 / 1066 Weight 82.4 kg 82.4 kg Microbiology Reports for the Last 24 Hours: Microbiology 05/30/24 13:30 Urine,Clean Catch Urine Culture - Preliminary Gram Negative Rods Results Data Completed and Pending Labs on day of discharge: Labs from last 24 hours 05/31/24 05/31/24 05/31/24 06:38 05:46 00:04 WBC 8.1 RBC 3.43 L Hgb 10.8 L 12.0 L Hct 34.7 L 39.9 MCV 101.2 H MCH 31.5 H MCHC 31.1 L RDW 14.7 Plt Count 166 MPV 9.4 Neut % (Auto) 70.4 Lymph % (Auto) 19.1 [place] % (Auto) 6.4 Eos % (Auto) 3.1 Baso % (Auto) 0.9 Neut # (Auto) 5.7 Lymph # (Auto) 1.6 [place] # (Auto) 0.5 Eos # (Auto) 0.3 Baso # (Auto) 0.1 PT INR Sodium 141 Potassium 4.1 Chloride 108 H Carbon Dioxide 28 Anion Gap 9.1 BUN 19 H Creatinine 0.80 Estimated Creat Clear 60 Estimated GFR 69 Est GFR ( Amer) 84 Glucose 74 D POC Glucose 77 Lactate 0.7 Calcium 9.4 Total Bilirubin AST ALT Alkaline Phosphatase Total Protein Albumin Globulin Albumin/Globulin Ratio TSH 3.15 Urine Color Urine Appearance Urine pH Ur Specific [place] Urine Protein Urine Glucose (UA) Urine Ketones Urine Blood Urine Nitrate Urine Bilirubin Urine Urobilinogen Ur Leukocyte Esterase Urine RBC Urine WBC Ur Squamous Epith Cells Urine Bacteria 05/30/24 05/30/24 15:00 13:30 WBC 7.3 RBC 3.88 L Hgb 12.1 L Hct 39.7 MCV 102.2 H MCH 31.2 MCHC 30.5 L RDW 14.6 Plt Count 156 MPV 10.3 Neut % (Auto) 62.1 Lymph % (Auto) 25.4 [place] % (Auto) 7.9 Eos % (Auto) 3.7 Baso % (Auto) 0.9 Neut # (Auto) 4.6 Lymph # (Auto) 1.9 [place] # (Auto) 0.6 Eos # (Auto) 0.3 Baso # (Auto) 0.1 PT 10.9 INR 0.97 Sodium 140 Potassium 4.9 Chloride 106 Carbon Dioxide 28 Anion Gap 10.9 BUN 23 H Creatinine 0.90 Estimated Creat Clear 61 Estimated GFR 61 Est GFR ( Amer) 73 Glucose 94 POC Glucose Lactate Calcium 9.5 Total Bilirubin 0.6 AST 53 H ALT 39 Alkaline Phosphatase 167 H Total Protein 7.2 Albumin 4.0 Globulin 3.2 Albumin/Globulin Ratio 1.3 TSH Urine Color Red Urine Appearance Turbid Urine pH 8.0 Ur Specific [place] 1.010 Urine Protein 3+ A Urine Glucose (UA) 1+ Urine Ketones 3+ Urine Blood 3+ A Urine Nitrate Positive Urine Bilirubin 3+ A Urine Urobilinogen >=8.0 Ur Leukocyte Esterase 3+ A Urine RBC Tntc Urine WBC 3-5 Ur Squamous Epith Cells None Urine Bacteria Trace Preliminary micro results at discharge 05/30/24 13:30 Urine Culture - Preliminary Urine,Clean Catch Gram Negative Rods DS: Diagnosis Discharge Diagnosis (1) Gross hematuria: Status: Acute Code(s): R31.0 - Gross hematuria (2) Bladder mass: Status: Acute Code(s): N32.89 - Other specified disorders of bladder (3) Urinary tract infection: Status: Resolved Code(s): N39.0 - Urinary tract infection, site not specified Qualifiers: Hematuria presence: without hematuria Urinary tract infection type: acute cystitis Qualified Code(s): N30.00 - Acute cystitis without hematuria Meds Home Medications and Allergies Home Medications ?Medication ?Instructions ?Recorded ?Confirmed ?Type donepezil 10 mg tablet 10 mg PO DAILY 01/02/20 05/31/24 History atorvastatin 40 mg tablet 40 mg PO DAILY Cholesterol 01/24/20 05/31/24 History albuterol sulfate 90 mcg/actuation 2 puff inhalation Q6HP PRN 01/29/22 05/31/24 History aerosol inhaler (Ventolin HFA) Shortness Of Breath bethanechol chloride 25 mg tablet 25 mg PO TID Urinary Retention 07/23/23 05/31/24 History fluoxetine 40 mg capsule 40 mg PO DAILY Anxiety 07/23/23 05/31/24 History memantine 28 mg capsule 28 mg PO DAILY 07/23/23 05/31/24 History sprinkle,extended release 24hr docusate sodium 100 mg capsule 100 mg PO BID 07/24/23 05/31/24 History acetaminophen 500 mg tablet 500 mg PO TID 08/06/23 05/31/24 History cranberry extract 425 mg capsule 850 mg PO DAILY 08/06/23 05/31/24 History loperamide 2 mg capsule 2 mg PO QID PRN Diarrhea 08/06/23 05/31/24 History multivitamin 1 tab PO DAILY 08/06/23 05/31/24 History risperidone 0.5 mg tablet 0.5 mg PO BID Mood 10/19/23 05/31/24 History gabapentin 600 mg tablet 600 mg PO BID #60 tabs 02/22/24 05/31/24 Rx aspirin 81 mg chewable tablet 81 mg PO DAILY #90 tabs 05/05/24 05/31/24 Rx (Aspirin Childrens) lorazepam 1 mg tablet 1 mg PO BID #60 tabs 05/19/24 05/31/24 Rx New Prescriptions to Start Prescriptions: Allergies Allergy/AdvReac Type Severity Reaction Status Date / Time diphtheria toxoid,fluid Allergy Unknown Unknown Verified 04/18/24 10:15 [DIPHTHERIA TOXOID,FLUID] allergy reaction Penicillins [PENICILLINS] Allergy Unknown Unknown Verified 04/18/24 10:15 allergy reaction Sulfa (Sulfonamide Allergy Unknown Unknown Verified 04/18/24 10:15 Antibiotics) allergy [SULFA (SULFONAMIDE reaction ANTIBIOTICS)] tetanus and diphtheria Allergy Unknown Unknown Verified 04/18/24 10:15 toxoids allergy [TETANUS & DIPHTHERIA reaction TOXOIDS] codeine Allergy Unknown Verified 04/18/24 10:15 allergy reaction morphine Allergy Unknown Verified 04/18/24 10:15 allergy reaction Discharge Plan Disposition Patient Disposition: Xfer Other Condition: Fair Discharge Order Discharge Orders: Discharge Order (Routine); Ordered 05/31/24 Ordered By: Red Triana Follow up Plan Prescriptions/Medication Reconciliation: Continued donepezil 10 mg tablet 10 mg PO DAILY albuterol sulfate [Ventolin HFA] 90 mcg/actuation HFA aerosol inhaler 2 puff IH Q6HP PRN (Reason: Shortness Of Breath) acetaminophen 500 mg tablet 500 mg PO TID loperamide 2 mg capsule 2 mg PO QID PRN (Reason: Diarrhea) Rx Instructions: administer after each loose stool until symptoms controlled; do not exceed 8 mg per 24 hrs cranberry extract 425 mg capsule 850 mg PO DAILY Rx Instructions: administer with a meal multivitamin Tablet 1 tab PO DAILY risperidone 0.5 mg tablet 0.5 mg PO BID gabapentin 600 mg tablet 600 mg PO BID Qty: 60 2RF aspirin [Aspirin Childrens] 81 mg tablet,chewable 81 mg PO DAILY Qty: 90 3RF lorazepam 1 mg tablet 1 mg PO BID Qty: 60 5RF atorvastatin 40 MG tablet 40 mg PO DAILY fluoxetine 40 mg capsule 40 mg PO DAILY bethanechol chloride 25 mg tablet 25 mg PO TID memantine 28 mg capsule,sprinkle,ER 24hr 28 mg PO DAILY docusate sodium 100 mg Capsule 100 mg PO BID Problem Reconciliation Problems Reviewed?: Yes Patient Discharge Instructions Patient Instructions: DI for Hematuria, Catheter-Associated Urinary Tract Infection Print Language: Malian Providers Primary Care Provider: Provider,Referral Admit Provider: Willian Garcia Attending Provider: Willian Garcia
--- NOTE | 2024-06-04 10:33 | PC.NURSE ---
blood culture results forwarded to hospitalist
--- OUTSIDE RECORDS SUMMARY | 2024-06-14 11:05 | XMS_ITS ---
Author Organization Unknown ALLERGIES AND ADVERSE REACTIONS No information ASSESSMENT No information CHIEF COMPLAINT No information MEDICATIONS No information OBJECTIVE DATA No information PHYSICAL EXAMINATION No information TREATMENT PLAN Planned Care Start Date Provider Encounter for Check-up [id number] [facility] PROBLEMS No information RESULTS No information REVIEW OF SYSTEMS No information SUBJECTIVE DATA No information VITAL SIGNS No information
== END 2024-05-31 18:20 | disposition short-term general hospital (02) | DRG 689 ==
LOC: ER 21:38 → 2ND 05-31 06:27
PROVIDERS: Physician Assistant; Student in an Organized Health Care Education/Training Program; Admitting Provider Internal Medicine Adolescent Medicine; Emergency Provider Emergency Medicine; Visit Provider Internal Medicine Adolescent Medicine
DX: N39.0 Urinary tract infection, site not specified (principal); G93.41 Metabolic encephalopathy; R31.0 Gross hematuria; I25.10 Atherosclerotic heart disease of native coronary artery without angina pectoris; I73.9 Peripheral vascular disease, unspecified; I87.2 Venous insufficiency (chronic) (peripheral); F03.90 Unspecified dementia, unspecified severity, without behavioral disturbance, psychotic disturbance, mood disturbance, and anxiety; E66.9 Obesity, unspecified; Z68.32 Body mass index [BMI] 32.0-32.9, adult
CPT/HCPCS: 36415; 51702; 71250; 74177; 76856; 80048; 80053; 81001; 82533; 82962; 83605; 84443; 85014; 85018; 85025; 85610; 87040; 87086; 87088; 87186; 99285; G0378; J0696; J1630; J2185; J7120; Q9967

== ENCOUNTER 2024-09-26 08:11 | Inpatient (IN) | payer MEDICARE, MEDICAID, SELFPAY ==
[2024-09-26] VITALS (58 sets, daily range): BP systolic 80–152; BP diastolic 28–85; PULSE 49–86; RESP 11–27; TEMP 36.6–38.4; O2SAT 89–100; BMI 25.0; BMI 30.9
--- NOTE | 2024-09-26 08:07 | XR_ITS ---
FINAL REPORT TECHNIQUE: Single view chest CLINICAL HISTORY: AMS, resp failure COMPARISON: 10/04/2023 FINDINGS: A single view of the chest was obtained. The heart is mildly enlarged. The aorta is unfolded. There is right basilar linear density which may represent scarring or atelectasis. Chronic changes are noted at the lung bases. There is no pneumothorax. IMPRESSION: Right basilar density which may represent atelectasis or scarring. Reviewed, Interpreted and Dictated by Ulysses Berg MD Transcribed by Edelmira Willis Authenticated and [facility]
--- NOTE | 2024-09-26 08:07 | ECG_ITS ---
APPROVED REPORT Exam: Resting ECG HR:85 bpm ECG Measurements Heart Rate 85 AXES WI 150 P 41 QRSd 86 QRS 0 QT 362 T 45 QTc 404 Conclusion SINUS RHYTHM NORMAL ECG Electronically signed by : JUANCARLOS DANG, 09/26/2024 17:10:07
[2024-09-26] MEDS: VANCOMYCIN CONSULT REQUEST 1 EACH NOTAPPLIC ×2 (08:15→16:30)
--- NOTE | 2024-09-26 08:15 | PC.NURSE ---
0815 rectal tylenol given by November RN
--- NOTE | 2024-09-26 08:19 | ED_ITS ---
Discharge Plan Disposition Patient Disposition: Admitted Condition: Fair Clinical Impressions Clinical Impression: Sepsis due to pneumonia, Acute hypoxemic respiratory failure, Septic shock, Altered mental status Discharge ED Provider: Stacy Butcher General Adult HPI General Chief complaint: Fever Stated complaint: Fever, Hypoxic, Hypotension Time Seen by Provider: 09/26/24 08:17 History of Present Illness HPI narrative: This patient is a 79-year-old female with a history of advanced dementia, hypertension, hyperlipidemia, CAD, PAD, aortic insufficiency, AAA, diverticulosis, and prior history of tobacco use presenting to the emergency department for evaluation from [facility] with concern for high fever, low oxygen, low blood pressure. Patient has a history of recurrent urinary tract infections with chronic indwelling Mccoy catheter. Patient was found this morning in respiratory distress with an O2 saturation in the 70s and was put on 2 L nasal cannula with improvement to the low 80s. They noted her blood pressure was low and his temperature was 102 ?F, so they called EMS. EMS increased the patient's O2 from 2 L to 4 L and administered DuoNeb. IV access was obtained and IV fluid resuscitation was initiated prior to arrival. Patient does not contribute to history given advanced dementia. I called and spoke with her daughter who advised that she is a DNR, but she is okay to intubate as long as the respiratory issues are coming from pneumonia so they could potentially be reversible. We discussed that it is difficult to ascertain whether or not the patient's issues are surely related to pneumonia, as is likely multifactorial, but she would still like to proceed with intubation and keep the patient DNR. Related Data Home Medications ?Medication ?Instructions ?Recorded ?Confirmed donepezil 10 mg tablet 10 mg PO HS 01/02/20 09/26/24 atorvastatin 40 mg tablet 40 mg PO 01/24/20 09/26/24 albuterol sulfate 90 mcg/actuation 2 puff inhalation Q6HP PRN 01/29/22 09/26/24 aerosol inhaler (Ventolin HFA) Shortness Of Breath fluoxetine 40 mg capsule 40 mg PO DAILY 07/23/23 09/26/24 memantine 28 mg capsule 28 mg PO DAILY 07/23/23 09/26/24 sprinkle,extended release 24hr docusate sodium 100 mg capsule 100 mg PO BID 07/24/23 09/26/24 cranberry extract 425 mg capsule 850 mg PO DAILY 08/06/23 09/26/24 multivitamin 1 tab PO DAILY 08/06/23 09/26/24 risperidone 0.5 mg tablet 0.5 mg PO BID 10/19/23 09/26/24 conjugated estrogens 0.625 mg/gram 1 applic vaginal .3 TIMES PER WEEK 07/30/24 09/26/24 vaginal cream acetaminophen 500 mg tablet 500 mg PO Q4HP PRN Fever Or Pain 08/30/24 09/26/24 acetaminophen 500 mg tablet 500 mg PO TID 08/30/24 09/26/24 aluminum hydrox-magnesium carb 95 30 ml PO Q4HP PRN GI upset 08/30/24 09/26/24 mg-358 mg/15 mL oral suspension (Acid Gone Antacid) dextromethorphan-guaifenesin 5 10 ml PO Q6HP PRN Cough 08/30/24 09/26/24 mg-100 mg/5 mL oral liquid (Robitussin Cough-Chest Congestion DM) ondansetron HCl 4 mg tablet 4 mg PO Q6HP PRN Nausea 08/30/24 09/26/24 Previous Rx's ?Medication ?Instructions ?Recorded aspirin 81 mg chewable tablet 81 mg PO DAILY #90 tabs 05/05/24 (Aspirin Childrens) lorazepam 1 mg tablet 1 mg PO BID #60 tabs 05/19/24 gabapentin 600 mg tablet 600 mg PO BID #60 tabs 06/28/24 Allergies Allergy/AdvReac Type Severity Reaction Status Date / Time diphtheria toxoid,fluid Allergy Unknown Unknown Verified 09/26/24 15:20 (DIPHTHERIA TOXOID,FLUID) allergy reaction Penicillins (PENICILLINS) Allergy Unknown Unknown Verified 09/26/24 15:20 allergy reaction Sulfa (Sulfonamide Allergy Unknown Unknown Verified 09/26/24 15:20 Antibiotics) (SULFA allergy (SULFONAMIDE ANTIBIOTICS)) reaction tetanus and diphtheria Allergy Unknown Unknown Verified 09/26/24 15:20 toxoids (TETANUS & allergy DIPHTHERIA TOXOIDS) reaction codeine Allergy Unknown Verified 09/26/24 15:20 allergy reaction morphine Allergy Unknown Verified 09/26/24 15:20 allergy reaction PFSH PFSH Disclaimer: The information contained in this section may have been updated after the patient was seen, as this information can be updated by other users. 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 Falls Fracture of tubercle of left pubis Diastolic dysfunction Ambulatory dysfunction Peripheral arterial occlusive disease Bilateral primary osteoarthritis of hip Cerebral aneurysm, nonruptured Vitamin B12 deficiency anemia, unspecified Anxiety disorder, unspecified Dementia in other diseases classified elsewhere, unspecified severity, with other behavioral disturbance Bipolar disorder, current episode mixed, unspecified Obesity (BMI 30.0-34.9) Lumbar radicular pain Adrenal mass, left AAA (abdominal aortic aneurysm) without rupture Diverticulosis Tobacco use Surgical History History of laparotomy Social History (Updated 09/26/24 @ 15:28 by Priti Blanca RN) Smoking Status: Former smoker tobacco type: cigarettes packs per day: 1 alcohol intake: never substance use type: denies use current occupational status: disabled Travel in the last 8 weeks: None household members: other housing: assisted living facility current occupational exposures/hazards: No caffeine: Yes Have you lived/traveled outside [place] in past 30 days?: No Contact w/someone who lives/traveled outside US past 30 days?: No Exposure to someone with infectious disease in past 14 days?: No Do you have a fever (greater than 100.4 F or 38 C)?: Yes Have you tested positive for COVID-19: No Exposed to someone with COVID-19 in past 14 days?: No Do you have a sore throat?: No Do you have a cough?: No Do you have any weakness?: No Do you have any diarrhea?: No Are you experiencing any unusual bleeding?: No Do you have any muscle aches/pain?: No Do you have any abdominal pain?: No Are you experiencing loss of taste or smell?: No Other Medical History Have you received the Flu Vaccine for this season: No Have you received the Pneumonia Vaccine: No (refused) ROS Obtained: Yes unobtainable due to mental status Physical Exam General General appearance: lethargic and in distress Comment: Acutely ill-appearing Head Head exam: atraumatic and normocephalic Eye Eye exam: Present normal appearance, PERRL and EOMI ENT ENT exam: Present normal exam, normal oropharynx, mucous membranes dry and normal external ear exam Neck Neck exam: Present normal inspection, full ROM and trachea midline; Absent tenderness Chest Chest inspection: Present normal inspection and symmetric chest wall rise; Absent tenderness Respiratory Respiratory exam: Present respiratory distress, wheezes, accessory muscle use, prolonged expiratory phase and other (Coarse rhonchi and crackles noted bilaterally); Absent stridor Cardiovascular Cardiovascular exam: Present regular rate and normal rhythm Abdominal Exam Abdominal exam: Present soft; Absent distention, tenderness or guarding Extremities Exam Extremities exam: Present full ROM, normal capillary refill and edema (1+ bilateral lower extremity edema); Absent tenderness Back Exam Back exam: Present normal inspection and full ROM; Absent tenderness Neurological Exam Neurological exam: Absent alert or oriented X3 Expanded Neurological Exam Coma scale eye opening: To pain Coma scale motor response: Localizes to pain Coma scale verbal response: None Coma scale total: 8 Skin Skin exam: Present warm and dry Medical Decision Making Medical Records Medical records reviewed: Yes I reviewed the patient's medical records. Screening: Per USPSTF and CDC recommendations, given the prevalence of disease in our region, it is our hospital?s policy to screen for HIV and viral Hepatitis for all patients aged 18 and over and those with ongoing risk factors. Nico Inquiry Pt receiving controlled substance: No Vital Signs: 09/26/24 08:07 09/26/24 08:15 09/26/24 08:20 Temperature Temperature Source Pulse Rate Pulse Rate [Right Radial] 78 78 Respiratory Rate 22 22 Blood Pressure Blood Pressure [Right Arm] 88/59 L Blood Pressure Mean Blood Pressure Mean [Right Arm] 68 Blood Pressure Source Blood Pressure Source [Right Arm] Automatic Cuff Blood Pressure Position 02 Sat by Pulse Oximetry 94 L Oxygen Delivery Method Nasal Cannula Oxygen Flow Rate (LPM) 4 09/26/24 08:27 09/26/24 08:30 09/26/24 08:40 Temperature 101.1 F H Temperature Source Oral Pulse Rate 77 69 72 Pulse Rate [Right Radial] Respiratory Rate 20 14 15 Blood Pressure 95/59 L 90/57 L 90/52 L Blood Pressure [Right Arm] Blood Pressure Mean 64 63 Blood Pressure Mean [Right Arm] Blood Pressure Source Automatic Cuff Blood Pressure Source [Right Arm] Blood Pressure Position Sitting 02 Sat by Pulse Oximetry 93 L 95 96 Oxygen Delivery Method Nasal Cannula Oxygen Flow Rate (LPM) 4 09/26/24 08:45 09/26/24 08:50 09/26/24 08:52 Temperature Temperature Source Pulse Rate 71 72 72 Pulse Rate [Right Radial] Respiratory Rate 15 16 15 Blood Pressure 88/48 L 92/51 L Blood Pressure [Right Arm] Blood Pressure Mean Blood Pressure Mean [Right Arm] Blood Pressure Source Blood Pressure Source [Right Arm] Blood Pressure Position 02 Sat by Pulse Oximetry 95 95 95 Oxygen Delivery Method Oxygen Flow Rate (LPM) 09/26/24 09:04 09/26/24 09:14 09/26/24 09:14 Temperature Temperature Source Rectal Pulse Rate 72 69 Pulse Rate [Right Radial] Respiratory Rate 16 20 Blood Pressure 111/69 Blood Pressure [Right Arm] Blood Pressure Mean 75 Blood Pressure Mean [Right Arm] Blood Pressure Source Blood Pressure Source [Right Arm] Blood Pressure Position 02 Sat by Pulse Oximetry 95 95 Oxygen Delivery Method Oxygen Flow Rate (LPM) 09/26/24 09:16 09/26/24 09:20 09/26/24 09:20 Temperature Temperature Source Pulse Rate 70 69 Pulse Rate [Right Radial] Respiratory Rate 22 15 Blood Pressure 98/63 L Blood Pressure [Right Arm] Blood Pressure Mean 68 Blood Pressure Mean [Right Arm] Blood Pressure Source Blood Pressure Source [Right Arm] Blood Pressure Position 02 Sat by Pulse Oximetry 97 98 Oxygen Delivery Method Oxygen Flow Rate (LPM) 09/26/24 09:30 09/26/24 09:30 09/26/24 09:34 Temperature Temperature Source Pulse Rate 74 82 Pulse Rate [Right Radial] Respiratory Rate 27 H 13 Blood Pressure 83/54 L Blood Pressure [Right Arm] Blood Pressure Mean 60 Blood Pressure Mean [Right Arm] Blood Pressure Source Blood Pressure Source [Right Arm] Blood Pressure Position 02 Sat by Pulse Oximetry 99 100 Oxygen Delivery Method Oxygen Flow Rate (LPM) 09/26/24 09:34 09/26/24 09:40 09/26/24 09:40 Temperature Temperature Source Pulse Rate 82 Pulse Rate [Right Radial] Respiratory Rate 16 Blood Pressure 96/58 L 95/54 L Blood Pressure [Right Arm] Blood Pressure Mean 68 62 Blood Pressure Mean [Right Arm] Blood Pressure Source Blood Pressure Source [Right Arm] Blood Pressure Position 02 Sat by Pulse Oximetry 99 Oxygen Delivery Method Oxygen Flow Rate (LPM) 09/26/24 09:50 09/26/24 09:50 09/26/24 09:55 Temperature Temperature Source Pulse Rate 86 Pulse Rate [Right Radial] Respiratory Rate 15 Blood Pressure 93/51 L 93/51 L 80/52 L Blood Pressure [Right Arm] Blood Pressure Mean 55 58 Blood Pressure Mean [Right Arm] Blood Pressure Source Automatic Cuff Blood Pressure Source [Right Arm] Blood Pressure Position Supine 02 Sat by Pulse Oximetry 96 Oxygen Delivery Method Oxygen Flow Rate (LPM) 09/26/24 10:00 09/26/24 10:10 09/26/24 10:20 Temperature Temperature Source Pulse Rate 83 81 82 Pulse Rate [Right Radial] Respiratory Rate 14 25 H 26 H Blood Pressure 108/54 L 96/49 L 96/57 L Blood Pressure [Right Arm] Blood Pressure Mean 64 Blood Pressure Mean [Right Arm] Blood Pressure Source Blood Pressure Source [Right Arm] Blood Pressure Position 02 Sat by Pulse Oximetry 96 95 95 Oxygen Delivery Method Nasal Cannula Nasal Cannula Nasal Cannula Oxygen Flow Rate (LPM) 3 3 09/26/24 10:30 09/26/24 10:35 09/26/24 10:40 Temperature 99.1 F Temperature Source Axillary Pulse Rate 79 78 Pulse Rate [Right Radial] Respiratory Rate 25 H 20 Blood Pressure 93/53 L 96/50 L 110/61 Blood Pressure [Right Arm] Blood Pressure Mean 65 73 Blood Pressure Mean [Right Arm] Blood Pressure Source Blood Pressure Source [Right Arm] Blood Pressure Position 02 Sat by Pulse Oximetry 95 95 95 Oxygen Delivery Method Nasal Cannula Nasal Cannula Oxygen Flow Rate (LPM) 3 3 09/26/24 10:50 09/26/24 10:50 09/26/24 11:00 Temperature Temperature Source Pulse Rate Pulse Rate [Right Radial] Respiratory Rate 13 26 H Blood Pressure 113/60 95/61 L Blood Pressure [Right Arm] Blood Pressure Mean 72 67 Blood Pressure Mean [Right Arm] Blood Pressure Source Blood Pressure Source [Right Arm] Blood Pressure Position 02 Sat by Pulse Oximetry Oxygen Delivery Method Oxygen Flow Rate (LPM) 09/26/24 11:10 09/26/24 11:21 09/26/24 11:30 Temperature Temperature Source Pulse Rate Pulse Rate [Right Radial] Respiratory Rate Blood Pressure 93/69 L 128/66 118/69 Blood Pressure [Right Arm] Blood Pressure Mean 74 83 78 Blood Pressure Mean [Right Arm] Blood Pressure Source Blood Pressure Source [Right Arm] Blood Pressure Position 02 Sat by Pulse Oximetry Oxygen Delivery Method Oxygen Flow Rate (LPM) 09/26/24 11:40 09/26/24 11:40 09/26/24 11:50 Temperature 98.2 F 98.4 F Temperature Source Pulse Rate 68 Pulse Rate [Right Radial] Respiratory Rate 16 13 Blood Pressure 106/60 L 113/57 L Blood Pressure [Right Arm] Blood Pressure Mean 72 Blood Pressure Mean [Right Arm] Blood Pressure Source Blood Pressure Source [Right Arm] Blood Pressure Position 02 Sat by Pulse Oximetry 96 Oxygen Delivery Method Nasal Cannula Oxygen Flow Rate (LPM) 3 09/26/24 12:00 09/26/24 12:10 09/26/24 12:30 Temperature 98.4 F 98.2 F 98.2 F Temperature Source Core Pulse Rate 69 68 Pulse Rate [Right Radial] Respiratory Rate 23 11 L 20 Blood Pressure 102/61 L 103/58 L 95/60 L Blood Pressure [Right Arm] Blood Pressure Mean 67 Blood Pressure Mean [Right Arm] Blood Pressure Source Blood Pressure Source [Right Arm] Blood Pressure Position 02 Sat by Pulse Oximetry 96 95 Oxygen Delivery Method Nasal Cannula Nasal Cannula Oxygen Flow Rate (LPM) 3 3 09/26/24 12:53 Temperature 98.2 F Temperature Source Oral Pulse Rate 68 Pulse Rate [Right Radial] Respiratory Rate 18 Blood Pressure 110/57 L Blood Pressure [Right Arm] Blood Pressure Mean Blood Pressure Mean [Right Arm] Blood Pressure Source Automatic Cuff Blood Pressure Source [Right Arm] Blood Pressure Position Supine 02 Sat by Pulse Oximetry Oxygen Delivery Method Nasal Cannula Oxygen Flow Rate (LPM) 3 Lab Data Lab results reviewed: Yes I reviewed the patient's lab results. Lab Results 09/26/24 08:00: WBC 19.8 H, RBC 3.43 L, Hgb 9.7 L, Hct 31.9 L, MCV 93.0, MCH 28.3, MCHC 30.4 L, RDW 15.2, Plt Count 230, MPV 11.1 H, Neut % (Auto) 75.5, Lymph % (Auto) 14.3, Faulk % (Auto) 8.3, Eos % (Auto) 0.7, Baso % (Auto) 0.3, N eut # (Auto) 15.0 H, Lymph # (Auto) 2.8, [place] # (Auto) 1.7 H, Eos # (Auto) 0.1, Baso # (Auto) 0.1, Total Counted 100, Neutrophils % (Manual) 74, Lymphocytes % (Manual) 18, Monocytes % (Manual) 7, Eosinophils % (Manual) 1, Platelet Estimate Normal, RBC Morphology Normal, D-Dimer 1.14 H, Sodium 139, Potassium 4.5, Chloride 106, Carbon Dioxide 25, Anion Gap 12.5, BUN 25 H, Creatinine 1.20 H, E stimated GFR 43 L, Est GFR ( Amer) 52 L, Glucose 95, Calcium 8.8, Magnesium 1.9, Total Bilirubin 0.6, AST 32, ALT 22, Alkaline Phosphatase 181 H, Troponin I 0.01, C-Reactive Protein 186.3 H, NT-Pro-B Natriuret Pep 506 H, Total Protein 6.7, Albumin 3.5, Globulin 3.2, Albumin/Globulin Ratio 1.1, Lipase 51, Procalcitonin 0.149, TSH 2.27, Thyroxine (T4) 6.9 09/26/24 08:10: Chlamy pneumoniae PCR Not detected, Adenovirus (PCR) Not detected, B. pertussis DNA (PCR) Not detected, Coronavirus OC43 (PCR) Not detected, Coronavirus HKU1 (PCR) Not detected, Coronavirus 229E (PCR) Not detected, SARS-CoV-2 (PCR) Not detected 09/26/24 08:10: SARS-CoV-2 (PCR) Not detected, Coronavirus NL63 (PCR) Not detected, Human Metapneumovir PCR Not detected, Influenza A (H1) PCR Not detected, Influ A (H1N1/09) PCR Not detected, Influenza A (H3) PCR Not detected, Influenza Type A (PCR) Not detected, Influenza A Untype (PCR) Not detected, Influenza Type B (PCR) Not detected 09/26/24 08:10: Influenza Type B (PCR) Not detected, M. pneumoniae (PCR) Not detected, Parainfluenza 1 (PCR) Not detected, Parainfluenza 2 (PCR) Not detected, Parainfluenza 3 (PCR) Not detected, Parainfluenza 4 (PCR) Not detected, RSV (PCR) Detected A, Entero/Rhino (PCR) Not detected 09/26/24 08:19: VBG pH 7.48 H, VBG pCO2 33.0 L, VBG pO2 151.5 H, VBG HCO3 23.9, VBG Total CO2 24.9, VBG O2 Saturation 99.4 H, VBG Base Excess 0.4, VBG Lactic Acid 1.3 09/26/24 09:01: Urine Color Dark yellow, Urine Appearance Cloudy, Urine pH >= 9.0 H, Ur Specific [place] <= 1.005, Urine Protein 2+ A, Urine Glucose (UA) Negative, Urine Ketones Negative, Urine Blood Trace-i, Urine Nitrate Positive A, Urine Bilirubin Negative, Urine Urobilinogen 1.0, Ur Leukocyte Esterase 2+ A, Urine RBC 5-10, Urine WBC 10-20, Ur Squamous Epith Cells 10-20, Urine Bacteria 2+ 09/26/24 11:32: Troponin I 0.01 09/26/24 08:00 09/26/24 08:00 Orders (Tests/Meds): ED MEDICATIONS Generic Name Dose Route Start Last Admin Trade Name Freq PRN Reason Stop Dose Admin Acetaminophen 650 mg 09/26/24 11:13 Acetaminophen 325mg Tab PO 10/26/24 11:12 Q4HP PRN Fever or Mild Pain (1-3) Albuterol/Ipratropium 3 ml 09/26/24 18:00 Ipratropium/Albuterol 3 Ml Neb IH 10/26/24 17:59 Q6RT MANE Docusate Sodium 100 mg 09/26/24 21:00 Docusate Sodium 100 Mg Capsule PO 10/26/24 20:59 BID MANE Donepezil HCl 10 mg 09/26/24 21:00 Donepezil 10mg Tab PO 10/26/24 20:59 HS MANE Enoxaparin Sodium 40 mg 09/26/24 11:15 09/26/24 12:41 Enoxaparin 40mg/0.4ml Syringe SUBCUT 10/26/24 11:14 40 mg DAILY MANE Administration Gabapentin 600 mg 09/26/24 21:00 Gabapentin 600mg Tablet PO 10/26/24 20:59 BID MANE Norepinephrine/Dextrose 8 mg in 250 mls @ 3.75 mls/hr 09/26/24 13:47 09/26/24 15:04 Levophed 8mg/250ml-D5w Premix IV 10/26/24 13:46 3 mcg/min .Q24H MANE 5.63 mls/hr Infusion Protocol 2 MCG/MIN Meropenem 1 gm/ Sodium 100 mls @ 100 mls/hr 09/26/24 16:30 Chloride IV 10/06/24 16:29 Q8H MANE Lorazepam 1 mg 09/26/24 16:22 Lorazepam 1mg Tablet PO 10/26/24 20:59 BID PRN Anxiety Miscellaneous 1 each 09/26/24 16:30 Vancomycin Consult Request NOTAPPLIC 10/26/24 16:29 CONSULT PHARMACY MANE Non-Formulary Medication 10 ml 09/26/24 16:22 Dextromethorphan-Guaifenesin [Robitussin Cough-Chest [place] Dm] PO Q6HP PRN Cough Non-Formulary Medication 40 mg 09/27/24 09:00 Fluoxetine PO 10/27/24 08:59 DAILY MANE Non-Formulary Medication 28 mg 09/27/24 09:00 Memantine PO 10/27/24 08:59 DAILY MANE Risperidone 0.25 mg 09/26/24 21:00 Risperidone 0.5 Mg Tablet PO 10/26/24 20:59 BID MANE Discontinued Medications Generic Name Dose Route Start Last Admin Trade Name Freq PRN Reason Stop Dose Admin Acetaminophen 1,000 mg 09/26/24 08:09 09/26/24 08:55 Acetaminophen 1,000mg/100ml Vial IV 09/26/24 08:10 Not Given ONCE ONE Acetaminophen 650 mg 09/26/24 09:20 09/26/24 09:22 Acetaminophen 650mg Suppository RC 09/26/24 09:21 650 mg ONCE ONE Administration Albuterol/Ipratropium 9 ml 09/26/24 08:09 09/26/24 08:49 Ipratropium/Albuterol 3 Ml Neb IH 09/26/24 08:10 9 ml ONCE ONE Administration Lactated Ringer's 1,000 mls @ 999 mls/hr 09/26/24 08:09 09/26/24 08:48 Lactated Ringer's 1000 Ml Bag IV 09/26/24 09:09 999 mls/hr .Q1H1M ONE Administration Cefepime HCl 2 gm/ Sodium 100 mls @ 200 mls/hr 09/26/24 08:12 09/26/24 09:11 Chloride IV 09/26/24 08:41 200 mls/hr ONCE ONE Administration Vancomycin/PEG/NADA/Lysine/Water 1.25 gm in 250 mls @ 125 mls/hr 09/26/24 09:00 09/26/24 09:21 Vancomycin 1.25gm/250ml (Peg) Premix IV 09/26/24 10:59 125 mls/hr ONCE ONE Administration Lactated Ringer's 500 mls @ 999 mls/hr 09/26/24 10:01 09/26/24 10:34 Lactated Ringer's 1000 Ml Bag IV 09/26/24 10:31 Not Given .Q31M ONE Lactated Ringer's 500 mls @ 999 mls/hr 09/26/24 10:02 09/26/24 10:02 Lactated Ringer's 500ml IV 09/26/24 10:32 999 mls/hr .Q31M ONE Administration Sodium Chloride 500 mls @ 999 mls/hr 09/26/24 13:30 Sod Chlor 0.9% 1000ml Bag IV 09/26/24 14:00 .Q31M ONE Lactated Ringer's 500 mls @ 250 mls/hr 09/26/24 13:48 Lactated Ringer's 1000 Ml Bag IV 09/26/24 15:47 .Q2H ONE Iopamidol 70 ml 09/26/24 09:14 09/26/24 09:15 Iopamidol-370 (76%);100ml Bottle IV 09/26/24 09:15 70 ml ONCE ONE Administration Methylprednisolone Sodium Succinate 125 mg 09/26/24 08:10 09/26/24 08:48 Methylprednisolone Sod Succ 125mg Vial IV 09/26/24 08:11 125 mg ONCE ONE Administration Miscellaneous 1 each 09/26/24 08:15 09/26/24 08:15 Vancomycin Consult Request NOTAPPLIC 10/26/24 08:14 1 each CONSULT PHARMACY MANE Administration Sodium Chloride 50 ml 09/26/24 09:14 09/26/24 09:15 0.9 % Sodium Chloride 50 Ml Vial IV 09/26/24 09:15 50 ml ONCE ONE Administration Sodium Chloride 10 ml 09/26/24 09:14 09/26/24 09:15 Sodium Chloride 0.9% 10ml Syr (Rad Only) IV 10/26/24 09:13 10 ml NEEDED PRN Administration Maintain IV Site ORDERS Category Date Time Status CT abdomen pelvis w con Stat Cat Scan 09/26/24 08:[address] angio chest PE protocol Stat Cat Scan 09/26/24 08:[address] head/brain wo con Stat Cat Scan 09/26/24 08:41 Completed Consult to Physician [CONS] Routine Cons 09/26/24 10:39 Ordered CXR --portable [XR chest portable] Stat Exams 09/26/24 08:07 Completed POCUS Point of Care (ER Only) Stat Exams 09/26/24 08:14 Completed BNP [NT Pro Brain Natriuretic Pep.] Stat Lab 09/26/24 08:00 Completed CRP [C-Reactive Protein] Stat Lab 09/26/24 08:00 Completed Complete Blood Count Auto Diff AMLAB Lab 09/27/24 06:00 Ordered Complete Blood Count Auto Diff Stat Lab 09/26/24 08:00 Completed Comprehensive Metabolic Panel AMLAB Lab 09/27/24 06:00 Ordered Comprehensive Metabolic Panel Stat Lab 09/26/24 08:00 Completed D-Dimer Stat Lab 09/26/24 08:00 Completed Full Resp Panel w/COVID ([facility]) Routine Lab 09/26/24 08:10 Completed Lipase Stat Lab 09/26/24 08:00 Completed Magnesium AMLAB Lab 09/27/24 06:00 Ordered Magnesium Stat Lab 09/26/24 08:00 Completed Procalcitonin Stat Lab 09/26/24 08:00 Completed Rapid PCR Covid and Flu A/B Stat Lab 09/26/24 08:10 Completed T4 (Thyroxine) Stat Lab 09/26/24 08:00 Completed TSH [Thyroid Stimulating Hormone] Stat Lab 09/26/24 08:00 Completed Trop I [Troponin I] Stat Lab 09/26/24 08:00 Completed Troponin I Q3H Lab 09/26/24 11:32 Completed Troponin I Q3H Lab 09/26/24 14:22 Completed UA [Urinalysis and Microscopic] Stat Lab 09/26/24 09:01 Completed Urine Culture Stat Micro 09/26/24 08:42 Received VBG [Venous Blood Gas] Stat RT 09/26/24 08:19 Completed ECG Data Tracing #1: I reviewed this ECG and interpreted as documented below: Normal sinus rhythm with ventricular rate of [address] changes concerning for STEMI. Normal intervals ECG initial impression date: 09/26/24 ECG initial impression time: 08:10 Medical Decision Narrative: In summary, this patient is a 79-year-old female presenting to the Emergency Department for evaluation of fever, low oxygen, low blood pressure at nursing facility. Differential diagnoses considered include but are not limited to sepsis, pneumonia, acute heart failure, urinary tract infection. Ruling out the most morbid conditions drove assessment. It should be noted patient's history includes advanced dementia and cardiovascular disease which are not at goal therapy. This complicates all aspects of care by increasing patient's risk for morbidity. I reviewed patient's past medical records and noted multiple previous evaluations for various complaints, including urinary tract infections with chronic indwelling Mccoy catheter as well as frequent falls. On exam, the patient is acutely ill-appearing. She is febrile, hypotensive, hypoxic on 4 L nasal cannula. Initial blood pressure 60s over teens. I decided to go and administer 1 L bolus of IV fluids, but I did not administer a sepsis bolus because the patient looks volume overloaded on clinical exam. we will continue to reassess the fluid status. She has coarse crackles and rhonchi heard bilaterally. She has an indwelling Mccoy catheter. GCS is 8 at this time. I called and discussed the patient's care with the daughter who would be okay with intubation if we suspect pulmonary component that could be reversible, such as pneumonia, which I did explain is difficult to ascertain. She would like to make the patient DNR, so she will not receive chest compressions if her heart were to stop. Workup included very broad lab evaluation to evaluate for infectious, metabolic, cardiac etiologies as well as chest x-ray. She was given 1 L bolus of IV fluids, IV methylprednisolone, DuoNebs, and IV acetaminophen. She was given IV vancomycin and cefepime for broad-spectrum antibiotic coverage. She does have a penicillin allergy, but she is tolerated cephalosporins in the past according to medical record review. On multiple subsequent reassessments, the patient continues to awaken with painful stimuli. She has now been intermittently following commands. Blood pressure improved significantly after administration of 1 L bolus of fluids, so I did give her another 500 mL. She continues to respond well and was no longer hypotensive. She had improved perfusion and looks better overall with improvement in vitals. She continues to require 3 L nasal cannula with no oxygen requirement at baseline. Given sepsis with advanced dementia precluding ability to obtain a good history, I decided to order CT head without contrast, CT PE, and CT abdomen pelvis with IV contrast. I independently interpreted CT scan prior to the radiologist read and noted right lower lobe pneumonia. Please see their read for final interpretation. Labs demonstrated leukocytosis. Blood gas and chemistry are not overtly concerning with the exception of significantly elevated CRP. Cath urine is concerning for infection with chronic indwelling Mccoy catheter. It is contaminated, however, with some squamous cells. Overall, I feel the patient will benefit from admission for septic shock secondary to pneumonia, altered mental status, and acute respiratory failure with hypoxia. I had an interactive discussion with the hospitalist who admitted the patient in stable condition. Critical Care Critical Care Time Critical Care Time: Yes Attestation: On 09/26/24, the high probability of a clinically significant, sudden or life threatening deterioration of the following system(s) required my full and direct attention, intervention and personal management. The time I documented below is in addition to time spent performing reported procedures but includes the following listed in this critical care notation. Total Time Total Critical Care Time: 40
[2024-09-26 08:21] LABS: Basophils # 0.1 K/mm3 (0-0.2); Basophils % 0.3 % (0.1-2.0); Eosinophils # 0.1 K/mm3 (0.0-0.4); Eosinophils % 0.7 % (0.1-12.0); Hematocrit 31.9 % (37.0-47.0); Hemoglobin 9.7 g/dL (12.2-16.2); Lymphocytes # 2.8 K/mm3 (0.7-4.5); Lymphocytes % 14.3 % (10-50); Mean Corpuscular HGB Conc 30.4 g/dL (31.8-35.4); Mean Corpuscular Hemoglobin 28.3 pg (27.0-31.2); Mean Platelet Volume 11.1 fl (7.4-10.4); Monocytes # 1.7 K/mm3 (0.1-1.0); Monocytes % 8.3 % (1.7-9.3); Neutrophils % 75.5 % (37.0-80.0); Platelet Count 230 K/mm3 (142-424); Red Blood Count 3.43 M/mm3 (4.20-5.40); Red Cell Distribution Width 15.2 % (11.5-17.5); White Blood Count 19.8 K/mm3 (4.8-10.8)
[2024-09-26 08:24] LABS: Lactate Venous 1.3 mmol/L (0.4-2.0); VBG Base Excess 0.4 mmol/L (-2.4-2.3); VBG HCO3 23.9 mmol/L (23-30); VBG Oxygen Saturation 99.4 % (50-70); VBG PH 7.48 mmol/L (7.31-7.41); VBG PO2 151.5 mmol/L (28-40); VBG Total CO2 24.9 mmol/L (23-27)
[2024-09-26 08:26] LABS: MANUAL DIFFERENTIAL MANUAL DIFFERENTIAL (MANUAL DIFF)
[2024-09-26 08:26] LABS: Coronavirus 19, PCR Not Detected (NotDetected); Influenza A, PCR Not Detected (NotDetected); Influenza B, PCR Not Detected (NotDetected)
[2024-09-26 08:33] LABS: Albumin Level 3.5 g/dl (3.5-5.0); Chloride 106 mmol/L (98-107); Potassium 4.5 mmoL/L (3.5-5.1); Sodium 139 mmol/L (136-145)
[2024-09-26 08:35] LABS: Alanine Aminotransferase 22 U/L (12-78); Aspartate Amino Transferase 32 U/L (14-36); Blood Urea Nitrogen 25 mg/dl (7-17); Estimated Glomerular Filt Rate 43 ml/min (>60); GFR (African American) 52 ML/MIN (>60)
[2024-09-26 08:36] LABS: Albumin/Globulin Ratio 1.1 (1.1-1.8); Alkaline Phosphatase 181 U/L (38-126); Anion Gap 12.5 mEq/L (5-15); Bilirubin,Total 0.6 mg/dl (0.2-1.3); Calcium 8.8 mg/dl (8.4-10.2); Carbon Dioxide 25 mmol/L (22.0-30.0); Globulin 3.2 g/dL (1.3-3.2); Glucose 95 mg/dl (74-100); Lipase 51 U/L (23-300); Total Protein,Serum 6.7 g/dl (6.3-8.2)
--- NOTE | 2024-09-26 08:37 | PC.NURSE ---
0815 Pt rolled posterior skin assessed. Pt noted to have wound to coccyx. Pericare and catheter care provided. New brief applied, pt repositioned in bed. Pt on 4L NC IV fluids on pressure bag
--- NOTE | 2024-09-26 08:41 | CT_ITS ---
FINAL REPORT TECHNIQUE: multiple axial CT images were performed from the foramen magnum to the vertex without enhancement. This study was performed with techniques to keep radiation doses as low as reasonably achievable (ALARA). Individualized dose reduction techniques using automated exposure control or adjustment of mA and/or kV according to the patient's size were employed. CLINICAL HISTORY: AMS COMPARISON: 10/04/2023 FINDINGS: The ventricles are enlarged proportional to degree of atrophy. There is moderate diffuse atrophy. There is periventricular white matter change likely related to small vessel disease. There is no evidence of hemorrhage. No masses are identified. No extra-axial fluid is seen. There is lobular mucoperiosteal thickening of the frontal, ethmoid maxillary and sphenoid sinuses. Air-fluid levels are seen in the left maxillary and sphenoid sinus consistent with acute and chronic pansinusitis. IMPRESSION: Atrophy and chronic changes without acute process. Acute and chronic pansinusitis. Reviewed, Interpreted and Dictated by Ulysses Berg MD Transcribed by Edelmira Willis Authenticated and . [facility]
--- NOTE | 2024-09-26 08:41 | CT_ITS ---
FINAL REPORT TECHNIQUE: After the administration of intravenous contrast, axial images were obtained through the abdomen and pelvis by computed tomography. This study was performed with technique to keep radiation doses as low as reasonably achievable, (ALARA). Individualized dose reduction techniques using automated exposure control or adjustment of the MA and/or KV according to the patient's size were employed. CLINICAL HISTORY: septic shock, unknown etiology FINDINGS: Abdomen: The lung bases are clear. The liver is normal in size and attenuation. A large gallstone is present. The spleen is unremarkable. A left adrenal mass is present measuring 3.0 x 2.3 cm. The pancreas is unremarkable. The kidneys enhance appropriately. There is ectasia of the infrarenal abdominal aorta measuring up to 2.8 cm. There is no free fluid or adenopathy. There is a large periampullary duodenal diverticulum. Pelvis: Patient is status post hip prosthesis. There are scattered diverticula of the descending and sigmoid colon. The appendix is not identified. The urinary bladder is decompressed and thick-walled with a Mccoy catheter present. There is no free fluid or adenopathy. IMPRESSION: Indeterminate left adrenal mass. Recommend adrenal mass protocol CT for further evaluation. Large gallstone. Extensive diverticulosis. Decompressed, thick-walled urinary bladder. Reviewed, Interpreted and Dictated by Ulysses Berg MD Transcribed by Edelmira Willis Authenticated and [facility]
--- NOTE | 2024-09-26 08:41 | CT_ITS ---
FINAL REPORT TECHNIQUE: Postcontrast axial images of the chest were performed in a CTA protocol. This study was performed with techniques to keep radiation doses as low as reasonably achievable, (ALARA). Individualized dose reduction technique using automated exposure control or adjustment of mA and/or kV according to the patient's size were employed. CLINICAL HISTORY: septic shock, unknown etiology COMPARISON: 05/31/2024 FINDINGS: Debris is seen in the esophagus which could be related to reflux. The heart is normal in size. No adenopathy is identified. No pleural or pericardial effusion is identified. The thoracic aorta is normal in caliber with no focal aneurysm or dissection identified. There is no filling defect to suggest pulmonary embolism. There is dense right lower lobe airspace opacity likely due to pneumonia or aspiration. Left base atelectasis is also seen. IMPRESSION: No evidence for PE on this exam. Debris in the esophagus which may be related to reflux. Dense right lower lobe consolidation which may resent aspiration or pneumonia. Reviewed, Interpreted and Dictated by Ulysses Berg MD Transcribed by Edelmira Willis Authenticated and [facility]
[2024-09-26 08:42] LABS: C-Reactive Protein 186.3 mg/L (0-4)
[2024-09-26] MEDS: METHYLPREDNISOLONE SOD SUCC 125MG VIAL 125 MG IV (08:48)
[2024-09-26] MEDS: LACTATED RINGERS 1000ML 1,000 ML 999 ML IV (08:48)
[2024-09-26] MEDS: IPRATROPIUM/ALBUTEROL 3 ML NEB 9 ML IH (08:49)
[2024-09-26 08:52] LABS: Procalcitonin 0.149 ng/mL (0.0-2.0)
[2024-09-26 08:53] LABS: T4 (Thyroxine) 6.9 ug/dl (5.53-11.0)
[2024-09-26 08:56] LABS: NT Pro Brain Natriuretic Pep. 506 pg/mL (0-450)
--- NOTE | 2024-09-26 08:56 | PC.NURSE ---
Pt to ct scan via stretcher
[2024-09-26 09:03] LABS: Microscopic, Urine URINE MICROSCOPIC (MICROSCOPIC)
[2024-09-26 09:05] LABS: Eosinophils % 1 % (0-3); Lymphocytes % 18 % (10-50); Monocytes % 7 % (2-9); Neutrophils % 74 % (42-76); Platelet Estimate Normal; RBC Morphology Normal; Total Cells Counted 100
[2024-09-26 09:07] LABS: Thyroid Stimulating Hormone 2.27 uIU/mL (0.465-4.68); Troponin I 0.01 ng/ml (0.00-0.034)
[2024-09-26] MEDS: CEFEPIME HCL 2 GM in 0.9 % SODIUM CHLORIDE 100 ML IV (09:11)
--- NOTE | 2024-09-26 09:13 | PC.NURSE ---
pt back from ct. candelaria at bedside.
[2024-09-26] MEDS: SODIUM CHLORIDE 0.9% 10ML SYR (RAD ONLY) 10 ML IV (09:15)
[2024-09-26] MEDS: IOPAMIDOL-370 (76%);100ML BOTTLE 70 ML IV (09:15)
[2024-09-26] MEDS: 0.9 % SODIUM CHLORIDE 50 ML VIAL IV (09:15)
[2024-09-26] MEDS: VANCOMYCIN/WATER FOR INJ (PEG) 1.25 GM/250 ML PIGGYBACK IV ×2 (09:21→17:17)
[2024-09-26] MEDS: ACETAMINOPHEN 650MG SUPPOSITORY 650 MG RC (09:22)
[2024-09-26 09:31] LABS: Magnesium 1.9 mg/dl (1.6-2.3)
[2024-09-26 09:54] LABS: D-Dimer 1.14 ug/mL (0.0-0.5)
[2024-09-26] MEDS: RINGERS SOLUTION,LACTATED 500 ML 999 ML IV (10:02)
--- NOTE | 2024-09-26 11:24 | EXP.HP ---
History of Present Illness *Admission Date: 09/26/24 *Reason for visit:: confused from baseline, fever, hypotension *History of present illness: Ms. Bae is a 79-year-old female with history of advanced dementia, hypertension, hyperlipidemia, aortic insufficiency, long-term care resident at a nursing facility, long-term indwelling catheter, among other comorbidities. She presented from her alf today via EMS for evaluation for fever, hypoxia, and altered mental status. Patient has a history of recurrent urinary tract infections with chronic indwelling Mccoy catheter. She was found this morning in respiratory distress with oxygen saturations in the 70s. Placed on supplemental oxygen with improvement. Blood pressure was noted to be low when she was febrile to 102. Sent to the ER for evaluation. Treated with DuoNebs and sepsis workup initiated. Patient found to be septic with elevated white count. Chest imaging concerning for pneumonia. Abdominal imaging concerning for bladder wall thickening and UTI. Urine grossly abnormal. She is on broad-spectrum antibiotics and medicine consulted for severe sepsis/septic shock. Initially responded to fluid bolus, but blood pressure dropped necessitating initiation of norepinephrine. On evaluation, daughter at bedside. States she wants to attempt to treat the infections but does not want to get aggressive with resuscitation if things worsen. Patient had some response to questioning but is oriented only to self. Ill-appearing. Significant wet cough. Daughter states that patient does choke occasionally when she eats. [facility] Disclaimer: The information contained in this section may have been updated after the patient was seen, as this information can be updated by other users. 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 Falls Fracture of tubercle of left pubis Diastolic dysfunction Ambulatory dysfunction Peripheral arterial occlusive disease Bilateral primary osteoarthritis of hip Cerebral aneurysm, nonruptured Vitamin B12 deficiency anemia, unspecified Anxiety disorder, unspecified Dementia in other diseases classified elsewhere, unspecified severity, with other behavioral disturbance Bipolar disorder, current episode mixed, unspecified Obesity (BMI 30.0-34.9) Lumbar radicular pain Adrenal mass, left AAA (abdominal aortic aneurysm) without rupture Diverticulosis Tobacco use Surgical History History of laparotomy Social History Smoking Status: Former smoker tobacco type: cigarettes packs per day: 1 alcohol intake: never substance use type: denies use current occupational status: disabled Travel in the last 8 weeks: None household members: other housing: assisted living facility current occupational exposures/hazards: No caffeine: Yes Have you lived/traveled outside [place] in past 30 days?: No Contact w/someone who lives/traveled outside US past 30 days?: No Exposure to someone with infectious disease in past 14 days?: No Do you have a fever (greater than 100.4 F or 38 C)?: Yes Have you tested positive for COVID-19: No Exposed to someone with COVID-19 in past 14 days?: No Do you have a sore throat?: No Do you have a cough?: No Do you have any weakness?: No Do you have any diarrhea?: No Are you experiencing any unusual bleeding?: No Do you have any muscle aches/pain?: No Do you have any abdominal pain?: No Are you experiencing loss of taste or smell?: No Other Medical History Have you received the Flu Vaccine for this season: No Have you received the Pneumonia Vaccine: No (refused) Review of Systems Review of Systems Review of systems (narrative): 14 point review of systems performed, pertinent positives and negatives as per HPI Meds Home Medications and Allergies Home Medications ?Medication ?Instructions ?Recorded ?Confirmed ?Type donepezil 10 mg tablet 10 mg PO HS 01/02/20 09/26/24 History atorvastatin 40 mg tablet 40 mg PO HS 01/24/20 09/26/24 History albuterol sulfate 90 mcg/actuation 2 puff inhalation Q6HP PRN 01/29/22 09/26/24 History aerosol inhaler (Ventolin HFA) Shortness Of Breath fluoxetine 40 mg capsule 40 mg PO DAILY 07/23/23 09/26/24 History memantine 28 mg capsule 28 mg PO DAILY 07/23/23 09/26/24 History sprinkle,extended release 24hr docusate sodium 100 mg capsule 100 mg PO BID 07/24/23 09/26/24 History cranberry extract 425 mg capsule 850 mg PO DAILY 08/06/23 09/26/24 History multivitamin 1 tab PO DAILY 08/06/23 09/26/24 History risperidone 0.5 mg tablet 0.5 mg PO BID 10/19/23 09/26/24 History aspirin 81 mg chewable tablet 81 mg PO DAILY #90 tabs 05/05/24 09/26/24 Rx (Aspirin Children[facility]) lorazepam 1 mg tablet 1 mg PO BID #60 tabs 05/19/24 09/26/24 Rx gabapentin 600 mg tablet 600 mg PO BID #60 tabs 06/28/24 09/26/24 Rx conjugated estrogens 0.625 mg/gram 1 applic vaginal .3 TIMES PER WEEK 07/30/24 09/26/24 History vaginal cream acetaminophen 500 mg tablet 500 mg PO Q4HP PRN Fever Or Pain 08/30/24 09/26/24 History acetaminophen 500 mg tablet 500 mg PO TID 08/30/24 09/26/24 History aluminum hydrox-magnesium carb 95 30 ml PO Q4HP PRN GI upset 08/30/24 09/26/24 History mg-358 mg/15 mL oral suspension (Acid Gone Antacid) dextromethorphan-guaifenesin 5 10 ml PO Q6HP PRN Cough 08/30/24 09/26/24 History mg-100 mg/5 mL oral liquid (Robitussin Cough-Chest Congestion DM) ondansetron HCl 4 mg tablet 4 mg PO Q6HP PRN Nausea 08/30/24 09/26/24 History New Prescriptions to Start Prescriptions: Allergies Allergy/AdvReac Type Severity Reaction Status Date / Time diphtheria toxoid,fluid Allergy Unknown Unknown Verified 09/26/24 15:20 (DIPHTHERIA TOXOID,FLUID) allergy reaction Penicillins (PENICILLINS) Allergy Unknown Unknown Verified 09/26/24 15:20 allergy reaction Sulfa (Sulfonamide Allergy Unknown Unknown Verified 09/26/24 15:20 Antibiotics) (SULFA allergy (SULFONAMIDE ANTIBIOTICS)) reaction tetanus and diphtheria Allergy Unknown Unknown Verified 09/26/24 15:20 toxoids (TETANUS & allergy DIPHTHERIA TOXOIDS) reaction codeine Allergy Unknown Verified 09/26/24 15:20 allergy reaction morphine Allergy Unknown Verified 09/26/24 15:20 allergy reaction Exam Data for Last 24 hours Vital signs and Labs for Last 24 Hours: Temp Pulse Resp BP Pulse Ox O2 Del Method O2 Flow Rate 99.1 F 78 26 H 93/69 L 95 Nasal Cannula 3 09/26/24 10:40 09/26/24 10:35 09/26/24 11:00 09/26/24 11:10 09/26/24 10:40 09/26/24 10:40 09/26/24 10:40 Laboratory Results - last 24 hr 09/26/24 08:00: WBC 19.8 H, RBC 3.43 L, Hgb 9.7 L, Hct 31.9 L, MCV 93.0, MCH 28.3, MCHC 30.4 L, RDW 15.2, Plt Count 230, MPV 11.1 H, Neut % (Auto) 75.5, Lymph % (Auto) 14.3, [place] % (Auto) 8.3, Eos % (Auto) 0.7, Baso % (Auto) 0.3, Neut # (Auto) 15.0 H, Lymph # (Auto) 2.8, [place] # (Auto) 1.7 H, Eos # (Auto) 0.1, Baso # (Auto) 0.1, Total Counted 100, Neutrophils % (Manual) 74, Lymphocytes % (Manual) 18, Monocytes % (Manual) 7, Eosinophils % (Manual) 1, Platelet Estimate Normal, RBC Morphology Normal, D-Dimer 1.14 H, Sodium 139, Potassium 4.5, Chloride 106, Carbon Dioxide 25, Anion Gap 12.5, BUN 25 H, Creatinine 1.20 H, Estimated GFR 43 L, Est GFR ( Amer) 52 L, Glucose 95, Calcium 8.8, Magnesium 1.9, Total Bilirubin 0.6, AST 32, ALT 22, Alkaline Phosphatase 181 H, Troponin I 0.01, C-Reactive Protein 186.3 H, NT-Pro-B Natriuret Pep 506 H, Total Protein 6.7, Albumin 3.5, Globulin 3.2, Albumin/Globulin Ratio 1.1, Lipase 51, Procalcitonin 0.149, TSH 2.27, Thyroxine (T4) 6.9 09/26/24 08:10: SARS-CoV-2 (PCR) Not detected, Influenza A Untype (PCR) Not detected, Influenza Type B (PCR) Not detected 09/26/24 08:19: VBG pH 7.48 H, VBG pCO2 33.0 L, VBG pO2 151.5 H, VBG HCO3 23.9, VBG Total CO2 24.9, VBG O2 Saturation 99.4 H, VBG Base Excess 0.4, VBG Lactic Acid 1.3 I & O for Last 24 hours: Intake & Output 09/23/24 09/24/24 09/25/24 09/26/24 23:59 23:59 23:59 23:59 Weight 68.039 kg Constitutional Constitutional: moderate distress, obese, chronically ill appearing and cooperative *Routine HEENT Exam Head: Present normocephalic Eye: Present EOMI and PERRL ENT: Present mucous membranes moist *Routine Neck Exam Neck: Present supple; Absent lymphadenopathy *Routine Respiratory Exam Respiratory: Present rhonchi, crackles (right lung field) and diminished air movement; Absent CTA bilaterally or wheezes *Routine Cardiovascular Exam Cardiovascular: Present RRR *Routine Abdominal Exam Abdominal: Present soft, normoactive bowel sounds and tenderness Comments: Moderate suprapubic tenderness to palpation. *Routine Rectal Exam Rectal:: deferred *Routine Genitalia Exam Genitalia:: deferred *Routine Extremities Exam Extremities: Absent cyanosis, clubbing or edema *Routine Skin Exam Skin: Present warm; Absent rash *Routine Neurological Exam Neurological: Present alert, altered mental status and moving all extremities Assessment and Plan *Assessment and plan (1) Septic shock: Status: Acute Category: Medical Code(s): A41.9 - Sepsis, unspecified organism; R65.21 - Severe sepsis with septic shock (2) Sepsis due to pneumonia: Status: Acute Category: Medical Code(s): J18.9 - Pneumonia, unspecified organism; A41.9 - Sepsis, unspecified organism (3) Urinary tract infection: Status: Acute Qualifiers: Hematuria presence: without hematuria Urinary tract infection type: acute cystitis Qualified Code(s): N30.00 - Acute cystitis without hematuria Category: Medical Code(s): N39.0 - Urinary tract infection, site not specified (4) Altered mental status: Status: Acute Category: Medical Code(s): R41.82 - Altered mental status, unspecified (5) Acute hypoxemic respiratory failure: Status: Acute Category: Medical Code(s): J96.01 - Acute respiratory failure with hypoxia (6) Obesity (BMI 30.0-34.9): Status: Resolved Category: Medical Code(s): E66.811 - Obesity, class 1 (7) Weakness: Status: Resolved Category: Medical Code(s): R53.1 - Weakness (8) AAA (abdominal aortic aneurysm) without rupture: Status: Chronic Qualifiers: Abdominal aorta location: unspecified Qualified Code(s): I71.40 - Abdominal aortic aneurysm, without rupture, unspecified Category: Medical Code(s): I71.40 - Abdominal aortic aneurysm, without rupture, unspecified (9) CAD (coronary artery disease): Status: Chronic Qualifiers: Associated angina: without angina Coronary Disease-Associated Artery/Lesion type: [place] artery [place] vs. transplanted heart: [place] heart Qualified Code(s): I25.10 - Atherosclerotic heart disease of [place] coronary artery without angina pectoris Category: Medical Code(s): I25.10 - Atherosclerotic heart disease of [place] coronary artery without angina pectoris (10) Anxiety disorder, unspecified: Status: Acute Category: Medical Code(s): F41.9 - Anxiety disorder, unspecified (11) Bladder dysfunction: Status: Acute Category: Medical Code(s): N31.9 - Neuromuscular dysfunction of bladder, unspecified (12) Indwelling Mccoy catheter present: Status: Acute Category: Medical Code(s): Z97.8 - Presence of other specified devices Plan 79-year-old female who presented from nursing facility with concern for fever and confusion. Found to be in septic shock. Suspect pneumonia and UTI. Discussed case with ER physician, request admission for further management of sepsis. I agreed to admit to the ICU. Continuing broad-spectrum antibiotics for healthcare acquired infections, norepinephrine for hypotension. High risk for decompensation. Discussed goals of care with daughter, wants to attempt to treat infections but also wants to keep her mother comfortable. Patient is DNR/DNI. Will monitor for improvement over the coming days and reevaluate goals pending response to therapy. Cultures pending. Problems addressed as follows:, Septic shock Aspiration versus healthcare acquired pneumonia UTI associated with chronic indwelling catheter - Patient meeting criteria for septic shock with hypotension nonresponsive to fluids necessitating vasopressors. White count of 19.8, fever to 101.1. Received sepsis bolus. Initiate norepinephrine, goal MAP greater than 65 -Urine, blood, sputum cultures pending. -Will initiate vancomycin and meropenem given patient's exposure to potential resistant pathogens from the alf and recurrent UTIs because of her catheter. Meropenem dosed 1g q8 hours. -Further management with antibiotics pending culture results and sensitivities. -Repeat CBC, CMP, magnesium ordered for the morning. -Urinalysis grossly abnormal with 2+ protein, positive for nitrate, 2+ leuk esterase, 10-20 white count and 2+ bacteria. -Per my review of chest CT, has consolidation of right lower lobe. Consistent with aspiration. Patient does have coughing and choking when she eats occasionally. Daughter wants to focus on comfort. Will still have speech evaluate patient to optimize nutrition consistency to decrease risk is much as possible for further aspiration and choking -Tylenol for fever - Ipratropium/albuterol every 6 hours scheduled, supplemental oxygen as needed for goal sats greater 90%. I am eaters REED: BUN 25, creatinine 1.2. Baseline creatinine 0.8. Monitor for improvement with treatment of sepsis and fluid resuscitation. Repeat CBC, CMP, magnesium ordered for the morning. Dementia: Polypharmacy Depression - continue donepezil 10 mg nightly, continue Prozac 40 mg daily, continue memantine 28 mg daily. Will decrease Ativan to 0.5 mg twice daily as needed to decrease risk for sedation but decrease risk for withdrawal as well. -Continue gabapentin twice daily for neuropathy. -Can Risperdal at decreased dose of 0.25 mg twice daily Patient is a long-term care resident. More or less bedbound. Generally interactive verbally but limited functionality with mobility. Has shown progressive decline. High risk for decompensation. DNR/DNI Comfort feeds Lovenox 40mg subcu daily
[2024-09-26 11:27] LABS: Adenovirus,PCR Not Detected (NotDetected); Bordetella Pertussis Not Detected (NotDetected); Chlamydophila Pneumoniae, PCR Not Detected (NotDetected); Coronavirus 19, PCR Not Detected (NotDetected); Coronavirus 229E Not Detected (NotDetected); Coronavirus NL63 Not Detected (NotDetected); Coronavirus OC43 Not Detected (NotDetected); Coronovirus HKU1,PCR Not Detected (NotDetected); Human Metapneumovirus Not Detected (NotDetected); Influenza A, PCR Not Detected (NotDetected); Influenza AH1, 2009 Not Detected (NotDetected); Influenza AH1, PCR Not Detected (NotDetected); Influenza AH3,PCR Not Detected (NotDetected); Influenza B, PCR Not Detected (NotDetected); Mycoplasma Pneumoniae, PCR Not Detected (NotDetected); Parainfluenza 1, PCR Not Detected (NotDetected); Parainfluenza 2, PCR Not Detected (NotDetected); Parainfluenza 3, PCR Not Detected (NotDetected); Parainfluenza 4, PCR Not Detected (NotDetected); Rhinovirus/Enterovirus Not Detected (NotDetected)
--- NOTE | 2024-09-26 11:36 | PC.NURSE ---
1136 aponte cath that was present on admission was removed per md saul request.Temp sensing aponte placed. New urine sample collected and urine sent to lab. Pt tolerated aponte cath placement, 1 attempt made.
--- NOTE | 2024-09-26 12:30 | PC.NURSE ---
RECEIVED REPORT FROM CASSANDRA KC
--- NOTE | 2024-09-26 12:30 | PC.NURSE ---
1230 Report called to Priti KC. Pt pending transport
[2024-09-26] MEDS: ENOXAPARIN 40MG/0.4ML SYRINGE 40 MG SUBCUT (12:41)
--- NOTE | 2024-09-26 12:50 | PC.NURSE ---
1248 pt transferred to room 261 by Priti KC
[2024-09-26 13:12] LABS: Respiratory Syncytial Virus Detected (NotDetected)
[2024-09-26] MEDS: 0.9 % SODIUM CHLORIDE 1000ML 500 ML 999 ML IV (13:30)
[2024-09-26 13:34] LABS: Troponin I 0.01 ng/ml (0.00-0.034)
[2024-09-26] MEDS: LACTATED RINGERS 1000ML 500 ML 250 ML IV (13:50)
--- NOTE | 2024-09-26 13:52 | P.CONPHA_ITS ---
Pharmacy Intervention Comments: home medication list verified using list from [facility]
--- NOTE | 2024-09-26 13:52 | HMH.PHAINT1 ---
Pharmacy Intervention Comments: home medication list verified using list from [facility]
[2024-09-26] MEDS: NOREPINEPHRINE BITARTRATE/D5W 8 MG/250 ML PLAST..BAG 3.75 MG IV (14:02)
[2024-09-26 14:57] LABS: Appearance,Urine CLOUDY (Clear); Bilirubin,Urine Negative (Negative); Blood, Urine TRACE-I (Negative); Color,Urine DARK YELLOW (Yellow); Glucose,Urine (UA) Negative (Negative); Ketones,Urine Negative (Negative); Leukocyte Esterase,Urine 2+ (Negative); Nitrate,Urine POSITIVE (Negative); Protein,Urine 2+ (Negative); Specific Gravity, Urine <= 1.005 (1.005-1.030)
[2024-09-26 15:15] LABS: PH,Urine >= 9.0 (5.0-8.5)
[2024-09-26 15:18] LABS: Bacteria,Urine 2+ /lpf
[2024-09-26 15:22] LABS: Troponin I < 0.01 ng/ml (0.00-0.034)
--- NOTE | 2024-09-26 16:40 | EXP.PHA.CONS ---
Pharmacy Consult Date: 09/26/24 Time: 16:41 Referring provider: DR. COWAN Reason for Consult:: VANCOMYCIN Allergies Allergy/AdvReac Type Severity Reaction Status Date / Time diphtheria toxoid,fluid Allergy Unknown Unknown Verified 09/26/24 15:20 (DIPHTHERIA TOXOID,FLUID) allergy reaction Penicillins (PENICILLINS) Allergy Unknown Unknown Verified 09/26/24 15:20 allergy reaction Sulfa (Sulfonamide Allergy Unknown Unknown Verified 09/26/24 15:20 Antibiotics) (SULFA allergy (SULFONAMIDE ANTIBIOTICS)) reaction tetanus and diphtheria Allergy Unknown Unknown Verified 09/26/24 15:20 toxoids (TETANUS & allergy DIPHTHERIA TOXOIDS) reaction codeine Allergy Unknown Verified 09/26/24 15:20 allergy reaction morphine Allergy Unknown Verified 09/26/24 15:20 allergy reaction Home Medications ?Medication ?Instructions ?Recorded ?Confirmed ?Type donepezil 10 mg tablet 10 mg PO HS 01/02/20 09/26/24 History atorvastatin 40 mg tablet 40 mg PO HS 01/24/20 09/26/24 History albuterol sulfate 90 mcg/actuation 2 puff inhalation Q6HP PRN 01/29/22 09/26/24 History aerosol inhaler (Ventolin HFA) Shortness Of Breath fluoxetine 40 mg capsule 40 mg PO DAILY 07/23/23 09/26/24 History memantine 28 mg capsule 28 mg PO DAILY 07/23/23 09/26/24 History sprinkle,extended release 24hr docusate sodium 100 mg capsule 100 mg PO BID 07/24/23 09/26/24 History cranberry extract 425 mg capsule 850 mg PO DAILY 08/06/23 09/26/24 History multivitamin 1 tab PO DAILY 08/06/23 09/26/24 History risperidone 0.5 mg tablet 0.5 mg PO BID 10/19/23 09/26/24 History aspirin 81 mg chewable tablet 81 mg PO DAILY #90 tabs 05/05/24 09/26/24 Rx (Aspirin [facility]) lorazepam 1 mg tablet 1 mg PO BID #60 tabs 05/19/24 09/26/24 Rx gabapentin 600 mg tablet 600 mg PO BID #60 tabs 06/28/24 09/26/24 Rx conjugated estrogens 0.625 mg/gram 1 applic vaginal .3 TIMES PER WEEK 07/30/24 09/26/24 History vaginal cream acetaminophen 500 mg tablet 500 mg PO Q4HP PRN Fever Or Pain 08/30/24 09/26/24 History acetaminophen 500 mg tablet 500 mg PO TID 08/30/24 09/26/24 History aluminum hydrox-magnesium carb 95 30 ml PO Q4HP PRN GI upset 08/30/24 09/26/24 History mg-358 mg/15 mL oral suspension (Acid Gone Antacid) dextromethorphan-guaifenesin 5 10 ml PO Q6HP PRN Cough 08/30/24 09/26/24 History mg-100 mg/5 mL oral liquid (Robitussin Cough-Chest Congestion DM) ondansetron HCl 4 mg tablet 4 mg PO Q6HP PRN Nausea 08/30/24 09/26/24 History New Prescriptions to Start Prescriptions: Height: 1.65 m Weight: 84.056 kg Laboratory Results:: Laboratory Results - last 24 hr 09/26/24 08:00: WBC 19.8 H, RBC 3.43 L, Hgb 9.7 L, Hct 31.9 L, MCV 93.0, MCH 28.3, MCHC 30.4 L, RDW 15.2, Plt Count 230, MPV 11.1 H, Neut % (Auto) 75.5, Lymph % (Auto) 14.3, [place] % (Auto) 8.3, Eos % (Auto) 0.7, Baso % (Auto) 0.3, Neut # (Auto) 15.0 H, Lymph # (Auto) 2.8, [place] # (Auto) 1.7 H, Eos # (Auto) 0.1, Baso # (Auto) 0.1, Total Counted 100, Neutrophils % (Manual) 74, Lymphocytes % (Manual) 18, Monocytes % (Manual) 7, Eosinophils % (Manual) 1, Platelet Estimate Normal, RBC Morphology Normal, D-Dimer 1.14 H, Sodium 139, Potassium 4.5, Chloride 106, Carbon Dioxide 25, Anion Gap 12.5, BUN 25 H, Creatinine 1.20 H, Estimated GFR 43 L, Est GFR ( Amer) 52 L, Glucose 95, Calcium 8.8, Magnesium 1.9, Total Bilirubin 0.6, AST 32, ALT 22, Alkaline Phosphatase 181 H, Troponin I 0.01, C-Reactive Protein 186.3 H, NT-Pro-B Natriuret Pep 506 H, Total Protein 6.7, Albumin 3.5, Globulin 3.2, Albumin/Globulin Ratio 1.1, Lipase 51, Procalcitonin 0.149, TSH 2.27, Thyroxine (T4) 6.9 09/26/24 08:10: Chlamy pneumoniae PCR Not detected, Adenovirus (PCR) Not detected, B. pertussis DNA (PCR) Not detected, Coronavirus OC43 (PCR) Not detected, Coronavirus HKU1 (PCR) Not detected, Coronavirus 229E (PCR) Not detected, SARS-CoV-2 (PCR) Not detected 09/26/24 08:10: SARS-CoV-2 (PCR) Not detected, Coronavirus NL63 (PCR) Not detected, Human Metapneumovir PCR Not detected, Influenza A (H1) PCR Not detected, Influ A (H1N1/09) PCR Not detected, Influenza A (H3) PCR Not detected, Influenza Type A (PCR) Not detected, Influenza A Untype (PCR) Not detected, Influenza Type B (PCR) Not detected 09/26/24 08:10: Influenza Type B (PCR) Not detected, M. pneumoniae (PCR) Not detected, Parainfluenza 1 (PCR) Not detected, Parainfluenza 2 (PCR) Not detected, Parainfluenza 3 (PCR) Not detected, Parainfluenza 4 (PCR) Not detected, RSV (PCR) Detected A, Entero/Rhino (PCR) Not detected 09/26/24 08:19: VBG pH 7.48 H, VBG pCO2 33.0 L, VBG pO2 151.5 H, VBG HCO3 23.9, VBG Total CO2 24.9, VBG O2 Saturation 99.4 H, VBG Base Excess 0.4, VBG Lactic Acid 1.3 09/26/24 09:01: Urine Color Dark yellow, Urine Appearance Cloudy, Urine pH >= 9.0 H, Ur Specific [place] <= 1.005, Urine Protein 2+ A, Urine Glucose (UA) Negative, Urine Ketones Negative, Urine Blood Trace-i, Urine Nitrate Positive A, Urine Bilirubin Negative, Urine Urobilinogen 1.0, Ur Leukocyte Esterase 2+ A, Urine RBC 5-10, Urine WBC 10-20, Ur Squamous Epith Cells 10-20, Urine Bacteria 2+ 09/26/24 11:32: Troponin I 0.01 09/26/24 14:22: Troponin I < 0.01 Medical History: Medical History Gross hematuria Indwelling Mccoy catheter present Bladder dysfunction Acute UTI Cellulitis of right lower extremity Left thyroid nodule Encounter for medical screening examination [id number] kidney injury Thyroid nodule 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 Falls Fracture of tubercle of left pubis Diastolic dysfunction Ambulatory dysfunction Peripheral arterial occlusive disease Bilateral primary osteoarthritis of hip Cerebral aneurysm, nonruptured Vitamin B12 deficiency anemia, unspecified Anxiety disorder, unspecified Dementia in other diseases classified elsewhere, unspecified severity, with other behavioral disturbance Bipolar disorder, current episode mixed, unspecified Obesity (BMI 30.0-34.9) Lumbar radicular pain Adrenal mass, left AAA (abdominal aortic aneurysm) without rupture Diverticulosis Tobacco use Assessment and Plan Assessment and plan all Dx Assessment and Plan for all problems:: Pharmacokinetic dosing service Objective: Patient: Floor: Age: 79 yo Serum creatinine: 1.2 mg/dL Height: 65.0 Inches Weight (kg): 84 Assessment: IBW (kg): 57.00 Dosing wt(kg): 84 Estimated Creatinine clearance (ml/min): 34.2 CRCL method: Cockcroft and Gault using ibw(default). Drug selected: Vancomycin Loading dose (mg): 0 Vd (liters): 67.2 (factor used: 0.8 L/kg) Matti (hr-1): 0.033 Half life (hrs): 21.00 Recommended dose: 1250 mg Interval: 24 hrs Infusion time (hrs): 2.0 Predicted peak (mcg/mL): 32.9 Predicted trough (mcg/mL): 15.92 Total body weight is being used for vancomycin dosing. Recommendations: Give Vancomycin 1250 mg q 24 hrs with an expected Cpeak of 32.9 mcg/ml and an expected Ctrough of 15.92 mcg/ml ----Vanco only - ignore for aminoglycosides----- CLvanco= 2.22 L/hr AUC 0-24 /KIAN Data: KIAN 0.5 mcg/mL: AUC/KIAN: 1126.1 KIAN 1.0 mcg/mL: AUC/KIAN: 563.1 --------- KIAN 1.5 mcg/mL: AUC/KIAN: 375.4 KIAN 2.0 mcg/mL: AUC/KIAN: 281.5
--- NOTE | 2024-09-26 18:17 | PC.WOUNDNOTE ---
5cm x 8cm
[2024-09-26] MEDS: MEROPENEM 1 GM in 0.9 % SODIUM CHLORIDE 100 ML IV (18:51)
[2024-09-26] MEDS: IPRATROPIUM/ALBUTEROL 3 ML NEB IH ×2 (18:59→23:36)
[2024-09-26] MEDS: risperiDONE 0.25MG TABLET 0.25 MG PO (20:49)
[2024-09-26] MEDS: GABAPENTIN 600MG TABLET 600 MG PO (20:49)
[2024-09-26] MEDS: DONEPEZIL 10MG TAB 10 MG PO (20:49)
[2024-09-26] MEDS: DOCUSATE SODIUM 100 MG CAPSULE PO (20:49)
[2024-09-26] MEDS: MEMANTINE 10MG TABLET 10 MG PO (20:50)
[2024-09-27] VITALS (18 sets, daily range): BP systolic 88–116; BP diastolic 50–74; PULSE 48–79; RESP 12–26; TEMP 36.5–37.4; O2SAT 89–96; BMI 29.7
[2024-09-27] MEDS: MEROPENEM 1 GM in 0.9 % SODIUM CHLORIDE 100 ML IV ×3 (02:56→18:25)
[2024-09-27] MEDS: IPRATROPIUM/ALBUTEROL 3 ML NEB IH ×4 (06:25→22:52)
[2024-09-27 06:47] LABS: Basophils % 0.2 % (0.1-2.0); Hematocrit 27.7 % (37.0-47.0); Lymphocytes # 1.8 K/mm3 (0.7-4.5); Lymphocytes % 8.5 % (10-50); Mean Corpuscular Hemoglobin 27.9 pg (27.0-31.2); Mean Platelet Volume 11.3 fl (7.4-10.4); Monocytes # 1.4 K/mm3 (0.1-1.0); Monocytes % 6.7 % (1.7-9.3); Neutrophils # 17.6 K/mm3 (1.8-7.8); Neutrophils % 83.4 % (37.0-80.0); Platelet Count 234 K/mm3 (142-424); Red Blood Count 2.98 M/mm3 (4.20-5.40); White Blood Count 21.1 K/mm3 (4.8-10.8)
[2024-09-27 06:52] LABS: Hemoglobin 8.3 g/dL (12.2-16.2)
[2024-09-27 06:53] LABS: MANUAL DIFFERENTIAL MANUAL DIFFERENTIAL (MANUAL DIFF)
[2024-09-27 07:00] LABS: Alanine Aminotransferase 20 U/L (12-78); Albumin Level 2.8 g/dl (3.5-5.0); Albumin/Globulin Ratio 0.9 (1.1-1.8); Alkaline Phosphatase 146 U/L (38-126); Anion Gap 10.2 mEq/L (5-15); Aspartate Amino Transferase 28 U/L (14-36); Blood Urea Nitrogen 21 mg/dl (7-17); Calcium 8.9 mg/dl (8.4-10.2); Carbon Dioxide 24 mmol/L (22.0-30.0); Chloride 111 mmol/L (98-107); Creatinine Clearance Estimated 58 mL/min (50-200); Estimated Glomerular Filt Rate 60 ml/min (>60); GFR (African American) 73 ML/MIN (>60); Glucose 95 mg/dl (74-100); Potassium 4.2 mmoL/L (3.5-5.1); Sodium 141 mmol/L (136-145); Total Protein,Serum 5.8 g/dl (6.3-8.2)
[2024-09-27 07:01] LABS: Bilirubin,Total < 0.1 mg/dl (0.2-1.3)
--- NOTE | 2024-09-27 08:24 | P.PN_ITS ---
Subjective *Date: 09/27/24 *Time: 16:10 Interval history: Patient's blood pressure stabilized. Off of norepinephrine since 7 PM last night. No chest pain. Stable on 2 L which I believe is patient's baseline. Awaiting speech eval for diet advancement. Afebrile. Sleeping on exam. Awoke to stimuli. Medical Exam Vital signs and Labs for Last 24 Hours: Vital Signs Temp Pulse Pulse Resp BP BP Pulse Ox 09/27/24 08:00 98.9 F 66 15 91/50 L 93 L 09/27/24 07:00 70 13 88/56 L 92 L 09/27/24 06:00 58 L 12 93/53 L 94 L 09/27/24 05:00 56 L 19 108/67 L 94 L 09/27/24 04:00 58 L 12 113/72 93 L 09/27/24 04:00 60 09/27/24 04:00 99.4 F 09/27/24 03:00 55 L 12 111/65 95 09/27/24 02:00 56 L 26 H 110/67 92 L 09/27/24 01:00 64 15 102/61 L 89 L 09/27/24 00:00 48 L 09/27/24 00:00 97.7 F 63 14 99/56 L 94 L 09/26/24 23:37 52 L 09/26/24 23:37 53 L 09/26/24 23:37 95 09/26/24 23:00 51 L 14 102/59 L 96 09/26/24 23:00 09/26/24 22:00 49 L 12 115/60 95 09/26/24 21:52 98.8 F 09/26/24 21:30 51 L 13 116/62 94 L 09/26/24 21:00 50 L 12 132/80 96 09/26/24 21:00 09/26/24 20:30 58 L 12 123/76 93 L 09/26/24 20:00 09/26/24 20:00 61 13 114/70 93 L 09/26/24 20:00 60 09/26/24 19:30 64 13 117/72 89 L 09/26/24 19:01 54 L 14 152/85 H 98 09/26/24 19:00 54 L 16 152/85 H 98 09/26/24 19:00 54 L 16 152/85 H 98 09/26/24 19:00 09/26/24 18:59 54 L 09/26/24 18:59 56 L 09/26/24 18:59 94 L 09/26/24 18:30 54 L 16 116/55 L 95 09/26/24 18:00 59 L 14 120/48 L 95 09/26/24 18:00 55 L 12 120/48 L 96 09/26/24 17:30 52 L 19 119/61 95 09/26/24 17:20 09/26/24 17:00 58 L 14 114/42 L 94 L 09/26/24 16:30 58 L 14 112/51 L 94 L 09/26/24 16:00 58 L 94 L 09/26/24 16:00 63 12 112/50 L 96 09/26/24 16:00 60 09/26/24 16:00 60 14 96 09/26/24 16:00 97.9 F 09/26/24 15:30 58 L 13 114/48 L 93 L 09/26/24 15:05 09/26/24 15:00 60 16 90/34 L 93 L 09/26/24 14:30 64 14 96/45 L 92 L 09/26/24 14:00 59 L 22 96/45 L 92 L 09/26/24 13:30 63 12 90/42 L 95 09/26/24 13:05 09/26/24 13:00 63 16 83/28 L 94 L 09/26/24 13:00 93 L 09/26/24 12:53 98.2 F 68 18 110/57 L 09/26/24 12:30 98.2 F 68 20 95/60 L 95 09/26/24 12:10 98.2 F 11 L 103/58 L 09/26/24 12:00 98.4 F 69 23 102/61 L 96 09/26/24 11:50 98.4 F 68 13 113/57 L 96 09/26/24 11:40 98.2 F 16 09/26/24 11:40 106/60 L 09/26/24 11:30 118/69 09/26/24 11:21 128/66 09/26/24 11:10 93/69 L 09/26/24 11:00 26 H 95/61 L 09/26/24 10:50 113/60 09/26/24 10:50 13 09/26/24 10:40 99.1 F 110/61 95 09/26/24 10:35 78 20 96/50 L 95 09/26/24 10:30 79 25 H 93/53 L 95 09/26/24 10:20 82 26 H 96/57 L 95 09/26/24 10:10 81 25 H 96/49 L 95 09/26/24 10:00 83 14 108/54 L 96 09/26/24 09:55 80/52 L 09/26/24 09:50 86 15 93/51 L 96 09/26/24 09:50 93/51 L 09/26/24 09:40 95/54 L 09/26/24 09:40 82 16 99 09/26/24 09:34 96/58 L 09/26/24 09:34 82 13 100 09/26/24 09:30 83/54 L 09/26/24 09:30 74 27 H 99 09/26/24 09:20 69 15 98 09/26/24 09:20 98/63 L 09/26/24 09:16 70 22 97 09/26/24 09:14 69 20 111/69 95 09/26/24 09:14 72 16 95 09/26/24 08:52 72 15 92/51 L 95 09/26/24 08:50 72 16 88/48 L 95 09/26/24 08:45 71 15 95 09/26/24 08:40 72 15 90/52 L 96 09/26/24 08:30 69 14 90/57 L 95 09/26/24 08:27 101.1 F H 77 20 95/59 L 93 L O2 Del Method O2 Flow Rate 09/27/24 08:00 Nasal Cannula 2 09/27/24 07:00 Nasal Cannula 2 09/27/24 06:00 Nasal Cannula 2 09/27/24 05:00 Nasal Cannula 2 09/27/24 04:00 Nasal Cannula 2 09/27/24 04:00 09/27/24 04:00 09/27/24 03:00 Nasal Cannula 2 09/27/24 02:00 Nasal Cannula 2 09/27/24 01:00 Nasal Cannula 2 09/27/24 00:00 09/27/24 00:00 Nasal Cannula 2 09/26/24 23:37 09/26/24 23:37 09/26/24 23:37 Nasal Cannula 2 09/26/24 23:00 Nasal Cannula 2 09/26/24 23:00 Nasal Cannula 2 09/26/24 22:00 Nasal Cannula 2 09/26/24 21:52 09/26/24 21:30 Nasal Cannula 2 09/26/24 21:00 Nasal Cannula 2 09/26/24 21:00 Nasal Cannula 2 09/26/24 20:30 Nasal Cannula 2 09/26/24 20:00 Nasal Cannula 2 09/26/24 20:00 Nasal Cannula 2 09/26/24 20:00 09/26/24 19:30 Nasal Cannula 2 09/26/24 19:01 Nasal Cannula 2 09/26/24 19:00 Nasal Cannula 3 09/26/24 19:00 Nasal Cannula 3 09/26/24 19:00 Nasal Cannula 3 09/26/24 18:59 09/26/24 18:59 09/26/24 18:59 Nasal Cannula 3 09/26/24 18:30 Nasal Cannula 3 09/26/24 18:00 09/26/24 18:00 Nasal Cannula 3 09/26/24 17:30 Nasal Cannula 3 09/26/24 17:20 Nasal Cannula 3 09/26/24 17:00 09/26/24 16:30 Nasal Cannula 3 09/26/24 16:00 Nasal Cannula 3 09/26/24 16:00 Nasal Cannula 3 09/26/24 16:00 09/26/24 16:00 09/26/24 16:00 09/26/24 15:30 Nasal Cannula 3 09/26/24 15:05 Nasal Cannula 3 09/26/24 15:00 Nasal Cannula 3 09/26/24 14:30 Nasal Cannula 3 09/26/24 14:00 Nasal Cannula 09/26/24 13:30 Nasal Cannula 3 09/26/24 13:05 Nasal Cannula 3 09/26/24 13:00 Nasal Cannula 3 09/26/24 13:00 Nasal Cannula 3 09/26/24 12:53 Nasal Cannula 3 09/26/24 12:30 Nasal Cannula 3 09/26/24 12:10 09/26/24 12:00 Nasal Cannula 3 09/26/24 11:50 Nasal Cannula 3 09/26/24 11:40 09/26/24 11:40 09/26/24 11:30 09/26/24 11:21 09/26/24 11:10 09/26/24 11:00 09/26/24 10:50 09/26/24 10:50 09/26/24 10:40 Nasal Cannula 3 09/26/24 10:35 09/26/24 10:30 Nasal Cannula 3 09/26/24 10:20 Nasal Cannula 09/26/24 10:10 Nasal Cannula 3 09/26/24 10:00 Nasal Cannula 3 09/26/24 09:55 09/26/24 09:50 09/26/24 09:50 09/26/24 09:40 09/26/24 09:40 09/26/24 09:34 09/26/24 09:34 09/26/24 09:30 09/26/24 09:30 09/26/24 09:20 09/26/24 09:20 09/26/24 09:16 09/26/24 09:14 09/26/24 09:14 09/26/24 08:52 09/26/24 08:50 09/26/24 08:45 09/26/24 08:40 09/26/24 08:30 09/26/24 08:27 Nasal Cannula 4 Intake and Output 09/26/24 09/27/24 09/27/24 23:59 07:59 15:59 Intake Total 1515.035 / 3120.693 100 / 100 Output Total 1050 / 1240 365 / 365 Balance 465.035 / 1880.693 -265 / -265 Intake: Intake, Oral Amount 0 / 0 Intake, Total IV Amount 1515.035 / 3120.693 100 / 100 0.9 % Sodium Chloride 1000ML 500 / 500 500 ml @ 999 mls/hr IV .Q31M ONE Rx#:[id number] Lactated Ringers 1000ML 500 ml 500 / 500 @ 250 mls/hr IV .Q2H ONE Rx#: [id number] Meropenem 1 gm In 0.9 % Sodium 100 / 100 100 / 100 Chloride 100 ml @ 100 mls/hr IV Q8H [facility] Rx#:[id number] Vancomycin/Water For Inj (Peg) 387 / 387 1.25 gm In 250 ml @ 125 mls/hr IV 1300 [facility] Rx#:[id number] Output: Output, Urine Amount 650 / 650 Output, Urine Amount (Catheter) 400 / 590 365 / 365 Mccoy 400 / 590 365 / 365 Other: Number of Bowel Movements 1 Weight 84.056 kg 80.83 kg Patient Weight 09/27/24 23:59 Weight 80.83 kg Laboratory Results - last 24 hr 09/26/24 08:00: WBC 19.8 H, RBC 3.43 L, Hgb 9.7 L, Hct 31.9 L, MCV 93.0, MCH 28.3, MCHC 30.4 L, RDW 15.2, Plt Count 230, MPV 11.1 H, Neut % (Auto) 75.5, Lymph % (Auto) 14.3, [place] % (Auto) 8.3, Eos % (Auto) 0.7, Baso % (Auto) 0.3, Neut # (Auto) 15.0 H, Lymph # (Auto) 2.8, [place] # (Auto) 1.7 H, Eos # (Auto) 0.1, Baso # (Auto) 0.1, Total Counted 100, Neutrophils % (Manual) 74, Lymphocytes % (Manual) 18, Monocytes % (Manual) 7, Eosinophils % (Manual) 1, Platelet Estimate Normal, RBC Morphology Normal, D-Dimer 1.14 H, Sodium 139, Potassium 4.5, Chloride 106, Carbon Dioxide 25, Anion Gap 12.5, BUN 25 H, Creatinine 1.20 H, Estimated GFR 43 L, Est GFR ( Amer) 52 L, Glucose 95, Calcium 8.8, Magnesium 1.9, Total Bilirubin 0.6, AST 32, ALT 22, Alkaline Phosphatase 181 H, Troponin I 0.01, C-Reactive Protein 186.3 H, NT-Pro-B Natriuret Pep 506 H, Total Protein 6.7, Albumin 3.5, Globulin 3.2, Albumin/Globulin Ratio 1.1, Lipase 51, Procalcitonin 0.149, TSH 2.27, Thyroxine (T4) 6.9 09/26/24 08:10: Chlamy pneumoniae PCR Not detected, Adenovirus (PCR) Not detected, B. pertussis DNA (PCR) Not detected, Coronavirus OC43 (PCR) Not detect ed, Coronavirus HKU1 (PCR) Not detected, Coronavirus 229E (PCR) Not detected, SARS-CoV-2 (PCR) Not detected 09/26/24 08:10: SARS-CoV-2 (PCR) Not detected, Coronavirus NL63 (PCR) Not detected, Human Metapneumovir PCR Not detected, Influenza A (H1) PCR Not detected, Influ A (H1N1/09) PCR Not detected, Influenza A (H3) PCR Not detected, Influenza Type A (PCR) Not detected, Influenza A Untype (PCR) Not detected, Influenza Type B (PCR) Not detected 09/26/24 08:10: Influenza Type B (PCR) Not detected, M. pneumoniae (PCR) Not detected, Parainfluenza 1 (PCR) Not detected, Parainfluenza 2 (PCR) Not detected, Parainfluenza 3 (PCR) Not detected, Parainfluenza 4 (PCR) Not detected, RSV (PCR) Detected A, Entero/Rhino (PCR) Not detected 09/26/24 08:19: VBG pH 7.48 H, VBG pCO2 33.0 L, VBG pO2 151.5 H, VBG HCO3 23.9, VBG Total CO2 24.9, VBG O2 Saturation 99.4 H, VBG Base Excess 0.4, VBG Lactic Acid 1.3 09/26/24 09:01: Urine Color Dark yellow, Urine Appearance Cloudy, Urine pH >= 9.0 H, Ur Specific [place] <= 1.005, Urine Protein 2+ A, Urine Glucose (UA) Negative, Urine Ketones Negative, Urine Blood Trace-i, Urine Nitrate Positive A, Urine Bilirubin Negative, Urine Urobilinogen 1.0, Ur Leukocyte Esterase 2+ A, Urine RBC 5-10, Urine WBC 10-20, Ur Squamous Epith Cells 10-20, Urine Bacteria 2+ 09/26/24 11:32: Troponin I 0.01 09/26/24 14:22: Troponin I < 0.01 09/27/24 05:30: WBC 21.1 H*, RBC 2.98 L, Hgb 8.3 L D, Hct 27.7 L, MCV 93.0, MCH 27.9, MCHC 30.0 L, RDW 15.0, Plt Count 234, MPV 11.3 H, Neut % (Auto) 83.4 H, Lymph % (Auto) 8.5 L, [place] % (Auto) 6.7, Eos % (Auto) 0.0 L, Baso % (Auto) 0.2, Neut # (Auto) 17.6 H, Lymph # (Auto) 1.8, [place] # (Auto) 1.4 H, Eos # (Auto) 0.0, Baso # (Auto) 0.0, Sodium 141, Potassium 4.2, Chloride 111 H, Carbon Dioxide 24, Anion Gap 10.2, BUN 21 H, Creatinine 0.90 D, Estimated Creat Clear 58, Estimated GFR 60, Est GFR ( Amer) 73 D, Glucose 95, Calcium 8.9, Magnesium 2.0, Total Bilirubin < 0.1 L, AST 28, ALT 20, Alkaline Phosphatase 146 H, Total Protein 5.8 L, Albumin 2.8 L D, Globulin 3.0, Albumin/Globulin Ratio 0.9 L I & O for Labs for Last 24 Hours: Intake & Output 09/24/24 09/25/24 09/26/24 09/27/24 23:59 23:59 23:59 23:59 Intake Total 3120.693 / 3120.693 100 / 100 Output Total 1200 / 1240 365 / 365 Balance 1920.693 / 1880.693 -265 / -265 Weight 84.056 kg 80.83 kg Microbiology Reports for the Last 24 Hours: Microbiology 09/26/24 08:42 Urine,Catheterized Urine Culture - Preliminary Gram Negative Rods Constitutional: Present no acute distress, obese, chronically ill appearing and cooperative Head: Present atraumatic and normocephalic ENT: Present normal exam Respiratory: Present crackles (Right lung field) and normal respiratory effort; Absent rhonchi or wheezes Cardiac: Present Reg Rate and Rhythm GI: Present soft and normal bowel sounds; Absent distention or tenderness Comment:: Mccoy in place Extremities: Present normal inspection and full ROM; Absent tenderness Skin: Present intact; Absent erythema Neuro: Present Grossly Intact, alert and moves all extremities Assessment and Plan *Assessment and plan (1) Septic shock: Status: Acute Category: Medical Code(s): A41.9 - Sepsis, unspecified organism; R65.21 - Severe sepsis with septic shock (2) Sepsis due to pneumonia: Status: Acute Category: Medical Code(s): J18.9 - Pneumonia, unspecified organism; A41.9 - Sepsis, unspecified organism (3) Urinary tract infection: Status: Acute Qualifiers: Hematuria presence: without hematuria Urinary tract infection type: acute cystitis Qualified Code(s): N30.00 - Acute cystitis without hematuria Category: Medical Code(s): N39.0 - Urinary tract infection, site not specified (4) Altered mental status: Status: Acute Category: Medical Code(s): R41.82 - Altered mental status, unspecified (5) Acute hypoxemic respiratory failure: Status: Acute Category: Medical Code(s): J96.01 - Acute respiratory failure with hypoxia (6) Obesity (BMI 30.0-34.9): Status: Resolved Category: Medical Code(s): E66.811 - Obesity, class 1 (7) Weakness: Status: Resolved Category: Medical Code(s): R53.1 - Weakness (8) AAA (abdominal aortic aneurysm) without rupture: Status: Chronic Qualifiers: Abdominal aorta location: unspecified Qualified Code(s): I71.40 - Abdominal aortic aneurysm, without rupture, unspecified Category: Medical Code(s): I71.40 - Abdominal aortic aneurysm, without rupture, unspecified (9) CAD (coronary artery disease): Status: Chronic Qualifiers: Associated angina: without angina Coronary Disease-Associated Artery/Lesion type: [place] artery [place] vs. transplanted heart: [place] heart Qualified Code(s): I25.10 - Atherosclerotic heart disease of [place] coronary artery without angina pectoris Category: Medical Code(s): I25.10 - Atherosclerotic heart disease of [place] coronary artery without angina pectoris (10) Anxiety disorder, unspecified: Status: Acute Category: Medical Code(s): F41.9 - Anxiety disorder, unspecified (11) Bladder dysfunction: Status: Acute Category: Medical Code(s): N31.9 - Neuromuscular dysfunction of bladder, unspecified (12) Indwelling Mccoy catheter present: Status: Acute Category: Medical Code(s): Z97.8 - Presence of other specified devices (13) RSV (respiratory syncytial virus pneumonia): Status: Acute Category: Medical Code(s): J12.1 - Respiratory syncytial virus pneumonia Plan 79-year-old female who presented from nursing facility with concern for fever and confusion. Found to be in septic shock. Suspect pneumonia and UTI. Discussed case with ER physician, request admission for further management of sepsis. I agreed to admit to the ICU. Continuing broad-spectrum antibiotics for healthcare acquired infections, norepinephrine for hypotension. High risk for decompensation. Discussed goals of care with daughter, wants to attempt to treat infections but also wants to keep her mother comfortable. Patient is DNR/DNI. Patient able to wean off norepinephrine overnight. Showing some improvement in hemodynamic stability. Awaiting cultures. Continues to require inpatient management. Problems addressed as follows: Septic shock Aspiration versus healthcare acquired pneumonia UTI associated with chronic indwelling catheter - Patient meeting criteria for septic shock with hypotension nonresponsive to fluids necessitating vasopressors. White count of 19.8, fever to 101.1. Received sepsis bolus. Initiate norepinephrine, goal MAP greater than 65 -Urine, blood, sputum cultures pending. Urine growing gram-negative rods. Grew Morganella in May. Sensitive to cephalosporins and carbapenems. -Continue vancomycin, monitor for toxicity. Monitoring kidney function. Continue meropenem 1 g every 8 hours. Will adjust antibiotics pending cultures and sensitivity. -Repeat CBC, CMP, magnesium ordered for the morning. -Goal sats greater 90%. Currently on 2 L oxygen. -Discontinued norepinephrine -Speech evaluating today, will advance diet after evaluation. -Tylenol for fever - Ipratropium/albuterol every 6 hours scheduled REED: REED improved. BUN 21, creatinine 0.9. Appears to be her baseline. Discontinue IV fluids. Potassium 4.2, magnesium 2.0 Dementia: Polypharmacy Depression - continue donepezil 10 mg nightly, continue Prozac 40 mg daily, continue memantine 28 mg daily. Will decrease Ativan to 0.5 mg twice daily as needed to decrease risk for sedation but decrease risk for withdrawal as well. -Continue gabapentin twice daily for neuropathy. -Continue Risperdal at decreased dose of 0.25 mg twice daily Patient is a long-term care resident. More or less bedbound. Generally interactive verbally but limited functionality with mobility. Has shown progressive decline. High risk for decompensation. DNR/DNI Comfort feeds Lovenox 40mg subcu daily
[2024-09-27 09:20] LABS: Lymphocytes % 10 % (10-50); Monocytes % 5 % (2-9); Neutrophils % 85 % (42-76); Total Cells Counted 100
[2024-09-27 09:21] LABS: Platelet Estimate Normal; RBC Morphology Normal
[2024-09-27] MEDS: MEMANTINE 10MG TABLET 10 MG PO ×2 (09:22→20:06)
[2024-09-27] MEDS: risperiDONE 0.25MG TABLET 0.25 MG PO ×2 (09:22→20:06)
[2024-09-27] MEDS: GABAPENTIN 600MG TABLET 600 MG PO ×2 (09:22→20:06)
[2024-09-27] MEDS: FLUOXETINE 20MG CAPSULE 40 MG PO (09:23)
--- NOTE | 2024-09-27 09:26 | SW/DCPLANNER ---
Addendum entered by Symone Weaver 09/28/24 10:49: I have updated Colleen w/ [facility] that patient will return today. Per Colleen patient will continue [facility] level of care. Original Note: This patient currently resides at [facility] level of care. I will continue to follow up chaya Macias at [place] until patient is medically stable for discharge. Discharge date is unknown at this time.
[2024-09-27] MEDS: ENOXAPARIN 40MG/0.4ML SYRINGE 40 MG SUBCUT (09:28)
--- NOTE | 2024-09-27 11:10 | HMH.PTWOUND ---
Rehab Inpt Wound Evaluation Rehab IP Wound Evaluation Start: 09/26/24 15:33 Freq: ONCE Status: Active Protocol: Document 09/27/24 10:51 TERRI (Rec: 09/27/24 11:10 TERRI [id number]) Rehab PT Wound Assessment Subjective Subjective 79-year-old female with history of advanced dementia, hypertension, hyperlipidemia, aortic insufficiency, long- term care resident at a nursing facility, long-term indwelling catheter, among other comorbidities. She presented from her custodial via EMS for evaluation for fever, hypoxia, and altered mental status. Patient has a history of recurrent urinary tract infections with chronic indwelling Mccoy catheter. Unsure if she is completely bedbound at her facility, but her mobility is definitely severely limited at baseline. She presents with a wound to her sacral area upon admission. Wound Sacrum Wound Type Pressure Ulcer Is This a Chronic Wound Yes Wound Staging Stage II Query Text:Stage I - Unbroken, red skin, no blanching. Stage II - Skin broken, superficial skin loss involving epidermis alone or also dermis. Partial loss of skin layers. Stage III - Pressure area involves epidermis, dermis and subcutaneous tissue, full thickness skin loss. Stage IV - Pressure area involves epidermis, subcutaneous tissue, bone and other supportive tissue. Full thickness skin loss with extensive destruction of underlying tissue and structures. Wound Length (cm) 1.5 Wound Width (cm) 2.5 Wound Depth (cm) 0.1 Wound Bed Appearance [place] Wound Margins Description Well Defined Surrounding Tissue Appearance [place] Wound Drainage Description Serosanguineous Drainage [place] Primary Dressing Composite Dressing Change Patient Tolerance Tolerated Well Plan/Recommendation Comment Currently pt has no needs for excisional debridement of her wound and [facility] staff is performing appropriate dressing changes and pressure relief per protocols. Thank you for involving the wound care team in the care of this patient. Eval Complexity Eval Charge Codes 77155 - High Complexity PHYSICIAN CERTIFICATION: I certify the specified therapy services for Mary Bae are required, authorized, and reviewed every 30 days.
[2024-09-27] MEDS: SODIUM CHLORIDE 3% 15ML NEB 3 ML IH (11:35)
--- NOTE | 2024-09-27 13:36 | HMH.SLDYSPHA ---
Speech & Language Evaluation Speech/Language Dysphagia Evaluation Start: 09/27/24 13:30 Freq: ONCE Status: Active Protocol: Document 09/27/24 13:30 [facility] (Rec: 09/27/24 13:36 [facility] [id number]) Dysphagia Assess/Goals/Plan Assessment Date of Evaluation: 09/27/24 Evaluation Type Initial Certification Assessment/Problems dysphagia per MD order Does Patient Qualify for Service Yes Qualify/Failure Comment Based on clinical observations , pt would benefit from followup for skilled speech therapy services to address diet texture analysis and diet tolerance. Recommendations PHYSICIAN CERTIFICATION: The specified therapy services are required, authorized, and reviewed every 30 days. Pt will be seen # times/week 1 for # weeks 4 Diet Recommendations Mechanical Soft Liquid Type Recommendations Normal/Thin SL Swallow Guidelines Assist w/all meals,Alt bite w/ sip thru meal,Standard Aspiration Prec.,Chk mough for pocketing,Crush meds as allowed*,Oral care pre/post meals Crush Meds Crush all meds Dysphagia Swallow Precautions/Strategies Sitting Upright (90 deg),Small Bites and Sips,Alternate Liquids/Solids Place Food on Either side of Mouth Plan Anticipate reaching STG in # weeks 2 Anticipate reaching LTG in # weeks 4 Pt/Guardian verbally ack understanding Yes of dx/prognosis/goals G -code Required No Education Instructions provided Discussed results of CSE, diet recommendations, aspiration risks/precautions, and compensatory strategies with pt, nursing, and care management all of which expressed understanding. Pt/Caregiver able to recall information Able to recall/restate Reinforcement needed No Speech & Language HPI History Present Illness Description of Patient Problem PLUCK SEPARATOR pulled following information from chart review. Ms. Bae is a 79-year-old female with history of advanced dementia, hypertension, hyperlipidemia, aortic insufficiency, long- term care resident at a nursing facility, long-term indwelling catheter, among other comorbidities. She presented from her residential today via EMS for evaluation for fever, hypoxia, and altered mental status. Patient has a history of recurrent urinary tract infections with chronic indwelling Mccoy catheter. She was found this morning in respiratory distress with oxygen saturations in the 70s. Placed on supplemental oxygen with improvement. Blood pressure was noted to be low when she was febrile to 102. Sent to the ER for evaluation. Treated with DuoNebs and sepsis workup initiated. Patient found to be septic with elevated white count. Chest imaging concerning for pneumonia. Abdominal imaging concerning for bladder wall thickening and UTI. Urine grossly abnormal. She is on broad- spectrum antibiotics and medicine consulted for severe sepsis/septic shock. Initially responded to fluid bolus, but blood pressure dropped necessitating initiation of norepinephrine. On evaluation, daughter at bedside. States she wants to attempt to treat the infections but does not want to get aggressive with resuscitation if things worsen . Patient had some response to questioning but is oriented only to self. Ill-appearing. Significant wet cough. Daughter states that patient does choke occasionally when she eats. CXR reports IMPRESSION: Right basilar density which may represent atelectasis or scarring. Language Primary Language Romansh General Information General Current Food Consistancy NPO Dentition Poor Dentition Oxygen Status Room Air Dysphagia:Food Presentation Evaluation Food Type Pureed,Mechanical Soft,Liquid, Pudding Dysphagia Evaluation Summary PLUCK SEPARATOR completed extensive oral care prior to administering CSE. Pt waxed and waned alertness and required sternal rub to be aroused. PLUCK SEPARATOR presents thin liquids (ice, spoonful, open cup and straw sips), pudding, pureed applesauce, and mechanical soft (nutrigrain bar.) Regular not trialed given pt's extended latency time for mastication with MS. PLUCK SEPARATOR trialled all consistencies x3 to assess for consistency and/ or fatigue. No overt s/sxs of aspiration observed. Given pt' s altered mental status and difficulty with mastication, pt would benefit from mechanical soft ground/thin diet with assist during meals. PLUCK SEPARATOR will follow up for diet tolerance. Stroke Dysphagia Assessment PHYSICIAN CERTIFICATION: I certify the specified therapy services for Mary Bae are required, authorized, and reviewed every 30 days.
[2024-09-27] MEDS: VANCOMYCIN/WATER FOR INJ (PEG) 1.25 GM/250 ML PIGGYBACK IV (13:43)
[2024-09-27] MEDS: HYALURONIDASE, HUMAN RECOMB. 150 UNIT/ML VIAL IJ (15:02)
--- NOTE | 2024-09-27 15:27 | PC.NURSE ---
Vancomycin infiltrated in left upper arm. Hyaluronidase medication given and cold compress applied.
--- NOTE | 2024-09-27 18:20 | PC.NURSE ---
arrived by bed from ICU
[2024-09-27] MEDS: DOCUSATE SODIUM 10 ML/UDC UDC PO (20:06)
[2024-09-27] MEDS: DONEPEZIL 10MG TAB 10 MG PO (20:06)
[2024-09-28] VITALS: BP 97/60; PULSE 101; RESP 16; TEMP 36.6; O2SAT 92
[2024-09-28] MEDS: MEROPENEM 1 GM in 0.9 % SODIUM CHLORIDE 100 ML IV ×2 (02:34→10:28)
--- NOTE | 2024-09-28 03:54 | PC.NURSE ---
Patient is alert to herself; she was noted to be pleasantly confused but can answer some questions appropriately. Patient was observed to have eyes closed, respirations even and unlabored on 2 L of oxygen via nasal cannula, and no apparent distress for the majority of the night. She has remained in bed this shift and is dependent on staff for turning/repositioning. A bed bath was given during this shift; the dressing over her pressure area located on her coccyx was also changed due to soiling. A chronic Mccoy remains in place; urine output has been emptied and documented accordingly. Urine appearance transparent and yellow. Auscultation of her heart and bowels were within normal findings. Patient is incontinent of stool. During auscultation of her lungs, her left lung appeared to sound more diminished compared to the right lung. An intermittent, loose cough was noted from her this shift; however, it is non-productive at this time. Scheduled medications were administered per OCT; pills were given with applesauce to aid with swallowing. With minimal coaching, the patient swallowed applesauce with pills, as well as strawberry Jello (for a bedtime snack) and ice water, without any difficulties. Patient was maintained upright, at a 90 degree angle, during her medication administration and assisted feeding of soft mechanical food items. She tolerates her diet very well. Patient has had soft blood pressures this shift. At this time, the patient is resting in bed without any further complaints. No acute changes noted thus far. Bed alarm on. Call light within reach. Droplet precautions ongoing for RSV.
[2024-09-28 04:00] VITALS: BP 107/67; PULSE 60; RESP 18; TEMP 36.6; O2SAT 95; BMI 29.2
[2024-09-28] MEDS: IPRATROPIUM/ALBUTEROL 3 ML NEB IH (06:34)
[2024-09-28 06:35] VITALS: PULSE 68; PULSE 72
[2024-09-28 06:39] VITALS: O2SAT 92
[2024-09-28 07:54] LABS: Alanine Aminotransferase 22 U/L (12-78); Albumin Level 2.9 g/dl (3.5-5.0); Alkaline Phosphatase 134 U/L (38-126); Anion Gap 9.1 mEq/L (5-15); Aspartate Amino Transferase 29 U/L (14-36); Bilirubin,Total 0.2 mg/dl (0.2-1.3); Blood Urea Nitrogen 17 mg/dl (7-17); Calcium 8.9 mg/dl (8.4-10.2); Carbon Dioxide 27 mmol/L (22.0-30.0); Chloride 109 mmol/L (98-107); Creatinine Clearance Estimated 57 mL/min (50-200); Estimated Glomerular Filt Rate 60 ml/min (>60); GFR (African American) 73 ML/MIN (>60); Globulin 2.9 g/dL (1.3-3.2); Glucose 80 mg/dl (74-100); Magnesium 1.8 mg/dl (1.6-2.3); Potassium 4.1 mmoL/L (3.5-5.1); Sodium 141 mmol/L (136-145); Total Protein,Serum 5.8 g/dl (6.3-8.2)
[2024-09-28 08:00] VITALS: BP 125/71; PULSE 63; RESP 16; TEMP 36.7; O2SAT 94
[2024-09-28 08:10] LABS: Basophils # 0.1 K/mm3 (0-0.2); Basophils % 0.3 % (0.1-2.0); Eosinophils # 0.5 K/mm3 (0.0-0.4); Eosinophils % 2.6 % (0.1-12.0); Hematocrit 27.5 % (37.0-47.0); Hemoglobin 8.5 g/dL (12.2-16.2); Lymphocytes # 2.1 K/mm3 (0.7-4.5); Lymphocytes % 11.5 % (10-50); Mean Corpuscular HGB Conc 30.9 g/dL (31.8-35.4); Mean Corpuscular Hemoglobin 28.7 pg (27.0-31.2); Mean Corpuscular Volume 92.9 fl (81-99); Mean Platelet Volume 10.6 fl (7.4-10.4); Monocytes # 1.3 K/mm3 (0.1-1.0); Neutrophils # 13.9 K/mm3 (1.8-7.8); Neutrophils % 77.4 % (37.0-80.0); Platelet Count 240 K/mm3 (142-424); Red Blood Count 2.96 M/mm3 (4.20-5.40); Red Cell Distribution Width 15.1 % (11.5-17.5); White Blood Count 17.9 K/mm3 (4.8-10.8)
[2024-09-28 08:27] VITALS: BMI 29.2
[2024-09-28] MEDS: FLUOXETINE 20MG CAPSULE 40 MG PO (08:45)
[2024-09-28] MEDS: MEMANTINE 10MG TABLET 10 MG PO (08:46)
[2024-09-28] MEDS: ENOXAPARIN 40MG/0.4ML SYRINGE 40 MG SUBCUT (08:46)
[2024-09-28] MEDS: risperiDONE 0.25MG TABLET 0.25 MG PO (08:48)
[2024-09-28] MEDS: GABAPENTIN 600MG TABLET 600 MG PO (08:48)
[2024-09-28] MEDS: DOCUSATE SODIUM 10 ML/UDC UDC PO (08:49)
[2024-09-28 08:51] LABS: MANUAL DIFFERENTIAL MANUAL DIFFERENTIAL (MANUAL DIFF)
[2024-09-28 11:08] LABS: Eosinophils % 1 % (0-3); Lymphocytes % 15 % (10-50); Monocytes % 3 % (2-9); Neutrophils % 81 % (42-76); Nucleated Red Blood Cells 1; Platelet Estimate Normal; RBC Morphology Normal; Total Cells Counted 100
[2024-09-28 11:45] VITALS: BP 119/81; PULSE 64; RESP 17; TEMP 36.8; O2SAT 93
[2024-09-28] MEDS: CEFTRIAXONE 1 GM 1 GM in 0.9 % SODIUM CHLORIDE 50 ML IV (11:49)
--- NOTE | 2024-09-28 12:02 | EXP.DC.SUM ---
General Admission date:: 09/26/24 HPI HPI HPI: Ms. Bae is a 79-year-old female with history of advanced dementia, hypertension, hyperlipidemia, aortic insufficiency, long-term care resident at a nursing facility, long-term indwelling catheter, among other comorbidities. [facility] her [facility] EMS for evaluation for fever, hypoxia, and altered mental status. Patient has a history of recurrent urinary tract infections with chronic indwelling Mccoy catheter. She was found this morning in respiratory distress with oxygen saturations in the 70s. Placed on supplemental oxygen with improvement. Blood pressure was noted to be low when she was febrile to 102. Sent to the ER for evaluation. Treated with DuoNebs and sepsis workup initiated. Patient found to be septic with elevated white count. Chest imaging concerning for pneumonia. Abdominal imaging concerning for bladder wall thickening and UTI. Urine grossly abnormal. She is on broad-spectrum antibiotics and medicine consulted for severe sepsis/septic shock. Initially responded to fluid bolus, but blood pressure dropped necessitating initiation of norepinephrine. On evaluation, daughter at bedside. States she wants to attempt to treat the infections but does not want to get aggressive with resuscitation if things worsen. Patient had some response to questioning but is oriented only to self. Ill-appearing. Significant wet cough. Daughter states that patient does choke occasionally when she eats. Hospital Course Hospital Course Hospital Course: Mary Bae is a 79-year-old female who presented from nursing facility with concern for fever and confusion. Found to be in septic shock. Suspect pneumonia and UTI. Discussed case with ER physician, request admission for further management of sepsis. I agreed to admit to the ICU. Continuing broad-spectrum antibiotics for healthcare acquired infections, norepinephrine for hypotension. High risk for decompensation. Discussed goals of care with daughter, wants to attempt to treat infections but also wants to keep her mother comfortable. Patient is DNR/DNI. Patient able to wean off norepinephrine overnight. Showing some improvement in hemodynamic stability. Awaiting cultures. Continues to require inpatient management. Problems addressed as follows: Septic shock Aspiration versus healthcare acquired pneumonia UTI associated with chronic indwelling catheter - Patient met criteria for septic shock with hypotension nonresponsive to fluids necessitating vasopressors. Initial white count of 19.8, fever to 101.1. ? Gradually clinically improved with broad-spectrum antibiotics including vancomycin, meropenem, Levophed, and fluid resuscitation. ? Urine culture grew Proteus mirabilis sensitive to cefdinir. ? Vital signs stable. Will discharge with cefdinir for 9 more days pending blood cultures. ? Discharged back to [facility]. REED: REED improved with fluid resuscitation. Electrolytes stable. Dementia: Polypharmacy Depression - Continue donepezil 10 mg nightly, continue Prozac 40 mg daily, continue memantine 28 mg daily. Will decrease Ativan to 0.5 mg twice daily as needed to decrease risk for sedation but decrease risk for withdrawal as well. - Decrease gabapentin to 300 mg twice daily. - Continue Risperdal at decreased dose of 0.25 mg twice daily Patient is a long-term care resident. More or less bedbound. Generally interactive verbally but limited functionality with mobility. Exam Data for Last 24 hours Vital signs and Labs for Last 24 Hours: Temp Pulse Resp BP Pulse Ox O2 Del Method O2 Flow Rate 98.2 F 64 17 119/81 93 L Nasal Cannula 2 09/28/24 11:45 09/28/24 11:45 09/28/24 11:45 09/28/24 11:45 09/28/24 11:45 09/28/24 11:45 09/28/24 06:55 Laboratory Results - last 24 hr 09/28/24 07:06: WBC 17.9 H, RBC 2.96 L, Hgb 8.5 L, Hct 27.5 L, MCV 92.9, MCH 28.7, MCHC 30.9 L, RDW 15.1, Plt Count 240, MPV 10.6 H, Neut % (Auto) 77.4, Lymph % (Auto) 11.5, [place] % (Auto) 7.0, Eos % (Auto) 2.6, Baso % (Auto) 0.3, Neut # (Auto) 13.9 H, Lymph # (Auto) 2.1, [place] # (Auto) 1.3 H, Eos # (Auto) 0.5 H, Baso # (Auto) 0.1, Total Counted 100, Neutrophils % (Manual) 81 H, Lymphocytes % (Manual) 15, Monocytes % (Manual) 3, Eosinophils % (Manual) 1, Nucleated RBCs 1, Platelet Estimate Normal, RBC Morphology Normal, Sodium 141, Potassium 4.1, Chloride 109 H, Carbon Dioxide 27, Anion Gap 9.1, BUN 17, Creatinine 0.90, Estimated Creat Clear 57, Estimated GFR 60, Est GFR ( Amer) 73, Glucose 80, Calcium 8.9, Magnesium 1.8, Total Bilirubin 0.2, AST 29, ALT 22, Alkaline Phosphatase 134 H, Total Protein 5.8 L, Albumin 2.9 L, Globulin 2.9, Albumin/Globulin Ratio 1.0 L I & O for Last 24 hours: Intake & Output 09/25/24 09/26/24 09/27/24 09/28/24 23:59 23:59 23:59 23:59 Intake Total 3120.693 / 3120.693 554 / 754 200 / 200 Output Total 1200 / 1240 1065 / 1290 825 / 825 Balance 1920.693 / 1880.693 -511 / -536 -625 / -625 Weight 84.056 kg 80.83 kg 79.65 kg Microbiology Reports for the Last 24 Hours: Microbiology 09/26/24 08:42 Urine,Catheterized Urine Culture - Final Proteus mirabilis Constitutional Constitutional: no acute distress *Routine HEENT Exam Head: Present normocephalic Eye: Present EOMI and PERRL ENT: Present mucous membranes moist *Routine Neck Exam Neck: Present supple; Absent lymphadenopathy *Routine Respiratory Exam Respiratory: Present CTA bilaterally *Routine Cardiovascular Exam Cardiovascular: Present RRR *Routine Abdominal Exam Abdominal: Present soft and normoactive bowel sounds; Absent tenderness *Routine Extremities Exam Extremities: Absent cyanosis, clubbing or edema *Routine Skin Exam Skin: Present warm; Absent rash *Routine Neurological Exam Neurological: Present alert Results Data Completed and Pending Labs on day of discharge: Labs from last 24 hours 09/28/24 07:06 WBC 17.9 H RBC 2.96 L Hgb 8.5 L Hct 27.5 L MCV 92.9 MCH 28.7 MCHC 30.9 L RDW 15.1 Plt Count 240 MPV 10.6 H Neut % (Auto) 77.4 Lymph % (Auto) 11.5 [place] % (Auto) 7.0 Eos % (Auto) 2.6 Baso % (Auto) 0.3 Neut # (Auto) 13.9 H Lymph # (Auto) 2.1 [place] # (Auto) 1.3 H Eos # (Auto) 0.5 H Baso # (Auto) 0.1 Total Counted 100 Neutrophils % (Manual) 81 H Lymphocytes % (Manual) 15 Monocytes % (Manual) 3 Eosinophils % (Manual) 1 Nucleated RBCs 1 Platelet Estimate Normal RBC Morphology Normal Sodium 141 Potassium 4.1 Chloride 109 H Carbon Dioxide 27 Anion Gap 9.1 BUN 17 Creatinine 0.90 Estimated Creat Clear 57 Estimated GFR 60 Est GFR ( Amer) 73 Glucose 80 Calcium 8.9 Magnesium 1.8 Total Bilirubin 0.2 AST 29 ALT 22 Alkaline Phosphatase 134 H Total Protein 5.8 L Albumin 2.9 L Globulin 2.9 Albumin/Globulin Ratio 1.0 L DS: Diagnosis Discharge Diagnosis (1) Septic shock: Status: Acute Code(s): A41.9 - Sepsis, unspecified organism; R65.21 - Severe sepsis with septic shock (2) Sepsis due to pneumonia: Status: Acute Code(s): J18.9 - Pneumonia, unspecified organism; A41.9 - Sepsis, unspecified organism (3) Urinary tract infection: Status: Acute Code(s): N39.0 - Urinary tract infection, site not specified Qualifiers: Hematuria presence: without hematuria Urinary tract infection type: acute cystitis Qualified Code(s): N30.00 - Acute cystitis without hematuria (4) Altered mental status: Status: Acute Code(s): R41.82 - Altered mental status, unspecified (5) Acute hypoxemic respiratory failure: Status: Acute Code(s): J96.01 - Acute respiratory failure with hypoxia (6) Obesity (BMI 30.0-34.9): Status: Resolved Code(s): E66.811 - Obesity, class 1 (7) Weakness: Status: Resolved Code(s): R53.1 - Weakness (8) AAA (abdominal aortic aneurysm) without rupture: Status: Chronic Code(s): I71.40 - Abdominal aortic aneurysm, without rupture, unspecified Qualifiers: Abdominal aorta location: unspecified Qualified Code(s): I71.40 - Abdominal aortic aneurysm, without rupture, unspecified (9) CAD (coronary artery disease): Status: Chronic Code(s): I25.10 - Atherosclerotic heart disease of [place] coronary artery without angina pectoris Qualifiers: Associated angina: without angina Coronary Disease-Associated Artery/Lesion type: [place] artery [place] vs. transplanted heart: [place] heart Qualified Code(s): I25.10 - Atherosclerotic heart disease of [place] coronary artery without angina pectoris (10) Anxiety disorder, unspecified: Status: Acute Code(s): F41.9 - Anxiety disorder, unspecified (11) Bladder dysfunction: Status: Acute Code(s): N31.9 - Neuromuscular dysfunction of bladder, unspecified (12) Indwelling Mccoy catheter present: Status: Acute Code(s): Z97.8 - Presence of other specified devices (13) RSV (respiratory syncytial virus pneumonia): Status: Acute Code(s): J12.1 - Respiratory syncytial virus pneumonia Meds Home Medications and Allergies Home Medications ?Medication ?Instructions ?Recorded ?Confirmed ?Type donepezil 10 mg tablet 10 mg PO HS 01/02/20 09/26/24 History atorvastatin 40 mg tablet 40 mg PO HS 01/24/20 09/26/24 History albuterol sulfate 90 mcg/actuation 2 puff inhalation Q6HP PRN 01/29/22 09/26/24 History aerosol inhaler (Ventolin HFA) Shortness Of Breath fluoxetine 40 mg capsule 40 mg PO DAILY 07/23/23 09/26/24 History memantine 28 mg capsule 28 mg PO DAILY 07/23/23 09/26/24 History sprinkle,extended release 24hr docusate sodium 100 mg capsule 100 mg PO BID 07/24/23 09/26/24 History cranberry extract 425 mg capsule 850 mg PO DAILY 08/06/23 09/26/24 History multivitamin 1 tab PO DAILY 08/06/23 09/26/24 History aspirin 81 mg chewable tablet 81 mg PO DAILY #90 tabs 05/05/24 09/26/24 Rx (Aspirin Childrens) conjugated estrogens 0.625 mg/gram 1 applic vaginal .3 TIMES PER WEEK 07/30/24 09/26/24 History vaginal cream acetaminophen 500 mg tablet 500 mg PO Q4HP PRN Fever Or Pain 08/30/24 09/26/24 History acetaminophen 500 mg tablet 500 mg PO TID 08/30/24 09/26/24 History aluminum hydrox-magnesium carb 95 30 ml PO Q4HP PRN GI upset 08/30/24 09/26/24 History mg-358 mg/15 mL oral suspension (Acid Gone Antacid) dextromethorphan-guaifenesin 5 10 ml PO Q6HP PRN Cough 08/30/24 09/26/24 History mg-100 mg/5 mL oral liquid (Robitussin Cough-Chest Congestion DM) ondansetron HCl 4 mg tablet 4 mg PO Q6HP PRN Nausea 08/30/24 09/26/24 History cefdinir 300 mg capsule 300 mg PO BID 9 days #18 caps 09/28/24 Rx gabapentin 600 mg tablet 300 mg (1/2 x 600 mg) PO BID #60 09/28/24 09/26/24 Rx tabs lorazepam 1 mg tablet 0.5 mg (1/2 x 1 mg) PO BID #60 tabs 09/28/24 09/26/24 Rx risperidone 0.5 mg tablet 0.25 mg (1/2 x 0.5 mg) PO BID 30 09/28/24 09/26/24 Rx days #0 tabs New Prescriptions to Start Prescriptions: Red Urena Allergies Allergy/AdvReac Type Severity Reaction Status Date / Time diphtheria toxoid,fluid Allergy Unknown Unknown Verified 09/26/24 15:20 (DIPHTHERIA TOXOID,FLUID) allergy reaction Penicillins (PENICILLINS) Allergy Unknown Unknown Verified 09/26/24 15:20 allergy reaction Sulfa (Sulfonamide Allergy Unknown Unknown Verified 09/26/24 15:20 Antibiotics) (SULFA allergy (SULFONAMIDE ANTIBIOTICS)) reaction tetanus and diphtheria Allergy Unknown Unknown Verified 09/26/24 15:20 toxoids (TETANUS & allergy DIPHTHERIA TOXOIDS) reaction codeine Allergy Unknown Verified 09/26/24 15:20 allergy reaction morphine Allergy Unknown Verified 09/26/24 15:20 allergy reaction Discharge Plan Disposition Patient Disposition: [facility] Condition: Fair Discharge Order Discharge Orders: Discharge Order (Routine); Ordered 09/28/24 Ordered By: Red Triana Follow up Plan Prescriptions/Medication Reconciliation: New cefdinir 300 mg capsule 300 mg PO BID 9 Days Qty: 18 0RF Continued donepezil 10 mg tablet 10 mg PO HS albuterol sulfate [Ventolin HFA] 90 mcg/actuation HFA aerosol inhaler 2 puff IH Q6HP PRN (Reason: Shortness Of Breath) conjugated estrogens 0.625 mg/gram cream 1 applic vaginal .3 TIMES PER WEEK Rx Instructions: 3x/week Acid Gone Antacid 95-358 mg/15 mL suspension 30 ml PO Q4HP PRN (Reason: GI upset) ondansetron HCl 4 mg tablet 4 mg PO Q6HP PRN (Reason: Nausea) acetaminophen 500 mg tablet 500 mg PO TID dextromethorphan-guaifenesin [Robitussin Cough-Chest [place] DM] 5-100 mg/5 mL liquid 10 ml PO Q6HP PRN (Reason: Cough) cranberry extract 425 mg capsule 850 mg PO DAILY Rx Instructions: administer with a meal multivitamin Tablet 1 tab PO DAILY aspirin [Aspirin Childrens] 81 mg tablet,chewable 81 mg PO DAILY Qty: 90 3RF acetaminophen 500 mg tablet 500 mg PO Q4HP PRN (Reason: Fever Or Pain) atorvastatin 40 MG tablet 40 mg PO HS fluoxetine 40 mg capsule 40 mg PO DAILY memantine 28 mg capsule,sprinkle,ER 24hr 28 mg PO DAILY docusate sodium 100 mg Capsule 100 mg PO BID Changed gabapentin 600 mg tablet 300 mg PO BID Qty: 60 2RF lorazepam 1 mg tablet 0.5 mg PO BID Qty: 60 5RF risperidone 0.5 mg tablet 0.25 mg PO BID 30 Days Qty: 0 0RF Problem Reconciliation Problems Reviewed?: Yes Patient Discharge Instructions Patient Instructions: DI for Pneumonia -- Adult, DI for Respiratory Syncytial Virus -- Adults, DI for Urinary Tract Infection (UTI), DI for Sepsis -- Adult, DI for Respiratory Failure Print Language: Amharic Providers Primary Care Provider: Provider,Referral Admit Provider: Willian Garcia Attending Provider: Willian Garcia
== END 2024-09-28 13:33 | DRG 193 ==
LOC: ER 11:27 → ICU 11:58 → 2ND 09-27 17:52
PROVIDERS: Admitting Provider Internal Medicine Adolescent Medicine; Emergency Provider Emergency Medicine; Visit Provider Internal Medicine Adolescent Medicine
DX: J12.1 Respiratory syncytial virus pneumonia (principal); A41.89 Other specified sepsis; R65.21 Severe sepsis with septic shock; J96.01 Acute respiratory failure with hypoxia; T83.511A Infection and inflammatory reaction due to indwelling urethral catheter, initial encounter; N39.0 Urinary tract infection, site not specified; N17.9 Acute kidney failure, unspecified; F05 Delirium due to known physiological condition; R31.0 Gross hematuria; B96.4 Proteus (mirabilis) (morganii) as the cause of diseases classified elsewhere; N31.9 Neuromuscular dysfunction of bladder, unspecified; E66.9 Obesity, unspecified; F32.A Depression, unspecified; I25.10 Atherosclerotic heart disease of native coronary artery without angina pectoris; F03.C0 Unspecified dementia, severe, without behavioral disturbance, psychotic disturbance, mood disturbance, and anxiety; I73.9 Peripheral vascular disease, unspecified; E78.5 Hyperlipidemia, unspecified; I71.40 Abdominal aortic aneurysm, without rupture, unspecified; Z79.51 Long term (current) use of inhaled steroids; Z79.02 Long term (current) use of antithrombotics/antiplatelets; Z87.891 Personal history of nicotine dependence; Z79.82 Long term (current) use of aspirin; Z79.899 Other long term (current) drug therapy; Z68.29 Body mass index [BMI] 29.0-29.9, adult; Z91.81 History of falling; Z74.01 Bed confinement status
CPT/HCPCS: 36415; 51702; 70450; 71045; 71275; 74177; 80053; 81001; 82803; 83690; 83735; 83880; 84145; 84436; 84443; 84484; 85007; 85025; 85378; 86140; 87040; 87086; 87088; 87186; 87633; 87636; 92610; 93005; 94640; 94761; 99291; J0696; J1650; J2185; J2919; J3372; J3473; J7030; J7120; J7620; Q9967

== ENCOUNTER 2024-11-23 19:33 | Outpatient (CLI) | payer MEDICARE, MEDICAID, SELFPAY ==
[2024-11-23 19:49] LABS: Microscopic, Urine URINE MICROSCOPIC (MICROSCOPIC)
[2024-11-23 19:56] LABS: Basophils # 0.1 K/mm3 (0-0.2); Basophils % 0.7 % (0.1-2.0); Eosinophils # 0.5 K/mm3 (0.0-0.4); Hematocrit 34.4 % (37.0-47.0); Hemoglobin 10.5 g/dL (12.2-16.2); Lymphocytes # 2.6 K/mm3 (0.7-4.5); Lymphocytes % 26.6 % (10-50); Mean Corpuscular HGB Conc 30.5 g/dL (31.8-35.4); Mean Platelet Volume 10.7 fl (7.4-10.4); Monocytes % 10.1 % (1.7-9.3); Neutrophils # 5.6 K/mm3 (1.8-7.8); Neutrophils % 57.1 % (37.0-80.0); Platelet Count 234 K/mm3 (142-424); Red Blood Count 3.62 M/mm3 (4.20-5.40); Red Cell Distribution Width 17.1 % (11.5-17.5); White Blood Count 9.8 K/mm3 (4.8-10.8)
[2024-11-23 20:01] LABS: Bilirubin,Urine Negative (Negative); Blood, Urine TRACE-I (Negative); Color,Urine YELLOW (Yellow); Glucose,Urine (UA) Negative (Negative); Ketones,Urine TRACE (Negative); Leukocyte Esterase,Urine MODERATE (Negative); Nitrate,Urine Negative (Negative); PH,Urine 8.5 (5.0-8.5); Protein,Urine 100 (Negative); Specific Gravity, Urine 1.015 (1.005-1.030); Urobilinogen,Urine 0.2 EU/dl (0.2)
[2024-11-23 20:19] LABS: Appearance,Urine Slightly Cloudy (Clear)
[2024-11-23 20:58] LABS: Bacteria,Urine 4+ /lpf; Squamous Epithelial Cell,Urine 20-50 #/hpf (0-5); WBC,Urine 50-100 #/hpf (0-3)
[2024-11-23 20:59] LABS: Uric Acid Crystals,Urine 2+ /lpf
== END 2024-11-23 23:59 | disposition home or self-care (01) ==
LOC: LAB.DROPOF 19:34
PROVIDERS: PCP Family Medicine; Visit Provider Family Medicine
DX: F31.60 Bipolar disorder, current episode mixed, unspecified (principal); R06.02 Shortness of breath
CPT/HCPCS: 81001; 85025; 87086; 87088; 87186

== ENCOUNTER 2025-03-20 02:10 | Emergency (ER) | payer MEDICARE, MEDICAID, SELFPAY ==
--- NOTE | 2025-03-20 02:02 | XR_ITS ---
PROCEDURE INFORMATION: Exam: XR Chest Exam date and time: 03/20/2025 2:30 AM Age: 79 years old Clinical indication: Injury or trauma; Fall; Blunt trauma (contusions or hematomas) TECHNIQUE: Imaging protocol: Radiologic exam of the chest. Views: 1 view. COMPARISON: CT ANGIO CHEST PE PROTOCOL 09/26/2024 9:04 AM FINDINGS: Lungs: Chronic interstitial changes. No definite acute process identified. Pleural spaces: Unremarkable. No pleural effusion. No pneumothorax. Heart/Mediastinum: Cardiomegaly. Bones/joints: Unremarkable. IMPRESSION: Cardiomegaly. Chronic interstitial changes. No definite acute process identified.
--- NOTE | 2025-03-20 02:02 | CT_ITS ---
PROCEDURE INFORMATION: Exam: CT Cervical Spine Without Contrast Exam date and time: 03/20/2025 2:27 AM Age: 79 years old Clinical indication: Injury or trauma; Fall; Blunt trauma TECHNIQUE: Imaging protocol: Computed tomography of the cervical spine without contrast. Radiation optimization: All CT scans at this facility use at least one of these dose optimization techniques: automated exposure control; mA and/or kV adjustment per patient size (includes targeted exams where dose is matched to clinical indication); or iterative reconstruction. COMPARISON: CT CERVICAL SPINE WO CON 05/09/2023 1:36 AM FINDINGS: Bones: No acute fracture. Stable alignment. Chronic C5 on C6 mild anterolisthesis. Multilevel degenerative disc and joint space changes. Lungs: Unremarkable. Soft tissues: Unremarkable. IMPRESSION: No acute findings identified.
--- NOTE | 2025-03-20 02:02 | XR_ITS ---
PROCEDURE INFORMATION: Exam: XR Pelvis Exam date and time: 03/20/2025 2:30 AM Age: 79 years old Clinical indication: Injury or trauma; Fall; Blunt trauma (contusions or hematomas); Does not apply; Hip TECHNIQUE: Imaging protocol: Radiologic exam of the pelvis. Views: 1 or 2 view. COMPARISON: CT ABDOMEN PELVIS W CON 09/26/2024 9:04 AM FINDINGS: Bones/joints: Bilateral hip arthroplasty. No definite fracture or malalignment is noted however the patient is very osteopenic, increasing chances for occult fracture. Soft tissues: Unremarkable. IMPRESSION: No definite fracture or malalignment is noted, however the patient is very osteopenic, increasing chances for occult fracture. Consider CT for further evaluation as clinically indicated.
--- NOTE | 2025-03-20 02:02 | CT_ITS ---
PROCEDURE INFORMATION: Exam: CT Head Without Contrast Exam date and time: 03/20/2025 2:25 AM Age: 79 years old Clinical indication: Injury or trauma; Fall; Blunt trauma (contusions or hematomas) TECHNIQUE: Imaging protocol: Computed tomography of the head without contrast. Radiation optimization: All CT scans at this facility use at least one of these dose optimization techniques: automated exposure control; mA and/or kV adjustment per patient size (includes targeted exams where dose is matched to clinical indication); or iterative reconstruction. COMPARISON: CT HEAD/BRAIN WO CON 09/26/2024 9:01 AM FINDINGS: Brain: No hemorrhage. Underlying periventricular white matter changes and parenchymal cortical volume loss. No mass effect. Cerebral ventricles: No ventriculomegaly. Paranasal sinuses: Visualized sinuses are unremarkable. No fluid levels. Mastoid air cells: Visualized mastoid air cells are well aerated. Bones: Unremarkable. No acute fracture. Soft tissues: Unremarkable. IMPRESSION: No acute intracranial abnormality.
--- NOTE | 2025-03-20 02:03 | HMH.EDGENADL ---
Discharge Plan Disposition Patient Disposition: Home, Self-Care Prescriptions Prescriptions: No Action donepezil 10 mg tablet 10 mg PO HS albuterol sulfate [Ventolin HFA] 90 mcg/actuation HFA aerosol inhaler 2 puff IH Q6HP PRN (Reason: Shortness Of Breath) methenamine hippurate 1 gram tablet 1 g PO BID ferrous sulfate 325 mg (65 mg iron) tablet 325 mg PO DAILY ascorbic acid (vitamin C) [Vitamin C] 500 mg tablet 500 mg PO DAILY conjugated estrogens 0.625 mg/gram cream 1 applic vaginal .3 TIMES PER WEEK Rx Instructions: 3x/week Acid Gone Antacid 95-358 mg/15 mL suspension 30 ml PO Q4HP PRN (Reason: GI upset) ondansetron HCl 4 mg tablet 4 mg PO Q6HP PRN (Reason: Nausea) dextromethorphan-guaifenesin [Robitussin Cough-Chest Trent DM] 5-100 mg/5 mL liquid 10 ml PO Q6HP PRN (Reason: Cough) acetaminophen 500 mg tablet 500 mg PO QID cranberry extract 425 mg capsule 850 mg PO DAILY Rx Instructions: administer with a meal multivitamin Tablet 1 tab PO DAILY aspirin [Aspirin Childrens] 81 mg tablet,chewable 81 mg PO DAILY Qty: 90 3RF gabapentin 300 mg capsule 300 mg PO BID Qty: 60 5RF lorazepam 0.5 mg tablet 0.5 mg PO QHS Qty: 30 2RF fluoxetine 10 mg capsule 50 mg PO DAILY Qty: 30 2RF atorvastatin 40 MG tablet 40 mg PO HS risperidone 0.5 mg tablet 0.25 mg PO BID 30 Days Qty: 0 0RF memantine 28 mg capsule,sprinkle,ER 24hr 28 mg PO DAILY docusate sodium 100 mg Capsule 100 mg PO BID Referrals Follow up/Referrals: Provider,Referral, MD [Primary Care Provider, Medical] - See instructions Activity Restrictions/Add. Instructions Additional Instructions/Restrictions: No significant traumatic findings on CT scans or x-rays. Clinical Impressions Clinical Impression: Fall Dementia Qualifiers: Dementia severity: severe Print Language Print Language: Italian Discharge ED Provider: Jesus Lynch General Adult HPI General Chief complaint: Fall Stated complaint: fall Time Seen by Provider: 03/20/25 02:13 History of Present Illness HPI narrative: 79-year-old female with history of significant dementia, resident at a nursing facility presents after being found on the floor. She is not ambulatory at baseline. She had not been down for long according to nursing facility. Patient is awake and interactive. She reports pain all over but is unable to specify any specific spot that hurts. Related Data Home Medications ?Medication ?Instructions ?Recorded ?Confirmed donepezil 10 mg tablet 10 mg PO HS 01/02/20 02/15/25 atorvastatin 40 mg tablet 40 mg PO HS 01/24/20 02/15/25 albuterol sulfate 90 mcg/actuation 2 puff inhalation Q6HP PRN 01/29/22 02/15/25 aerosol inhaler (Ventolin HFA) Shortness Of Breath memantine 28 mg capsule 28 mg PO DAILY 07/23/23 02/15/25 sprinkle,extended release 24hr docusate sodium 100 mg capsule 100 mg PO BID 07/24/23 02/15/25 cranberry extract 425 mg capsule 850 mg PO DAILY 08/06/23 02/15/25 multivitamin 1 tab PO DAILY 08/06/23 02/15/25 conjugated estrogens 0.625 mg/gram 1 applic vaginal .3 TIMES PER WEEK 07/30/24 02/15/25 vaginal cream aluminum hydrox-magnesium carb 95 30 ml PO Q4HP PRN GI upset 08/30/24 02/15/25 mg-358 mg/15 mL oral suspension (Acid Gone Antacid) dextromethorphan-guaifenesin 5 10 ml PO Q6HP PRN Cough 08/30/24 02/15/25 mg-100 mg/5 mL oral liquid (Robitussin Cough-Chest Congestion DM) ondansetron HCl 4 mg tablet 4 mg PO Q6HP PRN Nausea 08/30/24 02/15/25 ascorbic acid (vitamin C) 500 mg 500 mg PO DAILY 10/19/24 02/15/25 tablet (Vitamin C) methenamine hippurate 1 gram tablet 1 g PO BID 11/02/24 02/15/25 acetaminophen 500 mg tablet 500 mg PO QID 01/10/25 02/15/25 ferrous sulfate 325 mg (65 mg 325 mg PO DAILY 01/10/25 02/15/25 iron) tablet Previous Rx's ?Medication ?Instructions ?Recorded aspirin 81 mg chewable tablet 81 mg PO DAILY #90 tabs 05/05/24 (Aspirin Childrens) risperidone 0.5 mg tablet 0.25 mg (1/2 x 0.5 mg) PO BID 30 09/28/24 days #0 tabs gabapentin 300 mg capsule 300 mg PO BID #60 caps 11/29/24 lorazepam 0.5 mg tablet 0.5 mg PO QHS #30 tabs 02/14/25 fluoxetine 10 mg capsule 50 mg (5 x 10 mg) PO DAILY #30 caps 02/15/25 Allergies Allergy/AdvReac Type Severity Reaction Status Date / Time diphtheria toxoid,fluid Allergy Unknown Unknown Verified 03/20/25 01:56 (DIPHTHERIA TOXOID,FLUID) allergy reaction Penicillins (PENICILLINS) Allergy Unknown Unknown Verified 03/20/25 01:56 allergy reaction Sulfa (Sulfonamide Allergy Unknown Unknown Verified 03/20/25 01:56 Antibiotics) (SULFA allergy (SULFONAMIDE ANTIBIOTICS)) reaction tetanus and diphtheria Allergy Unknown Unknown Verified 03/20/25 01:56 toxoids (TETANUS & allergy DIPHTHERIA TOXOIDS) reaction codeine Allergy Unknown Verified 03/20/25 01:56 allergy reaction morphine Allergy Unknown Verified 03/20/25 01:56 allergy reaction PFSH PFS Disclaimer: The information contained in this section may have been updated after the patient was seen, as this information can be updated by other users. Medical History RSV (respiratory syncytial virus pneumonia) Septic shock Acute hypoxemic respiratory failure Urinary tract infection Indwelling Mccoy catheter present Bladder dysfunction Cellulitis of right lower extremity Left thyroid nodule Nstri-yj-hzpweuk kidney injury 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 Falls Fracture of tubercle of left pubis Diastolic dysfunction Ambulatory dysfunction Peripheral arterial occlusive disease Bilateral primary osteoarthritis of hip Cerebral aneurysm, nonruptured Vitamin B12 deficiency anemia, unspecified Anxiety disorder, unspecified Dementia in other diseases classified elsewhere, unspecified severity, with other behavioral disturbance Bipolar disorder, current episode mixed, unspecified Obesity (BMI 30.0-34.9) Lumbar radicular pain Adrenal mass, left AAA (abdominal aortic aneurysm) without rupture Diverticulosis Tobacco use Surgical History History of laparotomy Social History Smoking Status: Unknown if ever smoked alcohol intake: never substance use type: denies use current occupational status: disabled Travel in the last 8 weeks?: None household members: other housing: assisted living facility current occupational exposures/hazards: No caffeine: Yes Have you lived/traveled outside US in past 30 days?: No Contact w/someone who lives/traveled outside US past 30 days?: No Exposure to someone with infectious disease in past 14 days?: No Do you have a fever (greater than 100.4 F or 38 C)?: No Have you tested positive for COVID-19?: No Exposed to someone with COVID-19 in past 14 days?: No Do you have a sore throat?: No Do you have a cough?: No Do you have any weakness?: No Do you have any diarrhea?: No Are you experiencing any unusual bleeding?: No Do you have any muscle aches/pain?: No Do you have any abdominal pain?: No Are you experiencing loss of taste or smell?: No Other Medical History Have you received the Flu Vaccine for this season: No Have you received the Pneumonia Vaccine: Yes (12/05/24) ROS Obtained: Yes All systems reviewed & no additional complaints except as documented Physical Exam General General appearance: alert and in no apparent distress Head Head exam: atraumatic and normocephalic Eye Eye exam: Present normal appearance, PERRL and EOMI ENT ENT exam: Present normal oropharynx and normal external ear exam Neck Neck exam: Present normal inspection and full ROM Chest Chest inspection: Present normal inspection and symmetric chest wall rise; Absent tenderness Respiratory Respiratory exam: Present normal lung sounds bilaterally; Absent respiratory distress Cardiovascular Cardiovascular exam: Present regular rate and normal rhythm Abdominal Exam Abdominal exam: Present soft; Absent distention, tenderness or guarding Extremities Exam Extremities exam: Present normal inspection; Absent edema or joint swelling Back Exam Back exam: Present normal inspection; Absent tenderness Neurological Exam Neurological exam: Present alert and oriented X3; Absent motor sensory deficit Psychiatric Psychiatric exam: Present normal affect and normal mood Skin Skin exam: Present warm, dry and normal color Lymphatic Lymphatic Findings: no adenopathy Medical Decision Making Medical Records Medical records reviewed: Yes I reviewed the patient's medical records. Screening: Per USPSTF and CDC recommendations, given the prevalence of disease in our region, it is our hospital?s policy to screen for HIV and viral Hepatitis for all patients aged 18 and over and those with ongoing risk factors. Nico Inquiry Pt receiving controlled substance: No Nico was queried for this patient: No Vital Signs: 07/21/25 02:07 Temperature 97.9 F Temperature Source Oral Pulse Rate [Right] 55 L Respiratory Rate 16 Blood Pressure [Right Arm] 151/74 H Blood Pressure Mean [Right Arm] 99 Blood Pressure Source [Right Arm] Automatic Cuff Blood Pressure Position [Right Arm] Sitting 02 Sat by Pulse Oximetry 93 L Oxygen Delivery Method Room Air Lab Data Lab results reviewed: Yes I reviewed the patient's lab results. Orders (Tests/Meds): ORDERS Category Date Time Status CT cervical spine wo con Stat Cat Scan 03/20/25 02:[address] head/brain wo con Stat Cat Scan 03/20/25 02:02 Completed CXR --portable [XR chest portable] Stat Exams 03/20/25 02:02 Completed Pelvis XR 1-2 views [XR pelvis 1-2V] Stat Exams 03/20/25 02:02 Completed HIV Combo Stat Lab 03/20/25 02:13 Ordered Hepatitis C Ab Qual. W/ RFX Stat Lab 03/20/25 02:13 Ordered Medical Decision Narrative: 79-year-old female, custodial resident, severe dementia presents for fall after she was found on the ground. She is nonambulatory at baseline. Not a significant downtime per EMS. History was obtained via interactive discussion with patient, EMS, chart review. On arrival, patient is afebrile, hemodynamically stable, alert and interactive, not oriented, moving all extremities spontaneously. Full physical exam performed and significant for dried poop noted, Mccoy in place, no obvious traumatic injuries noted. Differential includes but is not limited to intracranial trauma intrathoracic trauma intra-abdominal trauma spine trauma extremity trauma. Workup initiated including CT head, CT C-spine, chest x-ray pelvis x-ray. On re-evaluation, patient [remains afebrile, HD stable.] Imaging independently interpreted by me and significant for no evidence of intracranial bleeding or cervical fracture, no pneumothorax or rib fracture, no pelvic fracture, stable hardware noted. See radiology read for full review of final results. Given patient history, exam and workup, patient's presentation most likely represents mechanical fall from standing in a nonambulatory patient. No sign of emergent traumatic injuries at this time. Patient discharged back to nursing facility in stable condition.. Procedures Risk/Benefits of Procedure(s) Were Explained: Yes Critical Care Critical Care Time Critical Care Time: No
[2025-03-20 02:07] VITALS: BP 151/74; PULSE 55; RESP 16; TEMP 36.6; O2SAT 93; BMI 32.1
--- OUTSIDE RECORDS SUMMARY | 2025-03-20 02:20 | XMS_ITS | Encounter Summary ---
Author Organization [facility] Address [address] [place] [address] Care Team Providers Care Lettuce Trimmer Name Role Phone Dom Pineda MD Primary Care Provider [phone] Reason for Visit * Reason Onset Date Comments Appt Changes 03/10/2025 Encounter Details Date Type Department Care Team (Late st Contact Info) Description 03/10/[address] [facility] [address] [place] [address] Rosey Chan MD [address] [place] [address] Appt Changes Social History Tobacco Use Types Packs/Day Years Used Date Smoking Tobacco: Every Day Smokeless Tobacco: Never Alcohol Use Standard Drinks/Week Comments No 0 (1 standard drink = 0.6 oz pur e alcohol) Humiliation, Afraid, Rape, and Kick questionnair e Answer Date Recorded Within the last year, have y ou been afraid of your partner or ex-partner? No 06/02/2024 Within the last year, have y ou been humiliated or emotionally abused in other ways by your partner or ex-partner? No Within the last year, have y ou been kicked, hit, slapped, or otherwise physically hurt by your partner or ex-partner? No 06/02/2024 Within the last year, have y ou been raped or forced to have any kind of sexual activity by your partner or ex-partner? No 06/02/2024 PHQ-2 Answer Date Recorded Patient Health Questionnaire-2 Score 0 07/01/2024 Hunger Vital Sign Answer Date Recorded Within the past 12 months, y ou worried that your food would run out before you got the money to buy more. Never true 06/02/20 24 Within the past 12 months, t he food you bought just didn't last and you didn't have money to get more. Never true 06/02/2024 PRAPARE - Transportation Answer Date Re corded In the past 12 months, has l ack of transportation kept you from medical appointments or from getting medications? No 10/2023 In the past 12 months, has l ack of transportation kept you from meetings, work, or from getting things needed for daily living? No 06/02/2024 Housing Stability Vital Sign Answer Emmanuel e Recorded In the last 12 months, was t here a time when you were not able to pay the mortgage or rent on time? No 06/02/2024 In the last 12 months, how many places have you lived? 1 06/02/2024 In the last 12 months, was t here a time when you did not have a steady place to sleep or slept in a care home (including now)? No 06/02/2024 Utilities Answer Date Recorded In the past 12 months has th e electric, gas, oil, or water company threatened to shut off services in your home? No 06/02/2024 Comments Unknown Sex and Gender Information Value Date Recorded Sex Assigned at Not on file Legal Sex Female 8:12 PM EDT Gender Identity Not on file Sexual Orientation Not on file documented as of this encounter Miscellaneous Notes * Telephone Encounter - Ginette Hopson - 03/10/2025 2:04 PM EDT I spoke chaya Moyer from the [place] and updated appointment information from to 05/31 at 9:20 am in the [facility] at [address] [place] [address], [id number] documented in this encounter Plan of Treatment Upcoming Encounters Date Type Department Care Team (Late st Contact Info) Description 05/31/2025 9:20 AM EDT Office Visit [place] [facility] [address] [place] [address] Rosey Chan MD [address] [place] [address] documented as of this encounter Visit Diagnoses Not on filedocumented in this encounter Additional Health Concerns Assessment Noted Time A Body Mass Index follow-up plan has been documented for the patient 07/02/2024 10:02 PM EDT documented as of this encounter Care Teams Lettuce Trimmer Relationship Specialty Start Date End Date Dom Pineda MD [address] [place] [address] PCP - General 01/11/21 documented as of this encounter
--- OUTSIDE RECORDS SUMMARY | 2025-03-20 02:20 | XMS_ITS | Clinical Summary ---
Author Organization [facility] Address [address] [place] [place] [address] Phone Care Team Providers Care Acid Pump Operator Name Role Phone Unavailable Primary Care Provider Unavailabl e Allergies Active Allergy Reactions Criticality Noted Date Comments Penicillins Hives Medium 04/19/2019 Sulfa (Sulfonamide Antibiotics) Nausea And Vomiting Medium 04/19/2019 Medications * This document contains information received from the source organization and may not represent a complete record from that organization. LORazepam (ATIVAN) 1 mg Oral TabletIndication s:TAO (generalized anxiety disorder),Panic disorder with agoraphobia Take 1 Tablet by mouth 2 times daily. 60 Tablet 3 10/14/2023 Active Active Problems No known active problems Medical History Medical History Date Comments Benign neoplasm of unspecified adrenal gland Acute posthemorrhagic anemia Bipolar disorder, current episode mixed (HCC) Abdominal aortic aneurysm without rupture COPD (chronic obstructive pulmonary disease) (HC C) Diverticulosis of small inte diane without perforation or abscess with bleeding Calculus of gallbladder without cholecystitis wi thout obstruction Impetigo, unspecified Social History Tobacco Use Types Packs/Day Years Used Date Smoking Tobacco: Never Smokeless Tobacco: Never Alcohol Use Standard Drinks/Week Comments Never 0 (1 standard drink = 0.6 oz pur e alcohol) AUDIT-C Answer Date Recorded Frequency of Alcohol Consumption Never 12/30/2019 Average Number of Drinks Not on file 020 Frequency of Binge Drinking Not on file 08/2019 Comments Unknown Sex and Gender Information Value Date Recorded Sex Assigned at Not on file Legal Sex Female 10:09 AM EDT Gender Identity Not on file Sexual Orientation Not on file Obstetrics History Plan of Treatment Health Maintenance Due Date Last Done Comments Wellness Exam Medicare 1948 Hepatitis C Screening 1963 DTaP/TDaP/Td (1 - Tdap) 1964 Zoster (1 of 2) 1995 Bone Density Screening 2010 Pneumococcal Vaccine 50+ (2 of 2 - PCV20 or PCV21) 06/30/2015 06/30/2014 RSV or 60+ (1 - 1-dose 75+ series) 2020 COVID-19 Vaccine (3 - 2023-2 5 season) 2024 11/01/2020, 10/09/2020 Influenza Vaccine (#1) 2025 9, 06/05/2017, 06/24/2016 Hepatitis B Vaccine Aged Out No longe r eligible based on patient's age to complete this topic Meningococcal B Vaccine Aged Out No l onger eligible based on patient's age to complete this topic Insurance [place]
--- OUTSIDE RECORDS SUMMARY | 2025-03-20 02:20 | XMS_ITS | Clinical Summary ---
Author Organization [facility] Address [address] [place] [address] Care Team Providers Care Machine Shop Helper Name Role Phone Dom Pineda MD Primary Care Provider [phone] Allergies Active Allergy Reactions Criticality Noted Date Comments Amoxicillin Unknown - Patient st ates they do not know rxn details Low 01/06/2023 Codeine Other - please docum ent in the comment field,Nausea,Unknown - Patient states they do not know rxn details Low 10/13/2013 Latex Unknown - Patient st ates they do not know rxn details Low 06/15/2019 Morphine Unknown - Patient st ates they do not know rxn details Low 05/27/2019 Penicillins Unknown - Patient st ates they do not know rxn details Low 03/11/2011 Povidone Iodine Other - please docum ent in the comment field Low 07/14/2013 Skin reaction to vaginal prep Sulfacetamide Unknown - Patient st ates they do not know rxn details Low 03/11/2011 Tetanus Toxoid Unknown - Patient st ates they do not know rxn details Low 03/11/2011 Medications acetaminophen (Tylenol) 500 MG tablet Take 2 tablets (1,000 mg) by mouth every 8 (eight) hours if needed for pain or headaches. Active ASPIRIN 81 MG chewable tablet Chew 1 tablet (81 mg) 1 (one) time each day. Active atorvastatin (Lipitor) 40 MG tablet Take 1 tablet (40 mg) by mouth 1 (one) time each day. Active Cranberry 425 MG capsule Take 2 capsules by mouth 1 (one) time each day. Active docusate sodium (Colace) 100 MG capsule Take 1 capsule (100 mg) by mouth 2 (two) times a day. Active donepezil (Aricept) 10 MG tablet Take 1 tablet (10 mg) by mouth 1 (one) time each day. Active FLUoxetine (PROzac) 40 MG capsule Take 1 capsule (40 mg) by mouth 1 (one) time each day. Active gabapentin (Neurontin) 600 MG tablet Take 1 tablet (600 mg) by mouth 2 (two) times a day. Active LORazepam (Ativan) 1 MG tablet Take 1 tablet (1 mg) by mouth 2 (two) times a day. Active Memantine HCl ER 28 MG capsule sustained-relea se 24 hr Take 1 capsule by mouth 1 (one) time each day. May be opened and sprinkled in applesauce Active risperiDONE (RisperDAL) 0.5 MG tablet Take 1 tablet (0.5 mg) by mouth 2 (two) times a day. Active Multiple Vitamin (Tab-A-Buck) tablet Take 1 tablet by mouth 1 (one) time each day. Active aluminum hydroxide-magne sium carbonate (Gaviscon) 95-358 MG/15ML suspension oral suspension Take 30 mL by mouth every 4 (four) hours if needed for indigestion or heartburn. Active miconazole (Micotin) 2 % powder Apply 1 Application topically 2 (two) times a day. Red areas under skin folds Active loperamide (Imodium A-D) 2 MG tablet Take 1 tablet (2 mg) by mouth 4 (four) times a day if needed for diarrhea. Active ondansetron (Zofran) 4 MG tablet Take 1 tablet (4 mg) by mouth every 6 (six) hours if needed for nausea or vomiting. Active Dextromethorpha n-guaiFENesin (Robafen DM Clear) 10-100 MG/5ML liquid Take 10 mL by mouth every 6 (six) hours if needed. Active albuterol 108 (90 Base) MCG/ACT inhaler Inhale 2 puffs every 6 (six) hours if needed for wheezing. Active guaiFENesin-cod eine (Robitussin-AC) 100-10 MG/5ML syrup 0 Active estradiol (Estrace) 0.1 MG/GM vaginal cream Insert 1 gram into the vagina 3x/week 30 g 3 4 Active cefdinir (Omnicef) 300 MG capsule Take 1 capsule (300 mg) by mouth 2 (two) times a day. Active Ascorbic Acid (vitamin C) 250 MG tablet Take 2 tablets (500 mg) by mouth 2 (two) times a day. Active methenamine hippurate (Hiprex) 1 g tabletIndicatio ns:Recurrent UTI Take 1 tablet (1 g) by mouth 2 (two) times a day. 60 tablet 11 5 10/11/19 26 Active Active Problems Problem Noted Date Diagnosed Date Typical angina 07/02/2024 Obesity (BMI 30.0-34.9) 07/02/2024 Lumbar radicular pain 07/02/2024 Impetigo 07/02/2024 Fracture of distal end of humerus 07/02/2024 Diverticulosis 07/02/2024 Diverticulitis, jejunum 07/02/2024 Discoloration of skin of lower leg 07/02/2024 Diastolic dysfunction 07/02/2024 Claudication 07/02/2024 Cholelithiasis 07/02/2024 Chest pain 07/02/2024 Abdominal pain 07/02/2024 Aortic insufficiency 07/02/2024 Abnormal result of cardiovascular function study 07/02/2024 Indwelling catheter present on admission 024 Post-menopausal atrophic vaginitis 07/02/2024 Retention, urine 07/02/2024 Diverticulum of bladder 06/07/2024 Elevated white blood cell count, unspecified 02/2024 Fecal impaction 06/05/2024 Vomiting, unspecified 06/05/2024 Sinus bradycardia 06/03/2024 Hematuria 06/02/2024 Overview (06/03/2024): 05/30: to OSH with hematuria, bladder wall thickening seen on imaging, CBI and Vanc/Meropenem started 06/02: transfer to , CBI continued Per chart review: longstanding hx of bladder anti-incontinence surgeries in the 1970's and 's who subsequently had continued urinary incontinence as well as recurrent urinary tract infections, bladder symptoms and also gross hematuria. She had cysto/biopsies with Dr. Chan in 2013. Pathology showed squamous metaplasia and chronic inflammation. Continue Vanc/Cefe CBI management per primary H/H stable Rest of care per primary team Bradycardia 06/02/2024 Overview (06/03/2024): History of sinus bradycardia per chart review Bradycardic to 40s on with hypotension, hypothermia on 06/02; improved with fluid bolus and bear hugger Currently SB in 50s, normotensive 06/03 EKG showed no heart block Diverticulitis 06/02/2024 Overview (06/02/2024): Complicates care AAA (abdominal aortic aneurysm) 06/02/2024 Overview (06/02/2024): Per chart review No documented history of surgical intervention Goal normotension Complicates care Peripheral vascular disease 06/02/2024 Overview (06/02/2024): Continue home medications as appropriate Complicates care CAD (coronary artery disease) 06/02/2024 Overview (06/02/2024): S/p stent placement Continue home medications as appropriate Hyperlipidemia 06/02/2024 Overview (06/02/2024): Continue statin Adrenal mass 06/02/2024 Overview (06/03/2024): Per chart review Cortisol WNL Dementia 06/02/2024 Overview (06/02/2024): Continue home medications as appopriate Complicates care Bipolar disorder 06/02/2024 Overview (06/02/2024): Continue home medications Anemia 06/02/2024 Overview (06/03/2024): Lab Results Component Value Date HGB 8.5 (L) 06/03/2024 , Lab Results Component Value Date HCT 27.9 (L) 06/03/2024 Stable Will continue to monitor Transfuse as appropriate for Hgb>8 Thrombocytopenia 06/02/2024 Overview (06/03/2024): Plt 147 on admission Now 132 Monitor and trend Electrolyte abnormality 06/02/2024 Overview (06/02/2024): Trend and replace per ICU sliding scale protocol UTI (urinary tract infection) 06/02/2024 Overview (06/02/2024): 06/02: UA +nitrites Initially started on ceftriaxone Broadened to Vanc/Cefe by primary in setting of hypotension Urine culture pending per primary Hypotension 06/02/2024 Overview (06/04/2024): Resolved 06/02: CCM consulted for hypotension with MAPs in 40s, resolved with crystalloid bolus Rivas cultures NGTD De-escalate abx as appropriate Respiratory insufficiency 06/02/2024 Overview (06/02/2024): Continue supplemental O2 for SpO2 goal 90% Wean as tolerated detention resident 06/02/2024 Gross hematuria 05/30/2024 Abnormal uterine and vaginal bleeding, unspecifi ed 05/30/2024 Tinea unguium 04/07/2024 Cervicalgia 01/25/2024 Fall 01/25/2024 Altered mental status, unspecified 01/25/2024 Edema, unspecified 01/20/2024 Essential (primary) hypertension 01/20/2024 Difficulty in walking, not elsewhere classified 01/05/2024 Presence of intraocular lens 10/28/2023 Arcus senilis, bilateral 10/28/2023 Nontoxic single thyroid nodule 10/14/2023 Disorientation, unspecified 09/30/2023 Dorsalgia, unspecified 09/29/2023 Weakness 07/23/2023 Fatigue 07/23/2023 Adult failure to thrive 07/10/2023 Leg pain 01/31/2020 Chronic low back pain 01/31/2020 Cerebrovascular disease 05/27/2019 Major neurocognitive disorder 05/27/2019 Neck pain, musculoskeletal 04/13/2019 Confusion and disorientation 04/13/2019 Memory loss 12/29/2017 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 Imbalance 07/21/2017 Hoarseness, chronic 07/21/2017 Bilateral sensorineural hearing loss 07/21/2017 Headache 06/25/2017 H/O total hip arthroplasty 09/11/2014 Spinal stenosis, lumbar region with neurogenic c laudication 02/16/2014 Osteoarthritis of both hips 02/16/2014 Degeneration of intervertebral disc of lumbar re gion 01/12/2014 Tinnitus 12/15/2013 Intracranial aneurysm 08/03/2013 Urinary incontinence without sensory awareness 1 10/04/2012 Urge incontinence 08/03/2013 Stress incontinence 08/03/2013 Ankylosing spondylitis of site in spine 08/03/20 13 Resolved Problems Problem Noted Date Diagnosed Date Resolved Date Hypothermia 06/02/2024 06/03/2024 Overview (06/02/2024): Mild hypothermia to 94.3 F Concurrent bradycardia and hypotension, improving with fluid bolus and warming blankets Transfer to ICU for ulysses hugger Consider fungal w/u if remains hypothermic despite warming measures Encounters Date Type Department Care Team Description 03/10/2025 Telephone [facility] [address] [place] [address] Rosey Chan MD Appt Changes from Last 3 Months Family History Medical History Relation Name Comments Hypertension Mother Other cancer Other Relation Name Status Comments Mother Other Social History Tobacco Use Types Packs/Day Years Used Date Smoking Tobacco: Every Day Smokeless Tobacco: Never Tobacco Cessation:Ready to Q uit: Not Asked; Counseling Given: Not Answered Alcohol Use Standard Drinks/Week Comments No 0 [...] place to sleep or slept in a senior care (including now)? No 06/02/2024 Utilities Answer Date Recorded In the past 12 months has th e electric, gas, oil, or water company threatened to shut off services in your home? No 06/02/2024 Comments Unknown Sex and Gender Information Value Date Recorded Sex Assigned at Not on file Legal Sex Female 8:12 PM EDT Gender Identity Not on file Sexual Orientation Not on file Last Filed Vital Signs Vital Sign Reading Time Taken Comments Blood Pressure 104/54 10/11/2024 11:03 AM EST Pulse 79 10/11/2024 11:03 AM EST Temperature 36.6 C (97.8 F) 06/09/2024 7:18 AM EDT Respiratory Rate 16 06/09/2024 7:18 AM EDT Oxygen Saturation 96% 06/09/2024 7:18 AM EDT Inhaled Oxygen Concentration - - Weight 83 kg (182 lb 15.7 oz) 07/01/2024 11:31 A M EDT Height 165.1 cm (5' 5 ) 07/01/2024 11:31 AM EDT Body Mass Index 30.45 07/01/2024 11:31 AM EDT Plan of Treatment Upcoming Encounters Date Type Department Care Team (Late st Contact Info) Description 05/31/2025 9:20 AM EDT Office Visit [place] [facility] [address] [place] [address] Rosey Chan MD [address] [place] [address] Health Maintenance Due Date Last Done Comments [facility]-Bone Density Scan 1945 [facility]-Medicare Annual Wellness (AWV) 1945 [facility]-/Child/Adol SDOH Screenings 1945 [facility]-DTaP,Tdap,and Td Vaccine s (1 - Tdap) 1964 [facility]-Hepatitis A Vaccines (1 of 2 - Risk 2-dose series) 1964 [facility]-Zoster Vaccines (1 of 2) 1995 [facility]-Pneumococcal Vaccine: 50 + Years (2 of 2 - PPSV23) 08/25/2014 06/30/2014 [facility]-RSV Vaccine: 60+ Years o r (1 - 1-dose 75+ series) 2020 [id number]-17 Vaccine (3 - Pfizer risk series) 11/29/2020 11/01/2020, 10/09/2020 [facility]- SDOH Screenings 12/01/2024 [facility]-Adult SDOH Screenings 12/01/2024 06/02/2024 [facility]-Influenza Vaccine (#1) 05/01/202509/04, 06/05/2017, 06/24/2016 [facility]-Depression Screening 07/01/2025 07/01/2024 [facility]-Hepatitis C Screening Completed 10/14/2019 [facility]-Obesity Intervention Completed 024, 06/01/2024 HPV Vaccines Aged Out No longer eligi ble based on patient's age to complete this topic [facility]-HIB Vaccines Aged Out No longer e ligible based on patient's age to complete this topic [facility]-IPV Vaccines Aged Out No longer e ligible based on patient's age to complete this topic [facility]-Rotavirus Vaccines Aged Out No lo nger eligible based on patient's age to complete this topic Procedures Procedure Name Priority Date/Time Associated Diagnosis Comments HEPATITIS C ANTIBODY - ED W/REFLEX TO HCV QUANT PCR Routine 10/14/2019 1:47 PM EST from Last 3 Months or Most Recently Relevant to Health Maintenance Results * Robert Hepatitis C Antibody (10/14/2019 1:47 PM EST) Robert Hepatitis C Ab NEGATIVE Reference Range: Negative SUNQUEST 10/14/2019 1:47 PM EST 10/14/2019 2:18 PM EST us Willy Stevenson MD LAB BLOOD ORDERABLES Final Re sult SUNQUEST from Last 3 Months or Most Recently Relevant to Health Maintenance Insurance MEDICARE [place]ICAID-[place] Advance Directives Documents on File Type Date Recorded Patient Repair Armature Winder Helper Expl anation Power of Medical Technologist Blood Bank 06/13/2024 11:11 AM POA Advance Directives and Livin g Will 01/07/2023 9:02 AM Power of Medical Technologist Blood Bank 01/07/2023 9:02 AM * Full Code (Latest Code Status on File) Date Activated Date Inactivated Comments 06/02/2024 3:22 AM 06/09/2024 8:04 PM Question Answer Comments Patient has decision-making capacity? No Healthcare Surrogate: Healthcare POA Name of Healthcare Surrogate: Nicholas Jones [facility], Care Teams Machine Shop Helper Relationship Specialty Start Date End Date Dom Pineda MD [address] [place] [address] PCP - General 01/11/21
[2025-03-20 02:50] VITALS: BP 156/75; PULSE 59; PULSE 61; O2SAT 92; O2SAT 94
[2025-03-20 03:01] VITALS: BP 154/74; PULSE 59; O2SAT 95
[2025-03-20 03:30] VITALS: BP 150/79; PULSE 61; O2SAT 95
[2025-03-20 03:54] VITALS: BP 150/79; PULSE 61; RESP 16; TEMP 36.6; O2SAT 95
== END 2025-03-20 03:56 | disposition home or self-care (01) ==
PROVIDERS: Emergency Provider Emergency Medicine
DX: M79.18 Myalgia, other site (principal); F03.90 Unspecified dementia, unspecified severity, without behavioral disturbance, psychotic disturbance, mood disturbance, and anxiety; W19.XXXA Unspecified fall, initial encounter; E78.5 Hyperlipidemia, unspecified
CPT/HCPCS: 70450; 71045; 72125; 72170; 99285

== ENCOUNTER 2025-03-22 07:13 | Outpatient (CLI) | payer MEDICARE, MEDICAID, SELFPAY ==
--- OUTSIDE RECORDS SUMMARY | 2025-03-22 07:14 | XMS_ITS | Encounter Summary ---
Author Organization [facility] Address [address] [place] [address] Care Team Providers Care Boiler Operator Name Role Phone Dom Pineda MD Primary Care Provider [phone] Reason for Visit * Reason Onset Date Comments Appt Changes 03/10/2025 Encounter Details Date Type Department Care Team (Late st Contact Info) Description 03/10/2025 Telephone [facility] [address] [place] [address] Rosey Chan MD [address] [place] [address] Appt Changes Social History Tobacco [...] place to sleep or slept in a half-way (including now)? No 06/02/2024 Utilities Answer Date [...] EDT I spoke chaya Moyer from the [place] and updated appointment information from to 05/31 at 9:20 am in the [place] [facility] at [address] [place] [address], [id number] documented in this encounter Plan of Treatment Upcoming Encounters Date Type Department Care Team (Late st Contact Info) Description 05/31/2025 9:20 AM EDT Office Visit [place] [facility] [address] [place] [address] Rosey Chan MD [address] [place] [address] documented as of this encounter Visit Diagnoses Not on filedocumented in this encounter Additional Health Concerns Assessment Noted Time A Body Mass Index follow-up plan has been documented for the patient 07/02/2024 10:02 PM EDT documented as of this encounter Care Teams Boiler Operator Relationship Specialty Start Date End Date Dom Pineda MD [address] [place] [address] PCP - General 01/11/21 documented as of this encounter
--- OUTSIDE RECORDS SUMMARY | 2025-03-22 07:14 | XMS_ITS | Clinical Summary ---
Author Organization [facility] Address [address] [place] [address] Care Team Providers Care Trains Service Conductor Name Role Phone Dom Pineda MD Primary Care Provider [phone] Allergies Active Allergy Reactions Criticality Noted Date [...] for SpO2 goal 90% Wean as tolerated senior care resident 06/02/2024 Gross hematuria 05/30/2024 Abnormal uterine [...] Type Department Care Team Description 03/10/2025 Telephone [place] [facility] [address] [place] [address] Rosey Chan MD Appt Changes [...] place to sleep or slept in a snf (including now)? No 06/02/2024 Utilities Answer Date [...] Office Visit [place] [facility] [address], [address] [place] [address] Rosey Chan MD [address] [place] [address] Health Maintenance Due Date Last [...] r (1 - 1-dose 75+ series) 2020 [id number] Vaccine (3 - Pfizer risk series) 11/29/2020 [...] Documents on File Type Date Recorded Patient Grievance Manager Expl anation Power of Work Order Detailer 06/13/2024 11:11 AM POA Advance Directives and Livin g Will 01/07/2023 9:02 AM Power of Work Order Detailer 01/07/2023 9:02 AM * Full Code (Latest Code Status on File) Date Activated Date Inactivated Comments 06/02/2024 3:22 AM 06/09/2024 8:04 PM Question Answer Comments Patient has decision-making capacity? No Healthcare Surrogate: Healthcare POA Name of Healthcare Surrogate: Nicholas Jones [facility], Care Teams Trains Service Conductor Relationship Specialty Start Date End Date Dom Pineda MD [address] [place] [address] PCP - General 01/11/21
--- OUTSIDE RECORDS SUMMARY | 2025-03-22 07:14 | XMS_ITS | Clinical Summary ---
Author Organization [facility] Address [address] [place] [place] [address] Phone Care Team Providers Care Communication Lecturer Name Role Phone Unavailable Primary Care Provider [...] age to complete this topic Insurance MEDICAID [place] MEDICARE [place] PART A AND B
[2025-03-22 08:10] LABS: Cholesterol 135 mg/dl (140-200); HDL Cholesterol 65 mg/dl (40-60); Triglycerides 106 mg/dl (30-150)
[2025-03-22 08:46] LABS: Iron 81 ug/dL (37-170)
[2025-03-22 08:56] LABS: Total Iron Binding Capacity 269 ug/dL (265-497)
[2025-03-22 09:23] LABS: Ferritin 34.5 ng/ml (11.1-264)
[2025-03-22 09:37] LABS: Hepatitis C Ab Qual. W/ RFX NEGATIVE (Negative)
[2025-03-22 11:05] LABS: Hemoglobin A1C 5.2 % (4.0-6.0)
== END 2025-03-22 23:59 | disposition home or self-care (01) ==
PROVIDERS: PCP Family Medicine; Visit Provider Nurse Practitioner Family
DX: E78.5 Hyperlipidemia, unspecified (principal); Z13.1 Encounter for screening for diabetes mellitus; D64.9 Anemia, unspecified; Z11.4 Encounter for screening for human immunodeficiency virus [HIV]; Z11.59 Encounter for screening for other viral diseases
CPT/HCPCS: 36415; 80061; 80074; 82728; 83036; 83540; 83550; 87389

== ENCOUNTER 2025-04-24 19:27 | Emergency (ER) | payer MEDICARE, MEDICAID, SELFPAY ==
--- NOTE | 2025-04-24 19:31 | HMH.EDGENADL ---
Discharge Plan Disposition Patient Disposition: Home, Self-Care Condition: Fair Prescriptions Prescriptions: No Action donepezil 10 mg tablet 10 mg PO HS albuterol sulfate [Ventolin HFA] 90 mcg/actuation HFA aerosol inhaler 2 puff IH Q6HP PRN (Reason: Shortness Of Breath) risperidone 0.25 mg tablet 0.25 mg PO DAILY methenamine hippurate 1 gram tablet 1 g PO BID ferrous sulfate 325 mg (65 mg iron) tablet 325 mg PO DAILY ascorbic acid (vitamin C) [Vitamin C] 500 mg tablet 500 mg PO DAILY Acid Gone Antacid 95-358 mg/15 mL suspension 30 ml PO Q4HP PRN (Reason: GI upset) ondansetron HCl 4 mg tablet 4 mg PO Q6HP PRN (Reason: Nausea) dextromethorphan-guaifenesin [Robitussin Cough-Chest Trent DM] 5-100 mg/5 mL liquid 10 ml PO Q6HP PRN (Reason: Cough) acetaminophen 500 mg tablet 500 mg PO QID cranberry extract 425 mg capsule 850 mg PO DAILY Rx Instructions: administer with a meal multivitamin Tablet 1 tab PO DAILY aspirin [Aspirin Childrens] 81 mg tablet,chewable 81 mg PO DAILY Qty: 90 3RF gabapentin 300 mg capsule 300 mg PO BID Qty: 60 5RF fluoxetine 10 mg capsule 50 mg PO DAILY Qty: 30 2RF atorvastatin 40 MG tablet 40 mg PO HS risperidone 0.5 mg tablet 0.25 mg PO BID 30 Days Qty: 0 0RF memantine 28 mg capsule,sprinkle,ER 24hr 28 mg PO DAILY docusate sodium 100 mg Capsule 100 mg PO BID Referrals Follow up/Referrals: Provider,Referral, MD [Primary Care Provider, Medical] - See instructions Activity Restrictions/Add. Instructions Additional Instructions/Restrictions: You are okay to return to your facility return to the emergency department for any acute or worsening symptoms. Clinical Impressions Clinical Impression: Fall Print Language Print Language: American Discharge ED Provider: Saba Vivas General Adult HPI General Chief complaint: Fall Stated complaint: Fall Time Seen by Provider: 04/24/25 19:31 History of Present Illness HPI narrative: Patient is a 71-year-old female who presented to the emergency department after a slip and fall out of her bed. Mechanical in nature. Witnessed by staff. No complaints at this time. No head strike. Related Data Home Medications ?Medication ?Instructions ?Recorded ?Confirmed donepezil 10 mg tablet 10 mg PO HS 01/02/20 04/26/25 atorvastatin 40 mg tablet 40 mg PO HS 01/24/20 04/26/25 albuterol sulfate 90 mcg/actuation 2 puff inhalation Q6HP PRN 01/29/22 04/26/25 aerosol inhaler (Ventolin HFA) Shortness Of Breath memantine 28 mg capsule 28 mg PO DAILY 07/23/23 04/26/25 sprinkle,extended release 24hr docusate sodium 100 mg capsule 100 mg PO BID 07/24/23 04/26/25 cranberry extract 425 mg capsule 850 mg PO DAILY 08/06/23 04/26/25 multivitamin 1 tab PO DAILY 08/06/23 04/26/25 aluminum hydrox-magnesium carb 95 30 ml PO Q4HP PRN GI upset 08/30/24 04/26/25 mg-358 mg/15 mL oral suspension (Acid Gone Antacid) dextromethorphan-guaifenesin 5 10 ml PO Q6HP PRN Cough 08/30/24 04/26/25 mg-100 mg/5 mL oral liquid (Robitussin Cough-Chest Congestion DM) ondansetron HCl 4 mg tablet 4 mg PO Q6HP PRN Nausea 08/30/24 04/26/25 ascorbic acid (vitamin C) 500 mg 500 mg PO DAILY 10/19/24 04/26/25 tablet (Vitamin C) methenamine hippurate 1 gram tablet 1 g PO BID 11/02/24 04/26/25 acetaminophen 500 mg tablet 500 mg PO QID 01/10/25 04/26/25 ferrous sulfate 325 mg (65 mg 325 mg PO DAILY 01/10/25 04/26/25 iron) tablet risperidone 0.25 mg tablet 0.25 mg PO DAILY 04/18/25 04/26/25 Previous Rx's ?Medication ?Instructions ?Recorded aspirin 81 mg chewable tablet 81 mg PO DAILY #90 tabs 05/05/24 (Aspirin Childrens) risperidone 0.5 mg tablet 0.25 mg (1/2 x 0.5 mg) PO BID 30 09/28/24 days #0 tabs gabapentin 300 mg capsule 300 mg PO BID #60 caps 11/29/24 fluoxetine 10 mg capsule 50 mg (5 x 10 mg) PO DAILY #30 caps 02/15/25 Allergies Allergy/AdvReac Type Severity Reaction Status Date / Time diphtheria toxoid,fluid Allergy Unknown Unknown Verified 04/18/25 11:25 (DIPHTHERIA TOXOID,FLUID) allergy reaction Penicillins (PENICILLINS) Allergy Unknown Unknown Verified 04/18/25 11:25 allergy reaction Sulfa (Sulfonamide Allergy Unknown Unknown Verified 04/18/25 11:25 Antibiotics) (SULFA allergy (SULFONAMIDE ANTIBIOTICS)) reaction tetanus and diphtheria Allergy Unknown Unknown Verified 04/18/25 11:25 toxoids (TETANUS & allergy DIPHTHERIA TOXOIDS) reaction codeine Allergy Unknown Verified 04/18/25 11:25 allergy reaction morphine Allergy Unknown Verified 04/18/25 11:25 allergy reaction PFSH PFSH Disclaimer: The information contained in this section may have been updated after the patient was seen, as this information can be updated by other users. 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 Falls Fracture of tubercle of left pubis Diastolic dysfunction Ambulatory dysfunction Peripheral arterial occlusive disease Bilateral primary osteoarthritis of hip Cerebral aneurysm, nonruptured Vitamin B12 deficiency anemia, unspecified Anxiety disorder, unspecified Dementia in other diseases classified elsewhere, unspecified severity, with other behavioral disturbance Bipolar disorder, current episode mixed, unspecified Obesity (BMI 30.0-34.9) Lumbar radicular pain Adrenal mass, left AAA (abdominal aortic aneurysm) without rupture Diverticulosis Tobacco use Surgical History History of laparotomy Social History Smoking Status: Never smoker alcohol intake: never substance use type: denies use current occupational status: disabled Travel in the last 8 weeks?: None household members: other housing: assisted living facility current occupational exposures/hazards: No caffeine: Yes Other Medical History Have you received the Flu Vaccine for this season: No Have you received the Pneumonia Vaccine: Yes (12/05/24) ROS Obtained: Yes All systems reviewed & no additional complaints except as documented, Yes Systems reviewed as appropriate & no additional complaints except as documented and Yes other Physical Exam General General appearance: alert and in no apparent distress Head Head exam: atraumatic, normocephalic and normal inspection Eye Eye exam: Present normal appearance, PERRL and EOMI; Absent scleral icterus ENT ENT exam: Present normal exam and normal external ear exam Neck Neck exam: Present normal inspection and full ROM Chest Chest inspection: Present normal inspection and symmetric chest wall rise Respiratory Respiratory exam: Present normal lung sounds bilaterally; Absent respiratory distress or wheezes Cardiovascular Cardiovascular exam: Present regular rate, normal rhythm and normal heart sounds Abdominal Exam Abdominal exam: Present soft and distention; Absent tenderness, guarding or rebound Extremities Exam Extremities exam: Present full ROM and other (LLE appears shortened) Back Exam Back exam: Present normal inspection and full ROM Neurological Exam Neurological exam: Present alert and oriented X3 Psychiatric Psychiatric exam: Present normal affect and normal mood Skin Skin exam: Present warm and dry Medical Decision Making Medical Records Medical records reviewed: Yes I reviewed the patient's medical records. Screening: Per USPSTF and CDC recommendations, given the prevalence of disease in our region, it is our hospital?s policy to screen for HIV and viral Hepatitis for all patients aged 18 and over and those with ongoing risk factors. Nico Inquiry Pt receiving controlled substance: No Vital Signs: 04/24/25 19:43 04/24/25 20:06 04/24/25 21:00 Temperature 98.0 F Temperature Source Oral Pulse Rate 67 Pulse Rate [Right Radial] 67 Respiratory Rate 18 16 Blood Pressure 134/65 Blood Pressure [Right Arm] 132/73 Blood Pressure Mean Blood Pressure Mean [Right Arm] 92 Blood Pressure Source Blood Pressure Source [Right Arm] Automatic Cuff Blood Pressure Position Blood Pressure Position [Right Arm] Supine 02 Sat by Pulse Oximetry 96 100 94 L Oxygen Delivery Method Room Air 04/24/25 21:30 04/24/25 22:02 Temperature 98.0 F Temperature Source Oral Pulse Rate 67 67 Pulse Rate [Right Radial] Respiratory Rate 16 20 Blood Pressure 147/76 H 143/74 H Blood Pressure [Right Arm] Blood Pressure Mean 99 Blood Pressure Mean [Right Arm] Blood Pressure Source Automatic Cuff Blood Pressure Source [Right Arm] Blood Pressure Position Sitting Blood Pressure Position [Right Arm] 02 Sat by Pulse Oximetry 94 L Oxygen Delivery Method Room Air Lab Data Lab results reviewed: Yes I reviewed the patient's lab results. Orders (Tests/Meds): ORDERS Category Date Time Status CT cervical spine wo con Stat Cat Scan 04/24/25 19:[address] head/brain wo con Stat Cat Scan 04/24/25 19:52 Completed CXR --portable [XR chest portable] Stat Exams 04/24/25 19:52 Completed Femur XR left 2 views [XR femur LT 2V] Stat Exams 04/24/25 19:52 Completed Hip XR left minimum 2 views [XR hip LT 2-3V w/pelvis] Exams 04/24/25 19:52 Completed Stat Shoulder XR left minimum 2 views [XR shoulder LT min 2V Exams 04/24/25 21:21 Completed ] Stat Medical Decision Narrative: Is a 79-year-old presents emergency department from her nursing facility after a fall out of her bed. On arrival, patient was hemodynamically stable with unremarkable vital signs. Differential includes but not limited to: Fracture, dislocation, muscular pain, cervical pathology, among others. CT head and CT cervical spine were reviewed and interpreted by myself and showed no acute pathology. Patient had no abdominal tenderness or other spinal tenderness therefore imaging is not indicated. Patient's left lower extremity appears shortened and on exam therefore x-ray of the pelvis and the left lower extremity showed no acute pathology. X-ray of the left shoulder was obtained given that chest x-ray showed possible dislocation of the left shoulder. Dedicated imaging of the shoulder was obtained which showed a chronic left shoulder dislocation, which on chart review was present on multiple prior imaging studies. Patient was deemed appropriate for discharge back to her nursing facility. Critical Care Critical Care Time Critical Care Time: No
--- OUTSIDE RECORDS SUMMARY | 2025-04-24 19:39 | XMS_ITS | Encounter Summary ---
Author Organization [facility] Address [address] [place] [address] Care Team Providers Care Envelope Adjuster Name Role Phone Dom Pineda MD Primary Care Provider [phone] Reason for Visit * Reason Onset Date Comments Appt Changes 03/10/2025 Encounter Details Date Type Department Care Team (Late st Contact Info) Description 03/10/2025 Telephone [place] [facility] [address] [place] [address] Rosey Chan MD [address] [place] [address] Appt Changes Social History Tobacco [...] place to sleep or slept in a fpc (including now)? No 06/02/2024 Utilities Answer Date [...] EDT I spoke chaya Moyer from the [place] and updated appointment information from to 05/31 at 9:20 am in the [facility] at [address] [place] [address], [address] documented in this encounter Plan of Treatment Upcoming Encounters Date Type Department Care Team (Late st Contact Info) Description 05/31/2025 9:20 AM EDT Office Visit [place] [facility] [address] [place] [address] Rosey Chan MD [address] [place] [address] documented as of this encounter Visit Diagnoses Not on filedocumented in this encounter Additional Health Concerns Assessment Noted Time A Body Mass Index follow-up plan has been documented for the patient 07/02/2024 10:02 PM EDT documented as of this encounter Care Teams Envelope Adjuster Relationship Specialty Start Date End Date Dom Pineda MD [address] [place] [address] PCP - General 01/11/21 documented as of this encounter
--- OUTSIDE RECORDS SUMMARY | 2025-04-24 19:39 | XMS_ITS | Clinical Summary ---
Author Organization [facility] Address [address] [place] [address] Care Team Providers Care Floor Layer Helper Name Role Phone Dom Pineda MD Primary Care Provider [phone] Allergies Active Allergy Reactions Criticality Noted Date [...] for SpO2 goal 90% Wean as tolerated retirement resident 06/02/2024 Gross hematuria 05/30/2024 Abnormal uterine [...] Type Department Care Team Description 03/10/2025 Telephone [place] [facility] [address] [place] [address] Rosey Chan MD Appt Changes [...] place to sleep or slept in a chcf (including now)? No 06/02/2024 Utilities Answer Date [...] Office Visit [place] [facility] [address] [place] [address] Rosey Chan MD [address] [place] [address] Health Maintenance Due Date Last Done Comments [facility]-Bone Density Scan 1945 [facility]-Medicare Annual Wellness (AWV) 1945 [facility]-Infant/Child/Adol SDOH Screenings 1945 [facility]-DTaP,Tdap,and Td Vaccine s (1 - Tdap) 1964 [facility]-Hepatitis A Vaccines (1 of 2 - Risk 2-dose series) 1964 [facility]-Zoster Vaccines (1 of 2) 1995 [facility]-Pneumococcal Vaccine: 50 + Years (2 of 2 - PPSV23) 08/25/2014 06/30/2014 [facility]-RSV Vaccine: 60+ Years o r (1 - 1-dose 75+ series) 2020 [id number] Vaccine (3 - Pfizer risk series) 11/29/2020 [...] Documents on File Type Date Recorded Patient Vest Front Presser Expl anation Power of Civil Engineering Assistant 06/13/2024 11:11 AM POA Advance Directives and Livin g Will 01/07/2023 9:02 AM Power of Civil Engineering Assistant 01/07/2023 9:02 AM * Full Code (Latest Code Status on File) Date Activated Date Inactivated Comments 06/02/2024 3:22 AM 06/09/2024 8:04 PM Question Answer Comments Patient has decision-making capacity? No Healthcare Surrogate: Healthcare POA Name of Healthcare Surrogate: Nicholas Jones [facility], Care Teams Floor Layer Helper Relationship Specialty Start Date End Date Dom Pineda MD [address] [place] [address] PCP - General 01/11/21
--- OUTSIDE RECORDS SUMMARY | 2025-04-24 19:39 | XMS_ITS | Clinical Summary ---
Author Organization [facility] Address [address] [place] [address] Phone Care Team Providers Care Artificial Stone Setter Name Role Phone Unavailable Primary Care Provider [...] age to complete this topic Insurance MEDICAID [place] PART A AND B
[2025-04-24 19:43] VITALS: BP 132/73; PULSE 67; RESP 18; TEMP 36.7; O2SAT 96; BMI 39.0
--- NOTE | 2025-04-24 19:52 | CT_ITS ---
PROCEDURE INFORMATION: Exam: CT Head Without Contrast Exam date and time: 04/24/2025 8:25 PM Age: 79 years old Clinical indication: Injury or trauma; Fall TECHNIQUE: Imaging protocol: Computed tomography of the head without contrast. Radiation optimization: All CT scans at this facility use at least one of these dose optimization techniques: automated exposure control; mA and/or kV adjustment per patient size (includes targeted exams where dose is matched to clinical indication); or iterative reconstruction. COMPARISON: CT HEAD/BRAIN WO CON 03/20/2025 2:25 AM FINDINGS: Brain: No intracranial hemorrhage. Generalized atrophic changes of the ventricles and subarachnoid spaces. Chronic small-vessel ischemic changes noted. No mass, mass effect or midline shift. Intracranial atherosclerotic changes are noted. Cerebral ventricles: See Brain finding. Paranasal sinuses: Visualized sinuses are unremarkable. No fluid levels. Mastoid air cells: Visualized mastoid air cells are well aerated. Bones: Unremarkable. No acute fracture. Soft tissues: Unremarkable. IMPRESSION: Stable noncontrast CT brain with chronic changes. No acute intracranial abnormality.
--- NOTE | 2025-04-24 19:52 | CT_ITS ---
PROCEDURE INFORMATION: Exam: CT Cervical Spine Without Contrast Exam date and time: 04/24/2025 8:27 PM Age: 79 years old Clinical indication: Injury or trauma; Fall TECHNIQUE: Imaging protocol: Computed tomography of the cervical spine without contrast. Radiation optimization: All CT scans at this facility use at least one of these dose optimization techniques: automated exposure control; mA and/or kV adjustment per patient size (includes targeted exams where dose is matched to clinical indication); or iterative reconstruction. COMPARISON: CT CERVICAL SPINE WO CON 03/20/2025 2:27 AM FINDINGS: Bones: No evident fracture. Degenerative changes of the C-spine most pronounced at C3-C4 through C6-C7. Otherwise unremarkable CT of the C-spine. Alignment and vertebral body heights are intact. Lungs: Lung apices are normal. Soft tissues: A 2.1 cm nodule noted in the inferior left lobe of the thyroid. Advise nonemergent ultrasound of the thyroid. IMPRESSION: 1. Degenerative changes. No acute abnormality. 2. A 2.1 cm nodule noted in the inferior left lobe of the thyroid. Advise nonemergent ultrasound of the thyroid. COMMENTS: Consistent with the [place] [employer]'s Incidental Findings Committee white paper (J Am Stewart Radiol 2015): In patients aged 35 years and older with an incidental thyroid nodule equal to or greater than 1.[address], MRI or extrathyroidal US, further evaluation with dedicated thyroid US is recommended for patients with normal life expectancy and without comorbidities. For smaller nodules without suspicious features, no further evaluation or follow up is recommended.
--- NOTE | 2025-04-24 19:52 | XR_ITS ---
PROCEDURE INFORMATION: Exam: XR Left Femur Exam date and time: 04/24/2025 8:08 PM Age: 79 years old Clinical indication: Pain; Thigh; Left; Additional info: Fall TECHNIQUE: Imaging protocol: Radiologic exam of the left femur. Views: 2 views. COMPARISON: CR XR FEMUR LT 2V 12/07/2019 6:54 AM FINDINGS: Bones/joints: Left total hip replacement without evidence of complication. Degenerative changes in the knee. No acute fracture in the femoral shaft and distal femur.. Soft tissues: Unremarkable. IMPRESSION: 1. Left total hip replacement without evidence of complication. 2. No acute fracture in the femoral shaft and distal femur..
--- NOTE | 2025-04-24 19:52 | XR_ITS ---
PROCEDURE INFORMATION: Exam: XR Left Hip Exam date and time: 04/24/2025 8:08 PM Age: 79 years old Clinical indication: Hip pain; Left hip; Additional info: Fall TECHNIQUE: Imaging protocol: Radiologic exam of the left hip. Views: 2 or 3 views hip with pelvis when performed. COMPARISON: CR XR PELVIS 1-2V 03/20/2025 2:30 AM FINDINGS: Bones/joints: Total hip replacement bilaterally..Impression. There is no evidence of acute fracture.There is no evidence of malalignment or dislocation. Soft tissues: Unremarkable. Organs: Calcification in the right abdomen may represent gallstone. IMPRESSION: 1. Calcification in the right abdomen may represent gallstone. 2. There is no evidence of acute fracture.There is no evidence of malalignment or dislocation. 3 total hip replacement bilaterally
--- NOTE | 2025-04-24 19:52 | XR_ITS ---
PROCEDURE INFORMATION: Exam: XR Chest Exam date and time: 04/24/2025 8:08 PM Age: 79 years old Clinical indication: Injury or trauma; Fall TECHNIQUE: Imaging protocol: Radiologic exam of the chest. Views: 1 view. COMPARISON: CR XR CHEST PORTABLE 03/20/2025 2:30 AM FINDINGS: Lungs: Hyperexpanded lung powell consistent with COPD . No focal consolidation Pleural spaces: Unremarkable. No pleural effusion. No pneumothorax. Heart/Mediastinum: Unremarkable. No cardiomegaly. Bones/joints: Possible dislocation of the left glenohumeral joint. Recommend left shoulder series especially with an axillary view. IMPRESSION: Possible dislocation of the left glenohumeral joint. Recommend left shoulder series especially with an axillary view.
[2025-04-24 20:06] VITALS: O2SAT 100
--- NOTE | 2025-04-24 20:29 | PC.NURSE ---
patient back from radiology
[2025-04-24 21:00] VITALS: BP 134/65; PULSE 67; RESP 16; O2SAT 94
--- NOTE | 2025-04-24 21:21 | XR_ITS ---
PROCEDURE INFORMATION: Exam: XR Left Shoulder Exam date and time: 04/24/2025 9:26 PM Age: 79 years old Clinical indication: Other: Concern for ? dislocation on cxr TECHNIQUE: Imaging protocol: Radiologic exam of the left shoulder. Views: 2 or more views. COMPARISON: CR XR SHOULDER LT MIN 2V 04/29/2023 6:56 PM FINDINGS: Bones/joints: The humeral head appears dislocated inferiorly.. Soft tissues: The axillary view does not show the glenohumeral joint. . IMPRESSION: 1. The axillary view does not show the glenohumeral joint. . Consider repeat attempt to confirm dislocation 2. The humeral head appears dislocated inferiorly..
--- NOTE | 2025-04-24 21:26 | PC.NURSE ---
xray at bedside
[2025-04-24 21:30] VITALS: BP 147/76; PULSE 67; RESP 16; O2SAT 94
--- NOTE | 2025-04-24 21:56 | PC.NURSE ---
Attempted to call report to [place] X 2 with no answer.
--- NOTE | 2025-04-24 21:58 | PC.NURSE ---
Report given to Siobhan @ [facility]
[2025-04-24 22:02] VITALS: BP 143/74; PULSE 67; RESP 20; TEMP 36.7; O2SAT 94
== END 2025-04-24 22:17 | disposition home or self-care (01) ==
PROVIDERS: Emergency Provider Student in an Organized Health Care Education/Training Program
DX: S43.005A Unspecified dislocation of left shoulder joint, initial encounter (principal); W19.XXXA Unspecified fall, initial encounter; E78.5 Hyperlipidemia, unspecified; I25.10 Atherosclerotic heart disease of native coronary artery without angina pectoris
CPT/HCPCS: 70450; 71045; 72125; 73030; 73502; 73552; 99284; 99285